=== PATIENT | male | born 1955 | race African-American/Black ===

== ENCOUNTER → 2018-03-29 | Outpatient (CLI) | payer MEDICARE, MEDICAID ==
[2017-04-11 14:57] VITALS: BP 149/76
[~2018-03-29] MED LIST: ALBU0.63 NEB; AMLO10TA6 PO; AZIT250T6 PO; CARV25TA PO; CARV25TA2 PO; CLON0.1T PO; DOXY100T PO; FLUT1DIS3 IH; FURO40TA4 PO; HYDR-2868 PO; HYDR-2869 PO; IPRA0.2S5 NEB; ISOS60TA2 PO; LISI-130 PO; METH4TAB2 PO; POTA10TA31 PO; SIMV20TA PO
--- NOTE | 2018-03-29 17:59 | CARD ---
MR#: [id number] Date of Study: 03/29/2018 Ordering Physician: CLAUDE LAUREANO, Referring Physician: CLAUDE LAUREANO, Tech: Rupali Garcia APPROVED REPORT EXAM: Two-dimensional and M-mode echocardiogram with Doppler and color Doppler. Other Information Quality : AverageHR: 38bpm INDICATION Cardiomyopathy RISK FACTORS Hypertension Hyperlipidemia Smoking 2D DIMENSIONS RVDd4.3 (2.9-3.5cm)Left Atrium(2D)4.3 (1.6-4.0cm) IVSd1.3 (0.7-1.1cm)Aortic Root(2D)4.0 (2.0-3.7cm) LVDd6.2 (3.9-5.9cm)LVOT Diameter2.3 (1.8-2.4cm) PWd1.2 (0.7-1.1cm)LVDs4.6 (2.5-4.0cm) FS (%) 24.8 %SV93.1 ml LVEF(%)48.3 (>50%) Aortic Valve AoV Peak Lorenzo.147.3cm/sAoV VTI30.3cm AO Peak GR.8.7mmHgLVOT Peak Lorenzo.73.3cm/s LVOT VTI 17.14cmAO Mean GR.5mmHg BILLY (VMAX)1.23cl8OLE (VTI)2.39cm2 AI P 1/2 Xqsj237nm Mitral Valve MV E Ssqjrigp07.7cm/sMV E Peak Gr.84mmHg MV DECEL [id number] A Unyipwgy76.6cm/s MV TKK81ojV/A Ratio1.4 MVA (PHT)3.16cm2 TDI E/Lateral E'8.1E/Medial E'7.1 Pulmonary Valve PV Peak Wgsgzfuf335.7cm/sPV Peak Grad.4mmHg Tricuspid Valve TR P. Ajklpbqd368gv/sRAP WPUABQEK7bqGo TR Peak Gr.58cyXyBSPM24hvDq LEFT VENTRICLE The Left Ventricle is mildly dilated. There is mild concentric left ventricular hypertrophy. The left ventricular systolic function is moderately impaired. The Ejection Fraction is 35%. There is global hypokinesis of the left ventricle. RIGHT VENTRICLE The right ventricle is mildly dilated. There is normal right ventricular wall thickness. The right ve ntricular systolic function is normal. ATRIA The left atrium size is normal. The right atrium is moderately dilated. The interatrial septum is int act with no evidence for an atrial septal defect or patent foramen ovale as noted on 2-D or Doppler i maging. AORTIC VALVE The aortic valve is normal in structure and function. Doppler and Color Flow revealed mild to moderat e aortic regurgitation. There is no significant aortic valvular stenosis. MITRAL VALVE The mitral valve is normal in structure and function. There is no mitral valve stenosis. Doppler and Color-flow revealed mild mitral regurgitation. TRICUSPID VALVE The tricuspid valve is normal in structure and function. Doppler and Color Flow revealed trace tricus pid regurgitation. There is no tricuspid valve stenosis. PULMONIC VALVE The pulmonic valve is not well visualized. Doppler and Color Flow revealed trace pulmonic valvular re gurgitation. GREAT VESSELS The aortic root is mildly enlarged. The IVC is normal in size and collapses >50% with inspiration. PERICARDIAL EFFUSION There is no evidence of significant pericardial effusion. Critical Notification Critical Value: No <Conclusion> The left ventricular systolic function is moderately impaired. The Ejection Fraction is 35%. Mild to moderate aortic regurgitation. Mild mitral regurgitation. Trace tricuspid regurgitation. There is no evidence of significant pericardial effusion. Signed by : Talat Schwartz, Electronically Approved : 03/29/2018 17:58:00
== END | disposition home or self-care (01) ==
LOC: ECHO 11:04
PROVIDERS: ATTEND Internal Medicine Cardiovascular Disease
DX: I08.0 Rheumatic disorders of both mitral and aortic valves (principal); I13.0 Hypertensive heart and chronic kidney disease with heart failure and stage 1 through stage 4 chronic kidney disease, or unspecified chronic kidney disease; I50.20 Unspecified systolic (congestive) heart failure; N18.3 Chronic kidney disease, stage 3 (moderate); E78.5 Hyperlipidemia, unspecified; F17.210 Nicotine dependence, cigarettes, uncomplicated
CPT/HCPCS: 93306

== ENCOUNTER 2019-01-12 03:50 | Inpatient (IN) | payer MEDICARE, MEDICAID ==
[~2019-01-12] VITALS: Ht 185.4 cm; Wt 81.9 kg
[2019-01-12] VITALS (17 sets, daily range): BP systolic 104–152; BP diastolic 64–91
[~2019-01-12 03:50] MED LIST changes: -AMLO10TA6 PO; +AMLO10TA8 PO
[2019-01-12 04:15] LABS: BASO # 0.1 x10^3/uL (0.0-0.2); BASO % 1 % (0-3); EOS # 0.2 x10^3/uL (0.0-0.7); EOS % 2 % (0-3); HEMATOCRIT 46.3 % (39.0-53.0); HEMOGLOBIN 15.9 g/dL (13.0-17.5); LYMPH # 1.4 x10^3/uL (1.0-4.8); LYMPH % 16 % (24-48); MEAN CORPUSCULAR HEMOGLOBIN 33 pg (25-35); MEAN CORPUSCULAR HGB CONC 34 g/dL (31-37); MEAN CORPUSCULAR VOLUME 97 fL (79-100); MONO # 1.2 x10^3/uL (0.0-1.1); MONO % 13 % (0-9); NEUT # 6.2 x10^3/uL (1.8-7.7); NEUT % 69 % (31-73); PLATELET COUNT 110 x10^3/uL (140-400); RED BLOOD COUNT 4.79 x10^6/uL (4.30-5.70); RED CELL DISTRIBUTION WIDTH 15.1 % (11.5-14.5)
[2019-01-12] MEDS ORDERED: methylPREDNISolone SOD SUCC PF 125 MG/2 ML VIAL. IV ONE (04:15)
[2019-01-12] MEDS ORDERED: IPRATRPIUM/ALBUTEROL 0.5/2.5MG 3 ML NEBU. NEB ONE (04:15)
[2019-01-12 04:32] LABS: ALBUMIN 3.6 g/dL (3.4-5.0); CALCIUM 9.7 mg/dL (8.5-10.1); CREATININE 1.4 mg/dL (0.7-1.3); GFR 62.1; POTASSIUM 3.8 mmol/L (3.5-5.1); TOTAL BILIRUBIN 0.7 mg/dL (0.2-1.0); TOTAL PROTEIN 7.1 g/dL (6.4-8.2)
--- NOTE | 2019-01-12 04:34 | PHYS DOC ---
Past Medical History Past Medical History: Asthma, CHF, COPD, Hypertension Past Surgical History: Other Additional Past Surgical Histo: HERNIA, L KNEE Alcohol Use: Occasionally Drug Use: Marijuana Adult General Chief Complaint Chief Complaint: SHORTNESS OF BREATH HPI HPI 63-year-old male presents to the emergency department with complaints of shortness of breath, cough nonproductive. Patient is well describes left flank and back pain no injury. History of COPD, tobacco abuse, alcohol use, THC, cocaine. Most recent cocaine use approximately 3 days ago. Patient states shortness of breath started today as used nebulizer treatments however no significant improvement. Patient called EMS given his continued shortness of breath low oxygen concern. Patient denies any chest pain, nausea, vomiting, abdominal pain, headache, visual changes. Exertion makes his shortness of breath worse. Review of Systems Review of Systems Constitutional: Denies fever or chills [] Eyes: Denies change in visual acuity, redness, or eye pain [] HENT: Denies nasal congestion Respiratory: Shortness of breath Cardiovascular: No additional information not addressed in HPI [] GI: Denies abdominal pain, nausea, vomiting, bloody stools or diarrhea [] : Denies dysuria or hematuria [] Musculoskeletal: left side low back pain Integument: Denies rash or skin lesions [] Neurologic: Denies headache, focal weakness or sensory changes [] All other systems were reviewed and found to be within normal limits, except as documented in this note. Current Medications Current Medications Current Medications Medications (Trade) Dose Ordered Sig/Dex Start Time Stop Time Status Last Admin Dose Admin Albuterol/ Ipratropium (Duoneb) 3 ml RTQID 01/12/19 08:00 01/13/19 07:59 Info (CONTRAST GIVEN -- Rx MONITORING) 1 each PRN DAILY PRN 01/12/19 05:15 01/14/19 05:14 Iohexol (Omnipaque 300 Mg/ml) 75 ml 1X ONCE 01/12/19 05:15 01/12/19 05:16 DC Methylprednisolone Sodium Succinate (SOLU-Medrol 125MG VIAL) 125 mg 1X ONCE 01/12/19 04:15 01/12/19 04:16 DC 01/12/19 04:51 125 MG Ondansetron HCl (Zofran) 4 mg PRN Q8HRS PRN 01/12/19 05:45 01/13/19 05:44 Piperacillin Sod/ Tazobactam Sod 4.5 gm/Sodium Chloride 100 ml @ 200 mls/hr 1X ONCE 01/12/19 06:00 01/12/19 06:29 01/12/19 06:04 200 MLS/HR Vancomycin HCl 1.75 gm/Sodium Chloride 500 ml @ 250 mls/hr 1X ONCE 01/12/19 06:00 01/12/19 07:59 Allergies Allergies Allergies Coded Allergies Type Severity Reaction Last Updated Verified No Known Drug Allergies 07/18/13 No Physical Exam Physical Exam Constitutional: Well developed, well nourished, no acute distress, non-toxic appearance. [] HENT: Normocephalic, atraumatic, bilateral external ears normal, oropharynx moist, no oral exudates, nose normal. [] Eyes: PERRLA, EOMI, conjunctiva normal, no discharge. [] Cardiovascular: Bradycardia Lungs & Thorax: Bilateral breath sounds clear to auscultation [] Abdomen: Bowel sounds normal, soft, no tenderness, no masses, no pulsatile masses. [] Skin: Warm, dry, no erythema, no rash. [] Back: TTP low back, no significant flank tenderness on exam Extremities: No tenderness, no cyanosis, no clubbing, ROM intact, no edema. [] Neurologic: Alert and oriented X 3, no focal deficits noted. [] Psychologic: Affect normal, judgement normal, mood normal. [] Current Patient Data Vital Signs Vital Signs Date Time Temp Pulse Resp B/P (MAP) Pulse Ox O2 Delivery O2 Flow Rate FiO2 01/12/19 04:53 39 173/80 (111) 92 Room Air 01/12/19 04:15 3.0 01/12/19 03:50 97.6 24 97.6 Lab Values Laboratory Tests Test 01/12/19 03:55 01/12/19 04:15 01/12/19 05:00 01/12/19 05:42 Sodium Level 143 mmol/L (136-145) Potassium Level 3.8 mmol/L (3.5-5.1) Chloride Level 107 mmol/L (98-107) Carbon Dioxide Level 26 mmol/L (21-32) Anion Gap 10 (6-14) Blood Urea Nitrogen 22 mg/dL (8-26) Creatinine 1.4 mg/dL (0.7-1.3) H Estimated GFR (Cockcroft-Gault) 62.1 BUN/Creatinine Ratio 16 (6-20) Glucose Level 86 mg/dL (70-99) Calcium Level 9.7 mg/dL (8.5-10.1) Total Bilirubin 0.7 mg/dL (0.2-1.0) Aspartate Amino Transferase (AST) 15 U/L (15-37) Alanine Aminotransferase (ALT) 15 U/L (16-63) L Alkaline Phosphatase 78 U/L (46-116) Troponin I Quantitative 0.051 ng/mL (0.000-0.055) UN-Pch-E-Type Natriuretic Peptide 1600 pg/mL (0-124) H Total Protein 7.1 g/dL (6.4-8.2) Albumin 3.6 g/dL (3.4-5.0) Albumin/Globulin Ratio 1.0 (1.0-1.7) White Blood Count 9.0 x10^3/uL (4.0-11.0) Red Blood Count 4.79 x10^6/uL (4.30-5.70) Hemoglobin 15.9 g/dL (13.0-17.5) Hematocrit 46.3 % (39.0-53.0) Mean Corpuscular Volume 97 fL (79-100) Mean Corpuscular Hemoglobin 33 pg (25-35) Mean Corpuscular Hemoglobin Concent 34 g/dL (31-37) Red Cell Distribution Width 15.1 % (11.5-14.5) H Platelet Count 110 x10^3/uL (140-400) L Neutrophils (%) (Auto) 69 % (31-73) Lymphocytes (%) (Auto) 16 % (24-48) L Monocytes (%) (Auto) 13 % (0-9) H Eosinophils (%) (Auto) 2 % (0-3) Basophils (%) (Auto) 1 % (0-3) Neutrophils # (Auto) 6.2 x10^3/uL (1.8-7.7) Lymphocytes # (Auto) 1.4 x10^3/uL (1.0-4.8) Monocytes # (Auto) 1.2 x10^3/uL (0.0-1.1) H Eosinophils # (Auto) 0.2 x10^3/uL (0.0-0.7) Basophils # (Auto) 0.1 x10^3/uL (0.0-0.2) Urine Opiates Screen Neg (NEG) Urine Methadone Screen Neg (NEG) Urine Barbiturates Neg (NEG) Urine Phencyclidine Screen Neg (NEG) Urine Amphetamine/Methamphetamine Neg (NEG) Urine Benzodiazepines Screen Neg (NEG) Urine Cocaine Screen Pos (NEG) Urine Cannabinoids Screen Neg (NEG) Urine Ethyl Alcohol Neg (NEG) O2 Saturation 91 % (92-99) L Arterial Blood pH 7.41 (7.35-7.45) Arterial Blood pCO2 at Patient Temp 37 mmHg (35-46) Arterial Blood pO2 at Patient Temp 58 mmHg (65-108) L Arterial Blood HCO3 23 mmol/L (21-28) Arterial Blood Base Excess -1 mmol/L (-3-3) FiO2 40 Laboratory Tests 01/12/19 04:15 Laboratory Tests 01/12/19 03:55 EKG EKG EKG reviewed, sinus bradycardia heart rate 48. Evidence of left bundle branch block however present on previous EKGs comparison in March 2017. Patient does have evidence of T-wave inversion V5 V6, this was present as well in 2017.[] Interpretation Time: Interpretation time 0 359 Radiology/Procedures Radiology/Procedures [facility] [address], [place] [id number] IMAGING REPORT Signed PATIENT: NEIL EWING ACCOUNT: [id number] : 1955 LOCATION: ER AGE: 63 SEX: M EXAM STATUS: REG ER ORD. PHYSICIAN: ALBARO SESAY MD REASON: abnormal chest xray, Dyspnea PROCEDURE: CT CHEST W/CONTRAST Examination: CT chest with IV contrast HISTORY: History of abnormal chest x-ray, dyspnea COMPARISON: 04/10/2017 TECHNIQUE: Axial CT images of chest were performed with IV contrast. Coronal and sagittal reformats are performed. Exposure: One or more of the following individualized dose reduction techniques were utilized for this examination: 1. Automated exposure control 2. Adjustment of the mA and/or kV according to patient size 3. Use of iterative reconstruction technique FINDINGS: 1.2 cm hypodensity identified in the left lobe of the thyroid gland.. Mild cardiomegaly. Coronary artery calcifications identified. There is occlusion of the right upper lobe bronchus with moderate size opacity in the right upper lobe with collapse of the right upper lobe likely postobstructive atelectasis possibly secondary to endobronchial pathology/mass. Mild patchy airspace opacities identified in the left lung base. Emphysematous bullae identified in the bilateral apical lungs. The liver, spleen, grossly appears unremarkable. Mild prominent appearing left adrenal gland. Moderate degenerative changes thoracic spine. IMPRESSION: 1. Collapse of the right upper lobe of the lung with occlusion of the right upper lobe bronchus suspicious for endobronchial mass or pathology. Recommend bronchoscopic evaluation. 2. Patchy airspace opacities identified in the left lung base likely atelectasis or infiltrates. 3. Mild prominent left adrenal gland partially visualized could be adrenal adenoma or metastasis or hyperplasia. 4. 1.2 cm hypodensity identified in the left lobe of the thyroid gland. Consider follow-up ultrasound thyroid for further evaluation. Electronically signed by: Mello Daniel MD (01/12/2019 5:29 AM) [facility] [place] DICTATED and SIGNED BY: MELLO DANIEL MD DATE: 01/12/19 0529 [] [facility] [address] [place] [address] IMAGING REPORT Signed PATIENT: NEIL EWING ACCOUNT: [id number] : 1955 LOCATION: ER AGE: 63 SEX: M EXAM STATUS: REG ER ORD. PHYSICIAN: ALBARO SESAY MD REASON: sob PROCEDURE: CHEST AP ONLY EXAM: CHEST 1 VIEW History: Shortness of breath COMPARISON: 04/09/2017 TECHNIQUE: Single portable radiograph of the chest Findings/ impression: Mild cardiomegaly. Moderate opacity identified in the right upper lobe of the lungs could be central obstructing mass or postobstructive atelectasis or pneumonia. Follow-up CT is recommended. Electronically signed by: Mello Daniel MD (01/12/2019 4:53 AM) [facility] DICTATED and SIGNED BY: MELLO DANIEL MD DATE: 01/12/19 0453 Course & Med Decision Making Course & Med Decision Making Pertinent Labs and Imaging studies reviewed. (See chart for details) []63-year-old male presents to the emergency department with complaints of shortness of breath, cough nonproductive. Patient is well describes left flank and back pain no injury. History of COPD, tobacco abuse, alcohol use, THC, cocaine. Most recent cocaine use approximately 3 days ago. Patient states shortness of breath started today as used nebulizer treatments however no significant improvement. Patient called EMS given his continued shortness of breath low oxygen concern. Patient denies any chest pain, nausea, vomiting, abdominal pain, headache, visual changes. Exertion makes his shortness of breath worse. Labs and imaging reviewed. BNP 1600, troponin 0.051, creatinine 1.4, pleasant, 110. Impression is pending. Chest x-ray reveals evidence of moderate opacity in right upper lobe with concern for obstructing mass or postobstructive ate lectasis or pneumonia. CT is pending. Patient received 125 Solu-Medrol, DuoNeb treatment upon arrival. Saturations have been 88-90% on 5 L. Patient is resting comfortably. ABG is pending - 7.41/37/58/[address] reveals evidence of complete collapse of right upper lobe likely secondary to endobronchial mass with evidence of postobstructive pneumonia. Antibiotics provided in the emergency department. We'll plan for admission and further evaluation with pulmonary consultation, plan for likely bronchoscopy. Discussed admit with Hospitalist. Arsenio Disclaimer Dragon Disclaimer This electronic medical record was generated, in whole or in part, using a voice recognition dictation system. Departure Departure Impression: Primary Impression: COPD exacerbation Additional Impressions: Lung mass Pneumonia Hypoxia Disposition: ADMITTED INPATIENT Admitting Physician: HIMZac Condition: STABLE Referrals: NO PCP (PCP) Problem Qualifiers Additional Impressions: Pneumonia Pneumonia type: due to unspecified organism Laterality: right Lung location: upper lobe of lung Qualified Codes: J18.1 - Lobar pneumonia, unspecified organism ALBARO SESAY MD Jan 12, 2019 04:34
--- NOTE | 2019-01-12 04:56 | RAD ---
EXAM: CHEST 1 VIEW History: Shortness of breath COMPARISON: 04/09/2017 TECHNIQUE: Single portable radiograph of the chest Findings/ impression: Mild cardiomegaly. Moderate opacity identified in the right upper lobe of the lungs could be central obstructing mass or postobstructive atelectasis or pneumonia. Follow-up CT is recommended. Electronically signed by: Mello Daniel MD (01/12/2019 4:53 AM) [facility]
[2019-01-12] MEDS ORDERED: IOHEXOL 300 MG/ML 100ML VIAL. IV ONE (05:15)
[2019-01-12] MEDS ORDERED: CONTRAST GIVEN. MC PRN (05:15)
--- NOTE | 2019-01-12 05:33 | RAD ---
Examination: CT chest with IV contrast HISTORY: History of abnormal chest x-ray, dyspnea COMPARISON: 04/10/2017 TECHNIQUE: Axial CT images of chest were performed with IV contrast. Coronal and sagittal reformats are performed. Exposure: One or more of the following individualized dose reduction techniques were utilized for this examination: 1. Automated exposure control 2. Adjustment of the mA and/or kV according to patient size 3. Use of iterative reconstruction technique FINDINGS: 1.2 cm hypodensity identified in the left lobe of the thyroid gland.. Mild cardiomegaly. Coronary artery calcifications identified. There is occlusion of the right upper lobe bronchus with moderate size opacity in the right upper lobe with collapse of the right upper lobe likely postobstructive atelectasis possibly secondary to endobronchial pathology/mass. Mild patchy airspace opacities identified in the left lung base. Emphysematous bullae identified in the bilateral apical lungs. The liver, spleen, grossly appears unremarkable. Mild prominent appearing left adrenal gland. Moderate degenerative changes thoracic spine. IMPRESSION: 1. Collapse of the right upper lobe of the lung with occlusion of the right upper lobe bronchus suspicious for endobronchial mass or pathology. Recommend bronchoscopic evaluation. 2. Patchy airspace opacities identified in the left lung base likely atelectasis or infiltrates. 3. Mild prominent left adrenal gland partially visualized could be adrenal adenoma or metastasis or hyperplasia. 4. 1.2 cm hypodensity identified in the left lobe of the thyroid gland. Consider follow-up ultrasound thyroid for further evaluation. Electronically signed by: Mello Daniel MD (01/12/2019 5:29 AM) [facility]
[2019-01-12 05:36] LABS: BARBITURATES NEG (NEG); BENZODIAZEPINES NEG (NEG); CANNABINOIDS NEG (NEG); COCAINE POS (NEG); METHADONE NEG (NEG); OPIATES NEG (NEG); PHENCYCLIDINE NEG (NEG)
[2019-01-12 05:37] LABS: AMPHETAMINE/METHAMPHETAMINE NEG (NEG)
[2019-01-12] MEDS ORDERED: ONDANSETRON PF 4 MG/2 ML VIAL. IV PRN (05:45)
[2019-01-12 05:58] LABS: BASE EXCESS ABG -1 mmol/L (-3-3); HCO3 ABG 23 mmol/L (21-28); PCO2 ABG 37 mmHg (35-46); PO2 ABG 58 mmHg (65-108); SAT O2 ABG 91 % (92-99)
[2019-01-12 05:59] LABS: FIO2 ABG 40
[2019-01-12] MEDS ORDERED: PIPERACILLIN/TAZOBACTAM 4.5 GM in IV NORMAL SALINE 100ML 100 ML IV ONE (06:00)
[2019-01-12] MEDS ORDERED: VANCOMYCIN 1.75 GM in IV NORMAL SALINE 500ML BAG 500 ML IV ONE (06:00)
--- NOTE | 2019-01-12 07:03 | EKG ---
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
[2019-01-12] MEDS ORDERED: FLU VAX QS 2019-20 (36MOS+)/PF 0.5 ML SYRINGE. VAX IM ONE (08:00)
[2019-01-12] MEDS: IPRATRPIUM/ALBUTEROL 0.5/2.5MG 3 ML NEBU. NEB SCH ×6 (08:34→20:08)
--- NOTE | 2019-01-12 09:13 | PDOC2 ---
LORRAINE VILLEGAS SEEING EYE DOG TRAINER 01/12/19 0913: CARDIAC CONSULT DATE OF CONSULT Date of Consult DATE: 01/12/19 TIME: 09:04 REASON FOR CONSULT Reason for Consult: Bradycardia REFERRING PHYSICIAN Referring Physician: Delfino SOURCE Source: Chart review, Patient HISTORY OF PRESENT ILLNESS HISTORY OF PRESENT ILLNESS This is a pleasant 63 yo male admitted for complains of shortness of breath. He has been SOA in the last few days but more pronounced yesterday. Sometimes he was wheezing and with cough but nonproductive. Denies any chest pain or palpitations. No frequent dizziness or passing out. Upon admission he was noted with right lung mass which is new for him. Currently he is compensated with Venti mask. He continues to smoke tobacco and use cocaine. No significant increase in leg swelling. PAST MEDICAL HISTORY Past Medical History Cardiovascular: CHF, HTN, NICM Pulmonary: Asthma, COPD GI: Hemorrhoids Heme/Onc: No pertinent hx Hepatobiliary: No pertinent hx Psych: No pertinent hx Rheumatologic: No pertinent hx Infectious disease: No pertinent hx ENT: No pertinent hx Renal/: Chronic renal insufficiency Endocrine: No pertinent hx Dermatology: No pertinent hx PAST SURGICAL HISTORY Past Surgical History hemorrhoidectomy and left inguinal hernia repair; Childhood torn ligament to left knee with repair FAMILY HISTORY Family History Mother at 72 with WA and DM Father at 80 with WA Brother 1 with brain tumor at 50 Brother 2 & 3 alive with CHF Sister alive with CHF as well SOCIAL HISTORY Social History Smoke: <1 pack per day ALCOHOL: occassional Drugs: Cocaine, Marijuana Lives: Alone CURRENT MEDICATIONS CURRENT MEDICATIONS Current Medications Medications (Trade) Dose Ordered Sig/Dex Route PRN Reason Start Time Stop Time Status Last Admin Dose Admin Albuterol/ Ipratropium (Duoneb) 3 ml 1X ONCE NEB 01/12/19 04:15 01/12/19 04:16 DC 01/12/19 04:17 Methylprednisolone Sodium Succinate (SOLU-Medrol 125MG VIAL) 125 mg 1X ONCE IV 01/12/19 04:15 01/12/19 04:16 DC 01/12/19 04:51 Piperacillin Sod/ Tazobactam Sod 4.5 gm/Sodium Chloride 100 ml @ 200 mls/hr 1X ONCE IV 01/12/19 06:00 01/12/19 06:29 DC 01/12/19 06:04 Vancomycin HCl 1.75 gm/Sodium Chloride 500 ml @ 250 mls/hr 1X ONCE IV 01/12/19 06:00 01/12/19 07:59 DC 01/12/19 08:04 Albuterol/ Ipratropium (Duoneb) 3 ml RTQID NEB 01/12/19 08:00 01/13/19 07:59 01/12/19 08:34 ALLERGIES ALLERGIES: Coded Allergies: No Known Drug Allergies (Unverified , 07/18/13) ROS Review of System 14 point ROS evaluated with pertinent positives noted per HPI PHYSICAL EXAM General: Alert, Oriented X3, Cooperative, mild distress HEENT: Atraumatic, Mucous membr. moist/pink Lungs: Other (diminished) Heart: Regular rate (SR/SB), Normal S1, Normal S2, Other (2/6 systolic murmur to LLS border) Abdomen: Soft, No tenderness Extremities: No cyanosis, Other (1+ bilateral LE pitting edema) Skin: No breakdown, No significant lesion Neuro: Normal speech, Sensation intact Psych/Mental Status: Mental status NL, Mood NL MUSCULOSKELETAL: Osteoarthritic changes both hands VITALS/I&O VITALS/I&O: Vital Signs Date Time Temp Pulse Resp B/P (MAP) Pulse Ox O2 Delivery O2 Flow Rate FiO2 01/12/19 08:34 92 Venturi Mask 15.0 01/12/19 05:57 64 155/83 (107) 01/12/19 03:50 97.6 24 97.6 LABS Lab: Laboratory Tests Test 01/12/19 03:55 01/12/19 04:15 01/12/19 05:00 01/12/19 05:42 Sodium Level 143 mmol/L (136-145) Potassium Level 3.8 mmol/L (3.5-5.1) Chloride Level 107 mmol/L (98-107) Carbon Dioxide Level 26 mmol/L (21-32) Anion Gap 10 (6-14) Blood Urea Nitrogen 22 mg/dL (8-26) Creatinine 1.4 mg/dL (0.7-1.3) H Estimated GFR (Cockcroft-Gault) 62.1 BUN/Creatinine Ratio 16 (6-20) Glucose Level 86 mg/dL (70-99) Calcium Level 9.7 mg/dL (8.5-10.1) Total Bilirubin 0.7 mg/dL (0.2-1.0) Aspartate Amino Transferase (AST) 15 U/L (15-37) Alanine Aminotransferase (ALT) 15 U/L (16-63) L Alkaline Phosphatase 78 U/L (46-116) Troponin I Quantitative 0.051 ng/mL (0.000-0.055) OY-Wew-C-Type Natriuretic Peptide 1600 pg/mL (0-124) H Total Protein 7.1 g/dL (6.4-8.2) Albumin 3.6 g/dL (3.4-5.0) Albumin/Globulin Ratio 1.0 (1.0-1.7) White Blood Count 9.0 x10^3/uL (4.0-11.0) Red Blood Count 4.79 x10^6/uL (4.30-5.70) Hemoglobin 15.9 g/dL (13.0-17.5) Hematocrit 46.3 % (39.0-53.0) Mean Corpuscular Volume 97 fL (79-100) Mean Corpuscular Hemoglobin 33 pg (25-35) Mean Corpuscular Hemoglobin Concent 34 g/dL (31-37) Red Cell Distribution Width 15.1 % (11.5-14.5) H Platelet Count 110 x10^3/uL (140-400) L Neutrophils (%) (Auto) 69 % (31-73) Lymphocytes (%) (Auto) 16 % (24-48) L Monocytes (%) (Auto) 13 % (0-9) H Eosinophils (%) (Auto) 2 % (0-3) Basophils (%) (Auto) 1 % (0-3) Neutrophils # (Auto) 6.2 x10^3/uL (1.8-7.7) Lymphocytes # (Auto) 1.4 x10^3/uL (1.0-4.8) Monocytes # (Auto) 1.2 x10^3/uL (0.0-1.1) H Eosinophils # (Auto) 0.2 x10^3/uL (0.0-0.7) Basophils # (Auto) 0.1 x10^3/uL (0.0-0.2) Urine Opiates Screen Neg (NEG) Urine Methadone Screen Neg (NEG) Urine Barbiturates Neg (NEG) Urine Phencyclidine Screen Neg (NEG) Urine Amphetamine/Methamphetamine Neg (NEG) Urine Benzodiazepines Screen Neg (NEG) Urine Cocaine Screen Pos (NEG) Urine Cannabinoids Screen Neg (NEG) Urine Ethyl Alcohol Neg (NEG) O2 Saturation 91 % (92-99) L Arterial Blood pH 7.41 (7.35-7.45) Arterial Blood pCO2 at Patient Temp 37 mmHg (35-46) Arterial Blood pO2 at Patient Temp 58 mmHg (65-108) L Arterial Blood HCO3 23 mmol/L (21-28) Arterial Blood Base Excess -1 mmol/L (-3-3) FiO2 40 Test 01/12/19 06:55 Troponin I Quantitative 0.049 ng/mL (0.000-0.055) Laboratory Tests 01/12/19 04:15 Laboratory Tests 01/12/19 03:55 ECHOCARDIOGRAM ECHOCARDIOGRAM <Conclusion> The left ventricular systolic function is moderately impaired. The Ejection Fraction is 35%. Mild to moderate aortic regurgitation. Mild mitral regurgitation. Trace tricuspid regurgitation. There is no evidence of significant pericardial effusion. DATE: 03/29/181757 ASSESSMENT/PLAN ASSESSMENT/PLAN 1. Bradycardia: Mainly SB with episodes of Wenkebach with underlying high dose coreg 2. Dyspnea: mainly due to RUL collapse with possible endobronchial mass 3. Substance abuse: UDS+cocaine 4. NICM: last EF 35% 5. Chronic systolic CHF: compensated 6. Chronic LBBB 7. HTN 8. CKD3 9. Hx of noncompliance 10. COPD with continued tobaccoism Recommendations 1. He has deferred AICD in the past. Will DC coreg at this time. Start on hydralazine and imdur 2. Await pulmonary input. 3. Will monitor BP and HR trend without coreg. TTE today and note EF, PAP and any potential tumor infiltration in the cardiac region 4. Smoking and cocaine cessation discussed. 5. Supportive care. KENIA SHEPHERD MD 01/12/192033: CARDIAC CONSULT ASSESSMENT/PLAN ASSESSMENT/PLAN Patient seen and examined. 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 Tele showed Mobitz type I second degree AVB/wenckebach Last echo showed EF 35%, clinically well compensated. Repeat echo to monitor LVF. He declined ICD in past as noted above Pulm following for RUL collapse Thank you for your consultation LORRAINE VILLEGAS APRN Jan 12, 2019 09:13 KENIA SHEPHERD MD Jan 12, 2019 20:34
--- NOTE | 2019-01-12 11:04 | CONS ---
DATE OF CONSULTATION: 01/12/2019 PULMONARY CONSULTATION ATTENDING PHYSICIAN: Dr. Hamilton. REASON FOR CONSULTATION: Abnormal CT chest and hypoxia. HISTORY OF PRESENT ILLNESS: The patient is a 63-year-old male who has 30 years of tobacco use, 1 pack per day and history of cocaine, alcohol and marijuana abuse. The patient presented to the hospital complaining of shortness of breath. He had some back pain. No anterior chest pain. He has a mild cough, no hemoptysis, no weight loss. No headaches, no nausea, vomiting or diarrhea. The patient had a chest x-ray, which showed opacification in the right upper lobe. As a result, CT chest was performed and it showed collapse of the right upper lobe with occlusion of the right upper lobe bronchus. Suspicion for endobronchial mass versus mucus plug. I have been asked to see him for further evaluation. There was also mildly prominent left adrenal gland. The patient is currently requiring oxygen via Ventimask at 15 liters. PAST MEDICAL HISTORY: Significant for history of tobaccoism, suspect underlying COPD. History of CHF, hypertension. His echocardiogram in 03/2018 had an EF of 35% and [id number] aortic regurgitation. PAST SURGICAL HISTORY: Hernia and knee surgery. SOCIAL HISTORY: Smoker for 30 years, 1 pack per day; history of marijuana use for 15 years; history of cocaine abuse for 7-8 years; and history of alcohol use. REVIEW OF SYSTEMS: 12-point system obtained. Pertinent positives discussed in my history of present illness, otherwise, noncontributory. All systems that were negative were reviewed as well. ALLERGIES: None. MEDICATIONS: Reviewed as listed in the MRAD. PHYSICAL EXAMINATION: VITAL SIGNS: Reviewed. Blood pressure on the high side; pulse ox 84% on room air, now 92% on 15 liters Venturi mask. HEENT: Sclerae nonicteric. NECK: Supple. LUNGS: Diminished breath sounds at the right upper chest. CARDIOVASCULAR: With a regular rate. ABDOMEN: Soft, nontender. EXTREMITIES: With no pitting edema. LABORATORY DATA: Reviewed. White cell count 9.0, hemoglobin 15.9 and platelets are 110. BUN 22 and a creatinine of 1.4. TSH 0.2. ABGs with a pH of 7.41, pCO2 of 37, and pO2 of 58 on 40% FiO2. IMPRESSION: 1. Acute hypoxic respiratory failure secondary to multifactorial etiologies including combination of underlying chronic obstructive pulmonary disease, right upper lobe collapse. Cannot exclude the possibility of thromboembolic disease. 2. Long history of tobacco use, suspect underlying chronic obstructive pulmonary disease. Along with cocaine, marijuana and alcohol abuse. 3. Abnormal CT chest with right upper lobe collapse. Likely postobstructive. Possibility of endobronchial lesion cannot be ruled out. Mucous plug would be another consideration. 4. Cardiomyopathy with an ejection fraction of 35% based on previous echocardiogram, repeat echocardiogram has been ordered. Likely related to cocaine abuse. RECOMMENDATIONS: 1. Continue with present current oxygen. 2. Would consider doing a CT angiogram to rule out the possibility of thromboembolic disease. will wait till am to avoid contrast twice a day. 3. Currently requiring high flow oxygen at 15 liters via Venturi mask. Will need to have improvement in oxygenation before bronchoscopy can be performed safely. Tentatively, we will schedule for tomorrow if oxygenation improves and PE ruled out. 4. Follow Cardiology recommendation. 5. Monitor blood pressure closely. 6. Add bronchodilators. 7. Smoking cessation counseling provided. 8. Discussed with RN. We will follow along with you. Critical care time 37 minutes. SHARON ROJAS MD DR: MAYCO/yumiko JOB#: [id number] / [id number] JIMBO
[2019-01-12] MEDS ORDERED: PIP/TAZO PER PHARMACY MC PRN (12:30)
[2019-01-12] MEDS ORDERED: hydrALAZINE 20 MG/ML VIAL. IVP PRN (12:45)
[2019-01-12] MEDS: VANCOMYCIN PER PHARMACY MC PRN ×3 (12:47→12:50)
[2019-01-12] MEDS ORDERED: NON FORMULARY ITEM (Albuterol Sulfate (Albuterol Sulfate Neb Soln) 0.63 MG) NEB PRN (13:45)
[2019-01-12] MEDS ORDERED: ALBUTEROL SULFATE 2.5 MG/3 ML NEBU. NEB PRN (13:45)
[2019-01-12] MEDS ORDERED: NON FORMULARY ITEM (Methylprednisolone (Medrol) 1 PKG) PO SCH (13:45)
--- NOTE | 2019-01-12 13:58 | HP ---
ADMIT DATE: 01/12/2019 CHIEF COMPLAINT: Shortness of breath. HISTORY OF PRESENT ILLNESS: The patient is a pleasant elderly male who used to smoke. He has COPD, presented with shortness of breath. He has a nonproductive cough. He has been weak. He has got flank pain. I discussed the case with ER physician. It appears that patient has COPD exacerbation, but was also found a possible lung mass. We are going to admit the patient and consult Pulmonary. As I understand, patient may be going for a bronchoscopy tomorrow. PAST MEDICAL HISTORY: COPD, tobacco abuse, CHF, asthma, hernia repair, left knee repair, marijuana use. ALLERGIES: None. FAMILY HISTORY: Coronary artery disease. SOCIAL HISTORY: He quit smoking, no drinking or drugs. MEDICATIONS: Reviewed, please refer to the MRAD. REVIEW OF SYSTEMS: GENERAL: No history of weight change, weakness or fevers. SKIN: No bruising, hair changes or rashes. EYES: No blurred, double or loss of vision. NOSE AND THROAT: No history of nosebleeds, hoarseness or sore throat. HEART: No history of palpitations, chest pain or shortness of breath on exertion. LUNGS: He complains of shortness of breath. GASTROINTESTINAL: Denies changes in appetite, nausea, vomiting, diarrhea or constipation. GENITOURINARY: No history of frequency, urgency, hesitancy or nocturia. NEUROLOGIC: Denies history of numbness, tingling, tremor or weakness. PSYCHIATRIC: No history of panic, anxiety or depression. ENDOCRINE: No history of heat or cold intolerance, polyuria or polydipsia. EXTREMITIES: Denies muscle weakness, joint pain, pain on walking or stiffness. PHYSICAL EXAMINATION: VITALS: Within normal limits and are stable. GENERAL: No apparent distress. Alert and oriented. HEENT: Head is normocephalic, atraumatic, pupils were equally round and reactive to light and accommodation. NECK: Supple, no JVD, no thyromegaly was noted. LUNGS: Clear to auscultation in all lung núñez without rhonchi or wheezing. HEART: RRR, S1, S2 present. Peripheral pulses intact, no obvious murmurs were noted. ABDOMEN: Soft, nontender. Positive bowel sounds no organomegaly, normal bowel sounds. EXTREMITIES: Without any cyanosis, clubbing, or edema. Pedal pulses intact, Homans sign is negative. NEUROLOGIC: Normal speech, normal tone. A & O x3, moves all extremities, no obvious focal deficits. PSYCHIATRIC: Normal affect, normal mood. Stable. SKIN: No ulcerations or rashes, good skin turgor, no jaundice. VASCULAR: Good capillary refill, neurovascular bundle appears to be intact.. LABORATORY DATA: White count is 9, hemoglobin 15.9, platelets 110. Electrolytes are normal. ASSESSMENT AND PLAN: Chronic obstructive pulmonary disease exacerbation with probable acute on chronic systolic and diastolic heart failure with an incidental finding of a lung mass. The patient has been admitted. We consulted Pulmonary. I understand he is going for a bronchoscopy probably tomorrow or the next day. Consult Cardiology, home meds, DVT prophylaxis, full code. PROGNOSIS: Guarded. KINA CONTRERAS DO DR: KALEB/yumiko JOB#: [id number] / [id number]
[2019-01-12] MEDS ORDERED: ISOSORBIDE MONONITRATE ER 30 MG TAB.ER.24H PO SCH (15:00)
[2019-01-12] MEDS: BUDESONIDE 0.5 MG/2 ML NEBU. NEB SCH ×2 (15:00→20:08)
--- NOTE | 2019-01-12 15:43 | NUR ---
SS following for discharge planning. SS reviewed pt chart. Pt is from home and is currently requiring oxygen. SS will continue to follow for discharge planning.
[2019-01-12] MEDS: PIPERACILLIN/TAZOBACTAM 3.375 GM in IV NORMAL SALINE 50ML 50 ML IV SCH ×3 (16:16→23:13)
[2019-01-12] MEDS: IV NORMAL SALINE 1000ML BAG 1,000 ML IV SCH (16:16)
[2019-01-12] MEDS: FUROSEMIDE 40 MG TABLET. PO SCH (16:17)
[2019-01-12] MEDS: methylPREDNISolone SOD SUCC PF 125 MG/2 ML VIAL. IV SCH ×3 (16:17→23:13)
[2019-01-12] MEDS: LISINOPRIL 20 MG TABLET PO SCH (16:20)
[2019-01-12] MEDS: amLODIPine BESYLATE 10 MG TABLET PO SCH (16:20)
[2019-01-12] MEDS: ISOSORBIDE MONONITRATE ER 30 MG TAB.ER.24H PO SCH (16:20)
[2019-01-12] MEDS: POTASSIUM CHLORIDE 10 MEQ TABLET.ER. PO SCH (16:21)
[2019-01-12] MEDS: cloNIDine HCL 0.1 MG TABLET PO SCH ×2 (16:21→21:09)
[2019-01-12] MEDS: hydrALAZINE 25 MG TABLET PO SCH ×2 (16:21→21:09)
[2019-01-12] MEDS ORDERED: CARVEDILOL 12.5 MG TABLET. PO SCH (17:00)
[2019-01-12] MEDS ORDERED: NON FORMULARY ITEM (Fluticasone/Salmeterol (Advair 250-50 Diskus) 1 PUFF) IH SCH (21:00)
[2019-01-12] MEDS ORDERED: DOXYCYCLINE HYCLATE 100 MG TABLET PO SCH (21:00)
[2019-01-12] MEDS: SIMVASTATIN 20 MG TABLET PO SCH (21:09)
[2019-01-12] MEDS: LACTOBACILLUS RHAMNOSUS GG 1 CAPSULE. PO SCH (21:09)
[2019-01-13] VITALS (22 sets, daily range): BP systolic 110–166; BP diastolic 59–95
[2019-01-13] MEDS: VANCOMYCIN 1 GM in IV NORMAL SALINE 250ML 250 ML IV SCH ×2 (01:33→21:23)
[2019-01-13] MEDS: IV NORMAL SALINE 1000ML BAG 1,000 ML IV SCH (01:33)
[2019-01-13 05:07] LABS: BASO % 0 % (0-3); EOS % 0 % (0-3); HEMATOCRIT 42.7 % (39.0-53.0); HEMOGLOBIN 14.5 g/dL (13.0-17.5); LYMPH # 0.4 x10^3/uL (1.0-4.8); LYMPH % 4 % (24-48); MEAN CORPUSCULAR HEMOGLOBIN 33 pg (25-35); MEAN CORPUSCULAR HGB CONC 34 g/dL (31-37); MEAN CORPUSCULAR VOLUME 98 fL (79-100); MONO # 0.3 x10^3/uL (0.0-1.1); MONO % 3 % (0-9); NEUT # 9.5 x10^3/uL (1.8-7.7); NEUT % 93 % (31-73); PLATELET COUNT 109 x10^3/uL (140-400); RED BLOOD COUNT 4.38 x10^6/uL (4.30-5.70); RED CELL DISTRIBUTION WIDTH 15.1 % (11.5-14.5); WHITE BLOOD COUNT 10.2 x10^3/uL (4.0-11.0)
[2019-01-13] MEDS: PIPERACILLIN/TAZOBACTAM 3.375 GM in IV NORMAL SALINE 50ML 50 ML IV SCH ×4 (05:09→23:49)
[2019-01-13] MEDS: methylPREDNISolone SOD SUCC PF 125 MG/2 ML VIAL. IV SCH ×4 (05:09→23:50)
[2019-01-13 05:16] LABS: ALBUMIN 2.8 g/dL (3.4-5.0); ALBUMIN/GLOBULIN RATIO 0.7 (1.0-1.7); CALCIUM 9.2 mg/dL (8.5-10.1); CREATININE 1.5 mg/dL (0.7-1.3); GFR 57.4; POTASSIUM 4.1 mmol/L (3.5-5.1); TOTAL BILIRUBIN 0.4 mg/dL (0.2-1.0); TOTAL PROTEIN 6.6 g/dL (6.4-8.2)
--- NOTE | 2019-01-13 07:29 | NUR ---
Phone call received from Dr. Flores-- order received to cancel Ch CTA, order received for VQ scan, CXR. Notified Dr. Flores of venti mask 50%. See VS.
[2019-01-13] MEDS: BUDESONIDE 0.5 MG/2 ML NEBU. NEB SCH ×2 (07:31→20:20)
[2019-01-13] MEDS: IPRATRPIUM/ALBUTEROL 0.5/2.5MG 3 ML NEBU. NEB SCH ×4 (07:31→20:20)
[2019-01-13 07:41] LABS: % LYMPHS 7 % (24-48); % MONOS 4 % (0-10); % SEGS 89 % (35-66)
[2019-01-13 07:42] LABS: PLT ESTIMATE DECREASED (ADEQUATE)
--- NOTE | 2019-01-13 07:51 | RAD ---
CHEST AP ONLY Clinical Indication: Right upper lobe mass or pneumonia Comparison: 04/07/2017 CT chest without contrast., 01/12/2019 Portable Chest X-ray Exam Findings: Portable upright frontal view of the chest was obtained. Cardiomegaly is present. Pulmonary vasculature is mildly congested. Right upper lobe atelectasis along the major minor fissure noted. No pleural effusion is appreciated. No acute bone abnormality. Left lateral pleural thickening or infiltrate is new in the interval Pulmonary hyperinflation noted. IMPRESSION: Decreasing right upper lobe atelectasis. New left lateral lower thoracic pleural thickening, atelectasis or infiltrate . Follow-up to resolution is recommended. Electronically signed by: Flex Donahue MD (01/13/2019 7:48 AM) [facility]
[2019-01-13] MEDS: POTASSIUM CHLORIDE 10 MEQ TABLET.ER. PO SCH (09:36)
[2019-01-13] MEDS: LACTOBACILLUS RHAMNOSUS GG 1 CAPSULE. PO SCH ×2 (09:37→21:23)
[2019-01-13] MEDS: LISINOPRIL 20 MG TABLET PO SCH (09:37)
[2019-01-13] MEDS: FUROSEMIDE 40 MG TABLET. PO SCH (09:37)
[2019-01-13] MEDS: ISOSORBIDE MONONITRATE ER 30 MG TAB.ER.24H PO SCH (09:38)
[2019-01-13] MEDS: hydrALAZINE 25 MG TABLET PO SCH ×3 (09:38→21:24)
--- NOTE | 2019-01-13 11:02 | PDOC ---
PULMONARY PROGRESS NOTES Subjective remains on 50%VM Vitals Vital Signs Date Time Temp Pulse Resp B/P (MAP) Pulse Ox O2 Delivery O2 Flow Rate FiO2 01/13/19 09:38 58 154/95 01/13/19 07:31 93 Venturi Mask 15.0 01/13/19 06:00 15 01/13/19 03:08 97.9 97.9 General: Alert, No acute distress Lungs: Crackles (bases) Cardiovascular: S1, S2 Abdomen: Soft, Non-tender Neuro Exam: Alert Extremities: No Edema Labs Laboratory Tests Test 01/12/19 03:55 01/12/19 04:15 01/12/19 05:00 01/12/19 05:42 Sodium Level 143 mmol/L (136-145) Potassium Level 3.8 mmol/L (3.5-5.1) Chloride Level 107 mmol/L (98-107) Carbon Dioxide Level 26 mmol/L (21-32) Anion Gap 10 (6-14) Blood Urea Nitrogen 22 mg/dL (8-26) Creatinine 1.4 mg/dL (0.7-1.3) Estimated GFR (Cockcroft-Gault) 62.1 BUN/Creatinine Ratio 16 (6-20) Glucose Level 86 mg/dL (70-99) Calcium Level 9.7 mg/dL (8.5-10.1) Total Bilirubin 0.7 mg/dL (0.2-1.0) Aspartate Amino Transf (AST/SGOT) 15 U/L (15-37) Alanine Aminotransferase (ALT/SGPT) 15 U/L (16-63) Alkaline Phosphatase 78 U/L (46-116) Troponin I Quantitative 0.051 ng/mL (0.000-0.055) TZ-Vlu-B-Type Natriuretic Peptide 1600 pg/mL (0-124) Total Protein 7.1 g/dL (6.4-8.2) Albumin 3.6 g/dL (3.4-5.0) Albumin/Globulin Ratio 1.0 (1.0-1.7) White Blood Count 9.0 x10^3/uL (4.0-11.0) Red Blood Count 4.79 x10^6/uL (4.30-5.70) Hemoglobin 15.9 g/dL (13.0-17.5) Hematocrit 46.3 % (39.0-53.0) Mean Corpuscular Volume 97 fL (79-100) Mean Corpuscular Hemoglobin 33 pg (25-35) Mean Corpuscular Hemoglobin Concent 34 g/dL (31-37) Red Cell Distribution Width 15.1 % (11.5-14.5) Platelet Count 110 x10^3/uL (140-400) Neutrophils (%) (Auto) 69 % (31-73) Lymphocytes (%) (Auto) 16 % (24-48) Monocytes (%) (Auto) 13 % (0-9) Eosinophils (%) (Auto) 2 % (0-3) Basophils (%) (Auto) 1 % (0-3) Neutrophils # (Auto) 6.2 x10^3/uL (1.8-7.7) Lymphocytes # (Auto) 1.4 x10^3/uL (1.0-4.8) Monocytes # (Auto) 1.2 x10^3/uL (0.0-1.1) Eosinophils # (Auto) 0.2 x10^3/uL (0.0-0.7) Basophils # (Auto) 0.1 x10^3/uL (0.0-0.2) Urine Opiates Screen Neg (NEG) Urine Methadone Screen Neg (NEG) Urine Barbiturates Neg (NEG) Urine Phencyclidine Screen Neg (NEG) Urine Amphetamine/Methamphetamine Neg (NEG) Urine Benzodiazepines Screen Neg (NEG) Urine Cocaine Screen Pos (NEG) Urine Cannabinoids Screen Neg (NEG) Urine Ethyl Alcohol Neg (NEG) O2 Saturation 91 % (92-99) Arterial Blood pH 7.41 (7.35-7.45) Arterial Blood pCO2 at Patient Temp 37 mmHg (35-46) Arterial Blood pO2 at Patient Temp 58 mmHg (65-108) Arterial Blood HCO3 23 mmol/L (21-28) Arterial Blood Base Excess -1 mmol/L (-3-3) FiO2 40 Test 01/12/19 06:55 01/13/19 04:40 Troponin I Quantitative 0.049 ng/mL (0.000-0.055) Thyroid Stimulating Hormone (TSH) 0.269 uIU/mL (0.358-3.74) White Blood Count 10.2 x10^3/uL (4.0-11.0) Red Blood Count 4.38 x10^6/uL (4.30-5.70) Hemoglobin 14.5 g/dL (13.0-17.5) Hematocrit 42.7 % (39.0-53.0) Mean Corpuscular Volume 98 fL (79-100) Mean Corpuscular Hemoglobin 33 pg (25-35) Mean Corpuscular Hemoglobin Concent 34 g/dL (31-37) Red Cell Distribution Width 15.1 % (11.5-14.5) Platelet Count 109 x10^3/uL (140-400) Neutrophils (%) (Auto) 93 % (31-73) Lymphocytes (%) (Auto) 4 % (24-48) Monocytes (%) (Auto) 3 % (0-9) Eosinophils (%) (Auto) 0 % (0-3) Basophils (%) (Auto) 0 % (0-3) Neutrophils # (Auto) 9.5 x10^3/uL (1.8-7.7) Lymphocytes # (Auto) 0.4 x10^3/uL (1.0-4.8) Monocytes # (Auto) 0.3 x10^3/uL (0.0-1.1) Eosinophils # (Auto) 0.0 x10^3/uL (0.0-0.7) Basophils # (Auto) 0.0 x10^3/uL (0.0-0.2) Segmented Neutrophils % 89 % (35-66) Lymphocytes % 7 % (24-48) Monocytes % 4 % (0-10) Platelet Estimate Decreased (ADEQUATE) Sodium Level 140 mmol/L (136-145) Potassium Level 4.1 mmol/L (3.5-5.1) Chloride Level 107 mmol/L (98-107) Carbon Dioxide Level 26 mmol/L (21-32) Anion Gap 7 (6-14) Blood Urea Nitrogen 32 mg/dL (8-26) Creatinine 1.5 mg/dL (0.7-1.3) Estimated GFR (Cockcroft-Gault) 57.4 BUN/Creatinine Ratio 21 (6-20) Glucose Level 157 mg/dL (70-99) Calcium Level 9.2 mg/dL (8.5-10.1) Total Bilirubin 0.4 mg/dL (0.2-1.0) Aspartate Amino Transf (AST/SGOT) 9 U/L (15-37) Alanine Aminotransferase (ALT/SGPT) 10 U/L (16-63) Alkaline Phosphatase 71 U/L (46-116) Total Protein 6.6 g/dL (6.4-8.2) Albumin 2.8 g/dL (3.4-5.0) Albumin/Globulin Ratio 0.7 (1.0-1.7) Laboratory Tests Test 01/13/19 04:40 White Blood Count 10.2 x10^3/uL (4.0-11.0) Red Blood Count 4.38 x10^6/uL (4.30-5.70) Hemoglobin 14.5 g/dL (13.0-17.5) Hematocrit 42.7 % (39.0-53.0) Mean Corpuscular Volume 98 fL (79-100) Mean Corpuscular Hemoglobin 33 pg (25-35) Mean Corpuscular Hemoglobin Concent 34 g/dL (31-37) Red Cell Distribution Width 15.1 % (11.5-14.5) Platelet Count 109 x10^3/uL (140-400) Neutrophils (%) (Auto) 93 % (31-73) Lymphocytes (%) (Auto) 4 % (24-48) Monocytes (%) (Auto) 3 % (0-9) Eosinophils (%) (Auto) 0 % (0-3) Basophils (%) (Auto) 0 % (0-3) Neutrophils # (Auto) 9.5 x10^3/uL (1.8-7.7) Lymphocytes # (Auto) 0.4 x10^3/uL (1.0-4.8) Monocytes # (Auto) 0.3 x10^3/uL (0.0-1.1) Eosinophils # (Auto) 0.0 x10^3/uL (0.0-0.7) Basophils # (Auto) 0.0 x10^3/uL (0.0-0.2) Segmented Neutrophils % 89 % (35-66) Lymphocytes % 7 % (24-48) Monocytes % 4 % (0-10) Platelet Estimate Decreased (ADEQUATE) Sodium Level 140 mmol/L (136-145) Potassium Level 4.1 mmol/L (3.5-5.1) Chloride Level 107 mmol/L (98-107) Carbon Dioxide Level 26 mmol/L (21-32) Anion Gap 7 (6-14) Blood Urea Nitrogen 32 mg/dL (8-26) Creatinine 1.5 mg/dL (0.7-1.3) Estimated GFR (Cockcroft-Gault) 57.4 BUN/Creatinine Ratio 21 (6-20) Glucose Level 157 mg/dL (70-99) Calcium Level 9.2 mg/dL (8.5-10.1) Total Bilirubin 0.4 mg/dL (0.2-1.0) Aspartate Amino Transf (AST/SGOT) 9 U/L (15-37) Alanine Aminotransferase (ALT/SGPT) 10 U/L (16-63) Alkaline Phosphatase 71 U/L (46-116) Total Protein 6.6 g/dL (6.4-8.2) Albumin 2.8 g/dL (3.4-5.0) Albumin/Globulin Ratio 0.7 (1.0-1.7) Medications Active Scripts Medications Dose Route/Sig Max Daily Dose Days Date Category Dose Instructions Azithromycin Tablet (Azithromycin) 250 Mg Tablet 1 Pkg PO UD 10/14/16 Rx Advair 250-50 Diskus (Fluticasone/Salmeterol) 1 Each Disk.w.dev 1 Puff IH BID 10/13/16 Rx Ipratropium [place] 0.2 Mg/1 Ml Solution 1 Vial NEB QID PRN 10/13/16 Rx Doxycycline Hyclate 100 Mg Tablet 1 Tab PO BID 10/13/16 Rx NEXT DOSE DUE AT BEDTIME TONIGHT Medrol (Methylprednisolone) 4 Mg Tab.ds.pk 1 Pkg PO UD 10/13/16 Rx Albuterol Sulfate Neb Soln (Albuterol Sulfate) 0.63 Mg/3 Ml Vial.neb 0.63 Mg NEB PRN Q4HRS PRN 30 10/13/16 Rx NEEDED Zocor (Simvastatin) 20 Mg Tablet 20 Mg PO HS 10/27/14 Reported NEXT DOSE DUE TONIGHT AT BEDTIME Isosorbide Mononitrate Er (Isosorbide Mononitrate) 60 Mg Tab.er.24h 60 Mg PO DAILY 10/27/14 Reported NEXT DOSE DUE IN AM Lisinopril 40 Mg Tablet 40 Mg PO DAILY 04/03/14 Reported NEXT DOSE DUE IN AM Carvedilol 25 Mg Tablet 25 Mg PO BIDWMEALS 04/03/14 Reported NEXT DOSE DUE AT DINNER THIS EVENING Clonidine Hcl 0.1 Mg Tablet 0.1 Mg PO BID 04/03/14 Reported NEXT DOSE DUE AT BEDTIME TONIGHT Hydralazine Hcl 50 Mg Tablet 50 Mg PO TID 02/25/14 Reported NEXT DOSE DUE AT BEDTIME TONIGHT Amlodipine Besylate 10 Mg Tablet 10 Mg PO DAILY 06/13/13 Reported NEXT DOSE DUE IN AM Furosemide 40 Mg Tablet 40 Mg PO DAILY 06/13/13 Reported NEXT DOSE DUE IN AM Potassium Chloride 10 Meq Tab.er.prt 20 Meq PO DAILY 06/13/13 Reported NEXT DOSE DUE IN AM Comments CXR 01/13 MILD CHF/ RUL ATELECTASIS Impression . 1. Acute hypoxic respiratory failure secondary to multifactorial etiologies including combination of underlying chronic obstructive pulmonary disease, right upper lobe collapse. Cannot exclude the possibility of thromboembolic disease. Possible CHF today 2. Long history of tobacco use, suspect underlying chronic obstructive pulmonary disease. Along with cocaine, marijuana and alcohol abuse. 3. Abnormal CT chest with right upper lobe collapse. Likely postobstructive. Possibility of endobronchial lesion cannot be ruled out. Mucous plug would be another consideration. 4. Cardiomyopathy with an ejection fraction of 35% based on previous echocardiogram, repeat echocardiogram has been ordered. Likely related to cocaine abuse. Plan . 1. Continue with present current oxygen. 2. VQ scan today 3. Currently requiring high flow oxygen at 15 liters via Venturi mask. Will need to have improvement in oxygenation before bronchoscopy can be performed safely. 4. Follow Cardiology recommendation reg low EF 5. Monitor blood pressure closely. 6. bronchodilators. 7. Smoking cessation counseling provided. 8. Discussed with RN. Diuresis today 9. Monitor renal function/ hold IVF SHARON ROJAS MD Jan 13, 2019 11:02
--- NOTE | 2019-01-13 11:10 | PDOC ---
[employer] PROGRESS NOTE Chief Complaint Chief Complaint COPD exacerbation Possible lung mass Hypoxia Substance abuse History of Present Illness History of Present Illness 01/13/19 Pt was seen and examined in the ICU Receiving O2 via Ventimask EF = 35% with cardiomegaly Continues to be hypoxia Crackles heard on lung exam Cr was 1.[address] with contrast could not be performed V/Q scan for possible PE Vitals/I&O Vitals/I&O: Vital Signs Date Time Temp Pulse Resp B/P (MAP) Pulse Ox O2 Delivery O2 Flow Rate FiO2 01/13/19 09:38 58 154/95 01/13/19 07:31 93 Venturi Mask 15.0 01/13/19 06:00 15 01/13/19 03:08 97.9 97.9 I & O 01/12/19 01/12/19 01/13/19 14:59 22:59 06:59 Intake Total 730 ml 1590 ml 240 ml Output Total 400 ml 1150 ml 1000 ml Balance 330 ml 440 ml -760 ml Physical Exam Physical Exam: General: Alert, No acute distress Lungs: Crackles (bases) Cardiovascular: S1, S2 Abdomen: Soft, Non-tender Neuro Exam: Alert Extremities: No Edema General: Alert, Oriented X3, Cooperative, mild distress Heart: Regular rate (SR/SB), Normal S1, Normal S2, Other (2/6 systolic murmur to LLS border) Lungs: Crackles (bases) Abdomen: Soft, No tenderness Extremities: No cyanosis, Other (1+ bilateral LE pitting edema) Skin: No breakdown, No significant lesion Labs Labs: Laboratory Tests Test 01/13/19 04:40 White Blood Count 10.2 x10^3/uL (4.0-11.0) Red Blood Count 4.38 x10^6/uL (4.30-5.70) Hemoglobin 14.5 g/dL (13.0-17.5) Hematocrit 42.7 % (39.0-53.0) Mean Corpuscular Volume 98 fL (79-100) Mean Corpuscular Hemoglobin 33 pg (25-35) Mean Corpuscular Hemoglobin Concent 34 g/dL (31-37) Red Cell Distribution Width 15.1 % (11.5-14.5) Platelet Count 109 x10^3/uL (140-400) Neutrophils (%) (Auto) 93 % (31-73) Lymphocytes (%) (Auto) 4 % (24-48) Monocytes (%) (Auto) 3 % (0-9) Eosinophils (%) (Auto) 0 % (0-3) Basophils (%) (Auto) 0 % (0-3) Neutrophils # (Auto) 9.5 x10^3/uL (1.8-7.7) Lymphocytes # (Auto) 0.4 x10^3/uL (1.0-4.8) Monocytes # (Auto) 0.3 x10^3/uL (0.0-1.1) Eosinophils # (Auto) 0.0 x10^3/uL (0.0-0.7) Basophils # (Auto) 0.0 x10^3/uL (0.0-0.2) Segmented Neutrophils % 89 % (35-66) Lymphocytes % 7 % (24-48) Monocytes % 4 % (0-10) Platelet Estimate Decreased (ADEQUATE) Sodium Level 140 mmol/L (136-145) Potassium Level 4.1 mmol/L (3.5-5.1) Chloride Level 107 mmol/L (98-107) Carbon Dioxide Level 26 mmol/L (21-32) Anion Gap 7 (6-14) Blood Urea Nitrogen 32 mg/dL (8-26) Creatinine 1.5 mg/dL (0.7-1.3) Estimated GFR (Cockcroft-Gault) 57.4 BUN/Creatinine Ratio 21 (6-20) Glucose Level 157 mg/dL (70-99) Calcium Level 9.2 mg/dL (8.5-10.1) Total Bilirubin 0.4 mg/dL (0.2-1.0) Aspartate Amino Transf (AST/SGOT) 9 U/L (15-37) Alanine Aminotransferase (ALT/SGPT) 10 U/L (16-63) Alkaline Phosphatase 71 U/L (46-116) Total Protein 6.6 g/dL (6.4-8.2) Albumin 2.8 g/dL (3.4-5.0) Albumin/Globulin Ratio 0.7 (1.0-1.7) Review of Systems Review of Systems: No nausea, no vomiting No chest pain, no shortness of breath Assessment and Plan Assessmemt and Plan Problems Medical Problems: (1) COPD exacerbation Status: Acute (2) Left flank pain Status: Acute (3) Lung mass Status: Acute (4) Pneumonia Status: Acute (5) Substance abuse Status: Acute Assessment COPD exacerbation Lung mass Hypoxia Substance abuse Plan ICU monitoring Bronchoscopy next week after oxygenation improves Continue to consult with pulmonology DVT prophylaxis Substance use cessation O2 via Ventimask Full code Total time 31 min Comment Review of Relevant I have reviewed the following items rishi (where applicable) has been applied. Medications: Current Medications Medications (Trade) Dose Ordered Sig/Dex Route PRN Reason Start Time Stop Time Status Last Admin Dose Admin Sodium Chloride 1,000 ml @ 60 mls/hr [id number] IV 01/12/19 11:15 01/13/19 01:33 Vancomycin HCl (Vanco Per Pharmacy) 1 each PRN DAILY PRN MC SEE COMMENTS 01/12/19 12:30 01/12/19 12:50 Methylprednisolone Sodium Succinate (SOLU-Medrol 125MG VIAL) 62.5 mg Q6HRS IV 01/12/19 13:00 01/13/19 05:09 Hydralazine HCl (Apresoline) 25 mg TID PO 01/12/19 14:00 01/13/19 09:38 Isosorbide Mononitrate (Imdur) 30 mg DAILY PO 01/12/19 14:00 01/13/19 09:38 Vancomycin HCl 1 gm/Sodium Chloride 250 ml @ 250 mls/hr Q18H IV 01/13/19 02:00 01/13/19 01:33 Piperacillin Sod/ Tazobactam Sod 3.375 gm/Sodium Chloride 50 ml @ 100 mls/hr Q6HRS IV 01/12/19 14:00 01/13/19 05:09 Amlodipine Besylate (Norvasc) 10 mg DAILY PO 01/12/19 15:00 01/12/19 16:20 Clonidine HCl (Catapres) 0.1 mg BID PO 01/12/19 15:00 01/12/19 21:09 Furosemide (Lasix) 40 mg DAILY PO 01/12/19 15:00 01/13/19 09:37 Lisinopril (Prinivil) 40 mg DAILY PO 01/12/19 15:00 01/13/19 09:37 Potassium Chloride (Klor-Con) 20 meq DAILY PO 01/12/19 15:00 01/13/19 09:36 Simvastatin (Zocor) 20 mg HS PO 01/12/19 21:00 01/12/19 21:09 Lactobacillus Rhamnosus (Culturelle) 1 cap BID PO 01/12/19 21:00 01/13/19 09:37 Budesonide (Pulmicort) 0.5 mg RTBID NEB 01/12/19 15:00 01/13/19 07:31 Albuterol/ Ipratropium (Duoneb) 3 ml RTQID NEB 01/12/19 16:00 01/13/19 07:31 KINA CONTRERAS III DO Jan 13, 2019 11:10
[2019-01-13] MEDS ORDERED: FUROSEMIDE 20 MG/2 ML VIAL. IVP ONE ×2 (11:15→17:30)
--- NOTE | 2019-01-13 11:31 | RAD ---
Examination: LUNG VENT/PERFUSION SCAN(VQ) History: Possible mass, increased oxygen glands Comparison/Correlation: 01/13/2019 AP view of the chest Findings: 17 mCi xenon-133 gas was administered. Ventilation imaging was performed in anterior and posterior projections. Delayed washout of radiotracer compatible COPD noted. Nonsegmental defect involving the right upper lung field corresponds with atelectasis on chest x-ray examination. 5.5 mCi technetium 99m MAA was intravenously for perfusion imaging. Imaging was performed in 8 projections. Perfusion is unremarkable. Impression: Low probability for pulmonary embolism. COPD. Electronically signed by: Flex Donahue MD (01/13/2019 11:28 AM) [facility]
[2019-01-13] MEDS: ENOXAPARIN 40 MG/0.4 ML SYRINGE. SQ SCH (11:42)
[2019-01-13] MEDS: cloNIDine HCL 0.1 MG TABLET PO SCH ×2 (11:43→21:24)
[2019-01-13] MEDS: VANCOMYCIN PER PHARMACY MC PRN (14:55)
[2019-01-13] MEDS: amLODIPine BESYLATE 10 MG TABLET PO SCH (15:20)
--- NOTE | 2019-01-13 20:19 | PDOC ---
PROGRESS NOTES Subjective Subjective Feeling better today Objective Objective Vital Signs Date Time Temp Pulse Resp B/P (MAP) Pulse Ox O2 Delivery O2 Flow Rate FiO2 01/13/19 18:00 82 22 134/81 (98) 93 Nasal Cannula 6.0 01/13/19 17:00 98.2 98.2 Intake and Output 01/13/19 07:00 Intake Total 2560 ml Output Total 2550 ml Balance 10 ml Intake Oral 1510 ml IV Total 1050 ml Output Urine Total 2550 ml # Voids 1 Physical Exam Abdomen: Soft, No tenderness Heart: Regular rate (SR/SB), Other (2/6 systolic murmur to LLS border) Extremities: Other (1+ bilateral LE pitting edema) General: Alert, No acute distress HEENT: Atraumatic, Mucous membr. moist/pink Lungs: Other (diminished) Neuro: Normal speech Psych/Mental Status: Mood NL Assessment Assessment 1. Bradycardia: Mainly SB with episodes of Wenkebach with underlying high dose coreg. No significant pauses on tele. 2. Dyspnea: mainly due to RUL collapse with possible endobronchial mass. Pulm following 3. Substance abuse: UDS+cocaine 4. NICM: last EF 35%. Declined ICD in past 5. Chronic systolic CHF: well compensated 6. Chronic LBBB 7. HTN: controlled 8. CKD3 9. Hx of noncompliance 10. COPD with continued tobaccoism Plan Plan of Care Problems Medical Problems: (1) COPD exacerbation Status: Acute (2) Left flank pain Status: Acute (3) Lung mass Status: Acute (4) Pneumonia Status: Acute (5) Substance abuse Status: Acute Comment Review of Relevant I have reviewed the following items rishi (where applicable) has been applied. Labs Laboratory Tests Test 01/13/19 04:40 White Blood Count 10.2 x10^3/uL (4.0-11.0) Red Blood Count 4.38 x10^6/uL (4.30-5.70) Hemoglobin 14.5 g/dL (13.0-17.5) Hematocrit 42.7 % (39.0-53.0) Mean Corpuscular Volume 98 fL (79-100) Mean Corpuscular Hemoglobin 33 pg (25-35) Mean Corpuscular Hemoglobin Concent 34 g/dL (31-37) Red Cell Distribution Width 15.1 % (11.5-14.5) Platelet Count 109 x10^3/uL (140-400) Neutrophils (%) (Auto) 93 % (31-73) Lymphocytes (%) (Auto) 4 % (24-48) Monocytes (%) (Auto) 3 % (0-9) Eosinophils (%) (Auto) 0 % (0-3) Basophils (%) (Auto) 0 % (0-3) Neutrophils # (Auto) 9.5 x10^3/uL (1.8-7.7) Lymphocytes # (Auto) 0.4 x10^3/uL (1.0-4.8) Monocytes # (Auto) 0.3 x10^3/uL (0.0-1.1) Eosinophils # (Auto) 0.0 x10^3/uL (0.0-0.7) Basophils # (Auto) 0.0 x10^3/uL (0.0-0.2) Segmented Neutrophils % 89 % (35-66) Lymphocytes % 7 % (24-48) Monocytes % 4 % (0-10) Platelet Estimate Decreased (ADEQUATE) Sodium Level 140 mmol/L (136-145) Potassium Level 4.1 mmol/L (3.5-5.1) Chloride Level 107 mmol/L (98-107) Carbon Dioxide Level 26 mmol/L (21-32) Anion Gap 7 (6-14) Blood Urea Nitrogen 32 mg/dL (8-26) Creatinine 1.5 mg/dL (0.7-1.3) Estimated GFR (Cockcroft-Gault) 57.4 BUN/Creatinine Ratio 21 (6-20) Glucose Level 157 mg/dL (70-99) Calcium Level 9.2 mg/dL (8.5-10.1) Total Bilirubin 0.4 mg/dL (0.2-1.0) Aspartate Amino Transf (AST/SGOT) 9 U/L (15-37) Alanine Aminotransferase (ALT/SGPT) 10 U/L (16-63) Alkaline Phosphatase 71 U/L (46-116) Total Protein 6.6 g/dL (6.4-8.2) Albumin 2.8 g/dL (3.4-5.0) Albumin/Globulin Ratio 0.7 (1.0-1.7) Medications Current Medications Doxycycline Hyclate (Vibra-Tab) 100 mg BID PO ; Start 01/12/19 at 21:00; Status UNV Enoxaparin Sodium (Lovenox 40mg Syringe) 40 mg Q24H SQ Last administered on 01/13/19at 11:42; Start 01/13/19 at 11:00 Furosemide (Lasix) 20 mg 1X ONCE IVP Last administered on 01/13/19at 11:42; Start 01/13/19 at 11:15; Stop 01/13/19 at 11:16; Status DC Furosemide (Lasix) 20 mg 1X ONCE IVP Last administered on 01/13/19at 17:44; Start 01/13/19 at 17:30; Stop 01/13/19 at 17:32; Status DC Lactobacillus Rhamnosus (Culturelle) 1 cap BID PO Last administered on 01/13/19at 09:37; Start 01/12/19 at 21:00 Non-Formulary Medication (Fluticasone/ Salmeterol (Advair 250-50 Diskus)) 1 puff BID IH ; Start 01/12/19 at 21:00; Status UNV Simvastatin (Zocor) 20 mg HS PO Last administered on 01/12/19at 21:09; Start 01/12/19 at 21:00 Vancomycin HCl (Vancomycin Trough Level) 1 each 1X ONCE MC ; Start 01/14/19 at 13:30; Stop 01/14/19 at 13:31 Vancomycin HCl 1 gm/Sodium Chloride 250 ml @ 250 mls/hr Q18H IV Last administered on 01/13/19at 01:33; Start 01/13/19 at 02:00 Vitals/I & O Vital Sign - Last 24 Hours 01/12/19 01/12/19 01/12/19 01/12/19 21:09 21:09 21:21 22:01 Pulse 63 63 66 60 Resp 30 15 B/P (MAP) 133/79 133/79 133/79 (97) 119/75 (90) Pulse Ox 90 92 O2 Delivery Nasal Cannula Nasal Cannula O2 Flow Rate 6.0 6.0 01/12/19 01/12/19 01/13/19 01/13/19 23:39 23:43 00:15 02:10 Temp 97.8 97.8 Pulse 70 55 Resp 24 14 B/P (MAP) 104/71 (82) 144/84 (104) Pulse Ox 89 92 92 O2 Delivery Nasal Cannula Nasal Cannula Venturi Mask Venturi Mask O2 Flow Rate 6.0 6.0 15.0 15.0 01/13/19 01/13/19 01/13/19 01/13/19 03:08 03:59 04:10 05:27 Temp 97.9 97.9 Pulse 58 56 63 Resp 15 15 21 B/P (MAP) 122/73 (89) 113/62 (79) 110/59 (76) Pulse Ox 93 93 95 O2 Delivery Venturi Mask Venturi Mask Venturi Mask Venturi Mask O2 Flow Rate 15.0 15.0 15.0 15.0 01/13/19 01/13/19 01/13/19 01/13/19 06:00 07:00 07:31 08:00 Pulse 62 56 Resp 15 16 B/P (MAP) 119/60 (79) 119/60 (79) Pulse Ox 94 94 93 O2 Delivery Venturi Mask Venturi Mask Venturi Mask Venturi Mask O2 Flow Rate 15.0 15.0 15.0 15.0 01/13/19 01/13/19 01/13/19 01/13/19 08:00 09:00 09:37 09:38 Temp 98.3 98.3 Pulse 59 63 61 58 Resp 15 20 B/P (MAP) 152/91 (111) 154/95 (114) 154/95 154/95 Pulse Ox 95 95 O2 Delivery Venturi Mask Venturi Mask O2 Flow Rate 15.0 15.0 01/13/19 01/13/19 01/13/19 01/13/19 09:38 10:00 11:00 11:42 Pulse 58 64 67 Resp 20 19 B/P (MAP) 154/95 166/95 (118) 139/89 (106) Pulse Ox 96 97 94 O2 Delivery Nasal Cannula Nasal Cannula Nasal Cannula O2 Flow Rate 6.0 6.0 6.0 01/13/19 01/13/19 01/13/19 01/13/19 11:43 11:57 12:00 13:00 Temp 97.9 97.9 Pulse 66 72 71 Resp 16 25 B/P (MAP) 139/89 135/89 (104) 121/75 (90) Pulse Ox 99 95 O2 Delivery Nasal Cannula Nasal Cannula Nasal Cannula O2 Flow Rate 6.0 6.0 6.0 9/26/19 9/26/19 9/26/19 9/26/19 14:00 15:00 15:20 15:21 Pulse 72 66 74 73 Resp 21 22 B/P (MAP) 127/77 (94) 131/71 (91) 131/71 131/71 Pulse Ox 98 95 O2 Delivery Nasal Cannula Nasal Cannula O2 Flow Rate 6.0 6.0 01/13/19 01/13/19 01/13/19 01/13/19 16:00 16:00 16:04 17:00 Temp 98.2 98.2 Pulse 72 69 Resp 17 19 B/P (MAP) 124/68 (86) 124/67 (86) Pulse Ox 94 94 95 O2 Delivery Nasal Cannula Nasal Cannula Nasal Cannula Nasal Cannula O2 Flow Rate 6.0 6.0 6.0 6.0 01/13/19 18:00 Pulse 82 Resp 22 B/P (MAP) 134/81 (98) Pulse Ox 93 O2 Delivery Nasal Cannula O2 Flow Rate 6.0 Intake and Output 01/12/19 01/12/19 01/13/19 15:00 23:00 07:00 Intake Total 730 ml 1590 ml 240 ml Output Total 400 ml 1150 ml 1000 ml Balance 330 ml 440 ml -760 ml KENIA SHEPHERD MD Jan 13, 2019 20:19
[2019-01-13] MEDS: SIMVASTATIN 20 MG TABLET PO SCH (21:23)
[2019-01-14] VITALS (13 sets, daily range): BP systolic 127–168; BP diastolic 72–101
[2019-01-14] MEDS: methylPREDNISolone SOD SUCC PF 125 MG/2 ML VIAL. IV SCH ×3 (06:30→18:18)
[2019-01-14] MEDS: PIPERACILLIN/TAZOBACTAM 3.375 GM in IV NORMAL SALINE 50ML 50 ML IV SCH ×3 (06:30→19:16)
--- NOTE | 2019-01-14 07:54 | RAD ---
CHEST AP ONLY Clinical Indication: Congestion Comparison: 01/13/2019 AP view of the chest. Findings: Portable upright frontal view of the chest was obtained. Heart size is enlarged. Right upper lobe atelectasis along the minor fissure is again identified with decreased right upper lobe volume. There is no pneumothorax. No pleural effusion is appreciated. No acute bone abnormality. IMPRESSION: Right upper lobe atelectasis again seen. Mild decrease in right upper lobe volume in the interval. Electronically signed by: Flex Donahue MD (01/14/2019 7:51 AM) [facility]
[2019-01-14] MEDS: LACTOBACILLUS RHAMNOSUS GG 1 CAPSULE. PO SCH ×2 (08:39→21:01)
[2019-01-14] MEDS: cloNIDine HCL 0.1 MG TABLET PO SCH ×2 (08:39→21:01)
[2019-01-14] MEDS: LISINOPRIL 20 MG TABLET PO SCH (08:39)
[2019-01-14] MEDS: FUROSEMIDE 40 MG TABLET. PO SCH (08:40)
[2019-01-14] MEDS: amLODIPine BESYLATE 10 MG TABLET PO SCH (08:40)
[2019-01-14] MEDS: POTASSIUM CHLORIDE 10 MEQ TABLET.ER. PO SCH (08:40)
[2019-01-14] MEDS: ISOSORBIDE MONONITRATE ER 30 MG TAB.ER.24H PO SCH (08:40)
[2019-01-14] MEDS: hydrALAZINE 25 MG TABLET PO SCH ×3 (08:40→21:00)
[2019-01-14] MEDS: BUDESONIDE 0.5 MG/2 ML NEBU. NEB SCH ×2 (09:00→19:35)
[2019-01-14] MEDS: IPRATRPIUM/ALBUTEROL 0.5/2.5MG 3 ML NEBU. NEB SCH ×4 (09:00→19:35)
[2019-01-14] MEDS: VANCOMYCIN PER PHARMACY MC PRN ×2 (10:59→14:12)
--- NOTE | 2019-01-14 11:40 | PDOC ---
CARDIO Progress Notes Date and Time Date of Service 01/14/2019 Time of Evaluation 1120 Subjective Subjective: No Chest Pain, No Palpitations, Other (SOA at times) Vitals Vitals Vital Signs Date Time Temp Pulse Resp B/P (MAP) Pulse Ox O2 Delivery O2 Flow Rate FiO2 01/14/19 11:19 98.7 72 16 149/89 (109) 93 Nasal Cannula 6.0 98.7 Weight Weight [ ] Input and Output Intake and Output Intake and Output 01/14/19 07:00 Intake Total 2642 ml Output Total 4375 ml Balance -1733 ml Intake Oral 1950 ml IV Total 692 ml Output Urine Total 4375 ml # Bowel Movements 2 Physical Exam HEENT: Neck Supple W Full Motion Chest: Symmetric LUNGS: Other (diminished ) Heart: RRR (SR with intermittent PVCs) Abdomen: Soft N/T Extremities: No Calf Tenderness Neurology: alert, oriented, follow commands Assessment Assessment 1. Bradycardia: Mainly Wenkebach with underlying high dose coreg. None further 2. Dyspnea: mainly due to RUL collapse with possible endobronchial mass. 3. Substance abuse: UDS+cocaine 4. NICM: last EF 35% and now better at 40-45% 5. Chronic systolic CHF: compensated 6. Chronic LBBB 7. HTN: better 8. CKD3 9. Hx of noncompliance 10. COPD with continued tobaccoism 11. Moderate AI Recommendations 1. He has deferred AICD in the past. Restart BB with lower dose this time with toprol, for better PVC control. Monitor rhythm for any significant bradycardia 2. Continue on hydralazine and imdur 3. Bronch pending for next week per pulmonary 3. Smoking and cocaine cessation reinforced 5. Supportive care. LORRAINE VILLEGAS PROJECT ARCHITECT Jan 14, 2019 11:40
[2019-01-14] MEDS: ENOXAPARIN 40 MG/0.4 ML SYRINGE. SQ SCH (11:42)
--- NOTE | 2019-01-14 12:07 | PDOC ---
[employer] PROGRESS NOTE Chief Complaint Chief Complaint COPD exacerbation Possible lung mass Hypoxia Substance abuse History of Present Illness History of Present Illness 01/14/19 Pt was seen and examined in the ICU Pt was on the commode Receiving O2 via Ventimask Charts and labs reviewed EF = 35% with cardiomegaly Continues to be hypoxia Crackles heard on lung exam ABG pH is 7.41 D/w RN 01/13/19 Pt was seen and examined in the ICU Receiving O2 via Ventimask EF = 35% with cardiomegaly Continues to be hypoxia Crackles heard on lung exam Cr was 1.[address] with contrast could not be performed V/Q scan for possible PE Vitals/I&O Vitals/I&O: Vital Signs Date Time Temp Pulse Resp B/P (MAP) Pulse Ox O2 Delivery O2 Flow Rate FiO2 01/14/19 11:54 Nasal Cannula 6.0 01/14/19 11:19 98.7 72 16 149/89 (109) 93 98.7 I & O 01/13/19 01/13/19 01/14/19 15:00 23:00 07:00 Intake Total 992 ml 950 ml 700 ml Output Total 2050 ml 1225 ml 1100 ml Balance -1058 ml -275 ml -400 ml Physical Exam Physical Exam: General: Alert, No acute distress Lungs: Crackles (bases) Cardiovascular: S1, S2 Abdomen: Soft, Non-tender Neuro Exam: Alert Extremities: No Edema General: Alert, No acute distress Heart: Regular rate (SR/SB), Other (2/6 systolic murmur to LLS border) Lungs: Crackles (bases) Abdomen: Soft, No tenderness Extremities: Other (1+ bilateral LE pitting edema) Review of Systems Review of Systems: Unable to obtain labs due to Pt being on commode Assessment and Plan Assessmemt and Plan Problems Medical Problems: (1) Acute on chronic combined systolic and diastolic heart failure Status: Acute (2) Acute respiratory failure with hypoxia Status: Acute (3) Bradycardia Status: Acute (4) CKD (chronic kidney disease), stage III Status: Chronic (5) COPD exacerbation Status: Acute (6) Dyspnea Status: Acute (7) HTN (hypertension) Status: Chronic (8) LBBB (left bundle branch block) Status: Chronic (9) Left flank pain Status: Acute (10) Lung mass Status: Acute (11) NICM (nonischemic cardiomyopathy) Status: Chronic (12) Pneumonia Status: Acute (13) Substance abuse Status: Acute Assessment COPD exacerbation Lung mass Hypoxia Substance abuse Plan ICU monitoring Continue to consult with pulmonology Meds per pulmonology Bronchoscopy scheduled for next week DVT prophylaxis Substance use cessation O2 via Ventimask Full code Home meds PT/OT Comment Review of Relevant I have reviewed the following items rishi (where applicable) has been applied. Medications: Current Medications Medications (Trade) Dose Ordered Sig/Dex Route PRN Reason Start Time Stop Time Status Last Admin Dose Admin Furosemide (Lasix) 20 mg 1X ONCE IVP 01/13/19 17:30 01/13/19 17:32 DC 01/13/19 17:44 KINA CONTRERAS III DO Jan 14, 2019 12:07
--- NOTE | 2019-01-14 13:07 | PDOC ---
PULMONARY PROGRESS NOTES Subjective less soa on canula now Vitals Vital Signs Date Time Temp Pulse Resp B/P (MAP) Pulse Ox O2 Delivery O2 Flow Rate FiO2 01/14/19 11:54 Nasal Cannula 6.0 01/14/19 11:19 98.7 72 16 149/89 (109) 93 98.7 General: Alert, No acute distress Lungs: Crackles (bases) Cardiovascular: S1, S2 Abdomen: Soft, Non-tender Neuro Exam: Alert Extremities: No Edema Labs Laboratory Tests Test 01/13/19 04:40 White Blood Count 10.2 x10^3/uL (4.0-11.0) Red Blood Count 4.38 x10^6/uL (4.30-5.70) Hemoglobin 14.5 g/dL (13.0-17.5) Hematocrit 42.7 % (39.0-53.0) Mean Corpuscular Volume 98 fL (79-100) Mean Corpuscular Hemoglobin 33 pg (25-35) Mean Corpuscular Hemoglobin Concent 34 g/dL (31-37) Red Cell Distribution Width 15.1 % (11.5-14.5) Platelet Count 109 x10^3/uL (140-400) Neutrophils (%) (Auto) 93 % (31-73) Lymphocytes (%) (Auto) 4 % (24-48) Monocytes (%) (Auto) 3 % (0-9) Eosinophils (%) (Auto) 0 % (0-3) Basophils (%) (Auto) 0 % (0-3) Neutrophils # (Auto) 9.5 x10^3/uL (1.8-7.7) Lymphocytes # (Auto) 0.4 x10^3/uL (1.0-4.8) Monocytes # (Auto) 0.3 x10^3/uL (0.0-1.1) Eosinophils # (Auto) 0.0 x10^3/uL (0.0-0.7) Basophils # (Auto) 0.0 x10^3/uL (0.0-0.2) Segmented Neutrophils % 89 % (35-66) Lymphocytes % 7 % (24-48) Monocytes % 4 % (0-10) Platelet Estimate Decreased (ADEQUATE) Sodium Level 140 mmol/L (136-145) Potassium Level 4.1 mmol/L (3.5-5.1) Chloride Level 107 mmol/L (98-107) Carbon Dioxide Level 26 mmol/L (21-32) Anion Gap 7 (6-14) Blood Urea Nitrogen 32 mg/dL (8-26) Creatinine 1.5 mg/dL (0.7-1.3) Estimated GFR (Cockcroft-Gault) 57.4 BUN/Creatinine Ratio 21 (6-20) Glucose Level 157 mg/dL (70-99) Calcium Level 9.2 mg/dL (8.5-10.1) Total Bilirubin 0.4 mg/dL (0.2-1.0) Aspartate Amino Transf (AST/SGOT) 9 U/L (15-37) Alanine Aminotransferase (ALT/SGPT) 10 U/L (16-63) Alkaline Phosphatase 71 U/L (46-116) Total Protein 6.6 g/dL (6.4-8.2) Albumin 2.8 g/dL (3.4-5.0) Albumin/Globulin Ratio 0.7 (1.0-1.7) Medications Active Scripts Medications Dose Route/Sig Max Daily Dose Days Date Category Dose Instructions Azithromycin Tablet (Azithromycin) 250 Mg Tablet 1 Pkg PO UD 10/14/16 Rx Advair 250-50 Diskus (Fluticasone/Salmeterol) 1 Each Disk.w.dev 1 Puff IH BID 10/13/16 Rx Ipratropium Honor 0.2 Mg/1 Ml Solution 1 Vial NEB QID PRN 10/13/16 Rx Doxycycline Hyclate 100 Mg Tablet 1 Tab PO BID 10/13/16 Rx NEXT DOSE DUE AT BEDTIME TONIGHT Medrol (Methylprednisolone) 4 Mg Tab.ds.pk 1 Pkg PO UD 10/13/16 Rx Albuterol Sulfate Neb Soln (Albuterol Sulfate) 0.63 Mg/3 Ml Vial.neb 0.63 Mg NEB PRN Q4HRS PRN 30 10/13/16 Rx NEEDED Zocor (Simvastatin) 20 Mg Tablet 20 Mg PO HS 10/27/14 Reported NEXT DOSE DUE TONIGHT AT BEDTIME Isosorbide Mononitrate Er (Isosorbide Mononitrate) 60 Mg Tab.er.24h 60 Mg PO DAILY 10/27/14 Reported NEXT DOSE DUE IN AM Lisinopril 40 Mg Tablet 40 Mg PO DAILY 04/03/14 Reported NEXT DOSE DUE IN AM Carvedilol 25 Mg Tablet 25 Mg PO BIDWMEALS 04/03/14 Reported NEXT DOSE DUE AT DINNER THIS EVENING Clonidine Hcl 0.1 Mg Tablet 0.1 Mg PO BID 04/03/14 Reported NEXT DOSE DUE AT BEDTIME TONIGHT Hydralazine Hcl 50 Mg Tablet 50 Mg PO TID 02/25/14 Reported NEXT DOSE DUE AT BEDTIME TONIGHT Amlodipine Besylate 10 Mg Tablet 10 Mg PO DAILY 06/13/13 Reported NEXT DOSE DUE IN AM Furosemide 40 Mg Tablet 40 Mg PO DAILY 06/13/13 Reported NEXT DOSE DUE IN AM Potassium Chloride 10 Meq Tab.er.prt 20 Meq PO DAILY 06/13/13 Reported NEXT DOSE DUE IN AM Comments CXR 01/14 MILD CHF improved. / RUL ATELECTASIS Impression . 1. Acute hypoxic respiratory failure secondary to multifactorial etiologies including combination of underlying chronic obstructive pulmonary disease, right upper lobe collapse. No evidence of thromboembolic disease. Possible CHF 01/13 2. Long history of tobacco use, suspect underlying chronic obstructive pulmonary disease. Along with cocaine, marijuana and alcohol abuse. 3. Abnormal CT chest with right upper lobe collapse. Likely postobstructive. Possibility of endobronchial lesion cannot be ruled out. Mucous plug would be another consideration. 4. Cardiomyopathy with an ejection fraction of 35% based on previous echocardiogram, repeat echocardiogram has been ordered. Likely related to cocaine abuse. Plan . 1. Continue with present current oxygen. 2. VQ scan neg for PE 3. Currently requiring oxygen 4. Follow Cardiology recommendation reg low EF 5. Monitor blood pressure closely. 6. bronchodilators. 7. Smoking cessation counseling provided. 8. Discussed with RN. 9. will need Bronch for persistent RUL atelectasis . Bronch eduardo not available till thursday. will schedule thursday SHARON ROJAS MD Jan 14, 2019 13:07
[2019-01-14 13:50] LABS: VANC TR 11.2 mcg/mL (10.0-20.0)
--- NOTE | 2019-01-14 13:53 | CARD ---
MR#: [id number] Date of Study: 01/12/2019 Ordering Physician: LORRAINE VILLEGAS, Referring Physician: LORRAINE VILLEGAS, Tech: APPROVED REPORT EXAM: Two-dimensional and M-mode echocardiogram with Doppler and color Doppler. Other Information Technically limited study due to body habitus. INDICATION COPD Dyspnea Cardiomyopathy Congestive Heart Failure RISK FACTORS Hypertension 2D DIMENSIONS RVDd4.5 (2.9-3.5cm)Left Atrium(2D)4.3 (1.6-4.0cm) IVSd1.4 (0.7-1.1cm)Aortic Root(2D)4.3 (2.0-3.7cm) LVDd5.3 (3.9-5.9cm)LVOT Diameter2.2 (1.8-2.4cm) PWd1.4 (0.7-1.1cm)LVDs4.0 (2.5-4.0cm) FS (%) 36.9 %SV89.5 ml LVEF(%)66.3 (>50%) Aortic Valve AoV Peak Lorenzo.207.7cm/sAoV VTI31.3cm AO Peak GR.17.3mmHgLVOT VTI 25.24cm AO Mean GR.5mmHgAI P 1/2 [id number] Mitral Valve MV E Ylrtbqph80.5cm/sMV DECEL [id number] MV A Obiqdyom80.2cm/sE/A Ratio0.9 TDI Lateral E' P. V5.92cm/sMedial E' P. V5.47cm/s E/Lateral E'8.7E/Medial E'9.4 Pulmonary Vein S1 Rresaflb06.6cm/sS2 Kxrhkckm09.71cm/s D2 Xcqxmgzm00.7cm/sPVa [id number] LEFT VENTRICLE The left ventricle is normal size. There is moderate concentric left ventricular hypertrophy. The sys tolic function is mildly impaired. EF 40-45% There is global hypokinesis of the left ventricle. The s eptal motion is suggestive of conduction defect. Transmitral Doppler flow pattern is Grade I-abnormal relaxation pattern. RIGHT VENTRICLE The right ventricle is normal size. There is normal right ventricular wall thickness. The right ventr icular systolic function is normal. ATRIA The left atrium is mildly dilated. The right atrium is moderately dilated. The interatrial septum is intact with no evidence for an atrial septal defect or patent foramen ovale as noted on 2-D or Dopple r imaging. AORTIC VALVE The aortic valve is normal in structure and function. Doppler and Color Flow revealed moderate aortic regurgitation. There is no significant aortic valvular stenosis. MITRAL VALVE The mitral valve is normal in structure and function. There is no evidence of mitral valve prolapse. There is no mitral valve stenosis. Doppler and Color-flow revealed trace mitral regurgitation. TRICUSPID VALVE The tricuspid valve is normal in structure and function. Doppler and Color Flow revealed no tricuspid valve regurgitation noted. There is no tricuspid valve prolapse or vegetation. There is no tricuspid valve stenosis. PULMONIC VALVE The pulmonic valve is not well visualized. Doppler and Color Flow revealed no pulmonic valvular regur gitation. There is no pulmonic valvular stenosis. GREAT VESSELS The aortic root is mildly enlarged. The IVC is dilated and collapses >50% with inspiration. PERICARDIAL EFFUSION There is no evidence of significant pericardial effusion. Critical Notification Critical Value: No <Conclusion> The systolic function is mildly impaired. EF 40-45% There is global hypokinesis of the left ventricle. The septal motion is suggestive of conduction defe ct. Doppler and Color Flow revealed moderate aortic regurgitation. Signed by : Jarrod Abarca, Electronically Approved : 01/12/2019 11:40:44
[2019-01-14] MEDS: METOPROLOL SUCC 24HR ER 50 MG TAB.ER.24H. PO SCH (13:57)
--- NOTE | 2019-01-14 14:19 | NUR ---
Pharmacy Vancomycin Dosing Note S: Consulted to monitor and dose vancomycin started 01/12/19. O: NEIL EWING is a 63 year old M with Pneumonia. Other Antibiotics: ZOSYN 3.375G IV Q6HRS (01/12 -) LABS: Last BUN: 32 Last Creatinine: 1.5 Creatinine Clearance: 52 mL/min Last WBC: 10.2 Last Procalcitonin: - Tmax (past 24 hours): 98.7 Microbiology: NO CX PENDING I/O: 2592/4375 Drug Levels: Last Trough level: 11.2 on 01/14/19 at 1325 Last dose given 01/13/19 at 2123 Vancomycin Dosing: Dosing Weight: Actual Target Trough: 15-20 A: Based on: trough P: 1. Increase Vancomycin to 1250 mg IV q18h 2. Follow up Trough level to be ordered as needed 3. Pharmacy will continue to monitor, follow and adjust therapy as needed. Brisa Luo RPH, 01/14/19 1338
--- NOTE | 2019-01-14 16:20 | NUR ---
Patient transferred from ICU to room 203 at 1620. Pt A&OX4. VSS. 5L O2 NC placed on pt. No complaints of pain. Will continue to monitor.
[2019-01-14] MEDS: VANCOMYCIN 1.25 GM in IV NORMAL SALINE 250ML 250 ML IV SCH (16:55)
[2019-01-14] MEDS ORDERED: guaiFENesin DM 200MG/20MG 10 ML SYRUP PO PRN (18:45)
[2019-01-14] MEDS ORDERED: ACETAMINOPHEN 500 MG TABLET PO PRN (18:45)
[2019-01-14] MEDS ORDERED: ONDANSETRON PF 4 MG/2 ML VIAL. IVP PRN (18:45)
[2019-01-14] MEDS ORDERED: TEMAZEPAM 7.5 MG CAPSULE PO PRN (18:45)
[2019-01-14] MEDS: SIMVASTATIN 20 MG TABLET PO SCH (21:01)
[2019-01-15 03:09] VITALS: BP 156/92
[2019-01-15 05:25] LABS: BASO % 0 % (0-3); EOS % 0 % (0-3); HEMATOCRIT 43.7 % (39.0-53.0); HEMOGLOBIN 14.8 g/dL (13.0-17.5); LYMPH # 0.3 x10^3/uL (1.0-4.8); LYMPH % 3 % (24-48); MEAN CORPUSCULAR HEMOGLOBIN 33 pg (25-35); MEAN CORPUSCULAR HGB CONC 34 g/dL (31-37); MEAN CORPUSCULAR VOLUME 97 fL (79-100); MONO # 0.4 x10^3/uL (0.0-1.1); MONO % 4 % (0-9); NEUT # 9.6 x10^3/uL (1.8-7.7); NEUT % 93 % (31-73); PLATELET COUNT 125 x10^3/uL (140-400); RED BLOOD COUNT 4.49 x10^6/uL (4.30-5.70); RED CELL DISTRIBUTION WIDTH 15.3 % (11.5-14.5); WHITE BLOOD COUNT 10.3 x10^3/uL (4.0-11.0)
[2019-01-15 06:06] LABS: ALBUMIN 2.9 g/dL (3.4-5.0); ALBUMIN/GLOBULIN RATIO 0.8 (1.0-1.7); CALCIUM 9.4 mg/dL (8.5-10.1); CREATININE 1.4 mg/dL (0.7-1.3); GFR 62.1; POTASSIUM 3.5 mmol/L (3.5-5.1); TOTAL BILIRUBIN 0.3 mg/dL (0.2-1.0); TOTAL PROTEIN 6.7 g/dL (6.4-8.2)
[2019-01-15] MEDS: PIPERACILLIN/TAZOBACTAM 3.375 GM in IV NORMAL SALINE 50ML 50 ML IV SCH ×6 (06:27→23:27)
[2019-01-15] MEDS: methylPREDNISolone SOD SUCC PF 125 MG/2 ML VIAL. IV SCH ×5 (06:27→23:27)
--- NOTE | 2019-01-15 06:54 | PDOC ---
PULMONARY PROGRESS NOTES Subjective sob better, has occ cough, no pain Vitals Vital Signs Date Time Temp Pulse Resp B/P (MAP) Pulse Ox O2 Delivery O2 Flow Rate FiO2 01/15/19 03:09 98.3 62 18 156/92 (113) 93 Nasal Cannula 5.0 98.3 General: Alert, No acute distress Lungs: Crackles (bases) Cardiovascular: S1, S2 Abdomen: Soft, Non-tender Neuro Exam: Alert Extremities: No Edema Labs Laboratory Tests Test 01/14/19 13:25 01/15/19 04:00 Vancomycin Level Trough 11.2 mcg/mL (10.0-20.0) Vancomycin Last Dose Date 01/13/19 Vancomycin Last Dose Time 1999 White Blood Count 10.3 x10^3/uL (4.0-11.0) Red Blood Count 4.49 x10^6/uL (4.30-5.70) Hemoglobin 14.8 g/dL (13.0-17.5) Hematocrit 43.7 % (39.0-53.0) Mean Corpuscular Volume 97 fL (79-100) Mean Corpuscular Hemoglobin 33 pg (25-35) Mean Corpuscular Hemoglobin Concent 34 g/dL (31-37) Red Cell Distribution Width 15.3 % (11.5-14.5) Platelet Count 125 x10^3/uL (140-400) Neutrophils (%) (Auto) 93 % (31-73) Lymphocytes (%) (Auto) 3 % (24-48) Monocytes (%) (Auto) 4 % (0-9) Eosinophils (%) (Auto) 0 % (0-3) Basophils (%) (Auto) 0 % (0-3) Neutrophils # (Auto) 9.6 x10^3/uL (1.8-7.7) Lymphocytes # (Auto) 0.3 x10^3/uL (1.0-4.8) Monocytes # (Auto) 0.4 x10^3/uL (0.0-1.1) Eosinophils # (Auto) 0.0 x10^3/uL (0.0-0.7) Basophils # (Auto) 0.0 x10^3/uL (0.0-0.2) Sodium Level 142 mmol/L (136-145) Potassium Level 3.5 mmol/L (3.5-5.1) Chloride Level 105 mmol/L (98-107) Carbon Dioxide Level 30 mmol/L (21-32) Anion Gap 7 (6-14) Blood Urea Nitrogen 28 mg/dL (8-26) Creatinine 1.4 mg/dL (0.7-1.3) Estimated GFR (Cockcroft-Gault) 62.1 BUN/Creatinine Ratio 20 (6-20) Glucose Level 130 mg/dL (70-99) Calcium Level 9.4 mg/dL (8.5-10.1) Total Bilirubin 0.3 mg/dL (0.2-1.0) Aspartate Amino Transf (AST/SGOT) 14 U/L (15-37) Alanine Aminotransferase (ALT/SGPT) 13 U/L (16-63) Alkaline Phosphatase 69 U/L (46-116) Total Protein 6.7 g/dL (6.4-8.2) Albumin 2.9 g/dL (3.4-5.0) Albumin/Globulin Ratio 0.8 (1.0-1.7) Laboratory Tests Test 01/14/19 13:25 01/15/19 04:00 Vancomycin Level Trough 11.2 mcg/mL (10.0-20.0) Vancomycin Last Dose Date 01/13/19 Vancomycin Last Dose Time 1999 White Blood Count 10.3 x10^3/uL (4.0-11.0) Red Blood Count 4.49 x10^6/uL (4.30-5.70) Hemoglobin 14.8 g/dL (13.0-17.5) Hematocrit 43.7 % (39.0-53.0) Mean Corpuscular Volume 97 fL (79-100) Mean Corpuscular Hemoglobin 33 pg (25-35) Mean Corpuscular Hemoglobin Concent 34 g/dL (31-37) Red Cell Distribution Width 15.3 % (11.5-14.5) Platelet Count 125 x10^3/uL (140-400) Neutrophils (%) (Auto) 93 % (31-73) Lymphocytes (%) (Auto) 3 % (24-48) Monocytes (%) (Auto) 4 % (0-9) Eosinophils (%) (Auto) 0 % (0-3) Basophils (%) (Auto) 0 % (0-3) Neutrophils # (Auto) 9.6 x10^3/uL (1.8-7.7) Lymphocytes # (Auto) 0.3 x10^3/uL (1.0-4.8) Monocytes # (Auto) 0.4 x10^3/uL (0.0-1.1) Eosinophils # (Auto) 0.0 x10^3/uL (0.0-0.7) Basophils # (Auto) 0.0 x10^3/uL (0.0-0.2) Sodium Level 142 mmol/L (136-145) Potassium Level 3.5 mmol/L (3.5-5.1) Chloride Level 105 mmol/L (98-107) Carbon Dioxide Level 30 mmol/L (21-32) Anion Gap 7 (6-14) Blood Urea Nitrogen 28 mg/dL (8-26) Creatinine 1.4 mg/dL (0.7-1.3) Estimated GFR (Cockcroft-Gault) 62.1 BUN/Creatinine Ratio 20 (6-20) Glucose Level 130 mg/dL (70-99) Calcium Level 9.4 mg/dL (8.5-10.1) Total Bilirubin 0.3 mg/dL (0.2-1.0) Aspartate Amino Transf (AST/SGOT) 14 U/L (15-37) Alanine Aminotransferase (ALT/SGPT) 13 U/L (16-63) Alkaline Phosphatase 69 U/L (46-116) Total Protein 6.7 g/dL (6.4-8.2) Albumin 2.9 g/dL (3.4-5.0) Albumin/Globulin Ratio 0.8 (1.0-1.7) Medications Active Scripts Medications Dose Route/Sig Max Daily Dose Days Date Category Dose Instructions Azithromycin Tablet (Azithromycin) 250 Mg Tablet 1 Pkg PO UD 10/14/16 Rx Advair 250-50 Diskus (Fluticasone/Salmeterol) 1 Each Disk.w.dev 1 Puff IH BID 10/13/16 Rx Ipratropium [place] 0.2 Mg/1 Ml Solution 1 Vial NEB QID PRN 10/13/16 Rx Doxycycline Hyclate 100 Mg Tablet 1 Tab PO BID 10/13/16 Rx NEXT DOSE DUE AT BEDTIME TONIGHT Medrol (Methylprednisolone) 4 Mg Tab.ds.pk 1 Pkg PO UD 10/13/16 Rx Albuterol Sulfate Neb Soln (Albuterol Sulfate) 0.63 Mg/3 Ml Vial.neb 0.63 Mg NEB PRN Q4HRS PRN 30 10/13/16 Rx NEEDED Zocor (Simvastatin) 20 Mg Tablet 20 Mg PO HS 10/27/14 Reported NEXT DOSE DUE TONIGHT AT BEDTIME Isosorbide Mononitrate Er (Isosorbide Mononitrate) 60 Mg Tab.er.24h 60 Mg PO DAILY 10/27/14 Reported NEXT DOSE DUE IN AM Lisinopril 40 Mg Tablet 40 Mg PO DAILY 04/03/14 Reported NEXT DOSE DUE IN AM Carvedilol 25 Mg Tablet 25 Mg PO BIDWMEALS 04/03/14 Reported NEXT DOSE DUE AT DINNER THIS EVENING Clonidine Hcl 0.1 Mg Tablet 0.1 Mg PO BID 04/03/14 Reported NEXT DOSE DUE AT BEDTIME TONIGHT Hydralazine Hcl 50 Mg Tablet 50 Mg PO TID 02/25/14 Reported NEXT DOSE DUE AT BEDTIME TONIGHT Amlodipine Besylate 10 Mg Tablet 10 Mg PO DAILY 06/13/13 Reported NEXT DOSE DUE IN AM Furosemide 40 Mg Tablet 40 Mg PO DAILY 06/13/13 Reported NEXT DOSE DUE IN AM Potassium Chloride 10 Meq Tab.er.prt 20 Meq PO DAILY 06/13/13 Reported NEXT DOSE DUE IN AM Comments CXR 01/14 MILD CHF improved. / RUL ATELECTASIS echo The systolic function is mildly impaired. EF 40-45% There is global hypokinesis of the left ventricle. The septal motion is suggestive of conduction defect. Doppler and Color Flow revealed moderate aortic regurgitation. Impression . 1. Acute hypoxic respiratory failure secondary to multifactorial etiologies including combination of underlying chronic obstructive pulmonary disease, right upper lobe atelectasis. No evidence of thromboembolic disease. Possible CHF 01/13 2. Long history of tobacco use, suspect underlying chronic obstructive pulmonary disease. Along with cocaine, marijuana and alcohol abuse. 3. Abnormal CT chest with right upper lobe collapse. Likely postobstructive. Possibility of endobronchial lesion cannot be ruled out. Mucous plug would be another consideration. 4. Cardiomyopathy, mod AI Plan . 1. 02 titration 2. VQ scan neg for PE 3. Currently requiring oxygen 4. Follow Cardiology recommendation reg low EF and mod AI 5. Monitor blood pressure closely. 6. bronchodilators. 7. Smoking cessation counseling provided. 8. Discussed with RN. 9. will need Bronch for persistent RUL atelectasis . Bronch eduardo not available till thursday. will schedule thursday TERRI HERBERT MD Jan 15, 2019 06:54
[2019-01-15 07:00] VITALS: BP 176/108
[2019-01-15] MEDS: BUDESONIDE 0.5 MG/2 ML NEBU. NEB SCH ×2 (08:00→20:07)
[2019-01-15] MEDS: IPRATRPIUM/ALBUTEROL 0.5/2.5MG 3 ML NEBU. NEB SCH ×4 (08:00→20:07)
[2019-01-15] MEDS: ENOXAPARIN 40 MG/0.4 ML SYRINGE. SQ SCH (08:32)
[2019-01-15] MEDS: POTASSIUM CHLORIDE 10 MEQ TABLET.ER. PO SCH (08:32)
[2019-01-15] MEDS: VANCOMYCIN 1.25 GM in IV NORMAL SALINE 250ML 250 ML IV SCH (08:32)
[2019-01-15] MEDS: METOPROLOL SUCC 24HR ER 50 MG TAB.ER.24H. PO SCH (08:33)
[2019-01-15] MEDS: ISOSORBIDE MONONITRATE ER 30 MG TAB.ER.24H PO SCH (08:33)
[2019-01-15] MEDS: FUROSEMIDE 40 MG TABLET. PO SCH (08:33)
[2019-01-15] MEDS: hydrALAZINE 25 MG TABLET PO SCH ×3 (08:33→20:51)
[2019-01-15] MEDS: LISINOPRIL 20 MG TABLET PO SCH (08:34)
[2019-01-15] MEDS: amLODIPine BESYLATE 10 MG TABLET PO SCH (08:34)
[2019-01-15] MEDS: LACTOBACILLUS RHAMNOSUS GG 1 CAPSULE. PO SCH ×2 (08:34→20:51)
[2019-01-15] MEDS: cloNIDine HCL 0.1 MG TABLET PO SCH ×2 (08:35→20:52)
[2019-01-15 10:49] VITALS: BP 133/74
--- NOTE | 2019-01-15 11:19 | PDOC ---
[facility] PROGRESS NOTE Chief Complaint Chief Complaint COPD exacerbation Possible lung mass Hypoxia Substance abuse History of Present Illness History of Present Illness 01/15/19 Pt seen and examined Pt has been feeling better and getting more sleep on the floor. He is glad to be out of the ICU and is breathing better. Pt recieving O2 via nasal cannula He still has some wheezing and a cough Ejection fraction 35% Appetite has improved Scheduled bronch for Thursday DW RN 01/14/19 Pt was seen and examined in the ICU Pt was on the commode Receiving O2 via Ventimask Charts and labs reviewed EF = 35% with cardiomegaly Continues to be hypoxia Crackles heard on lung exam ABG pH is 7.41 D/w RN 01/13/19 Pt was seen and examined in the ICU Receiving O2 via Ventimask EF = 35% with cardiomegaly Continues to be hypoxia Crackles heard on lung exam Cr was 1.[address] with contrast could not be performed V/Q scan for possible PE Vitals/I&O Vitals/I&O: Vital Signs Date Time Temp Pulse Resp B/P (MAP) Pulse Ox O2 Delivery O2 Flow Rate FiO2 01/15/19 10:49 98.2 64 18 133/74 (93) 94 Nasal Cannula 5.0 98.2 I & O 01/14/19 01/14/19 01/15/19 15:00 23:00 07:00 Intake Total 600 ml 50 ml Output Total 300 ml Balance 600 ml -250 ml Physical Exam Physical Exam: General: Alert, No acute distress Lungs: Crackles (bases) Cardiovascular: S1, S2 Abdomen: Soft, Non-tender Neuro Exam: Alert Extremities: No Edema General: Alert, No acute distress Heart: Regular rate (SR/SB), Other (2/6 systolic murmur to LLS border) Lungs: Crackles (bases) Abdomen: Soft, No tenderness Extremities: Other (1+ bilateral LE pitting edema) Labs Labs: Laboratory Tests Test 01/14/19 13:25 01/15/19 04:00 Vancomycin Level Trough 11.2 mcg/mL (10.0-20.0) Vancomycin Last Dose Date 01/13/19 Vancomycin Last Dose Time 1999 White Blood Count 10.3 x10^3/uL (4.0-11.0) Red Blood Count 4.49 x10^6/uL (4.30-5.70) Hemoglobin 14.8 g/dL (13.0-17.5) Hematocrit 43.7 % (39.0-53.0) Mean Corpuscular Volume 97 fL (79-100) Mean Corpuscular Hemoglobin 33 pg (25-35) Mean Corpuscular Hemoglobin Concent 34 g/dL (31-37) Red Cell Distribution Width 15.3 % (11.5-14.5) Platelet Count 125 x10^3/uL (140-400) Neutrophils (%) (Auto) 93 % (31-73) Lymphocytes (%) (Auto) 3 % (24-48) Monocytes (%) (Auto) 4 % (0-9) Eosinophils (%) (Auto) 0 % (0-3) Basophils (%) (Auto) 0 % (0-3) Neutrophils # (Auto) 9.6 x10^3/uL (1.8-7.7) Lymphocytes # (Auto) 0.3 x10^3/uL (1.0-4.8) Monocytes # (Auto) 0.4 x10^3/uL (0.0-1.1) Eosinophils # (Auto) 0.0 x10^3/uL (0.0-0.7) Basophils # (Auto) 0.0 x10^3/uL (0.0-0.2) Sodium Level 142 mmol/L (136-145) Potassium Level 3.5 mmol/L (3.5-5.1) Chloride Level 105 mmol/L (98-107) Carbon Dioxide Level 30 mmol/L (21-32) Anion Gap 7 (6-14) Blood Urea Nitrogen 28 mg/dL (8-26) Creatinine 1.4 mg/dL (0.7-1.3) Estimated GFR (Cockcroft-Gault) 62.1 BUN/Creatinine Ratio 20 (6-20) Glucose Level 130 mg/dL (70-99) Calcium Level 9.4 mg/dL (8.5-10.1) Total Bilirubin 0.3 mg/dL (0.2-1.0) Aspartate Amino Transf (AST/SGOT) 14 U/L (15-37) Alanine Aminotransferase (ALT/SGPT) 13 U/L (16-63) Alkaline Phosphatase 69 U/L (46-116) Total Protein 6.7 g/dL (6.4-8.2) Albumin 2.9 g/dL (3.4-5.0) Albumin/Globulin Ratio 0.8 (1.0-1.7) Review of Systems Review of Systems: Denies pain Denies n/v/d Assessment and Plan Assessmemt and Plan Problems Medical Problems: (1) Acute on chronic combined systolic and diastolic heart failure Status: Acute (2) Acute respiratory failure with hypoxia Status: Acute (3) Bradycardia Status: Acute (4) CKD (chronic kidney disease), stage III Status: Chronic (5) COPD exacerbation Status: Acute (6) Dyspnea Status: Acute (7) HTN (hypertension) Status: Chronic (8) LBBB (left bundle branch block) Status: Chronic (9) Left flank pain Status: Acute (10) Lung mass Status: Acute (11) NICM (nonischemic cardiomyopathy) Status: Chronic (12) Pneumonia Status: Acute (13) Substance abuse Status: Acute Assessment COPD exacerbation Lung mass Hypoxia Substance abuse Plan Home meds Continue breathing treatments Continue to consult with pulmonology Bronchoscopy scheduled for Thursday DVT prophylaxis Substance use cessation O2 via nasal cannula Full code PT/OT Comment Review of Relevant I have reviewed the following items rishi (where applicable) has been applied. Medications: Current Medications Medications (Trade) Dose Ordered Sig/Dex Route PRN Reason Start Time Stop Time Status Last Admin Dose Admin Vancomycin HCl (Vancomycin Trough Level) 1 each 1X ONCE MC 01/14/19 13:30 01/14/19 13:31 DC 01/14/19 13:30 Metoprolol Succinate (Toprol Xl) 50 mg DAILY PO 01/14/19 12:00 01/15/19 08:33 Vancomycin HCl 1.25 gm/Sodium Chloride 250 ml @ 167 mls/hr Q18H IV 01/14/19 15:00 01/15/19 08:32 KINA CONTRERAS K III DO Jan 15, 2019 11:19
--- NOTE | 2019-01-15 12:41 | PDOC ---
PROGRESS NOTES Subjective Subjective Patient seen and examined Objective Objective Vital Signs Date Time Temp Pulse Resp B/P (MAP) Pulse Ox O2 Delivery O2 Flow Rate FiO2 01/15/19 12:29 96 Nasal Cannula 5.0 01/15/19 12:26 61 136/80 01/15/19 10:49 98.2 18 98.2 Intake and Output 01/15/19 07:00 Intake Total 650 ml Output Total 300 ml Balance 350 ml Intake Oral 650 ml Output Urine Total 300 ml # Voids 6 # Bowel Movements 2 Physical Exam Abdomen: Normal bowel sounds Heart: Regular rate General: mild distress Lungs: Other (decreased breath sounds) Assessment Assessment Problems Medical Problems: (1) Acute on chronic combined systolic and diastolic heart failure Status: Acute (2) Acute respiratory failure with hypoxia Status: Acute (3) Bradycardia Status: Acute (4) CKD (chronic kidney disease), stage III Status: Chronic (5) COPD exacerbation Status: Acute (6) Dyspnea Status: Acute (7) HTN (hypertension) Status: Chronic (8) LBBB (left bundle branch block) Status: Chronic (9) Left flank pain Status: Acute (10) Lung mass Status: Acute (11) NICM (nonischemic cardiomyopathy) Status: Chronic (12) Pneumonia Status: Acute (13) Substance abuse Status: Acute Bradycardia. Coreg held. Rhythm improved. Dyspnea. Right upper lobe collapse with possible mass. As per the pulmonary service. Substance abuse. Possible cocaine on UDS. Nonischemic cardiomyopathy. Has improved from 35% to 40-45%. Continuing on medical treatment as above. Improved hypertension. Chronic kidney disease. Monitoring lab. History of noncompliance. Comment Review of Relevant I have reviewed the following items rishi (where applicable) has been applied. Labs Laboratory Tests Test 01/14/19 13:25 01/15/19 04:00 Vancomycin Level Trough 11.2 mcg/mL (10.0-20.0) Vancomycin Last Dose Date 01/13/19 Vancomycin Last Dose Time 1999 White Blood Count 10.3 x10^3/uL (4.0-11.0) Red Blood Count 4.49 x10^6/uL (4.30-5.70) Hemoglobin 14.8 g/dL (13.0-17.5) Hematocrit 43.7 % (39.0-53.0) Mean Corpuscular Volume 97 fL (79-100) Mean Corpuscular Hemoglobin 33 pg (25-35) Mean Corpuscular Hemoglobin Concent 34 g/dL (31-37) Red Cell Distribution Width 15.3 % (11.5-14.5) Platelet Count 125 x10^3/uL (140-400) Neutrophils (%) (Auto) 93 % (31-73) Lymphocytes (%) (Auto) 3 % (24-48) Monocytes (%) (Auto) 4 % (0-9) Eosinophils (%) (Auto) 0 % (0-3) Basophils (%) (Auto) 0 % (0-3) Neutrophils # (Auto) 9.6 x10^3/uL (1.8-7.7) Lymphocytes # (Auto) 0.3 x10^3/uL (1.0-4.8) Monocytes # (Auto) 0.4 x10^3/uL (0.0-1.1) Eosinophils # (Auto) 0.0 x10^3/uL (0.0-0.7) Basophils # (Auto) 0.0 x10^3/uL (0.0-0.2) Sodium Level 142 mmol/L (136-145) Potassium Level 3.5 mmol/L (3.5-5.1) Chloride Level 105 mmol/L (98-107) Carbon Dioxide Level 30 mmol/L (21-32) Anion Gap 7 (6-14) Blood Urea Nitrogen 28 mg/dL (8-26) Creatinine 1.4 mg/dL (0.7-1.3) Estimated GFR (Cockcroft-Gault) 62.1 BUN/Creatinine Ratio 20 (6-20) Glucose Level 130 mg/dL (70-99) Calcium Level 9.4 mg/dL (8.5-10.1) Total Bilirubin 0.3 mg/dL (0.2-1.0) Aspartate Amino Transf (AST/SGOT) 14 U/L (15-37) Alanine Aminotransferase (ALT/SGPT) 13 U/L (16-63) Alkaline Phosphatase 69 U/L (46-116) Total Protein 6.7 g/dL (6.4-8.2) Albumin 2.9 g/dL (3.4-5.0) Albumin/Globulin Ratio 0.8 (1.0-1.7) Laboratory Tests Test 01/14/19 13:25 01/15/19 04:00 Vancomycin Level Trough 11.2 mcg/mL (10.0-20.0) Vancomycin Last Dose Date 01/13/19 Vancomycin Last Dose Time 1999 White Blood Count 10.3 x10^3/uL (4.0-11.0) Red Blood Count 4.49 x10^6/uL (4.30-5.70) Hemoglobin 14.8 g/dL (13.0-17.5) Hematocrit 43.7 % (39.0-53.0) Mean Corpuscular Volume 97 fL (79-100) Mean Corpuscular Hemoglobin 33 pg (25-35) Mean Corpuscular Hemoglobin Concent 34 g/dL (31-37) Red Cell Distribution Width 15.3 % (11.5-14.5) Platelet Count 125 x10^3/uL (140-400) Neutrophils (%) (Auto) 93 % (31-73) Lymphocytes (%) (Auto) 3 % (24-48) Monocytes (%) (Auto) 4 % (0-9) Eosinophils (%) (Auto) 0 % (0-3) Basophils (%) (Auto) 0 % (0-3) Neutrophils # (Auto) 9.6 x10^3/uL (1.8-7.7) Lymphocytes # (Auto) 0.3 x10^3/uL (1.0-4.8) Monocytes # (Auto) 0.4 x10^3/uL (0.0-1.1) Eosinophils # (Auto) 0.0 x10^3/uL (0.0-0.7) Basophils # (Auto) 0.0 x10^3/uL (0.0-0.2) Sodium Level 142 mmol/L (136-145) Potassium Level 3.5 mmol/L (3.5-5.1) Chloride Level 105 mmol/L (98-107) Carbon Dioxide Level 30 mmol/L (21-32) Anion Gap 7 (6-14) Blood Urea Nitrogen 28 mg/dL (8-26) Creatinine 1.4 mg/dL (0.7-1.3) Estimated GFR (Cockcroft-Gault) 62.1 BUN/Creatinine Ratio 20 (6-20) Glucose Level 130 mg/dL (70-99) Calcium Level 9.4 mg/dL (8.5-10.1) Total Bilirubin 0.3 mg/dL (0.2-1.0) Aspartate Amino Transf (AST/SGOT) 14 U/L (15-37) Alanine Aminotransferase (ALT/SGPT) 13 U/L (16-63) Alkaline Phosphatase 69 U/L (46-116) Total Protein 6.7 g/dL (6.4-8.2) Albumin 2.9 g/dL (3.4-5.0) Albumin/Globulin Ratio 0.8 (1.0-1.7) Medications Current Medications Albuterol/ Ipratropium (Duoneb) 3 ml 1X ONCE NEB Last administered on 01/12/19at 04:17; Start 01/12/19 at 04:15; Stop 01/12/19 at 04:16; Status DC Methylprednisolone Sodium Succinate (SOLU-Medrol 125MG VIAL) 125 mg 1X ONCE IV Last administered on 01/12/19at 04:51; Start 01/12/19 at 04:15; Stop 01/12/19 at 04:16; Status DC Iohexol (Omnipaque 300 Mg/ml) 75 ml 1X ONCE IV ; Start 01/12/19 at 05:15; Stop 01/12/19 at 05:16; Status DC Info (CONTRAST GIVEN -- Rx MONITORING) 1 each PRN DAILY PRN MC SEE COMMENTS; Start 01/12/19 at 05:15; Stop 01/14/19 at 05:14; Status DC Piperacillin Sod/ Tazobactam Sod 4.5 gm/Sodium Chloride 100 ml @ 200 mls/hr 1X ONCE IV Last administered on 01/12/19at 06:04; Start 01/12/19 at 06:00; Stop 01/12/19 at 06:29; Status DC Vancomycin HCl 1.75 gm/Sodium Chloride 500 ml @ 250 mls/hr 1X ONCE IV Last administered on 01/12/19at 08:04; Start 01/12/19 at 06:00; Stop 01/12/19 at 07:59; Status DC Ondansetron HCl (Zofran) 4 mg PRN Q8HRS PRN IV NAUSEA/VOMITING; Start 01/12/19 at 05:45; Stop 01/13/19 at 05:44; Status DC Albuterol/ Ipratropium (Duoneb) 3 ml RTQID NEB Last administered on 01/12/19at 20:08; Start 01/12/19 at 08:00; Stop 01/13/19 at 07:59; Status DC Influenza Virus Vaccine Quadrival (Afluria Quad 2019-20 (3yr Up) Syringe) 0.5 ml ONCE ONCE VAX IM Last administered on 01/12/19at 16:26; Start 01/12/19 at 08:00; Stop 01/12/19 at 08:05; Status DC Sodium Chloride 1,000 ml @ 60 mls/hr [id number] IV Last administered on 01/13/19at 01:33; Start 01/12/19 at 11:15; Stop 01/13/19 at 17:31; Status DC Piperacillin Sod/ Tazobactam Sod (Zosyn Per Pharmacy) 1 each PRN DAILY PRN MC SEE COMMENTS; Start 01/12/19 at 12:30 Vancomycin HCl (Vanco Per Pharmacy) 1 each PRN DAILY PRN MC SEE COMMENTS Last administered on 01/14/19at 14:12; Start 01/12/19 at 12:30 Methylprednisolone Sodium Succinate (SOLU-Medrol 125MG VIAL) 62.5 mg Q6HRS IV Last administered on 01/15/19at 12:26; Start 01/12/19 at 13:00 Hydralazine HCl (Apresoline) 25 mg TID PO Last administered on 01/15/19at 12:26; Start 01/12/19 at 14:00 Isosorbide Mononitrate (Imdur) 30 mg DAILY PO Last administered on 01/15/19at 08:33; Start 01/12/19 at 14:00 Hydralazine HCl (Apresoline Inj) 10 mg PRN Q4HRS PRN IVP ELEVATED BP, SEE COMMENTS; Start 01/12/19 at 12:45 Vancomycin HCl 1 gm/Sodium Chloride 250 ml @ 250 mls/hr Q18H IV Last administered on 01/13/19at 21:23; Start 01/13/19 at 02:00; Stop 01/14/19 at 14:18; Status DC Vancomycin HCl (Vancomycin Trough Level) 1 each 1X ONCE MC Last administered on 01/14/19at 13:30; Start 01/14/19 at 13:30; Stop 01/14/19 at 13:31; Status DC Piperacillin Sod/ Tazobactam Sod 3.375 gm/Sodium Chloride 50 ml @ 100 mls/hr Q6HRS IV Last administered on 01/15/19at 12:25; Start 01/12/19 at 14:00 Amlodipine Besylate (Norvasc) 10 mg DAILY PO Last administered on 01/15/19at 08:34; Start 01/12/19 at 15:00 Clonidine HCl (Catapres) 0.1 mg BID PO Last administered on 01/15/19at 08:35; Start 01/12/19 at 15:00 Doxycycline Hyclate (Vibra-Tab) 100 mg BID PO ; Start 01/12/19 at 21:00; Status UNV Furosemide (Lasix) 40 mg DAILY PO Last administered on 01/15/19at 08:33; Start 01/12/19 at 15:00 Hydralazine HCl (Apresoline) 50 mg TID PO ; Start 01/12/19 at 15:00; Stop 01/12/19 at 15:31; Status DC Lisinopril (Prinivil) 40 mg DAILY PO Last administered on 01/15/19at 08:34; Start 01/12/19 at 15:00 Potassium Chloride (Klor-Con) 20 meq DAILY PO Last administered on 01/15/19at 08:32; Start 01/12/19 at 15:00 Simvastatin (Zocor) 20 mg HS PO Last administered on 01/14/19at 21:01; Start 01/12/19 at 21:00 Non-Formulary Medication (Albuterol Sulfate (Albuterol Sulfate Neb Soln)) 0.63 mg PRN Q4HRS PRN NEB SHORTNESS OF BREATH; Start 01/12/19 at 13:45; Status UNV Carvedilol (Coreg) 25 mg BIDWMEALS PO ; Start 01/12/19 at 17:00; Stop 01/12/19 at 15:19; Status DC Non-Formulary Medication (Fluticasone/ Salmeterol (Advair 250-50 Diskus)) 1 puff BID IH ; Start 01/12/19 at 21:00; Status UNV Isosorbide Mononitrate (Imdur) 60 mg DAILY PO ; Start 01/12/19 at 15:00; Stop 01/12/19 at 15:31; Status DC Non-Formulary Medication (Methylprednisolone (Medrol)) 1 pkg UD PO ; Start 01/12/19 at 13:45; Stop 01/12/19 at 13:41; Status DC Lactobacillus Rhamnosus (Culturelle) 1 cap BID PO Last administered on 01/15/19at 08:34; Start 01/12/19 at 21:00 Albuterol Sulfate (Ventolin Neb Soln) 2.5 mg PRN Q4HRS PRN NEB SHORTNESS OF BREATH; Start 01/12/19 at 13:45 Budesonide (Pulmicort) 0.5 mg RTBID NEB Last administered on 01/14/19at 19:35; Start 01/12/19 at 15:00 Albuterol/ Ipratropium (Duoneb) 3 ml RTQID NEB Last administered on 01/15/19at 12:28; Start 01/12/19 at 16:00 Enoxaparin Sodium (Lovenox 40mg Syringe) 40 mg Q24H SQ Last administered on 01/15/19at 08:32; Start 01/13/19 at 11:00 Furosemide (Lasix) 20 mg 1X ONCE IVP Last administered on 01/13/19at 11:42; Start 01/13/19 at 11:15; Stop 01/13/19 at 11:16; Status DC Furosemide (Lasix) 20 mg 1X ONCE IVP Last administered on 01/13/19at 17:44; Start 01/13/19 at 17:30; Stop 01/13/19 at 17:32; Status DC Metoprolol Succinate (Toprol Xl) 50 mg DAILY PO Last administered on 01/15/19at 08:33; Start 01/14/19 at 12:00 Vancomycin HCl 1.25 gm/Sodium Chloride 250 ml @ 167 mls/hr Q18H IV Last administered on 01/15/19at 08:32; Start 01/14/19 at 15:00 Temazepam (Restoril) 7.5 mg PRN QHS PRN PO INSOMNIA; Start 01/14/19 at 18:45 Guaifenesin (Robitussin Dm) 10 ml PRN Q6HRS PRN PO COUGH; Start 01/14/19 at 18:45 Acetaminophen (Tylenol) 500 mg PRN Q6HRS PRN PO MILD PAIN / TEMP; Start 01/14/19 at 18:45 Ondansetron HCl (Zofran) 4 mg PRN Q6HRS PRN IVP NAUSEA/VOMITING; Start 01/14/19 at 18:45 Active Scripts Active Azithromycin Tablet (Azithromycin) 250 Mg Tablet 1 Pkg PO UD Advair 250-50 Diskus (Fluticasone/Salmeterol) 1 Each Disk.w.dev 1 Puff IH BID Ipratropium [place] 0.2 Mg/1 Ml Solution 1 Vial NEB QID PRN Doxycycline Hyclate 100 Mg Tablet 1 Tab PO BID NEXT DOSE DUE AT BEDTIME TONIGHT Medrol (Methylprednisolone) 4 Mg Tab.ds.pk 1 Pkg PO UD Albuterol Sulfate Neb Soln (Albuterol Sulfate) 0.63 Mg/3 Ml Vial.neb 0.63 Mg NEB PRN Q4HRS PRN 30 Days NEEDED Reported Zocor (Simvastatin) 20 Mg Tablet 20 Mg PO HS NEXT DOSE DUE TONIGHT AT BEDTIME Isosorbide Mononitrate Er (Isosorbide Mononitrate) 60 Mg Tab.er.24h 60 Mg PO DAILY NEXT DOSE DUE IN AM Lisinopril 40 Mg Tablet 40 Mg PO DAILY NEXT DOSE DUE IN AM Carvedilol 25 Mg Tablet 25 Mg PO BIDWMEALS NEXT DOSE DUE AT DINNER THIS EVENING Clonidine Hcl 0.1 Mg Tablet 0.1 Mg PO BID NEXT DOSE DUE AT BEDTIME TONIGHT Hydralazine Hcl 50 Mg Tablet 50 Mg PO TID NEXT DOSE DUE AT BEDTIME TONIGHT Amlodipine Besylate 10 Mg Tablet 10 Mg PO DAILY NEXT DOSE DUE IN AM Furosemide 40 Mg Tablet 40 Mg PO DAILY NEXT DOSE DUE IN AM Potassium Chloride 10 Meq Tab.er.prt 20 Meq PO DAILY NEXT DOSE DUE IN AM Vitals/I & O Vital Sign - Last 24 Hours 01/14/19 01/14/19 01/14/19 01/14/19 13:00 13:57 16:25 16:30 Temp 98.7 98.0 98.7 98.0 Pulse 72 72 65 Resp 18 20 B/P (MAP) 136/75 (95) 136/75 155/85 (108) Pulse Ox 93 91 O2 Delivery Nasal Cannula Nasal Cannula Nasal Cannula O2 Flow Rate 6.0 5.0 5.0 01/14/19 01/14/19 01/14/19 01/14/19 16:54 16:56 19:00 19:42 Temp 98.2 98.2 Pulse 68 63 Resp 24 B/P (MAP) 155/89 127/72 (90) Pulse Ox 96 93 96 O2 Delivery Nasal Cannula Nasal Cannula Nasal Cannula O2 Flow Rate 5.0 6.0 5.0 01/14/19 01/14/19 01/14/19 01/14/19 20:13 21:00 21:01 23:00 Temp 98.2 98.2 Pulse 67 67 67 Resp 20 B/P (MAP) 127/72 127/72 156/85 (108) Pulse Ox 92 O2 Delivery Nasal Cannula Nasal Cannula O2 Flow Rate 5.0 6.0 01/15/19 01/15/19 01/15/19 01/15/19 03:09 07:00 07:52 08:33 Temp 98.3 98.3 98.3 98.3 Pulse 62 66 76 Resp 18 18 B/P (MAP) 156/92 (113) 176/108 (130) 176/108 Pulse Ox 93 93 O2 Delivery Nasal Cannula Nasal Cannula Nasal Cannula O2 Flow Rate 5.0 5.0 5.0 01/15/19 01/15/19 01/15/19 01/15/19 08:33 08:33 08:34 08:34 Pulse 76 78 76 76 B/P (MAP) 176/108 176/108 176/108 176/108 01/15/19 01/15/19 01/15/19 01/15/19 08:35 10:49 12:26 12:29 Temp 98.2 98.2 Pulse 76 64 61 Resp 18 B/P (MAP) 176/108 133/74 (93) 136/80 Pulse Ox 94 96 O2 Delivery Nasal Cannula Nasal Cannula O2 Flow Rate 5.0 5.0 Intake and Output 01/14/19 01/14/19 01/15/19 15:00 23:00 07:00 Intake Total 600 ml 50 ml Output Total 300 ml Balance 600 ml -250 ml CLAUDE LAUREANO MD Jan 15, 2019 12:41
[2019-01-15] MEDS: VANCOMYCIN PER PHARMACY MC PRN (13:09)
[2019-01-15 15:00] VITALS: BP 143/71
[2019-01-15 19:00] VITALS: BP 156/83
[2019-01-15] MEDS: SIMVASTATIN 20 MG TABLET PO SCH (20:51)
[2019-01-15 23:00] VITALS: BP 150/91
[2019-01-16 03:00] VITALS: BP 162/92
[2019-01-16] MEDS: VANCOMYCIN 1.25 GM in IV NORMAL SALINE 250ML 250 ML IV SCH ×2 (03:27→20:33)
[2019-01-16 04:59] LABS: BASO % 0 % (0-3); EOS % 0 % (0-3); HEMATOCRIT 44.1 % (39.0-53.0); HEMOGLOBIN 14.9 g/dL (13.0-17.5); LYMPH # 0.3 x10^3/uL (1.0-4.8); LYMPH % 3 % (24-48); MEAN CORPUSCULAR HEMOGLOBIN 33 pg (25-35); MEAN CORPUSCULAR HGB CONC 34 g/dL (31-37); MEAN CORPUSCULAR VOLUME 97 fL (79-100); MONO # 0.4 x10^3/uL (0.0-1.1); MONO % 5 % (0-9); NEUT # 7.9 x10^3/uL (1.8-7.7); NEUT % 92 % (31-73); PLATELET COUNT 131 x10^3/uL (140-400); RED BLOOD COUNT 4.54 x10^6/uL (4.30-5.70); RED CELL DISTRIBUTION WIDTH 14.7 % (11.5-14.5); WHITE BLOOD COUNT 8.6 x10^3/uL (4.0-11.0)
[2019-01-16 05:24] LABS: ALBUMIN 2.7 g/dL (3.4-5.0); ALBUMIN/GLOBULIN RATIO 0.7 (1.0-1.7); CREATININE 1.5 mg/dL (0.7-1.3); GFR 57.4; POTASSIUM 3.5 mmol/L (3.5-5.1); TOTAL BILIRUBIN 0.2 mg/dL (0.2-1.0); TOTAL PROTEIN 6.4 g/dL (6.4-8.2)
[2019-01-16] MEDS: methylPREDNISolone SOD SUCC PF 125 MG/2 ML VIAL. IV SCH ×3 (05:55→17:17)
[2019-01-16] MEDS: PIPERACILLIN/TAZOBACTAM 3.375 GM in IV NORMAL SALINE 50ML 50 ML IV SCH ×3 (05:55→17:18)
[2019-01-16 07:00] VITALS: BP 150/90
--- NOTE | 2019-01-16 07:07 | PDOC ---
PULMONARY PROGRESS NOTES Subjective sob better, has occ cough, no sputum, no pain Vitals Vital Signs Date Time Temp Pulse Resp B/P (MAP) Pulse Ox O2 Delivery O2 Flow Rate FiO2 01/16/19 03:00 98.1 75 20 162/92 (115) 90 Nasal Cannula 5.0 98.1 General: Alert, No acute distress Lungs: Crackles (bases) Cardiovascular: S1, S2 Abdomen: Soft, Non-tender Neuro Exam: Alert Extremities: No Edema Labs Laboratory Tests Test 01/14/19 13:25 01/15/19 04:00 01/16/19 04:00 Vancomycin Level Trough 11.2 mcg/mL (10.0-20.0) Vancomycin Last Dose Date 01/13/19 Vancomycin Last Dose Time 1999 White Blood Count 10.3 x10^3/uL (4.0-11.0) 8.6 x10^3/uL (4.0-11.0) Red Blood Count 4.49 x10^6/uL (4.30-5.70) 4.54 x10^6/uL (4.30-5.70) Hemoglobin 14.8 g/dL (13.0-17.5) 14.9 g/dL (13.0-17.5) Hematocrit 43.7 % (39.0-53.0) 44.1 % (39.0-53.0) Mean Corpuscular Volume 97 fL (79-100) 97 fL (79-100) Mean Corpuscular Hemoglobin 33 pg (25-35) 33 pg (25-35) Mean Corpuscular Hemoglobin Concent 34 g/dL (31-37) 34 g/dL (31-37) Red Cell Distribution Width 15.3 % (11.5-14.5) 14.7 % (11.5-14.5) Platelet Count 125 x10^3/uL (140-400) 131 x10^3/uL (140-400) Neutrophils (%) (Auto) 93 % (31-73) 92 % (31-73) Lymphocytes (%) (Auto) 3 % (24-48) 3 % (24-48) Monocytes (%) (Auto) 4 % (0-9) 5 % (0-9) Eosinophils (%) (Auto) 0 % (0-3) 0 % (0-3) Basophils (%) (Auto) 0 % (0-3) 0 % (0-3) Neutrophils # (Auto) 9.6 x10^3/uL (1.8-7.7) 7.9 x10^3/uL (1.8-7.7) Lymphocytes # (Auto) 0.3 x10^3/uL (1.0-4.8) 0.3 x10^3/uL (1.0-4.8) Monocytes # (Auto) 0.4 x10^3/uL (0.0-1.1) 0.4 x10^3/uL (0.0-1.1) Eosinophils # (Auto) 0.0 x10^3/uL (0.0-0.7) 0.0 x10^3/uL (0.0-0.7) Basophils # (Auto) 0.0 x10^3/uL (0.0-0.2) 0.0 x10^3/uL (0.0-0.2) Sodium Level 142 mmol/L (136-145) 143 mmol/L (136-145) Potassium Level 3.5 mmol/L (3.5-5.1) 3.5 mmol/L (3.5-5.1) Chloride Level 105 mmol/L (98-107) 105 mmol/L (98-107) Carbon Dioxide Level 30 mmol/L (21-32) 33 mmol/L (21-32) Anion Gap 7 (6-14) 5 (6-14) Blood Urea Nitrogen 28 mg/dL (8-26) 31 mg/dL (8-26) Creatinine 1.4 mg/dL (0.7-1.3) 1.5 mg/dL (0.7-1.3) Estimated GFR (Cockcroft-Gault) 62.1 57.4 BUN/Creatinine Ratio 20 (6-20) 21 (6-20) Glucose Level 130 mg/dL (70-99) 151 mg/dL (70-99) Calcium Level 9.4 mg/dL (8.5-10.1) 9.0 mg/dL (8.5-10.1) Total Bilirubin 0.3 mg/dL (0.2-1.0) 0.2 mg/dL (0.2-1.0) Aspartate Amino Transf (AST/SGOT) 14 U/L (15-37) 12 U/L (15-37) Alanine Aminotransferase (ALT/SGPT) 13 U/L (16-63) 13 U/L (16-63) Alkaline Phosphatase 69 U/L (46-116) 59 U/L (46-116) Total Protein 6.7 g/dL (6.4-8.2) 6.4 g/dL (6.4-8.2) Albumin 2.9 g/dL (3.4-5.0) 2.7 g/dL (3.4-5.0) Albumin/Globulin Ratio 0.8 (1.0-1.7) 0.7 (1.0-1.7) Laboratory Tests Test 01/16/19 04:00 White Blood Count 8.6 x10^3/uL (4.0-11.0) Red Blood Count 4.54 x10^6/uL (4.30-5.70) Hemoglobin 14.9 g/dL (13.0-17.5) Hematocrit 44.1 % (39.0-53.0) Mean Corpuscular Volume 97 fL (79-100) Mean Corpuscular Hemoglobin 33 pg (25-35) Mean Corpuscular Hemoglobin Concent 34 g/dL (31-37) Red Cell Distribution Width 14.7 % (11.5-14.5) Platelet Count 131 x10^3/uL (140-400) Neutrophils (%) (Auto) 92 % (31-73) Lymphocytes (%) (Auto) 3 % (24-48) Monocytes (%) (Auto) 5 % (0-9) Eosinophils (%) (Auto) 0 % (0-3) Basophils (%) (Auto) 0 % (0-3) Neutrophils # (Auto) 7.9 x10^3/uL (1.8-7.7) Lymphocytes # (Auto) 0.3 x10^3/uL (1.0-4.8) Monocytes # (Auto) 0.4 x10^3/uL (0.0-1.1) Eosinophils # (Auto) 0.0 x10^3/uL (0.0-0.7) Basophils # (Auto) 0.0 x10^3/uL (0.0-0.2) Sodium Level 143 mmol/L (136-145) Potassium Level 3.5 mmol/L (3.5-5.1) Chloride Level 105 mmol/L (98-107) Carbon Dioxide Level 33 mmol/L (21-32) Anion Gap 5 (6-14) Blood Urea Nitrogen 31 mg/dL (8-26) Creatinine 1.5 mg/dL (0.7-1.3) Estimated GFR (Cockcroft-Gault) 57.4 BUN/Creatinine Ratio 21 (6-20) Glucose Level 151 mg/dL (70-99) Calcium Level 9.0 mg/dL (8.5-10.1) Total Bilirubin 0.2 mg/dL (0.2-1.0) Aspartate Amino Transf (AST/SGOT) 12 U/L (15-37) Alanine Aminotransferase (ALT/SGPT) 13 U/L (16-63) Alkaline Phosphatase 59 U/L (46-116) Total Protein 6.4 g/dL (6.4-8.2) Albumin 2.7 g/dL (3.4-5.0) Albumin/Globulin Ratio 0.7 (1.0-1.7) Medications Active Scripts Medications Dose Route/Sig Max Daily Dose Days Date Category Dose Instructions Azithromycin Tablet (Azithromycin) 250 Mg Tablet 1 Pkg PO UD 10/14/16 Rx Advair 250-50 Diskus (Fluticasone/Salmeterol) 1 Each Disk.w.dev 1 Puff IH BID 10/13/16 Rx Ipratropium [place] 0.2 Mg/1 Ml Solution 1 Vial NEB QID PRN 10/13/16 Rx Doxycycline Hyclate 100 Mg Tablet 1 Tab PO BID 10/13/16 Rx NEXT DOSE DUE AT BEDTIME TONIGHT Medrol (Methylprednisolone) 4 Mg Tab.ds.pk 1 Pkg PO UD 10/13/16 Rx Albuterol Sulfate Neb Soln (Albuterol Sulfate) 0.63 Mg/3 Ml Vial.neb 0.63 Mg NEB PRN Q4HRS PRN 30 10/13/16 Rx NEEDED Zocor (Simvastatin) 20 Mg Tablet 20 Mg PO HS 10/27/14 Reported NEXT DOSE DUE TONIGHT AT BEDTIME Isosorbide Mononitrate Er (Isosorbide Mononitrate) 60 Mg Tab.er.24h 60 Mg PO DAILY 10/27/14 Reported NEXT DOSE DUE IN AM Lisinopril 40 Mg Tablet 40 Mg PO DAILY 04/03/14 Reported NEXT DOSE DUE IN AM Carvedilol 25 Mg Tablet 25 Mg PO BIDWMEALS 04/03/14 Reported NEXT DOSE DUE AT DINNER THIS EVENING Clonidine Hcl 0.1 Mg Tablet 0.1 Mg PO BID 04/03/14 Reported NEXT DOSE DUE AT BEDTIME TONIGHT Hydralazine Hcl 50 Mg Tablet 50 Mg PO TID 02/25/14 Reported NEXT DOSE DUE AT BEDTIME TONIGHT Amlodipine Besylate 10 Mg Tablet 10 Mg PO DAILY 06/13/13 Reported NEXT DOSE DUE IN AM Furosemide 40 Mg Tablet 40 Mg PO DAILY 06/13/13 Reported NEXT DOSE DUE IN AM Potassium Chloride 10 Meq Tab.er.prt 20 Meq PO DAILY 06/13/13 Reported NEXT DOSE DUE IN AM Comments CXR 01/14 MILD CHF improved. / RUL ATELECTASIS echo The systolic function is mildly impaired. EF 40-45% There is global hypokinesis of the left ventricle. The septal motion is suggestive of conduction defect. Doppler and Color Flow revealed moderate aortic regurgitation. Impression . 1. Acute hypoxic respiratory failure secondary to multifactorial etiologies including combination of underlying chronic obstructive pulmonary disease, right upper lobe atelectasis. No evidence of thromboembolic disease. Possible CHF 01/13 2. Long history of tobacco use, suspect underlying chronic obstructive pulmonary disease. Along with cocaine, marijuana and alcohol abuse. 3. Abnormal CT chest with right upper lobe collapse. Likely postobstructive. Possibility of endobronchial lesion cannot be ruled out. Mucous plug would be another consideration. 4. Cardiomyopathy, mod AI Plan . 1. 02 titration 2. VQ scan neg for PE 3. cxr in am 4. Follow Cardiology recommendation reg low EF and mod AI 5. Monitor blood pressure closely. 6. bronchodilators. 7. Smoking cessation counseling provided. 8. Discussed with RN and pt. 9. will need Bronch for persistent RUL atelectasis . Bronch tech not available till Thursday. will schedule Thursday TERRI HERBERT MD Jan 16, 2019 07:07
[2019-01-16] MEDS: ENOXAPARIN 40 MG/0.4 ML SYRINGE. SQ SCH (07:53)
[2019-01-16] MEDS: ISOSORBIDE MONONITRATE ER 30 MG TAB.ER.24H PO SCH (07:53)
[2019-01-16] MEDS: POTASSIUM CHLORIDE 10 MEQ TABLET.ER. PO SCH (07:53)
[2019-01-16] MEDS: cloNIDine HCL 0.1 MG TABLET PO SCH ×2 (07:54→20:32)
[2019-01-16] MEDS: hydrALAZINE 25 MG TABLET PO SCH ×3 (07:54→20:32)
[2019-01-16] MEDS: FUROSEMIDE 40 MG TABLET. PO SCH (07:55)
[2019-01-16] MEDS: LISINOPRIL 20 MG TABLET PO SCH (07:55)
[2019-01-16] MEDS: amLODIPine BESYLATE 10 MG TABLET PO SCH (07:55)
[2019-01-16] MEDS: LACTOBACILLUS RHAMNOSUS GG 1 CAPSULE. PO SCH ×2 (07:55→20:30)
[2019-01-16] MEDS: METOPROLOL SUCC 24HR ER 50 MG TAB.ER.24H. PO SCH (07:56)
[2019-01-16] MEDS: IPRATRPIUM/ALBUTEROL 0.5/2.5MG 3 ML NEBU. NEB SCH ×4 (08:24→19:27)
[2019-01-16] MEDS: BUDESONIDE 0.5 MG/2 ML NEBU. NEB SCH ×2 (08:24→19:27)
[2019-01-16] MEDS: VANCOMYCIN PER PHARMACY MC PRN (09:14)
[2019-01-16 11:31] VITALS: BP 133/76
--- NOTE | 2019-01-16 12:04 | PDOC ---
[facility] PROGRESS NOTE Chief Complaint Chief Complaint COPD exacerbation Possible lung mass Hypoxia Substance abuse History of Present Illness History of Present Illness 01/16/19 Pt seen and examined at bedside Out of ICU, in better condition EF = 40-45% Bronchoscopy scheduled for Thursday Right sided atelectasis based on pulmonary progress note Charts and labs reviewed 01/15/19 Pt seen and examined Pt has been feeling better and getting more sleep on the floor. He is glad to be out of the ICU and is breathing better. Pt recieving O2 via nasal cannula He still has some wheezing and a cough Ejection fraction 35% Appetite has improved Scheduled bronch for Thursday DW RN 01/14/19 Pt was seen and examined in the ICU Pt was on the commode Receiving O2 via Ventimask Charts and labs reviewed EF = 35% with cardiomegaly Continues to be hypoxia Crackles heard on lung exam ABG pH is 7.41 D/w RN 01/13/19 Pt was seen and examined in the ICU Receiving O2 via Ventimask EF = 35% with cardiomegaly Continues to be hypoxia Crackles heard on lung exam Cr was 1.[address] with contrast could not be performed V/Q scan for possible PE Vitals/I&O Vitals/I&O: Vital Signs Date Time Temp Pulse Resp B/P (MAP) Pulse Ox O2 Delivery O2 Flow Rate FiO2 01/16/19 11:31 98.2 74 20 133/76 (95) 92 Nasal Cannula 5.0 98.2 I & O 01/15/19 01/15/19 01/16/19 15:00 23:00 07:00 Intake Total 280 ml 280 ml 120 ml Output Total 425 ml 750 ml Balance -145 ml -470 ml 120 ml Physical Exam Physical Exam: General: Alert, No acute distress Lungs: Crackles (bases) Cardiovascular: S1, S2 Abdomen: Soft, Non-tender Neuro Exam: Alert Extremities: No Edema General: mild distress Heart: Regular rate Lungs: Crackles (bases) Abdomen: Normal bowel sounds Extremities: Other (1+ bilateral LE pitting edema) Labs Labs: Laboratory Tests Test 01/16/19 04:00 White Blood Count 8.6 x10^3/uL (4.0-11.0) Red Blood Count 4.54 x10^6/uL (4.30-5.70) Hemoglobin 14.9 g/dL (13.0-17.5) Hematocrit 44.1 % (39.0-53.0) Mean Corpuscular Volume 97 fL (79-100) Mean Corpuscular Hemoglobin 33 pg (25-35) Mean Corpuscular Hemoglobin Concent 34 g/dL (31-37) Red Cell Distribution Width 14.7 % (11.5-14.5) Platelet Count 131 x10^3/uL (140-400) Neutrophils (%) (Auto) 92 % (31-73) Lymphocytes (%) (Auto) 3 % (24-48) Monocytes (%) (Auto) 5 % (0-9) Eosinophils (%) (Auto) 0 % (0-3) Basophils (%) (Auto) 0 % (0-3) Neutrophils # (Auto) 7.9 x10^3/uL (1.8-7.7) Lymphocytes # (Auto) 0.3 x10^3/uL (1.0-4.8) Monocytes # (Auto) 0.4 x10^3/uL (0.0-1.1) Eosinophils # (Auto) 0.0 x10^3/uL (0.0-0.7) Basophils # (Auto) 0.0 x10^3/uL (0.0-0.2) Sodium Level 143 mmol/L (136-145) Potassium Level 3.5 mmol/L (3.5-5.1) Chloride Level 105 mmol/L (98-107) Carbon Dioxide Level 33 mmol/L (21-32) Anion Gap 5 (6-14) Blood Urea Nitrogen 31 mg/dL (8-26) Creatinine 1.5 mg/dL (0.7-1.3) Estimated GFR (Cockcroft-Gault) 57.4 BUN/Creatinine Ratio 21 (6-20) Glucose Level 151 mg/dL (70-99) Calcium Level 9.0 mg/dL (8.5-10.1) Total Bilirubin 0.2 mg/dL (0.2-1.0) Aspartate Amino Transf (AST/SGOT) 12 U/L (15-37) Alanine Aminotransferase (ALT/SGPT) 13 U/L (16-63) Alkaline Phosphatase 59 U/L (46-116) Total Protein 6.4 g/dL (6.4-8.2) Albumin 2.7 g/dL (3.4-5.0) Albumin/Globulin Ratio 0.7 (1.0-1.7) Review of Systems Review of Systems: No nausea, no vomiting No chest pain, no palpitations Assessment and Plan Assessmemt and Plan Problems Medical Problems: (1) Acute on chronic combined systolic and diastolic heart failure Status: Acute (2) Acute respiratory failure with hypoxia Status: Acute (3) Bradycardia Status: Acute (4) CKD (chronic kidney disease), stage III Status: Chronic (5) COPD exacerbation Status: Acute (6) Dyspnea Status: Acute (7) HTN (hypertension) Status: Chronic (8) LBBB (left bundle branch block) Status: Chronic (9) Left flank pain Status: Acute (10) Lung mass Status: Acute (11) NICM (nonischemic cardiomyopathy) Status: Chronic (12) Pneumonia Status: Acute (13) Substance abuse Status: Acute Assessement COPD Substance abuse Lung mass Right sided atelectasis Plan Bronchodilators Steroids Awaiting bronchoscopy results IV antibiotics Continue O2 by nasal cannula Full code Comment Review of Relevant I have reviewed the following items rishi (where applicable) has been applied. KINA CONTRERAS III DO Jan 16, 2019 12:04
--- NOTE | 2019-01-16 13:51 | PDOC ---
PROGRESS NOTES Subjective Subjective Patient seen and examined The patient looks and feels better today. Objective Objective Vital Signs Date Time Temp Pulse Resp B/P (MAP) Pulse Ox O2 Delivery O2 Flow Rate FiO2 01/16/19 12:41 95 Nasal Cannula 5.0 01/16/19 11:31 98.2 74 20 133/76 (95) 98.2 Intake and Output 01/16/19 07:00 Intake Total 680 ml Output Total 1175 ml Balance -495 ml Intake Oral 680 ml Output Urine Total 1175 ml # Voids 2 Physical Exam Abdomen: Normal bowel sounds Heart: Regular rate General: mild distress Lungs: Other (decreased breath sounds) Assessment Assessment Problems Medical Problems: (1) Acute on chronic combined systolic and diastolic heart failure Status: Acute (2) Acute respiratory failure with hypoxia Status: Acute (3) Bradycardia Status: Acute (4) CKD (chronic kidney disease), stage III Status: Chronic (5) COPD exacerbation Status: Acute (6) Dyspnea Status: Acute (7) HTN (hypertension) Status: Chronic (8) LBBB (left bundle branch block) Status: Chronic (9) Left flank pain Status: Acute (10) Lung mass Status: Acute (11) NICM (nonischemic cardiomyopathy) Status: Chronic (12) Pneumonia Status: Acute (13) Substance abuse Status: Acute Bradycardia. Coreg held. Rhythm improved. Dyspnea. Right upper lobe collapse with possible mass. Bronchoscope on Thursday. Substance abuse. Possible cocaine on UDS. Nonischemic cardiomyopathy. Has improved from 35% to 40-45%. Continuing on medical treatment as above. Improved hypertension. Chronic kidney disease. Monitoring lab. History of noncompliance. Comment Review of Relevant I have reviewed the following items rishi (where applicable) has been applied. Labs Laboratory Tests Test 01/15/19 04:00 01/16/19 04:00 White Blood Count 10.3 x10^3/uL (4.0-11.0) 8.6 x10^3/uL (4.0-11.0) Red Blood Count 4.49 x10^6/uL (4.30-5.70) 4.54 x10^6/uL (4.30-5.70) Hemoglobin 14.8 g/dL (13.0-17.5) 14.9 g/dL (13.0-17.5) Hematocrit 43.7 % (39.0-53.0) 44.1 % (39.0-53.0) Mean Corpuscular Volume 97 fL (79-100) 97 fL (79-100) Mean Corpuscular Hemoglobin 33 pg (25-35) 33 pg (25-35) Mean Corpuscular Hemoglobin Concent 34 g/dL (31-37) 34 g/dL (31-37) Red Cell Distribution Width 15.3 % (11.5-14.5) 14.7 % (11.5-14.5) Platelet Count 125 x10^3/uL (140-400) 131 x10^3/uL (140-400) Neutrophils (%) (Auto) 93 % (31-73) 92 % (31-73) Lymphocytes (%) (Auto) 3 % (24-48) 3 % (24-48) Monocytes (%) (Auto) 4 % (0-9) 5 % (0-9) Eosinophils (%) (Auto) 0 % (0-3) 0 % (0-3) Basophils (%) (Auto) 0 % (0-3) 0 % (0-3) Neutrophils # (Auto) 9.6 x10^3/uL (1.8-7.7) 7.9 x10^3/uL (1.8-7.7) Lymphocytes # (Auto) 0.3 x10^3/uL (1.0-4.8) 0.3 x10^3/uL (1.0-4.8) Monocytes # (Auto) 0.4 x10^3/uL (0.0-1.1) 0.4 x10^3/uL (0.0-1.1) Eosinophils # (Auto) 0.0 x10^3/uL (0.0-0.7) 0.0 x10^3/uL (0.0-0.7) Basophils # (Auto) 0.0 x10^3/uL (0.0-0.2) 0.0 x10^3/uL (0.0-0.2) Sodium Level 142 mmol/L (136-145) 143 mmol/L (136-145) Potassium Level 3.5 mmol/L (3.5-5.1) 3.5 mmol/L (3.5-5.1) Chloride Level 105 mmol/L (98-107) 105 mmol/L (98-107) Carbon Dioxide Level 30 mmol/L (21-32) 33 mmol/L (21-32) Anion Gap 7 (6-14) 5 (6-14) Blood Urea Nitrogen 28 mg/dL (8-26) 31 mg/dL (8-26) Creatinine 1.4 mg/dL (0.7-1.3) 1.5 mg/dL (0.7-1.3) Estimated GFR (Cockcroft-Gault) 62.1 57.4 BUN/Creatinine Ratio 20 (6-20) 21 (6-20) Glucose Level 130 mg/dL (70-99) 151 mg/dL (70-99) Calcium Level 9.4 mg/dL (8.5-10.1) 9.0 mg/dL (8.5-10.1) Total Bilirubin 0.3 mg/dL (0.2-1.0) 0.2 mg/dL (0.2-1.0) Aspartate Amino Transf (AST/SGOT) 14 U/L (15-37) 12 U/L (15-37) Alanine Aminotransferase (ALT/SGPT) 13 U/L (16-63) 13 U/L (16-63) Alkaline Phosphatase 69 U/L (46-116) 59 U/L (46-116) Total Protein 6.7 g/dL (6.4-8.2) 6.4 g/dL (6.4-8.2) Albumin 2.9 g/dL (3.4-5.0) 2.7 g/dL (3.4-5.0) Albumin/Globulin Ratio 0.8 (1.0-1.7) 0.7 (1.0-1.7) Laboratory Tests Test 01/16/19 04:00 White Blood Count 8.6 x10^3/uL (4.0-11.0) Red Blood Count 4.54 x10^6/uL (4.30-5.70) Hemoglobin 14.9 g/dL (13.0-17.5) Hematocrit 44.1 % (39.0-53.0) Mean Corpuscular Volume 97 fL (79-100) Mean Corpuscular Hemoglobin 33 pg (25-35) Mean Corpuscular Hemoglobin Concent 34 g/dL (31-37) Red Cell Distribution Width 14.7 % (11.5-14.5) Platelet Count 131 x10^3/uL (140-400) Neutrophils (%) (Auto) 92 % (31-73) Lymphocytes (%) (Auto) 3 % (24-48) Monocytes (%) (Auto) 5 % (0-9) Eosinophils (%) (Auto) 0 % (0-3) Basophils (%) (Auto) 0 % (0-3) Neutrophils # (Auto) 7.9 x10^3/uL (1.8-7.7) Lymphocytes # (Auto) 0.3 x10^3/uL (1.0-4.8) Monocytes # (Auto) 0.4 x10^3/uL (0.0-1.1) Eosinophils # (Auto) 0.0 x10^3/uL (0.0-0.7) Basophils # (Auto) 0.0 x10^3/uL (0.0-0.2) Sodium Level 143 mmol/L (136-145) Potassium Level 3.5 mmol/L (3.5-5.1) Chloride Level 105 mmol/L (98-107) Carbon Dioxide Level 33 mmol/L (21-32) Anion Gap 5 (6-14) Blood Urea Nitrogen 31 mg/dL (8-26) Creatinine 1.5 mg/dL (0.7-1.3) Estimated GFR (Cockcroft-Gault) 57.4 BUN/Creatinine Ratio 21 (6-20) Glucose Level 151 mg/dL (70-99) Calcium Level 9.0 mg/dL (8.5-10.1) Total Bilirubin 0.2 mg/dL (0.2-1.0) Aspartate Amino Transf (AST/SGOT) 12 U/L (15-37) Alanine Aminotransferase (ALT/SGPT) 13 U/L (16-63) Alkaline Phosphatase 59 U/L (46-116) Total Protein 6.4 g/dL (6.4-8.2) Albumin 2.7 g/dL (3.4-5.0) Albumin/Globulin Ratio 0.7 (1.0-1.7) Medications Current Medications Albuterol/ Ipratropium (Duoneb) 3 ml 1X ONCE NEB Last administered on 01/12/19at 04:17; Start 01/12/19 at 04:15; Stop 01/12/19 at 04:16; Status DC Methylprednisolone Sodium Succinate (SOLU-Medrol 125MG VIAL) 125 mg 1X ONCE IV Last administered on 01/12/19at 04:51; Start 01/12/19 at 04:15; Stop 01/12/19 at 04:16; Status DC Iohexol (Omnipaque 300 Mg/ml) 75 ml 1X ONCE IV ; Start 01/12/19 at 05:15; Stop 01/12/19 at 05:16; Status DC Info (CONTRAST GIVEN -- Rx MONITORING) 1 each PRN DAILY PRN MC SEE COMMENTS; Start 01/12/19 at 05:15; Stop 01/14/19 at 05:14; Status DC Piperacillin Sod/ Tazobactam Sod 4.5 gm/Sodium Chloride 100 ml @ 200 mls/hr 1X ONCE IV Last administered on 01/12/19at 06:04; Start 01/12/19 at 06:00; Stop 01/12/19 at 06:29; Status DC Vancomycin HCl 1.75 gm/Sodium Chloride 500 ml @ 250 mls/hr 1X ONCE IV Last administered on 01/12/19at 08:04; Start 01/12/19 at 06:00; Stop 01/12/19 at 07:59; Status DC Ondansetron HCl (Zofran) 4 mg PRN Q8HRS PRN IV NAUSEA/VOMITING; Start 01/12/19 at 05:45; Stop 01/13/19 at 05:44; Status DC Albuterol/ Ipratropium (Duoneb) 3 ml RTQID NEB Last administered on 01/12/19at 20:08; Start 01/12/19 at 08:00; Stop 01/13/19 at 07:59; Status DC Influenza Virus Vaccine Quadrival (Afluria Quad 2019-20 (3yr Up) Syringe) 0.5 ml ONCE ONCE VAX IM Last administered on 01/12/19at 16:26; Start 01/12/19 at 08:00; Stop 01/12/19 at 08:05; Status DC Sodium Chloride 1,000 ml @ 60 mls/hr [id number] IV Last administered on 01/13/19 01:33; Start 01/12/19 at 11:15; Stop 01/13/19 at 17:31; Status DC Piperacillin Sod/ Tazobactam Sod (Zosyn Per Pharmacy) 1 each PRN DAILY PRN MC SEE COMMENTS; Start 01/12/19 at 12:30 Vancomycin HCl (Vanco Per Pharmacy) 1 each PRN DAILY PRN MC SEE COMMENTS Last administered on 01/16/19 09:14; Start 01/12/19 at 12:30 Methylprednisolone Sodium Succinate (SOLU-Medrol 125MG VIAL) 62.5 mg Q6HRS IV Last administered on 01/16/19 12:32; Start 01/12/19 at 13:00 Hydralazine HCl (Apresoline) 25 mg TID PO Last administered on 01/16/19 07:54; Start 01/12/19 at 14:00 Isosorbide Mononitrate (Imdur) 30 mg DAILY PO Last administered on 01/16/19 07:53; Start 01/12/19 at 14:00 Hydralazine HCl (Apresoline Inj) 10 mg PRN Q4HRS PRN IVP ELEVATED BP, SEE COMMENTS; Start 01/12/19 at 12:45 Vancomycin HCl 1 gm/Sodium Chloride 250 ml @ 250 mls/hr Q18H IV Last administered on 01/13/19 21:23; Start 01/13/19 at 02:00; Stop 01/14/19 at 14:18; Status DC Vancomycin HCl (Vancomycin Trough Level) 1 each 1X ONCE MC Last administered on 01/14/19at 13:30; Start 01/14/19 at 13:30; Stop 01/14/19 at 13:31; Status DC Piperacillin Sod/ Tazobactam Sod 3.375 gm/Sodium Chloride 50 ml @ 100 mls/hr Q6HRS IV Last administered on 01/16/19 12:32; Start 01/12/19 at 14:00 Amlodipine Besylate (Norvasc) 10 mg DAILY PO Last administered on 01/16/19 07:55; Start 01/12/19 at 15:00 Clonidine HCl (Catapres) 0.1 mg BID PO Last administered on 01/16/19 07:54; Start 01/12/19 at 15:00 Doxycycline Hyclate (Vibra-Tab) 100 mg BID PO ; Start 01/12/19 at 21:00; Status UNV Furosemide (Lasix) 40 mg DAILY PO Last administered on 01/16/19at 07:55; Start 01/12/19 at 15:00 Hydralazine HCl (Apresoline) 50 mg TID PO ; Start 01/12/19 at 15:00; Stop 01/12/19 at 15:31; Status DC Lisinopril (Prinivil) 40 mg DAILY PO Last administered on 01/16/19at 07:55; Start 01/12/19 at 15:00 Potassium Chloride (Klor-Con) 20 meq DAILY PO Last administered on 01/16/19at 07:53; Start 01/12/19 at 15:00 Simvastatin (Zocor) 20 mg HS PO Last administered on 01/15/19at 20:51; Start 01/12/19 at 21:00 Non-Formulary Medication (Albuterol Sulfate (Albuterol Sulfate Neb Soln)) 0.63 mg PRN Q4HRS PRN NEB SHORTNESS OF BREATH; Start 01/12/19 at 13:45; Status UNV Carvedilol (Coreg) 25 mg BIDWMEALS PO ; Start 01/12/19 at 17:00; Stop 01/12/19 at 15:19; Status DC Non-Formulary Medication (Fluticasone/ Salmeterol (Advair 250-50 Diskus)) 1 puff BID IH ; Start 01/12/19 at 21:00; Status UNV Isosorbide Mononitrate (Imdur) 60 mg DAILY PO ; Start 01/12/19 at 15:00; Stop 01/12/19 at 15:31; Status DC Non-Formulary Medication (Methylprednisolone (Medrol)) 1 pkg UD PO ; Start 01/12/19 at 13:45; Stop 01/12/19 at 13:41; Status DC Lactobacillus Rhamnosus (Culturelle) 1 cap BID PO Last administered on 01/16/19at 07:55; Start 01/12/19 at 21:00 Albuterol Sulfate (Ventolin Neb Soln) 2.5 mg PRN Q4HRS PRN NEB SHORTNESS OF BREATH; Start 01/12/19 at 13:45 Budesonide (Pulmicort) 0.5 mg RTBID NEB Last administered on 01/16/19 08:24; Start 01/12/19 at 15:00 Albuterol/ Ipratropium (Duoneb) 3 ml RTQID NEB Last administered on 01/16/19at 12:40; Start 01/12/19 at 16:00 Enoxaparin Sodium (Lovenox 40mg Syringe) 40 mg Q24H SQ Last administered on 01/16/19 07:53; Start 01/13/19 at 11:00 Furosemide (Lasix) 20 mg 1X ONCE IVP Last administered on 01/13/19 11:42; Start 01/13/19 at 11:15; Stop 01/13/19 at 11:16; Status DC Furosemide (Lasix) 20 mg 1X ONCE IVP Last administered on 01/13/19at 17:44; Start 01/13/19 at 17:30; Stop 01/13/19 at 17:32; Status DC Metoprolol Succinate (Toprol Xl) 50 mg DAILY PO Last administered on 01/16/19at 07:56; Start 01/14/19 at 12:00 Vancomycin HCl 1.25 gm/Sodium Chloride 250 ml @ 167 mls/hr Q18H IV Last administered on 01/16/19 03:27; Start 01/14/19 at 15:00 Temazepam (Restoril) 7.5 mg PRN QHS PRN PO INSOMNIA; Start 01/14/19 at 18:45 Guaifenesin (Robitussin Dm) 10 ml PRN Q6HRS PRN PO COUGH; Start 01/14/19 at 18:45 Acetaminophen (Tylenol) 500 mg PRN Q6HRS PRN PO MILD PAIN / TEMP; Start 01/14/19 at 18:45 Ondansetron HCl (Zofran) 4 mg PRN Q6HRS PRN IVP NAUSEA/VOMITING; Start 01/14/19 at 18:45 Active Scripts Active Azithromycin Tablet (Azithromycin) 250 Mg Tablet 1 Pkg PO UD Advair 250-50 Diskus (Fluticasone/Salmeterol) 1 Each Disk.w.dev 1 Puff IH BID Ipratropium [place] 0.2 Mg/1 Ml Solution 1 Vial NEB QID PRN Doxycycline Hyclate 100 Mg Tablet 1 Tab PO BID NEXT DOSE DUE AT BEDTIME TONIGHT Medrol (Methylprednisolone) 4 Mg Tab.ds.pk 1 Pkg PO UD Albuterol Sulfate Neb Soln (Albuterol Sulfate) 0.63 Mg/3 Ml Vial.neb 0.63 Mg NEB PRN Q4HRS PRN 30 Days NEEDED Reported Zocor (Simvastatin) 20 Mg Tablet 20 Mg PO HS NEXT DOSE DUE TONIGHT AT BEDTIME Isosorbide Mononitrate Er (Isosorbide Mononitrate) 60 Mg Tab.er.24h 60 Mg PO DAILY NEXT DOSE DUE IN AM Lisinopril 40 Mg Tablet 40 Mg PO DAILY NEXT DOSE DUE IN AM Carvedilol 25 Mg Tablet 25 Mg PO BIDWMEALS NEXT DOSE DUE AT DINNER THIS EVENING Clonidine Hcl 0.1 Mg Tablet 0.1 Mg PO BID NEXT DOSE DUE AT BEDTIME TONIGHT Hydralazine Hcl 50 Mg Tablet 50 Mg PO TID NEXT DOSE DUE AT BEDTIME TONIGHT Amlodipine Besylate 10 Mg Tablet 10 Mg PO DAILY NEXT DOSE DUE IN AM Furosemide 40 Mg Tablet 40 Mg PO DAILY NEXT DOSE DUE IN AM Potassium Chloride 10 Meq Tab.er.prt 20 Meq PO DAILY NEXT DOSE DUE IN AM Vitals/I & O Vital Sign - Last 24 Hours 01/15/19 01/15/19 01/15/19 01/15/19 15:00 16:09 19:00 20:08 Temp 98.2 98.1 98.2 98.1 Pulse 64 70 Resp 18 20 B/P (MAP) 143/71 (95) 156/83 (107) Pulse Ox 91 91 94 O2 Delivery Nasal Cannula Nasal Cannula Nasal Cannula Nasal Cannula O2 Flow Rate 5.0 5.0 5.0 5.0 01/15/19 01/15/19 01/15/19 01/15/19 20:27 20:51 20:52 23:00 Temp 98.1 98.1 Pulse 70 70 66 Resp 20 B/P (MAP) 156/83 156/83 150/91 (110) Pulse Ox 91 O2 Delivery Nasal Cannula Nasal Cannula O2 Flow Rate 5.0 5.0 01/16/19 01/16/19 01/16/19 01/16/19 03:00 07:00 07:53 07:54 Temp 98.1 98.3 98.1 98.3 Pulse 75 75 72 72 Resp 20 20 B/P (MAP) 162/92 (115) 150/90 (110) 150/90 150/90 Pulse Ox 90 92 O2 Delivery Nasal Cannula Nasal Cannula O2 Flow Rate 5.0 5.0 01/16/19 01/16/19 01/16/19 01/16/19 07:54 07:55 07:55 07:56 Pulse 72 72 72 72 B/P (MAP) 150/90 150/90 150/90 150/90 01/16/19 01/16/19 01/16/19 01/16/19 08:02 08:45 11:31 12:41 Temp 98.2 98.2 Pulse 74 Resp 20 B/P (MAP) 133/76 (95) Pulse Ox 95 92 95 O2 Delivery Nasal Cannula Nasal Cannula Nasal Cannula Nasal Cannula O2 Flow Rate 5.0 5.0 5.0 5.0 Intake and Output 01/15/19 01/15/19 01/16/19 15:00 23:00 07:00 Intake Total 280 ml 280 ml 120 ml Output Total 425 ml 750 ml Balance -145 ml -470 ml 120 ml CLAUDE LAUREANO MD Jan 16, 2019 13:51
[2019-01-16 14:28] VITALS: BP 130/87
[2019-01-16 18:29] VITALS: BP 127/78
[2019-01-16] MEDS: SIMVASTATIN 20 MG TABLET PO SCH (20:32)
[2019-01-16 22:59] VITALS: BP 141/80
[2019-01-17] MEDS: methylPREDNISolone SOD SUCC PF 125 MG/2 ML VIAL. IV SCH ×5 (00:04→23:36)
[2019-01-17] MEDS: PIPERACILLIN/TAZOBACTAM 3.375 GM in IV NORMAL SALINE 50ML 50 ML IV SCH ×5 (00:06→23:37)
[2019-01-17 03:00] VITALS: BP 161/84
[2019-01-17 04:17] LABS: BASO % 0 % (0-3); EOS % 0 % (0-3); HEMATOCRIT 45.6 % (39.0-53.0); HEMOGLOBIN 15.2 g/dL (13.0-17.5); LYMPH # 0.3 x10^3/uL (1.0-4.8); LYMPH % 3 % (24-48); MEAN CORPUSCULAR HEMOGLOBIN 33 pg (25-35); MEAN CORPUSCULAR HGB CONC 33 g/dL (31-37); MEAN CORPUSCULAR VOLUME 98 fL (79-100); MONO # 0.5 x10^3/uL (0.0-1.1); MONO % 6 % (0-9); NEUT # 8.7 x10^3/uL (1.8-7.7); NEUT % 91 % (31-73); PLATELET COUNT 140 x10^3/uL (140-400); RED BLOOD COUNT 4.66 x10^6/uL (4.30-5.70); WHITE BLOOD COUNT 9.5 x10^3/uL (4.0-11.0)
[2019-01-17 04:42] LABS: ALBUMIN 2.6 g/dL (3.4-5.0); ALBUMIN/GLOBULIN RATIO 0.7 (1.0-1.7); CREATININE 1.5 mg/dL (0.7-1.3); GFR 57.4; POTASSIUM 3.7 mmol/L (3.5-5.1); TOTAL BILIRUBIN 0.3 mg/dL (0.2-1.0); TOTAL PROTEIN 6.3 g/dL (6.4-8.2)
[2019-01-17 07:08] VITALS: BP 177/90
[2019-01-17] MEDS: IPRATRPIUM/ALBUTEROL 0.5/2.5MG 3 ML NEBU. NEB SCH ×4 (07:32→20:12)
[2019-01-17] MEDS: BUDESONIDE 0.5 MG/2 ML NEBU. NEB SCH ×2 (07:32→20:12)
[2019-01-17] MEDS: LISINOPRIL 20 MG TABLET PO SCH (08:17)
[2019-01-17] MEDS: METOPROLOL SUCC 24HR ER 50 MG TAB.ER.24H. PO SCH (08:18)
[2019-01-17] MEDS: hydrALAZINE 25 MG TABLET PO SCH ×3 (08:18→21:03)
[2019-01-17] MEDS: LACTOBACILLUS RHAMNOSUS GG 1 CAPSULE. PO SCH ×2 (08:18→21:00)
[2019-01-17] MEDS: ISOSORBIDE MONONITRATE ER 30 MG TAB.ER.24H PO SCH (08:18)
[2019-01-17] MEDS: FUROSEMIDE 40 MG TABLET. PO SCH (08:19)
[2019-01-17] MEDS: amLODIPine BESYLATE 10 MG TABLET PO SCH (08:19)
[2019-01-17] MEDS: POTASSIUM CHLORIDE 10 MEQ TABLET.ER. PO SCH (08:19)
[2019-01-17] MEDS: cloNIDine HCL 0.1 MG TABLET PO SCH ×2 (08:19→21:04)
[2019-01-17] MEDS: ENOXAPARIN 40 MG/0.4 ML SYRINGE. SQ SCH (10:59)
[2019-01-17 11:09] VITALS: BP 143/89
--- NOTE | 2019-01-17 11:39 | PDOC ---
PULMONARY PROGRESS NOTES Subjective sob better, has occ cough, no sputum, no pain Vitals Vital Signs Date Time Temp Pulse Resp B/P (MAP) Pulse Ox O2 Delivery O2 Flow Rate FiO2 01/17/19 11:09 98.4 68 18 143/89 (107) 93 Nasal Cannula 4.0 98.4 General: Alert, No acute distress Lungs: Crackles (bases) Cardiovascular: S1, S2 Abdomen: Soft, Non-tender Neuro Exam: Alert Extremities: No Edema Labs Laboratory Tests Test 01/16/19 04:00 01/17/19 03:50 White Blood Count 8.6 x10^3/uL (4.0-11.0) 9.5 x10^3/uL (4.0-11.0) Red Blood Count 4.54 x10^6/uL (4.30-5.70) 4.66 x10^6/uL (4.30-5.70) Hemoglobin 14.9 g/dL (13.0-17.5) 15.2 g/dL (13.0-17.5) Hematocrit 44.1 % (39.0-53.0) 45.6 % (39.0-53.0) Mean Corpuscular Volume 97 fL (79-100) 98 fL (79-100) Mean Corpuscular Hemoglobin 33 pg (25-35) 33 pg (25-35) Mean Corpuscular Hemoglobin Concent 34 g/dL (31-37) 33 g/dL (31-37) Red Cell Distribution Width 14.7 % (11.5-14.5) 15.0 % (11.5-14.5) Platelet Count 131 x10^3/uL (140-400) 140 x10^3/uL (140-400) Neutrophils (%) (Auto) 92 % (31-73) 91 % (31-73) Lymphocytes (%) (Auto) 3 % (24-48) 3 % (24-48) Monocytes (%) (Auto) 5 % (0-9) 6 % (0-9) Eosinophils (%) (Auto) 0 % (0-3) 0 % (0-3) Basophils (%) (Auto) 0 % (0-3) 0 % (0-3) Neutrophils # (Auto) 7.9 x10^3/uL (1.8-7.7) 8.7 x10^3/uL (1.8-7.7) Lymphocytes # (Auto) 0.3 x10^3/uL (1.0-4.8) 0.3 x10^3/uL (1.0-4.8) Monocytes # (Auto) 0.4 x10^3/uL (0.0-1.1) 0.5 x10^3/uL (0.0-1.1) Eosinophils # (Auto) 0.0 x10^3/uL (0.0-0.7) 0.0 x10^3/uL (0.0-0.7) Basophils # (Auto) 0.0 x10^3/uL (0.0-0.2) 0.0 x10^3/uL (0.0-0.2) Sodium Level 143 mmol/L (136-145) 142 mmol/L (136-145) Potassium Level 3.5 mmol/L (3.5-5.1) 3.7 mmol/L (3.5-5.1) Chloride Level 105 mmol/L (98-107) 106 mmol/L (98-107) Carbon Dioxide Level 33 mmol/L (21-32) 30 mmol/L (21-32) Anion Gap 5 (6-14) 6 (6-14) Blood Urea Nitrogen 31 mg/dL (8-26) 30 mg/dL (8-26) Creatinine 1.5 mg/dL (0.7-1.3) 1.5 mg/dL (0.7-1.3) Estimated GFR (Cockcroft-Gault) 57.4 57.4 BUN/Creatinine Ratio 21 (6-20) 20 (6-20) Glucose Level 151 mg/dL (70-99) 146 mg/dL (70-99) Calcium Level 9.0 mg/dL (8.5-10.1) 9.0 mg/dL (8.5-10.1) Total Bilirubin 0.2 mg/dL (0.2-1.0) 0.3 mg/dL (0.2-1.0) Aspartate Amino Transf (AST/SGOT) 12 U/L (15-37) 12 U/L (15-37) Alanine Aminotransferase (ALT/SGPT) 13 U/L (16-63) 13 U/L (16-63) Alkaline Phosphatase 59 U/L (46-116) 84 U/L (46-116) Total Protein 6.4 g/dL (6.4-8.2) 6.3 g/dL (6.4-8.2) Albumin 2.7 g/dL (3.4-5.0) 2.6 g/dL (3.4-5.0) Albumin/Globulin Ratio 0.7 (1.0-1.7) 0.7 (1.0-1.7) Laboratory Tests Test 01/17/19 03:50 White Blood Count 9.5 x10^3/uL (4.0-11.0) Red Blood Count 4.66 x10^6/uL (4.30-5.70) Hemoglobin 15.2 g/dL (13.0-17.5) Hematocrit 45.6 % (39.0-53.0) Mean Corpuscular Volume 98 fL (79-100) Mean Corpuscular Hemoglobin 33 pg (25-35) Mean Corpuscular Hemoglobin Concent 33 g/dL (31-37) Red Cell Distribution Width 15.0 % (11.5-14.5) Platelet Count 140 x10^3/uL (140-400) Neutrophils (%) (Auto) 91 % (31-73) Lymphocytes (%) (Auto) 3 % (24-48) Monocytes (%) (Auto) 6 % (0-9) Eosinophils (%) (Auto) 0 % (0-3) Basophils (%) (Auto) 0 % (0-3) Neutrophils # (Auto) 8.7 x10^3/uL (1.8-7.7) Lymphocytes # (Auto) 0.3 x10^3/uL (1.0-4.8) Monocytes # (Auto) 0.5 x10^3/uL (0.0-1.1) Eosinophils # (Auto) 0.0 x10^3/uL (0.0-0.7) Basophils # (Auto) 0.0 x10^3/uL (0.0-0.2) Sodium Level 142 mmol/L (136-145) Potassium Level 3.7 mmol/L (3.5-5.1) Chloride Level 106 mmol/L (98-107) Carbon Dioxide Level 30 mmol/L (21-32) Anion Gap 6 (6-14) Blood Urea Nitrogen 30 mg/dL (8-26) Creatinine 1.5 mg/dL (0.7-1.3) Estimated GFR (Cockcroft-Gault) 57.4 BUN/Creatinine Ratio 20 (6-20) Glucose Level 146 mg/dL (70-99) Calcium Level 9.0 mg/dL (8.5-10.1) Total Bilirubin 0.3 mg/dL (0.2-1.0) Aspartate Amino Transf (AST/SGOT) 12 U/L (15-37) Alanine Aminotransferase (ALT/SGPT) 13 U/L (16-63) Alkaline Phosphatase 84 U/L (46-116) Total Protein 6.3 g/dL (6.4-8.2) Albumin 2.6 g/dL (3.4-5.0) Albumin/Globulin Ratio 0.7 (1.0-1.7) Medications Active Scripts Medications Dose Route/Sig Max Daily Dose Days Date Category Dose Instructions Azithromycin Tablet (Azithromycin) 250 Mg Tablet 1 Pkg PO UD 10/14/16 Rx Advair 250-50 Diskus (Fluticasone/Salmeterol) 1 Each Disk.w.dev 1 Puff IH BID 10/13/16 Rx Ipratropium [place] 0.2 Mg/1 Ml Solution 1 Vial NEB QID PRN 10/13/16 Rx Doxycycline Hyclate 100 Mg Tablet 1 Tab PO BID 10/13/16 Rx NEXT DOSE DUE AT BEDTIME TONIGHT Medrol (Methylprednisolone) 4 Mg Tab.ds.pk 1 Pkg PO UD 10/13/16 Rx Albuterol Sulfate Neb Soln (Albuterol Sulfate) 0.63 Mg/3 Ml Vial.neb 0.63 Mg NEB PRN Q4HRS PRN 30 10/13/16 Rx NEEDED Zocor (Simvastatin) 20 Mg Tablet 20 Mg PO HS 10/27/14 Reported NEXT DOSE DUE TONIGHT AT BEDTIME Isosorbide Mononitrate Er (Isosorbide Mononitrate) 60 Mg Tab.er.24h 60 Mg PO DAILY 10/27/14 Reported NEXT DOSE DUE IN AM Lisinopril 40 Mg Tablet 40 Mg PO DAILY 04/03/14 Reported NEXT DOSE DUE IN AM Carvedilol 25 Mg Tablet 25 Mg PO BIDWMEALS 04/03/14 Reported NEXT DOSE DUE AT DINNER THIS EVENING Clonidine Hcl 0.1 Mg Tablet 0.1 Mg PO BID 04/03/14 Reported NEXT DOSE DUE AT BEDTIME TONIGHT Hydralazine Hcl 50 Mg Tablet 50 Mg PO TID 02/25/14 Reported NEXT DOSE DUE AT BEDTIME TONIGHT Amlodipine Besylate 10 Mg Tablet 10 Mg PO DAILY 06/13/13 Reported NEXT DOSE DUE IN AM Furosemide 40 Mg Tablet 40 Mg PO DAILY 06/13/13 Reported NEXT DOSE DUE IN AM Potassium Chloride 10 Meq Tab.er.prt 20 Meq PO DAILY 06/13/13 Reported NEXT DOSE DUE IN AM Comments CXR 01/17 RUL ATELECTASIS ,worse echo The systolic function is mildly impaired. EF 40-45% There is global hypokinesis of the left ventricle. The septal motion is suggestive of conduction defect. Doppler and Color Flow revealed moderate aortic regurgitation. Impression . 1. Acute hypoxic respiratory failure secondary to multifactorial etiologies including combination of underlying chronic obstructive pulmonary disease, right upper lobe atelectasis. No evidence of thromboembolic disease. Possible CHF 01/13 2. Long history of tobacco use, suspect underlying chronic obstructive pulmonary disease. Along with cocaine, marijuana and alcohol abuse. 3. Abnormal CT chest with right upper lobe collapse. Likely postobstructive. Possibility of endobronchial lesion cannot be ruled out. Mucous plug would be another consideration. 4. Cardiomyopathy, mod AI Plan . 1. 02 titration 2. VQ scan neg for PE 3. cxr ,no change in RUL collapse 4. Follow Cardiology recommendation reg low EF and mod AI 5. Monitor blood pressure closely. 6. bronchodilators. 7. Smoking cessation counseling provided. 8. Discussed with RN and pt. 9. will need Bronch for persistent RUL atelectasis .schedule JannethSHARON Mccormick MD Jan 17, 2019 11:39
--- NOTE | 2019-01-17 11:57 | PDOC ---
[employer] PROGRESS NOTE Chief Complaint Chief Complaint COPD exacerbation Possible lung mass Hypoxia Substance abuse History of Present Illness History of Present Illness 01/17/19 Pt seen and examined at bedside Had CXR completed today Bronchoscopy scheduled for Thursday Charts and labs reviewed 01/16/19 Pt seen and examined at bedside Out of ICU, in better condition EF = 40-45% Bronchoscopy scheduled for Thursday Right sided atelectasis based on pulmonary progress note Charts and labs reviewed 01/15/19 Pt seen and examined Pt has been feeling better and getting more sleep on the floor. He is glad to be out of the ICU and is breathing better. Pt recieving O2 via nasal cannula He still has some wheezing and a cough Ejection fraction 35% Appetite has improved Scheduled bronch for Thursday DW RN 01/14/19 Pt was seen and examined in the ICU Pt was on the commode Receiving O2 via Ventimask Charts and labs reviewed EF = 35% with cardiomegaly Continues to be hypoxia Crackles heard on lung exam ABG pH is 7.41 D/w RN 01/13/19 Pt was seen and examined in the ICU Receiving O2 via Ventimask EF = 35% with cardiomegaly Continues to be hypoxia Crackles heard on lung exam Cr was 1.[address] with contrast could not be performed V/Q scan for possible PE Vitals/I&O Vitals/I&O: Vital Signs Date Time Temp Pulse Resp B/P (MAP) Pulse Ox O2 Delivery O2 Flow Rate FiO2 01/17/19 11:43 Nasal Cannula 4.0 01/17/19 11:09 98.4 68 18 143/89 (107) 93 98.4 I & O 01/16/19 01/16/19 01/17/19 15:00 23:00 07:00 Intake Total 1110 ml 1050 ml 1000 ml Balance 1110 ml 1050 ml 1000 ml Physical Exam Physical Exam: General: Alert, No acute distress Lungs: Crackles (bases) Cardiovascular: S1, S2 Abdomen: Soft, Non-tender Neuro Exam: Alert Extremities: No Edema General: mild distress Heart: Regular rate Lungs: Crackles (bases) Abdomen: Normal bowel sounds Extremities: Other (1+ bilateral LE pitting edema) Labs Labs: Laboratory Tests Test 01/17/19 03:50 White Blood Count 9.5 x10^3/uL (4.0-11.0) Red Blood Count 4.66 x10^6/uL (4.30-5.70) Hemoglobin 15.2 g/dL (13.0-17.5) Hematocrit 45.6 % (39.0-53.0) Mean Corpuscular Volume 98 fL (79-100) Mean Corpuscular Hemoglobin 33 pg (25-35) Mean Corpuscular Hemoglobin Concent 33 g/dL (31-37) Red Cell Distribution Width 15.0 % (11.5-14.5) Platelet Count 140 x10^3/uL (140-400) Neutrophils (%) (Auto) 91 % (31-73) Lymphocytes (%) (Auto) 3 % (24-48) Monocytes (%) (Auto) 6 % (0-9) Eosinophils (%) (Auto) 0 % (0-3) Basophils (%) (Auto) 0 % (0-3) Neutrophils # (Auto) 8.7 x10^3/uL (1.8-7.7) Lymphocytes # (Auto) 0.3 x10^3/uL (1.0-4.8) Monocytes # (Auto) 0.5 x10^3/uL (0.0-1.1) Eosinophils # (Auto) 0.0 x10^3/uL (0.0-0.7) Basophils # (Auto) 0.0 x10^3/uL (0.0-0.2) Sodium Level 142 mmol/L (136-145) Potassium Level 3.7 mmol/L (3.5-5.1) Chloride Level 106 mmol/L (98-107) Carbon Dioxide Level 30 mmol/L (21-32) Anion Gap 6 (6-14) Blood Urea Nitrogen 30 mg/dL (8-26) Creatinine 1.5 mg/dL (0.7-1.3) Estimated GFR (Cockcroft-Gault) 57.4 BUN/Creatinine Ratio 20 (6-20) Glucose Level 146 mg/dL (70-99) Calcium Level 9.0 mg/dL (8.5-10.1) Total Bilirubin 0.3 mg/dL (0.2-1.0) Aspartate Amino Transf (AST/SGOT) 12 U/L (15-37) Alanine Aminotransferase (ALT/SGPT) 13 U/L (16-63) Alkaline Phosphatase 84 U/L (46-116) Total Protein 6.3 g/dL (6.4-8.2) Albumin 2.6 g/dL (3.4-5.0) Albumin/Globulin Ratio 0.7 (1.0-1.7) Review of Systems Review of Systems: No nausea, no vomiting No chest pain, no palpitations Assessment and Plan Assessmemt and Plan Problems Medical Problems: (1) Acute on chronic combined systolic and diastolic heart failure Status: Acute (2) Acute respiratory failure with hypoxia Status: Acute (3) Bradycardia Status: Acute (4) CKD (chronic kidney disease), stage III Status: Chronic (5) COPD exacerbation Status: Acute (6) Dyspnea Status: Acute (7) HTN (hypertension) Status: Chronic (8) LBBB (left bundle branch block) Status: Chronic (9) Left flank pain Status: Acute (10) Lung mass Status: Acute (11) NICM (nonischemic cardiomyopathy) Status: Chronic (12) Pneumonia Status: Acute (13) Substance abuse Status: Acute Assessment COPD exacerbation CHF Pneumonia Substance abuse Plan Titrate down O2 DVT prophylaxis Steroids Abx O2 by nasal cannula Labs Await bronchoscopy results Pulmonary following Full code Comment Review of Relevant I have reviewed the following items rishi (where applicable) has been applied. KINA CONTRERAS III DO Jan 17, 2019 11:56
--- NOTE | 2019-01-17 12:06 | NUR ---
SS following up with discharge planning. Pt transferred to second floor from ICU. Pt is currently requiring oxygen. No PT/OT recommendations at this time. SS will continue to follow for discharge planning.
--- NOTE | 2019-01-17 12:12 | PDOC ---
CARDIO Progress Notes Date and Time Date of Service 01/17/19 Time of Evaluation 1210 Subjective Subjective: No Chest Pain, No Palpitations, Other (SOA better ) Vitals Vitals Vital Signs Date Time Temp Pulse Resp B/P (MAP) Pulse Ox O2 Delivery O2 Flow Rate FiO2 01/17/19 11:43 Nasal Cannula 4.0 01/17/19 11:09 98.4 68 18 143/89 (107) 93 98.4 Weight Weight [ ] Input and Output Intake and Output Intake and Output 01/17/19 07:00 Intake Total 3160 ml Balance 3160 ml Intake Oral 2810 ml IV Total 350 ml # Voids 4 Laboratory Labs Laboratory Tests Test 01/17/19 03:50 White Blood Count 9.5 x10^3/uL (4.0-11.0) Red Blood Count 4.66 x10^6/uL (4.30-5.70) Hemoglobin 15.2 g/dL (13.0-17.5) Hematocrit 45.6 % (39.0-53.0) Mean Corpuscular Volume 98 fL (79-100) Mean Corpuscular Hemoglobin 33 pg (25-35) Mean Corpuscular Hemoglobin Concent 33 g/dL (31-37) Red Cell Distribution Width 15.0 % (11.5-14.5) Platelet Count 140 x10^3/uL (140-400) Neutrophils (%) (Auto) 91 % (31-73) Lymphocytes (%) (Auto) 3 % (24-48) Monocytes (%) (Auto) 6 % (0-9) Eosinophils (%) (Auto) 0 % (0-3) Basophils (%) (Auto) 0 % (0-3) Neutrophils # (Auto) 8.7 x10^3/uL (1.8-7.7) Lymphocytes # (Auto) 0.3 x10^3/uL (1.0-4.8) Monocytes # (Auto) 0.5 x10^3/uL (0.0-1.1) Eosinophils # (Auto) 0.0 x10^3/uL (0.0-0.7) Basophils # (Auto) 0.0 x10^3/uL (0.0-0.2) Sodium Level 142 mmol/L (136-145) Potassium Level 3.7 mmol/L (3.5-5.1) Chloride Level 106 mmol/L (98-107) Carbon Dioxide Level 30 mmol/L (21-32) Anion Gap 6 (6-14) Blood Urea Nitrogen 30 mg/dL (8-26) Creatinine 1.5 mg/dL (0.7-1.3) Estimated GFR (Cockcroft-Gault) 57.4 BUN/Creatinine Ratio 20 (6-20) Glucose Level 146 mg/dL (70-99) Calcium Level 9.0 mg/dL (8.5-10.1) Total Bilirubin 0.3 mg/dL (0.2-1.0) Aspartate Amino Transf (AST/SGOT) 12 U/L (15-37) Alanine Aminotransferase (ALT/SGPT) 13 U/L (16-63) Alkaline Phosphatase 84 U/L (46-116) Total Protein 6.3 g/dL (6.4-8.2) Albumin 2.6 g/dL (3.4-5.0) Albumin/Globulin Ratio 0.7 (1.0-1.7) Physical Exam HEENT: Neck Supple W Full Motion Chest: Symmetric LUNGS: Other (friction rub ) Heart: RRR (SR with intermittent PVCs) Abdomen: Soft N/T Extremities: No Calf Tenderness Neurology: alert, oriented, follow commands Assessment Assessment 1. Bradycardia; improved. 2. Dyspnea: mainly due to RUL collapse with possible endobronchial mass. Bronch planned for tomorrow. 3. Substance abuse: UDS+cocaine 4. NICM: last EF 35% and now better at 40-45% 5. Chronic systolic CHF: clinically compensated 6. Chronic LBBB 7. HTN: labile 8. CKD: Cr stable 9. Hx of noncompliance 10. COPD with continued tobaccoism 11. Moderate AI Recommendations Continue Toprol given cardiomyopathy Afterload reduction; continue with hydralazine, Imdur, ACEi Smoking and cocaine cessation reinforced Supportive care. BRITTON MORAN APRN Jan 17, 2019 12:12
--- NOTE | 2019-01-17 14:13 | RAD ---
PA and lateral chest x-ray compared to similar examination dated 01/14/2019 for follow-up on atelectasis. FINDINGS: There is worsening atelectasis in the right upper lobe, with near complete collapse of the right upper lobe, resulting in tenting of the right hemidiaphragm. Left lung has developed patchy airspace disease in the left lung base which could reflect atelectasis or pneumonic infiltrate. Heart size is enlarged but stable. Hilar adenopathy is suggested, though this could be on the basis of prominent pulmonary vasculature is well. IMPRESSION: 1. Progression to near complete right upper lobe atelectasis. 2. Development of atelectasis or infiltrate in the left lung base. 3. Stable cardiomegaly without congestive heart failure. Electronically signed by: Jay Diaz MD (01/17/2019 2:11 PM) [id number]
[2019-01-17 14:24] VITALS: BP 135/80
[2019-01-17] MEDS: VANCOMYCIN 1.25 GM in IV NORMAL SALINE 250ML 250 ML IV SCH (14:27)
[2019-01-17 19:19] VITALS: BP 134/76
[2019-01-17] MEDS: SIMVASTATIN 20 MG TABLET PO SCH (21:00)
[2019-01-17 22:37] VITALS: BP 129/71
[2019-01-18 03:01] VITALS: BP 164/90
[2019-01-18 04:35] LABS: BASO % 0 % (0-3); EOS % 0 % (0-3); HEMATOCRIT 45.4 % (39.0-53.0); HEMOGLOBIN 15.3 g/dL (13.0-17.5); LYMPH # 0.2 x10^3/uL (1.0-4.8); LYMPH % 2 % (24-48); MEAN CORPUSCULAR HEMOGLOBIN 33 pg (25-35); MEAN CORPUSCULAR HGB CONC 34 g/dL (31-37); MEAN CORPUSCULAR VOLUME 97 fL (79-100); MONO # 0.6 x10^3/uL (0.0-1.1); MONO % 6 % (0-9); NEUT # 9.5 x10^3/uL (1.8-7.7); NEUT % 92 % (31-73); PLATELET COUNT 148 x10^3/uL (140-400); RED BLOOD COUNT 4.66 x10^6/uL (4.30-5.70); WHITE BLOOD COUNT 10.4 x10^3/uL (4.0-11.0)
[2019-01-18 05:18] LABS: ALBUMIN 2.6 g/dL (3.4-5.0); ALBUMIN/GLOBULIN RATIO 0.7 (1.0-1.7); CALCIUM 8.8 mg/dL (8.5-10.1); CREATININE 1.5 mg/dL (0.7-1.3); GFR 57.4; POTASSIUM 3.6 mmol/L (3.5-5.1); TOTAL BILIRUBIN 0.3 mg/dL (0.2-1.0); TOTAL PROTEIN 6.3 g/dL (6.4-8.2)
[2019-01-18] MEDS: methylPREDNISolone SOD SUCC PF 125 MG/2 ML VIAL. IV SCH ×4 (05:49→23:51)
[2019-01-18] MEDS: PIPERACILLIN/TAZOBACTAM 3.375 GM in IV NORMAL SALINE 50ML 50 ML IV SCH ×4 (05:49→23:52)
[2019-01-18 07:00] VITALS: BP 158/93
[2019-01-18] MEDS ORDERED: fentaNYL PF VIAL 100 MCG/2 ML VIAL IV PRN ×2 (07:00)
[2019-01-18] MEDS ORDERED: MORPHINE SULFATE 2 MG/ML VIAL. IV PRN (07:00)
[2019-01-18] MEDS ORDERED: HYDROmorphone 2 MG/ML VIAL IV PRN (07:00)
[2019-01-18] MEDS ORDERED: PROCHLORPERAZINE 10 MG/2 ML VIAL. IV PRN (07:00)
[2019-01-18] MEDS ORDERED: IV RINGERS,LACTATED 1000ML 1,000 ML IV SCH (07:00)
[2019-01-18] MEDS: hydrALAZINE 25 MG TABLET PO SCH ×3 (07:47→20:43)
[2019-01-18] MEDS: LACTOBACILLUS RHAMNOSUS GG 1 CAPSULE. PO SCH ×2 (07:47→20:42)
[2019-01-18] MEDS: cloNIDine HCL 0.1 MG TABLET PO SCH ×2 (07:47→20:42)
[2019-01-18] MEDS: POTASSIUM CHLORIDE 10 MEQ TABLET.ER. PO SCH (07:47)
[2019-01-18] MEDS: ISOSORBIDE MONONITRATE ER 30 MG TAB.ER.24H PO SCH (07:47)
[2019-01-18] MEDS: FUROSEMIDE 40 MG TABLET. PO SCH (07:48)
[2019-01-18] MEDS: LISINOPRIL 20 MG TABLET PO SCH (07:48)
[2019-01-18] MEDS: amLODIPine BESYLATE 10 MG TABLET PO SCH (07:48)
[2019-01-18] MEDS: METOPROLOL SUCC 24HR ER 50 MG TAB.ER.24H. PO SCH (07:48)
[2019-01-18] MEDS: IPRATRPIUM/ALBUTEROL 0.5/2.5MG 3 ML NEBU. NEB SCH ×4 (07:59→19:32)
[2019-01-18] MEDS: BUDESONIDE 0.5 MG/2 ML NEBU. NEB SCH ×2 (07:59→19:32)
[2019-01-18] MEDS: VANCOMYCIN 1.25 GM in IV NORMAL SALINE 250ML 250 ML IV SCH (08:35)
[2019-01-18] MEDS ORDERED: LIDOCAINE 1% Multi-Dose 20 ML VIAL. INJ PRN (09:00)
[2019-01-18] MEDS ORDERED: EPINEPHrine 1 MG/ML VIAL INJ PRN (09:00)
[2019-01-18] MEDS ORDERED: LIDOCAINE 4% TOPICAL 50 ML SOLUTION. MM PRN (09:00)
[2019-01-18] MEDS ORDERED: LIDOCAINE 2% VISCOUS 100 ML BOTTLE. MM PRN (09:00)
[2019-01-18] MEDS ORDERED: LIDOCAINE 2% VISCOUS 100 ML BOTTLE. ONE (09:04)
[2019-01-18] MEDS ORDERED: LIDOCAINE 4% TOPICAL 50 ML SOLUTION. ONE (09:04)
[2019-01-18] MEDS ORDERED: LIDOCAINE 1% Multi-Dose 20 ML VIAL. ONE (09:04)
[2019-01-18] MEDS ORDERED: EPINEPHrine 1 MG/ML VIAL ONE (09:04)
--- NOTE | 2019-01-18 09:46 | PDOC ---
PULMONARY PROGRESS NOTES Subjective sob better, has occ cough, no sputum, no pain Vitals Vital Signs Date Time Temp Pulse Resp B/P (MAP) Pulse Ox O2 Delivery O2 Flow Rate FiO2 01/18/19 07:56 93 Nasal Cannula 3.0 01/18/19 07:00 97.7 60 20 158/93 (114) 97.7 General: Alert, No acute distress Lungs: Crackles (bases) Cardiovascular: S1, S2 Abdomen: Soft, Non-tender Neuro Exam: Alert Extremities: No Edema Labs Laboratory Tests Test 01/17/19 03:50 01/18/19 03:55 White Blood Count 9.5 x10^3/uL (4.0-11.0) 10.4 x10^3/uL (4.0-11.0) Red Blood Count 4.66 x10^6/uL (4.30-5.70) 4.66 x10^6/uL (4.30-5.70) Hemoglobin 15.2 g/dL (13.0-17.5) 15.3 g/dL (13.0-17.5) Hematocrit 45.6 % (39.0-53.0) 45.4 % (39.0-53.0) Mean Corpuscular Volume 98 fL (79-100) 97 fL (79-100) Mean Corpuscular Hemoglobin 33 pg (25-35) 33 pg (25-35) Mean Corpuscular Hemoglobin Concent 33 g/dL (31-37) 34 g/dL (31-37) Red Cell Distribution Width 15.0 % (11.5-14.5) 15.0 % (11.5-14.5) Platelet Count 140 x10^3/uL (140-400) 148 x10^3/uL (140-400) Neutrophils (%) (Auto) 91 % (31-73) 92 % (31-73) Lymphocytes (%) (Auto) 3 % (24-48) 2 % (24-48) Monocytes (%) (Auto) 6 % (0-9) 6 % (0-9) Eosinophils (%) (Auto) 0 % (0-3) 0 % (0-3) Basophils (%) (Auto) 0 % (0-3) 0 % (0-3) Neutrophils # (Auto) 8.7 x10^3/uL (1.8-7.7) 9.5 x10^3/uL (1.8-7.7) Lymphocytes # (Auto) 0.3 x10^3/uL (1.0-4.8) 0.2 x10^3/uL (1.0-4.8) Monocytes # (Auto) 0.5 x10^3/uL (0.0-1.1) 0.6 x10^3/uL (0.0-1.1) Eosinophils # (Auto) 0.0 x10^3/uL (0.0-0.7) 0.0 x10^3/uL (0.0-0.7) Basophils # (Auto) 0.0 x10^3/uL (0.0-0.2) 0.0 x10^3/uL (0.0-0.2) Sodium Level 142 mmol/L (136-145) 142 mmol/L (136-145) Potassium Level 3.7 mmol/L (3.5-5.1) 3.6 mmol/L (3.5-5.1) Chloride Level 106 mmol/L (98-107) 105 mmol/L (98-107) Carbon Dioxide Level 30 mmol/L (21-32) 30 mmol/L (21-32) Anion Gap 6 (6-14) 7 (6-14) Blood Urea Nitrogen 30 mg/dL (8-26) 32 mg/dL (8-26) Creatinine 1.5 mg/dL (0.7-1.3) 1.5 mg/dL (0.7-1.3) Estimated GFR (Cockcroft-Gault) 57.4 57.4 BUN/Creatinine Ratio 20 (6-20) 21 (6-20) Glucose Level 146 mg/dL (70-99) 140 mg/dL (70-99) Calcium Level 9.0 mg/dL (8.5-10.1) 8.8 mg/dL (8.5-10.1) Total Bilirubin 0.3 mg/dL (0.2-1.0) 0.3 mg/dL (0.2-1.0) Aspartate Amino Transf (AST/SGOT) 12 U/L (15-37) 12 U/L (15-37) Alanine Aminotransferase (ALT/SGPT) 13 U/L (16-63) 12 U/L (16-63) Alkaline Phosphatase 84 U/L (46-116) 87 U/L (46-116) Total Protein 6.3 g/dL (6.4-8.2) 6.3 g/dL (6.4-8.2) Albumin 2.6 g/dL (3.4-5.0) 2.6 g/dL (3.4-5.0) Albumin/Globulin Ratio 0.7 (1.0-1.7) 0.7 (1.0-1.7) Laboratory Tests Test 01/18/19 03:55 White Blood Count 10.4 x10^3/uL (4.0-11.0) Red Blood Count 4.66 x10^6/uL (4.30-5.70) Hemoglobin 15.3 g/dL (13.0-17.5) Hematocrit 45.4 % (39.0-53.0) Mean Corpuscular Volume 97 fL (79-100) Mean Corpuscular Hemoglobin 33 pg (25-35) Mean Corpuscular Hemoglobin Concent 34 g/dL (31-37) Red Cell Distribution Width 15.0 % (11.5-14.5) Platelet Count 148 x10^3/uL (140-400) Neutrophils (%) (Auto) 92 % (31-73) Lymphocytes (%) (Auto) 2 % (24-48) Monocytes (%) (Auto) 6 % (0-9) Eosinophils (%) (Auto) 0 % (0-3) Basophils (%) (Auto) 0 % (0-3) Neutrophils # (Auto) 9.5 x10^3/uL (1.8-7.7) Lymphocytes # (Auto) 0.2 x10^3/uL (1.0-4.8) Monocytes # (Auto) 0.6 x10^3/uL (0.0-1.1) Eosinophils # (Auto) 0.0 x10^3/uL (0.0-0.7) Basophils # (Auto) 0.0 x10^3/uL (0.0-0.2) Sodium Level 142 mmol/L (136-145) Potassium Level 3.6 mmol/L (3.5-5.1) Chloride Level 105 mmol/L (98-107) Carbon Dioxide Level 30 mmol/L (21-32) Anion Gap 7 (6-14) Blood Urea Nitrogen 32 mg/dL (8-26) Creatinine 1.5 mg/dL (0.7-1.3) Estimated GFR (Cockcroft-Gault) 57.4 BUN/Creatinine Ratio 21 (6-20) Glucose Level 140 mg/dL (70-99) Calcium Level 8.8 mg/dL (8.5-10.1) Total Bilirubin 0.3 mg/dL (0.2-1.0) Aspartate Amino Transf (AST/SGOT) 12 U/L (15-37) Alanine Aminotransferase (ALT/SGPT) 12 U/L (16-63) Alkaline Phosphatase 87 U/L (46-116) Total Protein 6.3 g/dL (6.4-8.2) Albumin 2.6 g/dL (3.4-5.0) Albumin/Globulin Ratio 0.7 (1.0-1.7) Medications Active Scripts Medications Dose Route/Sig Max Daily Dose Days Date Category Dose Instructions Azithromycin Tablet (Azithromycin) 250 Mg Tablet 1 Pkg PO UD 10/14/16 Rx Advair 250-50 Diskus (Fluticasone/Salmeterol) 1 Each Disk.w.dev 1 Puff IH BID 10/13/16 Rx Ipratropium Sims 0.2 Mg/1 Ml Solution 1 Vial NEB QID PRN 10/13/16 Rx Doxycycline Hyclate 100 Mg Tablet 1 Tab PO BID 10/13/16 Rx NEXT DOSE DUE AT BEDTIME TONIGHT Medrol (Methylprednisolone) 4 Mg Tab.ds.pk 1 Pkg PO UD 10/13/16 Rx Albuterol Sulfate Neb Soln (Albuterol Sulfate) 0.63 Mg/3 Ml Vial.neb 0.63 Mg NEB PRN Q4HRS PRN 30 10/13/16 Rx NEEDED Zocor (Simvastatin) 20 Mg Tablet 20 Mg PO HS 10/27/14 Reported NEXT DOSE DUE TONIGHT AT BEDTIME Isosorbide Mononitrate Er (Isosorbide Mononitrate) 60 Mg Tab.er.24h 60 Mg PO DAILY 10/27/14 Reported NEXT DOSE DUE IN AM Lisinopril 40 Mg Tablet 40 Mg PO DAILY 04/03/14 Reported NEXT DOSE DUE IN AM Carvedilol 25 Mg Tablet 25 Mg PO BIDWMEALS 04/03/14 Reported NEXT DOSE DUE AT DINNER THIS EVENING Clonidine Hcl 0.1 Mg Tablet 0.1 Mg PO BID 04/03/14 Reported NEXT DOSE DUE AT BEDTIME TONIGHT Hydralazine Hcl 50 Mg Tablet 50 Mg PO TID 02/25/14 Reported NEXT DOSE DUE AT BEDTIME TONIGHT Amlodipine Besylate 10 Mg Tablet 10 Mg PO DAILY 06/13/13 Reported NEXT DOSE DUE IN AM Furosemide 40 Mg Tablet 40 Mg PO DAILY 06/13/13 Reported NEXT DOSE DUE IN AM Potassium Chloride 10 Meq Tab.er.prt 20 Meq PO DAILY 06/13/13 Reported NEXT DOSE DUE IN AM Comments CXR 01/17 RUL ATELECTASIS ,worse echo The systolic function is mildly impaired. EF 40-45% There is global hypokinesis of the left ventricle. The septal motion is suggestive of conduction defect. Doppler and Color Flow revealed moderate aortic regurgitation. Impression . 1. Acute hypoxic respiratory failure secondary to multifactorial etiologies including combination of underlying chronic obstructive pulmonary disease, right upper lobe atelectasis. No evidence of thromboembolic disease. Possible CHF 01/13 2. Long history of tobacco use, suspect underlying chronic obstructive pulmonary disease. Along with cocaine, marijuana and alcohol abuse. 3. Abnormal CT chest with right upper lobe collapse. Likely postobstructive. Possibility of endobronchial lesion cannot be ruled out. Mucous plug would be another consideration. 4. Cardiomyopathy, mod AI Plan . 1. 02 titration 2. VQ scan neg for PE 3. cxr ,Persistent RUL collapse 4. Follow Cardiology recommendation reg low EF and mod AI 5. Monitor blood pressure closely. 6. bronchodilators. 7. Smoking cessation counseling provided. 8. Discussed with RN and pt. 9. will need Bronch for persistent RUL atelectasis .scheduled today. All R/B explained. he agrees SHARON ROJAS MD Jan 18, 2019 09:46
--- NOTE | 2019-01-18 10:34 | PDOC ---
CARDIO Progress Notes Date and Time Date of Service 01/18/2019 Time of Evaluation 1020 Subjective Subjective: No Chest Pain, No Palpitations, Other (SOA better ) Vitals Vitals Vital Signs Date Time Temp Pulse Resp B/P (MAP) Pulse Ox O2 Delivery O2 Flow Rate FiO2 01/18/19 07:56 93 Nasal Cannula 3.0 01/18/19 07:00 97.7 60 20 158/93 (114) 97.7 Weight Weight [ ] Input and Output Intake and Output Intake and Output 01/18/19 07:00 Intake Total 1350 ml Balance 1350 ml Intake Oral 1250 ml IV Total 100 ml # Voids 8 # Bowel Movements 1 Laboratory Labs Laboratory Tests Test 01/18/19 03:55 White Blood Count 10.4 x10^3/uL (4.0-11.0) Red Blood Count 4.66 x10^6/uL (4.30-5.70) Hemoglobin 15.3 g/dL (13.0-17.5) Hematocrit 45.4 % (39.0-53.0) Mean Corpuscular Volume 97 fL (79-100) Mean Corpuscular Hemoglobin 33 pg (25-35) Mean Corpuscular Hemoglobin Concent 34 g/dL (31-37) Red Cell Distribution Width 15.0 % (11.5-14.5) Platelet Count 148 x10^3/uL (140-400) Neutrophils (%) (Auto) 92 % (31-73) Lymphocytes (%) (Auto) 2 % (24-48) Monocytes (%) (Auto) 6 % (0-9) Eosinophils (%) (Auto) 0 % (0-3) Basophils (%) (Auto) 0 % (0-3) Neutrophils # (Auto) 9.5 x10^3/uL (1.8-7.7) Lymphocytes # (Auto) 0.2 x10^3/uL (1.0-4.8) Monocytes # (Auto) 0.6 x10^3/uL (0.0-1.1) Eosinophils # (Auto) 0.0 x10^3/uL (0.0-0.7) Basophils # (Auto) 0.0 x10^3/uL (0.0-0.2) Sodium Level 142 mmol/L (136-145) Potassium Level 3.6 mmol/L (3.5-5.1) Chloride Level 105 mmol/L (98-107) Carbon Dioxide Level 30 mmol/L (21-32) Anion Gap 7 (6-14) Blood Urea Nitrogen 32 mg/dL (8-26) Creatinine 1.5 mg/dL (0.7-1.3) Estimated GFR (Cockcroft-Gault) 57.4 BUN/Creatinine Ratio 21 (6-20) Glucose Level 140 mg/dL (70-99) Calcium Level 8.8 mg/dL (8.5-10.1) Total Bilirubin 0.3 mg/dL (0.2-1.0) Aspartate Amino Transf (AST/SGOT) 12 U/L (15-37) Alanine Aminotransferase (ALT/SGPT) 12 U/L (16-63) Alkaline Phosphatase 87 U/L (46-116) Total Protein 6.3 g/dL (6.4-8.2) Albumin 2.6 g/dL (3.4-5.0) Albumin/Globulin Ratio 0.7 (1.0-1.7) Physical Exam HEENT: Neck Supple W Full Motion Chest: Symmetric LUNGS: Other (upper rhonchi) Heart: RRR (SR with intermittent PVCs) Abdomen: Soft N/T Extremities: No Calf Tenderness, Other (trace LE edema) Neurology: alert, oriented, follow commands Assessment Assessment 1. Asymptomatic SB: chronic LBBB with intermittent AIVR 2. Dyspnea: mainly due to RUL collapse with possible endobronchial mass. Bronch planned for today 3. Substance abuse: UDS+cocaine 4. NICM: last EF 35% and now better at 40-45% 5. Chronic systolic CHF: clinically compensated 6. HTN: labile being NPO for bronch 7. CKD: Cr stable 9. Hx of noncompliance 10. COPD with continued tobaccoism 11. Moderate AI Recommendations 1. Continue Toprol and secondary prevention measures. 2. Continue BP control with hydralazine, Imdur, ACEi 3. Smoking and cocaine cessation reinforced. He has refused AICD in the past. 4. Check Mg. Continue lasix therapy. LORRAINE VILLEGAS APRN Jan 18, 2019 10:34
[2019-01-18] MEDS: ENOXAPARIN 40 MG/0.4 ML SYRINGE. SQ SCH (11:00)
[2019-01-18] MEDS: VANCOMYCIN PER PHARMACY MC PRN ×2 (11:12→11:16)
--- NOTE | 2019-01-18 11:25 | PDOC ---
[employer] PROGRESS NOTE Chief Complaint Chief Complaint COPD exacerbation Possible lung mass Hypoxia Substance abuse History of Present Illness History of Present Illness 01/18/19 Pt seen and examined with nasal cannula 3.0 PT is scheduled for a bronchoscopy today Pt is feeling better and wants to be discharged as soon as possible. We explained to him that it will be up to Dr. Flores if he can go home today or tomorrow. EF = 40-45% LEFTY RN 01/17/19 Pt seen and examined at bedside Had CXR completed today Bronchoscopy scheduled for Thursday Charts and labs reviewed 01/16/19 Pt seen and examined at bedside Out of ICU, in better condition EF = 40-45% Bronchoscopy scheduled for Thursday Right sided atelectasis based on pulmonary progress note Charts and labs reviewed 01/15/19 Pt seen and examined Pt has been feeling better and getting more sleep on the floor. He is glad to be out of the ICU and is breathing better. Pt recieving O2 via nasal cannula He still has some wheezing and a cough Ejection fraction 35% Appetite has improved Scheduled bronch for Thursday LEFTY RN 01/14/19 Pt was seen and examined in the ICU Pt was on the commode Receiving O2 via Ventimask Charts and labs reviewed EF = 35% with cardiomegaly Continues to be hypoxia Crackles heard on lung exam ABG pH is 7.41 D/w RN 01/13/19 Pt was seen and examined in the ICU Receiving O2 via Ventimask EF = 35% with cardiomegaly Continues to be hypoxia Crackles heard on lung exam Cr was 1.[address] with contrast could not be performed V/Q scan for possible PE Vitals/I&O Vitals/I&O: Vital Signs Date Time Temp Pulse Resp B/P (MAP) Pulse Ox O2 Delivery O2 Flow Rate FiO2 01/18/19 07:56 93 Nasal Cannula 3.0 01/18/19 07:00 97.7 60 20 158/93 (114) 97.7 I & O 01/17/19 01/17/19 01/18/19 15:00 23:00 07:00 Intake Total 550 ml 800 ml 0 ml Balance 550 ml 800 ml 0 ml Physical Exam Physical Exam: General: Alert, No acute distress Lungs: Crackles (bases) Cardiovascular: S1, S2 Abdomen: Soft, Non-tender Neuro Exam: Alert Extremities: No Edema General: Alert, Oriented X3, Cooperative, mild distress Heart: Regular rate Lungs: Crackles (bases) Abdomen: Normal bowel sounds Extremities: No clubbing, No cyanosis, Other (1+ bilateral LE pitting edema) Skin: No rashes Labs Labs: Laboratory Tests Test 01/18/19 03:55 White Blood Count 10.4 x10^3/uL (4.0-11.0) Red Blood Count 4.66 x10^6/uL (4.30-5.70) Hemoglobin 15.3 g/dL (13.0-17.5) Hematocrit 45.4 % (39.0-53.0) Mean Corpuscular Volume 97 fL (79-100) Mean Corpuscular Hemoglobin 33 pg (25-35) Mean Corpuscular Hemoglobin Concent 34 g/dL (31-37) Red Cell Distribution Width 15.0 % (11.5-14.5) Platelet Count 148 x10^3/uL (140-400) Neutrophils (%) (Auto) 92 % (31-73) Lymphocytes (%) (Auto) 2 % (24-48) Monocytes (%) (Auto) 6 % (0-9) Eosinophils (%) (Auto) 0 % (0-3) Basophils (%) (Auto) 0 % (0-3) Neutrophils # (Auto) 9.5 x10^3/uL (1.8-7.7) Lymphocytes # (Auto) 0.2 x10^3/uL (1.0-4.8) Monocytes # (Auto) 0.6 x10^3/uL (0.0-1.1) Eosinophils # (Auto) 0.0 x10^3/uL (0.0-0.7) Basophils # (Auto) 0.0 x10^3/uL (0.0-0.2) Sodium Level 142 mmol/L (136-145) Potassium Level 3.6 mmol/L (3.5-5.1) Chloride Level 105 mmol/L (98-107) Carbon Dioxide Level 30 mmol/L (21-32) Anion Gap 7 (6-14) Blood Urea Nitrogen 32 mg/dL (8-26) Creatinine 1.5 mg/dL (0.7-1.3) Estimated GFR (Cockcroft-Gault) 57.4 BUN/Creatinine Ratio 21 (6-20) Glucose Level 140 mg/dL (70-99) Calcium Level 8.8 mg/dL (8.5-10.1) Magnesium Level 2.5 mg/dL (1.8-2.4) Total Bilirubin 0.3 mg/dL (0.2-1.0) Aspartate Amino Transf (AST/SGOT) 12 U/L (15-37) Alanine Aminotransferase (ALT/SGPT) 12 U/L (16-63) Alkaline Phosphatase 87 U/L (46-116) Total Protein 6.3 g/dL (6.4-8.2) Albumin 2.6 g/dL (3.4-5.0) Albumin/Globulin Ratio 0.7 (1.0-1.7) Review of Systems Review of Systems: Denies pain Denies n/v/d Assessment and Plan Assessmemt and Plan Problems Medical Problems: (1) Acute on chronic combined systolic and diastolic heart failure Status: Acute (2) Acute respiratory failure with hypoxia Status: Acute (3) Bradycardia Status: Acute (4) CKD (chronic kidney disease), stage III Status: Chronic (5) COPD exacerbation Status: Acute (6) Dyspnea Status: Acute (7) HTN (hypertension) Status: Chronic (8) LBBB (left bundle branch block) Status: Chronic (9) Left flank pain Status: Acute (10) Lung mass Status: Acute (11) NICM (nonischemic cardiomyopathy) Status: Chronic (12) Pneumonia Status: Acute (13) Substance abuse Status: Acute Assessment COPD exacerbation CHF Pneumonia Substance abuse Plan Await bronchoscopy report Discharge okay with pulmonology Titrate down O2 nasal canula Steroids DVT prophylaxis Labs Pulmonary following Full code Comment Review of Relevant I have reviewed the following items rishi (where applicable) has been applied. KINA CONTRERAS III DO Jan 18, 2019 11:25
[2019-01-18] MEDS ORDERED: IV RINGERS,LACTATED 1000ML 1,000 ML IV ONE (11:45)
[2019-01-18] MEDS ORDERED: PROPOFOL 20 ML IV ONE (11:55)
--- NOTE | 2019-01-18 12:26 | OP ---
DATE OF SURGERY: BRONCHOSCOPY NOTE INDICATIONS: Right upper lobe collapse, mucus plug versus endobronchial lesion. DESCRIPTION OF PROCEDURE: Informed consent was obtained from the patient. All risks and benefits were explained. He agreed to proceed with the procedure. Propofol was used for sedation by Anesthesia. Bronch was introduced through the right nostril. The upper airway was passed. Thick white secretions seen in the upper airway. Vocal cords move equally with respiration. Tiny polyps were seen at the vocal cords. Bronch was introduced through the vocal cords into the trachea. Minimal white secretions seen in the distal trachea. Valerie was sharp. The right lung was examined. There were thick slimy secretions causing near occlusion of all the subsegments of the right upper lobe bronchus. Saline irrigation done and multiple passes were made through the airway to remove a very thick slimy secretions. Once the secretions were removed, airway was examined, no endobronchial lesions seen. There was some bronchomalacia observed in the right upper lobe. Right middle lobe was patent, right lower lobe was patent. No significant secretions seen. Left lung was examined. All subsegments of left upper lobe, lingula and left lower lobe was patent as well. No significant secretions seen. IMPRESSION: 1. Thick slimy secretions seen in all the subsegment of the right upper lobe causing occlusion of all the subsegments. Therapeutic bronchoscope performed. All secretions were removed. Patency of the airway achieved. No endobronchial lesions seen. No specimens obtained. 2. Bronchomalacia involving the right upper lobe. 3. Minimal polyp seen at the vocal cord. 4. The patient tolerated the procedure well. The patient could be discharged home in the next 24 hours. SHARON ROJAS MD DR: MAYCO/yumiko JOB#: [id number] / [id number]
[2019-01-18 12:51] VITALS: BP 169/108
[2019-01-18 15:00] VITALS: BP 148/86
--- NOTE | 2019-01-18 15:26 | NUR ---
SS following up with discharge planning. PT recommended home independent. SS will continue to follow for discharge planning.
[2019-01-18 19:00] VITALS: BP 154/91
[2019-01-18] MEDS: SIMVASTATIN 20 MG TABLET PO SCH (20:42)
[2019-01-18 23:04] VITALS: BP 152/80
[2019-01-19] MEDS: VANCOMYCIN 1.25 GM in IV NORMAL SALINE 250ML 250 ML IV SCH (02:36)
[2019-01-19 03:00] VITALS: BP 151/93
[2019-01-19 04:17] LABS: BASO % 0 % (0-3); EOS % 0 % (0-3); HEMATOCRIT 46.3 % (39.0-53.0); HEMOGLOBIN 15.6 g/dL (13.0-17.5); LYMPH # 0.2 x10^3/uL (1.0-4.8); LYMPH % 2 % (24-48); MEAN CORPUSCULAR HEMOGLOBIN 33 pg (25-35); MEAN CORPUSCULAR HGB CONC 34 g/dL (31-37); MEAN CORPUSCULAR VOLUME 97 fL (79-100); MONO # 0.9 x10^3/uL (0.0-1.1); MONO % 8 % (0-9); NEUT # 9.8 x10^3/uL (1.8-7.7); NEUT % 90 % (31-73); PLATELET COUNT 150 x10^3/uL (140-400); RED BLOOD COUNT 4.76 x10^6/uL (4.30-5.70); RED CELL DISTRIBUTION WIDTH 15.2 % (11.5-14.5); WHITE BLOOD COUNT 10.9 x10^3/uL (4.0-11.0)
[2019-01-19 04:44] LABS: ALBUMIN 2.5 g/dL (3.4-5.0); ALBUMIN/GLOBULIN RATIO 0.7 (1.0-1.7); CALCIUM 8.8 mg/dL (8.5-10.1); CREATININE 1.6 mg/dL (0.7-1.3); GFR 53.3; POTASSIUM 3.9 mmol/L (3.5-5.1); TOTAL BILIRUBIN 0.3 mg/dL (0.2-1.0); TOTAL PROTEIN 5.9 g/dL (6.4-8.2)
[2019-01-19] MEDS: methylPREDNISolone SOD SUCC PF 125 MG/2 ML VIAL. IV SCH (05:48)
[2019-01-19] MEDS: PIPERACILLIN/TAZOBACTAM 3.375 GM in IV NORMAL SALINE 50ML 50 ML IV SCH (05:49)
[2019-01-19 07:07] VITALS: BP 164/98
[2019-01-19] MEDS: IPRATRPIUM/ALBUTEROL 0.5/2.5MG 3 ML NEBU. NEB SCH ×3 (07:36→15:22)
[2019-01-19] MEDS: BUDESONIDE 0.5 MG/2 ML NEBU. NEB SCH (07:36)
[2019-01-19] MEDS: LACTOBACILLUS RHAMNOSUS GG 1 CAPSULE. PO SCH (08:56)
[2019-01-19] MEDS: FUROSEMIDE 40 MG TABLET. PO SCH (08:57)
[2019-01-19] MEDS: POTASSIUM CHLORIDE 10 MEQ TABLET.ER. PO SCH (08:57)
[2019-01-19] MEDS: LISINOPRIL 20 MG TABLET PO SCH (08:57)
[2019-01-19] MEDS: hydrALAZINE 25 MG TABLET PO SCH (08:57)
[2019-01-19] MEDS: cloNIDine HCL 0.1 MG TABLET PO SCH (08:58)
[2019-01-19] MEDS: amLODIPine BESYLATE 10 MG TABLET PO SCH (08:58)
[2019-01-19] MEDS: METOPROLOL SUCC 24HR ER 50 MG TAB.ER.24H. PO SCH (08:58)
[2019-01-19] MEDS: ISOSORBIDE MONONITRATE ER 30 MG TAB.ER.24H PO SCH (08:59)
--- NOTE | 2019-01-19 09:29 | PDOC ---
PULMONARY PROGRESS NOTES Subjective sob better, has occ cough, no sputum, no pain Vitals Vital Signs Date Time Temp Pulse Resp B/P (MAP) Pulse Ox O2 Delivery O2 Flow Rate FiO2 01/19/19 08:59 87 164/98 01/19/19 08:13 Nasal Cannula 1.5 01/19/19 07:36 95 01/19/19 07:07 98.9 18 98.9 General: Alert, No acute distress Lungs: Crackles (bases) Cardiovascular: S1, S2 Abdomen: Soft, Non-tender Neuro Exam: Alert Extremities: No Edema Labs Laboratory Tests Test 01/18/19 03:55 01/19/19 03:45 White Blood Count 10.4 x10^3/uL (4.0-11.0) 10.9 x10^3/uL (4.0-11.0) Red Blood Count 4.66 x10^6/uL (4.30-5.70) 4.76 x10^6/uL (4.30-5.70) Hemoglobin 15.3 g/dL (13.0-17.5) 15.6 g/dL (13.0-17.5) Hematocrit 45.4 % (39.0-53.0) 46.3 % (39.0-53.0) Mean Corpuscular Volume 97 fL (79-100) 97 fL (79-100) Mean Corpuscular Hemoglobin 33 pg (25-35) 33 pg (25-35) Mean Corpuscular Hemoglobin Concent 34 g/dL (31-37) 34 g/dL (31-37) Red Cell Distribution Width 15.0 % (11.5-14.5) 15.2 % (11.5-14.5) Platelet Count 148 x10^3/uL (140-400) 150 x10^3/uL (140-400) Neutrophils (%) (Auto) 92 % (31-73) 90 % (31-73) Lymphocytes (%) (Auto) 2 % (24-48) 2 % (24-48) Monocytes (%) (Auto) 6 % (0-9) 8 % (0-9) Eosinophils (%) (Auto) 0 % (0-3) 0 % (0-3) Basophils (%) (Auto) 0 % (0-3) 0 % (0-3) Neutrophils # (Auto) 9.5 x10^3/uL (1.8-7.7) 9.8 x10^3/uL (1.8-7.7) Lymphocytes # (Auto) 0.2 x10^3/uL (1.0-4.8) 0.2 x10^3/uL (1.0-4.8) Monocytes # (Auto) 0.6 x10^3/uL (0.0-1.1) 0.9 x10^3/uL (0.0-1.1) Eosinophils # (Auto) 0.0 x10^3/uL (0.0-0.7) 0.0 x10^3/uL (0.0-0.7) Basophils # (Auto) 0.0 x10^3/uL (0.0-0.2) 0.0 x10^3/uL (0.0-0.2) Sodium Level 142 mmol/L (136-145) 143 mmol/L (136-145) Potassium Level 3.6 mmol/L (3.5-5.1) 3.9 mmol/L (3.5-5.1) Chloride Level 105 mmol/L (98-107) 105 mmol/L (98-107) Carbon Dioxide Level 30 mmol/L (21-32) 30 mmol/L (21-32) Anion Gap 7 (6-14) 8 (6-14) Blood Urea Nitrogen 32 mg/dL (8-26) 41 mg/dL (8-26) Creatinine 1.5 mg/dL (0.7-1.3) 1.6 mg/dL (0.7-1.3) Estimated GFR (Cockcroft-Gault) 57.4 53.3 BUN/Creatinine Ratio 21 (6-20) 26 (6-20) Glucose Level 140 mg/dL (70-99) 138 mg/dL (70-99) Calcium Level 8.8 mg/dL (8.5-10.1) 8.8 mg/dL (8.5-10.1) Magnesium Level 2.5 mg/dL (1.8-2.4) Total Bilirubin 0.3 mg/dL (0.2-1.0) 0.3 mg/dL (0.2-1.0) Aspartate Amino Transf (AST/SGOT) 12 U/L (15-37) 11 U/L (15-37) Alanine Aminotransferase (ALT/SGPT) 12 U/L (16-63) 12 U/L (16-63) Alkaline Phosphatase 87 U/L (46-116) 67 U/L (46-116) Total Protein 6.3 g/dL (6.4-8.2) 5.9 g/dL (6.4-8.2) Albumin 2.6 g/dL (3.4-5.0) 2.5 g/dL (3.4-5.0) Albumin/Globulin Ratio 0.7 (1.0-1.7) 0.7 (1.0-1.7) Laboratory Tests Test 01/19/19 03:45 White Blood Count 10.9 x10^3/uL (4.0-11.0) Red Blood Count 4.76 x10^6/uL (4.30-5.70) Hemoglobin 15.6 g/dL (13.0-17.5) Hematocrit 46.3 % (39.0-53.0) Mean Corpuscular Volume 97 fL (79-100) Mean Corpuscular Hemoglobin 33 pg (25-35) Mean Corpuscular Hemoglobin Concent 34 g/dL (31-37) Red Cell Distribution Width 15.2 % (11.5-14.5) Platelet Count 150 x10^3/uL (140-400) Neutrophils (%) (Auto) 90 % (31-73) Lymphocytes (%) (Auto) 2 % (24-48) Monocytes (%) (Auto) 8 % (0-9) Eosinophils (%) (Auto) 0 % (0-3) Basophils (%) (Auto) 0 % (0-3) Neutrophils # (Auto) 9.8 x10^3/uL (1.8-7.7) Lymphocytes # (Auto) 0.2 x10^3/uL (1.0-4.8) Monocytes # (Auto) 0.9 x10^3/uL (0.0-1.1) Eosinophils # (Auto) 0.0 x10^3/uL (0.0-0.7) Basophils # (Auto) 0.0 x10^3/uL (0.0-0.2) Sodium Level 143 mmol/L (136-145) Potassium Level 3.9 mmol/L (3.5-5.1) Chloride Level 105 mmol/L (98-107) Carbon Dioxide Level 30 mmol/L (21-32) Anion Gap 8 (6-14) Blood Urea Nitrogen 41 mg/dL (8-26) Creatinine 1.6 mg/dL (0.7-1.3) Estimated GFR (Cockcroft-Gault) 53.3 BUN/Creatinine Ratio 26 (6-20) Glucose Level 138 mg/dL (70-99) Calcium Level 8.8 mg/dL (8.5-10.1) Total Bilirubin 0.3 mg/dL (0.2-1.0) Aspartate Amino Transf (AST/SGOT) 11 U/L (15-37) Alanine Aminotransferase (ALT/SGPT) 12 U/L (16-63) Alkaline Phosphatase 67 U/L (46-116) Total Protein 5.9 g/dL (6.4-8.2) Albumin 2.5 g/dL (3.4-5.0) Albumin/Globulin Ratio 0.7 (1.0-1.7) Medications Active Scripts Medications Dose Route/Sig Max Daily Dose Days Date Category Dose Instructions Azithromycin Tablet (Azithromycin) 250 Mg Tablet 1 Pkg PO UD 10/14/16 Rx Advair 250-50 Diskus (Fluticasone/Salmeterol) 1 Each Disk.w.dev 1 Puff IH BID 10/13/16 Rx Ipratropium [place] 0.2 Mg/1 Ml Solution 1 Vial NEB QID PRN 10/13/16 Rx Doxycycline Hyclate 100 Mg Tablet 1 Tab PO BID 10/13/16 Rx NEXT DOSE DUE AT BEDTIME TONIGHT Medrol (Methylprednisolone) 4 Mg Tab.ds.pk 1 Pkg PO UD 10/13/16 Rx Albuterol Sulfate Neb Soln (Albuterol Sulfate) 0.63 Mg/3 Ml Vial.neb 0.63 Mg NEB PRN Q4HRS PRN 30 10/13/16 Rx NEEDED Zocor (Simvastatin) 20 Mg Tablet 20 Mg PO HS 10/27/14 Reported NEXT DOSE DUE TONIGHT AT BEDTIME Isosorbide Mononitrate Er (Isosorbide Mononitrate) 60 Mg Tab.er.24h 60 Mg PO DAILY 10/27/14 Reported NEXT DOSE DUE IN AM Lisinopril 40 Mg Tablet 40 Mg PO DAILY 04/03/14 Reported NEXT DOSE DUE IN AM Carvedilol 25 Mg Tablet 25 Mg PO BIDWMEALS 04/03/14 Reported NEXT DOSE DUE AT DINNER THIS EVENING Clonidine Hcl 0.1 Mg Tablet 0.1 Mg PO BID 04/03/14 Reported NEXT DOSE DUE AT BEDTIME TONIGHT Hydralazine Hcl 50 Mg Tablet 50 Mg PO TID 02/25/14 Reported NEXT DOSE DUE AT BEDTIME TONIGHT Amlodipine Besylate 10 Mg Tablet 10 Mg PO DAILY 06/13/13 Reported NEXT DOSE DUE IN AM Furosemide 40 Mg Tablet 40 Mg PO DAILY 06/13/13 Reported NEXT DOSE DUE IN AM Potassium Chloride 10 Meq Tab.er.prt 20 Meq PO DAILY 06/13/13 Reported NEXT DOSE DUE IN AM Comments CXR 01/19 RUL ATELECTASIS ,resolved echo The systolic function is mildly impaired. EF 40-45% There is global hypokinesis of the left ventricle. The septal motion is suggestive of conduction defect. Doppler and Color Flow revealed moderate aortic regurgitation. Impression . 1. Acute hypoxic respiratory failure secondary to multifactorial etiologies including combination of underlying chronic obstructive pulmonary disease, right upper lobe atelectasis. No evidence of thromboembolic disease. Possible CHF 01/13 2. Long history of tobacco use, suspect underlying chronic obstructive pulmonary disease. Along with cocaine, marijuana and alcohol abuse. 3. Abnormal CT chest with right upper lobe collapse. s/p Bronch/ Mucous plug removed. no endobronchial lesion 4. Cardiomyopathy, mod AI Plan . 1. 02 titration 2. VQ scan neg for PE 3. cxr ,01/19 RUL collapse resolved post bronch 4. Follow Cardiology recommendation reg low EF and mod AI 5. Monitor blood pressure closely. 6. bronchodilators. 7. Smoking cessation counseling provided. 8. Discussed with RN and pt. 9. ok with [facility] SHARON ROJAS MD Jan 19, 2019 09:29
[2019-01-19] MEDS: VANCOMYCIN PER PHARMACY MC PRN (09:53)
[2019-01-19 10:30] VITALS: BP 139/84
[2019-01-19] MEDS: ENOXAPARIN 40 MG/0.4 ML SYRINGE. SQ SCH (11:00)
--- NOTE | 2019-01-19 11:24 | PDOC ---
BRITTON MORAN ALTERATION INSPECTOR 01/19/19 1124: CARDIO Progress Notes Date and Time Date of Service 01/19/19 Time of Evaluation 1115 Subjective Subjective: No Chest Pain, No Palpitations, Other (SOA better) Vitals Vitals Vital Signs Date Time Temp Pulse Resp B/P (MAP) Pulse Ox O2 Delivery O2 Flow Rate FiO2 01/19/19 10:30 98.4 75 18 139/84 (102) 91 Nasal Cannula 3.0 98.4 Weight Weight [ ] Input and Output Intake and Output Intake and Output 01/19/19 06:59 Intake Total 2180 ml Balance 2180 ml Intake Oral 880 ml IV Total 1300 ml # Voids 6 # Bowel Movements 2 Laboratory Labs Laboratory Tests Test 01/19/19 03:45 White Blood Count 10.9 x10^3/uL (4.0-11.0) Red Blood Count 4.76 x10^6/uL (4.30-5.70) Hemoglobin 15.6 g/dL (13.0-17.5) Hematocrit 46.3 % (39.0-53.0) Mean Corpuscular Volume 97 fL (79-100) Mean Corpuscular Hemoglobin 33 pg (25-35) Mean Corpuscular Hemoglobin Concent 34 g/dL (31-37) Red Cell Distribution Width 15.2 % (11.5-14.5) Platelet Count 150 x10^3/uL (140-400) Neutrophils (%) (Auto) 90 % (31-73) Lymphocytes (%) (Auto) 2 % (24-48) Monocytes (%) (Auto) 8 % (0-9) Eosinophils (%) (Auto) 0 % (0-3) Basophils (%) (Auto) 0 % (0-3) Neutrophils # (Auto) 9.8 x10^3/uL (1.8-7.7) Lymphocytes # (Auto) 0.2 x10^3/uL (1.0-4.8) Monocytes # (Auto) 0.9 x10^3/uL (0.0-1.1) Eosinophils # (Auto) 0.0 x10^3/uL (0.0-0.7) Basophils # (Auto) 0.0 x10^3/uL (0.0-0.2) Sodium Level 143 mmol/L (136-145) Potassium Level 3.9 mmol/L (3.5-5.1) Chloride Level 105 mmol/L (98-107) Carbon Dioxide Level 30 mmol/L (21-32) Anion Gap 8 (6-14) Blood Urea Nitrogen 41 mg/dL (8-26) Creatinine 1.6 mg/dL (0.7-1.3) Estimated GFR (Cockcroft-Gault) 53.3 BUN/Creatinine Ratio 26 (6-20) Glucose Level 138 mg/dL (70-99) Calcium Level 8.8 mg/dL (8.5-10.1) Total Bilirubin 0.3 mg/dL (0.2-1.0) Aspartate Amino Transf (AST/SGOT) 11 U/L (15-37) Alanine Aminotransferase (ALT/SGPT) 12 U/L (16-63) Alkaline Phosphatase 67 U/L (46-116) Total Protein 5.9 g/dL (6.4-8.2) Albumin 2.5 g/dL (3.4-5.0) Albumin/Globulin Ratio 0.7 (1.0-1.7) Physical Exam HEENT: Neck Supple W Full Motion Chest: Symmetric LUNGS: Other (faint rhonchi) Heart: RRR (SR with intermittent PVCs) Abdomen: Soft N/T Extremities: No Edema, No Calf Tenderness Neurology: alert, oriented, follow commands Assessment Assessment 1. Asymptomatic SB: chronic LBBB 2. Dyspnea; bronch with thick secretions causing occlusion of all subsegments. No mass 3. Substance abuse: UDS+cocaine 4. NICM: last EF 35% and now better at 40-45% 5. Chronic systolic CHF: clinically compensated 6. HTN: better controlled 7. CKD: Cr stable 9. Hx of noncompliance 10. COPD with continued tobaccoism 11. Moderate AI Recommendations Secondary prevention measures. Optimization with ACEi, BB, Lasix therapy Smoking and cocaine cessation reinforced. Supportive care. May discharge from a CV standpoint Follow up with Dr. Laureano 03/03/19 at 1:30pm CLAUDE LAUREANO MD 01/19/19 1702: CARDIO Progress Notes Assessment Assessment The patient was seen and examined. 1. Asymptomatic SB: chronic LBBB. Stable. Continue present medications. 2. Dyspnea; bronch with thick secretions causing occlusion of all subsegments. No mass 3. Substance abuse: UDS+cocaine 4. NICM: last EF 35% and now better at 40-45% 5. Chronic systolic CHF: clinically compensated 6. HTN: better controlled 7. CKD: Cr stable 9. Hx of noncompliance 10. COPD with continued tobaccoism 11. Moderate AI Continue present cardiac treatments. We'll follow-up as an outpatient. BRITTON MORAN APRN Jan 19, 2019 11:24 CLAUDE LAUREANO MD Jan 19, 2019 17:02
--- NOTE | 2019-01-19 11:43 | PDOC ---
[facility] PROGRESS NOTE Chief Complaint Chief Complaint COPD exacerbation Possible lung mass Hypoxia Substance abuse History of Present Illness History of Present Illness 01/19/19 Pt seen and examined at bedside Nasal canula 1.5 Pt had bronchoscopy on 01/18 Bronch IMPRESSION: 1. Thick slimy secretions seen in all the subsegment of the right upper lobe causing occlusion of all the subsegments. Therapeutic bronchoscope performed. All secretions were removed. Patency of the airway achieved. No endobronchial lesions seen. No specimens obtained. 2. Bronchomalacia involving the right upper lobe. 3. Minimal polyp seen at the vocal cord. 4. The patient tolerated the procedure well. The patient could be discharged home in the next 24 hours. Charts and labs reviewed EF = 40-45% BUN is 41, up from 32 Cr is 1.6. up from 1.5 01/18/19 Pt seen and examined with nasal cannula 3.0 PT is scheduled for a bronchoscopy today Pt is feeling better and wants to be discharged as soon as possible. We explained to him that it will be up to Dr. Flores if he can go home today or tomorrow. EF = 40-45% LEFTY RN 01/17/19 Pt seen and examined at bedside Had CXR completed today Bronchoscopy scheduled for Thursday Charts and labs reviewed 01/16/19 Pt seen and examined at bedside Out of ICU, in better condition EF = 40-45% Bronchoscopy scheduled for Thursday Right sided atelectasis based on pulmonary progress note Charts and labs reviewed 01/15/19 Pt seen and examined Pt has been feeling better and getting more sleep on the floor. He is glad to be out of the ICU and is breathing better. Pt recieving O2 via nasal cannula He still has some wheezing and a cough Ejection fraction 35% Appetite has improved Scheduled bronch for Thursday LEFTY RN 01/14/19 Pt was seen and examined in the ICU Pt was on the commode Receiving O2 via Ventimask Charts and labs reviewed EF = 35% with cardiomegaly Continues to be hypoxia Crackles heard on lung exam ABG pH is 7.41 D/w RN 01/13/19 Pt was seen and examined in the ICU Receiving O2 via Ventimask EF = 35% with cardiomegaly Continues to be hypoxia Crackles heard on lung exam Cr was 1.[address] with contrast could not be performed V/Q scan for possible PE Vitals/I&O Vitals/I&O: Vital Signs Date Time Temp Pulse Resp B/P (MAP) Pulse Ox O2 Delivery O2 Flow Rate FiO2 01/19/19 10:30 98.4 75 18 139/84 (102) 91 Nasal Cannula 3.0 98.4 I & O 01/18/19 01/18/19 01/19/19 15:00 23:00 07:00 Intake Total 1140 ml 290 ml 750 ml Balance 1140 ml 290 ml 750 ml Physical Exam Physical Exam: General: Alert, No acute distress Lungs: Crackles (bases) Cardiovascular: S1, S2 Abdomen: Soft, Non-tender Neuro Exam: Alert Extremities: No Edema General: Alert, Oriented X3, Cooperative, mild distress Heart: Regular rate Lungs: Crackles (bases) Abdomen: Normal bowel sounds Extremities: No clubbing, No cyanosis, Other (1+ bilateral LE pitting edema) Skin: No rashes Labs Labs: Laboratory Tests Test 01/19/19 03:45 White Blood Count 10.9 x10^3/uL (4.0-11.0) Red Blood Count 4.76 x10^6/uL (4.30-5.70) Hemoglobin 15.6 g/dL (13.0-17.5) Hematocrit 46.3 % (39.0-53.0) Mean Corpuscular Volume 97 fL (79-100) Mean Corpuscular Hemoglobin 33 pg (25-35) Mean Corpuscular Hemoglobin Concent 34 g/dL (31-37) Red Cell Distribution Width 15.2 % (11.5-14.5) Platelet Count 150 x10^3/uL (140-400) Neutrophils (%) (Auto) 90 % (31-73) Lymphocytes (%) (Auto) 2 % (24-48) Monocytes (%) (Auto) 8 % (0-9) Eosinophils (%) (Auto) 0 % (0-3) Basophils (%) (Auto) 0 % (0-3) Neutrophils # (Auto) 9.8 x10^3/uL (1.8-7.7) Lymphocytes # (Auto) 0.2 x10^3/uL (1.0-4.8) Monocytes # (Auto) 0.9 x10^3/uL (0.0-1.1) Eosinophils # (Auto) 0.0 x10^3/uL (0.0-0.7) Basophils # (Auto) 0.0 x10^3/uL (0.0-0.2) Sodium Level 143 mmol/L (136-145) Potassium Level 3.9 mmol/L (3.5-5.1) Chloride Level 105 mmol/L (98-107) Carbon Dioxide Level 30 mmol/L (21-32) Anion Gap 8 (6-14) Blood Urea Nitrogen 41 mg/dL (8-26) Creatinine 1.6 mg/dL (0.7-1.3) Estimated GFR (Cockcroft-Gault) 53.3 BUN/Creatinine Ratio 26 (6-20) Glucose Level 138 mg/dL (70-99) Calcium Level 8.8 mg/dL (8.5-10.1) Total Bilirubin 0.3 mg/dL (0.2-1.0) Aspartate Amino Transf (AST/SGOT) 11 U/L (15-37) Alanine Aminotransferase (ALT/SGPT) 12 U/L (16-63) Alkaline Phosphatase 67 U/L (46-116) Total Protein 5.9 g/dL (6.4-8.2) Albumin 2.5 g/dL (3.4-5.0) Albumin/Globulin Ratio 0.7 (1.0-1.7) Review of Systems Review of Systems: Pt denies fever Pt denies n/v/d Assessment and Plan Assessmemt and Plan Problems Medical Problems: (1) Acute on chronic combined systolic and diastolic heart failure Status: Acute (2) Acute respiratory failure with hypoxia Status: Acute (3) Bradycardia Status: Acute (4) CKD (chronic kidney disease), stage III Status: Chronic (5) COPD exacerbation Status: Acute (6) Dyspnea Status: Acute (7) HTN (hypertension) Status: Chronic (8) LBBB (left bundle branch block) Status: Chronic (9) Left flank pain Status: Acute (10) Lung mass Status: Acute (11) NICM (nonischemic cardiomyopathy) Status: Chronic (12) Pneumonia Status: Acute (13) Substance abuse Status: Acute Assessment COPD exacerbation CHF Pneumonia Substance abuse Plan Discharge discharge if pt passes 6 min walk Titrate down O2 nasal canula Left prescriptions for O2, Medrol, and augmentin Meds per cardio DVT prophylaxis Appreciate subspecialist input Full code Comment Review of Relevant I have reviewed the following items rishi (where applicable) has been applied. Medications: Current Medications Medications (Trade) Dose Ordered Sig/Dex Route PRN Reason Start Time Stop Time Status Last Admin Dose Admin Ringer's Solution 1,000 ml @ 75 mls/hr 1X ONCE IV 01/18/19 11:45 01/19/19 01:04 DC 01/18/19 11:43 KINA CONTRERAS III DO Jan 19, 2019 11:43
--- NOTE | 2019-01-19 12:09 | DS ---
DATE OF DISCHARGE: 01/19/2019 ADMISSION DIAGNOSIS: Respiratory failure. DISCHARGE DIAGNOSES: Multifactorial respiratory failure including chronic obstructive pulmonary disease, atelectasis, probable mild congestive heart failure, tobacco abuse, mucus plugging. CONSULTS: Cardiology and Pulmonary. PROCEDURES: Bronchoscopy, which mainly showed mucus plugs with no endotracheal lesions. HOSPITAL COURSE: The patient is a pleasant middle-aged male who smokes too much. He also uses cocaine and marijuana. Basically, he presented with multifactorial respiratory failure. There was some concern he could have a mass in his lungs. We did consult Pulmonary. He did go for a bronchoscopy yesterday. Apparently that only showed mucus plugging. Today, I saw him and examined him, he is doing great. We planned to discharge with close outpatient followup. DISPOSITION: Home. ACTIVITY: As tolerated. DIET: Low sodium. MEDICATIONS: Please see the MRAD. TOTAL TIME: 32 minutes. ALMA ROSAL Jayne CONTRERAS DO DR: KALEB/yumiko JOB#: [id number] / [id number]
--- NOTE | 2019-01-19 12:48 | RAD ---
Examination: PORTABLE CHEST 1V History: Post bronchus, right upper lobe atelectasis Comparison/Correlation: 01/17/2019 to the chest x-ray exam Findings: Portable upright frontal view chest was obtained. Previously evident right atelectasis is noted in the diminished. Minimal residual atelectasis is suggested the medial right apical level. No pneumothorax. Heart size is enlarged but this may in part be technique related. Retrocardiac atelectasis is present. Mild pulmonary vascular congestion and interstitial thickening which may represent edema is again seen. Blunting of the left costophrenic angle noted. Impression: Notable decrease in atelectasis. Minimal residual atelectasis appears to be present. Small left pleural effusion. Pulmonary vasculature congestion. No significant change in retrocardiac left basilar aeration. Electronically signed by: Flex Donahue MD (01/19/2019 12:44 PM) [facility]
[2019-01-19 14:30] VITALS: BP 125/70
--- NOTE | 2019-01-19 14:31 | NUR ---
SS following up with discharge planning. Oxygen order received. SS phoned and faxed oxygen order and clinical to [facility], ; fax [phone]. SS provided pt's RN with oxygen tank for home. Discharge order on the chart.
--- NOTE | 2019-01-19 15:56 | NUR ---
Discharge Note: NEIL EWING [address] Discharge instructions and discharge home medications reviewed with Patient and a copy given. All questions have been answered and understanding verbalized. Patient refused home oxygen stating "I don't need this, I ain't leaving my house." The following instructions and handouts were given: CHF, COPD exac, sodium restriction Discontinued lines and drains: Peripheral IV intact. Patient discharged to Home or Self Care with Family Member via Wheelchair
== END 2019-01-19 15:50 | disposition home or self-care (01) | DRG 177 ==
LOC: ER 03:50 → 1 WEST ICU 05:11 → 2 NORTH 01-14 16:46
PROVIDERS: ADMIT Internal Medicine; ATTEND Internal Medicine
PROC: 0B948ZZ Drainage of Right Upper Lobe Bronchus, Via Natural or Artificial Opening Endoscopic (ICD-10-PCS; principal; 2019-01-18 11:30)
DX: J69.0 Pneumonitis due to inhalation of food and vomit (principal); J96.01 Acute respiratory failure with hypoxia; I50.43 Acute on chronic combined systolic (congestive) and diastolic (congestive) heart failure; I13.0 Hypertensive heart and chronic kidney disease with heart failure and stage 1 through stage 4 chronic kidney disease, or unspecified chronic kidney disease; I42.8 Other cardiomyopathies; J44.0 Chronic obstructive pulmonary disease with (acute) lower respiratory infection; J44.1 Chronic obstructive pulmonary disease with (acute) exacerbation; J98.11 Atelectasis; J98.19 Other pulmonary collapse; T17.590A Other foreign object in bronchus causing asphyxiation, initial encounter; N18.3 Chronic kidney disease, stage 3 (moderate); F10.10 Alcohol abuse, uncomplicated; F12.10 Cannabis abuse, uncomplicated; F14.10 Cocaine abuse, uncomplicated; F17.210 Nicotine dependence, cigarettes, uncomplicated; I44.1 Atrioventricular block, second degree; I44.7 Left bundle-branch block, unspecified; J98.09 Other diseases of bronchus, not elsewhere classified; Z82.49 Family history of ischemic heart disease and other diseases of the circulatory system; Z91.19 Patient's noncompliance with other medical treatment and regimen; Z83.3 Family history of diabetes mellitus; Z71.6 Tobacco abuse counseling; Z71.51 Drug abuse counseling and surveillance of drug abuser
CPT/HCPCS: 31622; 36415; 36600; 71045; 71046; 71260; 78582; 80053; 80202; 80307; 82805; 83735; 83880; 84443; 84484; 85007; 85025; 90471; 90686; 93005; 93306; 94618; 94640; 94760; 96365; 96374; 96375; 99406; A9540; A9558; J0360; J1650; J1940; J2543; J2704; J2930; J3370; J7030; J7040; J7050; J7120; J7613; J7620; J7626; 99285-25; G0378

== ENCOUNTER 2019-08-30 13:57 | Emergency (ER) | payer MEDICARE, MEDICAID ==
[~2019-08-30] VITALS: Ht 175.3 cm; Wt 85.0 kg
[~2019-08-30 13:57] MED LIST changes: +ALBU2.5V8 NEB; +AMOX1TAB11 PO; +APIX5TAB PO; +CARV12.511 PO; +FURO-69 PO; +IPRA3AMP29 NEB; +METO25TA2 PO; +PRED-220 PO; +PRED20TA PO
--- NOTE | 2019-08-30 14:21 | PHYS DOC ---
Past Medical History Past Medical History: Asthma, CHF, COPD, Hypertension, Other Additional Past Medical Histor: Drug abuse Past Surgical History: Pacemaker, Other Additional Past Surgical Histo: HERNIA, L KNEE Smoking Status: Current Every Day Smoker Alcohol Use: Heavy Drug Use: Cocaine, Marijuana General Adult EDM: Chief Complaint: SHORTNESS OF BREATH HPI: HPI: 64-year-old male past medical history of COPD asthma on 6 L nasal cannula presents for evaluation of low oxygen saturation. Patient states prior to arrival home nurse was evaluating patient and he had an oxygen saturation in the 80s. Patient has no complaints Patient tells me he his shortness of breath is not worse than normal. He denies any associated chest pain. Patient states he has had a cough with sputum production for the last several months. Patient denies any fevers chills or chest pain. During my exam patients oxygen saturation 95% on 6L NC. Review of Systems: Review of Systems: Constitutional: Denies fever or chills. [] Eyes: Denies change in visual acuity. [] HENT: Denies nasal congestion or sore throat. [] Respiratory: Denies cough or shortness of breath. [] Cardiovascular: Denies chest pain or edema. [] GI: Denies abdominal pain, nausea, vomiting, bloody stools or diarrhea. [] : Denies dysuria. [] Musculoskeletal: Denies back pain or joint pain. [] Integument: Denies rash. [] Neurologic: Denies headache, focal weakness or sensory changes. [] Endocrine: Denies polyuria or polydipsia. [] Lymphatic: Denies swollen glands. [] Psychiatric: Denies depression or anxiety. [] Heart Score: Risk Factors: Risk Factors: DM, Current or recent (<one month) smoker, HTN, HLP, family history of CAD, obesity. Risk Scores: Score 0 - 3: 2.5% MACE over next 6 weeks - Discharge Home Score 4 - 6: 20.3% MACE over next 6 weeks - Admit for Clinical Observation Score 7 - 10: 72.7% MACE over next 6 weeks - Early Invasive Strategies Allergies: Allergies: Allergies Coded Allergies Type Severity Reaction Last Updated Verified No Known Drug Allergies 01/18/19 No Physical Exam: PE: Constitutional: Well developed, well nourished, no acute distress, non-toxic appearance. [] HENT: Normocephalic, atraumatic, bilateral external ears normal, oropharynx moist, no oral exudates, nose normal. [] Eyes: PERRLA, EOMI, conjunctiva normal, no discharge. [] Neck: Normal range of motion, no tenderness, supple, no stridor. [] Cardiovascular:Heart rate regular rhythm, no murmur [] Lungs & Thorax: Bilateral breath sounds clear to auscultation [] Abdomen: Bowel sounds normal, soft, no tenderness, no masses, no pulsatile masses. [] Skin: Warm, dry, no erythema, no rash. [] Back: No tenderness, no CVA tenderness. [] Extremities: No tenderness, no cyanosis, no clubbing, ROM intact, no edema. [] Neurologic: Alert and oriented X 3, normal motor function, normal sensory function, no focal deficits noted. [] Psychologic: Affect normal, judgement normal, mood normal. [] Current Patient Data: Vital Signs: Vital Signs Date Time Temp Pulse Resp B/P (MAP) Pulse Ox O2 Delivery O2 Flow Rate FiO2 08/30/19 14:00 99.0 72 26 138/86 (103) 95 Nasal Cannula 6.0 99.0 EKG: EKG: [ekg time 1415 heart rate 77 sinus rhythm no stemi] Radiology/Procedures: Radiology/Procedures: [] Impression: Impression: 1. Complete right upper lobe atelectasis, may represent mucus plugging or obstructing mass. CT can further evaluate. 2. Cardiomegaly, unchanged. Course & Med Decision Making: Course & Med Decision Making Pertinent Labs and Imaging studies reviewed. (See chart for details) [] Patient was evaluated for chief complaint. Work-up consisted of EKG, laboratory analysis, and radiologic imaging. Results reviewed and discussed with patient. X-ray findings show a right upper lobe atelectasis. I discussed these findings with the radiologist who states the findings are not new. The initial radiologist impression states CT imaging of chest might be helpful to differentiate a mucous plug versus obstructing mass. Based upon initial radiologist's impression I had ordered a CT of patient's chest. But after discussion with the radiologist I elected to cancel CT of chest. Radiologist stated that he reviewed previous xrays and last CT and patient may benefit from a bronchoscopy vs another CT chest. I agree with this plan. I feel that patient is stable for discharge. I dicussed all lab and xray finds with patient. It is recommended that patient follow up with PCP and subsequently with pulmonology for further evaluation of atelectasis. Arsenio Disclaimer: Arsenio Disclaimer: This electronic medical record was generated, in whole or in part, using a voice recognition dictation system. Departure Departure Impression: Primary Impression: Hypoxia Additional Impression: Atelectasis of right lung Disposition: HOME, SELF-CARE Condition: STABLE Referrals: UNKNOWN PCP NAME (PCP) Patient Instructions: Atelectasis, Hypoxemia Scripts Doxycycline Monohydrate (DOXYCYCLINE MONOHYDRATE) 100 Mg Capsule 1 CAP PO BID, #14 CAP Prov: LESLY ASTUDILLO DO 08/30/19 LESLY ASTUDILLO DO August 30, 2019 14:21
[2019-08-30 14:33] LABS: BASO % 1 % (0-3); EOS # 0.1 x10^3/uL (0.0-0.7); EOS % 2 % (0-3); HEMATOCRIT 41.5 % (39.0-53.0); HEMOGLOBIN 13.8 g/dL (13.0-17.5); LYMPH # 0.5 x10^3/uL (1.0-4.8); LYMPH % 5 % (24-48); MEAN CORPUSCULAR HEMOGLOBIN 32 pg (25-35); MEAN CORPUSCULAR HGB CONC 33 g/dL (31-37); MEAN CORPUSCULAR VOLUME 95 fL (79-100); MONO # 0.9 x10^3/uL (0.0-1.1); MONO % 11 % (0-9); NEUT # 7.2 x10^3/uL (1.8-7.7); NEUT % 82 % (31-73); PLATELET COUNT 108 x10^3/uL (140-400); RED BLOOD COUNT 4.38 x10^6/uL (4.30-5.70); RED CELL DISTRIBUTION WIDTH 15.5 % (11.5-14.5); WHITE BLOOD COUNT 8.8 x10^3/uL (4.0-11.0)
[2019-08-30 14:53] LABS: CALCIUM 9.8 mg/dL (8.5-10.1); CREATININE 1.2 mg/dL (0.7-1.3); POTASSIUM 3.8 mmol/L (3.5-5.1)
[2019-08-30 14:59] LABS: ALBUMIN/GLOBULIN RATIO 0.8 (1.0-1.7); TOTAL BILIRUBIN 1.2 mg/dL (0.2-1.0); TOTAL PROTEIN 6.8 g/dL (6.4-8.2)
--- NOTE | 2019-08-30 15:04 | RAD ---
CHEST AP ONLY History: Shortness of breath Comparison: July 29, 2019 radiograph. July 30, 2019 CT. Findings: Right upper lobe complete atelectasis. Mild patchy mid and bibasilar opacities, decreased compared to prior. No pleural effusion. Cardiomegaly, unchanged. Stable left-sided pacemaker. No pneumothorax. Prominence of the right hilum, unchanged. Impression: 1. Complete right upper lobe atelectasis, may represent mucus plugging or obstructing mass. CT can further evaluate. 2. Cardiomegaly, unchanged. Electronically signed by: Wu Valles DO (08/30/2019 3:00 PM) [id number]
[2019-08-30 16:32] VITALS: BP 150/98
[2019-08-30] MEDS ORDERED: DOXY100C14 PO (16:35)
--- NOTE | 2019-08-31 06:38 | EKG ---
[facility] [address] [place] [address] Test Date: 2019-08-30 Test Time: 14:15:01 Pat Name: NEIL EWING Department: Room: Gender: M [employer]: : 1955 Requested By: LESLY ASTUDILLO Order Number: [id number] Reading MD: Talat Schwartz Measurements Intervals Orr Rate: 77 P: 90 WA: 114 QRS: -153 QRSD: 176 T: 46 QT: 434 QTc: 493 Interpretive Statements VENTRICULAR PACED RHYTHM Electronically Signed On 08-31-2019 8:24:19 CDT by Talat Schwartz
== END 2019-08-30 17:20 | disposition home or self-care (01) ==
LOC: ER 13:57
DX: J98.11 Atelectasis (principal); R09.02 Hypoxemia; J44.9 Chronic obstructive pulmonary disease, unspecified; I50.9 Heart failure, unspecified; I11.0 Hypertensive heart disease with heart failure; F17.200 Nicotine dependence, unspecified, uncomplicated; F12.90 Cannabis use, unspecified, uncomplicated; F14.90 Cocaine use, unspecified, uncomplicated; F10.10 Alcohol abuse, uncomplicated; Z95.0 Presence of cardiac pacemaker; Z98.890 Other specified postprocedural states
CPT/HCPCS: 36415; 71045; 80053; 83880; 84484; 85025; 93005; 99285

== ENCOUNTER 2019-11-23 16:13 | Inpatient (IN) | payer MEDICARE, MEDICAID ==
[2019-11-22 21:00] VITALS: BP 126/92
[~2019-11-23] VITALS: Ht 185.4 cm; Wt 77.8 kg
[~2019-11-23 16:13] MED LIST changes: +DOXY100C14 PO; +LACT1CAP19 PO; +LEVO750T31 PO
[2019-11-23] MEDS ORDERED: predniSONE 20 MG TABLET PO ONE (17:00)
[2019-11-23] MEDS ORDERED: IPRATRPIUM/ALBUTEROL 0.5/2.5MG 3 ML NEBU. NEB ONE (17:00)
[2019-11-23] MEDS ORDERED: IV NORMAL SALINE 1000ML BAG 1,000 ML IV ONE (17:00)
[2019-11-23 17:12] LABS: BASO % 1 % (0-3); EOS # 0.1 x10^3/uL (0.0-0.7); EOS % 2 % (0-3); HEMATOCRIT 37.4 % (39.0-53.0); HEMOGLOBIN 12.4 g/dL (13.0-17.5); LYMPH # 0.7 x10^3/uL (1.0-4.8); LYMPH % 10 % (24-48); MEAN CORPUSCULAR HEMOGLOBIN 31 pg (25-35); MEAN CORPUSCULAR HGB CONC 33 g/dL (31-37); MEAN CORPUSCULAR VOLUME 93 fL (79-100); MONO # 0.6 x10^3/uL (0.0-1.1); MONO % 9 % (0-9); NEUT # 5.2 x10^3/uL (1.8-7.7); NEUT % 78 % (31-73); PLATELET COUNT 121 x10^3/uL (140-400); RED BLOOD COUNT 4.03 x10^6/uL (4.30-5.70); RED CELL DISTRIBUTION WIDTH 16.3 % (11.5-14.5); WHITE BLOOD COUNT 6.6 x10^3/uL (4.0-11.0)
[2019-11-23 17:22] LABS: CALCIUM 9.6 mg/dL (8.5-10.1); CREATININE 1.3 mg/dL (0.7-1.3); GFR 67.5; POTASSIUM 3.9 mmol/L (3.5-5.1)
--- NOTE | 2019-11-23 17:26 | PHYS DOC ---
Past Medical History Past Medical History: Asthma, CHF, COPD, Hypertension, Other Additional Past Medical Histor: Drug abuse (ABHISHEK CABALLERO DO) Past Surgical History: Pacemaker, Other Additional Past Surgical Histo: HERNIA, L KNEE (ABHISHEK CABALLERO DO) Smoking Status: Current Every Day Smoker Alcohol Use: Heavy Drug Use: Cocaine, Marijuana (ABHISHEK CABALLERO DO) General Adult EDM: Chief Complaint: SHORTNESS OF BREATH HPI: HPI: The history was obtained from the patient. Patient is a 64-year-old male with PMH oxygen dependent COPD who presents with a chief complaint of progressive shortness of breath over the past several days. He does note a dry cough without increase sputum production. He denies any chest pain. He states that shortness of breath seems to be worse with exertion and slightly present at rest. He does use 6 L nasal cannula at baseline he states. He has been using his inhaler every 4-6 hours as prescribed without relief. He states that he does follow with a manager instrumentation but forgets this physician's name. He denies any recent antibiotics or steroids. Denies any recent hospitalizations. He denies any history of ventilator requirement. He denies any vomiting. He denies any known exposure to coronavirus. Denies any objective fevers. Denies syncope. No other complaints. (ABHISHEK CABALLERO DO) Review of Systems: Review of Systems: Constitutional: Denies fever or chills. [] Eyes: Denies change in visual acuity. [] HENT: Denies nasal congestion or sore throat. [] Respiratory: Positive for shortness of breath Cardiovascular: Denies chest pain or edema. [] GI: Denies abdominal pain, nausea, vomiting, bloody stools or diarrhea. [] : Denies dysuria. [] Musculoskeletal: Denies back pain or joint pain. [] Integument: Denies rash. [] Neurologic: Denies headache, focal weakness or sensory changes. [] Endocrine: Denies polyuria or polydipsia. [] Lymphatic: Denies swollen glands. [] Psychiatric: Denies depression or anxiety. [] (ABHISHEK CABALLERO DO) Heart Score: Risk Factors: Risk Factors: DM, Current or recent (<one month) smoker, HTN, HLP, family history of CAD, obesity. Risk Scores: Score 0 - 3: 2.5% MACE over next 6 weeks - Discharge Home Score 4 - 6: 20.3% MACE over next 6 weeks - Admit for Clinical Observation Score 7 - 10: 72.7% MACE over next 6 weeks - Early Invasive Strategies (ABHISHEK CABALLERO DO) Current Medications: Current Medications Medications (Trade) Dose Ordered Sig/Dex Start Time Stop Time Status Last Admin Dose Admin Albuterol/ Ipratropium (Duoneb) 9 ml 1X ONCE 11/23/19 17:00 11/23/19 17:01 DC Prednisone (Prednisone) 60 mg 1X ONCE 11/23/19 17:00 11/23/19 17:01 DC 11/23/19 17:09 60 MG Sodium Chloride 1,000 ml @ 1,000 mls/hr 1X ONCE 11/23/19 17:00 11/23/19 17:59 11/23/19 17:09 1,000 MLS/HR (ABHISHEK CABALLERO DO) Allergies: Allergies: Allergies Coded Allergies Type Severity Reaction Last Updated Verified No Known Drug Allergies 01/18/19 No (ABHISHEK CABALLERO DO) Physical Exam: PE: Constitutional: Well developed, well nourished, no acute distress, non-toxic appearance. [] HENT: Normocephalic, atraumatic, bilateral external ears normal, oropharynx mois t, no oral exudates, nose normal. [] Eyes: PERRLA, EOMI, conjunctiva normal, no discharge. [] Neck: Normal range of motion, no tenderness, supple, no stridor. [] Cardiovascular:Heart rate regular rhythm, no murmur [] Lungs & Thorax: Speaking in full sentences. 98% on 6 L nasal cannula. No accessory muscle usage or retractions noted. Good aeration. Slight end expiratory wheezes appreciated in the bases bilaterally. Abdomen: , soft, no tenderness, no masses, no pulsatile masses. [] Skin: Warm, dry, no erythema, no rash. [] Back: No tenderness, no CVA tenderness. [] Extremities: No tenderness, no cyanosis, no clubbing, ROM intact, no edema. [] Neurologic: Alert and oriented X 3, normal motor function, normal sensory function, no focal deficits noted. [] Psychologic: Affect normal, judgement normal, mood normal. [] (ABHISHEK CABALLERO DO) Current Patient Data: Labs: Laboratory Tests Test 11/23/19 16:58 White Blood Count 6.6 x10^3/uL (4.0-11.0) Red Blood Count 4.03 x10^6/uL (4.30-5.70) L Hemoglobin 12.4 g/dL (13.0-17.5) L Hematocrit 37.4 % (39.0-53.0) L Mean Corpuscular Volume 93 fL (79-100) Mean Corpuscular Hemoglobin 31 pg (25-35) Mean Corpuscular Hemoglobin Concent 33 g/dL (31-37) Red Cell Distribution Width 16.3 % (11.5-14.5) H Platelet Count 121 x10^3/uL (140-400) L Neutrophils (%) (Auto) 78 % (31-73) H Lymphocytes (%) (Auto) 10 % (24-48) L Monocytes (%) (Auto) 9 % (0-9) Eosinophils (%) (Auto) 2 % (0-3) Basophils (%) (Auto) 1 % (0-3) Neutrophils # (Auto) 5.2 x10^3/uL (1.8-7.7) Lymphocytes # (Auto) 0.7 x10^3/uL (1.0-4.8) L Monocytes # (Auto) 0.6 x10^3/uL (0.0-1.1) Eosinophils # (Auto) 0.1 x10^3/uL (0.0-0.7) Basophils # (Auto) 0.0 x10^3/uL (0.0-0.2) Sodium Level 141 mmol/L (136-145) Potassium Level 3.9 mmol/L (3.5-5.1) Chloride Level 105 mmol/L (98-107) Carbon Dioxide Level 35 mmol/L (21-32) H Anion Gap 1 (6-14) L Blood Urea Nitrogen 15 mg/dL (8-26) Creatinine 1.3 mg/dL (0.7-1.3) Estimated GFR (Cockcroft-Gault) 67.5 Glucose Level 104 mg/dL (70-99) H Calcium Level 9.6 mg/dL (8.5-10.1) Laboratory Tests 11/23/19 16:58 Laboratory Tests 11/23/19 16:58 Vital Signs: Vital Signs Date Time Temp Pulse Resp B/P (MAP) Pulse Ox O2 Delivery O2 Flow Rate FiO2 11/23/19 17:28 94 Nasal Cannula 6.0 11/23/19 17:21 98.0 64 24 133/85 (101) 6 Nasal Cannula 96.0 98.0 (ABHISHEK CABALLERO DO) EKG: EKG: EKG consistent with ventricular paced rhythm. Ventricular rate of 64 bpm. [place] abnormal secondary to ventricular pacing. Occasional PVC noted. No acute ST segment elevation appreciated. Overall similar to previous EKG from September 02, 2019 [] (ABHISHEK CABALLERO DO) Radiology/Procedures: Radiology/Procedures: [][facility] [address] [place] [address] IMAGING REPORT Signed PATIENT: NEIL EWING ACCOUNT: [id number] : 1955 LOCATION: ER AGE: 64 SEX: M EXAM STATUS: REG ER ORD. PHYSICIAN: ABHISHEK CABALLERO DO REASON: SOB PROCEDURE: CHEST AP ONLY EXAM: CHEST AP ONLY INDICATION: Reason: SOB / Spl. Instructions: / History: . TECHNIQUE: Single view COMPARISON: 09/10/2019 FINDINGS: Left chest multichamber pacemaker is redemonstrated. Heart is enlarged, slightly greater than before. The great vessels show aortic calcification and tortuosity, similar to prior. Fullness to the right greater than left bilateral ander is present and could reflect enlarged pulmonary arteries. Lungs show worsening aeration bilaterally with ill-defined opacity developing most conspicuously in the anterior right upper lobe No evidence of a pneumothorax but small bilateral pleural effusions are present, likely The right. There are no significant osseous abnormalities. IMPRESSION: Findings suggesting CHF exacerbation with developing airspace opacity in the lungs, likely alveolar edema. Superimposed pneumonia not excluded. Electronically signed by: Gia Choudhury MD (11/23/2019 5:35 PM) [id number] DICTATED and SIGNED BY: GIA CHOUDHURY MD DATE: 11/23/19 3894 (ABHISHEK CABALLERO DO) Course & Med Decision Making: Course & Med Decision Making Pertinent Labs and Imaging studies reviewed. (See chart for details) Patient is an oxygen dependent COPD patient who presents with chief complaint of shortness of breath and cough. Per chart review patient does have an extensive cardiac history as well including complete heart block with biventricular pacemaker placement as well as heart failure. Initial examination he does have some wheezing. He shows no signs of respiratory failure. Chest x-ray does show some increased consolidation versus pulmonary edema on the right middle lobe. Given the unclear nature of this chest x-ray finding IV Levaquin will be administered. He was given duo nebs and oral prednisone. At this time troponin and BNP results are pending. He remains on his home oxygen level. COVID swab was obtained and is pending. At this time signout has been given to Dr. Seth. We did discuss the current lab results, imaging results, medications given, and plan of care. Please see update note for further details and final disposition [] COVID-19 CRITERIA: The patient was evaluated during the global COVID-19 pandemic, and that diagnosis was suspected/considered upon their initial presentation. Their evaluation, treatment and testing was consistent with current guidelines for patients who present with complaints or symptoms that may be related to COVID-19. (ABHISHEK CABALLERO DO) Course & Med Decision Making 2001-the patient was seen and evaluated at shift change and multiple occasions throughout his hospitalization here in the emergency department. Patient is suffering from significant hypoxemia and what looks like early CO2 retention with a borderline respiratory acidosis. Patient has been started on BiPAP and seems to be stable enough for admission to the hospital. He does not appear to be need to be animated at this time. IV antibiotics have been started for his community-acquired pneumonia. Is noted that he had a reaction to Levaquin. I discussed the case with the hospitalist who agreed to admit the patient. (TIFFANY SETH MD) Dragon Disclaimer: Dragon Disclaimer: This electronic medical record was generated, in whole or in part, using a voice recognition dictation system. (ABHISHEK CABALLERO DO) Departure Departure Impression: Primary Impression: Acute respiratory failure with hypoxia Additional Impressions: COPD exacerbation Community acquired pneumonia Qualified Codes: J18.9 - Pneumonia, unspecified organism Disposition: ADMITTED INPATIENT Condition: CRITICAL Referrals: MARTINEZ DIAL APRN (PCP) Justicifation of Admission Dx: Justifications for Admission: Justification of Admission Dx: N/A (ABHISHEK CABALLERO DO) Critical Care Note Total Time (mins): 45 Comments Critical care time of 45 minutes was billed outside of any teaching or procedure time. Critical care time was billed secondary to impending collapse of the cardiovascular and respiratory system. Problems: (1) Community acquired pneumonia Qualifiers: Qualified Codes: J18.9 - Pneumonia, unspecified organism (2) Acute respiratory failure with hypoxia (TIFFANY SETH MD) Critical Care Time Critical care time was [] minutes exclusive of procedures. (TIFFANY SETH MD) ABHISHEK CABALLERO DO Nov 23, 2019 17:26 TIFFANY SETH MD Nov 23, 2019 20:05
--- NOTE | 2019-11-23 17:38 | RAD ---
EXAM: CHEST AP ONLY INDICATION: Reason: SOB / Spl. Instructions: / History: . TECHNIQUE: Single view COMPARISON: 09/10/2019 FINDINGS: Left chest multichamber pacemaker is redemonstrated. Heart is enlarged, slightly greater than before. The great vessels show aortic calcification and tortuosity, similar to prior. Fullness to the right greater than left bilateral ander is present and could reflect enlarged pulmonary arteries. Lungs show worsening aeration bilaterally with ill-defined opacity developing most conspicuously in the anterior right upper lobe No evidence of a pneumothorax but small bilateral pleural effusions are present, likely The right. There are no significant osseous abnormalities. IMPRESSION: Findings suggesting CHF exacerbation with developing airspace opacity in the lungs, likely alveolar edema. Superimposed pneumonia not excluded. Electronically signed by: Lisa Choudhury MD (11/23/2019 5:35 PM) [id number]
[2019-11-23 17:42] LABS: ISTAT BE VENOUS 5 mmol/L (0-3); ISTAT HCO3 VEN 32 mmol/L (24-28); ISTAT PCO2 VEN 64 mmHg (41-51); ISTAT PO2 VEN 76 mmHg (20-40); ISTAT SAT O2 VEN 93 %; ISTAT TCO2 VEN 33 mmol/L (21-32)
[2019-11-23] MEDS ORDERED: AZITHRMYCN 500MG IVPB FOR OMNI 250 ML IV ONE (19:15)
[2019-11-23] MEDS ORDERED: cefTRIAXone IV Push 1 GM VIAL. IVP ONE (19:15)
--- NOTE | 2019-11-23 19:16 | PDOC1 ---
History and Physical Date of Service: DOS: DATE: 11/23/19 TIME: 19:12 Chief Complaint: Problems: (1) CHF (congestive heart failure) (2) CHF (congestive heart failure) (3) CHF exacerbation (4) NSTEMI (non-ST elevated myocardial infarction) (5) Acute exacerbation of CHF (congestive heart failure) (6) Asthma (7) Hypoxia (8) Substance abuse (9) Left flank pain (10) COPD exacerbation (11) Bradycardia (12) Dyspnea (13) CKD (chronic kidney disease), stage III (14) LBBB (left bundle branch block) (15) NICM (nonischemic cardiomyopathy) (16) HTN (hypertension) (17) Acute on chronic combined systolic and diastolic heart failure Chief Complain: Shortness of breath and cough History of Present Illness: HPI: This is a 58-year-old -[place] male who appears younger than his stated age I admitted him about once a month He continues to do cocaine and smoke and has known COPD Once again he presents with shortness of breath and cough and weakness Chest x-ray showing CHF and possible pneumonia Discussed the case with the ER physician Recurrent admit the patient him IV antibiotics We will be consulting cardiology and pulmonary as well Past Medical/Surgical History: PMH/PSH: Past Medical History: Asthma, CHF, COPD, Hypertension, Other Additional Past Medical Histor: Drug abuse Past Surgical History: Pacemaker, Other Additional Past Surgical Histo: HERNIA, L KNEE Smoking Status: Current Every Day Smoker Alcohol Use: Heavy Drug Use: Cocaine, Marijuana Allergies: Allergies: Coded Allergies: No Known Drug Allergies (Unverified , 01/18/19) Family History: Family History: Hypertension Social History: Social History: He does cocaine He smokes I believe he lives alone Current Medications: Current Medications Current Medications Prednisone (Prednisone) 60 mg 1X ONCE PO Last administered on 11/23/19at 17:09; Start 11/23/19 at 17:00; Stop 11/23/19 at 17:01; Status DC Albuterol/ Ipratropium (Duoneb) 9 ml 1X ONCE NEB Last administered on 11/23/19at 17:28; Start 11/23/19 at 17:00; Stop 11/23/19 at 17:01; Status DC Sodium Chloride 1,000 ml @ 1,000 mls/hr 1X ONCE IV Last administered on 11/22at 17:09; Start 11/23/19 at 17:00; Stop 11/23/19 at 17:59; Status DC Levofloxacin/ Dextrose 150 ml @ 100 mls/hr 1X ONCE IV Last administered on 11/23/19at 18:49; Start 11/23/19 at 18:00; Stop 11/23/19 at 19:07; Status DC Ceftriaxone Sodium (Rocephin) 2 gm 1X ONCE IVP ; Start 11/23/19 at 19:15; Stop 11/23/19 at 19:16 Azithromycin 250 ml @ 250 mls/hr 1X ONCE IV ; Start 11/23/19 at 19:15; Stop 11/23/19 at 20:14 Active Scripts Active Levaquin (Levofloxacin) 750 Mg Tablet 1 Tab PO DAILY 10 Days Culturelle (Lactobacillus Rhamnosus Gg) 1 Each Cap.sprink 1 Cap PO BID 10 Days Lasix (Furosemide) 20 Mg Tablet 1 Tab PO DAILY 30 Days Lisinopril 40 Mg Tablet 20 Mg PO DAILY 30 Days Proair Hfa (Albuterol Sulfate) 8.5 Gm Hfa.aer.ad 2.5 Mg NEB PRN Q2HR PRN 30 Days Duoneb 0.5-3(2.5) Mg/3 Ml (Albuterol/Ipratropium) 3 Ml Ampul.neb 3 Ml NEB Q4HRS 30 Days Albuterol Sulfate Neb Soln (Albuterol Sulfate) 0.63 Mg/3 Ml Vial.neb 0.63 Mg NEB PRN Q4HRS PRN 30 Days NEEDED Reported Eliquis (Apixaban) 5 Mg Tablet 5 Mg PO BID Toprol Xl (Metoprolol Succinate) 25 Mg Tab.er.24h 1 Tab PO DAILY 30 Days Zocor (Simvastatin) 20 Mg Tablet 20 Mg PO HS NEXT DOSE DUE TONIGHT AT BEDTIME Amlodipine Besylate 10 Mg Tablet 10 Mg PO DAILY NEXT DOSE DUE IN AM Potassium Chloride 10 Meq Tab.er.prt 20 Meq PO DAILY NEXT DOSE DUE IN AM ROS: Review of Systems Review of System REVIEW OF SYSTEMS: GENERAL: Denies weakness SKIN: No bruising, hair changes or rashes. EYES: No blurred, double or loss of vision. NOSE AND THROAT: No history of nosebleeds, hoarseness or sore throat. HEART: No history of palpitations, chest pain or shortness of breath on exertion. LUNGS: Complains of cough and shortness of breath GASTROINTESTINAL: Denies changes in appetite, nausea, vomiting, diarrhea or constipation. GENITOURINARY: No history of frequency, urgency, hesitancy or nocturia. NEUROLOGIC: Denies history of numbness, tingling, or tremor. PSYCHIATRIC: No history of panic, anxiety or depression. ENDOCRINE: No history of heat or cold intolerance, polyuria or polydipsia. EXTREMITIES: Denies joint pain, pain on walking or stiffness. Physical Exam: Vital Signs: Vital Signs Date Time Temp Pulse Resp B/P (MAP) Pulse Ox O2 Delivery O2 Flow Rate FiO2 11/23/19 18:58 66 26 141/89 (106) 77 Venturi Mask 12.0 11/23/19 17:21 98.0 98.0 Physcial Exam: GEN: No apparent distress. Alert and oriented HEENT: Normal cephalic, atraumatic, external auditory canals are patent EYES: Extraocular muscles are intact, pupil are equally round and reactive to light and accommodation MUSCULOSKELETAL: Well developed , well nourished, good range of motion ENDOCRINE: No thyromegaly was palpated LYMPHATICS: No cervical chain or axillary nodes were noted HEMATOPOIETIC: No bruising NECK: Supple, no JVD, no thyromegaly was noted LUNGS: Slight bibasilar crackles HEART: RRR, S!, S2 present. Peripheral pulses intact, no obvious murmurs noted ABDOMEN: Soft, nontender. Positive bowel sounds, no organomegaly, normal bowel sounds EXTREMITIES: Without clubbing, cyanosis, or edema. Pedal pulses intact. Negative Homans sign NEUROLOGIC: Normal speech and tone. A&O x 3, moves all extremities, no obvious focal deficits PSYCHIATRIC: Normal affect, normal mood. Stable SKIN: No ulcerations or rashes, good skin turgor, no jaundice VASCULAR: Good capillary refill, neurovascular bundle appears to be intact Labs: Labs: Laboratory Tests Test 11/23/19 16:58 11/23/19 17:39 White Blood Count 6.6 x10^3/uL (4.0-11.0) Red Blood Count 4.03 x10^6/uL (4.30-5.70) Hemoglobin 12.4 g/dL (13.0-17.5) Hematocrit 37.4 % (39.0-53.0) Mean Corpuscular Volume 93 fL (79-100) Mean Corpuscular Hemoglobin 31 pg (25-35) Mean Corpuscular Hemoglobin Concent 33 g/dL (31-37) Red Cell Distribution Width 16.3 % (11.5-14.5) Platelet Count 121 x10^3/uL (140-400) Neutrophils (%) (Auto) 78 % (31-73) Lymphocytes (%) (Auto) 10 % (24-48) Monocytes (%) (Auto) 9 % (0-9) Eosinophils (%) (Auto) 2 % (0-3) Basophils (%) (Auto) 1 % (0-3) Neutrophils # (Auto) 5.2 x10^3/uL (1.8-7.7) Lymphocytes # (Auto) 0.7 x10^3/uL (1.0-4.8) Monocytes # (Auto) 0.6 x10^3/uL (0.0-1.1) Eosinophils # (Auto) 0.1 x10^3/uL (0.0-0.7) Basophils # (Auto) 0.0 x10^3/uL (0.0-0.2) Sodium Level 141 mmol/L (136-145) Potassium Level 3.9 mmol/L (3.5-5.1) Chloride Level 105 mmol/L (98-107) Carbon Dioxide Level 35 mmol/L (21-32) Anion Gap 1 (6-14) Blood Urea Nitrogen 15 mg/dL (8-26) Creatinine 1.3 mg/dL (0.7-1.3) Estimated GFR (Cockcroft-Gault) 67.5 Glucose Level 104 mg/dL (70-99) Calcium Level 9.6 mg/dL (8.5-10.1) Troponin I Quantitative 0.040 ng/mL (0.000-0.055) PO-Yfi-E-Type Natriuretic Peptide 4839 pg/mL (0-124) Bedside Venous pH 7.30 (7.32-7.42) Bedside Venous pCO2 64 mmHg (41-51) Bedside Venous pO2 76 mmHg (20-40) Venous Blood HCO3 32 mmol/L (24-28) POC Venous O2 Saturation (Burke) 93 % Bedside FiO2 21.0 Laboratory Tests Test 8/5/20 16:58 11/23/19 17:39 White Blood Count 6.6 x10^3/uL (4.0-11.0) Red Blood Count 4.03 x10^6/uL (4.30-5.70) Hemoglobin 12.4 g/dL (13.0-17.5) Hematocrit 37.4 % (39.0-53.0) Mean Corpuscular Volume 93 fL (79-100) Mean Corpuscular Hemoglobin 31 pg (25-35) Mean Corpuscular Hemoglobin Concent 33 g/dL (31-37) Red Cell Distribution Width 16.3 % (11.5-14.5) Platelet Count 121 x10^3/uL (140-400) Neutrophils (%) (Auto) 78 % (31-73) Lymphocytes (%) (Auto) 10 % (24-48) Monocytes (%) (Auto) 9 % (0-9) Eosinophils (%) (Auto) 2 % (0-3) Basophils (%) (Auto) 1 % (0-3) Neutrophils # (Auto) 5.2 x10^3/uL (1.8-7.7) Lymphocytes # (Auto) 0.7 x10^3/uL (1.0-4.8) Monocytes # (Auto) 0.6 x10^3/uL (0.0-1.1) Eosinophils # (Auto) 0.1 x10^3/uL (0.0-0.7) Basophils # (Auto) 0.0 x10^3/uL (0.0-0.2) Sodium Level 141 mmol/L (136-145) Potassium Level 3.9 mmol/L (3.5-5.1) Chloride Level 105 mmol/L (98-107) Carbon Dioxide Level 35 mmol/L (21-32) Anion Gap 1 (6-14) Blood Urea Nitrogen 15 mg/dL (8-26) Creatinine 1.3 mg/dL (0.7-1.3) Estimated GFR (Cockcroft-Gault) 67.5 Glucose Level 104 mg/dL (70-99) Calcium Level 9.6 mg/dL (8.5-10.1) Troponin I Quantitative 0.040 ng/mL (0.000-0.055) JO-Zul-F-Type Natriuretic Peptide 4839 pg/mL (0-124) Bedside Venous pH 7.30 (7.32-7.42) Bedside Venous pCO2 64 mmHg (41-51) Bedside Venous pO2 76 mmHg (20-40) Venous Blood HCO3 32 mmol/L (24-28) POC Venous O2 Saturation (Burke) 93 % Bedside FiO2 21.0 Images: Images Chest x-ray shows heart failure and/or pneumonia Assessment/Plan Assessment/Plan Respiratory failure COPD Drug abuse CHF (acute on chronic systolic and diastolic) Probable pneumonia Plan IV antibiotics IV Lasix Home meds Metered-dose inhalers O2 to titrate to keep his sat greater than 92 Consult pulmonary consult cardiology Trend labs Cardiac monitoring Long-term prognosis guarded if he does not quit doing the drugs Justicifation of Admission Dx: Justifications for Admission: Justification of Admission Dx: N/A Respiratory Failure: Severe Resp Distress KINA CONTRERAS III DO Nov 23, 2019 19:15
[2019-11-23 19:22] LABS: BASE EXCESS COOX 3 mmol/L (-3-3); HCO3 COOX 30 mmol/L (21-28); METHEMOGLOBIN 0.4 % (0.0-1.9); OXYHEMOGLOBIN 64.1 %; PCO2 COOX 57 mmHg (35-46)
[2019-11-23 21:15] VITALS: BP 131/91
[2019-11-23 21:30] VITALS: BP 122/84
[2019-11-23 21:30] LABS: PO2 COOX < 42 mmHg (65-108); SAT O2 COOX 65 % (92-99)
--- NOTE | 2019-11-23 21:30 | NUR ---
Patient admitted to room 111, patient on non-rebreather for transport. RT brought bipap to bedside. Able to orient to room and call light. Patient comfortable and has no complaints at this time. Able to answer admission questions, says there is no change to history/home meds since last admit in August. Received admit orders from Dr. Aden.
[2019-11-23 21:45] VITALS: BP 118/80
[2019-11-23 22:00] VITALS: BP 125/83
[2019-11-23 23:00] VITALS: BP 126/81
[2019-11-24] VITALS (17 sets, daily range): BP systolic 107–143; BP diastolic 68–94
[2019-11-24 07:39] LABS: BASE EXCESS COOX 0 mmol/L (-3-3); HCO3 COOX 29 mmol/L (21-28); METHEMOGLOBIN 0.4 % (0.0-1.9); OXYHEMOGLOBIN 92.8 %; PO2 COOX 78 mmHg (65-108); SAT O2 COOX 94 % (92-99)
[2019-11-24 07:42] LABS: PCO2 COOX 67 mmHg (35-46)
--- NOTE | 2019-11-24 07:54 | PDOC ---
[facility] PROGRESS NOTE Date of Service DOS: DATE: 11/24/19 TIME: 07:53 Chief Complaint Chief Complaint A/P: Acute on chronic respiratory failure, multifactorial secondary to PNA, AECOPD, mild acute on chronic systolic CHF Gram-negative possibly gram-positive pneumonia Possible aspiration pneumonia Mild Acute on Chronic systolic/diastolic CHF Chronic mild troponin elevation: within his range, no acute changes per EKG. demand mediated with continued use of cocaine SSS CHF - 40% ejection H/o A. fib HTN CKD3 Chronic Substance abuse; cocaine and marijuana use. Last use 3 days ago Tobaccoism PUI -SARS-COVID negative. 09/10 and again today negative CC time 38 minutes History of Present Illness History of Present Illness Mr James is a 63 yo M w/ PMHx CHB s/p BiV pacemaker, HTN, CKD2, tobacco abuse, COPD on 4-5L home O2, CHF EF 40-45, active cocaine user, ETOH, and marijuana abuse who p/w shortness of breath that was fairly sudden onset 11/23/2019. after smoking multiple substances. He had some back pain. No anterior chest pain. He was trying to use his home nebulizer, states it wasn't helping. He does not know if he has had weight gain, does not have a scale at home. Has LE edema that is much worse as well as orthopnea and PND, not sleeping well. He has a mild cough, no hemoptysis, no weight loss. No headaches, no nausea, vomiting or diarrhea. He was afebrile, has had no recent travel or sick contacts. Seen with severe dyspnea and ABG 7.25/67/78. BNP 4839, Trop 0.04, WBC 6.6, Hb 12.9, Platelets 129, Cr 1.3, K 3.9 He continues to do cocaine and smoke and has known COPD Chest x-ray showing CHF and possible pneumonia, admitted to ICU on BIPAP for respiratory failure. Seen on BIPAP in ICU, appears comfortable on it. Afebrile. Still hypoxic. COVID 19 negative Vitals/I&O Vitals/I&O: Vital Signs Date Time Temp Pulse Resp B/P (MAP) Pulse Ox O2 Delivery O2 Flow Rate FiO2 11/24/19 07:21 97 BiPAP/CPAP 11/24/19 06:00 63 14 127/78 (94) 11/24/19 04:00 97.5 97.5 11/23/19 21:30 15.0 I & O 11/23/19 11/23/19 11/24/19 15:00 23:00 07:00 Intake Total 1250 ml 50 ml Output Total 300 ml Balance 1250 ml -250 ml Physical Exam General: Alert, Oriented X3, Cooperative, moderate distress Heart: Regular rate, Normal S1, Normal S2 Lungs: Wheezing Abdomen: Normal bowel sounds, Soft Labs Labs: Laboratory Tests Test 11/23/19 16:58 11/23/19 17:39 11/23/19 18:59 11/24/19 07:35 White Blood Count 6.6 x10^3/uL (4.0-11.0) Red Blood Count 4.03 x10^6/uL (4.30-5.70) Hemoglobin 12.4 g/dL (13.0-17.5) Hematocrit 37.4 % (39.0-53.0) Mean Corpuscular Volume 93 fL (79-100) Mean Corpuscular Hemoglobin 31 pg (25-35) Mean Corpuscular Hemoglobin Concent 33 g/dL (31-37) Red Cell Distribution Width 16.3 % (11.5-14.5) Platelet Count 121 x10^3/uL (140-400) Neutrophils (%) (Auto) 78 % (31-73) Lymphocytes (%) (Auto) 10 % (24-48) Monocytes (%) (Auto) 9 % (0-9) Eosinophils (%) (Auto) 2 % (0-3) Basophils (%) (Auto) 1 % (0-3) Neutrophils # (Auto) 5.2 x10^3/uL (1.8-7.7) Lymphocytes # (Auto) 0.7 x10^3/uL (1.0-4.8) Monocytes # (Auto) 0.6 x10^3/uL (0.0-1.1) Eosinophils # (Auto) 0.1 x10^3/uL (0.0-0.7) Basophils # (Auto) 0.0 x10^3/uL (0.0-0.2) Sodium Level 141 mmol/L (136-145) Potassium Level 3.9 mmol/L (3.5-5.1) Chloride Level 105 mmol/L (98-107) Carbon Dioxide Level 35 mmol/L (21-32) Anion Gap 1 (6-14) Blood Urea Nitrogen 15 mg/dL (8-26) Creatinine 1.3 mg/dL (0.7-1.3) Estimated GFR (Cockcroft-Gault) 67.5 Glucose Level 104 mg/dL (70-99) Calcium Level 9.6 mg/dL (8.5-10.1) Troponin I Quantitative 0.040 ng/mL (0.000-0.055) NG-Baw-Z-Type Natriuretic Peptide 4839 pg/mL (0-124) Bedside Venous pH 7.30 (7.32-7.42) Bedside Venous pCO2 64 mmHg (41-51) Bedside Venous pO2 76 mmHg (20-40) Venous Blood HCO3 32 mmol/L (24-28) POC Venous O2 Saturation (Burke) 93 % Bedside FiO2 21.0 O2 Saturation 65 % (92-99) 94 % (92-99) Arterial Blood pH 7.34 (7.35-7.45) 7.25 (7.35-7.45) Arterial Blood pCO2 at Patient Temp 57 mmHg (35-46) 67 mmHg (35-46) Arterial Blood pO2 at Patient Temp < 42 mmHg (65-108) 78 mmHg (65-108) Arterial Blood HCO3 30 mmol/L (21-28) 29 mmol/L (21-28) Arterial Blood Base Excess 3 mmol/L (-3-3) 0 mmol/L (-3-3) Oxyhemoglobin 64.1 % 92.8 % Methemoglobin 0.4 % (0.0-1.9) 0.4 % (0.0-1.9) Carbon Monoxide, Quantitative 1.5 % (0.0-1.9) 0.6 % (0.0-1.9) FiO2 40 50% Assessment and Plan Assessmemt and Plan Problems Medical Problems: (1) Acute respiratory failure with hypoxia Status: Acute (2) Community acquired pneumonia Status: Acute (3) COPD exacerbation Status: Acute Comment Review of Relevant I have reviewed the following items rishi (where applicable) has been applied. Medications: Current Medications Medications (Trade) Dose Ordered Sig/Dex Route PRN Reason Start Time Stop Time Status Last Admin Dose Admin Prednisone (Prednisone) 60 mg 1X ONCE PO 11/23/19 17:00 11/23/19 17:01 DC 11/23/19 17:09 Albuterol/ Ipratropium (Duoneb) 9 ml 1X ONCE NEB 11/23/19 17:00 11/23/19 17:01 DC 11/23/19 17:28 Sodium Chloride 1,000 ml @ 1,000 mls/hr 1X ONCE IV 11/23/19 17:00 11/23/19 17:59 DC 11/23/19 17:09 Levofloxacin/ Dextrose 150 ml @ 100 mls/hr 1X ONCE IV 11/23/19 18:00 11/23/19 19:07 DC 11/23/19 18:49 Ceftriaxone Sodium (Rocephin) 2 gm 1X ONCE IVP 11/23/19 19:15 11/23/19 19:16 DC 11/23/19 19:24 Azithromycin 250 ml @ 250 mls/hr 1X ONCE IV 11/23/19 19:15 11/23/19 20:14 DC 11/23/19 19:24 Justicifation of Admission Dx: Justifications for Admission: Justification of Admission Dx: N/A Respiratory Failure: Severe Resp Distress CARMEN OROZCO MD Nov 24, 2019 07:54
--- NOTE | 2019-11-24 08:01 | PDOC2 ---
CARDIAC CONSULT DATE OF CONSULT Date of Consult DATE: 11/24/19 TIME: 07:48 REASON FOR CONSULT Reason for Consult: CHF REFERRING PHYSICIAN Referring Physician: Markie SOURCE Source: Chart review HISTORY OF PRESENT ILLNESS HISTORY OF PRESENT ILLNESS This is a pleasant 64 yo male admitted for complains of shortness of breath. Reports that his SOA starting to progress again in the last 3 days. Has some coughing but nonproductive. Currently he is a PUI. He lives alone and has not complain of significant peripheral edema and no chest pain or palpitations. He does use O2 at home and despite that he was still SOA. He continues to use cocaine marijuana with last use about 3-4 days ago and also still smokes tobacco otherwise he complies with his medications. He is very known to me and difficult to optimize due to continued substance abuse. Denies any fever or chills. PAST MEDICAL HISTORY Past Medical History Cardiovascular: CHF, HTN, NICM, AI, Chronic LBBB, SSS, mild chronic troponin elevation Pulmonary: Asthma, COPD, Pneumonia GI: Hemorrhoids Heme/Onc: No pertinent hx Hepatobiliary: No pertinent hx Psych: No pertinent hx Rheumatologic: No pertinent hx Infectious disease: No pertinent hx ENT: No pertinent hx Renal/: Chronic renal insufficiency Endocrine: No pertinent hx Dermatology: No pertinent hx PAST SURGICAL HISTORY Past Surgical History hemorrhoidectomy and left inguinal hernia repair; Childhood torn ligament to left knee with repair, Pacemaker/AICD (Biotronik ASSISTANT ANALYST-P) FAMILY HISTORY Family History Mother at 72 with WI and DM Father at 80 with WI Brother 1 with brain tumor at 50 Brother 2 & 3 alive with CHF Sister alive with CHF as well SOCIAL HISTORY Social History Smoke: <1 pack per day ALCOHOL: occassional Drugs: Cocaine, Marijuana Lives: Alone CURRENT MEDICATIONS CURRENT MEDICATIONS Current Medications Medications (Trade) Dose Ordered Sig/Dex Route PRN Reason Start Time Stop Time Status Last Admin Dose Admin Prednisone (Prednisone) 60 mg 1X ONCE PO 11/23/19 17:00 11/23/19 17:01 DC 11/23/19 17:09 Albuterol/ Ipratropium (Duoneb) 9 ml 1X ONCE NEB 11/23/19 17:00 11/23/19 17:01 DC 11/23/19 17:28 Sodium Chloride 1,000 ml @ 1,000 mls/hr 1X ONCE IV 11/23/19 17:00 11/23/19 17:59 DC 11/23/19 17:09 Levofloxacin/ Dextrose 150 ml @ 100 mls/hr 1X ONCE IV 11/23/19 18:00 11/23/19 19:07 DC 11/23/19 18:49 Ceftriaxone Sodium (Rocephin) 2 gm 1X ONCE IVP 11/23/19 19:15 11/23/19 19:16 DC 11/23/19 19:24 Azithromycin 250 ml @ 250 mls/hr 1X ONCE IV 11/23/19 19:15 11/23/19 20:14 DC 11/23/19 19:24 ALLERGIES ALLERGIES: Coded Allergies: levofloxacin (Verified Allergy, Unknown, Itching, 11/24/19) ROS Review of System 14 point ROS evaluated with pertinent positives noted per HPI PHYSICAL EXAM General: Alert, Oriented X3, Cooperative, moderate distress HEENT: Atraumatic Lungs: Other (Bipap) Heart: Regular rate (AV paced) Abdomen: No tenderness Extremities: No edema Skin: No breakdown Neuro: Normal speech, Sensation intact Psych/Mental Status: Mental status NL, Mood NL MUSCULOSKELETAL: Osteoarthritic changes both hands VITALS/I&O VITALS/I&O: Vital Signs Date Time Temp Pulse Resp B/P (MAP) Pulse Ox O2 Delivery O2 Flow Rate FiO2 11/24/19 07:21 97 BiPAP/CPAP 11/24/19 06:00 63 14 127/78 (94) 11/24/19 04:00 97.5 97.5 11/23/19 21:30 15.0 I & O 11/23/19 11/23/19 11/24/19 15:00 23:00 07:00 Intake Total 1250 ml 50 ml Output Total 300 ml Balance 1250 ml -250 ml LABS Lab: Laboratory Tests Test 11/23/19 16:58 11/23/19 17:39 11/23/19 18:59 11/24/19 07:35 White Blood Count 6.6 x10^3/uL (4.0-11.0) Red Blood Count 4.03 x10^6/uL (4.30-5.70) L Hemoglobin 12.4 g/dL (13.0-17.5) L Hematocrit 37.4 % (39.0-53.0) L Mean Corpuscular Volume 93 fL (79-100) Mean Corpuscular Hemoglobin 31 pg (25-35) Mean Corpuscular Hemoglobin Concent 33 g/dL (31-37) Red Cell Distribution Width 16.3 % (11.5-14.5) H Platelet Count 121 x10^3/uL (140-400) L Neutrophils (%) (Auto) 78 % (31-73) H Lymphocytes (%) (Auto) 10 % (24-48) L Monocytes (%) (Auto) 9 % (0-9) Eosinophils (%) (Auto) 2 % (0-3) Basophils (%) (Auto) 1 % (0-3) Neutrophils # (Auto) 5.2 x10^3/uL (1.8-7.7) Lymphocytes # (Auto) 0.7 x10^3/uL (1.0-4.8) L Monocytes # (Auto) 0.6 x10^3/uL (0.0-1.1) Eosinophils # (Auto) 0.1 x10^3/uL (0.0-0.7) Basophils # (Auto) 0.0 x10^3/uL (0.0-0.2) Sodium Level 141 mmol/L (136-145) Potassium Level 3.9 mmol/L (3.5-5.1) Chloride Level 105 mmol/L (98-107) Carbon Dioxide Level 35 mmol/L (21-32) H Anion Gap 1 (6-14) L Blood Urea Nitrogen 15 mg/dL (8-26) Creatinine 1.3 mg/dL (0.7-1.3) Estimated GFR (Cockcroft-Gault) 67.5 Glucose Level 104 mg/dL (70-99) H Calcium Level 9.6 mg/dL (8.5-10.1) Troponin I Quantitative 0.040 ng/mL (0.000-0.055) PX-Ect-J-Type Natriuretic Peptide 4839 pg/mL (0-124) H POC Venous pH 7.30 (7.32-7.42) L POC Venous pCO2 64 mmHg (41-51) H POC Venous pO2 76 mmHg (20-40) H Venous Blood HCO3 32 mmol/L (24-28) H POC Venous O2 Saturation (Burke) 93 % POC FiO2 21.0 O2 Saturation 65 % (92-99) *L 94 % (92-99) Arterial Blood pH 7.34 (7.35-7.45) L 7.25 (7.35-7.45) L Arterial Blood pCO2 at Patient Temp 57 mmHg (35-46) H 67 mmHg (35-46) *H Arterial Blood pO2 at Patient Temp < 42 mmHg (65-108) *L 78 mmHg (65-108) Arterial Blood HCO3 30 mmol/L (21-28) H 29 mmol/L (21-28) H Arterial Blood Base Excess 3 mmol/L (-3-3) 0 mmol/L (-3-3) Oxyhemoglobin 64.1 % 92.8 % Methemoglobin 0.4 % (0.0-1.9) 0.4 % (0.0-1.9) Carbon Monoxide, Quantitative 1.5 % (0.0-1.9) 0.6 % (0.0-1.9) FiO2 40 50% Laboratory Tests 11/23/19 16:58 Laboratory Tests 11/23/19 16:58 IMAGES IMAGES IMPRESSION: CTA 1. Right upper lobe pneumonia. Follow-up to resolution is recommended to exclude an underlying lesion. 2. Soft tissue density in the right major fissure is decreased in size since the prior study, and likely represents complicated loculated fissural fluid. There is a trace free right pleural effusion. 3. Moderate centrilobular emphysema. Moderate to severe cardiomegaly. Changes of pulmonary arterial hypertension. DATE: 09/02/19 0926 ECHOCARDIOGRAM ECHOCARDIOGRAM <Conclusion> Limited echo to evaluate LV function. Left ventricle systolic function is mild to moderately impaired. The Ejection Fraction is 40%. Septal motion consistent with conduction abnormality. There is no evidence of significant pericardial effusion. DATE: 05/03/19 1523 ASSESSMENT/PLAN ASSESSMENT/PLAN 1. Acute on chronic respiratory failure, multifactorial secondary to AECOPD, CHF 2. Acute on chronic systolic/diastolic CHF 3. SSS/ NICM s/p BiV PPM/ASSISTANT ANALYST-P (Biotronik); prior LVEF 40% Device check revealed 25% AFIB burden, normal function, BiV pacing 100%. Starting to have fluid overload per thoracic impedance. 5. PAFIB; presently AV pacing 6. HTN: controlled 7. CKD3 8. Chronic Substance abuse; cocaine and marijuana use. 9. Tobaccoism 10. PUI Recommendations 1. Restart GDMT Continue toprol, norvasc, lisinopril. Eliquis for stroke prophylaxis. 2. Lasix therapy 3. Poor prognosis with high readmission rate due to severe noncompliance especially in regards to continued substance abuse. Discussed again cessation 5. O2 to titrate, Bipap. Pulmonary consult LORRAINE VILLEGAS APRN Nov 24, 2019 08:01
--- NOTE | 2019-11-24 08:12 | PDOC ---
Infectious Disease Note Vital Sign Vital Signs Vital Signs Date Time Temp Pulse Resp B/P (MAP) Pulse Ox O2 Delivery O2 Flow Rate FiO2 11/24/19 07:21 97 BiPAP/CPAP 11/24/19 06:00 63 14 127/78 (94) 11/24/19 04:00 97.5 97.5 11/23/19 21:30 15.0 Labs Lab Laboratory Tests Test 11/23/19 16:58 11/23/19 17:39 11/23/19 18:59 11/24/19 07:35 White Blood Count 6.6 x10^3/uL (4.0-11.0) Red Blood Count 4.03 x10^6/uL (4.30-5.70) Hemoglobin 12.4 g/dL (13.0-17.5) Hematocrit 37.4 % (39.0-53.0) Mean Corpuscular Volume 93 fL (79-100) Mean Corpuscular Hemoglobin 31 pg (25-35) Mean Corpuscular Hemoglobin Concent 33 g/dL (31-37) Red Cell Distribution Width 16.3 % (11.5-14.5) Platelet Count 121 x10^3/uL (140-400) Neutrophils (%) (Auto) 78 % (31-73) Lymphocytes (%) (Auto) 10 % (24-48) Monocytes (%) (Auto) 9 % (0-9) Eosinophils (%) (Auto) 2 % (0-3) Basophils (%) (Auto) 1 % (0-3) Neutrophils # (Auto) 5.2 x10^3/uL (1.8-7.7) Lymphocytes # (Auto) 0.7 x10^3/uL (1.0-4.8) Monocytes # (Auto) 0.6 x10^3/uL (0.0-1.1) Eosinophils # (Auto) 0.1 x10^3/uL (0.0-0.7) Basophils # (Auto) 0.0 x10^3/uL (0.0-0.2) Sodium Level 141 mmol/L (136-145) Potassium Level 3.9 mmol/L (3.5-5.1) Chloride Level 105 mmol/L (98-107) Carbon Dioxide Level 35 mmol/L (21-32) Anion Gap 1 (6-14) Blood Urea Nitrogen 15 mg/dL (8-26) Creatinine 1.3 mg/dL (0.7-1.3) Estimated GFR (Cockcroft-Gault) 67.5 Glucose Level 104 mg/dL (70-99) Calcium Level 9.6 mg/dL (8.5-10.1) Troponin I Quantitative 0.040 ng/mL (0.000-0.055) CU-Ium-H-Type Natriuretic Peptide 4839 pg/mL (0-124) Bedside Venous pH 7.30 (7.32-7.42) Bedside Venous pCO2 64 mmHg (41-51) Bedside Venous pO2 76 mmHg (20-40) Venous Blood HCO3 32 mmol/L (24-28) POC Venous O2 Saturation (Burke) 93 % Bedside FiO2 21.0 O2 Saturation 65 % (92-99) 94 % (92-99) Arterial Blood pH 7.34 (7.35-7.45) 7.25 (7.35-7.45) Arterial Blood pCO2 at Patient Temp 57 mmHg (35-46) 67 mmHg (35-46) Arterial Blood pO2 at Patient Temp < 42 mmHg (65-108) 78 mmHg (65-108) Arterial Blood HCO3 30 mmol/L (21-28) 29 mmol/L (21-28) Arterial Blood Base Excess 3 mmol/L (-3-3) 0 mmol/L (-3-3) Oxyhemoglobin 64.1 % 92.8 % Methemoglobin 0.4 % (0.0-1.9) 0.4 % (0.0-1.9) Carbon Monoxide, Quantitative 1.5 % (0.0-1.9) 0.6 % (0.0-1.9) FiO2 40 50% Objective Assessment pt seen, consult dictated Plan Plan of Care / GUICHO RAMOS MD Nov 24, 2019 08:12
[2019-11-24] MEDS: APIXABAN 5 MG TABLET. PO SCH ×2 (08:52→21:20)
[2019-11-24] MEDS: POTASSIUM CHLORIDE 10 MEQ TABLET.ER. PO SCH (08:52)
[2019-11-24] MEDS: FUROSEMIDE 20 MG TABLET PO SCH ×2 (08:53→09:43)
[2019-11-24] MEDS: LISINOPRIL 20 MG TABLET PO SCH (08:53)
[2019-11-24] MEDS: METOPROLOL SUCC 24HR ER 25 MG TAB.ER.24H. PO SCH (08:54)
[2019-11-24] MEDS: DOXYCYCLINE HYCLATE 100 MG in IV DEXTROSE 5% 100ML 100 ML IV SCH ×2 (08:55→21:21)
[2019-11-24] MEDS: amLODIPine BESYLATE 10 MG TABLET PO SCH (08:57)
[2019-11-24] MEDS ORDERED: FUROSEMIDE 40 MG/4 ML VIAL. IVP ONE ×2 (09:00→10:30)
--- NOTE | 2019-11-24 09:24 | EKG ---
[facility] [address] [place] [address] Test Date: 2019-11-23 Test Time: 17:05:39 Pat Name: NEIL EWING Department: Room: Gender: M Patient Registration Supervisor: : [id number] Requested By: ABHISHEK CABALLERO Order Number: [id number] Reading MD: Measurements Intervals [place] Rate: 64 P: 90 [place]: 136 QRS: -152 QRSD: 182 T: 33 QT: 470 QTc: 490 Interpretive Statements SINUS RHYTHM VENTRICULAR PREMATURE COMPLEX(ES) WPW PATTERN, TYPE A ABNORMAL RIGHT SUPERIOR AXIS DEVIATION ABNORMAL ECG RI6.01 No previous ECG available for comparison
--- NOTE | 2019-11-24 09:27 | CONS ---
DATE OF CONSULTATION: 11/24/2019 REQUESTING PHYSICIAN: Desi Aden DO REASON FOR CONSULTATION: Pulmonary infection, COPD exacerbation and antibiotic management. HISTORY OF PRESENT ILLNESS: This is a 64-year-old -[place] gentleman with history of multiple medical problems and multiple admissions, who came in with shortness of breath. The patient is noted to have pulmonary infiltrate. The patient apparently had been short of breath for several days. Denies any fever, denies any nausea, vomiting, or diarrhea, though has been doing drugs including cocaine. The patient is requiring BiPAP support right now. PAST MEDICAL HISTORY: Positive for COPD, CHF, hypertension, pacemaker in place, cardiomyopathy, hyperlipidemia, hypertension, has had ventral hernia surgery, appendicectomy, AICD in place, and knee surgery. SOCIAL HISTORY: Positive for smoking, positive for alcohol use as well as positive for drug use. ALLERGIES: No known drug allergies. CURRENT MEDICATIONS: Reviewed. REVIEW OF SYSTEMS: As per HPI, all other systems reviewed and are negative. PHYSICAL EXAMINATION: GENERAL: Alert gentleman who is in mild respiratory distress, on a BiPAP. VITAL SIGNS: Stable, afebrile. HEENT: NAD. NECK: Supple, no JVP, no lymphadenopathy. LUNGS: Clear. HEART: S1, S2 regular. ABDOMEN: Soft, nontender, no organomegaly. EXTREMITIES: No edema, cyanosis. SKIN: Unremarkable. NEUROLOGIC: The patient is alert, awake and appropriate. No focal neurologic deficit. LABORATORY DATA: White count is 6.6, hemoglobin 12.4, and platelets are 121,000. BUN and creatinine is 15 and 1.3. BNP is 4839. Urinalysis unremarkable. COVID-19 is pending. Chest x-ray showed pulmonary infiltrate. CHF versus infection cannot be ruled out. IMPRESSION: 1. Respiratory failure. 2. Pulmonary infiltrate/pneumonia. 3. Congestive heart failure. 4. COVID-19 pending. 5. Drug use. RECOMMENDATIONS: We would use Rocephin and doxycycline. Supportive care. Wait for the COVID-19, diuresis and we will continue to follow. Thank you very much, Dr. Aden, for giving me the opportunity to participate in this patient's care. GUICHO RAMOS MD DR: LEO/yumiko JOB#: [id number] / [id number]
--- NOTE | 2019-11-24 09:51 | CONS ---
DATE OF CONSULTATION: PULMONARY CONSULTATION ATTENDING PHYSICIAN: Dr. Aden. REASON FOR CONSULTATION: Respiratory failure. HISTORY OF PRESENT ILLNESS: The patient is very well known to us. He is a 64-year-old male who has a past medical history of hypertension, CKD, long history of tobacco use and also ongoing marijuana and cocaine use and along with cardiomyopathy with an EF of 40-45%. He was brought into the hospital with complaint of shortness of breath. He has some lower extremity edema. He said he has not quit cigarettes and also has not quit cocaine. He was noted to be in worsening congestive heart failure compared to previous chest x-ray. His ABG showed a pH of 7.34, pCO2 of 57 and a pO2 of less than 42. He was placed on BiPAP. This morning, ABG showed a pH of 7.25, pCO2 of 67, a pO2 of 78. He does not appear to be in any obvious respiratory distress. Denies any headaches. No nausea, vomiting. No diarrhea. No chest pain. PAST MEDICAL HISTORY: Extensive includin. History of COPD, likely severe with ongoing tobaccoism. 2. History of cardiomyopathy, EF of 40-45%. 3. History of congestive heart failure. 4. History of ongoing marijuana and cocaine abuse. 5. History of complete heart block, status post BIV pacemaker. PAST SURGICAL HISTORY: Status post pacemaker, appendectomy, and hernia repair. FAMILY HISTORY: Coronary artery disease, diabetes, and hypertension. SOCIAL HISTORY: Ongoing tobaccoism, alcohol, marijuana and cocaine use. ALLERGIES: LEVAQUIN. REVIEW OF SYSTEMS: A 12-point system obtained. Pertinent positives discussed in my history of present illness, otherwise noncontributory. All systems that were negative were reviewed as well. PHYSICAL EXAMINATION: VITAL SIGNS: Reviewed. Blood pressure stable, pulse ox 97% on BiPAP. HEENT: Sclerae nonicteric. NECK: Supple. LUNGS: With diminished breath sounds. CARDIOVASCULAR: With a regular rate. ABDOMEN: Soft. EXTREMITIES: With pitting edema. LABORATORY DATA: Labs were reviewed. ABG discussed in my history of present illness. BUN 15, creatinine 1.3. ProBNP 4839. White cell count 6.6, hemoglobin 12.4, and platelets are 121. IMPRESSION: 1. Acute on chronic hypoxic and hypercapnic respiratory failure secondary to acute on chronic systolic and diastolic heart failure in addition acute exacerbation of chronic obstructive pulmonary disease. 2. The patient with nonischemic cardiomyopathy. 3. The patient with ongoing tobacco use and likely severe chronic obstructive pulmonary disease. 4. Prior history of pneumonias. 5. History of marijuana and cocaine abuse. Continues to do cocaine. 6. Prior history of Enterobacter bacteremia. RECOMMENDATIONS: 1. I have discussed with the patient regarding smoking cessation as well as cocaine cessation. He does not appear to be motivated to do that. 2. I have made adjustments on the BiPAP. Avoid hyperoxia. I have increased IPAP and follow ABGs in few hours. 3. Diuresis. 4. BiPAP p.r.n. during the day and bedtime. 5. Follow cardiology recommendations. 6. Monitor chest x-ray. 7. DVT prophylaxis, the patient is currently on Eliquis. 8. Empiric antibiotic were initiated. Clinically, less likely pneumonia. We will deescalate soon. 9. Discussed with RN and RT. Critical care time 37 minutes. SHARON ROJAS MD DR: MAYCO/yumiko JOB#: [id number] / [id number]
[2019-11-24] MEDS: ANTI-COAG MONITOR BY PHARMACY. MC PRN (10:11)
--- NOTE | 2019-11-24 10:31 | NUR ---
SS following for discharge planning. SS reviewed pt chart and discussed with pt RN. Pt is from home and is currently on the BIPAP. Pt has home oxygen at home. Pt on IV Rocephin and IV Doxycycline. COVID19 pending. SS will continue to follow for discharge planning.
[2019-11-24 10:58] LABS: HEMATOCRIT 38.8 % (39.0-53.0); HEMOGLOBIN 12.6 g/dL (13.0-17.5); RED BLOOD COUNT 4.17 x10^6/uL (4.30-5.70); RED CELL DISTRIBUTION WIDTH 15.8 % (11.5-14.5); WHITE BLOOD COUNT 5.9 x10^3/uL (4.0-11.0)
[2019-11-24 11:05] LABS: CALCIUM 9.6 mg/dL (8.5-10.1); CREATININE 1.4 mg/dL (0.7-1.3); GFR 61.9; MAGNESIUM 2.1 mg/dL (1.8-2.4); POTASSIUM 4.1 mmol/L (3.5-5.1)
[2019-11-24 12:38] LABS: BASE EXCESS ABG 5 mmol/L (-3-3); HCO3 ABG 34 mmol/L (21-28); PO2 ABG 83 mmHg (65-108); SAT O2 ABG 96 % (92-99)
[2019-11-24 12:43] LABS: FIO2 ABG 45; PCO2 ABG 70 mmHg (35-46)
[2019-11-24] MEDS ORDERED: POTASSIUM CHLORIDE 20 MEQ TABLET.ER. PO ONE (13:00)
[2019-11-24] MEDS ORDERED: ALBUTEROL SULFATE 2.5 MG/3 ML NEBU. NEB PRN (13:45)
[2019-11-24] MEDS ORDERED: DEXTROSE 50% 25 GM / 50ML DISP.SYRIN. IV PRN (13:45)
[2019-11-24] MEDS: IPRATRPIUM/ALBUTEROL 0.5/2.5MG 3 ML NEBU. NEB SCH ×3 (15:43→23:30)
[2019-11-24] MEDS: INSULIN LISPRO 300 UNITS/3 ML VIAL. SQ SCH ×2 (17:00→21:00)
[2019-11-24] MEDS: cefTRIAXone IV Push 2 GM VIAL. IVP SCH (17:13)
--- NOTE | 2019-11-24 17:25 | NUR ---
pt transferred from ICU to room 512. Received report from MAURISIO Chiang. Pt transported via wheelchair and all belongings left with patient at the time of transfer. Black phone power plant mechanic plugged into wall, cell phone handed to patient and bag of clothing in green belonging bag placed at the bedside.
[2019-11-24] MEDS: LACTOBACILLUS RHAMNOSUS GG 1 CAPSULE. PO SCH (21:20)
[2019-11-24] MEDS: SIMVASTATIN 20 MG TABLET PO SCH (21:23)
[2019-11-25 03:05] VITALS: BP 123/72
[2019-11-25] MEDS: IPRATRPIUM/ALBUTEROL 0.5/2.5MG 3 ML NEBU. NEB SCH ×6 (04:00→23:41)
[2019-11-25 07:00] VITALS: BP 133/89
[2019-11-25] MEDS: INSULIN LISPRO 300 UNITS/3 ML VIAL. SQ SCH ×4 (08:00→21:00)
--- NOTE | 2019-11-25 08:26 | RAD ---
PORTABLE CHEST 1V History: CHF Comparison: November 23, 2019 Findings: Single view of the chest is submitted. There is again scattered airspace opacity of the right hemithorax other than some sparing near the apex, increased at the right lung base in the interval. There is a very small right pleural effusion as seen previously. There is improved aeration of the left lung base, some hazy airspace and interstitial opacity of the left similar. Pericardial cardiac silhouette is again enlarged. There is again left electronic cardiac device. There is atherosclerotic calcification near aortic arch. There is no pneumothorax. There is again fullness of the right hilum. Impression: 1. There is persistent airspace opacity bilaterally greater on the right, somewhat increased at the right lung base. Findings could be due to edema and/or infiltrate. There is again very small right pleural effusion. There is somewhat improved aeration of the left lung base. 2. There is again enlargement of the pericardial cardiac silhouette. Electronically signed by: Abdullahi Acevedo MD (11/25/2019 8:23 AM) [id number]
[2019-11-25] MEDS: LISINOPRIL 20 MG TABLET PO SCH (09:24)
[2019-11-25] MEDS: amLODIPine BESYLATE 10 MG TABLET PO SCH (09:24)
[2019-11-25] MEDS: LACTOBACILLUS RHAMNOSUS GG 1 CAPSULE. PO SCH ×2 (09:24→20:58)
[2019-11-25] MEDS: POTASSIUM CHLORIDE 10 MEQ TABLET.ER. PO SCH (09:24)
[2019-11-25] MEDS: FUROSEMIDE 20 MG TABLET PO SCH (09:24)
[2019-11-25] MEDS: APIXABAN 5 MG TABLET. PO SCH ×2 (09:26→20:58)
[2019-11-25] MEDS: METOPROLOL SUCC 24HR ER 25 MG TAB.ER.24H. PO SCH (09:26)
[2019-11-25] MEDS: DOXYCYCLINE HYCLATE 100 MG in IV DEXTROSE 5% 100ML 100 ML IV SCH ×2 (09:27→20:58)
--- NOTE | 2019-11-25 10:16 | NUR ---
SS following up with discharge planning. SS reviewed pt chart and discussed with pt RN. Pt is currently requiring oxygen at 6 Liters NC. Pt on IV Rocephin and IV Doxycycline. Pt has home oxygen at home at 6 Liters NC. COVID19 negative. Discharge plan is to home when ready. SS will continue to follow for discharge planning.
--- NOTE | 2019-11-25 10:40 | PDOC ---
CARDIO Progress Notes Date and Time Date of Service 11/25/2019 Time of Evaluation 0930 Subjective Subjective: No Chest Pain, No shortness of breath, No Palpitations Vitals Vitals Vital Signs Date Time Temp Pulse Resp B/P (MAP) Pulse Ox O2 Delivery O2 Flow Rate FiO2 11/25/19 09:26 71 133/89 11/25/19 08:30 Nasal Cannula 6.0 11/25/19 07:24 95 11/25/19 07:00 98.3 18 98.3 Weight Weight [ ] Input and Output Intake and Output Intake and Output 11/25/19 06:59 Intake Total 1180 ml Output Total 1100 ml Balance 80 ml Intake Oral 1080 ml IV Total 100 ml Output Urine Total 1100 ml Laboratory Labs Laboratory Tests Test 11/24/19 12:30 11/24/19 17:16 11/24/19 20:55 11/25/19 08:49 O2 Saturation 96 % (92-99) Arterial Blood pH 7.31 (7.35-7.45) Arterial Blood pCO2 at Patient Temp 70 mmHg (35-46) Arterial Blood pO2 at Patient Temp 83 mmHg (65-108) Arterial Blood HCO3 34 mmol/L (21-28) Arterial Blood Base Excess 5 mmol/L (-3-3) FiO2 45 Glucose (Fingerstick) 117 mg/dL (70-99) 125 mg/dL (70-99) 148 mg/dL (70-99) Physical Exam HEENT: Neck Supple W Full Motion Chest: Symmetric LUNGS: Other (diminished) Heart: RRR (V paced with underlying AFIB) Abdomen: Soft N/T Extremities: Other (2+ pedal edema) Neurology: alert, oriented, follow commands Assessment Assessment 1. Acute on chronic respiratory failure, multifactorial secondary to AECOPD, CHF, negative for covid 2. Acute on chronic systolic/diastolic CHF 3. SSS/ NICM s/p BiV PPM/OPTIMIZATION SPECIALIST-P (Biotronik); prior LVEF 40% Device check revealed 25% AFIB burden, normal function, BiV pacing 100%. Starting to have fluid overload per thoracic impedance. 5. PAFIB; presently V pacing 6. HTN: controlled 7. CKD3 8. Chronic Substance abuse; cocaine and marijuana use. 9. Tobaccoism Recommendations 1. Restart GDMT Continue toprol, norvasc, lisinopril. Eliquis for stroke prophylaxis. 2. Lasix therapy 3. Poor halfway prognosis with high readmission rate due to severe noncompliance especially in regards to continued substance abuse. Discussed again cessation 5. O2 to titrate, Bipap PRN Justicifation of Admission Dx: Justifications for Admission: Justification of Admission Dx: N/A Respiratory Failure: Severe Resp Distress LORRAINE VILLEGAS SEASONAL CLERK Nov 25, 2019 10:39
--- NOTE | 2019-11-25 10:54 | PDOC ---
Infectious Disease Note Subjective Subjective Patient is feeling better ROS ROS No nausea vomiting diarrhea chest pain shortness of breath Vital Sign Vital Signs Vital Signs Date Time Temp Pulse Resp B/P (MAP) Pulse Ox O2 Delivery O2 Flow Rate FiO2 11/25/19 09:26 71 133/89 11/25/19 08:30 Nasal Cannula 6.0 11/25/19 07:24 95 11/25/19 07:00 98.3 18 98.3 Physical Exam PHYSICAL EXAM GENERAL: Alert gentleman not in any distress VITAL SIGNS: Stable, afebrile. HEENT: NAD. NECK: Supple, no JVP, no lymphadenopathy. LUNGS: Clear. HEART: S1, S2 regular. ABDOMEN: Soft, nontender, no organomegaly. EXTREMITIES: No edema, cyanosis. SKIN: Unremarkable. NEUROLOGIC: The patient is alert, awake and appropriate. No focal neurologic deficit. . Labs Lab Laboratory Tests Test 11/24/19 12:30 11/24/19 17:16 11/24/19 20:55 11/25/19 08:49 O2 Saturation 96 % (92-99) Arterial Blood pH 7.31 (7.35-7.45) Arterial Blood pCO2 at Patient Temp 70 mmHg (35-46) Arterial Blood pO2 at Patient Temp 83 mmHg (65-108) Arterial Blood HCO3 34 mmol/L (21-28) Arterial Blood Base Excess 5 mmol/L (-3-3) FiO2 45 Glucose (Fingerstick) 117 mg/dL (70-99) 125 mg/dL (70-99) 148 mg/dL (70-99) Objective Assessment IMPRESSION: 1. Respiratory failure. 2. Pulmonary infiltrate/pneumonia. 3. Congestive heart failure. 4. COVID-19 pending. 5. Drug use. Plan Plan of Care Advised against drug use Patient can be discharged on p.o. antibiotics, Augmentin GUICHO RAMOS MD Nov 25, 2019 10:54
--- NOTE | 2019-11-25 10:57 | PDOC ---
PULMONARY PROGRESS NOTES DATE: 11/25/19 TIME: 10:54 Subjective fully awake, no ranjeet used BIPAP qhs Vitals Vital Signs Date Time Temp Pulse Resp B/P (MAP) Pulse Ox O2 Delivery O2 Flow Rate FiO2 11/25/19 09:26 71 133/89 11/25/19 08:30 Nasal Cannula 6.0 11/25/19 07:24 95 11/25/19 07:00 98.3 18 98.3 General: Alert, Oriented X4, No acute distress Lungs: Clear Cardiovascular: S1, S2 Abdomen: Soft, Non-tender, Other Extremities: Other (trace edema) Labs Laboratory Tests Test 11/23/19 16:58 11/23/19 17:05 11/23/19 17:39 11/23/19 18:59 White Blood Count 6.6 x10^3/uL (4.0-11.0) Red Blood Count 4.03 x10^6/uL (4.30-5.70) Hemoglobin 12.4 g/dL (13.0-17.5) Hematocrit 37.4 % (39.0-53.0) Mean Corpuscular Volume 93 fL (79-100) Mean Corpuscular Hemoglobin 31 pg (25-35) Mean Corpuscular Hemoglobin Concent 33 g/dL (31-37) Red Cell Distribution Width 16.3 % (11.5-14.5) Platelet Count 121 x10^3/uL (140-400) Neutrophils (%) (Auto) 78 % (31-73) Lymphocytes (%) (Auto) 10 % (24-48) Monocytes (%) (Auto) 9 % (0-9) Eosinophils (%) (Auto) 2 % (0-3) Basophils (%) (Auto) 1 % (0-3) Neutrophils # (Auto) 5.2 x10^3/uL (1.8-7.7) Lymphocytes # (Auto) 0.7 x10^3/uL (1.0-4.8) Monocytes # (Auto) 0.6 x10^3/uL (0.0-1.1) Eosinophils # (Auto) 0.1 x10^3/uL (0.0-0.7) Basophils # (Auto) 0.0 x10^3/uL (0.0-0.2) Sodium Level 141 mmol/L (136-145) Potassium Level 3.9 mmol/L (3.5-5.1) Chloride Level 105 mmol/L (98-107) Carbon Dioxide Level 35 mmol/L (21-32) Anion Gap 1 (6-14) Blood Urea Nitrogen 15 mg/dL (8-26) Creatinine 1.3 mg/dL (0.7-1.3) Estimated GFR (Cockcroft-Gault) 67.5 Glucose Level 104 mg/dL (70-99) Calcium Level 9.6 mg/dL (8.5-10.1) Troponin I Quantitative 0.040 ng/mL (0.000-0.055) ER-Geg-U-Type Natriuretic Peptide 4839 pg/mL (0-124) Coronavirus (PCR) Not detected (Not Detected) Bedside Venous pH 7.30 (7.32-7.42) Bedside Venous pCO2 64 mmHg (41-51) Bedside Venous pO2 76 mmHg (20-40) Venous Blood HCO3 32 mmol/L (24-28) POC Venous O2 Saturation (Burke) 93 % Bedside FiO2 21.0 O2 Saturation 65 % (92-99) Arterial Blood pH 7.34 (7.35-7.45) Arterial Blood pCO2 at Patient Temp 57 mmHg (35-46) Arterial Blood pO2 at Patient Temp < 42 mmHg (65-108) Arterial Blood HCO3 30 mmol/L (21-28) Arterial Blood Base Excess 3 mmol/L (-3-3) Oxyhemoglobin 64.1 % Methemoglobin 0.4 % (0.0-1.9) Carbon Monoxide, Quantitative 1.5 % (0.0-1.9) FiO2 40 Test 11/24/19 07:35 11/24/19 10:30 11/24/19 12:30 11/24/19 17:16 O2 Saturation 94 % (92-99) 96 % (92-99) Arterial Blood pH 7.25 (7.35-7.45) 7.31 (7.35-7.45) Arterial Blood pCO2 at Patient Temp 67 mmHg (35-46) 70 mmHg (35-46) Arterial Blood pO2 at Patient Temp 78 mmHg (65-108) 83 mmHg (65-108) Arterial Blood HCO3 29 mmol/L (21-28) 34 mmol/L (21-28) Arterial Blood Base Excess 0 mmol/L (-3-3) 5 mmol/L (-3-3) Oxyhemoglobin 92.8 % Methemoglobin 0.4 % (0.0-1.9) Carbon Monoxide, Quantitative 0.6 % (0.0-1.9) FiO2 50% 45 White Blood Count 5.9 x10^3/uL (4.0-11.0) Red Blood Count 4.17 x10^6/uL (4.30-5.70) Hemoglobin 12.6 g/dL (13.0-17.5) Hematocrit 38.8 % (39.0-53.0) Mean Corpuscular Volume 93 fL (79-100) Mean Corpuscular Hemoglobin 30 pg (25-35) Mean Corpuscular Hemoglobin Concent 32 g/dL (31-37) Red Cell Distribution Width 15.8 % (11.5-14.5) Platelet Count 125 x10^3/uL (140-400) Sodium Level 140 mmol/L (136-145) Potassium Level 4.1 mmol/L (3.5-5.1) Chloride Level 103 mmol/L (98-107) Carbon Dioxide Level 34 mmol/L (21-32) Anion Gap 3 (6-14) Blood Urea Nitrogen 15 mg/dL (8-26) Creatinine 1.4 mg/dL (0.7-1.3) Estimated GFR (Cockcroft-Gault) 61.9 Glucose Level 214 mg/dL (70-99) Calcium Level 9.6 mg/dL (8.5-10.1) Magnesium Level 2.1 mg/dL (1.8-2.4) Procalcitonin < 0.10 ng/mL (0.00-0.10) Glucose (Fingerstick) 117 mg/dL (70-99) Test 11/24/19 20:55 11/25/19 08:49 Glucose (Fingerstick) 125 mg/dL (70-99) 148 mg/dL (70-99) Laboratory Tests Test 11/24/19 12:30 11/24/19 17:16 11/24/19 20:55 11/25/19 08:49 O2 Saturation 96 % (92-99) Arterial Blood pH 7.31 (7.35-7.45) Arterial Blood pCO2 at Patient Temp 70 mmHg (35-46) Arterial Blood pO2 at Patient Temp 83 mmHg (65-108) Arterial Blood HCO3 34 mmol/L (21-28) Arterial Blood Base Excess 5 mmol/L (-3-3) FiO2 45 Glucose (Fingerstick) 117 mg/dL (70-99) 125 mg/dL (70-99) 148 mg/dL (70-99) Medications Active Scripts Medications Dose Route/Sig Max Daily Dose Days Date Category Dose Instructions Levaquin (Levofloxacin) 750 Mg Tablet 1 Tab PO DAILY 10 09/15/19 Rx Culturelle (Lactobacillus Rhamnosus Gg) 1 Each Cap.sprink 1 Cap PO BID 10 09/15/19 Rx Eliquis (Apixaban) 5 Mg Tablet 5 Mg PO BID 08/02/19 Reported Toprol Xl (Metoprolol Succinate) 25 Mg Tab.er.24h 1 Tab PO DAILY 30 08/02/19 Reported Lasix (Furosemide) 20 Mg Tablet 1 Tab PO DAILY 30 05/10/19 Rx Lisinopril 40 Mg Tablet 20 Mg PO DAILY 30 05/10/19 Rx Proair Hfa (Albuterol Sulfate) 8.5 Gm Hfa.aer.ad 2.5 Mg NEB PRN Q2HR PRN 30 05/10/19 Rx Duoneb 0.5-3(2.5) Mg/3 Ml (Albuterol/Ipratropium) 3 Ml Ampul.neb 3 Ml NEB Q4HRS 30 05/09/19 Rx Albuterol Sulfate Neb Soln (Albuterol Sulfate) 0.63 Mg/3 Ml Vial.neb 0.63 Mg NEB PRN Q4HRS PRN 30 10/13/16 Rx NEEDED Zocor (Simvastatin) 20 Mg Tablet 20 Mg PO HS 10/27/14 Reported NEXT DOSE DUE TONIGHT AT BEDTIME Amlodipine Besylate 10 Mg Tablet 10 Mg PO DAILY 06/13/13 Reported NEXT DOSE DUE IN AM Potassium Chloride 10 Meq Tab.er.prt 20 Meq PO DAILY 06/13/13 Reported NEXT DOSE DUE IN AM Impression . 1. Acute on chronic hypoxic and hypercapnic respiratory failure secondary to acute on chronic systolic and diastolic heart failure in addition acute exacerbation of chronic obstructive pulmonary disease. 2. The patient with nonischemic cardiomyopathy. 3. The patient with ongoing tobacco use and likely severe chronic obstructive pulmonary disease. 4. Prior history of pneumonias. 5. History of marijuana and cocaine abuse. Continues to do cocaine. 6. Prior history of Enterobacter bacteremia. Plan . 1. I have discussed with the patient regarding smoking cessation as well as cocaine cessation. He does not appear to be motivated to do that. 2. QHS BiPAP. Avoid hyperoxia. 3. Diuresis per cardiology 4. BiPAP p.r.n. during the day 5. Follow cardiology recommendations. 6. chest x-ray 11/24 mild improvement left base/ CHF 7. DVT prophylaxis, the patient is currently on Eliquis. 8. Empiric antibiotic were initiated. Clinically, less likely pneumonia. We will deescalate soon. 9. Discussed with SHARON WILSON MD Nov 25, 2019 10:57
[2019-11-25 11:00] VITALS: BP 141/90
[2019-11-25] MEDS ORDERED: FUROSEMIDE 40 MG/4 ML VIAL. IVP ONE (11:00)
--- NOTE | 2019-11-25 11:13 | PDOC ---
[facility] [facility] PROGRESS NOTE Date of Service DOS: DATE: 11/25/19 TIME: 11:05 Chief Complaint Chief Complaint Acute on chronic respiratory failure, multifactorial secondary to PNA, AECOPD, mild acute on chronic systolic CHF Gram-negative possibly gram-positive pneumonia Possible aspiration pneumonia Mild Acute on Chronic systolic/diastolic CHF Chronic mild troponin elevation: within his range, no acute changes per EKG. demand mediated with continued use of cocaine SSS CHF - 40% ejection H/o A. fib HTN CKD3 Chronic Substance abuse; cocaine and marijuana use. Last use 3 days ago Tobaccoism PUI -SARS-COVID negative. 09/10 and again today negative History of Present Illness History of Present Illness 11/25/2019 Patient seen and examined Patient is resting comfortably in NAD Discussed with RN Charts reviewed Mr James is a 63 yo M w/ PMHx CHB s/p BiV pacemaker, HTN, CKD2, tobacco abuse, COPD on 4-5L home O2, CHF EF 40-45, active cocaine user, ETOH, and marijuana abuse who p/w shortness of breath that was fairly sudden onset 11/23/2019. after smoking multiple substances. He had some back pain. No anterior chest pain. He was trying to use his home nebulizer, states it wasn't helping. He does not know if he has had weight gain, does not have a scale at home. Has LE edema that is much worse as well as orthopnea and PND, not sleeping well. He has a mild cough, no hemoptysis, no weight loss. No headaches, no nausea, vomiting or diarrhea. He was afebrile, has had no recent travel or sick contacts. Seen with severe dyspnea and ABG 7.25/67/78. BNP 4839, Trop 0.04, WBC 6.6, Hb 12.9, Platelets 129, Cr 1.3, K 3.9 He continues to do cocaine and smoke and has known COPD Chest x-ray showing CHF and possible pneumonia, admitted to ICU on BIPAP for respiratory failure. Seen on BIPAP in ICU, appears comfortable on it. Afebrile. Still hypoxic. COVID 19 negative Vitals/I&O Vitals/I&O: Vital Signs Date Time Temp Pulse Resp B/P (MAP) Pulse Ox O2 Delivery O2 Flow Rate FiO2 11/25/19 09:26 71 133/89 8/7/20 08:30 Nasal Cannula 6.0 11/25/19 07:24 95 11/25/19 07:00 98.3 18 98.3 I & O 11/24/19 11/24/19 11/25/19 15:00 23:00 07:00 Intake Total 700 ml 240 ml 240 ml Output Total 500 ml 200 ml 400 ml Balance 200 ml 40 ml -160 ml Physical Exam Physical Exam: GENERAL: Alert gentleman not in any distress VITAL SIGNS: Stable, afebrile. HEENT: NAD. NECK: Supple, no JVP, no lymphadenopathy. LUNGS: Clear. HEART: S1, S2 regular. ABDOMEN: Soft, nontender, no organomegaly. EXTREMITIES: No edema, cyanosis. SKIN: Unremarkable. NEUROLOGIC: The patient is alert, awake and appropriate. No focal neurologic deficit. . General: Alert, Oriented X3, Cooperative, No acute distress Heart: Regular rate, Normal S1, Normal S2 Lungs: Clear Abdomen: Normal bowel sounds, Soft Extremities: No edema Skin: No breakdown Labs Labs: Laboratory Tests Test 11/24/19 12:30 11/24/19 17:16 11/24/19 20:55 11/25/19 08:49 O2 Saturation 96 % (92-99) Arterial Blood pH 7.31 (7.35-7.45) Arterial Blood pCO2 at Patient Temp 70 mmHg (35-46) Arterial Blood pO2 at Patient Temp 83 mmHg (65-108) Arterial Blood HCO3 34 mmol/L (21-28) Arterial Blood Base Excess 5 mmol/L (-3-3) FiO2 45 Glucose (Fingerstick) 117 mg/dL (70-99) 125 mg/dL (70-99) 148 mg/dL (70-99) Review of Systems Review of Systems: All systems are otherwise negative Assessment and Plan Assessmemt and Plan Problems Medical Problems: (1) Acute respiratory failure with hypoxia Status: Acute (2) Community acquired pneumonia Status: Acute (3) COPD exacerbation Status: Acute Assessment Acute on chronic respiratory failure, multifactorial secondary to PNA, AECOPD, mild acute on chronic systolic CHF Gram-negative possibly gram-positive pneumonia Possible aspiration pneumonia Mild Acute on Chronic systolic/diastolic CHF Chronic mild troponin elevation: within his range, no acute changes per EKG. demand mediated with continued use of cocaine SSS CHF - 40% ejection H/o A. fib HTN CKD3 Chronic Substance abuse; cocaine and marijuana use. Last use 3 days ago Tobaccoism PUI -SARS-COVID negative. 09/10 and again today negative Plan Continue oxygen supplementation IV antibiotics Breathing treatments DVT prophylaxis Home Meds Continued discussion on drug use cessation - counseling provided Appreciate subspecialists input Comment Review of Relevant I have reviewed the following items rishi (where applicable) has been applied. Medications: Current Medications Medications (Trade) Dose Ordered Sig/Dex Route PRN Reason Start Time Stop Time Status Last Admin Dose Admin Simvastatin (Zocor) 20 mg HS PO 11/24/19 21:00 11/24/19 21:23 Ceftriaxone Sodium (Rocephin) 2 gm Q24H IVP 11/24/19 17:00 11/24/19 17:13 Lactobacillus Rhamnosus (Culturelle) 1 cap BID PO 11/24/19 21:00 11/25/19 09:24 Potassium Chloride (Klor-Con) 40 meq 1X ONCE PO 11/24/19 13:00 11/24/19 13:01 DC 11/24/19 13:30 Albuterol/ Ipratropium (Duoneb) 3 ml Q4HRS NEB 11/24/19 16:00 11/25/19 07:24 Justicifation of Admission Dx: Justifications for Admission: Justification of Admission Dx: N/A Respiratory Failure: Severe Resp Distress KINA CONTRERAS III DO Nov 25, 2019 11:13
[2019-11-25 11:26] LABS: CALCIUM 9.6 mg/dL (8.5-10.1); CREATININE 1.6 mg/dL (0.7-1.3); GFR 53.1; MAGNESIUM 2.2 mg/dL (1.8-2.4); POTASSIUM 4.2 mmol/L (3.5-5.1)
[2019-11-25 15:00] VITALS: BP 143/91
[2019-11-25] MEDS: cefTRIAXone IV Push 2 GM VIAL. IVP SCH (18:11)
[2019-11-25 19:00] VITALS: BP 120/78
[2019-11-25] MEDS: SIMVASTATIN 20 MG TABLET PO SCH (20:58)
[2019-11-25 23:00] VITALS: BP 133/89
[2019-11-26] MEDS: IPRATRPIUM/ALBUTEROL 0.5/2.5MG 3 ML NEBU. NEB SCH ×5 (02:39→21:02)
[2019-11-26 03:00] VITALS: BP 120/88
[2019-11-26 07:00] VITALS: BP 140/88
[2019-11-26] MEDS: INSULIN LISPRO 300 UNITS/3 ML VIAL. SQ SCH ×4 (08:00→21:00)
--- NOTE | 2019-11-26 08:03 | PDOC ---
PULMONARY PROGRESS NOTES DATE: 11/26/19 TIME: 08:02 Subjective used bipap last night, sob better, has occ cough, is on home 02 6 lpm Vitals Vital Signs Date Time Temp Pulse Resp B/P (MAP) Pulse Ox O2 Delivery O2 Flow Rate FiO2 11/26/19 07:37 94 Nasal Cannula 5.0 11/26/19 03:00 98.0 68 20 120/88 (99) 98.0 ROS: No Nausea, No Chest Pain General: Alert, Oriented X4, No acute distress HEENT: Other (nc at [facility] [place] ) Lungs: Other (deminished bs) Cardiovascular: S1, S2 Abdomen: Soft, Non-tender, Other Neuro Exam: Alert Extremities: Other (trace edema) Skin: Warm Labs Laboratory Tests Test 11/24/19 10:30 11/24/19 12:30 11/24/19 17:16 11/24/19 20:55 White Blood Count 5.9 x10^3/uL (4.0-11.0) Red Blood Count 4.17 x10^6/uL (4.30-5.70) Hemoglobin 12.6 g/dL (13.0-17.5) Hematocrit 38.8 % (39.0-53.0) Mean Corpuscular Volume 93 fL (79-100) Mean Corpuscular Hemoglobin 30 pg (25-35) Mean Corpuscular Hemoglobin Concent 32 g/dL (31-37) Red Cell Distribution Width 15.8 % (11.5-14.5) Platelet Count 125 x10^3/uL (140-400) Sodium Level 140 mmol/L (136-145) Potassium Level 4.1 mmol/L (3.5-5.1) Chloride Level 103 mmol/L (98-107) Carbon Dioxide Level 34 mmol/L (21-32) Anion Gap 3 (6-14) Blood Urea Nitrogen 15 mg/dL (8-26) Creatinine 1.4 mg/dL (0.7-1.3) Estimated GFR (Cockcroft-Gault) 61.9 Glucose Level 214 mg/dL (70-99) Calcium Level 9.6 mg/dL (8.5-10.1) Magnesium Level 2.1 mg/dL (1.8-2.4) Procalcitonin < 0.10 ng/mL (0.00-0.10) O2 Saturation 96 % (92-99) Arterial Blood pH 7.31 (7.35-7.45) Arterial Blood pCO2 at Patient Temp 70 mmHg (35-46) Arterial Blood pO2 at Patient Temp 83 mmHg (65-108) Arterial Blood HCO3 34 mmol/L (21-28) Arterial Blood Base Excess 5 mmol/L (-3-3) FiO2 45 Glucose (Fingerstick) 117 mg/dL (70-99) 125 mg/dL (70-99) Test 11/25/19 08:49 11/25/19 10:55 11/25/19 11:56 11/25/19 16:58 Glucose (Fingerstick) 148 mg/dL (70-99) 119 mg/dL (70-99) 136 mg/dL (70-99) Sodium Level 142 mmol/L (136-145) Potassium Level 4.2 mmol/L (3.5-5.1) Chloride Level 105 mmol/L (98-107) Carbon Dioxide Level 36 mmol/L (21-32) Anion Gap 1 (6-14) Blood Urea Nitrogen 19 mg/dL (8-26) Creatinine 1.6 mg/dL (0.7-1.3) Estimated GFR (Cockcroft-Gault) 53.1 Glucose Level 99 mg/dL (70-99) Calcium Level 9.6 mg/dL (8.5-10.1) Magnesium Level 2.2 mg/dL (1.8-2.4) Test 11/25/19 20:47 11/26/19 07:49 Glucose (Fingerstick) 102 mg/dL (70-99) 133 mg/dL (70-99) Laboratory Tests Test 11/25/19 08:49 11/25/19 10:55 11/25/19 11:56 11/25/19 16:58 Glucose (Fingerstick) 148 mg/dL (70-99) 119 mg/dL (70-99) 136 mg/dL (70-99) Sodium Level 142 mmol/L (136-145) Potassium Level 4.2 mmol/L (3.5-5.1) Chloride Level 105 mmol/L (98-107) Carbon Dioxide Level 36 mmol/L (21-32) Anion Gap 1 (6-14) Blood Urea Nitrogen 19 mg/dL (8-26) Creatinine 1.6 mg/dL (0.7-1.3) Estimated GFR (Cockcroft-Gault) 53.1 Glucose Level 99 mg/dL (70-99) Calcium Level 9.6 mg/dL (8.5-10.1) Magnesium Level 2.2 mg/dL (1.8-2.4) Test 11/25/19 20:47 11/26/19 07:49 Glucose (Fingerstick) 102 mg/dL (70-99) 133 mg/dL (70-99) Medications Active Scripts Medications Dose Route/Sig Max Daily Dose Days Date Category Dose Instructions Levaquin (Levofloxacin) 750 Mg Tablet 1 Tab PO DAILY 10 09/15/19 Rx Culturelle (Lactobacillus Rhamnosus Gg) 1 Each Cap.sprink 1 Cap PO BID 10 09/15/19 Rx Eliquis (Apixaban) 5 Mg Tablet 5 Mg PO BID 08/02/19 Reported Toprol Xl (Metoprolol Succinate) 25 Mg Tab.er.24h 1 Tab PO DAILY 30 08/02/19 Reported Lasix (Furosemide) 20 Mg Tablet 1 Tab PO DAILY 30 05/10/19 Rx Lisinopril 40 Mg Tablet 20 Mg PO DAILY 30 05/10/19 Rx Proair Hfa (Albuterol Sulfate) 8.5 Gm Hfa.aer.ad 2.5 Mg NEB PRN Q2HR PRN 30 05/10/19 Rx Duoneb 0.5-3(2.5) Mg/3 Ml (Albuterol/Ipratropium) 3 Ml Ampul.neb 3 Ml NEB Q4HRS 30 05/09/19 Rx Albuterol Sulfate Neb Soln (Albuterol Sulfate) 0.63 Mg/3 Ml Vial.neb 0.63 Mg NEB PRN Q4HRS PRN 30 10/13/16 Rx NEEDED Zocor (Simvastatin) 20 Mg Tablet 20 Mg PO HS 10/27/14 Reported NEXT DOSE DUE TONIGHT AT BEDTIME Amlodipine Besylate 10 Mg Tablet 10 Mg PO DAILY 06/13/13 Reported NEXT DOSE DUE IN AM Potassium Chloride 10 Meq Tab.er.prt 20 Meq PO DAILY 06/13/13 Reported NEXT DOSE DUE IN AM Impression . 1. Acute on chronic hypoxic and hypercapnic respiratory failure secondary to acute on chronic systolic and diastolic heart failure in addition acute exacerbation of chronic obstructive pulmonary disease. 2. The patient with nonischemic cardiomyopathy. 3. The patient with ongoing tobacco use and likely severe chronic obstructive pulmonary disease. 4. Prior history of pneumonias. 5. History of marijuana and cocaine abuse. Continues to do cocaine. 6. Prior history of Enterobacter bacteremia. Plan . 1. I have discussed with the patient regarding smoking cessation as well as cocaine cessation. He does not appear to be motivated to do that. 2. QHS BiPAP. Avoid hyperoxia. 3. Diuresis per cardiology 4. BiPAP p.r.n. during the day 5. Follow cardiology recommendations. 6. chest x-ray 11/24 mild improvement left base/ CHF 7. DVT prophylaxis, the patient is currently on Eliquis. 8. Empiric antibiotic were initiated. per id 9. Discussed with pt, rt TERRI HERBERT MD Nov 26, 2019 08:03
[2019-11-26] MEDS: FUROSEMIDE 20 MG TABLET PO SCH (09:03)
[2019-11-26] MEDS: amLODIPine BESYLATE 10 MG TABLET PO SCH (09:03)
[2019-11-26] MEDS: LISINOPRIL 20 MG TABLET PO SCH (09:03)
[2019-11-26] MEDS: LACTOBACILLUS RHAMNOSUS GG 1 CAPSULE. PO SCH ×2 (09:03→21:08)
[2019-11-26] MEDS: METOPROLOL SUCC 24HR ER 25 MG TAB.ER.24H. PO SCH (09:04)
[2019-11-26] MEDS: POTASSIUM CHLORIDE 10 MEQ TABLET.ER. PO SCH (09:04)
[2019-11-26] MEDS: APIXABAN 5 MG TABLET. PO SCH ×2 (09:04→21:08)
[2019-11-26] MEDS: DOXYCYCLINE HYCLATE 100 MG in IV DEXTROSE 5% 100ML 100 ML IV SCH ×2 (09:07→21:08)
--- NOTE | 2019-11-26 10:07 | PDOC ---
PROGRESS NOTES Date of Service: DATE: 11/26/19 TIME: 10:05 Subjective Subjective Dyspnea improved Objective Objective Vital Signs Date Time Temp Pulse Resp B/P (MAP) Pulse Ox O2 Delivery O2 Flow Rate FiO2 11/26/19 09:04 69 140/88 11/26/19 07:37 94 Nasal Cannula 5.0 11/26/19 07:00 98.2 18 98.2 Intake and Output 11/26/19 07:00 Intake Total 1770 ml Output Total 2975 ml Balance -1205 ml Intake Oral 1770 ml Output Urine Total 2975 ml # Voids 1 Physical Exam Abdomen: Normal bowel sounds, Soft Heart: Regular rate, Normal S1, Normal S2 Extremities: No edema General: Alert, Oriented X3, Cooperative, No acute distress HEENT: Atraumatic Lungs: Other (Bilateral expiratory rhonchi) Neuro: Normal speech, Sensation intact Psych/Mental Status: Mental status NL, Mood NL Skin: No breakdown Assessment Assessment 1. Acute on chronic respiratory failure, multifactorial secondary to AECOPD, CHF, negative for covid. Improved since admission. Pulmonary team following. 2. Acute on chronic systolic/diastolic CHF, better compensated with diuresis. Continue current medical regimen. 3. SSS/ NICM s/p BiV PPM/SOCIAL ECONOMIST-P (Biotronik); prior LVEF 40% recent device check revealed 25% AFIB burden, normal function, BiV pacing 100%. 5. PAFIB; presently V pacing. Continue Eliquis for stroke prophylaxis. 6. HTN: controlled 7. CKD3 8. Chronic Substance abuse; cocaine and marijuana use. 9. Tobaccoism Plan Plan of Care Problems Medical Problems: (1) Acute respiratory failure with hypoxia Status: Acute (2) Community acquired pneumonia Status: Acute (3) COPD exacerbation Status: Acute Comment Review of Relevant I have reviewed the following items rishi (where applicable) has been applied. Labs Laboratory Tests Test 11/25/19 10:55 11/25/19 11:56 11/25/19 16:58 11/25/19 20:47 Sodium Level 142 mmol/L (136-145) Potassium Level 4.2 mmol/L (3.5-5.1) Chloride Level 105 mmol/L (98-107) Carbon Dioxide Level 36 mmol/L (21-32) Anion Gap 1 (6-14) Blood Urea Nitrogen 19 mg/dL (8-26) Creatinine 1.6 mg/dL (0.7-1.3) Estimated GFR (Cockcroft-Gault) 53.1 Glucose Level 99 mg/dL (70-99) Calcium Level 9.6 mg/dL (8.5-10.1) Magnesium Level 2.2 mg/dL (1.8-2.4) Glucose (Fingerstick) 119 mg/dL (70-99) 136 mg/dL (70-99) 102 mg/dL (70-99) Test 11/26/19 07:49 Glucose (Fingerstick) 133 mg/dL (70-99) Medications Current Medications Furosemide (Lasix) 40 mg 1X ONCE IVP Last administered on 11/25/19at 11:20; Start 11/25/19 at 11:00; Stop 11/25/19 at 11:01; Status DC Vitals/I & O Vital Sign - Last 24 Hours 11/25/19 11/25/19 11/25/19 11/25/19 11:00 11:32 15:00 15:35 Temp 98.1 98.0 98.1 98.0 Pulse 64 74 Resp 18 18 B/P (MAP) 141/90 (107) 143/91 (108) Pulse Ox 93 93 92 92 O2 Delivery Nasal Cannula Nasal Cannula Nasal Cannula Nasal Cannula O2 Flow Rate 6.0 6.0 6.0 6.0 11/25/19 11/25/19 11/25/19 11/25/19 19:00 19:52 20:00 20:00 Temp 98.2 98.2 Pulse 73 Resp 20 B/P (MAP) 120/78 (92) Pulse Ox 91 94 O2 Delivery Nasal Cannula Nasal Cannula Nasal Cannula O2 Flow Rate 5.0 6.0 6.0 6.0 11/25/19 11/25/19 11/26/19 11/26/19 23:00 23:42 02:39 03:00 Temp 98.7 98.0 98.7 98.0 Pulse 73 68 Resp 20 20 B/P (MAP) 133/89 (104) 120/88 (99) Pulse Ox 92 94 99 O2 Delivery Nasal Cannula Nasal Cannula BiPAP/CPAP Nasal Cannula O2 Flow Rate 5.0 6.0 5.0 11/26/19 11/26/19 11/26/19 11/26/19 07:00 07:37 09:03 09:03 Temp 98.2 98.2 Pulse 69 69 69 Resp 18 B/P (MAP) 140/88 (105) 140/88 140/88 Pulse Ox 94 94 O2 Delivery Nasal Cannula Nasal Cannula O2 Flow Rate 5.0 5.0 11/26/19 09:04 Pulse 69 B/P (MAP) 140/88 Intake and Output 11/25/19 11/25/19 11/26/19 15:00 23:00 07:00 Intake Total 350 ml 1000 ml 420 ml Output Total 1000 ml 800 ml 1175 ml Balance -650 ml 200 ml -755 ml KENIA SHEPHERD MD Nov 26, 2019 10:07
[2019-11-26 10:56] VITALS: BP 141/84
--- NOTE | 2019-11-26 11:49 | PDOC ---
PROGRESS NOTES Date of Service: DATE: 11/26/19 TIME: 11:48 Chief Complaint Chief Complaint impression Acute on chronic respiratory failure, multifactorial secondary to PNA, AECOPD, mild acute on chronic systolic CHF Gram-negative possibly gram-positive pneumonia Possible aspiration pneumonia Mild Acute on Chronic systolic/diastolic CHF Chronic mild troponin elevation: within his range, no acute changes per EKG. demand mediated with continued use of cocaine SSS/ NICM s/p BiV PPM/WELT STITCHER-P (Biotronik); prior LVEF 40% recent device check revealed 25% AFIB burden, normal function, BiV pacing 100%. PAFIB; presently V pacing. Continue Eliquis for stroke prophylaxis. SSS CHF - 40% ejection H/o A. fib HTN CKD3 Chronic Substance abuse; cocaine and marijuana use. Last use 3 days ago Tobaccoism PUI -SARS-COVID negative. 09/10 and again 11/24 negative pulmonary arterial hypertension 38 min pt exam, chart review, > 50% of time spent with exam, chart review, pt care coordination History of Present Illness History of Present Illness 11/25/2019 Patient seen and examined Patient is resting comfortably in NAD Discussed with RN Charts reviewed Mr James is a 63 yo M w/ PMHx CHB s/p BiV pacemaker, HTN, CKD2, tobacco abuse, COPD on 4-5L home O2, CHF EF 40-45, active cocaine user, ETOH, and marijuana abuse who p/w shortness of breath that was fairly sudden onset 11/23/2019. after smoking multiple substances. He had some back pain. No anterior chest pain. He was trying to use his home nebulizer, states it wasn't helping. He does not know if he has had weight gain, does not have a scale at home. Has LE edema that is much worse as well as orthopnea and PND, not sleeping well. He has a mild cough, no hemoptysis, no weight loss. No headaches, no nausea, vomiting or diarrhea. He was afebrile, has had no recent travel or sick contacts. Seen with severe dyspnea and ABG 7.25/67/78. BNP 4839, Trop 0.04, WBC 6.6, Hb 12.9, Platelets 129, Cr 1.3, K 3.9 He continues to do cocaine and smoke and has known COPD Chest x-ray showing CHF and possible pneumonia, admitted to ICU on BIPAP for respiratory failure. Seen on BIPAP in ICU, appears comfortable on it. Afebrile. Still hypoxic. COVID 19 negative Vitals Vitals Vital Signs Date Time Temp Pulse Resp B/P (MAP) Pulse Ox O2 Delivery O2 Flow Rate FiO2 11/26/19 11:39 95 Nasal Cannula 5.0 11/26/19 10:56 98.0 73 18 141/84 (103) 98.0 Physical Exam Physical Exam GENERAL: Alert gentleman not in any distress VITAL SIGNS: Stable, afebrile. HEENT: NAD. NECK: Supple, no JVP, no lymphadenopathy. LUNGS: Clear. HEART: S1, S2 regular. ABDOMEN: Soft, nontender, no organomegaly. EXTREMITIES: No edema, cyanosis. SKIN: Unremarkable. NEUROLOGIC: The patient is alert, awake and appropriate. No focal neurologic deficit. . General: Alert, Oriented X3, Cooperative, No acute distress Heart: Regular rate, Normal S1, Normal S2 Lungs: Other (deminished bs) Abdomen: Normal bowel sounds, Soft Extremities: No edema Skin: No breakdown Labs LABS PATIENT: NEIL JAMES ACCOUNT: [id number] : 1955 LOCATION: [address] [place] [address] AGE: 64 SEX: M EXAM STATUS: ADM IN ORD. PHYSICIAN: LUZ MARIA GARZON MD REASON: cough soa PROCEDURE: CT ANGIOGRAPHY CHEST EXAM: CT ANGIOGRAPHY OF THE CHEST WITH AND WITHOUT CONTRAST. HISTORY: Shortness of breath, cough. TECHNIQUE: Computed tomographic angiography of the chest was performed before and after the intravenous administration of iodinated contrast. 3-D maximum intensity projections were also performed. One or more of the following individualized dose reduction techniques were utilized for this examination: 1. Automated exposure control. 2. Adjustment of the mA and/or kV according to patient size. 3. Use of iterative reconstruction technique. COMPARISON: 07/30/2019. FINDINGS: Images of the upper abdomen reveal no acute abnormality. Bone windows reveal no suspicious lesions. No pulmonary emboli are identified. The main pulmonary artery is enlarged at 4.7 cm. There is no aortic dissection or aneurysm. There are no pathologically enlarged mediastinal or axillary lymph nodes. There is a trace right pleural effusion. There is no pericardial effusion. The heart is moderately to severely enlarged. A left-sided pacemaker has its leads in the right atrium, right ventricle and a left cardiac vein. Consolidation in the right upper lobe is consistent with pneumonia. No central obstructing lesion is identified. Previously noted groundglass infiltrates in the right lower lobe have resolved. An oval soft tissue density in the right major fissure is decreased in size measuring 4.3 x 2.3 cm as compared with 5.4 cm previously. This may be complicated loculated fissural fluid. There is moderate centrilobular and paraseptal emphysema with apical predominance. There is mild atelectasis in the bases. IMPRESSION: 1. Right upper lobe pneumonia. Follow-up to resolution is recommended to exclude an underlying lesion. 2. Soft tissue density in the right major fissure is decreased in size since the prior study, and likely represents complicated loculated fissural fluid. There is a trace free right pleural effusion. 3. Moderate centrilobular emphysema. Moderate to severe cardiomegaly. Changes of pulmonary arterial hypertension. Electronically signed by: Sheryl An MD (09/02/2019 9:26 AM) [id number] EXAM: LIMITED Two-dimensional echocardiogram with Doppler and color Doppler. Other Information Quality : Good Rhythm : CHB INDICATION Cardiomyopathy LV Function:Systolic 2D DIMENSIONS RVDd 3.8 (2.9-3.5cm) Left Atrium(2D) 4.4 (1.6-4.0cm) IVSd 1.4 (0.7-1.1cm) Aortic Root(2D) 3.3 (2.0-3.7cm) LVDd 6.3 (3.9-5.9cm) LVOT Diameter 2.4 (1.8-2.4cm) PWd 1.4 (0.7-1.1cm) LVDs 4.7 (2.5-4.0cm) FS (%) 17.0 % SV 102.7 ml LVEF(%) 35.0 (>50%) Tricuspid Valve TR P. Velocity 244cm/s RAP ESTIMATE 3mmHg TR Peak Gr. 24mmHg RVSP 27mmHg LEFT VENTRICLE The Left Ventricle is mildly dilated. There is mild concentric left ventricular hypertrophy. Left ventricle systolic function is mild to moderately impaired. The Ejection Fraction is 40%. Septal motion consistent with conduction abnormality. TRICUSPID VALVE The tricuspid valve is normal in structure and function. Doppler and Color Flow revealed physiological tricuspid regurgitation. The PA pressure was estimated at 27 mmHg. There is no tricuspid valve stenosis. GREAT VESSELS na PERICARDIAL EFFUSION There is no evidence of significant pericardial effusion. Critical Notification Critical Value: No <Conclusion> Limited echo to evaluate LV function. Left ventricle systolic function is mild to moderately impaired. The Ejection Fraction is 40%. Septal motion consistent with conduction abnormality. There is no evidence of significant pericardial effusion. Signed by : Kenia Shepherd, Electronically Approved : 05/03/2019 16:49:38 DICTATED and SIGNED BY: KENIA SHEPHERD MD DATE: 05/03/19 1523 Laboratory Tests Test 11/25/19 11:56 11/25/19 16:58 11/25/19 20:47 11/26/19 07:49 Glucose (Fingerstick) 119 mg/dL (70-99) 136 mg/dL (70-99) 102 mg/dL (70-99) 133 mg/dL (70-99) Test 11/26/19 11:23 Glucose (Fingerstick) 110 mg/dL (70-99) Assessment and Plan Assessmemt and Plan Problems Medical Problems: (1) Acute respiratory failure with hypoxia Status: Acute (2) Community acquired pneumonia Status: Acute (3) COPD exacerbation Status: Acute Comment Review of Relevant I have reviewed the following items rishi (where applicable) has been applied. Labs Laboratory Tests Test 11/24/19 12:30 11/24/19 17:16 11/24/19 20:55 11/25/19 08:49 O2 Saturation 96 % (92-99) Arterial Blood pH 7.31 (7.35-7.45) Arterial Blood pCO2 at Patient Temp 70 mmHg (35-46) Arterial Blood pO2 at Patient Temp 83 mmHg (65-108) Arterial Blood HCO3 34 mmol/L (21-28) Arterial Blood Base Excess 5 mmol/L (-3-3) FiO2 45 Glucose (Fingerstick) 117 mg/dL (70-99) 125 mg/dL (70-99) 148 mg/dL (70-99) Test 11/25/19 10:55 11/25/19 11:56 11/25/19 16:58 11/25/19 20:47 Sodium Level 142 mmol/L (136-145) Potassium Level 4.2 mmol/L (3.5-5.1) Chloride Level 105 mmol/L (98-107) Carbon Dioxide Level 36 mmol/L (21-32) Anion Gap 1 (6-14) Blood Urea Nitrogen 19 mg/dL (8-26) Creatinine 1.6 mg/dL (0.7-1.3) Estimated GFR (Cockcroft-Gault) 53.1 Glucose Level 99 mg/dL (70-99) Calcium Level 9.6 mg/dL (8.5-10.1) Magnesium Level 2.2 mg/dL (1.8-2.4) Glucose (Fingerstick) 119 mg/dL (70-99) 136 mg/dL (70-99) 102 mg/dL (70-99) Test 11/26/19 07:49 11/26/19 11:23 Glucose (Fingerstick) 133 mg/dL (70-99) 110 mg/dL (70-99) Laboratory Tests Test 11/25/19 11:56 11/25/19 16:58 11/25/19 20:47 11/26/19 07:49 Glucose (Fingerstick) 119 mg/dL (70-99) 136 mg/dL (70-99) 102 mg/dL (70-99) 133 mg/dL (70-99) Test 11/26/19 11:23 Glucose (Fingerstick) 110 mg/dL (70-99) Medications Current Medications Prednisone (Prednisone) 60 mg 1X ONCE PO Last administered on 11/23/19at 17:09; Start 11/23/19 at 17:00; Stop 11/23/19 at 17:01; Status DC Albuterol/ Ipratropium (Duoneb) 9 ml 1X ONCE NEB Last administered on 11/23/19at 17:28; Start 11/23/19 at 17:00; Stop 11/23/19 at 17:01; Status DC Sodium Chloride 1,000 ml @ 1,000 mls/hr 1X ONCE IV Last administered on 11/23/19at 17:09; Start 11/23/19 at 17:00; Stop 11/23/19 at 17:59; Status DC Levofloxacin/ Dextrose 150 ml @ 100 mls/hr 1X ONCE IV Last administered on 11/23/19at 18:49; Start 11/23/19 at 18:00; Stop 11/23/19 at 19:07; Status DC Ceftriaxone Sodium (Rocephin) 2 gm 1X ONCE IVP Last administered on 11/23/19 19:24; Start 11/23/19 at 19:15; Stop 11/23/19 at 19:16; Status DC Azithromycin 250 ml @ 250 mls/hr 1X ONCE IV Last administered on 11/23/19 19:24; Start 11/23/19 at 19:15; Stop 11/23/19 at 20:14; Status DC Amlodipine Besylate (Norvasc) 10 mg DAILY PO Last administered on 11/26/19 09:03; Start 11/24/19 at 09:00 Apixaban (Eliquis) 5 mg BID PO Last administered on 11/26/19 09:04; Start 11/24/19 at 09:00 Furosemide (Lasix) 20 mg DAILY PO Last administered on 11/26/19 09:03; Start 11/24/19 at 09:00 Lisinopril (Prinivil) 20 mg DAILY PO Last administered on 11/26/19 09:03; Start 11/24/19 at 09:00 Metoprolol Succinate (Toprol Xl) 25 mg DAILY PO Last administered on 11/26/19 09:04; Start 11/24/19 at 09:00 Potassium Chloride (Klor-Con) 20 meq [id number] PO Last administered on 11/26/19 09:04; Start 11/24/19 at 08:00 Simvastatin (Zocor) 20 mg HS PO Last administered on 11/25/19at 20:58; Start 11/24/19 at 21:00 Furosemide (Lasix) 40 mg 1X ONCE IVP Last administered on 11/24/19 08:54; Start 11/24/19 at 09:00; Stop 11/24/19 at 09:01; Status DC Ceftriaxone Sodium (Rocephin) 2 gm Q24H IVP Last administered on 11/25/19at 18:11; Start 11/24/19 at 17:00 Doxycycline Hyclate 100 mg/ Dextrose 100 ml @ 50 mls/hr Q12HR IV Last administered on 11/26/19 09:07; Start 11/24/19 at 09:00 Furosemide (Lasix) 40 mg 1X ONCE IVP Last administered on 11/24/19at 13:30; Start 11/24/19 at 10:30; Stop 11/24/19 at 10:31; Status DC Info (Anti-Coagulation Monitoring By Pharmacy) 1 each PRN DAILY PRN MC SEE COMMENTS Last administered on 11/24/19at 10:11; Start 11/24/19 at 10:00 Lactobacillus Rhamnosus (Culturelle) 1 cap BID PO Last administered on 11/26/19at 09:03; Start 11/24/19 at 21:00 Potassium Chloride (Klor-Con) 40 meq 1X ONCE PO Last administered on 11/24/19at 13:30; Start 11/24/19 at 13:00; Stop 11/24/19 at 13:01; Status DC Insulin Human Lispro (HumaLOG) 0-9 UNITS TIDWMEALHC SQ ; Start 11/24/19 at 17:00 Dextrose (Dextrose 50%-Water Syringe) 12.5 gm PRN Q15MIN PRN IV SEE COMMENTS; Start 11/24/19 at 13:45 Albuterol Sulfate (Ventolin Neb Soln) 2.5 mg PRN Q2HR PRN NEB SHORTNESS OF BREATH; Start 11/24/19 at 13:45 Albuterol/ Ipratropium (Duoneb) 3 ml Q4HRS NEB Last administered on 11/26/19at 11:37; Start 11/24/19 at 16:00 Furosemide (Lasix) 40 mg 1X ONCE IVP Last administered on 11/25/19at 11:20; Start 11/25/19 at 11:00; Stop 11/25/19 at 11:01; Status DC Active Scripts Active Levaquin (Levofloxacin) 750 Mg Tablet 1 Tab PO DAILY 10 Days Culturelle (Lactobacillus Rhamnosus Gg) 1 Each Cap.sprink 1 Cap PO BID 10 Days Lasix (Furosemide) 20 Mg Tablet 1 Tab PO DAILY 30 Days Lisinopril 40 Mg Tablet 20 Mg PO DAILY 30 Days Proair Hfa (Albuterol Sulfate) 8.5 Gm Hfa.aer.ad 2.5 Mg NEB PRN Q2HR PRN 30 Days Duoneb 0.5-3(2.5) Mg/3 Ml (Albuterol/Ipratropium) 3 Ml Ampul.neb 3 Ml NEB Q4HRS 30 Days Albuterol Sulfate Neb Soln (Albuterol Sulfate) 0.63 Mg/3 Ml Vial.neb 0.63 Mg NEB PRN Q4HRS PRN 30 Days NEEDED Reported Eliquis (Apixaban) 5 Mg Tablet 5 Mg PO BID Toprol Xl (Metoprolol Succinate) 25 Mg Tab.er.24h 1 Tab PO DAILY 30 Days Zocor (Simvastatin) 20 Mg Tablet 20 Mg PO HS NEXT DOSE DUE TONIGHT AT BEDTIME Amlodipine Besylate 10 Mg Tablet 10 Mg PO DAILY NEXT DOSE DUE IN AM Potassium Chloride 10 Meq Tab.er.prt 20 Meq PO DAILY NEXT DOSE DUE IN AM Vitals/I & O Vital Sign - Last 24 Hours 11/25/19 11/25/19 11/25/19 11/25/19 15:00 15:35 19:00 19:52 Temp 98.0 98.2 98.0 98.2 Pulse 74 73 Resp 18 20 B/P (MAP) 143/91 (108) 120/78 (92) Pulse Ox 92 92 91 94 O2 Delivery Nasal Cannula Nasal Cannula Nasal Cannula Nasal Cannula O2 Flow Rate 6.0 6.0 5.0 6.0 11/25/19 11/25/19 11/25/19 11/25/19 20:00 20:00 23:00 23:42 Temp 98.7 98.7 Pulse 73 Resp 20 B/P (MAP) 133/89 (104) Pulse Ox 92 94 O2 Delivery Nasal Cannula Nasal Cannula Nasal Cannula O2 Flow Rate 6.0 6.0 5.0 6.0 11/26/19 11/26/19 11/26/19 11/26/19 02:39 03:00 07:00 07:37 Temp 98.0 98.2 98.0 98.2 Pulse 68 69 Resp 20 18 B/P (MAP) 120/88 (99) 140/88 (105) Pulse Ox 99 94 94 O2 Delivery BiPAP/CPAP Nasal Cannula Nasal Cannula Nasal Cannula O2 Flow Rate 5.0 5.0 5.0 11/26/19 11/26/19 11/26/19 11/26/19 08:20 08:20 09:03 09:03 Pulse 69 69 B/P (MAP) 140/88 140/88 O2 Delivery Nasal Cannula O2 Flow Rate 5.0 5.0 11/26/19 11/26/19 11/26/19 09:04 10:56 11:39 Temp 98.0 98.0 Pulse 69 73 Resp 18 B/P (MAP) 140/88 141/84 (103) Pulse Ox 91 95 O2 Delivery Nasal Cannula Nasal Cannula O2 Flow Rate 5.0 5.0 Intake and Output 11/25/19 11/25/19 11/26/19 15:00 23:00 07:00 Intake Total 350 ml 1000 ml 420 ml Output Total 1000 ml 800 ml 1175 ml Balance -650 ml 200 ml -755 ml Justicifation of Admission Dx: Justifications for Admission: Justification of Admission Dx: N/A Respiratory Failure: Severe Resp Distress RANJITH RICHARDSON MD Nov 26, 2019 11:49
[2019-11-26 15:00] VITALS: BP 135/84
[2019-11-26] MEDS: cefTRIAXone IV Push 2 GM VIAL. IVP SCH (16:29)
[2019-11-26 19:00] VITALS: BP 125/86
[2019-11-26] MEDS: SIMVASTATIN 20 MG TABLET PO SCH (21:08)
[2019-11-26 23:00] VITALS: BP 143/97
[2019-11-27] MEDS: IPRATRPIUM/ALBUTEROL 0.5/2.5MG 3 ML NEBU. NEB SCH ×6 (00:25→20:04)
[2019-11-27 03:00] VITALS: BP 136/97
[2019-11-27 07:00] VITALS: BP 134/94
[2019-11-27] MEDS: INSULIN LISPRO 300 UNITS/3 ML VIAL. SQ SCH ×4 (07:45→21:00)
[2019-11-27] MEDS: DOXYCYCLINE HYCLATE 100 MG in IV DEXTROSE 5% 100ML 100 ML IV SCH (08:19)
[2019-11-27] MEDS: APIXABAN 5 MG TABLET. PO SCH ×2 (08:19→21:20)
[2019-11-27] MEDS: POTASSIUM CHLORIDE 10 MEQ TABLET.ER. PO SCH (08:19)
[2019-11-27] MEDS: LACTOBACILLUS RHAMNOSUS GG 1 CAPSULE. PO SCH ×2 (08:20→21:20)
[2019-11-27] MEDS: LISINOPRIL 20 MG TABLET PO SCH (08:20)
[2019-11-27] MEDS: METOPROLOL SUCC 24HR ER 25 MG TAB.ER.24H. PO SCH (08:20)
[2019-11-27] MEDS: amLODIPine BESYLATE 10 MG TABLET PO SCH (08:20)
[2019-11-27] MEDS: FUROSEMIDE 20 MG TABLET PO SCH (08:20)
--- NOTE | 2019-11-27 08:39 | PDOC ---
PULMONARY PROGRESS NOTES DATE: 11/27/19 TIME: 08:38 Subjective used bipap last night, feeling better, sob better, has occ cough, no sputum, is on home 02 6 lpm Vitals Vital Signs Date Time Temp Pulse Resp B/P (MAP) Pulse Ox O2 Delivery O2 Flow Rate FiO2 11/27/19 08:20 69 136/97 11/27/19 07:21 97 Nasal Cannula 5.0 11/27/19 03:00 97.8 18 97.8 ROS: No Nausea, No Chest Pain General: Alert, Oriented X4, No acute distress HEENT: Other (nc at [facility] ) Lungs: Other (deminished bs) Cardiovascular: S1, S2 Abdomen: Soft, Non-tender, Other Neuro Exam: Alert Extremities: Other (trace edema) Skin: Warm Labs Laboratory Tests Test 11/25/19 08:49 11/25/19 10:55 11/25/19 11:56 11/25/19 16:58 Glucose (Fingerstick) 148 mg/dL (70-99) 119 mg/dL (70-99) 136 mg/dL (70-99) Sodium Level 142 mmol/L (136-145) Potassium Level 4.2 mmol/L (3.5-5.1) Chloride Level 105 mmol/L (98-107) Carbon Dioxide Level 36 mmol/L (21-32) Anion Gap 1 (6-14) Blood Urea Nitrogen 19 mg/dL (8-26) Creatinine 1.6 mg/dL (0.7-1.3) Estimated GFR (Cockcroft-Gault) 53.1 Glucose Level 99 mg/dL (70-99) Calcium Level 9.6 mg/dL (8.5-10.1) Magnesium Level 2.2 mg/dL (1.8-2.4) Test 11/25/19 20:47 11/26/19 07:49 11/26/19 11:23 11/26/19 16:37 Glucose (Fingerstick) 102 mg/dL (70-99) 133 mg/dL (70-99) 110 mg/dL (70-99) 101 mg/dL (70-99) Test 11/26/19 20:50 11/27/19 07:41 Glucose (Fingerstick) 104 mg/dL (70-99) 97 mg/dL (70-99) Laboratory Tests Test 11/26/19 11:23 11/26/19 16:37 11/26/19 20:50 11/27/19 07:41 Glucose (Fingerstick) 110 mg/dL (70-99) 101 mg/dL (70-99) 104 mg/dL (70-99) 97 mg/dL (70-99) Medications Active Scripts Medications Dose Route/Sig Max Daily Dose Days Date Category Dose Instructions Levaquin (Levofloxacin) 750 Mg Tablet 1 Tab PO DAILY 10 09/15/19 Rx Culturelle (Lactobacillus Rhamnosus Gg) 1 Each Cap.sprink 1 Cap PO BID 10 09/15/19 Rx Eliquis (Apixaban) 5 Mg Tablet 5 Mg PO BID 08/02/19 Reported Toprol Xl (Metoprolol Succinate) 25 Mg Tab.er.24h 1 Tab PO DAILY 30 08/02/19 Reported Lasix (Furosemide) 20 Mg Tablet 1 Tab PO DAILY 30 05/10/19 Rx Lisinopril 40 Mg Tablet 20 Mg PO DAILY 30 05/10/19 Rx Proair Hfa (Albuterol Sulfate) 8.5 Gm Hfa.aer.ad 2.5 Mg NEB PRN Q2HR PRN 30 05/10/19 Rx Duoneb 0.5-3(2.5) Mg/3 Ml (Albuterol/Ipratropium) 3 Ml Ampul.neb 3 Ml NEB Q4HRS 30 05/09/19 Rx Albuterol Sulfate Neb Soln (Albuterol Sulfate) 0.63 Mg/3 Ml Vial.neb 0.63 Mg NEB PRN Q4HRS PRN 30 10/13/16 Rx NEEDED Zocor (Simvastatin) 20 Mg Tablet 20 Mg PO HS 10/27/14 Reported NEXT DOSE DUE TONIGHT AT BEDTIME Amlodipine Besylate 10 Mg Tablet 10 Mg PO DAILY 06/13/13 Reported NEXT DOSE DUE IN AM Potassium Chloride 10 Meq Tab.er.prt 20 Meq PO DAILY 06/13/13 Reported NEXT DOSE DUE IN AM Impression . 1. Acute on chronic hypoxic and hypercapnic respiratory failure secondary to acute on chronic systolic and diastolic heart failure in addition acute exacerbation of chronic obstructive pulmonary disease. 2. The patient with nonischemic cardiomyopathy. 3. The patient with ongoing tobacco use and likely severe chronic obstructive pulmonary disease. 4. Prior history of pneumonias. 5. History of marijuana and cocaine abuse. Continues to do cocaine. 6. Prior history of Enterobacter bacteremia. Plan . 1. I have discussed with the patient regarding smoking cessation as well as cocaine cessation. 2. QHS BiPAP. Avoid hyperoxia. 3. Diuresis per cardiology 4. BiPAP p.r.n. during the day 5. Follow cardiology recommendations. 6. chest x-ray 11/24 mild improvement left base/ CHF 7. DVT prophylaxis, the patient is currently on Eliquis. 8. Empiric antibiotic were initiated. per id 9. Discussed with pt, rt TERRI HERBERT MD Nov 27, 2019 08:39
--- NOTE | 2019-11-27 10:55 | PDOC ---
PROGRESS NOTES Date of Service: DATE: 11/27/19 TIME: 10:55 Chief Complaint Chief Complaint impression Acute on chronic respiratory failure, multifactorial secondary to PNA, AECOPD, mild acute on chronic systolic CHF Gram-negative possibly gram-positive pneumonia Possible aspiration pneumonia Mild Acute on Chronic systolic/diastolic CHF Chronic mild troponin elevation: within his range, no acute changes per EKG. demand mediated with continued use of cocaine SSS/ NICM s/p BiV PPM/MANAGEMENT INTERN-P (Biotronik); prior LVEF 40% recent device check revealed 25% AFIB burden, normal function, BiV pacing 100%. PAFIB; presently V pacing. Continue Eliquis for stroke prophylaxis. SSS CHF - 40% ejection H/o A. fib HTN CKD3 Chronic Substance abuse; cocaine and marijuana use. Last use 3 days ago Tobaccoism PUI -SARS-COVID negative. 09/10 and again 11/24 negative pulmonary arterial hypertension cont iv rocephin, po doxy cxr in am 11/27 39 min pt exam, chart review, > 50% of time spent with exam, chart review, pt care coordination History of Present Illness History of Present Illness 11/25/2019 Patient seen and examined Patient is resting comfortably in NAD Discussed with RN Charts reviewed Mr James is a 63 yo M w/ PMHx CHB s/p BiV pacemaker, HTN, CKD2, tobacco abuse, COPD on 4-5L home O2, CHF EF 40-45, active cocaine user, ETOH, and marijuana abuse who p/w shortness of breath that was fairly sudden onset 11/23/2019. after smoking multiple substances. He had some back pain. No anterior chest pain. He was trying to use his home nebulizer, states it wasn't helping. He does not know if he has had weight gain, does not have a scale at home. Has LE edema that is much worse as well as orthopnea and PND, not sleeping well. He has a mild cough, no hemoptysis, no weight loss. No headaches, no nausea, vomiting or diarrhea. He was afebrile, has had no recent travel or sick contacts. Seen with severe dyspnea and ABG 7.25/67/78. BNP 4839, Trop 0.04, WBC 6.6, Hb 12.9, Platelets 129, Cr 1.3, K 3.9 He continues to do cocaine and smoke and has known COPD Chest x-ray showing CHF and possible pneumonia, admitted to ICU on BIPAP for respiratory failure. Seen on BIPAP in ICU, appears comfortable on it. Afebrile. Still hypoxic. COVID 19 negative Vitals Vitals Vital Signs Date Time Temp Pulse Resp B/P (MAP) Pulse Ox O2 Delivery O2 Flow Rate FiO2 11/27/19 08:20 69 136/97 11/27/19 08:10 5.0 11/27/19 08:10 Nasal Cannula 11/27/19 07:21 97 11/27/19 07:00 98.1 18 98.1 Physical Exam Physical Exam GENERAL: Alert gentleman not in any distress VITAL SIGNS: Stable, afebrile. HEENT: NAD. NECK: Supple, no JVP, no lymphadenopathy. LUNGS: Clear. HEART: S1, S2 regular. ABDOMEN: Soft, nontender, no organomegaly. EXTREMITIES: No edema, cyanosis. SKIN: Unremarkable. NEUROLOGIC: The patient is alert, awake and appropriate. No focal neurologic deficit. . General: Alert, Oriented X3, Cooperative, No acute distress Heart: Regular rate, Normal S1, Normal S2 Lungs: Other (deminished bs) Abdomen: Normal bowel sounds, Soft Extremities: No edema Skin: No breakdown Labs LABS Exam: CT of chest without contrast INDICATION: Hemoptysis, pneumonia TECHNIQUE: Sequential axial images through the chest obtained without IV contrast. Sagittal and coronal reformatted images were reconstructed from the axial data and reviewed. Comparisons: Chest x-ray same day FINDINGS: Visualized portions of the thyroid are unremarkable. No enlarged mediastinal lymph nodes are identified. Heart size is enlarged. Pacer with leads terminating the right atrium, ventricle and coronary sinus. Thoracic aorta has a normal course and caliber. Pulmonary artery is not enlarged. Airways are patent. Ground glass opacity noted throughout the left lower lobe. There is a small amount of fluid within the right major fissure as well as a small right pleural effusion. Linear bandlike opacity noted at the left lung base. No suspicious lung nodules are identified. Visualized upper abdomen is unremarkable. No suspicious osseous lesions or acute fractures. IMPRESSION: 1. Groundglass opacity throughout the right lower lobe favored represent infectious or inflammatory causes. 2. Trace right-sided pleural effusion with a small amount of fluid in the right major fissure. Exposure: One or more of the following in the visualized dose reduction techniques were utilized for this examination: 1. Automated exposure control 2. Adjustment of the MA and/or KV according to patient size 3. Use of iterative of reconstructive technique Electronically signed by: Leroy Irving MD (07/30/2019 4:25 PM) [id number] PORTABLE CHEST 1V History: CHF Comparison: November 23, 2019 Findings: Single view of the chest is submitted. There is again scattered airspace opacity of the right hemithorax other than some sparing near the apex, increased at the right lung base in the interval. There is a very small right pleural effusion as seen previously. There is improved aeration of the left lung base, some hazy airspace and interstitial opacity of the left similar. Pericardial cardiac silhouette is again enlarged. There is again left electronic cardiac device. There is atherosclerotic calcification near aortic arch. There is no pneumothorax. There is again fullness of the right hilum. Impression: 1. There is persistent airspace opacity bilaterally greater on the right, somewhat increased at the right lung base. Findings could be due to edema and/or infiltrate. There is again very small right pleural effusion. There is somewhat improved aeration of the left lung base. 2. There is again enlargement of the pericardial cardiac silhouette. Electronically signed by: Millicent Way MD (11/25/2019 8:23 AM) [id number] DICTATED and SIGNED BY: MILLICENT WAY MD DATE: 11/25/19822 Laboratory Tests Test 11/26/19 11:23 11/26/19 16:37 11/26/19 20:50 11/27/19 07:41 Glucose (Fingerstick) 110 mg/dL (70-99) 101 mg/dL (70-99) 104 mg/dL (70-99) 97 mg/dL (70-99) Assessment and Plan Assessmemt and Plan Problems Medical Problems: (1) Acute respiratory failure with hypoxia Status: Acute (2) Community acquired pneumonia Status: Acute (3) COPD exacerbation Status: Acute Comment Review of Relevant I have reviewed the following items rishi (where applicable) has been applied. Labs Laboratory Tests Test 11/25/19 11:56 11/25/19 16:58 11/25/19 20:47 11/26/19 07:49 Glucose (Fingerstick) 119 mg/dL (70-99) 136 mg/dL (70-99) 102 mg/dL (70-99) 133 mg/dL (70-99) Test 11/26/19 11:23 11/26/19 16:37 11/26/19 20:50 11/27/19 07:41 Glucose (Fingerstick) 110 mg/dL (70-99) 101 mg/dL (70-99) 104 mg/dL (70-99) 97 mg/dL (70-99) Laboratory Tests Test 11/26/19 11:23 11/26/19 16:37 11/26/19 20:50 11/27/19 07:41 Glucose (Fingerstick) 110 mg/dL (70-99) 101 mg/dL (70-99) 104 mg/dL (70-99) 97 mg/dL (70-99) Medications Current Medications Prednisone (Prednisone) 60 mg 1X ONCE PO Last administered on 11/23/19at 17:09; Start 11/23/19 at 17:00; Stop 11/23/19 at 17:01; Status DC Albuterol/ Ipratropium (Duoneb) 9 ml 1X ONCE NEB Last administered on 11/23/19at 17:28; Start 11/23/19 at 17:00; Stop 11/23/19 at 17:01; Status DC Sodium Chloride 1,000 ml @ 1,000 mls/hr 1X ONCE IV Last administered on 11/23/19at 17:09; Start 11/23/19 at 17:00; Stop 11/23/19 at 17:59; Status DC Levofloxacin/ Dextrose 150 ml @ 100 mls/hr 1X ONCE IV Last administered on 11/23/19at 18:49; Start 11/23/19 at 18:00; Stop 11/23/19 at 19:07; Status DC Ceftriaxone Sodium (Rocephin) 2 gm 1X ONCE IVP Last administered on 11/23/19at 19:24; Start 11/23/19 at 19:15; Stop 11/23/19 at 19:16; Status DC Azithromycin 250 ml @ 250 mls/hr 1X ONCE IV Last administered on 11/23/19at 19:24; Start 11/23/19 at 19:15; Stop 11/23/19 at 20:14; Status DC Amlodipine Besylate (Norvasc) 10 mg DAILY PO Last administered on 11/27/19 08:20; Start 11/24/19 at 09:00 Apixaban (Eliquis) 5 mg BID PO Last administered on 11/27/19 08:19; Start 11/24/19 at 09:00 Furosemide (Lasix) 20 mg DAILY PO Last administered on 11/27/19 08:20; Start 11/24/19 at 09:00 Lisinopril (Prinivil) 20 mg DAILY PO Last administered on 11/27/19 08:20; Start 11/24/19 at 09:00 Metoprolol Succinate (Toprol Xl) 25 mg DAILY PO Last administered on 11/27/19 08:20; Start 11/24/19 at 09:00 Potassium Chloride (Klor-Con) 20 meq DAILYWBKFT PO Last administered on 11/27/19 08:19; Start 11/24/19 at 08:00 Simvastatin (Zocor) 20 mg HS PO Last administered on 11/26/19 21:08; Start 11/24/19 at 21:00 Furosemide (Lasix) 40 mg 1X ONCE IVP Last administered on 11/24/19 08:54; Start 11/24/19 at 09:00; Stop 11/24/19 at 09:01; Status DC Ceftriaxone Sodium (Rocephin) 2 gm Q24H IVP Last administered on 11/26/19 16:29; Start 11/24/19 at 17:00 Doxycycline Hyclate 100 mg/ Dextrose 100 ml @ 50 mls/hr Q12HR IV Last administered on 11/27/19 08:19; Start 11/24/19 at 09:00 Furosemide (Lasix) 40 mg 1X ONCE IVP Last administered on 11/24/19 13:30; Start 11/24/19 at 10:30; Stop 11/24/19 at 10:31; Status DC Info (Anti-Coagulation Monitoring By Pharmacy) 1 each PRN DAILY PRN MC SEE COMMENTS Last administered on 11/24/19at 10:11; Start 11/24/19 at 10:00 Lactobacillus Rhamnosus (Culturelle) 1 cap BID PO Last administered on 11/27/19 08:20; Start 11/24/19 at 21:00 Potassium Chloride (Klor-Con) 40 meq 1X ONCE PO Last administered on 11/24/19at 13:30; Start 11/24/19 at 13:00; Stop 11/24/19 at 13:01; Status DC Insulin Human Lispro (HumaLOG) 0-9 UNITS TIDWMEALHC SQ ; Start 11/24/19 at 17:00 Dextrose (Dextrose 50%-Water Syringe) 12.5 gm PRN Q15MIN PRN IV SEE COMMENTS; Start 11/24/19 at 13:45 Albuterol Sulfate (Ventolin Neb Soln) 2.5 mg PRN Q2HR PRN NEB SHORTNESS OF BREATH; Start 11/24/19 at 13:45 Albuterol/ Ipratropium (Duoneb) 3 ml Q4HRS NEB Last administered on 11/27/19at 07:18; Start 11/24/19 at 16:00 Furosemide (Lasix) 40 mg 1X ONCE IVP Last administered on 11/25/19at 11:20; Start 11/25/19 at 11:00; Stop 11/25/19 at 11:01; Status DC Active Scripts Active Levaquin (Levofloxacin) 750 Mg Tablet 1 Tab PO DAILY 10 Days Culturelle (Lactobacillus Rhamnosus Gg) 1 Each Cap.sprink 1 Cap PO BID 10 Days Lasix (Furosemide) 20 Mg Tablet 1 Tab PO DAILY 30 Days Lisinopril 40 Mg Tablet 20 Mg PO DAILY 30 Days Proair Hfa (Albuterol Sulfate) 8.5 Gm Hfa.aer.ad 2.5 Mg NEB PRN Q2HR PRN 30 Days Duoneb 0.5-3(2.5) Mg/3 Ml (Albuterol/Ipratropium) 3 Ml Ampul.neb 3 Ml NEB Q4HRS 30 Days Albuterol Sulfate Neb Soln (Albuterol Sulfate) 0.63 Mg/3 Ml Vial.neb 0.63 Mg NEB PRN Q4HRS PRN 30 Days NEEDED Reported Eliquis (Apixaban) 5 Mg Tablet 5 Mg PO BID Toprol Xl (Metoprolol Succinate) 25 Mg Tab.er.24h 1 Tab PO DAILY 30 Days Zocor (Simvastatin) 20 Mg Tablet 20 Mg PO HS NEXT DOSE DUE TONIGHT AT BEDTIME Amlodipine Besylate 10 Mg Tablet 10 Mg PO DAILY NEXT DOSE DUE IN AM Potassium Chloride 10 Meq Tab.er.prt 20 Meq PO DAILY NEXT DOSE DUE IN AM Vitals/I & O Vital Sign - Last 24 Hours 11/26/19 11/26/19 11/26/19 11/26/19 10:56 11:39 15:00 16:02 Temp 98.0 98.2 98.0 98.2 Pulse 73 70 Resp 18 18 B/P (MAP) 141/84 (103) 135/84 (101) Pulse Ox 91 95 92 O2 Delivery Nasal Cannula Nasal Cannula Nasal Cannula Nasal Cannula O2 Flow Rate 5.0 5.0 5.0 5.0 11/26/19 11/26/19 11/26/19 11/26/19 19:00 20:00 20:00 21:02 Temp 98.4 98.4 Pulse 72 Resp 18 B/P (MAP) 125/86 (99) Pulse Ox 92 96 O2 Delivery Nasal Cannula Nasal Cannula O2 Flow Rate 5.0 6.0 6.0 11/26/19 11/27/19 11/27/19 11/27/19 23:00 00:26 00:33 01:55 Temp 98.2 98.2 Pulse 73 Resp 18 B/P (MAP) 143/97 (112) Pulse Ox 92 97 O2 Delivery Nasal Cannula BiPAP/CPAP BiPAP/CPAP O2 Flow Rate 6.0 11/27/19 11/27/19 11/27/19 11/27/19 03:00 04:10 07:00 07:21 Temp 97.8 98.1 97.8 98.1 Pulse 69 73 Resp 18 18 B/P (MAP) 136/97 (110) 134/94 (107) Pulse Ox 94 94 97 O2 Delivery BiPAP/CPAP Nasal Cannula O2 Flow Rate 5.0 11/27/19 11/27/19 11/27/19 11/27/19 08:10 08:10 08:20 08:20 Pulse 69 69 B/P (MAP) 136/97 136/97 O2 Delivery Nasal Cannula O2 Flow Rate 5.0 5.0 11/27/19 08:20 Pulse 69 B/P (MAP) 136/97 Intake and Output 11/26/19 11/26/19 11/27/19 15:00 23:00 07:00 Intake Total 240 ml 480 ml Output Total 1000 ml 700 ml 850 ml Balance -760 ml -220 ml -850 ml Justicifation of Admission Dx: Justifications for Admission: Justification of Admission Dx: N/A Respiratory Failure: Severe Resp Distress RANJITH RICHARDSON MD Nov 27, 2019 10:55
[2019-11-27 11:00] VITALS: BP 146/98
--- NOTE | 2019-11-27 11:31 | PDOC ---
Infectious Disease Note Subjective Subjective Comfortable, denies pain Denies increase SOA/F/C/S on 6L O2 Walking some Eating 100% meals ROS ROS as mentioned above Vital Sign Vital Signs Vital Signs Date Time Temp Pulse Resp B/P (MAP) Pulse Ox O2 Delivery O2 Flow Rate FiO2 11/27/19 11:00 98.3 78 18 146/98 (114) 93 98.3 11/27/19 08:10 5.0 11/27/19 08:10 Nasal Cannula Physical Exam PHYSICAL EXAM GENERAL: Propped up in bed, alert, relaxed HEENT: Oral cavity clear NECK: Supple, no JVP, no lymphadenopathy. LUNGS: Mild congestion on the right, nonlabored HEART: S1, S2 regular. ABDOMEN: Soft, nontender EXTREMITIES: No edema, cyanosis. SKIN: No rash NEUROLOGIC: Alert, awake and appropriate. No focal neurologic deficit. . Labs Lab Laboratory Tests Test 11/26/19 11:23 11/26/19 16:37 11/26/19 20:50 11/27/19 07:41 Glucose (Fingerstick) 110 mg/dL (70-99) 101 mg/dL (70-99) 104 mg/dL (70-99) 97 mg/dL (70-99) Objective Assessment Respiratory failure. Pulmonary infiltrate/pneumonia. Congestive heart failure. COVID-19 negative Drug use. ASHLEY Plan Plan of Care Change doxycycline to po Rocephin for now Advised against drug use Repeat labs in am Supportive care Attending Co-Sign The patient was seen and interviewed as well as examined at the bedside. The chart was reviewed. The case was discussed. Agree with the plan of care. MATHEW MAN APRN Nov 27, 2019 11:31 GUICHO RAMOS MD Nov 27, 2019 12:42
--- NOTE | 2019-11-27 13:39 | PDOC ---
PROGRESS NOTES Date of Service: DATE: 11/27/19 TIME: 13:39 Subjective Subjective Dyspnea improved Objective Objective Vital Signs Date Time Temp Pulse Resp B/P (MAP) Pulse Ox O2 Delivery O2 Flow Rate FiO2 11/27/19 11:26 99 Nasal Cannula 5.0 11/27/19 11:00 98.3 78 18 146/98 (114) 98.3 Intake and Output 11/27/19 06:59 Intake Total 720 ml Output Total 2550 ml Balance -1830 ml Intake Oral 720 ml Output Urine Total 2550 ml Physical Exam Abdomen: Normal bowel sounds, Soft Heart: Regular rate, Normal S1, Normal S2 Extremities: No edema General: Alert, Oriented X3, Cooperative, No acute distress HEENT: Atraumatic Lungs: Other (Bilateral expiratory rhonchi) Neuro: Normal speech, Sensation intact Psych/Mental Status: Mental status NL, Mood NL Skin: No breakdown Assessment Assessment 1. Acute on chronic respiratory failure, multifactorial secondary to AECOPD, pneumonia CHF, negative for covid. Improved since admission. Pulmonary team following. Continue antibiotics per ID team. 2. Acute on chronic systolic/diastolic CHF, better compensated with diuresis. Continue current medical regimen. 3. 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 5. PAFIB; presently V pacing. Continue Eliquis for stroke prophylaxis. 6. HTN: controlled 7. CKD3 8. Chronic Substance abuse; cocaine and marijuana use. 9. Tobaccoism Plan Plan of Care Problems Medical Problems: (1) Acute respiratory failure with hypoxia Status: Acute (2) Community acquired pneumonia Status: Acute (3) COPD exacerbation Status: Acute Comment Review of Relevant I have reviewed the following items rishi (where applicable) has been applied. Labs Laboratory Tests Test 11/26/19 16:37 11/26/19 20:50 11/27/19 07:41 11/27/19 11:32 Glucose (Fingerstick) 101 mg/dL (70-99) 104 mg/dL (70-99) 97 mg/dL (70-99) 105 mg/dL (70-99) Medications Current Medications Doxycycline Hyclate (Vibra-Tab) 100 mg BID PO ; Start 11/27/19 at 21:00 Vitals/I & O Vital Sign - Last 24 Hours 11/26/19 11/26/19 11/26/19 11/26/19 15:00 16:02 19:00 20:00 Temp 98.2 98.4 98.2 98.4 Pulse 70 72 Resp 18 18 B/P (MAP) 135/84 (101) 125/86 (99) Pulse Ox 92 92 O2 Delivery Nasal Cannula Nasal Cannula O2 Flow Rate 5.0 5.0 5.0 11/26/19 11/26/19 11/26/19 11/27/19 20:00 21:02 23:00 00:26 Temp 98.2 98.2 Pulse 73 Resp 18 B/P (MAP) 143/97 (112) Pulse Ox 96 92 97 O2 Delivery Nasal Cannula Nasal Cannula Nasal Cannula O2 Flow Rate 6.0 6.0 6.0 11/27/19 11/27/19 11/27/19 11/27/19 00:33 01:55 03:00 04:10 Temp 97.8 97.8 Pulse 69 Resp 18 B/P (MAP) 136/97 (110) Pulse Ox 94 O2 Delivery BiPAP/CPAP BiPAP/CPAP BiPAP/CPAP 11/27/19 11/27/19 11/27/19 11/27/19 07:00 07:21 08:10 08:10 Temp 98.1 98.1 Pulse 73 Resp 18 B/P (MAP) 134/94 (107) Pulse Ox 94 97 O2 Delivery Nasal Cannula Nasal Cannula O2 Flow Rate 5.0 5.0 5.0 11/27/19 11/27/19 11/27/19 11/27/19 08:20 08:20 08:20 11:00 Temp 98.3 98.3 Pulse 69 69 69 78 Resp 18 B/P (MAP) 136/97 136/97 136/97 146/98 (114) Pulse Ox 93 11/27/19 11:26 Pulse Ox 99 O2 Delivery Nasal Cannula O2 Flow Rate 5.0 Intake and Output 11/26/19 11/26/19 11/27/19 14:59 22:59 06:59 Intake Total 240 ml 480 ml Output Total 1000 ml 700 ml 850 ml Balance -760 ml -220 ml -850 ml KENIA SHEPHERD MD Nov 27, 2019 13:39
[2019-11-27 15:00] VITALS: BP 119/80
[2019-11-27] MEDS: cefTRIAXone IV Push 2 GM VIAL. IVP SCH (16:59)
[2019-11-27 19:00] VITALS: BP 130/77
[2019-11-27] MEDS: DOXYCYCLINE HYCLATE 100 MG TABLET PO SCH (21:20)
[2019-11-27] MEDS: SIMVASTATIN 20 MG TABLET PO SCH (21:20)
[2019-11-27 23:00] VITALS: BP 124/80
[2019-11-28] MEDS: IPRATRPIUM/ALBUTEROL 0.5/2.5MG 3 ML NEBU. NEB SCH ×6 (01:10→20:22)
[2019-11-28 03:00] VITALS: BP 124/80
[2019-11-28 05:29] LABS: BASO # 0.1 x10^3/uL (0.0-0.2); BASO % 1 % (0-3); EOS # 0.2 x10^3/uL (0.0-0.7); EOS % 3 % (0-3); HEMATOCRIT 38.2 % (39.0-53.0); HEMOGLOBIN 12.7 g/dL (13.0-17.5); LYMPH # 0.8 x10^3/uL (1.0-4.8); LYMPH % 15 % (24-48); MEAN CORPUSCULAR HEMOGLOBIN 30 pg (25-35); MEAN CORPUSCULAR HGB CONC 33 g/dL (31-37); MEAN CORPUSCULAR VOLUME 91 fL (79-100); MONO # 0.7 x10^3/uL (0.0-1.1); MONO % 12 % (0-9); NEUT # 3.8 x10^3/uL (1.8-7.7); NEUT % 69 % (31-73); PLATELET COUNT 132 x10^3/uL (140-400); RED BLOOD COUNT 4.19 x10^6/uL (4.30-5.70); RED CELL DISTRIBUTION WIDTH 16.1 % (11.5-14.5); WHITE BLOOD COUNT 5.6 x10^3/uL (4.0-11.0)
[2019-11-28 05:42] LABS: CALCIUM 9.5 mg/dL (8.5-10.1); CREATININE 1.1 mg/dL (0.7-1.3); GFR 81.8; POTASSIUM 3.9 mmol/L (3.5-5.1)
[2019-11-28 07:00] VITALS: BP 145/95
[2019-11-28] MEDS: INSULIN LISPRO 300 UNITS/3 ML VIAL. SQ SCH ×4 (08:00→21:00)
[2019-11-28] MEDS: FUROSEMIDE 20 MG TABLET PO SCH (08:32)
[2019-11-28] MEDS: APIXABAN 5 MG TABLET. PO SCH ×2 (08:32→21:20)
[2019-11-28] MEDS: DOXYCYCLINE HYCLATE 100 MG TABLET PO SCH ×2 (08:32→21:20)
[2019-11-28] MEDS: LACTOBACILLUS RHAMNOSUS GG 1 CAPSULE. PO SCH ×2 (08:32→21:19)
[2019-11-28] MEDS: METOPROLOL SUCC 24HR ER 25 MG TAB.ER.24H. PO SCH (08:33)
[2019-11-28] MEDS: amLODIPine BESYLATE 10 MG TABLET PO SCH (08:33)
[2019-11-28] MEDS: LISINOPRIL 20 MG TABLET PO SCH (08:33)
[2019-11-28] MEDS: POTASSIUM CHLORIDE 10 MEQ TABLET.ER. PO SCH (08:34)
--- NOTE | 2019-11-28 10:05 | PDOC ---
PROGRESS NOTES Date of Service: DATE: 11/28/19 TIME: 10:04 Chief Complaint Chief Complaint impression Acute on chronic respiratory failure, multifactorial secondary to PNA, AECOPD, mild acute on chronic systolic CHF Gram-negative possibly gram-positive pneumonia Possible aspiration pneumonia Mild Acute on Chronic systolic/diastolic CHF Chronic mild troponin elevation: within his range, no acute changes per EKG. demand mediated with continued use of cocaine SSS/ NICM s/p BiV PPM/SALT MANAGER-P (Biotronik); prior LVEF 40% recent device check revealed 25% AFIB burden, normal function, BiV pacing 100%. PAFIB; presently V pacing. Continue Eliquis for stroke prophylaxis. SSS CHF - 40% ejection H/o A. fib HTN CKD3 Chronic Substance abuse; cocaine and marijuana use. Last use 3 days ago Tobaccoism PUI -SARS-COVID negative. 09/10 and again 11/24 negative pulmonary arterial hypertension cont iv rocephin, po doxy ct chest 11/27 39 min pt exam, chart review, > 50% of time spent with exam, chart review, pt care coordination History of Present Illness History of Present Illness 11/27 Patient seen and examined Patient is resting comfortably in NAD Discussed with RN Charts reviewed ct chest today Mr James is a 63 yo M w/ PMHx CHB s/p BiV pacemaker, HTN, CKD2, tobacco abuse, COPD on 4-5L home O2, CHF EF 40-45, active cocaine user, ETOH, and marijuana abuse who p/w shortness of breath that was fairly sudden onset 11/23/2019. after smoking multiple substances. He had some back pain. No anterior chest pain. He was trying to use his home nebulizer, states it wasn't helping. He does not know if he has had weight gain, does not have a scale at home. Has LE edema that is much worse as well as orthopnea and PND, not sleeping well. He has a mild cough, no hemoptysis, no weight loss. No headaches, no nausea, vomiting or diarrhea. He was afebrile, has had no recent travel or sick contacts. Seen with severe dyspnea and ABG 7.25/67/78. BNP 4839, Trop 0.04, WBC 6.6, Hb 12.9, Platelets 129, Cr 1.3, K 3.9 He continues to do cocaine and smoke and has known COPD Chest x-ray showing CHF and possible pneumonia, admitted to ICU on BIPAP for respiratory failure. Seen on BIPAP in ICU, appears comfortable on it. Afebrile. Still hypoxic. COVID 19 negative Vitals Vitals Vital Signs Date Time Temp Pulse Resp B/P (MAP) Pulse Ox O2 Delivery O2 Flow Rate FiO2 11/28/19 08:33 70 145/95 11/28/19 07:48 96 Nasal Cannula 6.0 11/28/19 07:00 98.1 18 98.1 Physical Exam Physical Exam GENERAL: Propped up in bed, alert, relaxed HEENT: Oral cavity clear NECK: Supple, no JVP, no lymphadenopathy. LUNGS: Mild congestion on the right, nonlabored HEART: S1, S2 regular. ABDOMEN: Soft, nontender EXTREMITIES: No edema, cyanosis. SKIN: No rash NEUROLOGIC: Alert, awake and appropriate. No focal neurologic deficit. . General: Alert, Oriented X3, Cooperative, No acute distress Heart: Regular rate, Normal S1, Normal S2 Lungs: Other (deminished bs) Abdomen: Normal bowel sounds, Soft Extremities: No edema Skin: No breakdown Labs LABS Exam: CT of chest without contrast INDICATION: Hemoptysis, pneumonia TECHNIQUE: Sequential axial images through the chest obtained without IV contrast. Sagittal and coronal reformatted images were reconstructed from the axial data and reviewed. Comparisons: Chest x-ray same day FINDINGS: Visualized portions of the thyroid are unremarkable. No enlarged mediastinal lymph nodes are identified. Heart size is enlarged. Pacer with leads terminating the right atrium, ventricle and coronary sinus. Thoracic aorta has a normal course and caliber. Pulmonary artery is not enlarged. Airways are patent. Ground glass opacity noted throughout the left lower lobe. There is a small amount of fluid within the right major fissure as well as a small right pleural effusion. Linear bandlike opacity noted at the left lung base. No suspicious lung nodules are identified. Visualized upper abdomen is unremarkable. No suspicious osseous lesions or acute fractures. IMPRESSION: 1. Groundglass opacity throughout the right lower lobe favored represent infectious or inflammatory causes. 2. Trace right-sided pleural effusion with a small amount of fluid in the right major fissure. Exposure: One or more of the following in the visualized dose reduction techniques were utilized for this examination: 1. Automated exposure control 2. Adjustment of the MA and/or KV according to patient size 3. Use of iterative of reconstructive technique Electronically signed by: Leroy Irving MD (07/30/2019 4:25 PM) [id number] PORTABLE CHEST 1V History: CHF Comparison: November 23, 2019 Findings: Single view of the chest is submitted. There is again scattered airspace opacity of the right hemithorax other than some sparing near the apex, increased at the right lung base in the interval. There is a very small right pleural effusion as seen previously. There is improved aeration of the left lung base, some hazy airspace and interstitial opacity of the left similar. Pericardial cardiac silhouette is again enlarged. There is again left electronic cardiac device. There is atherosclerotic calcification near aortic arch. There is no pneumothorax. There is again fullness of the right hilum. Impression: 1. There is persistent airspace opacity bilaterally greater on the right, somewhat increased at the right lung base. Findings could be due to edema and/or infiltrate. There is again very small right pleural effusion. There is somewhat improved aeration of the left lung base. 2. There is again enlargement of the pericardial cardiac silhouette. Electronically signed by: Millicent Way MD (11/25/2019 8:23 AM) [id number] DICTATED and SIGNED BY: MILLICENT WAY MD DATE: 11/25/19822 Laboratory Tests Test 11/27/19 11:32 11/27/19 16:40 11/27/19 21:48 11/28/19 05:15 Glucose (Fingerstick) 105 mg/dL (70-99) 109 mg/dL (70-99) 96 mg/dL (70-99) White Blood Count 5.6 x10^3/uL (4.0-11.0) Red Blood Count 4.19 x10^6/uL (4.30-5.70) Hemoglobin 12.7 g/dL (13.0-17.5) Hematocrit 38.2 % (39.0-53.0) Mean Corpuscular Volume 91 fL (79-100) Mean Corpuscular Hemoglobin 30 pg (25-35) Mean Corpuscular Hemoglobin Concent 33 g/dL (31-37) Red Cell Distribution Width 16.1 % (11.5-14.5) Platelet Count 132 x10^3/uL (140-400) Neutrophils (%) (Auto) 69 % (31-73) Lymphocytes (%) (Auto) 15 % (24-48) Monocytes (%) (Auto) 12 % (0-9) Eosinophils (%) (Auto) 3 % (0-3) Basophils (%) (Auto) 1 % (0-3) Neutrophils # (Auto) 3.8 x10^3/uL (1.8-7.7) Lymphocytes # (Auto) 0.8 x10^3/uL (1.0-4.8) Monocytes # (Auto) 0.7 x10^3/uL (0.0-1.1) Eosinophils # (Auto) 0.2 x10^3/uL (0.0-0.7) Basophils # (Auto) 0.1 x10^3/uL (0.0-0.2) Sodium Level 143 mmol/L (136-145) Potassium Level 3.9 mmol/L (3.5-5.1) Chloride Level 105 mmol/L (98-107) Carbon Dioxide Level 37 mmol/L (21-32) Anion Gap 1 (6-14) Blood Urea Nitrogen 15 mg/dL (8-26) Creatinine 1.1 mg/dL (0.7-1.3) Estimated GFR (Cockcroft-Gault) 81.8 Glucose Level 93 mg/dL (70-99) Calcium Level 9.5 mg/dL (8.5-10.1) Test 11/28/19 07:54 Glucose (Fingerstick) 120 mg/dL (70-99) Assessment and Plan Assessmemt and Plan Problems Medical Problems: (1) Acute respiratory failure with hypoxia Status: Acute (2) Community acquired pneumonia Status: Acute (3) COPD exacerbation Status: Acute Comment Review of Relevant I have reviewed the following items rishi (where applicable) has been applied. Labs Laboratory Tests Test 11/26/19 11:23 11/26/19 16:37 11/26/19 20:50 11/27/19 07:41 Glucose (Fingerstick) 110 mg/dL (70-99) 101 mg/dL (70-99) 104 mg/dL (70-99) 97 mg/dL (70-99) Test 11/27/19 11:32 11/27/19 16:40 11/27/19 21:48 11/28/19 05:15 Glucose (Fingerstick) 105 mg/dL (70-99) 109 mg/dL (70-99) 96 mg/dL (70-99) White Blood Count 5.6 x10^3/uL (4.0-11.0) Red Blood Count 4.19 x10^6/uL (4.30-5.70) Hemoglobin 12.7 g/dL (13.0-17.5) Hematocrit 38.2 % (39.0-53.0) Mean Corpuscular Volume 91 fL (79-100) Mean Corpuscular Hemoglobin 30 pg (25-35) Mean Corpuscular Hemoglobin Concent 33 g/dL (31-37) Red Cell Distribution Width 16.1 % (11.5-14.5) Platelet Count 132 x10^3/uL (140-400) Neutrophils (%) (Auto) 69 % (31-73) Lymphocytes (%) (Auto) 15 % (24-48) Monocytes (%) (Auto) 12 % (0-9) Eosinophils (%) (Auto) 3 % (0-3) Basophils (%) (Auto) 1 % (0-3) Neutrophils # (Auto) 3.8 x10^3/uL (1.8-7.7) Lymphocytes # (Auto) 0.8 x10^3/uL (1.0-4.8) Monocytes # (Auto) 0.7 x10^3/uL (0.0-1.1) Eosinophils # (Auto) 0.2 x10^3/uL (0.0-0.7) Basophils # (Auto) 0.1 x10^3/uL (0.0-0.2) Sodium Level 143 mmol/L (136-145) Potassium Level 3.9 mmol/L (3.5-5.1) Chloride Level 105 mmol/L (98-107) Carbon Dioxide Level 37 mmol/L (21-32) Anion Gap 1 (6-14) Blood Urea Nitrogen 15 mg/dL (8-26) Creatinine 1.1 mg/dL (0.7-1.3) Estimated GFR (Cockcroft-Gault) 81.8 Glucose Level 93 mg/dL (70-99) Calcium Level 9.5 mg/dL (8.5-10.1) Test 11/28/19 07:54 Glucose (Fingerstick) 120 mg/dL (70-99) Laboratory Tests Test 11/27/19 11:32 11/27/19 16:40 11/27/19 21:48 11/28/19 05:15 Glucose (Fingerstick) 105 mg/dL (70-99) 109 mg/dL (70-99) 96 mg/dL (70-99) White Blood Count 5.6 x10^3/uL (4.0-11.0) Red Blood Count 4.19 x10^6/uL (4.30-5.70) Hemoglobin 12.7 g/dL (13.0-17.5) Hematocrit 38.2 % (39.0-53.0) Mean Corpuscular Volume 91 fL (79-100) Mean Corpuscular Hemoglobin 30 pg (25-35) Mean Corpuscular Hemoglobin Concent 33 g/dL (31-37) Red Cell Distribution Width 16.1 % (11.5-14.5) Platelet Count 132 x10^3/uL (140-400) Neutrophils (%) (Auto) 69 % (31-73) Lymphocytes (%) (Auto) 15 % (24-48) Monocytes (%) (Auto) 12 % (0-9) Eosinophils (%) (Auto) 3 % (0-3) Basophils (%) (Auto) 1 % (0-3) Neutrophils # (Auto) 3.8 x10^3/uL (1.8-7.7) Lymphocytes # (Auto) 0.8 x10^3/uL (1.0-4.8) Monocytes # (Auto) 0.7 x10^3/uL (0.0-1.1) Eosinophils # (Auto) 0.2 x10^3/uL (0.0-0.7) Basophils # (Auto) 0.1 x10^3/uL (0.0-0.2) Sodium Level 143 mmol/L (136-145) Potassium Level 3.9 mmol/L (3.5-5.1) Chloride Level 105 mmol/L (98-107) Carbon Dioxide Level 37 mmol/L (21-32) Anion Gap 1 (6-14) Blood Urea Nitrogen 15 mg/dL (8-26) Creatinine 1.1 mg/dL (0.7-1.3) Estimated GFR (Cockcroft-Gault) 81.8 Glucose Level 93 mg/dL (70-99) Calcium Level 9.5 mg/dL (8.5-10.1) Test 11/28/19 07:54 Glucose (Fingerstick) 120 mg/dL (70-99) Medications Current Medications Prednisone (Prednisone) 60 mg 1X ONCE PO Last administered on 11/23/19 17:09; Start 11/23/19 at 17:00; Stop 11/23/19 at 17:01; Status DC Albuterol/ Ipratropium (Duoneb) 9 ml 1X ONCE NEB Last administered on 11/23/19 17:28; Start 11/23/19 at 17:00; Stop 11/23/19 at 17:01; Status DC Sodium Chloride 1,000 ml @ 1,000 mls/hr 1X ONCE IV Last administered on 11/23/19 17:09; Start 11/23/19 at 17:00; Stop 11/23/19 at 17:59; Status DC Levofloxacin/ Dextrose 150 ml @ 100 mls/hr 1X ONCE IV Last administered on 11/23/19 18:49; Start 11/23/19 at 18:00; Stop 11/23/19 at 19:07; Status DC Ceftriaxone Sodium (Rocephin) 2 gm 1X ONCE IVP Last administered on 11/23/19 19:24; Start 11/23/19 at 19:15; Stop 11/23/19 at 19:16; Status DC Azithromycin 250 ml @ 250 mls/hr 1X ONCE IV Last administered on 11/23/19 19:24; Start 11/23/19 at 19:15; Stop 11/23/19 at 20:14; Status DC Amlodipine Besylate (Norvasc) 10 mg DAILY PO Last administered on 11/28/19 08:33; Start 11/24/19 at 09:00 Apixaban (Eliquis) 5 mg BID PO Last administered on 11/28/19 08:32; Start 11/24/19 at 09:00 Furosemide (Lasix) 20 mg DAILY PO Last administered on 11/28/19 08:32; Start 11/24/19 at 09:00 Lisinopril (Prinivil) 20 mg DAILY PO Last administered on 11/28/19 08:33; Start 11/24/19 at 09:00 Metoprolol Succinate (Toprol Xl) 25 mg DAILY PO Last administered on 11/28/19 08:33; Start 11/24/19 at 09:00 Potassium Chloride (Klor-Con) 20 meq [id number] PO Last administered on 11/28/19 08:34; Start 11/24/19 at 08:00 Simvastatin (Zocor) 20 mg HS PO Last administered on 11/27/19 21:20; Start 11/24/19 at 21:00 Furosemide (Lasix) 40 mg 1X ONCE IVP Last administered on 11/24/19 08:54; Start 11/24/19 at 09:00; Stop 11/24/19 at 09:01; Status DC Ceftriaxone Sodium (Rocephin) 2 gm Q24H IVP Last administered on 11/27/19 16:59; Start 11/24/19 at 17:00 Doxycycline Hyclate 100 mg/ Dextrose 100 ml @ 50 mls/hr Q12HR IV Last administered on 11/27/19 08:19; Start 11/24/19 at 09:00; Stop 11/27/19 at 11:28; Status DC Furosemide (Lasix) 40 mg 1X ONCE IVP Last administered on 11/24/19 13:30; Start 11/24/19 at 10:30; Stop 11/24/19 at 10:31; Status DC Info (Anti-Coagulation Monitoring By Pharmacy) 1 each PRN DAILY PRN MC SEE COMMENTS Last administered on 11/24/19at 10:11; Start 11/24/19 at 10:00 Lactobacillus Rhamnosus (Culturelle) 1 cap BID PO Last administered on 11/28/19 08:32; Start 11/24/19 at 21:00 Potassium Chloride (Klor-Con) 40 meq 1X ONCE PO Last administered on 11/24/19 13:30; Start 11/24/19 at 13:00; Stop 11/24/19 at 13:01; Status DC Insulin Human Lispro (HumaLOG) 0-9 UNITS TIDWMEALHC SQ ; Start 11/24/19 at 17:00 Dextrose (Dextrose 50%-Water Syringe) 12.5 gm PRN Q15MIN PRN IV SEE COMMENTS; Start 11/24/19 at 13:45 Albuterol Sulfate (Ventolin Neb Soln) 2.5 mg PRN Q2HR PRN NEB SHORTNESS OF BREATH; Start 11/24/19 at 13:45 Albuterol/ Ipratropium (Duoneb) 3 ml Q4HRS NEB Last administered on 11/28/19at 07:48; Start 11/24/19 at 16:00 Furosemide (Lasix) 40 mg 1X ONCE IVP Last administered on 11/25/19at 11:20; Start 11/25/19 at 11:00; Stop 11/25/19 at 11:01; Status DC Doxycycline Hyclate (Vibra-Tab) 100 mg BID PO Last administered on 11/28/19at 08:32; Start 11/27/19 at 21:00 Active Scripts Active Levaquin (Levofloxacin) 750 Mg Tablet 1 Tab PO DAILY 10 Days Culturelle (Lactobacillus Rhamnosus Gg) 1 Each Cap.sprink 1 Cap PO BID 10 Days Lasix (Furosemide) 20 Mg Tablet 1 Tab PO DAILY 30 Days Lisinopril 40 Mg Tablet 20 Mg PO DAILY 30 Days Proair Hfa (Albuterol Sulfate) 8.5 Gm Hfa.aer.ad 2.5 Mg NEB PRN Q2HR PRN 30 Days Duoneb 0.5-3(2.5) Mg/3 Ml (Albuterol/Ipratropium) 3 Ml Ampul.neb 3 Ml NEB Q4HRS 30 Days Albuterol Sulfate Neb Soln (Albuterol Sulfate) 0.63 Mg/3 Ml Vial.neb 0.63 Mg NEB PRN Q4HRS PRN 30 Days NEEDED Reported Eliquis (Apixaban) 5 Mg Tablet 5 Mg PO BID Toprol Xl (Metoprolol Succinate) 25 Mg Tab.er.24h 1 Tab PO DAILY 30 Days Zocor (Simvastatin) 20 Mg Tablet 20 Mg PO HS NEXT DOSE DUE TONIGHT AT BEDTIME Amlodipine Besylate 10 Mg Tablet 10 Mg PO DAILY NEXT DOSE DUE IN AM Potassium Chloride 10 Meq Tab.er.prt 20 Meq PO DAILY NEXT DOSE DUE IN AM Vitals/I & O Vital Sign - Last 24 Hours 8/9/11/27/19 11/27/19 11/27/19 11:00 11:26 15:00 15:26 Temp 98.3 97.9 98.3 97.9 Pulse 78 70 Resp 18 18 B/P (MAP) 146/98 (114) 119/80 (93) Pulse Ox 93 99 93 94 O2 Delivery Nasal Cannula Nasal Cannula O2 Flow Rate 5.0 5.0 11/27/19 11/27/19 11/27/19 11/27/19 19:00 19:20 19:20 20:06 Temp 98.5 98.5 Pulse 76 Resp 18 B/P (MAP) 130/77 (94) Pulse Ox 90 97 O2 Delivery Nasal Cannula Nasal Cannula O2 Flow Rate 5.0 5.0 5.0 11/27/19 11/28/19 11/28/19 11/28/19 23:00 01:14 01:15 03:00 Temp 98.0 98.0 98.0 98.0 Pulse 71 71 Resp 18 18 B/P (MAP) 124/80 (95) 124/80 (95) Pulse Ox 92 92 O2 Delivery Nasal Cannula BiPAP/CPAP O2 Flow Rate 5.0 11/28/19 11/28/19 11/28/19 11/28/19 07:00 07:48 08:33 08:33 Temp 98.1 98.1 Pulse 70 70 70 Resp 18 B/P (MAP) 145/95 (112) 145/95 145/95 Pulse Ox 100 96 O2 Delivery Nasal Cannula O2 Flow Rate 6.0 11/28/19 08:33 Pulse 70 B/P (MAP) 145/95 Intake and Output 11/27/19 11/27/19 11/28/19 15:00 23:00 07:00 Intake Total 50 ml 240 ml 1090 ml Output Total 900 ml 600 ml 500 ml Balance -850 ml -360 ml 590 ml Justicifation of Admission Dx: Justifications for Admission: Justification of Admission Dx: N/A Respiratory Failure: Severe Resp Distress RANJITH RICHARDSON MD Nov 28, 2019 10:05
--- NOTE | 2019-11-28 10:46 | PDOC ---
Infectious Disease Note Subjective: Subjective Comfortable, denies pain Denies increase SOA/F/C/S /N/V/D on 6L O2 Vital Signs: Vital Signs Vital Signs Date Time Temp Pulse Resp B/P (MAP) Pulse Ox O2 Delivery O2 Flow Rate FiO2 11/28/19 08:33 70 145/95 11/28/19 08:00 Nasal Cannula 6.0 11/28/19 07:48 96 11/28/19 07:00 98.1 18 98.1 Physical Exam: PHYSICAL EXAM GENERAL: Propped up in bed, alert, relaxed HEENT: Oral cavity clear NECK: Supple, no JVP, no lymphadenopathy. LUNGS: Mild congestion on the right, nonlabored HEART: S1, S2 regular. ABDOMEN: Soft, nontender EXTREMITIES: No edema, cyanosis. SKIN: No rash NEUROLOGIC: Alert, awake and appropriate. No focal neurologic deficit. . Medications: Inpatient Meds: Current Medications Medications (Trade) Dose Ordered Sig/Dex Start Time Stop Time Status Last Admin Dose Admin Albuterol Sulfate (Ventolin Neb Soln) 2.5 mg PRN Q2HR PRN 11/24/19 13:45 Albuterol/ Ipratropium (Duoneb) 3 ml Q4HRS 11/24/19 16:00 11/28/19 07:48 Amlodipine Besylate (Norvasc) 10 mg DAILY 11/24/19 09:00 11/28/19 08:33 Apixaban (Eliquis) 5 mg BID 11/24/19 09:00 11/28/19 08:32 Azithromycin 250 ml @ 250 mls/hr 1X ONCE 11/23/19 19:15 11/23/19 20:14 DC 11/23/19 19:24 Ceftriaxone Sodium (Rocephin) 2 gm Q24H 11/24/19 17:00 11/27/19 16:59 Dextrose (Dextrose 50%-Water Syringe) 12.5 gm PRN Q15MIN PRN 11/24/19 13:45 Doxycycline Hyclate (Vibra-Tab) 100 mg BID 11/27/19 21:00 11/28/19 08:32 Doxycycline Hyclate 100 mg/ Dextrose 100 ml @ 50 mls/hr Q12HR 11/24/19 09:00 11/27/19 11:28 DC 11/27/19 08:19 Furosemide (Lasix) 40 mg 1X ONCE 11/25/19 11:00 11/25/19 11:01 DC 11/25/19 11:20 Info (Anti-Coagulation Monitoring By Pharmacy) 1 each PRN DAILY PRN 11/24/19 10:00 11/24/19 10:11 Insulin Human Lispro (HumaLOG) 0-9 UNITS TIDWMEALHC 11/24/19 17:00 Lactobacillus Rhamnosus (Culturelle) 1 cap BID 11/24/19 21:00 11/28/19 08:32 Levofloxacin/ Dextrose 150 ml @ 100 mls/hr 1X ONCE 11/23/19 18:00 11/23/19 19:07 DC 11/23/19 18:49 Lisinopril (Prinivil) 20 mg DAILY 11/24/19 09:00 11/28/19 08:33 Metoprolol Succinate (Toprol Xl) 25 mg DAILY 11/24/19 09:00 11/28/19 08:33 Potassium Chloride (Klor-Con) 40 meq 1X ONCE 11/24/19 13:00 11/24/19 13:01 DC 11/24/19 13:30 Prednisone (Prednisone) 60 mg 1X ONCE 11/23/19 17:00 11/23/19 17:01 DC 11/23/19 17:09 Simvastatin (Zocor) 20 mg HS 11/24/19 21:00 11/27/19 21:20 Sodium Chloride 1,000 ml @ 1,000 mls/hr 1X ONCE 11/23/19 17:00 11/23/19 17:59 DC 11/23/19 17:09 Labs: Lab Laboratory Tests Test 11/27/19 11:32 11/27/19 16:40 11/27/19 21:48 11/28/19 05:15 Glucose (Fingerstick) 105 mg/dL (70-99) 109 mg/dL (70-99) 96 mg/dL (70-99) White Blood Count 5.6 x10^3/uL (4.0-11.0) Red Blood Count 4.19 x10^6/uL (4.30-5.70) Hemoglobin 12.7 g/dL (13.0-17.5) Hematocrit 38.2 % (39.0-53.0) Mean Corpuscular Volume 91 fL (79-100) Mean Corpuscular Hemoglobin 30 pg (25-35) Mean Corpuscular Hemoglobin Concent 33 g/dL (31-37) Red Cell Distribution Width 16.1 % (11.5-14.5) Platelet Count 132 x10^3/uL (140-400) Neutrophils (%) (Auto) 69 % (31-73) Lymphocytes (%) (Auto) 15 % (24-48) Monocytes (%) (Auto) 12 % (0-9) Eosinophils (%) (Auto) 3 % (0-3) Basophils (%) (Auto) 1 % (0-3) Neutrophils # (Auto) 3.8 x10^3/uL (1.8-7.7) Lymphocytes # (Auto) 0.8 x10^3/uL (1.0-4.8) Monocytes # (Auto) 0.7 x10^3/uL (0.0-1.1) Eosinophils # (Auto) 0.2 x10^3/uL (0.0-0.7) Basophils # (Auto) 0.1 x10^3/uL (0.0-0.2) Sodium Level 143 mmol/L (136-145) Potassium Level 3.9 mmol/L (3.5-5.1) Chloride Level 105 mmol/L (98-107) Carbon Dioxide Level 37 mmol/L (21-32) Anion Gap 1 (6-14) Blood Urea Nitrogen 15 mg/dL (8-26) Creatinine 1.1 mg/dL (0.7-1.3) Estimated GFR (Cockcroft-Gault) 81.8 Glucose Level 93 mg/dL (70-99) Calcium Level 9.5 mg/dL (8.5-10.1) Test 11/28/19 07:54 Glucose (Fingerstick) 120 mg/dL (70-99) Objective: Assessment: Respiratory failure. Pulmonary infiltrate/pneumonia. Congestive heart failure. COVID-19 negative Drug use. ASHLEY improved Plan: Plan of Care Change doxycycline to po Bishnu for now Advised against drug use Supportive care FRED RAMOS MD Nov 28, 2019 10:46
[2019-11-28] MEDS: ANTI-COAG MONITOR BY PHARMACY. MC PRN (10:47)
[2019-11-28 11:00] VITALS: BP 131/85
--- NOTE | 2019-11-28 11:10 | NUR ---
SW following. Discussed with RN, pt from home, cardiac diet, 6L o2 - has oxygen and bipap at home. ID note stating change IV abx to oral, Rocephin for now. RN advised no SW needs, anticipate discharge in the next day or two.
--- NOTE | 2019-11-28 12:15 | PDOC ---
PULMONARY PROGRESS NOTES DATE: 11/28/19 TIME: 12:14 Subjective feeling better, sob better, has occ cough, no sputum, is on home 02 6 lpm Vitals Vital Signs Date Time Temp Pulse Resp B/P (MAP) Pulse Ox O2 Delivery O2 Flow Rate FiO2 11/28/19 11:16 Nasal Cannula 6.0 11/28/19 11:00 98.1 70 18 131/85 (100) 97 98.1 ROS: No Nausea, No Chest Pain General: Alert, Oriented X4, No acute distress HEENT: Other ([facility] at [facility] ) Lungs: Other (deminished bs) Cardiovascular: S1, S2 Abdomen: Soft, Non-tender, Other Neuro Exam: Alert Extremities: Other (trace edema) Skin: Warm Labs Laboratory Tests Test 11/26/19 16:37 11/26/19 20:50 11/27/19 07:41 11/27/19 11:32 Glucose (Fingerstick) 101 mg/dL (70-99) 104 mg/dL (70-99) 97 mg/dL (70-99) 105 mg/dL (70-99) Test 11/27/19 16:40 11/27/19 21:48 11/28/19 05:15 11/28/19 07:54 Glucose (Fingerstick) 109 mg/dL (70-99) 96 mg/dL (70-99) 120 mg/dL (70-99) White Blood Count 5.6 x10^3/uL (4.0-11.0) Red Blood Count 4.19 x10^6/uL (4.30-5.70) Hemoglobin 12.7 g/dL (13.0-17.5) Hematocrit 38.2 % (39.0-53.0) Mean Corpuscular Volume 91 fL (79-100) Mean Corpuscular Hemoglobin 30 pg (25-35) Mean Corpuscular Hemoglobin Concent 33 g/dL (31-37) Red Cell Distribution Width 16.1 % (11.5-14.5) Platelet Count 132 x10^3/uL (140-400) Neutrophils (%) (Auto) 69 % (31-73) Lymphocytes (%) (Auto) 15 % (24-48) Monocytes (%) (Auto) 12 % (0-9) Eosinophils (%) (Auto) 3 % (0-3) Basophils (%) (Auto) 1 % (0-3) Neutrophils # (Auto) 3.8 x10^3/uL (1.8-7.7) Lymphocytes # (Auto) 0.8 x10^3/uL (1.0-4.8) Monocytes # (Auto) 0.7 x10^3/uL (0.0-1.1) Eosinophils # (Auto) 0.2 x10^3/uL (0.0-0.7) Basophils # (Auto) 0.1 x10^3/uL (0.0-0.2) Sodium Level 143 mmol/L (136-145) Potassium Level 3.9 mmol/L (3.5-5.1) Chloride Level 105 mmol/L (98-107) Carbon Dioxide Level 37 mmol/L (21-32) Anion Gap 1 (6-14) Blood Urea Nitrogen 15 mg/dL (8-26) Creatinine 1.1 mg/dL (0.7-1.3) Estimated GFR (Cockcroft-Gault) 81.8 Glucose Level 93 mg/dL (70-99) Calcium Level 9.5 mg/dL (8.5-10.1) Test 11/28/19 11:20 Glucose (Fingerstick) 111 mg/dL (70-99) Laboratory Tests Test 11/27/19 16:40 11/27/19 21:48 11/28/19 05:15 11/28/19 07:54 Glucose (Fingerstick) 109 mg/dL (70-99) 96 mg/dL (70-99) 120 mg/dL (70-99) White Blood Count 5.6 x10^3/uL (4.0-11.0) Red Blood Count 4.19 x10^6/uL (4.30-5.70) Hemoglobin 12.7 g/dL (13.0-17.5) Hematocrit 38.2 % (39.0-53.0) Mean Corpuscular Volume 91 fL (79-100) Mean Corpuscular Hemoglobin 30 pg (25-35) Mean Corpuscular Hemoglobin Concent 33 g/dL (31-37) Red Cell Distribution Width 16.1 % (11.5-14.5) Platelet Count 132 x10^3/uL (140-400) Neutrophils (%) (Auto) 69 % (31-73) Lymphocytes (%) (Auto) 15 % (24-48) Monocytes (%) (Auto) 12 % (0-9) Eosinophils (%) (Auto) 3 % (0-3) Basophils (%) (Auto) 1 % (0-3) Neutrophils # (Auto) 3.8 x10^3/uL (1.8-7.7) Lymphocytes # (Auto) 0.8 x10^3/uL (1.0-4.8) Monocytes # (Auto) 0.7 x10^3/uL (0.0-1.1) Eosinophils # (Auto) 0.2 x10^3/uL (0.0-0.7) Basophils # (Auto) 0.1 x10^3/uL (0.0-0.2) Sodium Level 143 mmol/L (136-145) Potassium Level 3.9 mmol/L (3.5-5.1) Chloride Level 105 mmol/L (98-107) Carbon Dioxide Level 37 mmol/L (21-32) Anion Gap 1 (6-14) Blood Urea Nitrogen 15 mg/dL (8-26) Creatinine 1.1 mg/dL (0.7-1.3) Estimated GFR (Cockcroft-Gault) 81.8 Glucose Level 93 mg/dL (70-99) Calcium Level 9.5 mg/dL (8.5-10.1) Test 11/28/19 11:20 Glucose (Fingerstick) 111 mg/dL (70-99) Medications Active Scripts Medications Dose Route/Sig Max Daily Dose Days Date Category Dose Instructions Levaquin (Levofloxacin) 750 Mg Tablet 1 Tab PO DAILY 10 09/15/19 Rx Culturelle (Lactobacillus Rhamnosus Gg) 1 Each Cap.sprink 1 Cap PO BID 10 09/15/19 Rx Eliquis (Apixaban) 5 Mg Tablet 5 Mg PO BID 08/02/19 Reported Toprol Xl (Metoprolol Succinate) 25 Mg Tab.er.24h 1 Tab PO DAILY 30 08/02/19 Reported Lasix (Furosemide) 20 Mg Tablet 1 Tab PO DAILY 30 05/10/19 Rx Lisinopril 40 Mg Tablet 20 Mg PO DAILY 30 05/10/19 Rx Proair Hfa (Albuterol Sulfate) 8.5 Gm Hfa.aer.ad 2.5 Mg NEB PRN Q2HR PRN 30 05/10/19 Rx Duoneb 0.5-3(2.5) Mg/3 Ml (Albuterol/Ipratropium) 3 Ml Ampul.neb 3 Ml NEB Q4HRS 30 05/09/19 Rx Albuterol Sulfate Neb Soln (Albuterol Sulfate) 0.63 Mg/3 Ml Vial.neb 0.63 Mg NEB PRN Q4HRS PRN 30 10/13/16 Rx NEEDED Zocor (Simvastatin) 20 Mg Tablet 20 Mg PO HS 10/27/14 Reported NEXT DOSE DUE TONIGHT AT BEDTIME Amlodipine Besylate 10 Mg Tablet 10 Mg PO DAILY 06/13/13 Reported NEXT DOSE DUE IN AM Potassium Chloride 10 Meq Tab.er.prt 20 Meq PO DAILY 06/13/13 Reported NEXT DOSE DUE IN AM Impression . 1. Acute on chronic hypoxic and hypercapnic respiratory failure secondary to acute on chronic systolic and diastolic heart failure in addition acute exacerbation of chronic obstructive pulmonary disease. 2. The patient with nonischemic cardiomyopathy. 3. The patient with ongoing tobacco use and likely severe chronic obstructive pulmonary disease. 4. Prior history of pneumonias. 5. History of marijuana and cocaine abuse. Continues to do cocaine. 6. Prior history of Enterobacter bacteremia. Plan . 1. I have discussed with the patient regarding smoking cessation as well as cocaine cessation. 2. prn BiPAP. Avoid hyperoxia. 3. Diuresis per cardiology 4. BiPAP p.r.n. during the day 5. Follow cardiology recommendations. 6. chest x-ray 11/24 mild improvement left base/ CHF 7. DVT prophylaxis, the patient is currently on Eliquis. 8. Empiric antibiotic were initiated. per id 9. Discussed with pt, ok with SHARON Perdomo MD Nov 28, 2019 12:15
--- NOTE | 2019-11-28 14:30 | RAD ---
CT CHEST WO CONTRAST INDICATION: pneumonia COMPARISON STUDY: Radiograph 11/25/2019. CT 09/02/2019. TECHNIQUE: Unenhanced axial images were obtained through the lungs and upper abdomen. Coronal and sagittal multiplanar reconstructions were also obtained. PQRS compliance statement: One or more of the following individualized dose reduction techniques were utilized for this examination: 1. Automated exposure control 2. Adjustment of the mA and/or kV according to patient size 3. Use of iterative reconstruction technique FINDINGS: Lungs and Airways: Bibasilar dependent opacities. Previously described right upper lobe consolidation has resolved. Paraseptal and centrilobular emphysema. Bronchial wall thickening. Pleura: Trace bilateral pleural effusions. Small amount of loculated fluid in the major fissure measuring 2 cm previously measured 4.6 cm. Heart and Mediastinum: The visualized thyroid gland is normal in size and attenuation. No axillary or supraclavicular lymphadenopathy. Few conspicuous mediastinal lymph nodes are unchanged. Cardiomegaly. Coronary artery atherosclerotic disease. Dilated pulmonary trunk measures 44 mm, which can be seen with pulmonary hypertension. Atherosclerosis of the thoracic aorta. Abdomen: The visualized abdominal organs demonstrate no abnormality. Bones and Soft Tissues: Degenerative changes of the spine. IMPRESSION: 1. Bibasilar dependent opacities likely represent subsegmental atelectasis, although superimposed infection would be difficult to exclude. These appear improved from recent radiograph of 11/25/2019, allowing for differences in modality. The right upper lobe consolidation seen on exam of 09/02/2019 has resolved. 2. Trace bilateral pleural effusions. Electronically signed by: Abdullahi Coppola MD (11/28/2019 2:27 PM) [id number]
[2019-11-28 15:00] VITALS: BP 132/79
--- NOTE | 2019-11-28 15:02 | RAD ---
Two-view chest HISTORY: Pneumonia Comparison November 22 FINDINGS: Biventricular pacemaker device appears radiologically unchanged. Heart is mildly enlarged. Pulmonary vasculature appear stable. No new infiltrate. Previously noted infiltrates appear mildly improved with increased aeration. No significant effusion or pneumothorax. IMPRESSION: Improving aeration the lungs with decreased infiltrates. No new infiltrates are present. Electronically signed by: Misael Eric MD (11/28/2019 2:58 PM) [id number]
--- NOTE | 2019-11-28 16:38 | PDOC ---
PROGRESS NOTES Date of Service DATE: 11/28/19 TIME: 16:36 Subjective Subjective Patient seen and examined Objective Objective Vital Signs Date Time Temp Pulse Resp B/P (MAP) Pulse Ox O2 Delivery O2 Flow Rate FiO2 11/28/19 15:48 Nasal Cannula 6.0 11/28/19 15:00 97.9 66 18 132/79 (96) 94 97.9 Intake and Output 11/28/19 07:00 Intake Total 1380 ml Output Total 2000 ml Balance -620 ml Intake Oral 1380 ml Output Urine Total 2000 ml Physical Exam Abdomen: Normal bowel sounds Heart: Regular rate General: No acute distress Lungs: Other (Mildly decreased breath sounds) Assessment Assessment Problems Medical Problems: (1) Acute respiratory failure with hypoxia Status: Acute (2) Community acquired pneumonia Status: Acute (3) COPD exacerbation Status: Acute 1. Acute on chronic respiratory failure, multifactorial secondary to AECOPD, pneumonia CHF, negative for covid. Patient continues to improve. Followed by pulmonary and ID. 2. Acute on chronic systolic/diastolic CHF, better compensated with diuresis. Continue current medical regimen. 3. SSS/ NICM s/p BiV PPM/MUD MIXER OPERATOR-P (Biotronik); prior LVEF 40% recent device check revealed 25% AFIB burden, normal function, BiV pacing 100%. 5. PAFIB; presently V pacing. Continue Eliquis for stroke prophylaxis. 6. HTN: controlled 7. CKD3 8. Chronic Substance abuse; cocaine and marijuana use. Comment Review of Relevant I have reviewed the following items rishi (where applicable) has been applied. Labs Laboratory Tests Test 11/26/19 16:37 11/26/19 20:50 11/27/19 07:41 11/27/19 11:32 Glucose (Fingerstick) 101 mg/dL (70-99) 104 mg/dL (70-99) 97 mg/dL (70-99) 105 mg/dL (70-99) Test 11/27/19 16:40 11/27/19 21:48 11/28/19 05:15 11/28/19 07:54 Glucose (Fingerstick) 109 mg/dL (70-99) 96 mg/dL (70-99) 120 mg/dL (70-99) White Blood Count 5.6 x10^3/uL (4.0-11.0) Red Blood Count 4.19 x10^6/uL (4.30-5.70) Hemoglobin 12.7 g/dL (13.0-17.5) Hematocrit 38.2 % (39.0-53.0) Mean Corpuscular Volume 91 fL (79-100) Mean Corpuscular Hemoglobin 30 pg (25-35) Mean Corpuscular Hemoglobin Concent 33 g/dL (31-37) Red Cell Distribution Width 16.1 % (11.5-14.5) Platelet Count 132 x10^3/uL (140-400) Neutrophils (%) (Auto) 69 % (31-73) Lymphocytes (%) (Auto) 15 % (24-48) Monocytes (%) (Auto) 12 % (0-9) Eosinophils (%) (Auto) 3 % (0-3) Basophils (%) (Auto) 1 % (0-3) Neutrophils # (Auto) 3.8 x10^3/uL (1.8-7.7) Lymphocytes # (Auto) 0.8 x10^3/uL (1.0-4.8) Monocytes # (Auto) 0.7 x10^3/uL (0.0-1.1) Eosinophils # (Auto) 0.2 x10^3/uL (0.0-0.7) Basophils # (Auto) 0.1 x10^3/uL (0.0-0.2) Sodium Level 143 mmol/L (136-145) Potassium Level 3.9 mmol/L (3.5-5.1) Chloride Level 105 mmol/L (98-107) Carbon Dioxide Level 37 mmol/L (21-32) Anion Gap 1 (6-14) Blood Urea Nitrogen 15 mg/dL (8-26) Creatinine 1.1 mg/dL (0.7-1.3) Estimated GFR (Cockcroft-Gault) 81.8 Glucose Level 93 mg/dL (70-99) Calcium Level 9.5 mg/dL (8.5-10.1) Test 11/28/19 11:20 11/28/19 16:34 Glucose (Fingerstick) 111 mg/dL (70-99) 106 mg/dL (70-99) Laboratory Tests Test 11/27/19 16:40 11/27/19 21:48 11/28/19 05:15 11/28/19 07:54 Glucose (Fingerstick) 109 mg/dL (70-99) 96 mg/dL (70-99) 120 mg/dL (70-99) White Blood Count 5.6 x10^3/uL (4.0-11.0) Red Blood Count 4.19 x10^6/uL (4.30-5.70) Hemoglobin 12.7 g/dL (13.0-17.5) Hematocrit 38.2 % (39.0-53.0) Mean Corpuscular Volume 91 fL (79-100) Mean Corpuscular Hemoglobin 30 pg (25-35) Mean Corpuscular Hemoglobin Concent 33 g/dL (31-37) Red Cell Distribution Width 16.1 % (11.5-14.5) Platelet Count 132 x10^3/uL (140-400) Neutrophils (%) (Auto) 69 % (31-73) Lymphocytes (%) (Auto) 15 % (24-48) Monocytes (%) (Auto) 12 % (0-9) Eosinophils (%) (Auto) 3 % (0-3) Basophils (%) (Auto) 1 % (0-3) Neutrophils # (Auto) 3.8 x10^3/uL (1.8-7.7) Lymphocytes # (Auto) 0.8 x10^3/uL (1.0-4.8) Monocytes # (Auto) 0.7 x10^3/uL (0.0-1.1) Eosinophils # (Auto) 0.2 x10^3/uL (0.0-0.7) Basophils # (Auto) 0.1 x10^3/uL (0.0-0.2) Sodium Level 143 mmol/L (136-145) Potassium Level 3.9 mmol/L (3.5-5.1) Chloride Level 105 mmol/L (98-107) Carbon Dioxide Level 37 mmol/L (21-32) Anion Gap 1 (6-14) Blood Urea Nitrogen 15 mg/dL (8-26) Creatinine 1.1 mg/dL (0.7-1.3) Estimated GFR (Cockcroft-Gault) 81.8 Glucose Level 93 mg/dL (70-99) Calcium Level 9.5 mg/dL (8.5-10.1) Test 11/28/19 11:20 11/28/19 16:34 Glucose (Fingerstick) 111 mg/dL (70-99) 106 mg/dL (70-99) Medications Current Medications Prednisone (Prednisone) 60 mg 1X ONCE PO Last administered on 11/23/19 17:09; Start 11/23/19 at 17:00; Stop 11/23/19 at 17:01; Status DC Albuterol/ Ipratropium (Duoneb) 9 ml 1X ONCE NEB Last administered on 11/23/19at 17:28; Start 11/23/19 at 17:00; Stop 11/23/19 at 17:01; Status DC Sodium Chloride 1,000 ml @ 1,000 mls/hr 1X ONCE IV Last administered on 11/23/19at 17:09; Start 11/23/19 at 17:00; Stop 11/23/19 at 17:59; Status DC Levofloxacin/ Dextrose 150 ml @ 100 mls/hr 1X ONCE IV Last administered on 11/23/19at 18:49; Start 11/23/19 at 18:00; Stop 11/23/19 at 19:07; Status DC Ceftriaxone Sodium (Rocephin) 2 gm 1X ONCE IVP Last administered on 11/23/19 19:24; Start 11/23/19 at 19:15; Stop 11/23/19 at 19:16; Status DC Azithromycin 250 ml @ 250 mls/hr 1X ONCE IV Last administered on 11/23/19at 19:24; Start 11/23/19 at 19:15; Stop 11/23/19 at 20:14; Status DC Amlodipine Besylate (Norvasc) 10 mg DAILY PO Last administered on 11/28/19at 08:33; Start 11/24/19 at 09:00 Apixaban (Eliquis) 5 mg BID PO Last administered on 11/28/19 08:32; Start 11/24/19 at 09:00 Furosemide (Lasix) 20 mg DAILY PO Last administered on 11/28/19at 08:32; Start 11/24/19 at 09:00 Lisinopril (Prinivil) 20 mg DAILY PO Last administered on 11/28/19 08:33; Start 11/24/19 at 09:00 Metoprolol Succinate (Toprol Xl) 25 mg DAILY PO Last administered on 11/28/19 08:33; Start 11/24/19 at 09:00 Potassium Chloride (Klor-Con) 20 meq [id number] PO Last administered on 11/28/19at 08:34; Start 11/24/19 at 08:00 Simvastatin (Zocor) 20 mg HS PO Last administered on 11/27/19at 21:20; Start 11/24/19 at 21:00 Furosemide (Lasix) 40 mg 1X ONCE IVP Last administered on 11/24/19at 08:54; Start 11/24/19 at 09:00; Stop 11/24/19 at 09:01; Status DC Ceftriaxone Sodium (Rocephin) 2 gm Q24H IVP Last administered on 11/27/19at 16:59; Start 11/24/19 at 17:00 Doxycycline Hyclate 100 mg/ Dextrose 100 ml @ 50 mls/hr Q12HR IV Last ad ministered on 11/27/19at 08:19; Start 11/24/19 at 09:00; Stop 11/27/19 at 11:28; Status DC Furosemide (Lasix) 40 mg 1X ONCE IVP Last administered on 11/24/19at 13:30; Start 11/24/19 at 10:30; Stop 11/24/19 at 10:31; Status DC Info (Anti-Coagulation Monitoring By Pharmacy) 1 each PRN DAILY PRN MC SEE COMMENTS Last administered on 11/28/19at 10:47; Start 11/24/19 at 10:00 Lactobacillus Rhamnosus (Culturelle) 1 cap BID PO Last administered on 11/28/19at 08:32; Start 11/24/19 at 21:00 Potassium Chloride (Klor-Con) 40 meq 1X ONCE PO Last administered on 11/24/19at 13:30; Start 11/24/19 at 13:00; Stop 11/24/19 at 13:01; Status DC Insulin Human Lispro (HumaLOG) 0-9 UNITS TIDWMEALHC SQ ; Start 11/24/19 at 17:00 Dextrose (Dextrose 50%-Water Syringe) 12.5 gm PRN Q15MIN PRN IV SEE COMMENTS; Start 11/24/19 at 13:45 Albuterol Sulfate (Ventolin Neb Soln) 2.5 mg PRN Q2HR PRN NEB SHORTNESS OF BREATH; Start 11/24/19 at 13:45 Albuterol/ Ipratropium (Duoneb) 3 ml Q4HRS NEB Last administered on 11/28/19at 15:48; Start 11/24/19 at 16:00 Furosemide (Lasix) 40 mg 1X ONCE IVP Last administered on 11/25/19at 11:20; Start 11/25/19 at 11:00; Stop 11/25/19 at 11:01; Status DC Doxycycline Hyclate (Vibra-Tab) 100 mg BID PO Last administered on 11/28/19at 08:32; Start 11/27/19 at 21:00 Active Scripts Active Levaquin (Levofloxacin) 750 Mg Tablet 1 Tab PO DAILY 10 Days Culturelle (Lactobacillus Rhamnosus Gg) 1 Each Cap.sprink 1 Cap PO BID 10 Days Lasix (Furosemide) 20 Mg Tablet 1 Tab PO DAILY 30 Days Lisinopril 40 Mg Tablet 20 Mg PO DAILY 30 Days Proair Hfa (Albuterol Sulfate) 8.5 Gm Hfa.aer.ad 2.5 Mg NEB PRN Q2HR PRN 30 Days Duoneb 0.5-3(2.5) Mg/3 Ml (Albuterol/Ipratropium) 3 Ml Ampul.neb 3 Ml NEB Q4HRS 30 Days Albuterol Sulfate Neb Soln (Albuterol Sulfate) 0.63 Mg/3 Ml Vial.neb 0.63 Mg NEB PRN Q4HRS PRN 30 Days NEEDED Reported Eliquis (Apixaban) 5 Mg Tablet 5 Mg PO BID Toprol Xl (Metoprolol Succinate) 25 Mg Tab.er.24h 1 Tab PO DAILY 30 Days Zocor (Simvastatin) 20 Mg Tablet 20 Mg PO HS NEXT DOSE DUE TONIGHT AT BEDTIME Amlodipine Besylate 10 Mg Tablet 10 Mg PO DAILY NEXT DOSE DUE IN AM Potassium Chloride 10 Meq Tab.er.prt 20 Meq PO DAILY NEXT DOSE DUE IN AM Vitals/I & O Vital Sign - Last 24 Hours 11/27/19 11/27/19 11/27/19 11/27/19 19:00 19:20 19:20 20:06 Temp 98.5 98.5 Pulse 76 Resp 18 B/P (MAP) 130/77 (94) Pulse Ox 90 97 O2 Delivery Nasal Cannula Nasal Cannula O2 Flow Rate 5.0 5.0 5.0 11/27/19 11/28/19 11/28/19 11/28/19 23:00 01:14 01:15 03:00 Temp 98.0 98.0 98.0 98.0 Pulse 71 71 Resp 18 18 B/P (MAP) 124/80 (95) 124/80 (95) Pulse Ox 92 92 O2 Delivery Nasal Cannula BiPAP/CPAP O2 Flow Rate 5.0 11/28/19 11/28/19 11/28/19 11/28/19 07:00 07:48 08:00 08:33 Temp 98.1 98.1 Pulse 70 70 Resp 18 B/P (MAP) 145/95 (112) 145/95 Pulse Ox 100 96 O2 Delivery Nasal Cannula Nasal Cannula O2 Flow Rate 6.0 6.0 11/28/19 11/28/19 11/28/19 11/28/19 08:33 08:33 11:00 11:16 Temp 98.1 98.1 Pulse 70 70 70 Resp 18 B/P (MAP) 145/95 145/95 131/85 (100) Pulse Ox 97 O2 Delivery Nasal Cannula Nasal Cannula O2 Flow Rate 6.0 11/28/19 11/28/19 15:00 15:48 Temp 97.9 97.9 Pulse 66 Resp 18 B/P (MAP) 132/79 (96) Pulse Ox 94 O2 Delivery Nasal Cannula Nasal Cannula O2 Flow Rate 6.0 Intake and Output 11/27/19 11/27/19 11/28/19 15:00 23:00 07:00 Intake Total 50 ml 240 ml 1090 ml Output Total 900 ml 600 ml 500 ml Balance -850 ml -360 ml 590 ml Justicifation of Admission Dx: Justifications for Admission: Justification of Admission Dx: N/A Respiratory Failure: Severe Resp Distress CLAUDE LAUREANO MD Nov 28, 2019 16:38
[2019-11-28] MEDS: cefTRIAXone IV Push 2 GM VIAL. IVP SCH (18:07)
[2019-11-28 19:00] VITALS: BP 113/89
[2019-11-28] MEDS: SIMVASTATIN 20 MG TABLET PO SCH (21:19)
[2019-11-28 23:00] VITALS: BP 132/94
[2019-11-29] MEDS: IPRATRPIUM/ALBUTEROL 0.5/2.5MG 3 ML NEBU. NEB SCH ×5 (00:51→16:16)
[2019-11-29 03:00] VITALS: BP 138/90
[2019-11-29 07:00] VITALS: BP 132/94
[2019-11-29] MEDS: INSULIN LISPRO 300 UNITS/3 ML VIAL. SQ SCH ×3 (08:00→17:00)
--- NOTE | 2019-11-29 08:06 | PDOC ---
Infectious Disease Note Subjective: Subjective Comfortable, denies any complaints Denies worsening SOA/F/C/S /N/V/D on 6L O2 Vital Signs: Vital Signs Vital Signs Date Time Temp Pulse Resp B/P (MAP) Pulse Ox O2 Delivery O2 Flow Rate FiO2 11/29/19 07:33 94 Nasal Cannula 6.0 11/29/19 03:00 98.4 71 20 138/90 (106) 98.4 Physical Exam: PHYSICAL EXAM GENERAL: Propped up in bed, alert, relaxed HEENT: Oral cavity clear NECK: Supple, no JVP, no lymphadenopathy. LUNGS: Mild congestion on the right, nonlabored HEART: S1, S2 regular. ABDOMEN: Soft, nontender EXTREMITIES: No edema, cyanosis. SKIN: No rash NEUROLOGIC: Alert, awake and appropriate. No focal neurologic deficit. . Medications: Inpatient Meds: Current Medications Medications (Trade) Dose Ordered Sig/Dex Start Time Stop Time Status Last Admin Dose Admin Albuterol Sulfate (Ventolin Neb Soln) 2.5 mg PRN Q2HR PRN 11/24/19 13:45 Albuterol/ Ipratropium (Duoneb) 3 ml Q4HRS 11/24/19 16:00 11/29/19 07:31 3 ML Amlodipine Besylate (Norvasc) 10 mg DAILY 11/24/19 09:00 11/28/19 08:33 10 MG Apixaban (Eliquis) 5 mg BID 11/24/19 09:00 11/28/19 21:20 5 MG Azithromycin 250 ml @ 250 mls/hr 1X ONCE 11/23/19 19:15 11/23/19 20:14 DC 11/23/19 19:24 250 MLS/HR Ceftriaxone Sodium (Rocephin) 2 gm Q24H 11/24/19 17:00 11/28/19 18:07 2 GM Dextrose (Dextrose 50%-Water Syringe) 12.5 gm PRN Q15MIN PRN 11/24/19 13:45 Doxycycline Hyclate (Vibra-Tab) 100 mg BID 11/27/19 21:00 11/28/19 21:20 100 MG Doxycycline Hyclate 100 mg/ Dextrose 100 ml @ 50 mls/hr Q12HR 11/24/19 09:00 11/27/19 11:28 DC 11/27/19 08:19 50 MLS/HR Furosemide (Lasix) 40 mg 1X ONCE 11/25/19 11:00 11/25/19 11:01 DC 11/25/19 11:20 40 MG Info (Anti-Coagulation Monitoring By Pharmacy) 1 each PRN DAILY PRN 11/24/19 10:00 11/28/19 10:47 1 EACH Insulin Human Lispro (HumaLOG) 0-9 UNITS TIDWMEALHC 11/24/19 17:00 Lactobacillus Rhamnosus (Culturelle) 1 cap BID 11/24/19 21:00 11/28/19 21:19 1 CAP Levofloxacin/ Dextrose 150 ml @ 100 mls/hr 1X ONCE 11/23/19 18:00 11/23/19 19:07 DC 11/23/19 18:49 100 MLS/HR Lisinopril (Prinivil) 20 mg DAILY 11/24/19 09:00 11/28/19 08:33 20 MG Metoprolol Succinate (Toprol Xl) 25 mg DAILY 11/24/19 09:00 11/28/19 08:33 25 MG Potassium Chloride (Klor-Con) 40 meq 1X ONCE 11/24/19 13:00 11/24/19 13:01 DC 11/24/19 13:30 40 MEQ Prednisone (Prednisone) 60 mg 1X ONCE 11/23/19 17:00 11/23/19 17:01 DC 11/23/19 17:09 60 MG Simvastatin (Zocor) 20 mg HS 11/24/19 21:00 11/28/19 21:19 20 MG Sodium Chloride 1,000 ml @ 1,000 mls/hr 1X ONCE 11/23/19 17:00 11/23/19 17:59 DC 11/23/19 17:09 1,000 MLS/HR Labs: Lab Laboratory Tests Test 11/28/19 11:20 11/28/19 16:34 11/28/19 21:12 11/29/19 07:44 Glucose (Fingerstick) 111 mg/dL (70-99) 106 mg/dL (70-99) 109 mg/dL (70-99) 88 mg/dL (70-99) Objective: Assessment: Respiratory failure. Pulmonary infiltrate/pneumonia. Congestive heart failure. COVID-19 negative Drug use. ASHLEY improved Plan: Plan of Care DC Ceftriaxone cont doxycycline Supportive care FRED RAMOS MD Nov 29, 2019 08:06
[2019-11-29] MEDS: LISINOPRIL 20 MG TABLET PO SCH (09:03)
[2019-11-29] MEDS: METOPROLOL SUCC 24HR ER 25 MG TAB.ER.24H. PO SCH (09:03)
[2019-11-29] MEDS: APIXABAN 5 MG TABLET. PO SCH (09:04)
[2019-11-29] MEDS: FUROSEMIDE 20 MG TABLET PO SCH (09:04)
[2019-11-29] MEDS: DOXYCYCLINE HYCLATE 100 MG TABLET PO SCH (09:04)
[2019-11-29] MEDS: LACTOBACILLUS RHAMNOSUS GG 1 CAPSULE. PO SCH (09:04)
[2019-11-29] MEDS: POTASSIUM CHLORIDE 10 MEQ TABLET.ER. PO SCH (09:05)
[2019-11-29] MEDS: amLODIPine BESYLATE 10 MG TABLET PO SCH (09:05)
--- NOTE | 2019-11-29 10:04 | NUR ---
ROLANDO following. Discussed with RN, pt to continue doxycycline, has oxygen at home. Anticipate possible discharge home today. ROLANDO will continue to follow. Addendum: 11/29/19 at 1651 by DELL MARSHALL RN called to say that pt is on 6l 02 and that his tank from home is empty. Pt uses [employer]. Spoke with Patria at [facility] who confirmed pt does have home 02 concentrator and Patria stated it is okay to discharge pt with one of their 02 tanks for transport. Pt provided with tank.
--- NOTE | 2019-11-29 10:36 | PDOC ---
PROGRESS NOTES Date of Service: DATE: 11/29/19 TIME: 10:33 Chief Complaint Chief Complaint discharge dx Acute on chronic respiratory failure, multifactorial secondary to PNA, AECOPD, mild acute on chronic systolic CHF Gram-negative possibly gram-positive pneumonia Possible aspiration pneumonia Mild Acute on Chronic systolic/diastolic CHF Chronic mild troponin elevation: within his range, no acute changes per EKG. 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 PAFIB; presently V pacing. Continue Eliquis for stroke prophylaxis. SSS CHF - 40% ejection H/o A. fib HTN CKD3 Chronic Substance abuse; cocaine and marijuana use. Last use 3 days ago Tobaccoism PUI -SARS-COVID negative. 09/10 and again 11/24 negative pulmonary arterial hypertension po doxy ct chest 11/27 11/28 d/w dr tsang in [place], ok to d/c, poor prognosis due to cocaine dependency, noncompliance 39 min pt exam, chart review d/c planning , > 50% of time spent with exam, chart review, pt care coordination History of Present Illness History of Present Illness 11/28 Patient seen and examined Patient is resting comfortably in NAD Discussed with RN Charts reviewed ct chest The right upper lobe consolidation seen on exam of 09/02/2019 has resolved. Mr James is a 63 yo M w/ PMHx CHB s/p BiV pacemaker, HTN, CKD2, tobacco abuse, COPD on 4-5L home O2, CHF EF 40-45, active cocaine user, ETOH, and marijuana abuse who p/w shortness of breath that was fairly sudden onset 11/23/2019. after smoking multiple substances. He had some back pain. No anterior chest pain. He was trying to use his home nebulizer, states it wasn't helping. He does not know if he has had weight gain, does not have a scale at home. Has LE edema that is much worse as well as orthopnea and PND, not sleeping well. He has a mild cough, no hemoptysis, no weight loss. No headaches, no nausea, vomiting or diarrhea. He was afebrile, has had no recent travel or sick contacts. Seen with severe dyspnea and ABG 7.25/67/78. BNP 4839, Trop 0.04, WBC 6.6, Hb 12.9, Platelets 129, Cr 1.3, K 3.9 He continues to do cocaine and smoke and has known COPD Chest x-ray showing CHF and possible pneumonia, admitted to ICU on BIPAP for respiratory failure. Seen on BIPAP in ICU, appears comfortable on it. Afebrile. Still hypoxic. COVID 19 negative Vitals Vitals Vital Signs Date Time Temp Pulse Resp B/P (MAP) Pulse Ox O2 Delivery O2 Flow Rate FiO2 11/29/19 09:05 66 132/94 11/29/19 07:33 94 Nasal Cannula 6.0 11/29/19 07:00 98.1 18 98.1 Physical Exam Physical Exam GENERAL: Propped up in bed, alert, relaxed HEENT: Oral cavity clear NECK: Supple, no JVP, no lymphadenopathy. LUNGS: Mild congestion on the right, nonlabored HEART: S1, S2 regular. ABDOMEN: Soft, nontender EXTREMITIES: No edema, cyanosis. SKIN: No rash NEUROLOGIC: Alert, awake and appropriate. No focal neurologic deficit. . General: Alert, Oriented X3, Cooperative, No acute distress Heart: Regular rate Lungs: Clear, Other (deminished bs) Abdomen: Normal bowel sounds Extremities: No edema Skin: No breakdown Labs LABS CT CHEST WO CONTRAST INDICATION: pneumonia COMPARISON STUDY: Radiograph 11/25/2019. CT 09/02/2019. TECHNIQUE: Unenhanced axial images were obtained through the lungs and upper abdomen. Coronal and sagittal multiplanar reconstructions were also obtained. PQRS compliance statement: One or more of the following individualized dose reduction techniques were utilized for this examination: 1. Automated exposure control 2. Adjustment of the mA and/or kV according to patient size 3. Use of iterative reconstruction technique FINDINGS: Lungs and Airways: Bibasilar dependent opacities. Previously described right upper lobe consolidation has resolved. Paraseptal and centrilobular emphysema. Bronchial wall thickening. Pleura: Trace bilateral pleural effusions. Small amount of loculated fluid in the major fissure measuring 2 cm previously measured 4.6 cm. Heart and Mediastinum: The visualized thyroid gland is normal in size and attenuation. No axillary or supraclavicular lymphadenopathy. Few conspicuous mediastinal lymph nodes are unchanged. Cardiomegaly. Coronary artery atherosclerotic disease. Dilated pulmonary trunk measures 44 mm, which can be seen with pulmonary hypertension. Atherosclerosis of the thoracic aorta. Abdomen: The visualized abdominal organs demonstrate no abnormality. Bones and Soft Tissues: Degenerative changes of the spine. IMPRESSION: 1. Bibasilar dependent opacities likely represent subsegmental atelectasis, although superimposed infection would be difficult to exclude. These appear improved from recent radiograph of 11/25/2019, allowing for differences in modality. The right upper lobe consolidation seen on exam of 09/02/2019 has resolved. 2. Trace bilateral pleural effusions. Electronically signed by: Millicent Awad MD (11/28/2019 2:27 PM) [id number] DICTATED and SIGNED BY: MILLICENT AWAD MD DATE: 11/28/191426 Laboratory Tests Test 11/28/19 11:20 11/28/19 16:34 11/28/19 21:12 11/29/19 07:44 Glucose (Fingerstick) 111 mg/dL (70-99) 106 mg/dL (70-99) 109 mg/dL (70-99) 88 mg/dL (70-99) Assessment and Plan Assessmemt and Plan Problems Medical Problems: (1) Acute respiratory failure with hypoxia Status: Acute (2) Community acquired pneumonia Status: Acute (3) COPD exacerbation Status: Acute Comment Review of Relevant I have reviewed the following items rishi (where applicable) has been applied. Labs Laboratory Tests Test 11/27/19 11:32 11/27/19 16:40 11/27/19 21:48 11/28/19 05:15 Glucose (Fingerstick) 105 mg/dL (70-99) 109 mg/dL (70-99) 96 mg/dL (70-99) White Blood Count 5.6 x10^3/uL (4.0-11.0) Red Blood Count 4.19 x10^6/uL (4.30-5.70) Hemoglobin 12.7 g/dL (13.0-17.5) Hematocrit 38.2 % (39.0-53.0) Mean Corpuscular Volume 91 fL (79-100) Mean Corpuscular Hemoglobin 30 pg (25-35) Mean Corpuscular Hemoglobin Concent 33 g/dL (31-37) Red Cell Distribution Width 16.1 % (11.5-14.5) Platelet Count 132 x10^3/uL (140-400) Neutrophils (%) (Auto) 69 % (31-73) Lymphocytes (%) (Auto) 15 % (24-48) Monocytes (%) (Auto) 12 % (0-9) Eosinophils (%) (Auto) 3 % (0-3) Basophils (%) (Auto) 1 % (0-3) Neutrophils # (Auto) 3.8 x10^3/uL (1.8-7.7) Lymphocytes # (Auto) 0.8 x10^3/uL (1.0-4.8) Monocytes # (Auto) 0.7 x10^3/uL (0.0-1.1) Eosinophils # (Auto) 0.2 x10^3/uL (0.0-0.7) Basophils # (Auto) 0.1 x10^3/uL (0.0-0.2) Sodium Level 143 mmol/L (136-145) Potassium Level 3.9 mmol/L (3.5-5.1) Chloride Level 105 mmol/L (98-107) Carbon Dioxide Level 37 mmol/L (21-32) Anion Gap 1 (6-14) Blood Urea Nitrogen 15 mg/dL (8-26) Creatinine 1.1 mg/dL (0.7-1.3) Estimated GFR (Cockcroft-Gault) 81.8 Glucose Level 93 mg/dL (70-99) Calcium Level 9.5 mg/dL (8.5-10.1) Test 11/28/19 07:54 11/28/19 11:20 11/28/19 16:34 11/28/19 21:12 Glucose (Fingerstick) 120 mg/dL (70-99) 111 mg/dL (70-99) 106 mg/dL (70-99) 109 mg/dL (70-99) Test 11/29/19 07:44 Glucose (Fingerstick) 88 mg/dL (70-99) Laboratory Tests Test 11/28/19 11:20 11/28/19 16:34 11/28/19 21:12 11/29/19 07:44 Glucose (Fingerstick) 111 mg/dL (70-99) 106 mg/dL (70-99) 109 mg/dL (70-99) 88 mg/dL (70-99) Medications Current Medications Prednisone (Prednisone) 60 mg 1X ONCE PO Last administered on 11/23/19 17:09; Start 11/23/19 at 17:00; Stop 11/23/19 at 17:01; Status DC Albuterol/ Ipratropium (Duoneb) 9 ml 1X ONCE NEB Last administered on 11/23/19 17:28; Start 11/23/19 at 17:00; Stop 11/23/19 at 17:01; Status DC Sodium Chloride 1,000 ml @ 1,000 mls/hr 1X ONCE IV Last administered on 11/23/19at 17:09; Start 11/23/19 at 17:00; Stop 11/23/19 at 17:59; Status DC Levofloxacin/ Dextrose 150 ml @ 100 mls/hr 1X ONCE IV Last administered on 11/23/19at 18:49; Start 11/23/19 at 18:00; Stop 11/23/19 at 19:07; Status DC Ceftriaxone Sodium (Rocephin) 2 gm 1X ONCE IVP Last administered on 11/23/19at 19:24; Start 11/23/19 at 19:15; Stop 11/23/19 at 19:16; Status DC Azithromycin 250 ml @ 250 mls/hr 1X ONCE IV Last administered on 11/23/19at 19:24; Start 11/23/19 at 19:15; Stop 11/23/19 at 20:14; Status DC Amlodipine Besylate (Norvasc) 10 mg DAILY PO Last administered on 11/29/19 09 :05; Start 11/24/19 at 09:00 Apixaban (Eliquis) 5 mg BID PO Last administered on 11/29/19 09:04; Start 11/24/19 at 09:00 Furosemide (Lasix) 20 mg DAILY PO Last administered on 11/29/19 09:04; Start 11/24/19 at 09:00 Lisinopril (Prinivil) 20 mg DAILY PO Last administered on 11/29/19 09:03; Start 11/24/19 at 09:00 Metoprolol Succinate (Toprol Xl) 25 mg DAILY PO Last administered on 11/29/19at 09:03; Start 11/24/19 at 09:00 Potassium Chloride (Klor-Con) 20 meq DAILYWBKFT PO Last administered on 11/29/19at 09:05; Start 11/24/19 at 08:00 Simvastatin (Zocor) 20 mg HS PO Last administered on 11/28/19at 21:19; Start 11/24/19 at 21:00 Furosemide (Lasix) 40 mg 1X ONCE IVP Last administered on 11/24/19at 08:54; Start 11/24/19 at 09:00; Stop 11/24/19 at 09:01; Status DC Ceftriaxone Sodium (Rocephin) 2 gm Q24H IVP Last administered on 11/28/19at 18:07; Start 11/24/19 at 17:00; Stop 11/29/19 at 09:11; Status DC Doxycycline Hyclate 100 mg/ Dextrose 100 ml @ 50 mls/hr Q12HR IV Last administered on 11/27/19at 08:19; Start 11/24/19 at 09:00; Stop 11/27/19 at 11:28; Status DC Furosemide (Lasix) 40 mg 1X ONCE IVP Last administered on 11/24/19at 13:30; Start 11/24/19 at 10:30; Stop 11/24/19 at 10:31; Status DC Info (Anti-Coagulation Monitoring By Pharmacy) 1 each PRN DAILY PRN MC SEE COMMENTS Last administered on 11/28/19at 10:47; Start 11/24/19 at 10:00 Lactobacillus Rhamnosus (Culturelle) 1 cap BID PO Last administered on 11/29/19at 09:04; Start 11/24/19 at 21:00 Potassium Chloride (Klor-Con) 40 meq 1X ONCE PO Last administered on 11/24/19at 13:30; Start 11/24/19 at 13:00; Stop 11/24/19 at 13:01; Status DC Insulin Human Lispro (HumaLOG) 0-9 UNITS TIDWMEALHC SQ ; Start 11/24/19 at 17:00 Dextrose (Dextrose 50%-Water Syringe) 12.5 gm PRN Q15MIN PRN IV SEE COMMENTS; Start 11/24/19 at 13:45 Albuterol Sulfate (Ventolin Neb Soln) 2.5 mg PRN Q2HR PRN NEB SHORTNESS OF BREATH; Start 11/24/19 at 13:45 Albuterol/ Ipratropium (Duoneb) 3 ml Q4HRS NEB Last administered on 11/29/19at 07:31; Start 11/24/19 at 16:00 Furosemide (Lasix) 40 mg 1X ONCE IVP Last administered on 11/25/19at 11:20; Start 11/25/19 at 11:00; Stop 11/25/19 at 11:01; Status DC Doxycycline Hyclate (Vibra-Tab) 100 mg BID PO Last administered on 11/29/19at 09:04; Start 11/27/19 at 21:00 Active Scripts Active Levaquin (Levofloxacin) 750 Mg Tablet 1 Tab PO DAILY 10 Days Culturelle (Lactobacillus Rhamnosus Gg) 1 Each Cap.sprink 1 Cap PO BID 10 Days Lasix (Furosemide) 20 Mg Tablet 1 Tab PO DAILY 30 Days Lisinopril 40 Mg Tablet 20 Mg PO DAILY 30 Days Proair Hfa (Albuterol Sulfate) 8.5 Gm Hfa.aer.ad 2.5 Mg NEB PRN Q2HR PRN 30 Days Duoneb 0.5-3(2.5) Mg/3 Ml (Albuterol/Ipratropium) 3 Ml Ampul.neb 3 Ml NEB Q4HRS 30 Days Albuterol Sulfate Neb Soln (Albuterol Sulfate) 0.63 Mg/3 Ml Vial.neb 0.63 Mg NEB PRN Q4HRS PRN 30 Days NEEDED Reported Eliquis (Apixaban) 5 Mg Tablet 5 Mg PO BID Toprol Xl (Metoprolol Succinate) 25 Mg Tab.er.24h 1 Tab PO DAILY 30 Days Zocor (Simvastatin) 20 Mg Tablet 20 Mg PO HS NEXT DOSE DUE TONIGHT AT BEDTIME Amlodipine Besylate 10 Mg Tablet 10 Mg PO DAILY NEXT DOSE DUE IN AM Potassium Chloride 10 Meq Tab.er.prt 20 Meq PO DAILY NEXT DOSE DUE IN AM Vitals/I & O Vital Sign - Last 24 Hours 11/28/19 11/28/19 11/28/19 11/28/19 11:00 11:16 15:00 15:48 Temp 98.1 97.9 98.1 97.9 Pulse 70 66 Resp 18 18 B/P (MAP) 131/85 (100) 132/79 (96) Pulse Ox 97 94 O2 Delivery Nasal Cannula Nasal Cannula Nasal Cannula Nasal Cannula O2 Flow Rate 6.0 6.0 11/28/19 11/28/19 11/28/19 11/28/19 19:00 20:00 20:22 21:00 Temp 97.5 97.5 Pulse 70 Resp 20 B/P (MAP) 113/89 (97) Pulse Ox 92 97 O2 Delivery Room Air Nasal Cannula Nasal Cannula O2 Flow Rate 6.0 6.0 5.0 11/28/19 11/29/19 11/29/19 11/29/19 23:00 00:51 03:00 03:54 Temp 98.5 98.4 98.5 98.4 Pulse 59 71 Resp 20 20 B/P (MAP) 132/94 (107) 138/90 (106) Pulse Ox 92 97 91 O2 Delivery Room Air Nasal Cannula Room Air Nasal Cannula O2 Flow Rate 6.0 6.0 11/29/19 11/29/19 11/29/19 11/29/19 07:00 07:33 09:03 09:03 Temp 98.1 98.1 Pulse 66 66 66 Resp 18 B/P (MAP) 132/94 (107) 132/94 132/94 Pulse Ox 100 94 O2 Delivery Nasal Cannula Nasal Cannula O2 Flow Rate 6.0 6.0 11/29/19 09:05 Pulse 66 B/P (MAP) 132/94 Intake and Output 11/28/19 11/28/19 11/29/19 15:00 23:00 07:00 Intake Total 580 ml 540 ml 540 ml Output Total 400 ml 1000 ml 700 ml Balance 180 ml -460 ml -160 ml Justicifation of Admission Dx: Justifications for Admission: Justification of Admission Dx: N/A Respiratory Failure: Severe Resp Distress RANJITH RICHARDSON MD Nov 29, 2019 10:36
[2019-11-29 10:56] VITALS: BP 131/78
--- NOTE | 2019-11-29 11:11 | PDOC ---
PULMONARY PROGRESS NOTES DATE: 11/29/19 TIME: 11:11 Subjective feeling better, sob better, has occ cough, no sputum, is on home 02 6 lpm Vitals Vital Signs Date Time Temp Pulse Resp B/P (MAP) Pulse Ox O2 Delivery O2 Flow Rate FiO2 11/29/19 10:56 98.7 71 16 131/78 (95) 96 Nasal Cannula 6.0 98.7 ROS: No Nausea, No Chest Pain General: Alert, Oriented X4, No acute distress HEENT: Other (nc at perrl ) Lungs: Other (deminished bs) Cardiovascular: S1, S2 Abdomen: Soft, Non-tender, Other Neuro Exam: Alert Extremities: Other (trace edema) Skin: Warm Labs Laboratory Tests Test 11/27/19 11:32 11/27/19 16:40 11/27/19 21:48 11/28/19 05:15 Glucose (Fingerstick) 105 mg/dL (70-99) 109 mg/dL (70-99) 96 mg/dL (70-99) White Blood Count 5.6 x10^3/uL (4.0-11.0) Red Blood Count 4.19 x10^6/uL (4.30-5.70) Hemoglobin 12.7 g/dL (13.0-17.5) Hematocrit 38.2 % (39.0-53.0) Mean Corpuscular Volume 91 fL (79-100) Mean Corpuscular Hemoglobin 30 pg (25-35) Mean Corpuscular Hemoglobin Concent 33 g/dL (31-37) Red Cell Distribution Width 16.1 % (11.5-14.5) Platelet Count 132 x10^3/uL (140-400) Neutrophils (%) (Auto) 69 % (31-73) Lymphocytes (%) (Auto) 15 % (24-48) Monocytes (%) (Auto) 12 % (0-9) Eosinophils (%) (Auto) 3 % (0-3) Basophils (%) (Auto) 1 % (0-3) Neutrophils # (Auto) 3.8 x10^3/uL (1.8-7.7) Lymphocytes # (Auto) 0.8 x10^3/uL (1.0-4.8) Monocytes # (Auto) 0.7 x10^3/uL (0.0-1.1) Eosinophils # (Auto) 0.2 x10^3/uL (0.0-0.7) Basophils # (Auto) 0.1 x10^3/uL (0.0-0.2) Sodium Level 143 mmol/L (136-145) Potassium Level 3.9 mmol/L (3.5-5.1) Chloride Level 105 mmol/L (98-107) Carbon Dioxide Level 37 mmol/L (21-32) Anion Gap 1 (6-14) Blood Urea Nitrogen 15 mg/dL (8-26) Creatinine 1.1 mg/dL (0.7-1.3) Estimated GFR (Cockcroft-Gault) 81.8 Glucose Level 93 mg/dL (70-99) Calcium Level 9.5 mg/dL (8.5-10.1) Test 11/28/19 07:54 11/28/19 11:20 11/28/19 16:34 11/28/19 21:12 Glucose (Fingerstick) 120 mg/dL (70-99) 111 mg/dL (70-99) 106 mg/dL (70-99) 109 mg/dL (70-99) Test 11/29/19 07:44 Glucose (Fingerstick) 88 mg/dL (70-99) Laboratory Tests Test 11/28/19 11:20 11/28/19 16:34 11/28/19 21:12 11/29/19 07:44 Glucose (Fingerstick) 111 mg/dL (70-99) 106 mg/dL (70-99) 109 mg/dL (70-99) 88 mg/dL (70-99) Medications Active Scripts Medications Dose Route/Sig Max Daily Dose Days Date Category Dose Instructions Levaquin (Levofloxacin) 750 Mg Tablet 1 Tab PO DAILY 09/15/19 Rx Culturelle (Lactobacillus Rhamnosus Gg) 1 Each Cap.sprink 1 Cap PO BID 09/15/19 Rx Eliquis (Apixaban) 5 Mg Tablet 5 Mg PO BID 08/02/19 Reported Toprol Xl (Metoprolol Succinate) 25 Mg Tab.er.24h 1 Tab PO DAILY 30 08/02/19 Reported Lasix (Furosemide) 20 Mg Tablet 1 Tab PO DAILY 30 05/10/19 Rx Lisinopril 40 Mg Tablet 20 Mg PO DAILY 30 05/10/19 Rx Proair Hfa (Albuterol Sulfate) 8.5 Gm Hfa.aer.ad 2.5 Mg NEB PRN Q2HR PRN 30 05/10/19 Rx Duoneb 0.5-3(2.5) Mg/3 Ml (Albuterol/Ipratropium) 3 Ml Ampul.neb 3 Ml NEB Q4HRS 30 05/09/19 Rx Albuterol Sulfate Neb Soln (Albuterol Sulfate) 0.63 Mg/3 Ml Vial.neb 0.63 Mg NEB PRN Q4HRS PRN 30 10/13/16 Rx NEEDED Zocor (Simvastatin) 20 Mg Tablet 20 Mg PO HS 10/27/14 Reported NEXT DOSE DUE TONIGHT AT BEDTIME Amlodipine Besylate 10 Mg Tablet 10 Mg PO DAILY 06/13/13 Reported NEXT DOSE DUE IN AM Potassium Chloride 10 Meq Tab.er.prt 20 Meq PO DAILY 06/13/13 Reported NEXT DOSE DUE IN AM Impression . 1. Acute on chronic hypoxic and hypercapnic respiratory failure secondary to acute on chronic systolic and diastolic heart failure in addition acute exacerbation of chronic obstructive pulmonary disease. 2. The patient with nonischemic cardiomyopathy. 3. The patient with ongoing tobacco use and likely severe chronic obstructive pulmonary disease. 4. Prior history of pneumonias. 5. History of marijuana and cocaine abuse. Continues to do cocaine. 6. Prior history of Enterobacter bacteremia. Plan . 1. I have discussed with the patient regarding smoking cessation as well as cocaine cessation. 2. prn BiPAP. Avoid hyperoxia. 3. Diuresis per cardiology 4. BiPAP p.r.n. during the day 5. Follow cardiology recommendations. 6. chest x-ray 11/24 mild improvement left base/ CHF 7. DVT prophylaxis, the patient is currently on Eliquis. 8. Empiric antibiotic were initiated. per id 9. Discussed with pt, ok with SHARON Perdomo MD Nov 29, 2019 11:11
[2019-11-29] MEDS: ANTI-COAG MONITOR BY PHARMACY. MC PRN (12:59)
--- NOTE | 2019-11-29 13:59 | PDOC ---
CARDIO Progress Notes Date and Time Date of Service 11/29/19 Time of Evaluation 1340 Subjective Subjective: No Chest Pain, No shortness of breath, No Palpitations Vitals Vitals Vital Signs Date Time Temp Pulse Resp B/P (MAP) Pulse Ox O2 Delivery O2 Flow Rate FiO2 11/29/19 12:29 Nasal Cannula 6.0 11/29/19 10:56 98.7 71 16 131/78 (95) 96 98.7 Weight Weight [ ] Input and Output Intake and Output Intake and Output 11/29/19 07:00 Intake Total 1660 ml Output Total 3100 ml Balance -1440 ml Intake Oral 1660 ml Output Urine Total 3100 ml Laboratory Labs Laboratory Tests Test 11/28/19 16:34 11/28/19 21:12 11/29/19 07:44 11/29/19 11:29 Glucose (Fingerstick) 106 mg/dL (70-99) 109 mg/dL (70-99) 88 mg/dL (70-99) 80 mg/dL (70-99) Physical Exam HEENT: Neck Supple W Full Motion Chest: Symmetric LUNGS: Other (diminished bases) Heart: RRR Abdomen: Soft N/T Extremities: No Calf Tenderness Neurology: alert, oriented, follow commands Assessment Assessment 1. Acute on chronic respiratory failure, multifactorial secondary to AECOPD, pneumonia CHF, negative for covid. Improved since admission. Pulmonary team following. Continue antibiotics per ID team. 2. Acute on chronic systolic/diastolic CHF, better compensated with diuresis. Continue current medical regimen. Follow up with Dr. Barakat as scheduled. 3. 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 5. PAFIB; presently V pacing. Continue Eliquis for stroke prophylaxis. 6. HTN: controlled 7. CKD3 8. Chronic Substance abuse; cocaine and marijuana use. 9. Tobaccoism Justicifation of Admission Dx: Justifications for Admission: Justification of Admission Dx: N/A Respiratory Failure: Severe Resp Distress BRITTON MORAN APRN Nov 29, 2019 13:59
--- NOTE | 2019-11-29 14:05 | PDOC3 ---
Discharge Summary Date of Admission: Nov 23, 2019 Date of Discharge: Nov 29, 2019 Follow-Up: 3-5 days Admitting Diagnosis comment: discharge dx Acute on chronic respiratory failure, multifactorial secondary to PNA, AECOPD, mild acute on chronic systolic CHF Gram-negative possibly gram-positive pneumonia Possible aspiration pneumonia Mild Acute on Chronic systolic/diastolic CHF Chronic mild troponin elevation: within his range, no acute changes per EKG. demand mediated with continued use of cocaine SSS/ NICM s/p BiV PPM/E [employer]-P ([employer]); prior LVEF 40% recent device check revealed 25% AFIB burden, normal function, BiV pacing 100%. PAFIB; presently V pacing. Continue Eliquis for stroke prophylaxis. SSS CHF - 40% ejection H/o A. fib HTN CKD3 Chronic Substance abuse; cocaine and marijuana use. Last use 3 days ago Tobaccoism PUI -SARS-COVID negative. 09/10 and again 11/24 negative pulmonary arterial hypertension po doxy ct chest 11/27 11/28 d/w dr tsang in [place], ok to d/c, poor prognosis due to cocaine dependency, noncompliance 39 min pt exam, chart review d/c planning , > 50% of time spent with exam, chart review, pt care coordination History of Present Illness History of Present Illness 11/28 Patient seen and examined Patient is resting comfortably in NAD Discussed with RN Charts reviewed ct chest The right upper lobe consolidation seen on exam of 09/02/2019 has resolved. Mr James is a 63 yo M w/ PMHx CHB s/p BiV pacemaker, HTN, CKD2, tobacco abuse, COPD on 4-5L home O2, CHF EF 40-45, active cocaine user, ETOH, and marijuana abuse who p/w shortness of breath that was fairly sudden onset 11/23/2019. after smoking multiple substances. He had some back pain. No anterior chest pain. He was trying to use his home nebulizer, states it wasn't helping. He does not know if he has had weight gain, does not have a scale at home. Has LE edema that is much worse as well as orthopnea and PND, not sleeping well. He has a mild cough, no hemoptysis, no weight loss. No headaches, no nausea, vomiting or diarrhea. He was afebrile, has had no recent travel or sick contacts. Seen with severe dyspnea and ABG 7.25/67/78. BNP 4839, Trop 0.04, WBC 6.6, Hb 12.9, Platelets 129, Cr 1.3, K 3.9 He continues to do cocaine and smoke and has known COPD Chest x-ray showing CHF and possible pneumonia, admitted to ICU on BIPAP for respiratory failure. Seen on BIPAP in ICU, appears comfortable on it. Afebrile. Still hypoxic. COVID 19 negative Vitals Vitals Vital Signs Date Time Temp Pulse Resp B/P (MAP) Pulse Ox O2 Delivery O2 Flow Rate FiO2 11/29/19 09:05 66 132/94 11/29/19 07:33 94 Nasal Cannula 6.0 11/29/19 07:00 98.1 18 98.1 Physical Exam Physical Exam GENERAL: Propped up in bed, alert, relaxed HEENT: Oral cavity clear NECK: Supple, no JVP, no lymphadenopathy. LUNGS: Mild congestion on the right, nonlabored HEART: S1, S2 regular. ABDOMEN: Soft, nontender EXTREMITIES: No edema, cyanosis. SKIN: No rash NEUROLOGIC: Alert, awake and appropriate. No focal neurologic deficit. . General: Alert, Oriented X3, Cooperative, No acute distress Heart: Regular rate Lungs: Clear, Other (deminished bs) Abdomen: Normal bowel sounds Extremities: No edema Skin: No breakdown FINAL DIAGNOSIS Problems Medical Problems: (1) Acute respiratory failure with hypoxia Status: Acute (2) Community acquired pneumonia Status: Acute (3) COPD exacerbation Status: Acute Brief Hospital Course Mr. James is a 64 old [sex] who presented with [ acute hypoxic, hypercapnic resp failure] CONDITION AT DISCHARGE: Improved Discharge Medications Current Medications Prednisone (Prednisone) 60 mg 1X ONCE PO Last administered on 11/23/19at 17:09; Start 11/23/19 at 17:00; Stop 11/23/19 at 17:01; Status DC Albuterol/ Ipratropium (Duoneb) 9 ml 1X ONCE NEB Last administered on 11/23/19at 17:28; Start 11/23/19 at 17:00; Stop 11/23/19 at 17:01; Status DC Sodium Chloride 1,000 ml @ 1,000 mls/hr 1X ONCE IV Last administered on 11/23/19at 17:09; Start 11/23/19 at 17:00; Stop 11/23/19 at 17:59; Status DC Levofloxacin/ Dextrose 150 ml @ 100 mls/hr 1X ONCE IV Last administered on 11/23/19 18:49; Start 11/23/19 at 18:00; Stop 11/23/19 at 19:07; Status DC Ceftriaxone Sodium (Rocephin) 2 gm 1X ONCE IVP Last administered on 11/23/19 19:24; Start 11/23/19 at 19:15; Stop 11/23/19 at 19:16; Status DC Azithromycin 250 ml @ 250 mls/hr 1X ONCE IV Last administered on 11/23/19 19:24; Start 11/23/19 at 19:15; Stop 11/23/19 at 20:14; Status DC Amlodipine Besylate (Norvasc) 10 mg DAILY PO Last administered on 11/29/19 09:05; Start 11/24/19 at 09:00 Apixaban (Eliquis) 5 mg BID PO Last administered on 11/29/19 09:04; Start 11/24/19 at 09:00 Furosemide (Lasix) 20 mg DAILY PO Last administered on 11/29/19 09:04; Start 11/24/19 at 09:00 Lisinopril (Prinivil) 20 mg DAILY PO Last administered on 11/29/19 09:03; Start 11/24/19 at 09:00 Metoprolol Succinate (Toprol Xl) 25 mg DAILY PO Last administered on 11/29/19 09:03; Start 11/24/19 at 09:00 Potassium Chloride (Klor-Con) 20 meq DAILYWBKFT PO Last administered on 11/29/19 09:05; Start 11/24/19 at 08:00 Simvastatin (Zocor) 20 mg HS PO Last administered on 11/28/19 21:19; Start 11/24/19 at 21:00 Furosemide (Lasix) 40 mg 1X ONCE IVP Last administered on 11/24/19 08:54; Start 11/24/19 at 09:00; Stop 11/24/19 at 09:01; Status DC Ceftriaxone Sodium (Rocephin) 2 gm Q24H IVP Last administered on 8/10/20at 18:07; Start 11/24/19 at 17:00; Stop 11/29/19 at 09:11; Status DC Doxycycline Hyclate 100 mg/ Dextrose 100 ml @ 50 mls/hr Q12HR IV Last administered on 11/27/19at 08:19; Start 11/24/19 at 09:00; Stop 11/27/19 at 11:28; Status DC Furosemide (Lasix) 40 mg 1X ONCE IVP Last administered on 11/24/19at 13:30; Start 11/24/19 at 10:30; Stop 11/24/19 at 10:31; Status DC Info (Anti-Coagulation Monitoring By Pharmacy) 1 each PRN DAILY PRN MC SEE COMMENTS Last administered on 11/29/19at 12:59; Start 11/24/19 at 10:00 Lactobacillus Rhamnosus (Culturelle) 1 cap BID PO Last administered on 11/29/19 09:04; Start 11/24/19 at 21:00 Potassium Chloride (Klor-Con) 40 meq 1X ONCE PO Last administered on 11/24/19at 13:30; Start 11/24/19 at 13:00; Stop 11/24/19 at 13:01; Status DC Insulin Human Lispro (HumaLOG) 0-9 UNITS TIDWMEALHC SQ ; Start 11/24/19 at 17:00 Dextrose (Dextrose 50%-Water Syringe) 12.5 gm PRN Q15MIN PRN IV SEE COMMENTS; Start 11/24/19 at 13:45 Albuterol Sulfate (Ventolin Neb Soln) 2.5 mg PRN Q2HR PRN NEB SHORTNESS OF BREATH; Start 11/24/19 at 13:45 Albuterol/ Ipratropium (Duoneb) 3 ml Q4HRS NEB Last administered on 11/29/19at 12:28; Start 11/24/19 at 16:00 Furosemide (Lasix) 40 mg 1X ONCE IVP Last administered on 11/25/19at 11:20; Start 11/25/19 at 11:00; Stop 11/25/19 at 11:01; Status DC Doxycycline Hyclate (Vibra-Tab) 100 mg BID PO Last administered on 11/29/19at 09:04; Start 11/27/19 at 21:00 Active Scripts Active Levaquin (Levofloxacin) 750 Mg Tablet 1 Tab PO DAILY 10 Days Culturelle (Lactobacillus Rhamnosus Gg) 1 Each Cap.sprink 1 Cap PO BID 10 Days Lasix (Furosemide) 20 Mg Tablet 1 Tab PO DAILY 30 Days Lisinopril 40 Mg Tablet 20 Mg PO DAILY 30 Days Proair Hfa (Albuterol Sulfate) 8.5 Gm Hfa.aer.ad 2.5 Mg NEB PRN Q2HR PRN 30 Days Duoneb 0.5-3(2.5) Mg/3 Ml (Albuterol/Ipratropium) 3 Ml Ampul.neb 3 Ml NEB Q4HRS 30 Days Albuterol Sulfate Neb Soln (Albuterol Sulfate) 0.63 Mg/3 Ml Vial.neb 0.63 Mg NEB PRN Q4HRS PRN 30 Days NEEDED Reported Eliquis (Apixaban) 5 Mg Tablet 5 Mg PO BID Toprol Xl (Metoprolol Succinate) 25 Mg Tab.er.24h 1 Tab PO DAILY 30 Days Zocor (Simvastatin) 20 Mg Tablet 20 Mg PO HS NEXT DOSE DUE TONIGHT AT BEDTIME Amlodipine Besylate 10 Mg Tablet 10 Mg PO DAILY NEXT DOSE DUE IN AM Potassium Chloride 10 Meq Tab.er.prt 20 Meq PO DAILY NEXT DOSE DUE IN AM Vital Signs Vital Signs Date Time Temp Pulse Resp B/P (MAP) Pulse Ox O2 Delivery O2 Flow Rate FiO2 11/29/19 12:29 Nasal Cannula 6.0 11/29/19 10:56 98.7 71 16 131/78 (95) 96 98.7 Labs Laboratory Tests Test 11/27/19 16:40 11/27/19 21:48 11/28/19 05:15 11/28/19 07:54 Glucose (Fingerstick) 109 mg/dL (70-99) 96 mg/dL (70-99) 120 mg/dL (70-99) White Blood Count 5.6 x10^3/uL (4.0-11.0) Red Blood Count 4.19 x10^6/uL (4.30-5.70) Hemoglobin 12.7 g/dL (13.0-17.5) Hematocrit 38.2 % (39.0-53.0) Mean Corpuscular Volume 91 fL (79-100) Mean Corpuscular Hemoglobin 30 pg (25-35) Mean Corpuscular Hemoglobin Concent 33 g/dL (31-37) Red Cell Distribution Width 16.1 % (11.5-14.5) Platelet Count 132 x10^3/uL (140-400) Neutrophils (%) (Auto) 69 % (31-73) Lymphocytes (%) (Auto) 15 % (24-48) Monocytes (%) (Auto) 12 % (0-9) Eosinophils (%) (Auto) 3 % (0-3) Basophils (%) (Auto) 1 % (0-3) Neutrophils # (Auto) 3.8 x10^3/uL (1.8-7.7) Lymphocytes # (Auto) 0.8 x10^3/uL (1.0-4.8) Monocytes # (Auto) 0.7 x10^3/uL (0.0-1.1) Eosinophils # (Auto) 0.2 x10^3/uL (0.0-0.7) Basophils # (Auto) 0.1 x10^3/uL (0.0-0.2) Sodium Level 143 mmol/L (136-145) Potassium Level 3.9 mmol/L (3.5-5.1) Chloride Level 105 mmol/L (98-107) Carbon Dioxide Level 37 mmol/L (21-32) Anion Gap 1 (6-14) Blood Urea Nitrogen 15 mg/dL (8-26) Creatinine 1.1 mg/dL (0.7-1.3) Estimated GFR (Cockcroft-Gault) 81.8 Glucose Level 93 mg/dL (70-99) Calcium Level 9.5 mg/dL (8.5-10.1) Test 11/28/19 11:20 11/28/19 16:34 11/28/19 21:12 11/29/19 07:44 Glucose (Fingerstick) 111 mg/dL (70-99) 106 mg/dL (70-99) 109 mg/dL (70-99) 88 mg/dL (70-99) Test 11/29/19 11:29 Glucose (Fingerstick) 80 mg/dL (70-99) Laboratory Tests Test 11/28/19 16:34 11/28/19 21:12 11/29/19 07:44 11/29/19 11:29 Glucose (Fingerstick) 106 mg/dL (70-99) 109 mg/dL (70-99) 88 mg/dL (70-99) 80 mg/dL (70-99) Allergies Allergies Coded Allergies Type Severity Reaction Last Updated Verified levofloxacin Allergy Unknown Itching 11/24/19 Yes Disposition/Orders: D/C to Home Justicifation of Admission Dx: Justifications for Admission: Justification of Admission Dx: N/A Respiratory Failure: Severe Resp Distress RANJITH RICHARDSON MD Nov 29, 2019 14:05
[2019-11-29] MEDS ORDERED: LACT1CAP19 PO (14:08)
[2019-11-29] MEDS ORDERED: INSU100V35 SQ (14:08)
[2019-11-29] MEDS ORDERED: DOXY100T PO (14:08)
--- NOTE | 2019-11-29 14:09 | DISCH ---
DISCHARGE INSTRUCTIONS Condition on Discharge Condition on Discharge: Guarded Activity After Discharge Activity Instructions for Disc: Activity as tolerated Lifting Instructions after Dis: No pulling or pushing Exercise Instruction after Dis: Progress as tolerated Driving Instructions after Dis: Do not drive, Do not drive today Weight Bearing Status after Di: As tolerated Diet after Discharge Diet after Discharge: Cardiac Wound Incision Care Wound/Incision Care: No wound care needed Checks after Discharge Checks after discharge: Check blood press - daily, Weigh Yourself Daily Contacting the DR. after DC Call your doctor for: Concerns you may have Follow-Up Follow up with: PCP IN 3-8 DAYS Treatment/Equipment after DC Adaptive Equipment Issued: None Discharge Respiratory Equipmen: Oxygen, Nebulizer, RANJITH EDWARDS MD Nov 29, 2019 14:09
[2019-11-29 14:44] LABS: BASE EXCESS COOX 6 mmol/L (-3-3); HCO3 COOX 33 mmol/L (21-28); METHEMOGLOBIN 0.5 % (0.0-1.9); OXYHEMOGLOBIN 89.6 %; PCO2 COOX 56 mmHg (35-46); PO2 COOX 60 mmHg (65-108); SAT O2 COOX 90 % (92-99)
[2019-11-29 15:00] VITALS: BP 117/89
[2020-01-10] MEDS ORDERED: PRED50TA PO (14:42)
== END 2019-11-29 18:55 | disposition home or self-care (01) | DRG 177 ==
LOC: ER 16:13 → 1 WEST ICU 20:01 → 5 NORTH 11-24 17:42
PROVIDERS: ADMIT Internal Medicine; ATTEND Internal Medicine
PROC: 5A09357 Assistance with Respiratory Ventilation, Less than 24 Consecutive Hours, Continuous Positive Airway Pressure (ICD-10-PCS; principal; 2019-11-23)
PROC: 5A09357 Assistance with Respiratory Ventilation, Less than 24 Consecutive Hours, Continuous Positive Airway Pressure (ICD-10-PCS; 2019-11-24)
PROC: 5A09357 Assistance with Respiratory Ventilation, Less than 24 Consecutive Hours, Continuous Positive Airway Pressure (ICD-10-PCS; 2019-11-25)
PROC: 5A09357 Assistance with Respiratory Ventilation, Less than 24 Consecutive Hours, Continuous Positive Airway Pressure (ICD-10-PCS; 2019-11-26)
PROC: 5A09357 Assistance with Respiratory Ventilation, Less than 24 Consecutive Hours, Continuous Positive Airway Pressure (ICD-10-PCS; 2019-11-27)
PROC: 5A09357 Assistance with Respiratory Ventilation, Less than 24 Consecutive Hours, Continuous Positive Airway Pressure (ICD-10-PCS; 2019-11-28)
DX: J15.6 Pneumonia due to other Gram-negative bacteria (principal); I50.43 Acute on chronic combined systolic (congestive) and diastolic (congestive) heart failure; J96.22 Acute and chronic respiratory failure with hypercapnia; J96.21 Acute and chronic respiratory failure with hypoxia; F14.20 Cocaine dependence, uncomplicated; I13.0 Hypertensive heart and chronic kidney disease with heart failure and stage 1 through stage 4 chronic kidney disease, or unspecified chronic kidney disease; I42.8 Other cardiomyopathies; J98.11 Atelectasis; N17.9 Acute kidney failure, unspecified; J69.0 Pneumonitis due to inhalation of food and vomit; E78.5 Hyperlipidemia, unspecified; F17.210 Nicotine dependence, cigarettes, uncomplicated; I27.21 Secondary pulmonary arterial hypertension; I44.7 Left bundle-branch block, unspecified; I48.0 Paroxysmal atrial fibrillation; I49.5 Sick sinus syndrome; J43.2 Centrilobular emphysema; N18.3 Chronic kidney disease, stage 3 (moderate); Z20.828 Contact with and (suspected) exposure to other viral communicable diseases; Z82.49 Family history of ischemic heart disease and other diseases of the circulatory system; Z83.3 Family history of diabetes mellitus; Z91.19 Patient's noncompliance with other medical treatment and regimen; Z95.0 Presence of cardiac pacemaker; F12.10 Cannabis abuse, uncomplicated; Z79.899 Other long term (current) drug therapy
CPT/HCPCS: 36415; 36600; 71045; 71046; 71250; 80048; 82803; 82805; 82962; 83735; 83880; 84145; 84484; 85025; 85027; 93005; 94640; 94660; 94760; 96361; 96365; 96366; 96368; 96375; 99291; J0456; J0696; J1815; J1940; J1956; J3490; J7030; J7060; J7512; G0378; U0003-CS

== ENCOUNTER → 2019-12-01 | Outpatient (CLI) | payer MEDICARE, MEDICAID ==
[2019-11-29 15:00] VITALS: BP 117/89
[~2019-12-01] MED LIST changes: +INSU100V35 SQ
--- NOTE | 2019-12-01 17:40 | RAD ---
INDICATION: Reason: NEOPLASM OF UNCERTAIN BEHAVIOR OF UNSPECIFIED KIDNEY. / Spl. Instructions: / History: COMPARISON: October 2014 TECHNIQUE: Grayscale and color ultrasound images obtained of the bilateral kidneys and bladder. FINDINGS: Right Kidney: 108 mm. No hydronephrosis. Left Kidney: 96 mm. No hydronephrosis. Bladder: 111 cc prevoid Prostate measures approximately 38 x 42 x 43 mm. There is a couple right renal cysts measuring up to 33 and 23 mm. IMPRESSION: * There is a couple of right renal cysts identified. Electronically signed by: Brooks Pike MD (12/01/2019 5:37 PM) [id number]
== END | disposition home or self-care (01) ==
LOC: US 14:48
PROVIDERS: ATTEND Nurse Practitioner Adult Health
DX: D41.00 Neoplasm of uncertain behavior of unspecified kidney (principal); N28.1 Cyst of kidney, acquired
CPT/HCPCS: 76770

== ENCOUNTER 2019-12-25 10:52 | Inpatient (IN) | payer MEDICARE, MEDICAID ==
[~2019-12-25] VITALS: Ht 185.4 cm; Wt 83.2 kg
[2019-12-25] VITALS (10 sets, daily range): BP systolic 100–153; BP diastolic 58–95
[2019-12-25] MEDS ORDERED: DEXAMETHASONE SOD PHOS 4 MG/ML VIAL IVP ONE (11:00)
[2019-12-25] MEDS ORDERED: IPRATRPIUM/ALBUTEROL 0.5/2.5MG 3 ML NEBU. NEB ONE (11:00)
[2019-12-25 11:10] LABS: BASO # 0.1 x10^3/uL (0.0-0.2); BASO % 1 % (0-3); EOS # 0.1 x10^3/uL (0.0-0.7); EOS % 2 % (0-3); HEMATOCRIT 38.4 % (39.0-53.0); HEMOGLOBIN 12.4 g/dL (13.0-17.5); LYMPH # 0.7 x10^3/uL (1.0-4.8); LYMPH % 11 % (24-48); MEAN CORPUSCULAR HEMOGLOBIN 30 pg (25-35); MEAN CORPUSCULAR HGB CONC 32 g/dL (31-37); MEAN CORPUSCULAR VOLUME 93 fL (79-100); MONO # 0.8 x10^3/uL (0.0-1.1); MONO % 11 % (0-9); NEUT % 75 % (31-73); PLATELET COUNT 124 x10^3/uL (140-400); RED BLOOD COUNT 4.12 x10^6/uL (4.30-5.70); RED CELL DISTRIBUTION WIDTH 16.3 % (11.5-14.5); WHITE BLOOD COUNT 6.7 x10^3/uL (4.0-11.0)
--- NOTE | 2019-12-25 11:12 | EKG ---
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
[2019-12-25 11:17] LABS: PROTHROMBIN TIME PATIENT 14.2 SEC (11.7-14.0)
[2019-12-25 11:22] LABS: CALCIUM 9.7 mg/dL (8.5-10.1); CREATININE 1.5 mg/dL (0.7-1.3); GFR 57.2
--- NOTE | 2019-12-25 11:25 | RAD ---
AP chest x-ray HISTORY: Shortness of breath and cough. COMPARISON: Chest x-ray November 28, 2019 and priors. FINDINGS: 3-lead cardiac pacemaker. Cardiomegaly stable. Apical emphysema. Prominence of the pulmonary vasculature particularly at the right lower hilum although this is similar to prior CT imaging. The right upper lobe fissural nodular density on the prior CT study is difficult to visualize on this x-ray. There are increased perihilar lower lobe interstitial and alveolar opacities since the prior exam. Limited visualization of the right diaphragm a small right pleural effusion is not excluded. IMPRESSION: Right hilar and lower lobe interstitial and alveolar infiltrates have increased since prior x-rays from November 2019 may represent pulmonary edema or multilobar pneumonia. There may be a small right pleural effusion. See above. Electronically signed by: Jose Alfredo Donnelly MD (12/25/2019 11:22 AM) [id number]
[2019-12-25 11:28] LABS: ALBUMIN 3.3 g/dL (3.4-5.0); ALBUMIN/GLOBULIN RATIO 0.8 (1.0-1.7); TOTAL BILIRUBIN 1.3 mg/dL (0.2-1.0); TOTAL PROTEIN 7.4 g/dL (6.4-8.2)
--- NOTE | 2019-12-25 11:31 | PHYS DOC ---
Past Medical History Past Medical History: Alcoholism, CHF, COPD, Hypertension Additional Past Medical Histor: CRACK, COCAINE, MARIJUANA LAST USE ABOUT 3 DAYS AGO Past Surgical History: Other Additional Past Surgical Histo: HERNIA SURGERY REPAIR. Smoking Status: Current Every Day Smoker Alcohol Use: Heavy Additional Information: PER PATIENT DRINKS A SIX PACK OF BEER EVERY OTHER DAY. Drug Use: Cocaine, Marijuana General Adult EDM: Chief Complaint: SHORTNESS OF BREATH HPI: HPI: Patient is a 64 year old [f__sex] who presents with [] Review of Systems: Review of Systems: Constitutional: Denies fever or chills. [] Eyes: Denies change in visual acuity. [] HENT: Denies nasal congestion or sore throat. [] Respiratory: Denies cough or shortness of breath. [] Cardiovascular: Denies chest pain or edema. [] GI: Denies abdominal pain, nausea, vomiting, bloody stools or diarrhea. [] : Denies dysuria. [] Musculoskeletal: Denies back pain or joint pain. [] Integument: Denies rash. [] Neurologic: Denies headache, focal weakness or sensory changes. [] Endocrine: Denies polyuria or polydipsia. [] Lymphatic: Denies swollen glands. [] Psychiatric: Denies depression or anxiety. [] Heart Score: Risk Factors: Risk Factors: DM, Current or recent (<one month) smoker, HTN, HLP, family history of CAD, obesity. Risk Scores: Score 0 - 3: 2.5% MACE over next 6 weeks - Discharge Home Score 4 - 6: 20.3% MACE over next 6 weeks - Admit for Clinical Observation Score 7 - 10: 72.7% MACE over next 6 weeks - Early Invasive Strategies Current Medications: Current Medications Medications (Trade) Dose Ordered Sig/Dex Start Time Stop Time Status Last Admin Dose Admin Albuterol/ Ipratropium (Duoneb) 3 ml 1X ONCE 12/25/19 11:00 12/25/19 11:03 DC Dexamethasone Sodium Phosphate (Decadron) 10 mg 1X ONCE 12/25/19 11:00 12/25/19 11:03 DC Allergies: Allergies: Allergies Coded Allergies Type Severity Reaction Last Updated Verified levofloxacin Allergy Unknown Itching 11/24/19 Yes Physical Exam: PE: Constitutional: Well developed, well nourished, no acute distress, non-toxic appearance. [] HENT: Normocephalic, atraumatic, bilateral external ears normal, oropharynx moist, no oral exudates, nose normal. [] Eyes: PERRLA, EOMI, conjunctiva normal, no discharge. [] Neck: Normal range of motion, no tenderness, supple, no stridor. [] Cardiovascular:Heart rate regular rhythm, no murmur [] Lungs & Thorax: Bilateral breath sounds clear to auscultation [] Abdomen: Bowel sounds normal, soft, no tenderness, no masses, no pulsatile mas ses. [] Skin: Warm, dry, no erythema, no rash. [] Back: No tenderness, no CVA tenderness. [] Extremities: No tenderness, no cyanosis, no clubbing, ROM intact, no edema. [] Neurologic: Alert and oriented X 3, normal motor function, normal sensory function, no focal deficits noted. [] Psychologic: Affect normal, judgement normal, mood normal. [] Current Patient Data: Labs: Laboratory Tests Test 12/25/19 10:55 White Blood Count 6.7 x10^3/uL (4.0-11.0) Red Blood Count 4.12 x10^6/uL (4.30-5.70) L Hemoglobin 12.4 g/dL (13.0-17.5) L Hematocrit 38.4 % (39.0-53.0) L Mean Corpuscular Volume 93 fL (79-100) Mean Corpuscular Hemoglobin 30 pg (25-35) Mean Corpuscular Hemoglobin Concent 32 g/dL (31-37) Red Cell Distribution Width 16.3 % (11.5-14.5) H Platelet Count 124 x10^3/uL (140-400) L Neutrophils (%) (Auto) 75 % (31-73) H Lymphocytes (%) (Auto) 11 % (24-48) L Monocytes (%) (Auto) 11 % (0-9) H Eosinophils (%) (Auto) 2 % (0-3) Basophils (%) (Auto) 1 % (0-3) Neutrophils # (Auto) 5.0 x10^3/uL (1.8-7.7) Lymphocytes # (Auto) 0.7 x10^3/uL (1.0-4.8) L Monocytes # (Auto) 0.8 x10^3/uL (0.0-1.1) Eosinophils # (Auto) 0.1 x10^3/uL (0.0-0.7) Basophils # (Auto) 0.1 x10^3/uL (0.0-0.2) Prothrombin Time 14.2 SEC (11.7-14.0) H Prothrombin Time INR 1.1 (0.8-1.1) Activated Partial Thromboplast Time 30 SEC (24-38) Sodium Level 140 mmol/L (136-145) Potassium Level 4.0 mmol/L (3.5-5.1) Chloride Level 101 mmol/L (98-107) Carbon Dioxide Level 33 mmol/L (21-32) H Anion Gap 6 (6-14) Blood Urea Nitrogen 17 mg/dL (8-26) Creatinine 1.5 mg/dL (0.7-1.3) H Estimated GFR (Cockcroft-Gault) 57.2 BUN/Creatinine Ratio 11 (6-20) Glucose Level 91 mg/dL (70-99) Calcium Level 9.7 mg/dL (8.5-10.1) Total Bilirubin 1.3 mg/dL (0.2-1.0) H Aspartate Amino Transferase (AST) 14 U/L (15-37) L Alanine Aminotransferase (ALT) 15 U/L (16-63) L Alkaline Phosphatase 70 U/L (46-116) Total Protein 7.4 g/dL (6.4-8.2) Albumin 3.3 g/dL (3.4-5.0) L Albumin/Globulin Ratio 0.8 (1.0-1.7) L Ethyl Alcohol Level < 10 mg/dL (0-10) Laboratory Tests 12/25/19 10:55 Laboratory Tests 12/25/19 10:55 Vital Signs: Vital Signs Date Time Temp Pulse Resp B/P (MAP) Pulse Ox O2 Delivery O2 Flow Rate FiO2 12/25/19 11:13 93 BiPAP/CPAP 12/25/19 11:07 99.0 67 26 163/106 (125) 99.0 EKG: EKG: @1057 Paced at 77bpm, Radiology/Procedures: Radiology/Procedures: PROCEDURE: PORTABLE CHEST 1V AP chest x-ray HISTORY: Shortness of breath and cough. COMPARISON: Chest x-ray November 28, 2019 and priors. FINDINGS: 3-lead cardiac pacemaker. Cardiomegaly stable. Apical emphysema. Prominence of the pulmonary vasculature particularly at the right lower hilum although this is similar to prior CT imaging. The right upper lobe fissural nodular density on the prior CT study is difficult to visualize on this x-ray. There are increased perihilar lower lobe interstitial and alveolar opacities since the prior exam. Limited visualization of the right diaphragm a small right pleural effusion is not excluded. IMPRESSION: Right hilar and lower lobe interstitial and alveolar infiltrates have increased since prior x-rays from November 2019 may represent pulmonary edema or multilobar pneumonia. There may be a small right pleural effusion. See above. Electronically signed by: Jose Alfredo Donnelly MD (12/25/2019 11:22 AM) [id number] Course & Med Decision Making: Course & Med Decision Making Pertinent Labs and Imaging studies reviewed. (See chart for details) [] Dragon Disclaimer: Dragon Disclaimer: This electronic medical record was generated, in whole or in part, using a voice recognition dictation system. Departure Departure Impression: Primary Impression: Acute respiratory failure with hypoxia Additional Impressions: Cocaine abuse CHF exacerbation Qualified Codes: I50.9 - Heart failure, unspecified Suspected 2019 novel coronavirus infection Disposition: ADMITTED INPATIENT Admitting Physician: NOE Tyler) Condition: GUARDED Referrals: MARTINEZ DIAL APRN (PCP) Justicifation of Admission Dx: Justifications for Admission: Justification of Admission Dx: Yes Respiratory Failure: Severe Resp Distress Comments: Respiratory Failure, CHF, Hypoxia, COVID PUI, Cocaine abuse COVID-19 Assessment: COVID-19 Patient Risks: Age 65 or older: No Sign of co-morbidity: Yes Exp to person + for COVID: No Exp to PUI: No Travel from affected area: No Lower respiratory symptoms: Yes Fever: No PPE Use: Full PPE with N95 mask or PAPR: Yes Critical Care Time Critical care time was 30 minutes which includes time at bedside, spent in discussion of patient's care with specialists and/or family members, with interpretation of laboratory and/or radiological studies and is exclusive of procedures. PABLO SILVER DO Dec 25, 2019 11:31
[2019-12-25] MEDS ORDERED: BUMETANIDE 1 MG/4 ML VIAL. IV ONE ×2 (12:45→20:00)
[2019-12-25 13:13] LABS: BASE EXCESS COOX 2 mmol/L (-3-3); HCO3 COOX 29 mmol/L (21-28); METHEMOGLOBIN 0.3 % (0.0-1.9); OXYHEMOGLOBIN 88.9 %; PCO2 COOX 56 mmHg (35-46); PO2 COOX 66 mmHg (65-108); SAT O2 COOX 92 % (92-99)
[2019-12-25] MEDS ORDERED: ONDANSETRON PF 4 MG/2 ML VIAL. IV PRN (13:15)
[2019-12-25] MEDS ORDERED: IPRATRPIUM/ALBUTEROL 0.5/2.5MG 3 ML NEBU. NEB SCH (16:00)
--- NOTE | 2019-12-25 16:56 | NUR ---
Pt admitted to room 112 from the ED via stretcher @ 1605. Pt ambulated from the stretcher to the bed without difficulties, gait steady. Attached to monitoring equipment, AV paced with PVC's on monitor. O2 sat 83-84% on NC at 6 Liters. Pt placed on Bipap and O2 sats increased to 97%. Saline lock to left wrist flushed and has good blood return. Pt is A/Ox4, no c/o pain. See assessment for further details.
--- NOTE | 2019-12-25 16:59 | NUR ---
Dr. Desai notified of consult at [id number]. Dr. Abarca paged at [phone], awaiting return call .
--- NOTE | 2019-12-25 17:15 | NUR ---
Dr. Abarca returned call and new orders received.
[2019-12-25] MEDS: methylPREDNISolone SOD SUCC PF 40 MG/ML VIAL. IV SCH ×2 (17:20→21:29)
--- NOTE | 2019-12-25 17:20 | PDOC1 ---
History and Physical Date of Admission Date of Admission DATE: 12/25/19 TIME: 17:19 Identification/Chief Complaint Chief Complaint SOB Source Source: Patient History of Present Illness History of Present Illness Patient is a 64 yo male who presents with complaint of worsening shortness of breath for the past 2 days. He states his symptoms started 3 days ago after s moking crack cocaine. He has had associated cough productive of yellow sputum. His symptoms are aggravated by exertion and alleviated by sitting up. He denies any fever. Cr 1.5, Blood Glucose 208, BNP 6,323 Past Medical History Cardiovascular: CHF, HTN, Hyperlipidemia Pulmonary: Asthma, COPD GI: Other Heme/Onc: No pertinent hx Hepatobiliary: No pertinent hx Psych: No pertinent hx Rheumatologic: No pertinent hx Infectious disease: No pertinent hx Renal/: Chronic renal insuff Endocrine: No pertinent hx Past Surgical History Past Surgical History: Appendectomy, Hernia Repair, Other Family History Family History: Coronary Artery Disease, Diabetes, Hypertension Social History Smoke: 1 pack per day ALCOHOL: heavy Drugs: Cocaine, Marijuana Current Problem List Problem List Problems Medical Problems: (1) Acute respiratory failure with hypoxia Status: Acute (2) CHF exacerbation Status: Acute (3) Suspected 2019 novel coronavirus infection Status: Acute Current Medications Current Medications Current Medications Albuterol/ Ipratropium (Duoneb) 3 ml 1X ONCE NEB Last administered on 12/25/19at 11:32; Start 12/25/19 at 11:00; Stop 12/25/19 at 11:03; Status DC Dexamethasone Sodium Phosphate (Decadron) 10 mg 1X ONCE IVP Last administered on 12/25/19at 13:33; Start 12/25/19 at 11:00; Stop 12/25/19 at 11:03; Status DC Bumetanide (Bumex) 1 mg 1X ONCE IV Last administered on 12/25/19at 13:33; Start 12/25/19 at 12:45; Stop 12/25/19 at 12:46; Status DC Ondansetron HCl (Zofran) 4 mg PRN Q8HRS PRN IV NAUSEA/VOMITING Last administered on 12/25/19at 13:32; Start 12/25/19 at 13:15; Stop 12/26/19 at 13:14 Albuterol/ Ipratropium (Duoneb) 3 ml RTQID NEB ; Start 12/25/19 at 16:00; Stop 12/25/19 at 14:14; Status DC Albuterol/ Ipratropium (Duoneb) 3 ml RTQID NEB ; Start 12/26/19 at 16:00; Stop 12/27/19 at 15:59 Methylprednisolone Sodium Succinate (SOLU-Medrol 40MG VIAL) 40 mg Q8HRS IV ; Start 12/25/19 at 17:00 Bumetanide (Bumex) 1 mg 1X ONCE IV ; Start 12/25/19 at 20:00; Stop 12/25/19 at 20:01; Status UNV Active Scripts Active Culturelle (Lactobacillus Rhamnosus Gg) 1 Each Cap.sprink 1 Cap PO BID 30 Days Doxycycline Hyclate 100 Mg Tablet 100 Mg PO BID 10 Days Culturelle (Lactobacillus Rhamnosus Gg) 1 Each Cap.sprink 1 Cap PO BID 10 Days Lasix (Furosemide) 20 Mg Tablet 1 Tab PO DAILY 30 Days Lisinopril 40 Mg Tablet 20 Mg PO DAILY 30 Days Proair Hfa (Albuterol Sulfate) 8.5 Gm Hfa.aer.ad 2.5 Mg NEB PRN Q2HR PRN 30 Days Duoneb 0.5-3(2.5) Mg/3 Ml (Albuterol/Ipratropium) 3 Ml Ampul.neb 3 Ml NEB Q4HRS 30 Days Albuterol Sulfate Neb Soln (Albuterol Sulfate) 0.63 Mg/3 Ml Vial.neb 0.63 Mg NEB PRN Q4HRS PRN 30 Days NEEDED Reported Eliquis (Apixaban) 5 Mg Tablet 5 Mg PO BID Toprol Xl (Metoprolol Succinate) 25 Mg Tab.er.24h 1 Tab PO DAILY 30 Days Zocor (Simvastatin) 20 Mg Tablet 20 Mg PO HS NEXT DOSE DUE TONIGHT AT BEDTIME Amlodipine Besylate 10 Mg Tablet 10 Mg PO DAILY NEXT DOSE DUE IN AM Potassium Chloride 10 Meq Tab.er.prt 20 Meq PO DAILY NEXT DOSE DUE IN AM Allergies Allergies: Coded Allergies: levofloxacin (Verified Allergy, Unknown, Itching, 11/24/19) ROS General: No: Chills, Night Sweats PSYCHOLOGICAL ROS: No: Hallucinations, Suicidal ideation Eyes: No Blurry vision, No Loss of vision HEENT: No: Nasal discharge, Sore Throat ALLERGY AND IMMUNOLOGY: No: Hives, Nasal Congestion Hematological and Lymphatic: No: Bleeding Problems, Brusing Respiratory: YES: Cough, Shortness of breath Cardiovascular: yes Orthopnea; No Chest Pain Gastrointestinal: No Nausea, No Vomiting, No Abdominal Pain Genitourinary: No Dysuria, No Frequency Musculoskeletal: No Joint Stiffness, No Joint Swelling Neurological: No Headaches, No Numbness/Tingling Skin: No Dry Skin, No Rash Physical Exam General: Alert, Oriented X3, Cooperative, mild distress HEENT: Atraumatic, EOMI Lungs: Other (bilateral wheezing, bibasilar rales) Heart: RRR, no rubs Cardiovascular: S1, S2 Abdomen: Normal bowel sounds, Soft, No tenderness Extremities: Other (2+ bilateral leg edema) Skin: No breakdown, No significant lesion Neuro: Normal speech, Sensation intact Psych/Mental Status: Mental status NL, Mood NL Vitals Vitals Vital Signs Date Time Temp Pulse Resp B/P (MAP) Pulse Ox O2 Delivery O2 Flow Rate FiO2 12/25/19 16:45 72 22 138/92 (107) 98 BiPAP/CPAP 12/25/19 16:30 98.3 98.3 Labs Labs Laboratory Tests Test 12/25/19 10:55 12/25/19 13:08 12/25/19 16:30 White Blood Count 6.7 x10^3/uL (4.0-11.0) Red Blood Count 4.12 x10^6/uL (4.30-5.70) Hemoglobin 12.4 g/dL (13.0-17.5) Hematocrit 38.4 % (39.0-53.0) Mean Corpuscular Volume 93 fL (79-100) Mean Corpuscular Hemoglobin 30 pg (25-35) Mean Corpuscular Hemoglobin Concent 32 g/dL (31-37) Red Cell Distribution Width 16.3 % (11.5-14.5) Platelet Count 124 x10^3/uL (140-400) Neutrophils (%) (Auto) 75 % (31-73) Lymphocytes (%) (Auto) 11 % (24-48) Monocytes (%) (Auto) 11 % (0-9) Eosinophils (%) (Auto) 2 % (0-3) Basophils (%) (Auto) 1 % (0-3) Neutrophils # (Auto) 5.0 x10^3/uL (1.8-7.7) Lymphocytes # (Auto) 0.7 x10^3/uL (1.0-4.8) Monocytes # (Auto) 0.8 x10^3/uL (0.0-1.1) Eosinophils # (Auto) 0.1 x10^3/uL (0.0-0.7) Basophils # (Auto) 0.1 x10^3/uL (0.0-0.2) Prothrombin Time 14.2 SEC (11.7-14.0) Prothromb Time International Ratio 1.1 (0.8-1.1) Activated Partial Thromboplast Time 30 SEC (24-38) Sodium Level 140 mmol/L (136-145) Potassium Level 4.0 mmol/L (3.5-5.1) Chloride Level 101 mmol/L (98-107) Carbon Dioxide Level 33 mmol/L (21-32) Anion Gap 6 (6-14) Blood Urea Nitrogen 17 mg/dL (8-26) Creatinine 1.5 mg/dL (0.7-1.3) Estimated GFR (Cockcroft-Gault) 57.2 BUN/Creatinine Ratio 11 (6-20) Glucose Level 91 mg/dL (70-99) Lactic Acid Level 0.8 mmol/L (0.4-2.0) Calcium Level 9.7 mg/dL (8.5-10.1) Total Bilirubin 1.3 mg/dL (0.2-1.0) Aspartate Amino Transf (AST/SGOT) 14 U/L (15-37) Alanine Aminotransferase (ALT/SGPT) 15 U/L (16-63) Alkaline Phosphatase 70 U/L (46-116) Creatine Kinase 99 U/L (39-308) Creatine Kinase MB (Mass) 2.0 ng/mL (0.0-3.6) Creatine Kinase MB Relative Index 2.0 % (0-4) Troponin I Quantitative 0.070 ng/mL (0.000-0.055) 0.057 ng/mL (0.000-0.055) RS-Dgl-V-Type Natriuretic Peptide 6323 pg/mL (0-124) Total Protein 7.4 g/dL (6.4-8.2) Albumin 3.3 g/dL (3.4-5.0) Albumin/Globulin Ratio 0.8 (1.0-1.7) Ethyl Alcohol Level < 10 mg/dL (0-10) O2 Saturation 92 % (92-99) Arterial Blood pH 7.33 (7.35-7.45) Arterial Blood pCO2 at Patient Temp 56 mmHg (35-46) Arterial Blood pO2 at Patient Temp 66 mmHg (65-108) Arterial Blood HCO3 29 mmol/L (21-28) Arterial Blood Base Excess 2 mmol/L (-3-3) Oxyhemoglobin 88.9 % Methemoglobin 0.3 % (0.0-1.9) Carbon Monoxide, Quantitative 2.7 % (0.0-1.9) FiO2 40 Laboratory Tests Test 12/25/19 10:55 12/25/19 13:08 12/25/19 16:30 White Blood Count 6.7 x10^3/uL (4.0-11.0) Red Blood Count 4.12 x10^6/uL (4.30-5.70) Hemoglobin 12.4 g/dL (13.0-17.5) Hematocrit 38.4 % (39.0-53.0) Mean Corpuscular Volume 93 fL (79-100) Mean Corpuscular Hemoglobin 30 pg (25-35) Mean Corpuscular Hemoglobin Concent 32 g/dL (31-37) Red Cell Distribution Width 16.3 % (11.5-14.5) Platelet Count 124 x10^3/uL (140-400) Neutrophils (%) (Auto) 75 % (31-73) Lymphocytes (%) (Auto) 11 % (24-48) Monocytes (%) (Auto) 11 % (0-9) Eosinophils (%) (Auto) 2 % (0-3) Basophils (%) (Auto) 1 % (0-3) Neutrophils # (Auto) 5.0 x10^3/uL (1.8-7.7) Lymphocytes # (Auto) 0.7 x10^3/uL (1.0-4.8) Monocytes # (Auto) 0.8 x10^3/uL (0.0-1.1) Eosinophils # (Auto) 0.1 x10^3/uL (0.0-0.7) Basophils # (Auto) 0.1 x10^3/uL (0.0-0.2) Prothrombin Time 14.2 SEC (11.7-14.0) Prothromb Time International Ratio 1.1 (0.8-1.1) Activated Partial Thromboplast Time 30 SEC (24-38) Sodium Level 140 mmol/L (136-145) Potassium Level 4.0 mmol/L (3.5-5.1) Chloride Level 101 mmol/L (98-107) Carbon Dioxide Level 33 mmol/L (21-32) Anion Gap 6 (6-14) Blood Urea Nitrogen 17 mg/dL (8-26) Creatinine 1.5 mg/dL (0.7-1.3) Estimated GFR (Cockcroft-Gault) 57.2 BUN/Creatinine Ratio 11 (6-20) Glucose Level 91 mg/dL (70-99) Lactic Acid Level 0.8 mmol/L (0.4-2.0) Calcium Level 9.7 mg/dL (8.5-10.1) Total Bilirubin 1.3 mg/dL (0.2-1.0) Aspartate Amino Transf (AST/SGOT) 14 U/L (15-37) Alanine Aminotransferase (ALT/SGPT) 15 U/L (16-63) Alkaline Phosphatase 70 U/L (46-116) Creatine Kinase 99 U/L (39-308) Creatine Kinase MB (Mass) 2.0 ng/mL (0.0-3.6) Creatine Kinase MB Relative Index 2.0 % (0-4) Troponin I Quantitative 0.070 ng/mL (0.000-0.055) 0.057 ng/mL (0.000-0.055) WG-Lwi-N-Type Natriuretic Peptide 6323 pg/mL (0-124) Total Protein 7.4 g/dL (6.4-8.2) Albumin 3.3 g/dL (3.4-5.0) Albumin/Globulin Ratio 0.8 (1.0-1.7) Ethyl Alcohol Level < 10 mg/dL (0-10) O2 Saturation 92 % (92-99) Arterial Blood pH 7.33 (7.35-7.45) Arterial Blood pCO2 at Patient Temp 56 mmHg (35-46) Arterial Blood pO2 at Patient Temp 66 mmHg (65-108) Arterial Blood HCO3 29 mmol/L (21-28) Arterial Blood Base Excess 2 mmol/L (-3-3) Oxyhemoglobin 88.9 % Methemoglobin 0.3 % (0.0-1.9) Carbon Monoxide, Quantitative 2.7 % (0.0-1.9) FiO2 40 Images Images AP chest x-ray HISTORY: Shortness of breath and cough. COMPARISON: Chest x-ray November 28, 2019 and priors. FINDINGS: 3-lead cardiac pacemaker. Cardiomegaly stable. Apical emphysema. Prominence of the pulmonary vasculature particularly at the right lower hilum although this is similar to prior CT imaging. The right upper lobe fissural nodular density on the prior CT study is difficult to visualize on this x-ray. There are increased perihilar lower lobe interstitial and alveolar opacities since the prior exam. Limited visualization of the right diaphragm a small right pleural effusion is not excluded. IMPRESSION: Right hilar and lower lobe interstitial and alveolar infiltrates have increased since prior x-rays from November 2019 may represent pulmonary edema or multilobar pneumonia. There may be a small right pleural effusion. See above. VTE Prophylaxis Ordered VTE Prophylaxis Devices: No VTE Pharmacological Prophylaxi: Yes Assessment/Plan Assessment/Plan Severe CHF Exacerbation Severe COPD Exacerbation Respiratory Failure with hypoxia and hypercapnia Drug Abuse A/P: BiPAP prn, Doxycycline 100 mg, SoluMedrol 40 mg q8hr, Albuterol HFA q2hr prn, DuoNeb q4 hr prn, LAsix 20 mg PO qd, surveillance system monitor, I&O's. Echo pending. Resume home heart failure medication once stable. Consult to Cardiology and Pulmonology. Continue home Eliquis 5 mg bid. Counseled on tobacco and drug cessation. Full Code. Justifications for Admission Other Justification PENNIE GONZALEZ MD Dec 25, 2019 17:20
[2019-12-25] MEDS ORDERED: NON FORMULARY ITEM (Albuterol Sulfate (Albuterol Sulfate Neb Soln) 0.63 MG) NEB PRN (23:30)
[2019-12-25] MEDS ORDERED: IPRATRPIUM/ALBUTEROL 0.5/2.5MG 3 ML NEBU. NEB PRN (23:30)
[2019-12-25] MEDS ORDERED: ALBUTEROL SULFATE 2.5 MG/3 ML NEBU. NEB PRN ×2 (23:30→23:45)
[2019-12-25] MEDS ORDERED: 0.9 % SODIUM CHLORIDE 10 ML DISP.SYRIN. IV PRN (23:45)
[2019-12-26] VITALS (21 sets, daily range): BP systolic 97–169; BP diastolic 47–100
[2019-12-26 05:21] LABS: CHOLESTEROL/HDL RATIO 2.3
[2019-12-26] MEDS: methylPREDNISolone SOD SUCC PF 40 MG/ML VIAL. IV SCH ×3 (06:18→21:53)
[2019-12-26 07:37] LABS: BASE EXCESS ABG 2 mmol/L (-3-3); HCO3 ABG 29 mmol/L (21-28); PCO2 ABG 59 mmHg (35-46); PO2 ABG 69 mmHg (65-108); SAT O2 ABG 93 % (92-99)
[2019-12-26 07:39] LABS: FIO2 ABG 40
[2019-12-26] MEDS: APIXABAN 5 MG TABLET. PO SCH ×2 (08:41→21:52)
[2019-12-26] MEDS: DOXYCYCLINE HYCLATE 100 MG TABLET PO SCH ×2 (08:41→17:52)
[2019-12-26] MEDS: FUROSEMIDE 20 MG TABLET PO SCH (08:43)
[2019-12-26] MEDS: amLODIPine BESYLATE 10 MG TABLET PO SCH (08:43)
[2019-12-26] MEDS: NICOTINE 21MG PATCH. TD SCH (08:43)
[2019-12-26] MEDS ORDERED: ANTI-COAG MONITOR BY PHARMACY. MC PRN (08:45)
[2019-12-26] MEDS: METOPROLOL SUCC 24HR ER 25 MG TAB.ER.24H. PO SCH (08:47)
[2019-12-26] MEDS: LACTOBACILLUS RHAMNOSUS GG 1 CAPSULE. PO SCH ×2 (08:54→21:52)
[2019-12-26] MEDS ORDERED: predniSONE 20 MG TABLET PO SCH (09:00)
--- NOTE | 2019-12-26 09:25 | PDOC2 ---
CARDIOLOGY CONSULT NOTE DATE OF SERVICE: DATE: 12/26/19 TIME: 09:20 CHIEF COMPLAINT: Shortness of breath HPI: Patient is a 64-year-old male who comes into the hospital in the setting of worsening respiratory failure. He unfortunately has history of polysubstance abuse. In the setting after smoking crack cocaine he began to develop respiratory distress. He has been admitted and has been initiated on BiPAP therapy. He has a longstanding history of nonischemic cardiomyopathy status post biventricular pacemaker for a left bundle branch block. He also has underlying history of atrial fibrillation. PMHX: 1. Nonischemic cardiomyopathy, status post by V ICD 2. Hypertension 3. Atrial fibrillation, paroxysmal on anticoagulation 4. Polysubstance abuse SOCHX: As noted above FAMHX: Noncontributory CURRENT MEDS: Current Medications Medications (Trade) Dose Ordered Sig/Dex Route PRN Reason Start Time Stop Time Status Last Admin Dose Admin Albuterol/ Ipratropium (Duoneb) 3 ml 1X ONCE NEB 12/25/19 11:00 12/25/19 11:03 DC 12/25/19 11:32 Dexamethasone Sodium Phosphate (Decadron) 10 mg 1X ONCE IVP 12/25/19 11:00 12/25/19 11:03 DC 12/25/19 13:33 Bumetanide (Bumex) 1 mg 1X ONCE IV 12/25/19 12:45 12/25/19 12:46 DC 12/25/19 13:33 Ondansetron HCl (Zofran) 4 mg PRN Q8HRS PRN IV NAUSEA/VOMITING 12/25/19 13:15 12/26/19 13:14 12/25/19 13:32 Methylprednisolone Sodium Succinate (SOLU-Medrol 40MG VIAL) 40 mg Q8HRS IV 12/25/19 17:00 12/26/19 06:18 Bumetanide (Bumex) 1 mg 1X ONCE IV 12/25/19 20:00 12/25/19 20:01 DC 12/25/19 19:46 Amlodipine Besylate (Norvasc) 10 mg DAILY PO 12/26/19 09:00 12/26/19 08:43 Apixaban (Eliquis) 5 mg BID PO 12/26/19 09:00 12/26/19 08:41 Furosemide (Lasix) 20 mg DAILY PO 12/26/19 09:00 12/26/19 08:43 Metoprolol Succinate (Toprol Xl) 25 mg DAILY PO 12/26/19 09:00 12/26/19 08:47 Nicotine (Nicoderm Cq 21mg) 1 patch DAILY TD 12/26/19 09:00 12/26/19 08:43 Doxycycline Hyclate (Vibra-Tab) 100 mg BIDBFRMEAL PO 12/26/19 07:30 12/31/19 07:29 12/26/19 08:41 Lactobacillus Rhamnosus (Culturelle) 1 cap BID PO 12/26/19 09:00 12/26/19 08:54 Info (Anti-Coagulation Monitoring By Pharmacy) 1 each PRN DAILY PRN MC SEE COMMENTS 12/26/19 08:45 12/26/19 08:45 ALLERGIES: Allergies Coded Allergies Type Severity Reaction Last Updated Verified levofloxacin Allergy Unknown Itching 11/24/19 Yes ROS: Negative unless otherwise mentioned above in HPI PHYSICAL EXAM: Vital Signs/I&O: Vital Signs Date Time Temp Pulse Resp B/P (MAP) Pulse Ox O2 Delivery O2 Flow Rate FiO2 12/26/19 08:47 86 139/84 12/26/19 07:25 100 BiPAP/CPAP 12/26/19 06:00 24 12/26/19 04:00 6.0 12/26/19 04:00 98.1 98.1 I & O 12/25/19 12/25/19 12/26/19 15:00 23:00 07:00 Intake Total 480 ml 400 ml Output Total 1200 ml 400 ml Balance -720 ml 0 ml Physical Exam: GEN.: Moderate distress due to dyspnea HEENT: Head is normocephalic, atraumatic NECK: Supple. LUNGS: Bilateral rhonchi HEART: RRR, S1, S2 present. Peripheral pulses intact ABDOMEN: Soft, nontender. Positive bowel sounds. EXTREMITIES: 2+ edema SKIN: No ulcerations DIAGNOSTIC TESTING: Labs reviewed notable for creatinine of 1.5 EKG reviewed and presents with sinus rhythm and PVCs and biventricular pacing ASSESSMENT: 1. Acute on chronic respiratory failure, multifactorial secondary to AECOPD, pneumonia, CHF, negative for covid. 2. Acute on chronic systolic/diastolic CHF, 3. 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 5. PAFIB; presently V pacing. 6. HTN: controlled 7. CKD3 8. Chronic Substance abuse; cocaine and marijuana use. 9. Tobaccoism 10. NSTEMI - Type 2. PLAN: 1. Continue home asa, eliquis, statin therapy 2. Continue b-marcial. 3. Hold lisinopril given acute renal injury, continue amlodipine 4. IV diuresis for decompensation. 5. Supportive care for type 2 NSTEMI. 6. Consider outpt echocardiogram Supportive care. Thanks BRANNON TRIPP MD Dec 26, 2019 09:25
--- NOTE | 2019-12-26 09:35 | PDOC ---
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 Plan: Continue to provide supportive measures May continue aspirin Eliquis and statin therapy Continue beta-marcial Continue amlodipine but hold lisinopril Supportive care for demand ischemia secondary to cocaine abuse History of Present Illness History of Present Illness 12/26/2019 Patient laying in bed in no acute distress. Patient denies any chest pain or shortness of breath has been reported We will follow recommendations for close welted No longer requiring BiPAP at the present time Hopefully move to a regular floor today Vitals Vitals Vital Signs Date Time Temp Pulse Resp B/P (MAP) Pulse Ox O2 Delivery O2 Flow Rate FiO2 12/26/19 08:47 86 139/84 12/26/19 07:25 100 BiPAP/CPAP 12/26/19 06:00 24 12/26/19 04:00 6.0 12/26/19 04:00 98.1 98.1 Physical Exam General: Alert, Oriented X3, Cooperative, mild distress Lungs: Clear, Other Abdomen: Normal bowel sounds, Soft, No tenderness Extremities: Other (2+ bilateral leg edema) Skin: No breakdown, No significant lesion Labs LABS Laboratory Tests Test 12/25/19 10:55 12/25/19 13:08 12/25/19 16:30 12/25/19 19:45 White Blood Count 6.7 x10^3/uL (4.0-11.0) Red Blood Count 4.12 x10^6/uL (4.30-5.70) Hemoglobin 12.4 g/dL (13.0-17.5) Hematocrit 38.4 % (39.0-53.0) Mean Corpuscular Volume 93 fL (79-100) Mean Corpuscular Hemoglobin 30 pg (25-35) Mean Corpuscular Hemoglobin Concent 32 g/dL (31-37) Red Cell Distribution Width 16.3 % (11.5-14.5) Platelet Count 124 x10^3/uL (140-400) Neutrophils (%) (Auto) 75 % (31-73) Lymphocytes (%) (Auto) 11 % (24-48) Monocytes (%) (Auto) 11 % (0-9) Eosinophils (%) (Auto) 2 % (0-3) Basophils (%) (Auto) 1 % (0-3) Neutrophils # (Auto) 5.0 x10^3/uL (1.8-7.7) Lymphocytes # (Auto) 0.7 x10^3/uL (1.0-4.8) Monocytes # (Auto) 0.8 x10^3/uL (0.0-1.1) Eosinophils # (Auto) 0.1 x10^3/uL (0.0-0.7) Basophils # (Auto) 0.1 x10^3/uL (0.0-0.2) Prothrombin Time 14.2 SEC (11.7-14.0) Prothromb Time International Ratio 1.1 (0.8-1.1) Activated Partial Thromboplast Time 30 SEC (24-38) Sodium Level 140 mmol/L (136-145) Potassium Level 4.0 mmol/L (3.5-5.1) Chloride Level 101 mmol/L (98-107) Carbon Dioxide Level 33 mmol/L (21-32) Anion Gap 6 (6-14) Blood Urea Nitrogen 17 mg/dL (8-26) Creatinine 1.5 mg/dL (0.7-1.3) Estimated GFR (Cockcroft-Gault) 57.2 BUN/Creatinine Ratio 11 (6-20) Glucose Level 91 mg/dL (70-99) Lactic Acid Level 0.8 mmol/L (0.4-2.0) Calcium Level 9.7 mg/dL (8.5-10.1) Total Bilirubin 1.3 mg/dL (0.2-1.0) Aspartate Amino Transf (AST/SGOT) 14 U/L (15-37) Alanine Aminotransferase (ALT/SGPT) 15 U/L (16-63) Alkaline Phosphatase 70 U/L (46-116) Creatine Kinase 99 U/L (39-308) Creatine Kinase MB (Mass) 2.0 ng/mL (0.0-3.6) Creatine Kinase MB Relative Index 2.0 % (0-4) Troponin I Quantitative 0.070 ng/mL (0.000-0.055) 0.057 ng/mL (0.000-0.055) 0.056 ng/mL (0.000-0.055) AW-Iws-Y-Type Natriuretic Peptide 6323 pg/mL (0-124) Total Protein 7.4 g/dL (6.4-8.2) Albumin 3.3 g/dL (3.4-5.0) Albumin/Globulin Ratio 0.8 (1.0-1.7) Ethyl Alcohol Level < 10 mg/dL (0-10) O2 Saturation 92 % (92-99) Arterial Blood pH 7.33 (7.35-7.45) Arterial Blood pCO2 at Patient Temp 56 mmHg (35-46) Arterial Blood pO2 at Patient Temp 66 mmHg (65-108) Arterial Blood HCO3 29 mmol/L (21-28) Arterial Blood Base Excess 2 mmol/L (-3-3) Oxyhemoglobin 88.9 % Methemoglobin 0.3 % (0.0-1.9) Carbon Monoxide, Quantitative 2.7 % (0.0-1.9) FiO2 40 Test 12/25/19 21:33 12/26/19 04:30 12/26/19 07:25 Glucose (Fingerstick) 208 mg/dL (70-99) Triglycerides Level 34 mg/dL (0-150) Cholesterol Level 156 mg/dL (0-200) LDL Cholesterol, Calculated 82 mg/dL (0-100) VLDL Cholesterol, Calculated 7 mg/dL (0-40) Non-HDL Cholesterol Calculated 89 mg/dL (0-129) HDL Cholesterol 67 mg/dL (40-60) Cholesterol/HDL Ratio 2.3 O2 Saturation 93 % (92-99) Arterial Blood pH 7.31 (7.35-7.45) Arterial Blood pCO2 at Patient Temp 59 mmHg (35-46) Arterial Blood pO2 at Patient Temp 69 mmHg (65-108) Arterial Blood HCO3 29 mmol/L (21-28) Arterial Blood Base Excess 2 mmol/L (-3-3) FiO2 40 Assessment and Plan Assessmemt and Plan Problems Medical Problems: (1) Acute on chronic combined systolic and diastolic heart failure Status: Acute (2) Acute respiratory failure with hypoxia Status: Acute (3) CHF exacerbation Status: Acute (4) Suspected 2019 novel coronavirus infection Status: Acute Comment Review of Relevant I have reviewed the following items rishi (where applicable) has been applied. Labs Laboratory Tests Test 12/25/19 10:55 12/25/19 13:08 12/25/19 16:30 12/25/19 19:45 White Blood Count 6.7 x10^3/uL (4.0-11.0) Red Blood Count 4.12 x10^6/uL (4.30-5.70) Hemoglobin 12.4 g/dL (13.0-17.5) Hematocrit 38.4 % (39.0-53.0) Mean Corpuscular Volume 93 fL (79-100) Mean Corpuscular Hemoglobin 30 pg (25-35) Mean Corpuscular Hemoglobin Concent 32 g/dL (31-37) Red Cell Distribution Width 16.3 % (11.5-14.5) Platelet Count 124 x10^3/uL (140-400) Neutrophils (%) (Auto) 75 % (31-73) Lymphocytes (%) (Auto) 11 % (24-48) Monocytes (%) (Auto) 11 % (0-9) Eosinophils (%) (Auto) 2 % (0-3) Basophils (%) (Auto) 1 % (0-3) Neutrophils # (Auto) 5.0 x10^3/uL (1.8-7.7) Lymphocytes # (Auto) 0.7 x10^3/uL (1.0-4.8) Monocytes # (Auto) 0.8 x10^3/uL (0.0-1.1) Eosinophils # (Auto) 0.1 x10^3/uL (0.0-0.7) Basophils # (Auto) 0.1 x10^3/uL (0.0-0.2) Prothrombin Time 14.2 SEC (11.7-14.0) Prothromb Time International Ratio 1.1 (0.8-1.1) Activated Partial Thromboplast Time 30 SEC (24-38) Sodium Level 140 mmol/L (136-145) Potassium Level 4.0 mmol/L (3.5-5.1) Chloride Level 101 mmol/L (98-107) Carbon Dioxide Level 33 mmol/L (21-32) Anion Gap 6 (6-14) Blood Urea Nitrogen 17 mg/dL (8-26) Creatinine 1.5 mg/dL (0.7-1.3) Estimated GFR (Cockcroft-Gault) 57.2 BUN/Creatinine Ratio 11 (6-20) Glucose Level 91 mg/dL (70-99) Lactic Acid Level 0.8 mmol/L (0.4-2.0) Calcium Level 9.7 mg/dL (8.5-10.1) Total Bilirubin 1.3 mg/dL (0.2-1.0) Aspartate Amino Transf (AST/SGOT) 14 U/L (15-37) Alanine Aminotransferase (ALT/SGPT) 15 U/L (16-63) Alkaline Phosphatase 70 U/L (46-116) Creatine Kinase 99 U/L (39-308) Creatine Kinase MB (Mass) 2.0 ng/mL (0.0-3.6) Creatine Kinase MB Relative Index 2.0 % (0-4) Troponin I Quantitative 0.070 ng/mL (0.000-0.055) 0.057 ng/mL (0.000-0.055) 0.056 ng/mL (0.000-0.055) AQ-Vzh-M-Type Natriuretic Peptide 6323 pg/mL (0-124) Total Protein 7.4 g/dL (6.4-8.2) Albumin 3.3 g/dL (3.4-5.0) Albumin/Globulin Ratio 0.8 (1.0-1.7) Ethyl Alcohol Level < 10 mg/dL (0-10) O2 Saturation 92 % (92-99) Arterial Blood pH 7.33 (7.35-7.45) Arterial Blood pCO2 at Patient Temp 56 mmHg (35-46) Arterial Blood pO2 at Patient Temp 66 mmHg (65-108) Arterial Blood HCO3 29 mmol/L (21-28) Arterial Blood Base Excess 2 mmol/L (-3-3) Oxyhemoglobin 88.9 % Methemoglobin 0.3 % (0.0-1.9) Carbon Monoxide, Quantitative 2.7 % (0.0-1.9) FiO2 40 Test 12/25/19 21:33 12/26/19 04:30 12/26/19 07:25 Glucose (Fingerstick) 208 mg/dL (70-99) Triglycerides Level 34 mg/dL (0-150) Cholesterol Level 156 mg/dL (0-200) LDL Cholesterol, Calculated 82 mg/dL (0-100) VLDL Cholesterol, Calculated 7 mg/dL (0-40) Non-HDL Cholesterol Calculated 89 mg/dL (0-129) HDL Cholesterol 67 mg/dL (40-60) Cholesterol/HDL Ratio 2.3 O2 Saturation 93 % (92-99) Arterial Blood pH 7.31 (7.35-7.45) Arterial Blood pCO2 at Patient Temp 59 mmHg (35-46) Arterial Blood pO2 at Patient Temp 69 mmHg (65-108) Arterial Blood HCO3 29 mmol/L (21-28) Arterial Blood Base Excess 2 mmol/L (-3-3) FiO2 40 Laboratory Tests Test 12/25/19 10:55 12/25/19 13:08 12/25/19 16:30 12/25/19 19:45 White Blood Count 6.7 x10^3/uL (4.0-11.0) Red Blood Count 4.12 x10^6/uL (4.30-5.70) Hemoglobin 12.4 g/dL (13.0-17.5) Hematocrit 38.4 % (39.0-53.0) Mean Corpuscular Volume 93 fL (79-100) Mean Corpuscular Hemoglobin 30 pg (25-35) Mean Corpuscular Hemoglobin Concent 32 g/dL (31-37) Red Cell Distribution Width 16.3 % (11.5-14.5) Platelet Count 124 x10^3/uL (140-400) Neutrophils (%) (Auto) 75 % (31-73) Lymphocytes (%) (Auto) 11 % (24-48) Monocytes (%) (Auto) 11 % (0-9) Eosinophils (%) (Auto) 2 % (0-3) Basophils (%) (Auto) 1 % (0-3) Neutrophils # (Auto) 5.0 x10^3/uL (1.8-7.7) Lymphocytes # (Auto) 0.7 x10^3/uL (1.0-4.8) Monocytes # (Auto) 0.8 x10^3/uL (0.0-1.1) Eosinophils # (Auto) 0.1 x10^3/uL (0.0-0.7) Basophils # (Auto) 0.1 x10^3/uL (0.0-0.2) Prothrombin Time 14.2 SEC (11.7-14.0) Prothromb Time International Ratio 1.1 (0.8-1.1) Activated Partial Thromboplast Time 30 SEC (24-38) Sodium Level 140 mmol/L (136-145) Potassium Level 4.0 mmol/L (3.5-5.1) Chloride Level 101 mmol/L (98-107) Carbon Dioxide Level 33 mmol/L (21-32) Anion Gap 6 (6-14) Blood Urea Nitrogen 17 mg/dL (8-26) Creatinine 1.5 mg/dL (0.7-1.3) Estimated GFR (Cockcroft-Gault) 57.2 BUN/Creatinine Ratio 11 (6-20) Glucose Level 91 mg/dL (70-99) Lactic Acid Level 0.8 mmol/L (0.4-2.0) Calcium Level 9.7 mg/dL (8.5-10.1) Total Bilirubin 1.3 mg/dL (0.2-1.0) Aspartate Amino Transf (AST/SGOT) 14 U/L (15-37) Alanine Aminotransferase (ALT/SGPT) 15 U/L (16-63) Alkaline Phosphatase 70 U/L (46-116) Creatine Kinase 99 U/L (39-308) Creatine Kinase MB (Mass) 2.0 ng/mL (0.0-3.6) Creatine Kinase MB Relative Index 2.0 % (0-4) Troponin I Quantitative 0.070 ng/mL (0.000-0.055) 0.057 ng/mL (0.000-0.055) 0.056 ng/mL (0.000-0.055) KF-Hpt-H-Type Natriuretic Peptide 6323 pg/mL (0-124) Total Protein 7.4 g/dL (6.4-8.2) Albumin 3.3 g/dL (3.4-5.0) Albumin/Globulin Ratio 0.8 (1.0-1.7) Ethyl Alcohol Level < 10 mg/dL (0-10) O2 Saturation 92 % (92-99) Arterial Blood pH 7.33 (7.35-7.45) Arterial Blood pCO2 at Patient Temp 56 mmHg (35-46) Arterial Blood pO2 at Patient Temp 66 mmHg (65-108) Arterial Blood HCO3 29 mmol/L (21-28) Arterial Blood Base Excess 2 mmol/L (-3-3) Oxyhemoglobin 88.9 % Methemoglobin 0.3 % (0.0-1.9) Carbon Monoxide, Quantitative 2.7 % (0.0-1.9) FiO2 40 Test 12/25/19 21:33 12/26/19 04:30 12/26/19 07:25 Glucose (Fingerstick) 208 mg/dL (70-99) Triglycerides Level 34 mg/dL (0-150) Cholesterol Level 156 mg/dL (0-200) LDL Cholesterol, Calculated 82 mg/dL (0-100) VLDL Cholesterol, Calculated 7 mg/dL (0-40) Non-HDL Cholesterol Calculated 89 mg/dL (0-129) HDL Cholesterol 67 mg/dL (40-60) Cholesterol/HDL Ratio 2.3 O2 Saturation 93 % (92-99) Arterial Blood pH 7.31 (7.35-7.45) Arterial Blood pCO2 at Patient Temp 59 mmHg (35-46) Arterial Blood pO2 at Patient Temp 69 mmHg (65-108) Arterial Blood HCO3 29 mmol/L (21-28) Arterial Blood Base Excess 2 mmol/L (-3-3) FiO2 40 Medications Current Medications Albuterol/ Ipratropium (Duoneb) 3 ml 1X ONCE NEB Last administered on 12/25/19at 11:32; Start 12/25/19 at 11:00; Stop 12/25/19 at 11:03; Status DC Dexamethasone Sodium Phosphate (Decadron) 10 mg 1X ONCE IVP Last administered on 12/25/19at 13:33; Start 12/25/19 at 11:00; Stop 12/25/19 at 11:03; Status DC Bumetanide (Bumex) 1 mg 1X ONCE IV Last administered on 12/25/19at 13:33; Start 12/25/19 at 12:45; Stop 12/25/19 at 12:46; Status DC Ondansetron HCl (Zofran) 4 mg PRN Q8HRS PRN IV NAUSEA/VOMITING Last administered on 12/25/19at 13:32; Start 12/25/19 at 13:15; Stop 12/26/19 at 13:14 Albuterol/ Ipratropium (Duoneb) 3 ml RTQID NEB ; Start 12/25/19 at 16:00; Stop 12/25/19 at 14:14; Status DC Albuterol/ Ipratropium (Duoneb) 3 ml RTQID NEB ; Start 12/26/19 at 16:00; Stop 12/27/19 at 15:59 Methylprednisolone Sodium Succinate (SOLU-Medrol 40MG VIAL) 40 mg Q8HRS IV Last administered on 12/26/19at 06:18; Start 12/25/19 at 17:00 Bumetanide (Bumex) 1 mg 1X ONCE IV Last administered on 12/25/19at 19:46; Start 12/25/19 at 20:00; Stop 12/25/19 at 20:01; Status DC Albuterol Sulfate (Ventolin Neb Soln) 2.5 mg PRN Q2HR PRN NEB SHORTNESS OF BREATH; Start 12/25/19 at 23:30; Stop 12/26/19 at 00:40; Status DC Amlodipine Besylate (Norvasc) 10 mg DAILY PO Last administered on 12/26/19at 08:43; Start 12/26/19 at 09:00 Apixaban (Eliquis) 5 mg BID PO Last administered on 12/26/19at 08:41; Start 12/26/19 at 09:00 Furosemide (Lasix) 20 mg DAILY PO Last administered on 12/26/19at 08:43; Start 12/26/19 at 09:00 Lisinopril (Prinivil) 20 mg DAILY PO ; Start 12/26/19 at 09:00 Metoprolol Succinate (Toprol Xl) 25 mg DAILY PO Last administered on 12/26/19at 08:47; Start 12/26/19 at 09:00 Simvastatin (Zocor) 20 mg HS PO ; Start 12/26/19 at 21:00 Non-Formulary Medication (Albuterol Sulfate (Albuterol Sulfate Neb Soln)) 0.63 mg PRN Q4HRS PRN NEB SHORTNESS OF BREATH; Start 12/25/19 at 23:30; Status UNV Albuterol Sulfate (Ventolin Neb Soln) 2.5 mg PRN Q4HRS PRN NEB SHORTNESS OF BREATH; Start 12/25/19 at 23:45 Albuterol/ Ipratropium (Duoneb) 3 ml Q4HRS W/A PRN NEB WHEEZING; Start 12/25/19 at 23:30; Status UNV Nicotine (Nicoderm Cq 21mg) 1 patch DAILY TD Last administered on 12/26/19at 08:43; Start 12/26/19 at 09:00 Doxycycline Hyclate (Vibra-Tab) 100 mg BIDBFRMEAL PO Last administered on 12/26/19at 08:41; Start 12/26/19 at 07:30; Stop 12/31/19 at 07:29 Prednisone (Prednisone) 40 mg DAILY PO ; Start 12/26/19 at 09:00; Stop 12/26/19 at 00:07; Status DC Sodium Chloride (Normal Saline Flush) 3 ml QSHIFT PRN IV AFTER MEDS AND BLOOD DRAWS; Start 12/25/19 at 23:45 Lactobacillus Rhamnosus (Culturelle) 1 cap BID PO Last administered on 12/26/19at 08:54; Start 12/26/19 at 09:00 Info (Anti-Coagulation Monitoring By Pharmacy) 1 each PRN DAILY PRN MC SEE COMMENTS Last administered on 12/26/19at 08:45; Start 12/26/19 at 08:45 Active Scripts Active Culturelle (Lactobacillus Rhamnosus Gg) 1 Each Cap.sprink 1 Cap PO BID 30 Days Doxycycline Hyclate 100 Mg Tablet 100 Mg PO BID 10 Days Culturelle (Lactobacillus Rhamnosus Gg) 1 Each Cap.sprink 1 Cap PO BID 10 Days Lasix (Furosemide) 20 Mg Tablet 1 Tab PO DAILY 30 Days Lisinopril 40 Mg Tablet 20 Mg PO DAILY 30 Days Proair Hfa (Albuterol Sulfate) 8.5 Gm Hfa.aer.ad 2.5 Mg NEB PRN Q2HR PRN 30 Days Duoneb 0.5-3(2.5) Mg/3 Ml (Albuterol/Ipratropium) 3 Ml Ampul.neb 3 Ml NEB Q4HRS 30 Days Albuterol Sulfate Neb Soln (Albuterol Sulfate) 0.63 Mg/3 Ml Vial.neb 0.63 Mg NEB PRN Q4HRS PRN 30 Days NEEDED Reported Eliquis (Apixaban) 5 Mg Tablet 5 Mg PO BID Toprol Xl (Metoprolol Succinate) 25 Mg Tab.er.24h 1 Tab PO DAILY 30 Days Zocor (Simvastatin) 20 Mg Tablet 20 Mg PO HS NEXT DOSE DUE TONIGHT AT BEDTIME Amlodipine Besylate 10 Mg Tablet 10 Mg PO DAILY NEXT DOSE DUE IN AM Potassium Chloride 10 Meq Tab.er.prt 20 Meq PO DAILY NEXT DOSE DUE IN AM Vitals/I & O Vital Sign - Last 24 Hours 12/25/19 12/25/19 12/25/19 12/25/19 11:00 11:07 11:13 11:30 Temp 99.0 99.0 Pulse 76 67 64 Resp 18 26 B/P (MAP) 173/106 (128) 163/106 (125) 128/80 (96) Pulse Ox 91 93 O2 Delivery Room Air BiPAP/CPAP BiPAP/CPAP Room Air 12/25/19 12/25/19 12/25/19 12/25/19 11:34 12:00 12:30 13:00 Pulse 68 70 64 B/P (MAP) 143/78 (99) 130/73 (92) 132/77 (95) Pulse Ox 96 O2 Delivery BiPAP/CPAP Room Air Room Air Room Air 12/25/19 12/25/19 12/25/19 12/25/19 13:04 13:30 16:00 16:15 Pulse 62 76 Resp 17 B/P (MAP) 138/83 (101) 149/95 (113) Pulse Ox 96 98 O2 Delivery BiPAP/CPAP Room Air Bi-pap BiPAP/CPAP 12/25/19 12/25/19 12/25/19 12/25/19 16:20 16:30 16:45 17:00 Temp 98.3 98.3 Pulse 74 72 70 Resp 28 22 22 B/P (MAP) 145/87 (106) 138/92 (107) 153/93 (113) Pulse Ox 98 97 98 97 O2 Delivery BiPAP/CPAP BiPAP/CPAP BiPAP/CPAP BiPAP/CPAP 12/25/19 12/25/19 12/25/19 12/25/19 18:00 19:00 20:00 20:00 Temp 97.7 97.7 Pulse 83 72 68 Resp 25 26 20 B/P (MAP) 135/85 (102) 100/58 (72) 122/77 (92) Pulse Ox 96 95 91 O2 Delivery Nasal Cannula Nasal Cannula BiPAP/CPAP O2 Flow Rate 6.0 6.0 6.0 12/25/19 12/25/19 12/25/19 12/25/19 20:00 20:24 21:00 22:00 Pulse 66 63 Resp 20 20 B/P (MAP) 121/75 (90) 105/66 (79) Pulse Ox 94 97 96 O2 Delivery Bi-pap BiPAP/CPAP BiPAP/CPAP BiPAP/CPAP 12/25/19 12/26/19 12/26/19 12/26/19 23:00 00:00 00:00 00:00 Temp 97.4 97.4 Pulse 70 66 Resp 20 22 B/P (MAP) 132/82 (99) 129/82 (98) Pulse Ox 96 100 O2 Delivery BiPAP/CPAP Bi-pap BiPAP/CPAP O2 Flow Rate 6.0 12/26/19 12/26/19 12/26/19 12/26/19 00:15 01:00 02:00 03:00 Pulse 74 67 68 Resp 18 20 22 B/P (MAP) 113/72 (86) 143/85 (104) 119/71 (87) Pulse Ox 91 91 98 97 O2 Delivery BiPAP/CPAP BiPAP/CPAP BiPAP/CPAP BiPAP/CPAP 12/26/19 12/26/19 12/26/19 12/26/19 04:00 04:00 04:00 04:40 Temp 98.1 98.1 Pulse 73 Resp 22 B/P (MAP) 142/91 (108) Pulse Ox 97 98 O2 Delivery Bi-pap BiPAP/CPAP BiPAP/CPAP O2 Flow Rate 6.0 12/26/19 12/26/19 12/26/19 12/26/19 05:00 06:00 07:25 08:43 Pulse 64 62 88 Resp 20 24 B/P (MAP) 126/74 (91) 114/72 (86) 139/97 Pulse Ox 93 97 100 O2 Delivery BiPAP/CPAP BiPAP/CPAP BiPAP/CPAP 12/26/19 08:47 Pulse 86 B/P (MAP) 139/84 Intake and Output 12/25/19 12/25/19 12/26/19 15:00 23:00 07:00 Intake Total 480 ml 400 ml Output Total 1200 ml 400 ml Balance -720 ml 0 ml Justicifation of Admission Dx: Justifications for Admission: Justification of Admission Dx: Yes Respiratory Failure: Severe Resp Distress HIREN ZHOU MD Dec 26, 2019 09:35
[2019-12-26] MEDS ORDERED: FUROSEMIDE 40 MG/4 ML VIAL. IVP ONE (10:00)
--- NOTE | 2019-12-26 10:22 | CONS ---
DATE OF CONSULTATION: PULMONARY CONSULTATION ATTENDING PHYSICIAN: Dr. Javon Rahman. REASON FOR CONSULTATION: Respiratory failure. HISTORY OF PRESENT ILLNESS: The patient is very well known to us. He is a 64-year-old male who has history of chronic hypoxic respiratory failure, on home oxygen at 6 liters. He has a history of COPD, history of cardiomyopathy with an EF of 40% and recurrent admissions for congestive heart failure. He is noncompliant. He continues to smoke cigarettes and continues to do crack cocaine. He was brought into the hospital with complaint of shortness of breath. He had a mild cough. No fever, no chills, no chest pains. No increased lower extremity edema. Chest x-ray was reviewed and it showed more increase in interstitial markings consistent with CHF. There is a small right pleural effusion. The patient's arterial blood gases were abnormal on admission. The pH of 7.33, pCO2 of 56 and a pO2 of 66 on 40% FiO2. The pH of 7.31, pCO2 of 59 and pO2 of 69 on 40% FiO2 this morning. He is awake, following commands. I have been asked to see him for further evaluation. PAST MEDICAL HISTORY: History of congestive heart failure, history of cardiomyopathy with an EF of 40%, history of COPD, history of ongoing tobaccoism and cocaine use, hyperlipidemia and chronic renal insufficiency. PAST SURGICAL HISTORY: Appendectomy and hernia repair. FAMILY HISTORY: Coronary artery disease. SOCIAL HISTORY: Smoker 1 pack per day for 30+ years. Continues to do alcohol, marijuana and cocaine. REVIEW OF SYSTEMS: Ten-point system obtained. Pertinent positives discussed in my history of present illness, otherwise noncontributory. All systems that were negative were reviewed as well. ALLERGIES: LEVAQUIN. MEDICATIONS: Reviewed as listed in the MRAD including furosemide and IV Solu-Medrol and doxycycline. PHYSICAL EXAMINATION: On examination, which was done visually due to COVID suspicion. He is in no obvious respiratory distress. He is currently on nasal cannula. Saturations are in the mid 90s. He is afebrile. Pulse ox 97%. He is in no obvious respiratory distress. No paradoxical breathing. Visual exam done. No rash or edema. LABORATORY DATA: Reviewed. ABGs as discussed in my history of present illness. His BUN is 17, creatinine 1.5. ProBNP 6323. Troponin is 0.07. Albumin is 3.3. Urine drug screen negative for alcohol. Other drugs were not checked. White cell count 6.7. IMPRESSION: 1. Acute on chronic hypoxic and hypercapnic respiratory failure secondary to acute on chronic systolic heart failure in addition to acute exacerbation of chronic obstructive pulmonary disease. 2. The patient with ongoing tobaccoism and cocaine use. The congestive heart failure may have been triggered by cocaine as well. 3. Underlying chronic obstructive pulmonary disease, on home oxygen at 6 liters on a 24-hour basis. 4. Cardiomyopathy with an ejection fraction of 40%. 5. Chronic mild chronic kidney disease. 6. Mildly increased troponin level consistent with congestive heart failure. RECOMMENDATIONS: 1. Continue present nasal cannula with baseline at 6 liters and BiPAP at bedtime. 2. Aggressive diuresis. 3. IV Solu-Medrol. 4. Eliquis per PCP. 5. Empiric antibiotics. 6. Nebulizers. 7. Rule out COVID. 8. He was again counseled regarding cocaine cessation and tobacco cessation, but he is noncompliant. 9. We will follow along with you. Discussed with RN and RT. Labs are reviewed. Imaging studies reviewed. Critical care time 36 minutes. SHARON ROJAS MD DR: MAYCO/yumiko JOB#: [id number] / [id number]
[2019-12-26] MEDS: LISINOPRIL 20 MG TABLET PO SCH (13:56)
[2019-12-26] MEDS: IPRATRPIUM/ALBUTEROL 0.5/2.5MG 3 ML NEBU. NEB SCH ×2 (16:00→20:00)
--- NOTE | 2019-12-26 16:43 | NUR ---
Covid pending. SOA improved ,medrol helpful. NC placed after ABGs resulted. Lung núñez clear anterior and diminished bases bilaterally. Intermittent productive cough.
[2019-12-26] MEDS ORDERED: SIMVASTATIN 20 MG TABLET PO SCH (21:00)
[2019-12-27] VITALS (15 sets, daily range): BP systolic 114–157; BP diastolic 68–104
[2019-12-27] MEDS: methylPREDNISolone SOD SUCC PF 40 MG/ML VIAL. IV SCH ×2 (07:01→14:00)
[2019-12-27] MEDS: NICOTINE 21MG PATCH. TD SCH (08:08)
[2019-12-27] MEDS: amLODIPine BESYLATE 10 MG TABLET PO SCH (08:08)
[2019-12-27] MEDS: METOPROLOL SUCC 24HR ER 25 MG TAB.ER.24H. PO SCH (08:08)
[2019-12-27] MEDS: LISINOPRIL 20 MG TABLET PO SCH (08:08)
[2019-12-27] MEDS: DOXYCYCLINE HYCLATE 100 MG TABLET PO SCH (08:08)
[2019-12-27] MEDS: LACTOBACILLUS RHAMNOSUS GG 1 CAPSULE. PO SCH (08:08)
[2019-12-27] MEDS: APIXABAN 5 MG TABLET. PO SCH (08:09)
[2019-12-27] MEDS: FUROSEMIDE 20 MG TABLET PO SCH (08:09)
[2019-12-27] MEDS: IPRATRPIUM/ALBUTEROL 0.5/2.5MG 3 ML NEBU. NEB SCH ×2 (08:19→12:54)
--- NOTE | 2019-12-27 08:46 | PDOC ---
PULMONARY PROGRESS NOTES DATE: 12/27/19 TIME: 08:46 Subjective Patient feels better no increasing shortness of air Vitals Vital Signs Date Time Temp Pulse Resp B/P (MAP) Pulse Ox O2 Delivery O2 Flow Rate FiO2 12/27/19 08:21 95 Nasal Cannula 3.0 12/27/19 08:08 77 140/97 12/27/19 08:00 16 12/27/19 07:00 98.8 98.8 ROS: No Nausea, No Chest Pain, No Abdominal Pain, No Increase Cough General: Alert, Oriented X4, No acute distress HEENT: Other Lungs: Clear Cardiovascular: S1, S2 Abdomen: Soft, Non-tender, Other Extremities: Other Labs Laboratory Tests Test 12/25/19 10:55 12/25/19 11:15 12/25/19 13:08 12/25/19 16:30 White Blood Count 6.7 x10^3/uL (4.0-11.0) Red Blood Count 4.12 x10^6/uL (4.30-5.70) Hemoglobin 12.4 g/dL (13.0-17.5) Hematocrit 38.4 % (39.0-53.0) Mean Corpuscular Volume 93 fL (79-100) Mean Corpuscular Hemoglobin 30 pg (25-35) Mean Corpuscular Hemoglobin Concent 32 g/dL (31-37) Red Cell Distribution Width 16.3 % (11.5-14.5) Platelet Count 124 x10^3/uL (140-400) Neutrophils (%) (Auto) 75 % (31-73) Lymphocytes (%) (Auto) 11 % (24-48) Monocytes (%) (Auto) 11 % (0-9) Eosinophils (%) (Auto) 2 % (0-3) Basophils (%) (Auto) 1 % (0-3) Neutrophils # (Auto) 5.0 x10^3/uL (1.8-7.7) Lymphocytes # (Auto) 0.7 x10^3/uL (1.0-4.8) Monocytes # (Auto) 0.8 x10^3/uL (0.0-1.1) Eosinophils # (Auto) 0.1 x10^3/uL (0.0-0.7) Basophils # (Auto) 0.1 x10^3/uL (0.0-0.2) Prothrombin Time 14.2 SEC (11.7-14.0) Prothromb Time International Ratio 1.1 (0.8-1.1) Activated Partial Thromboplast Time 30 SEC (24-38) Sodium Level 140 mmol/L (136-145) Potassium Level 4.0 mmol/L (3.5-5.1) Chloride Level 101 mmol/L (98-107) Carbon Dioxide Level 33 mmol/L (21-32) Anion Gap 6 (6-14) Blood Urea Nitrogen 17 mg/dL (8-26) Creatinine 1.5 mg/dL (0.7-1.3) Estimated GFR (Cockcroft-Gault) 57.2 BUN/Creatinine Ratio 11 (6-20) Glucose Level 91 mg/dL (70-99) Lactic Acid Level 0.8 mmol/L (0.4-2.0) Calcium Level 9.7 mg/dL (8.5-10.1) Total Bilirubin 1.3 mg/dL (0.2-1.0) Aspartate Amino Transf (AST/SGOT) 14 U/L (15-37) Alanine Aminotransferase (ALT/SGPT) 15 U/L (16-63) Alkaline Phosphatase 70 U/L (46-116) Creatine Kinase 99 U/L (39-308) Creatine Kinase MB (Mass) 2.0 ng/mL (0.0-3.6) Creatine Kinase MB Relative Index 2.0 % (0-4) Troponin I Quantitative 0.070 ng/mL (0.000-0.055) 0.057 ng/mL (0.000-0.055) SK-Xid-I-Type Natriuretic Peptide 6323 pg/mL (0-124) Total Protein 7.4 g/dL (6.4-8.2) Albumin 3.3 g/dL (3.4-5.0) Albumin/Globulin Ratio 0.8 (1.0-1.7) Ethyl Alcohol Level < 10 mg/dL (0-10) Coronavirus (PCR) Not detected (Not Detected) O2 Saturation 92 % (92-99) Arterial Blood pH 7.33 (7.35-7.45) Arterial Blood pCO2 at Patient Temp 56 mmHg (35-46) Arterial Blood pO2 at Patient Temp 66 mmHg (65-108) Arterial Blood HCO3 29 mmol/L (21-28) Arterial Blood Base Excess 2 mmol/L (-3-3) Oxyhemoglobin 88.9 % Methemoglobin 0.3 % (0.0-1.9) Carbon Monoxide, Quantitative 2.7 % (0.0-1.9) FiO2 40 Test 12/25/19 19:45 12/25/19 21:33 12/26/19 04:30 12/26/19 07:25 Troponin I Quantitative 0.056 ng/mL (0.000-0.055) Glucose (Fingerstick) 208 mg/dL (70-99) Triglycerides Level 34 mg/dL (0-150) Cholesterol Level 156 mg/dL (0-200) LDL Cholesterol, Calculated 82 mg/dL (0-100) VLDL Cholesterol, Calculated 7 mg/dL (0-40) Non-HDL Cholesterol Calculated 89 mg/dL (0-129) HDL Cholesterol 67 mg/dL (40-60) Cholesterol/HDL Ratio 2.3 O2 Saturation 93 % (92-99) Arterial Blood pH 7.31 (7.35-7.45) Arterial Blood pCO2 at Patient Temp 59 mmHg (35-46) Arterial Blood pO2 at Patient Temp 69 mmHg (65-108) Arterial Blood HCO3 29 mmol/L (21-28) Arterial Blood Base Excess 2 mmol/L (-3-3) FiO2 40 Medications Active Scripts Medications Dose Route/Sig Max Daily Dose Days Date Category Dose Instructions Culturelle (Lactobacillus Rhamnosus Gg) 1 Each Cap.sprink 1 Cap PO BID 30 11/29/19 Rx Doxycycline Hyclate 100 Mg Tablet 100 Mg PO BID 10 11/29/19 Rx Culturelle (Lactobacillus Rhamnosus Gg) 1 Each Cap.sprink 1 Cap PO BID 10 09/15/19 Rx Eliquis (Apixaban) 5 Mg Tablet 5 Mg PO BID 08/02/19 Reported Toprol Xl (Metoprolol Succinate) 25 Mg Tab.er.24h 1 Tab PO DAILY 30 08/02/19 Reported Lasix (Furosemide) 20 Mg Tablet 1 Tab PO DAILY 30 05/10/19 Rx Lisinopril 40 Mg Tablet 20 Mg PO DAILY 30 05/10/19 Rx Proair Hfa (Albuterol Sulfate) 8.5 Gm Hfa.aer.ad 2.5 Mg NEB PRN Q2HR PRN 30 1/21/20 Rx Duoneb 0.5-3(2.5) Mg/3 Ml (Albuterol/Ipratropium) 3 Ml Ampul.neb 3 Ml NEB Q4HRS 30 05/09/19 Rx Albuterol Sulfate Neb Soln (Albuterol Sulfate) 0.63 Mg/3 Ml Vial.neb 0.63 Mg NEB PRN Q4HRS PRN 30 10/13/16 Rx NEEDED Zocor (Simvastatin) 20 Mg Tablet 20 Mg PO HS 10/27/14 Reported NEXT DOSE DUE TONIGHT AT BEDTIME Amlodipine Besylate 10 Mg Tablet 10 Mg PO DAILY 06/13/13 Reported NEXT DOSE DUE IN AM Potassium Chloride 10 Meq Tab.er.prt 20 Meq PO DAILY 06/13/13 Reported NEXT DOSE DUE IN AM Impression . IMPRESSION: 1. Acute on chronic hypoxic and hypercapnic respiratory failure secondary to acute on chronic systolic heart failure in addition to acute exacerbation of chronic obstructive pulmonary disease. 2. The patient with ongoing tobaccoism and cocaine use. The congestive heart failure may have been triggered by cocaine as well. 3. Underlying chronic obstructive pulmonary disease, on home oxygen at 6 liters on a 24-hour basis. 4. Cardiomyopathy with an ejection fraction of 40%. 5. Chronic mild chronic kidney disease. 6. Mildly increased troponin level consistent with congestive heart failure. Plan . Patient doing better, currently back on baseline O2 Okay to discharge today Taper prednisone Patient instructed on the importance of discontinuing all substance abuse RACHAEL GR MD Dec 27, 2019 08:46
[2019-12-27] MEDS ORDERED: PRED50TA PO (08:53)
--- NOTE | 2019-12-27 08:55 | SNU/HH DC ---
DISCHARGE WITH HOME HEALTH DISCHARGE INFORMATION: Discharge Date: Dec 27, 2019 Final Diagnosis: Problems Medical Problems: (1) Acute on chronic combined systolic and diastolic heart failure Status: Acute (2) Acute respiratory failure with hypoxia most likely exacerbated by illegal drug abuse Status: Acute (3) CHF exacerbation Status: Acute (4) ruled out 2018 novel coronavirus infection Status: Acute Condition on Discharge: Stable CODE STATUS: Code Status: Full HOME HEALTH: Face to Face: I certify this patient is under my care and that I, or a nurse practitioner or physician's assistant program manager working with me, had a face to face encounter that meets the physician face to face encounter requirements with this patient on []. Medical Complications: CHF RN For Eval/Treatment: Yes Home Health Aide For: Self-care Pt Meets Homebound Status: Limited distance walking POST DISCHARGE ORDERS: Activity Instructions for Disc: Activity as tolerated Weight Bearing Status after Di: As tolerated DIET AFTER DISCHARGE: Cardiac Wound/Incision Care: No wound care needed CHECKS AFTER DISCHARGE: Checks after discharge: Check blood press - daily, Weigh Yourself Daily TREATMENT/EQUIPMENT ORDERS: Adaptive Equipment Issued: None Discharge Respiratory Equipmen: Oxygen CERTIFICATION STATEMENT: Certification Statement: Certification Statement: Based on the above finding, I certify that this patient is confined to the home and needs intermittent correction care, physical therapy and/or speech therapy, or continues to need occupational therapy.~ This patient is under my care, and I have initiated the establishment of the plan of care.~ This patient will be followed by myself or a community physician who will periodically review the plan of care. Home Meds Active Scripts Prednisone (PREDNISONE) 50 Mg Tablet, 1 TAB PO DAILY for COPD, #5 TAB Prov:HIREN ZHOU MD 12/27/19 Lactobacillus Rhamnosus Gg (CULTURELLE) 1 Each Cap.sprink, 1 CAP PO BID for supplement for 30 Days, #60 CAP Prov:RANJITH RICHARDSON MD 11/29/19 Doxycycline Hyclate (DOXYCYCLINE HYCLATE) 100 Mg Tablet, 100 MG PO BID for pneumonia for 10 Days, #20 TAB Prov:RANJITH RICHARDSON MD 11/29/19 Lactobacillus Rhamnosus Gg (CULTURELLE) 1 Each Cap.sprink, 1 CAP PO BID for Diarrhea for 10 Days, #20 CAP Prov:GAILFECARMEN Betancourt MD 09/15/19 Furosemide (LASIX) 20 Mg Tablet, 1 TAB PO DAILY for increase of weight/ dyspnea for 30 Days, #30 TAB 0 Refills Prov:HIREN ZHOU MD 05/10/19 Lisinopril (LISINOPRIL) 40 Mg Tablet, 20 MG PO DAILY for HTN for 30 Days, #15 TAB Prov:HIREN ZHOU MD 05/10/19 Albuterol Sulfate (Proair Hfa) 8.5 Gm Hfa.aer.ad, 2.5 MG NEB PRN Q2HR PRN for SHORTNESS OF BREATH for 30 Days, #1 INHALER Prov:HIREN ZHOU MD 05/10/19 Ipratropium/Albuterol Sulfate (DUONEB 0.5-3(2.5) MG/3 ML) 3 Ml Ampul.neb, 3 ML NEB Q4HRS for COPD for 30 Days, #180 EACH Prov:HIREN ZHOU MD 05/09/19 Albuterol Sulfate (ALBUTEROL SULFATE NEB SOLN) 0.63 Mg/3 Ml Vial.neb, 0.63 MG NEB PRN Q4HRS PRN for SHORTNESS OF BREATH for 30 Days, #100 EACH 2 Refills NEEDED Prov:LOU HERNANDEZ MD 10/13/16 Reported Medications Apixaban (ELIQUIS) 5 Mg Tablet, 5 MG PO BID for blood thinner, TAB 08/02/19 Metoprolol Succinate (TOPROL XL) 25 Mg Tab.er.24h, 1 TAB PO DAILY for blood pressure for 30 Days, #30 TAB 0 Refills 08/02/19 Simvastatin (ZOCOR) 20 Mg Tablet, 20 MG PO HS for FOR CHOLESTEROL, #30 TAB 0 Refills NEXT DOSE DUE TONIGHT AT BEDTIME 10/27/14 Amlodipine Besylate (AMLODIPINE BESYLATE) 10 Mg Tablet, 10 MG PO DAILY NEXT DOSE DUE IN AM 06/13/13 Potassium Chloride (POTASSIUM CHLORIDE) 10 Meq Tab.er.prt, 20 MEQ PO DAILY NEXT DOSE DUE IN AM 06/13/13 HIREN ZHOU MD Dec 27, 2019 08:55
--- NOTE | 2019-12-27 09:00 | PDOC3 ---
Discharge Summary Visit Information Date of Admission: Dec 25, 2019 Date of Discharge: Dec 27, 2019 Admitting Diagnosis Comment: Severe CHF Exacerbation Severe COPD Exacerbation Respiratory Failure with hypoxia and hypercapnia Drug Abuse Final Diagnosis Problems Medical Problems: (1) Acute on chronic combined systolic and diastolic heart failure Status: Acute (2) Acute respiratory failure with hypoxia Status: Acute (3) CHF exacerbation secondary to crack cocaine abuse, counseling done. Status: Acute (4) ruled out 2018 novel coronavirus infection Status: Acute Brief Hospital Course Allergies Allergies Coded Allergies Type Severity Reaction Last Updated Verified levofloxacin Allergy Unknown Itching 11/24/19 Yes Vital Signs Vital Signs Date Time Temp Pulse Resp B/P (MAP) Pulse Ox O2 Delivery O2 Flow Rate FiO2 12/27/19 08:21 95 Nasal Cannula 3.0 12/27/19 08:08 77 140/97 12/27/19 08:00 16 12/27/19 07:00 98.8 98.8 Lab Results Laboratory Tests Test 12/25/19 10:55 12/25/19 11:15 12/25/19 13:08 12/25/19 16:30 White Blood Count 6.7 x10^3/uL (4.0-11.0) Red Blood Count 4.12 x10^6/uL (4.30-5.70) Hemoglobin 12.4 g/dL (13.0-17.5) Hematocrit 38.4 % (39.0-53.0) Mean Corpuscular Volume 93 fL (79-100) Mean Corpuscular Hemoglobin 30 pg (25-35) Mean Corpuscular Hemoglobin Concent 32 g/dL (31-37) Red Cell Distribution Width 16.3 % (11.5-14.5) Platelet Count 124 x10^3/uL (140-400) Neutrophils (%) (Auto) 75 % (31-73) Lymphocytes (%) (Auto) 11 % (24-48) Monocytes (%) (Auto) 11 % (0-9) Eosinophils (%) (Auto) 2 % (0-3) Basophils (%) (Auto) 1 % (0-3) Neutrophils # (Auto) 5.0 x10^3/uL (1.8-7.7) Lymphocytes # (Auto) 0.7 x10^3/uL (1.0-4.8) Monocytes # (Auto) 0.8 x10^3/uL (0.0-1.1) Eosinophils # (Auto) 0.1 x10^3/uL (0.0-0.7) Basophils # (Auto) 0.1 x10^3/uL (0.0-0.2) Prothrombin Time 14.2 SEC (11.7-14.0) Prothromb Time International Ratio 1.1 (0.8-1.1) Activated Partial Thromboplast Time 30 SEC (24-38) Sodium Level 140 mmol/L (136-145) Potassium Level 4.0 mmol/L (3.5-5.1) Chloride Level 101 mmol/L (98-107) Carbon Dioxide Level 33 mmol/L (21-32) Anion Gap 6 (6-14) Blood Urea Nitrogen 17 mg/dL (8-26) Creatinine 1.5 mg/dL (0.7-1.3) Estimated GFR (Cockcroft-Gault) 57.2 BUN/Creatinine Ratio 11 (6-20) Glucose Level 91 mg/dL (70-99) Lactic Acid Level 0.8 mmol/L (0.4-2.0) Calcium Level 9.7 mg/dL (8.5-10.1) Total Bilirubin 1.3 mg/dL (0.2-1.0) Aspartate Amino Transf (AST/SGOT) 14 U/L (15-37) Alanine Aminotransferase (ALT/SGPT) 15 U/L (16-63) Alkaline Phosphatase 70 U/L (46-116) Creatine Kinase 99 U/L (39-308) Creatine Kinase MB (Mass) 2.0 ng/mL (0.0-3.6) Creatine Kinase MB Relative Index 2.0 % (0-4) Troponin I Quantitative 0.070 ng/mL (0.000-0.055) 0.057 ng/mL (0.000-0.055) RL-Qfn-N-Type Natriuretic Peptide 6323 pg/mL (0-124) Total Protein 7.4 g/dL (6.4-8.2) Albumin 3.3 g/dL (3.4-5.0) Albumin/Globulin Ratio 0.8 (1.0-1.7) Ethyl Alcohol Level < 10 mg/dL (0-10) Coronavirus (PCR) Not detected (Not Detected) O2 Saturation 92 % (92-99) Arterial Blood pH 7.33 (7.35-7.45) Arterial Blood pCO2 at Patient Temp 56 mmHg (35-46) Arterial Blood pO2 at Patient Temp 66 mmHg (65-108) Arterial Blood HCO3 29 mmol/L (21-28) Arterial Blood Base Excess 2 mmol/L (-3-3) Oxyhemoglobin 88.9 % Methemoglobin 0.3 % (0.0-1.9) Carbon Monoxide, Quantitative 2.7 % (0.0-1.9) FiO2 40 Test 12/25/19 19:45 12/25/19 21:33 12/26/19 04:30 12/26/19 07:25 Troponin I Quantitative 0.056 ng/mL (0.000-0.055) Glucose (Fingerstick) 208 mg/dL (70-99) Triglycerides Level 34 mg/dL (0-150) Cholesterol Level 156 mg/dL (0-200) LDL Cholesterol, Calculated 82 mg/dL (0-100) VLDL Cholesterol, Calculated 7 mg/dL (0-40) Non-HDL Cholesterol Calculated 89 mg/dL (0-129) HDL Cholesterol 67 mg/dL (40-60) Cholesterol/HDL Ratio 2.3 O2 Saturation 93 % (92-99) Arterial Blood pH 7.31 (7.35-7.45) Arterial Blood pCO2 at Patient Temp 59 mmHg (35-46) Arterial Blood pO2 at Patient Temp 69 mmHg (65-108) Arterial Blood HCO3 29 mmol/L (21-28) Arterial Blood Base Excess 2 mmol/L (-3-3) FiO2 40 Brief Hospital Course Patient is a 64-year-old male who comes into the hospital in the setting of worsening respiratory failure. He unfortunately has history of polysubstance abuse. In the setting after smoking crack cocaine he began to develop respiratory distress. He has been admitted and has been initiated on BiPAP therapy. He has a longstanding history of nonischemic cardiomyopathy status post biventricular pacemaker for a left bundle branch block. He also has underlying history of atrial fibrillation. Patient admitted to the intensive care unit initially since he required BiPAP support for his acute respiratory failure. Patient was seen in consultation by pulmonology as well who recommended Empiric antibiotics nebulizers and diuresis. Patient was transitioned to a nasal cannula and his COVID-19 testing was also negative fo rtunately. Patient will be discharged with home health noted to try to prevent readmissions as he is a high risk for readmission given his lifestyle. Counseling regarding drug abuse took place again, he acknowledged understanding of all the instructions and he voiced understanding and will try to do better Greater than 35 minutes were spent in the discharge process with the patient in counseling coordination of care and arrangements for a safe discharge, case management help in the discharge process was greatly appreciate Physical exam: Lungs with good inspiratory effort and clear to auscultation Cardiovascular exam S1-S2 regular rhythm no murmurs gallops or rubs Neurological exam alert awake oriented in person time place and situation cranial nerves II to XII intact no motor or sensory deficits appreciated Assessment Assessment IMAGING REPORT Signed PATIENT: NEIL EWING ACCOUNT: [id number] : 1955 LOCATION: ER AGE: 64 SEX: M EXAM STATUS: PRE ER ORD. PHYSICIAN: PABLO SILVER DO REASON: SOA, cough PROCEDURE: PORTABLE CHEST 1V AP chest x-ray HISTORY: Shortness of breath and cough. COMPARISON: Chest x-ray November 28, 2019 and priors. FINDINGS: 3-lead cardiac pacemaker. Cardiomegaly stable. Apical emphysema. Prominence of the pulmonary vasculature particularly at the right lower hilum although this is similar to prior CT imaging. The right upper lobe fissural nodular density on the prior CT study is difficult to visualize on this x-ray. There are increased perihilar lower lobe interstitial and alveolar opacities since the prior exam. Limited visualization of the right diaphragm a small right pleural effusion is not excluded. IMPRESSION: Right hilar and lower lobe interstitial and alveolar infiltrates have increased since prior x-rays from November 2019 may represent pulmonary edema or multilobar pneumonia. There may be a small right pleural effusion. See above. Electronically signed by: Jose Alfredo Donnelly MD (12/25/2019 11:22 AM) [id number] Discharge Information Condition at Discharge: Improved Follow Up: Weeks Disposition/Orders: D/C to Home w/ HH Scheduled Amlodipine Besylate (Amlodipine Besylate) 10 Mg Tablet, 10 MG PO DAILY, (Reported) NEXT DOSE DUE IN AM Entered as Reported by: ERICK NICOLE on 06/13/13 1232 Last Action: Continued on 12/25/192321 by PENNIE GONZALEZ MD Apixaban (Eliquis) 5 Mg Tablet, 5 MG PO BID for blood thinner, (Reported) Entered as Reported by: SULAIMAN MARTIN on 08/02/19 1459 Last Action: Continued on 12/25/192321 by PENNIE GONZALEZ MD Doxycycline Hyclate (Doxycycline Hyclate) 100 Mg Tablet, 100 MG PO BID for pneumonia for 10 Days, #20 Prescribed by: RANJITH RICHARDSON MD on 11/29/19 1408 Last Action: HELD on 12/25/192321 by PENNIE GONZALEZ MD Furosemide (Lasix) 20 Mg Tablet, 1 TAB PO DAILY for increase of weight/ dyspnea for 30 Days, #30 Ref 0 Prescribed by: HIREN ZHOU MD on 05/10/19 1511 Last Action: Continued on 12/25/192321 by PENNIE GONZALEZ MD Ipratropium/Albuterol Sulfate (Duoneb 0.5-3(2.5) Mg/3 Ml) 3 Ml Ampul.neb, 3 ML NEB Q4HRS for COPD for 30 Days, #180 Prescribed by: HIREN ZHOU MD on 05/09/19 1420 Last Action: HELD on 12/25/192321 by PENNIE GONZALEZ MD Lactobacillus Rhamnosus Gg (Culturelle) 1 Each Cap.sprink, 1 CAP PO BID for Diarrhea for 10 Days, #20 Prescribed by: CARMEN OROZCO MD on 09/15/19 1527 Last Action: HELD on 12/25/192321 by PENNIE GONZALEZ MD Lactobacillus Rhamnosus Gg (Culturelle) 1 Each Cap.sprink, 1 CAP PO BID for supplement for 30 Days, #60 Prescribed by: RANJITH RICHARDSON MD on 11/29/19 1408 Last Action: HELD on 12/25/192321 by PENNIE GONZALEZ MD Lisinopril (Lisinopril) 40 Mg Tablet, 20 MG PO DAILY for HTN for 30 Days, #15 Prescribed by: HIREN ZHOU MD on 05/10/19 1155 Last Action: Continued on 12/25/192321 by PENNIE GONZALEZ MD Metoprolol Succinate (Toprol Xl) 25 Mg Tab.er.24h, 1 TAB PO DAILY for blood pressure for 30 Days, #30 Ref 0 (Reported) Entered as Reported by: SULAIMAN MARTIN on 08/02/19 1458 Last Action: Continued on 12/25/192321 by PENNIE GONZALEZ MD Potassium Chloride (Potassium Chloride) 10 Meq Tab.er.prt, 20 MEQ PO DAILY, (Reported) NEXT DOSE DUE IN AM Entered as Reported by: ERICK NICOLE on 06/13/13 1232 Last Action: HELD on 12/25/192321 by PENNIE GONZALEZ MD Prednisone (Prednisone) 50 Mg Tablet, 1 TAB PO DAILY for COPD, #5 Prescribed by: HIREN ZHOU MD on 12/27/19 0853 Simvastatin (Zocor) 20 Mg Tablet, 20 MG PO HS for FOR CHOLESTEROL, #30 Ref 0 (Reported) NEXT DOSE DUE TONIGHT AT BEDTIME Entered as Reported by: Eliceo Herring on 10/27/14 1329 Last Action: Continued on 12/25/192321 by PENNIE GONZALEZ MD Scheduled PRN Albuterol Sulfate (Albuterol Sulfate Neb Soln) 0.63 Mg/3 Ml Vial.neb, 0.63 MG NEB PRN Q4HRS PRN for SHORTNESS OF BREATH for 30 Days, #100 Ref 2 NEEDED Prescribed by: LOU HERNANDEZ on 10/13/16 0932 Last Action: Converted on 12/25/192321 by PENNIE GONZALEZ MD Albuterol Sulfate (Proair Hfa) 8.5 Gm Hfa.aer.ad, 2.5 MG NEB PRN Q2HR PRN for SHORTNESS OF BREATH for 30 Days, #1 Prescribed by: HIREN ZHOU MD on 05/10/19 1155 Last Action: Continued on 12/25/192321 by PENNIE GONZALEZ MD Justicifation of Admission Dx: Justifications for Admission: Justification of Admission Dx: Yes Respiratory Failure: Severe Resp Distress HIREN ZHOU MD Dec 27, 2019 09:00
--- NOTE | 2019-12-27 11:12 | CARD ---
MR#: [id number] Date of Study: 12/27/2019 Ordering Physician: PENNIE GONZALEZ, Referring Physician: PENNIE GONZALEZ, Tech: Danuta Cabrera RDCS APPROVED REPORT EXAM: Two-dimensional and M-mode echocardiogram with Doppler and color Doppler. Other Information Quality : Good INDICATION Congestive Heart Failure Non STEMI Bi-V ICD, History NICM 2D DIMENSIONS RVDd3.6 (2.9-3.5cm)Left Atrium(2D)5.2 (1.6-4.0cm) IVSd1.5 (0.7-1.1cm)Aortic Root(2D)4.8 (2.0-3.7cm) LVDd6.8 (3.9-5.9cm)LVOT Diameter2.3 (1.8-2.4cm) PWd1.5 (0.7-1.1cm)LVDs6.0 (2.5-4.0cm) FS (%) 10.5 %SV52.4 ml LVEF(%)22.3 (>50%) Aortic Valve AoV Peak Lorenzo.159.6cm/sAoV VTI26.4cm AO Peak GR.10.2mmHgLVOT VTI 22.32cm AO Mean GR.6mmHgAVA (VTI)3.60cm2 AI P 1/2 Syve380zg Mitral Valve MV E Xybwnkwd200.4cm/sMV DECEL APMN408iw MV A Udjkbemy61.1cm/sE/A Ratio2.1 TDI Lateral E' P. V3.35cm/sMedial E' P. V3.15cm/s E/Lateral E'33.3E/Medial E'35.4 Tricuspid Valve TR P. Pudmehjh949wf/sRAP [id number] TR Peak Gr.[id number] LEFT VENTRICLE The Left Ventricle is moderately dilated. There is mild concentric left ventricular hypertrophy. Left ventricle systolic function is severely impaired. The Ejection Fraction is 20-25%. There is global h ypokinesis of the left ventricle. Apical motion consistent with pacemaker activation. Tissue Doppler imaging reveals severe left ventricular diastolic dysfunction. No left ventricle thrombus noted on is study. RIGHT VENTRICLE The right ventricle is mildly dilated. The right ventricular systolic function is normal. There is a pacemaker lead in the right ventricle. ATRIA The left atrium is moderately dilated. The right atrium is moderately dilated. A pacemaker is seen in the right atrium consistent with history. The interatrial septum is intact with no evidence for an a trial septal defect or patent foramen ovale as noted on 2-D or Doppler imaging. AORTIC VALVE The aortic valve is calcified but opens well. Doppler and Color Flow revealed mild aortic regurgitati on. There is no significant aortic valvular stenosis. MITRAL VALVE The mitral valve is thickened but opens well. There is no evidence of mitral valve prolapse. There is no mitral valve stenosis. Doppler and Color-flow revealed mild mitral regurgitation. TRICUSPID VALVE The tricuspid valve is normal in structure and function. Doppler and Color Flow revealed trace tricus pid regurgitation. There is moderate pulmonary hypertension. The PA pressure was estimated at 51 mmHg . There is no tricuspid valve stenosis. PULMONIC VALVE The pulmonary valve is normal in structure and function. Doppler and Color Flow revealed mild pulmoni c valvular regurgitation. There is no pulmonic valvular stenosis. GREAT VESSELS The aortic root is normal in size. The IVC is dilated and collapses >50% with inspiration. PERICARDIAL EFFUSION There is no evidence of significant pericardial effusion. Critical Notification Critical Value: No <Conclusion> Left ventricle systolic function is severely impaired. The Ejection Fraction is 20-25%. There is global hypokinesis of the left ventricle. Apical motion consistent with pacemaker activation . There is a pacemaker lead in the right ventricle. Doppler and Color Flow revealed mild aortic regurgitation. Doppler and Color Flow revealed trace tricuspid regurgitation. There is moderate pulmonary hypertensi on. The PA pressure was estimated at 51 mmHg. Signed by : Jarrod Abarca, Electronically Approved : 12/27/2019 11:12:20
--- NOTE | 2019-12-27 13:22 | NUR ---
SS following for discharge planning. SS reviewed pt chart and discussed with pt RN. Pt is from home and is currently requiring oxygen. Pt has home oxygen. COVID19 negative. Discharge orders received for home with home healthcare. SS phoned and faxed discharge orders and referral to [facility], ; fax [phone]. Pt's RN notified.
[2020-01-10] MEDS ORDERED: PRED50TA PO (14:42)
== END 2019-12-27 15:00 | disposition home health service (06) | DRG 189 ==
LOC: ER 10:52 → 1 WEST ICU 13:10
PROVIDERS: ADMIT Family Medicine; ATTEND Family Medicine
PROC: 5A09357 Assistance with Respiratory Ventilation, Less than 24 Consecutive Hours, Continuous Positive Airway Pressure (ICD-10-PCS; principal; 2019-12-25)
PROC: 5A09357 Assistance with Respiratory Ventilation, Less than 24 Consecutive Hours, Continuous Positive Airway Pressure (ICD-10-PCS; 2019-12-26)
PROC: 5A09357 Assistance with Respiratory Ventilation, Less than 24 Consecutive Hours, Continuous Positive Airway Pressure (ICD-10-PCS; 2019-12-27)
DX: J96.21 Acute and chronic respiratory failure with hypoxia (principal); I21.A1 Myocardial infarction type 2; I50.43 Acute on chronic combined systolic (congestive) and diastolic (congestive) heart failure; J18.9 Pneumonia, unspecified organism; I13.0 Hypertensive heart and chronic kidney disease with heart failure and stage 1 through stage 4 chronic kidney disease, or unspecified chronic kidney disease; I42.8 Other cardiomyopathies; J96.22 Acute and chronic respiratory failure with hypercapnia; E78.5 Hyperlipidemia, unspecified; F12.90 Cannabis use, unspecified, uncomplicated; F14.10 Cocaine abuse, uncomplicated; F17.210 Nicotine dependence, cigarettes, uncomplicated; I48.0 Paroxysmal atrial fibrillation; J43.9 Emphysema, unspecified; N18.3 Chronic kidney disease, stage 3 (moderate); Z20.828 Contact with and (suspected) exposure to other viral communicable diseases; Z79.01 Long term (current) use of anticoagulants; Z82.49 Family history of ischemic heart disease and other diseases of the circulatory system; Z83.3 Family history of diabetes mellitus; Z91.19 Patient's noncompliance with other medical treatment and regimen; Z99.81 Dependence on supplemental oxygen; Z71.51 Drug abuse counseling and surveillance of drug abuser; Z88.8 Allergy status to other drugs, medicaments and biological substances; Z71.6 Tobacco abuse counseling
CPT/HCPCS: 36415; 36600; 71045; 80053; 80061; 82553; 82805; 82962; 83605; 83880; 84484; 85025; 85610; 85730; 87040; 93005; 93306; 94640; 94660; 94760; 96374; 96375; 99291; G0480; J1100; J1940; J2405; J2920; J3490; G0378; U0003-CS

== ENCOUNTER 2020-03-06 11:36 | Inpatient (IN) | payer MEDICARE, MEDICAID ==
[~2020-03-06] VITALS: Ht 185.4 cm; Wt 91.5 kg
[~2020-03-06 11:36] MED LIST changes: +AMIO200T6 PO; +AMLO-187 PO; -AMLO10TA8 PO; +AMOX1TAB61 PO; +BUME1TAB3 PO; +NICO1PAT21 TP; +POTA20TA4 PO; +PRED50TA PO
--- NOTE | 2020-03-06 12:02 | ED.ADGEN ---
Past Medical History Past Medical History: Asthma, CHF, COPD, High Cholesterol, Hypertension Additional Past Medical Histor: CRACK, COCAINE Past Surgical History: Other Additional Past Surgical Histo: PACEMAKER Smoking Status: Former Smoker Alcohol Use: Occasionally Drug Use: Cocaine, Marijuana General Adult EDM: Chief Complaint: SHORTNESS OF BREATH HPI: HPI: Patient is a 64 year old AA male who presents to the emergency room via EMS with complaints of increased shortness of breath, and an increased cough with pink sputum since yesterday. Patient denies any known Covid-19 exposure. Patient reports that he was admitted a few weeks ago for a COPD exacerbation and he was discharged home on February 26. He denies any chest pain, palpitations, nausea, vomiting, diarrhea, abdominal pain, sore throat, or headache. Patient reports that his breathing has become more labored. He denies any increased swelling in his lower extremities. Patient states he has not missed any of his prescribed medications. He denies any fever. The patient currently denies any pain. Review of Systems: Review of Systems: Constitutional: Denies fever or chills. [] HENT: Denies nasal congestion or sore throat. [] Respiratory: See HPI Cardiovascular: Denies chest pain; reports chronic swelling in bilateral lower extremities denies any increase GI: Denies abdominal pain, nausea, vomiting, or diarrhea. [] Musculoskeletal: Denies back pain or joint pain. [] Integument: Denies rash. [] Neurologic: Denies headache, focal weakness or sensory changes. [] Lymphatic: Denies swollen glands. [] Psychiatric: Denies depression or anxiety. [] Current Medications: Current Medications Medications (Trade) Dose Ordered Sig/Dex Start Time Stop Time Status Last Admin Dose Admin Bumetanide (Bumex) 1 mg 1X ONCE 03/06/20 13:15 03/06/20 13:16 DC 03/06/20 13:15 1 MG Allergies: Allergies: Allergies Coded Allergies Type Severity Reaction Last Updated Verified levofloxacin Allergy Intermediate Itching 01/28/20 Yes Physical Exam: PE: Constitutional: Well developed, well nourished, mild distress, ill appearance. [] HENT: Normocephalic, atraumatic, bilateral external ears normal, nose normal. [] Eyes: PERRLA, EOMI, conjunctiva normal, no discharge. [] Neck: Normal range of motion, no stridor. [] Cardiovascular:Heart rate regular rhythm Lungs & Thorax: Respirations even and unlabored, abdominal retractions present, increased respiratory rate, mild distress Abdomen: soft, no tenderness Skin: Warm, dry, no erythema, no rash. [] Extremities: No cyanosis, no clubbing, ROM intact, 2+ edema BLE Neurologic: Alert and oriented X 3, normal motor function, normal sensory function, no focal deficits noted. [] Psychologic: Affect normal, judgement normal, mood normal. [] Current Patient Data: Labs: Laboratory Tests Test 03/06/20 12:03 03/06/20 12:25 03/06/20 13:05 O2 Saturation 97 % (92-99) Arterial Blood pH 7.48 (7.35-7.45) H Arterial Blood pCO2 at Patient Temp 35 mmHg (35-46) Arterial Blood pO2 at Patient Temp 93 mmHg (65-108) Arterial Blood HCO3 25 mmol/L (21-28) Arterial Blood Base Excess 2 mmol/L (-3-3) Oxyhemoglobin 96.1 % Methemoglobin 0.4 % (0.0-1.9) Carbon Monoxide, Quantitative 0.7 % (0.0-1.9) FiO2 40/5lnc White Blood Count 7.8 x10^3/uL (4.0-11.0) Red Blood Count 4.00 x10^6/uL (4.30-5.70) L Hemoglobin 11.4 g/dL (13.0-17.5) L Hematocrit 34.9 % (39.0-53.0) L Mean Corpuscular Volume 87 fL (79-100) Mean Corpuscular Hemoglobin 29 pg (25-35) Mean Corpuscular Hemoglobin Concent 33 g/dL (31-37) Red Cell Distribution Width 16.8 % (11.5-14.5) H Platelet Count 117 x10^3/uL (140-400) L Neutrophils (%) (Auto) 86 % (31-73) H Lymphocytes (%) (Auto) 6 % (24-48) L Monocytes (%) (Auto) 7 % (0-9) Eosinophils (%) (Auto) 1 % (0-3) Basophils (%) (Auto) 1 % (0-3) Neutrophils # (Auto) 6.7 x10^3/uL (1.8-7.7) Lymphocytes # (Auto) 0.5 x10^3/uL (1.0-4.8) L Monocytes # (Auto) 0.5 x10^3/uL (0.0-1.1) Eosinophils # (Auto) 0.0 x10^3/uL (0.0-0.7) Basophils # (Auto) 0.1 x10^3/uL (0.0-0.2) Segmented Neutrophils % 79 % (35-66) H Band Neutrophils % 8 % (0-9) Lymphocytes % 10 % (24-48) L Atypical Lymphocytes % (Manual) 1 % (0-0) H Monocytes % 2 % (0-10) Platelet Estimate Decreased (ADEQUATE) Anisocytosis Slight Ovalocytes Mod Sodium Level 140 mmol/L (136-145) Potassium Level 3.3 mmol/L (3.5-5.1) L Chloride Level 104 mmol/L (98-107) Carbon Dioxide Level 31 mmol/L (21-32) Anion Gap 5 (6-14) L Blood Urea Nitrogen 25 mg/dL (8-26) Creatinine 1.4 mg/dL (0.7-1.3) H Estimated GFR (Cockcroft-Gault) 61.9 BUN/Creatinine Ratio 18 (6-20) Glucose Level 103 mg/dL (70-99) H Calcium Level 9.7 mg/dL (8.5-10.1) Magnesium Level 2.2 mg/dL (1.8-2.4) Total Bilirubin 1.3 mg/dL (0.2-1.0) H Aspartate Amino Transferase (AST) 21 U/L (15-37) Alanine Aminotransferase (ALT) 19 U/L (16-63) Alkaline Phosphatase 47 U/L (46-116) Creatine Kinase 166 U/L (39-308) Creatine Kinase MB (Mass) 3.2 ng/mL (0.0-3.6) Creatine Kinase MB Relative Index 1.9 % (0-4) Troponin I Quantitative 0.201 ng/mL (0.000-0.055) BE-Jfr-H-Type Natriuretic Peptide 87029 pg/mL (0-124) H Total Protein 7.1 g/dL (6.4-8.2) Albumin 3.5 g/dL (3.4-5.0) Albumin/Globulin Ratio 1.0 (1.0-1.7) Lipase 37 U/L (73-393) L Influenza Type A Antigen Negative (NEGATIVE) Influenza Type B Antigen Negative (NEGATIVE) SARS-CoV-2 Antigen (Rapid) Negative (NEGATIVE) Laboratory Tests 03/06/20 12:25 Laboratory Tests 03/06/20 12:25 Vital Signs: Vital Signs Date Time Temp Pulse Resp B/P (MAP) Pulse Ox O2 Delivery O2 Flow Rate FiO2 03/06/20 13:11 Nasal Cannula 8.0 03/06/20 11:56 99.9 137/90 (106) 99.9 03/06/20 11:36 69 EKG: EK- [paced rhythm, rate 69, no STEMI, read by Dr. Silver.] Heart Score: HEART Score for Chest Pain: HEART Score for Chest Pain Response (Comments) Value History Slighlty/Non-Suspicious 0 ECG Nonspecific Repolarizatio 1 Age >45 - < 65 1 Risk Factors >3 Risk Factors or Hx CAD 2 Troponin >3 x Normal Limit 2 Total 6 Risk Factors: Risk Factors: DM, Current or recent (<one month) smoker, HTN, HLP, family history of CAD, obesity. Risk Scores: Score 0 - 3: 2.5% MACE over next 6 weeks - Discharge Home Score 4 - 6: 20.3% MACE over next 6 weeks - Admit for Clinical Observation Score 7 - 10: 72.7% MACE over next 6 weeks - Early Invasive Strategies Radiology/Procedures: Radiology/Procedures: PROCEDURE: CHEST AP ONLY Single AP view of the chest. Comparison: 02/27/2020. Indication: Vomiting and diarrhea Findings: 3-lead left subclavian pacemaker is reidentified and is stable. The heart is enlarged but stable. There is no pneumothorax or effusion. Persistent patchy airspace disease and trace effusions. Impression: 1. Findings again suggest volume overload with cardiomegaly. Trace effusions are reidentified. [] Course & Med Decision Making: Course & Med Decision Making Pertinent Labs and Imaging studies reviewed. (See chart for details) 64-year-old male presented to the emergency room with shortness of breath and increased cough since yesterday. CBC reveals no acute changes; CMP reveals potassium of 3.3, creatinine 1.4, glucose 100 320 bili 1.3; patient's troponin is 0.201 this is somewhat increased from his last troponin during his last visit. His BNP is 17,645. Influenza and COVID-19 test are pending. Patient was given 1 mg of Bumex IV and 325 mg of aspirin while in the emergency department. His oxygen saturation continued to be in the low 90s after increasing his oxygen to 8 L by nasal cannula by RT. Patient was placed on BiPAP in the ER. [id number] with Dr. Paulino who is the admitting physician, and care was as sumed following discussion of patient. Will admit patient [facility] for PUI, CHF exacerbation, dyspnea, elevated troponin. I advised Dr. Paulino that the patient been given 1 mg of Bumex in the ER for elevated BNP and dyspnea. Patient's vital signs stable. Patient remains afebrile, appears nontoxic, mild respiratory distress noted. Patient will be admitted to the [facility] floor. Patient's case and plan of care also discussed with Dr. Silver [] Dragon Disclaimer: Arsenio Disclaimer: This electronic medical record was generated, in whole or in part, using a voice recognition dictation system. Departure Departure Impression: Primary Impression: Person under investigation for COVID-19 Additional Impressions: CHF exacerbation Dyspnea Elevated troponin Disposition: ADMITTED INPT THIS HOSP Admitting Physician: NOE (Lora) Condition: STABLE Referrals: MARTINEZ DIAL APRN (PCP) Attending Signature Attending Signature I have reviewed the PA/BUSINESS PERFORMANCE SPECIALIST's note and plan of care. I was available for consultation as needed during the patient's visit in the emergency department. I agree with the clinical impression, plan, and disposition. Problem Qualifiers Additional Impressions: CHF exacerbation Heart failure type: unspecified Qualified Codes: I50.9 - Heart failure, unspecified Dyspnea Dyspnea type: shortness of breath Qualified Codes: R06.02 - Shortness of breath KURT OBRIEN APRN Mar 06, 2020 12:02 PABLO SILVER DO Mar 06, 2020 20:14
[2020-03-06 12:43] LABS: BASE EXCESS COOX 2 mmol/L (-3-3); HCO3 COOX 25 mmol/L (21-28); METHEMOGLOBIN 0.4 % (0.0-1.9); OXYHEMOGLOBIN 96.1 %; PCO2 COOX 35 mmHg (35-46); PO2 COOX 93 mmHg (65-108); SAT O2 COOX 97 % (92-99)
[2020-03-06 12:43] LABS: BASO # 0.1 x10^3/uL (0.0-0.2); BASO % 1 % (0-3); EOS % 1 % (0-3); HEMATOCRIT 34.9 % (39.0-53.0); HEMOGLOBIN 11.4 g/dL (13.0-17.5); LYMPH # 0.5 x10^3/uL (1.0-4.8); LYMPH % 6 % (24-48); MEAN CORPUSCULAR HEMOGLOBIN 29 pg (25-35); MEAN CORPUSCULAR HGB CONC 33 g/dL (31-37); MEAN CORPUSCULAR VOLUME 87 fL (79-100); MONO # 0.5 x10^3/uL (0.0-1.1); MONO % 7 % (0-9); NEUT # 6.7 x10^3/uL (1.8-7.7); NEUT % 86 % (31-73); PLATELET COUNT 117 x10^3/uL (140-400); RED CELL DISTRIBUTION WIDTH 16.8 % (11.5-14.5); WHITE BLOOD COUNT 7.8 x10^3/uL (4.0-11.0)
--- NOTE | 2020-03-06 12:44 | RAD ---
Single AP view of the chest. Comparison: 02/27/2020. Indication: Vomiting and diarrhea Findings: 3-lead left subclavian pacemaker is reidentified and is stable. The heart is enlarged but stable. There is no pneumothorax or effusion. Persistent patchy airspace disease and trace effusions. Impression: 1. Findings again suggest volume overload with cardiomegaly. Trace effusions are reidentified. Electronically signed by: Bryson Marshall MD (03/06/2020 12:41 PM) [id number]
[2020-03-06 12:51] LABS: CALCIUM 9.7 mg/dL (8.5-10.1); CREATININE 1.4 mg/dL (0.7-1.3); GFR 61.9; POTASSIUM 3.3 mmol/L (3.5-5.1)
[2020-03-06 12:57] LABS: ALBUMIN 3.5 g/dL (3.4-5.0); MAGNESIUM 2.2 mg/dL (1.8-2.4); TOTAL BILIRUBIN 1.3 mg/dL (0.2-1.0); TOTAL PROTEIN 7.1 g/dL (6.4-8.2)
[2020-03-06] MEDS ORDERED: BUMETANIDE 1 MG/4 ML VIAL. IV ONE (13:15)
[2020-03-06] MEDS ORDERED: ASPIRIN 325 MG TABLET PO ONE (13:30)
--- NOTE | 2020-03-06 13:31 | PDOC1 ---
History and Physical Date of Admission Date of Admission DATE: 03/06/20 TIME: 13:30 Identification/Chief Complaint Chief Complaint SEEN IN ER WITH WORSENING SOA, 34 year old AA male who presents to the emergency room via EMS with complaints of increased shortness of breath, and an increased cough with pink sputum since yesterday. Patient denies any known Covid-19 exposure. Patient reports that he was admitted a few weeks ago for a COPD exacerbation and he was discharged home on February 26. He denies any chest pain, palpitations, nausea, vomiting, diarrhea, abdominal pain, sore throat, or headache. reports that his breathing has become more labored. TROPONIN I MILDLY ELEVATED. Past Medical History Cardiovascular: CHF, HTN, Hyperlipidemia Pulmonary: Asthma, COPD GI: Other Heme/Onc: No pertinent hx Hepatobiliary: No pertinent hx Psych: No pertinent hx Rheumatologic: No pertinent hx Infectious disease: No pertinent hx Renal/: Chronic renal insuff Endocrine: No pertinent hx Past Surgical History Past Surgical History: Appendectomy, Hernia Repair, Other Family History Family History: Coronary Artery Disease, Diabetes, Hypertension Social History Smoke: <1 pack per day ALCOHOL: heavy Drugs: Cocaine, Marijuana Current Medications Current Medications Current Medications Bumetanide (Bumex) 1 mg 1X ONCE IV ; Start 03/06/20 at 13:15; Stop 03/06/20 at 13:16; Status DC Aspirin (Catarina Aspirin) 325 mg 1X ONCE PO ; Start 03/06/20 at 13:30; Stop 03/06/20 at 13:31 Active Scripts Active Bumetanide 1 Mg Tablet 1 Mg PO BID Amiodarone Hcl 200 Mg Tablet 200 Mg PO DAILY Potassium Chloride (Potassium Chloride) 20 Meq Tablet.er 20 Meq PO DAILY 30 Days Lisinopril 40 Mg Tablet 20 Mg PO DAILY 30 Days Proair Hfa (Albuterol Sulfate) 8.5 Gm Hfa.aer.ad 2.5 Mg NEB PRN Q2HR PRN 30 Days Duoneb 0.5-3(2.5) Mg/3 Ml (Albuterol/Ipratropium) 3 Ml Ampul.neb 3 Ml NEB Q4HRS 30 Days Albuterol Sulfate Neb Soln (Albuterol Sulfate) 0.63 Mg/3 Ml Vial.neb 0.63 Mg NEB PRN Q4HRS PRN 30 Days NEEDED Reported NICODERM CQ 21mg (Nicotine) 1 Each Patch.td24 1 Patch TP DAILY Eliquis (Apixaban) 5 Mg Tablet 5 Mg PO BID Toprol Xl (Metoprolol Succinate) 25 Mg Tab.er.24h 1 Tab PO DAILY 30 Days Zocor (Simvastatin) 20 Mg Tablet 20 Mg PO HS NEXT DOSE DUE TONIGHT AT BEDTIME Allergies Allergies: Coded Allergies: levofloxacin (Verified Allergy, Intermediate, Itching, 01/28/20) ROS Review of System Review of Systems: Review of Systems: Constitutional: Denies fever or chills. [] HENT: Denies nasal congestion or sore throat. [] Respiratory: See HPI Cardiovascular: Denies chest pain; reports chronic swelling in bilateral lower extremities denies any increase GI: Denies abdominal pain, nausea, vomiting, or diarrhea. [] Musculoskeletal: Denies back pain or joint pain. [] Integument: Denies rash. [] Neurologic: Denies headache, focal weakness or sensory changes. [] Lymphatic: Denies swollen glands. [] Psychiatric: Denies depression or anxiety. [] 14 pt ros otherwise neg Physical Exam Physical Exam Constitutional: Well developed, well nourished, mild distress, ill appearance. [] HENT: Normocephalic, atraumatic, bilateral external ears normal, nose normal. [] Eyes: PERRLA, EOMI, conjunctiva normal, no discharge. [] Neck: Normal range of motion, no stridor. [] Cardiovascular:Heart rate regular rhythm Lungs & Thorax: Respirations even and unlabored, abdominal retractions present, increased respiratory rate, mild distress Abdomen: soft, no tenderness Skin: Warm, dry, no erythema, no rash. [] Extremities: No cyanosis, no clubbing, ROM intact, 2+ edema BLE Neurologic: Alert and oriented X 3, normal motor function, normal sensory function, no focal deficits noted. [] Psychologic: Affect normal, judgement normal, mood normal. [] General: mild distress HEENT: Mucous membr. moist/pink Abdomen: Soft Rectal Exam: not examined Extremities: No cyanosis Neuro: Normal speech, Normal tone, Cranial nerves 3-12 NL Vitals Vitals Vital Signs Date Time Temp Pulse Resp B/P (MAP) Pulse Ox O2 Delivery O2 Flow Rate FiO2 03/06/20 13:11 Nasal Cannula 8.0 03/06/20 11:56 99.9 137/90 (106) 99.9 Labs Labs Laboratory Tests Test 03/06/20 12:03 03/06/20 12:25 O2 Saturation 97 % (92-99) Arterial Blood pH 7.48 (7.35-7.45) Arterial Blood pCO2 at Patient Temp 35 mmHg (35-46) Arterial Blood pO2 at Patient Temp 93 mmHg (65-108) Arterial Blood HCO3 25 mmol/L (21-28) Arterial Blood Base Excess 2 mmol/L (-3-3) Oxyhemoglobin 96.1 % Methemoglobin 0.4 % (0.0-1.9) Carbon Monoxide, Quantitative 0.7 % (0.0-1.9) FiO2 40/5lnc White Blood Count 7.8 x10^3/uL (4.0-11.0) Red Blood Count 4.00 x10^6/uL (4.30-5.70) Hemoglobin 11.4 g/dL (13.0-17.5) Hematocrit 34.9 % (39.0-53.0) Mean Corpuscular Volume 87 fL (79-100) Mean Corpuscular Hemoglobin 29 pg (25-35) Mean Corpuscular Hemoglobin Concent 33 g/dL (31-37) Red Cell Distribution Width 16.8 % (11.5-14.5) Platelet Count 117 x10^3/uL (140-400) Neutrophils (%) (Auto) 86 % (31-73) Lymphocytes (%) (Auto) 6 % (24-48) Monocytes (%) (Auto) 7 % (0-9) Eosinophils (%) (Auto) 1 % (0-3) Basophils (%) (Auto) 1 % (0-3) Neutrophils # (Auto) 6.7 x10^3/uL (1.8-7.7) Lymphocytes # (Auto) 0.5 x10^3/uL (1.0-4.8) Monocytes # (Auto) 0.5 x10^3/uL (0.0-1.1) Eosinophils # (Auto) 0.0 x10^3/uL (0.0-0.7) Basophils # (Auto) 0.1 x10^3/uL (0.0-0.2) Sodium Level 140 mmol/L (136-145) Potassium Level 3.3 mmol/L (3.5-5.1) Chloride Level 104 mmol/L (98-107) Carbon Dioxide Level 31 mmol/L (21-32) Anion Gap 5 (6-14) Blood Urea Nitrogen 25 mg/dL (8-26) Creatinine 1.4 mg/dL (0.7-1.3) Estimated GFR (Cockcroft-Gault) 61.9 BUN/Creatinine Ratio 18 (6-20) Glucose Level 103 mg/dL (70-99) Calcium Level 9.7 mg/dL (8.5-10.1) Magnesium Level 2.2 mg/dL (1.8-2.4) Total Bilirubin 1.3 mg/dL (0.2-1.0) Aspartate Amino Transf (AST/SGOT) 21 U/L (15-37) Alanine Aminotransferase (ALT/SGPT) 19 U/L (16-63) Alkaline Phosphatase 47 U/L (46-116) Creatine Kinase 166 U/L (39-308) Creatine Kinase MB (Mass) 3.2 ng/mL (0.0-3.6) Creatine Kinase MB Relative Index 1.9 % (0-4) Troponin I Quantitative 0.201 ng/mL (0.000-0.055) AC-Yxy-K-Type Natriuretic Peptide 50210 pg/mL (0-124) Total Protein 7.1 g/dL (6.4-8.2) Albumin 3.5 g/dL (3.4-5.0) Albumin/Globulin Ratio 1.0 (1.0-1.7) Lipase 37 U/L (73-393) Laboratory Tests Test 03/06/20 12:03 03/06/20 12:25 O2 Saturation 97 % (92-99) Arterial Blood pH 7.48 (7.35-7.45) Arterial Blood pCO2 at Patient Temp 35 mmHg (35-46) Arterial Blood pO2 at Patient Temp 93 mmHg (65-108) Arterial Blood HCO3 25 mmol/L (21-28) Arterial Blood Base Excess 2 mmol/L (-3-3) Oxyhemoglobin 96.1 % Methemoglobin 0.4 % (0.0-1.9) Carbon Monoxide, Quantitative 0.7 % (0.0-1.9) FiO2 40/5lnc White Blood Count 7.8 x10^3/uL (4.0-11.0) Red Blood Count 4.00 x10^6/uL (4.30-5.70) Hemoglobin 11.4 g/dL (13.0-17.5) Hematocrit 34.9 % (39.0-53.0) Mean Corpuscular Volume 87 fL (79-100) Mean Corpuscular Hemoglobin 29 pg (25-35) Mean Corpuscular Hemoglobin Concent 33 g/dL (31-37) Red Cell Distribution Width 16.8 % (11.5-14.5) Platelet Count 117 x10^3/uL (140-400) Neutrophils (%) (Auto) 86 % (31-73) Lymphocytes (%) (Auto) 6 % (24-48) Monocytes (%) (Auto) 7 % (0-9) Eosinophils (%) (Auto) 1 % (0-3) Basophils (%) (Auto) 1 % (0-3) Neutrophils # (Auto) 6.7 x10^3/uL (1.8-7.7) Lymphocytes # (Auto) 0.5 x10^3/uL (1.0-4.8) Monocytes # (Auto) 0.5 x10^3/uL (0.0-1.1) Eosinophils # (Auto) 0.0 x10^3/uL (0.0-0.7) Basophils # (Auto) 0.1 x10^3/uL (0.0-0.2) Sodium Level 140 mmol/L (136-145) Potassium Level 3.3 mmol/L (3.5-5.1) Chloride Level 104 mmol/L (98-107) Carbon Dioxide Level 31 mmol/L (21-32) Anion Gap 5 (6-14) Blood Urea Nitrogen 25 mg/dL (8-26) Creatinine 1.4 mg/dL (0.7-1.3) Estimated GFR (Cockcroft-Gault) 61.9 BUN/Creatinine Ratio 18 (6-20) Glucose Level 103 mg/dL (70-99) Calcium Level 9.7 mg/dL (8.5-10.1) Magnesium Level 2.2 mg/dL (1.8-2.4) Total Bilirubin 1.3 mg/dL (0.2-1.0) Aspartate Amino Transf (AST/SGOT) 21 U/L (15-37) Alanine Aminotransferase (ALT/SGPT) 19 U/L (16-63) Alkaline Phosphatase 47 U/L (46-116) Creatine Kinase 166 U/L (39-308) Creatine Kinase MB (Mass) 3.2 ng/mL (0.0-3.6) Creatine Kinase MB Relative Index 1.9 % (0-4) Troponin I Quantitative 0.201 ng/mL (0.000-0.055) OV-Dwt-E-Type Natriuretic Peptide 05281 pg/mL (0-124) Total Protein 7.1 g/dL (6.4-8.2) Albumin 3.5 g/dL (3.4-5.0) Albumin/Globulin Ratio 1.0 (1.0-1.7) Lipase 37 U/L (73-393) Images Images INDICATION Cardiomyopathy LV Function:Systolic 2D DIMENSIONS RVDd 3.8 (2.9-3.5cm) Left Atrium(2D) 4.4 (1.6-4.0cm) IVSd 1.4 (0.7-1.1cm) Aortic Root(2D) 3.3 (2.0-3.7cm) LVDd 6.3 (3.9-5.9cm) LVOT Diameter 2.4 (1.8-2.4cm) PWd 1.4 (0.7-1.1cm) LVDs 4.7 (2.5-4.0cm) FS (%) 17.0 % SV 102.7 ml LVEF(%) 35.0 (>50%) Tricuspid Valve TR P. Velocity 244cm/s RAP ESTIMATE 3mmHg TR Peak Gr. 24mmHg RVSP 27mmHg LEFT VENTRICLE The Left Ventricle is mildly dilated. There is mild concentric left ventricular hypertrophy. Left ventricle systolic function is mild to moderately impaired. The Ejection Fraction is 40%. Septal motion consistent with conduction abnormality. TRICUSPID VALVE The tricuspid valve is normal in structure and function. Doppler and Color Flow revealed physiological tricuspid regurgitation. The PA pressure was estimated at 27 mmHg. There is no tricuspid valve stenosis. GREAT VESSELS na PERICARDIAL EFFUSION There is no evidence of significant pericardial effusion. Critical Notification Critical Value: No <Conclusion> Limited echo to evaluate LV function. Left ventricle systolic function is mild to moderately impaired. The Ejection Fraction is 40%. Septal motion consistent with conduction abnormality. There is no evidence of significant pericardial effusion. Signed by : Kenia Shepherd, Electronically Approved : 05/03/2019 16:49:38 DICTATED and SIGNED BY: KENIA SHEPHERD MD DATE: 05/03/19 1523 Single AP view of the chest. Comparison: 02/27/2020. Indication: Vomiting and diarrhea Findings: 3-lead left subclavian pacemaker is reidentified and is stable. The heart is enlarged but stable. There is no pneumothorax or effusion. Persistent patchy airspace disease and trace effusions. Impression: 1. Findings again suggest volume overload with cardiomegaly. Trace effusions are reidentified. Electronically signed by: Bryson Marshall MD (03/06/2020 12:41 PM) [id number] DICTATED and SIGNED BY: BRYSON MARSHALL MD DATE: 03/06/20 1241 Images Images DPOA REVIEW 19 MIN to patient portal What Is a Power of Multimedia Journalist? A power of civil rights attorney (POA) is a legal document giving one person (the agent or [id number]) the power to act for another person (the principal). The agent can have broad legal authority or limited authority to make legal decisions about the principal's property, finances or medical care. The power of civil rights attorney is frequently used in the event of a principal's illness or disability, or when the principal can't be present to sign necessary legal documents for financial transactions. A power of civil rights attorney can end for a number of reasons, such as when the principal dies, the principal revokes it, a court invalidates it, the principal divorces their spouse, who happens to be the agent, or the agent can no longer carry out the outlined responsibilities. Conventional POAs lapse when the creator becomes incapacitated, but a durable POA remains in force to enable the agent to manage the creators affairs, and a springing POA comes into effect only if and when the creator of the POA becomes incapacitated. A medical or healthcare POA enables an agent to make medical decisions on behalf of an incapacitated person. Marx Takeaways A power of civil rights attorney (POA) is a legal document giving one person, the agent or [id number]-zoaw the power to act for another person, the principal. The agent can have broad legal authority or limited authority to make decisions about the principal's property, finances or medical care. The power of civil rights attorney is often used when a principal becomes ill or disabled, or when they can't be present to sign necessary legal documents for financial transactions. Understanding Power of Multimedia Journalist A power of civil rights attorney should be considered when planning for long-term care. There are different types of POAs that fall under either a general power of civil rights attorney or limited power of civil rights attorney. A general power of civil rights attorney acts on behalf of the principal in any and all matters, as allowed by the state. The agent under a general POA agreement may be authorized to take care of issues such as handling bank accounts, signing checks, selling property and assets like stocks, f A limited power of civil rights attorney gives the agent the power to act on behalf of the principal in specific matters or events. For example, the limited POA may explicitly state that the agent is only allowed to manage the principal's shelter accounts. A limited POA may also be limited to a specific period of time (e.g., if the principal will be out of the country for, say, two years). Most [place] of civil rights attorney documents allow an agent to represent the principal in all property and financial matters as long as the principals mental state of mind is good. If a situation occurs where the principal becomes incapable of making decisions for him or herself, the POA agreement would automatically end. However, someone who wants the POA to remain in effect after the persons health deteriorates would need to sign a durable power of civil rights attorney (DPOA). What is an advance directive? An advance directive is a legal document that says how you want to be cared for if you are unable to make decisions. You can include what medical treatments you would want and who you would trust to make decisions for you. An advance directive can also include other legal documents. A living will is a list of treatment preferences. It can be used to indicate whether you would want cardiopulmonary resuscitation (CPR), tube feedings, a breathing machine, or certain medicines, like antibiotics. The durable power of civil rights attorney for health care document identifies the person you would want to make medical decisions for you. This person is also called a proxy. Your proxy should be familiar with your values and wishes. How do I get started? You can get advance directive documents for your state from your doctor's office or from http://www.caringinfo.org. Review the forms, and ask your doctor if you have any questions. Pick a person to be your proxy, and talk it over with that person. VTE Prophylaxis Ordered VTE Prophylaxis Devices: Yes VTE Pharmacological Prophylaxi: Yes Assessment/Plan Assessment/Plan IMPRESSION Acute exac of CHF Findings cxr, suggest volume overload with cardiomegaly. Trace pleural effusions acute hypoxic respiratory failure Left ventricle systolic function is moderately impaired. recent echo Ejection Fraction is 20 %. Chronic respiratory failure, multifactorial secondary to chronic obstructive pulmonary disease and chronic heart failure. Acute on chronic systolic heart failure. Acute on chronic cor pulmonale. Chronic obstructive pulmonary disease, tobacco dependence, in remission. hx polysubstance use. including cocaine PLAN ADMIT cvc bed TELE Cardiology consult o2 support iv diuresis pulm consult iv diuresis duonebs qid dvt prophylaxis 75 min pt exam, chart review, > 50% of time spent with exam, chart review, pt care coordination Justifications for Admission Other Justification CHF vs COPD exacerbation hypoxic resp fail RANJITH RICHARDSON MD Mar 06, 2020 13:31
[2020-03-06 13:43] LABS: INFLUENZA A PATIENT NEGATIVE (NEGATIVE); INFLUENZA B PATIENT NEGATIVE (NEGATIVE)
[2020-03-06 13:50] LABS: % ATYL 1 % (0-0); % BANDS 8 % (0-9); % LYMPHS 10 % (24-48); % MONOS 2 % (0-10); % SEGS 79 % (35-66)
[2020-03-06 13:51] LABS: ANISOCYTOSIS SLIGHT; PLT ESTIMATE DECREASED (ADEQUATE)
[2020-03-06 13:52] LABS: OVALOCYTES MOD
[2020-03-06 17:11] LABS: BILIRUBIN,URINE NEGATIVE (NEG); CLARITY,URINE CLEAR; COLOR,URINE YELLOW; NITRITE,URINE NEGATIVE (NEG); PROTEIN,URINE 30 mg/dL (NEG-TRACE); UROBILINOGEN,URINE 0.2 mg/dL (0.2 mg/dL)
[2020-03-06 17:19] LABS: BACTERIA,URINE 0 /HPF (0-FEW); WBC,URINE 0 /HPF (0-4)
[2020-03-06 17:35] VITALS: BP 138/99
[2020-03-06] MEDS ORDERED: ANTI-COAG MONITOR BY PHARMACY. MC PRN (18:45)
[2020-03-06] MEDS ORDERED: NON FORMULARY ITEM (Albuterol Sulfate (Albuterol Sulfate Neb Soln) 0.63 MG) NEB PRN (19:15)
[2020-03-06] MEDS ORDERED: ONDANSETRON PF 4 MG/2 ML VIAL. IV PRN (19:30)
[2020-03-06] MEDS ORDERED: DOCUSATE SODIUM 100 MG CAPSULE. PO PRN (19:30)
[2020-03-06] MEDS ORDERED: ENOXAPARIN 40 MG/0.4 ML SYRINGE. SQ SCH (19:30)
[2020-03-06] MEDS ORDERED: ACETAMINOPHEN 325 MG TABLET. PO PRN (19:30)
[2020-03-06] MEDS ORDERED: 0.9 % SODIUM CHLORIDE 10 ML DISP.SYRIN. IV PRN (19:30)
[2020-03-06] MEDS ORDERED: SODIUM PHOSPHATES 19/7GM 133 ML ENEMA. PR PRN (19:30)
[2020-03-06] MEDS ORDERED: guaiFENesin ORAL 200 MG/10 ML LIQUID. PO PRN (19:30)
[2020-03-06] MEDS ORDERED: ALBUTEROL SULFATE 2.5 MG/3 ML NEBU. NEB PRN (19:30)
[2020-03-06 19:40] VITALS: BP 140/88
[2020-03-06] MEDS: IPRATRPIUM/ALBUTEROL 0.5/2.5MG 3 ML NEBU. NEB SCH (20:00)
[2020-03-06] MEDS: SIMVASTATIN 20 MG TABLET PO SCH (21:30)
[2020-03-06] MEDS: APIXABAN 5 MG TABLET. PO SCH (21:30)
[2020-03-06] MEDS: BUMETANIDE 1 MG TABLET. PO SCH (21:31)
[2020-03-06 23:02] VITALS: BP 130/92
[2020-03-07] VITALS (8 sets, daily range): BP systolic 127–158; BP diastolic 79–99
[2020-03-07] MEDS: IPRATRPIUM/ALBUTEROL 0.5/2.5MG 3 ML NEBU. NEB SCH ×6 (00:59→21:10)
[2020-03-07 08:19] LABS: BARBITURATES NEG (NEG); BENZODIAZEPINES NEG (NEG); CANNABINOIDS NEG (NEG); COCAINE NEG (NEG); METHADONE NEG (NEG); OPIATES NEG (NEG); PHENCYCLIDINE NEG (NEG)
[2020-03-07 08:22] LABS: AMPHETAMINE/METHAMPHETAMINE NEG (NEG)
[2020-03-07] MEDS: AMIODARONE HCL 200 MG TABLET. PO SCH (08:51)
[2020-03-07] MEDS: APIXABAN 5 MG TABLET. PO SCH ×2 (08:51→21:03)
[2020-03-07] MEDS: POTASSIUM CHLORIDE 20 MEQ TABLET.ER. PO SCH (08:51)
[2020-03-07] MEDS: BUMETANIDE 1 MG TABLET. PO SCH ×2 (08:51→21:03)
[2020-03-07] MEDS: NICOTINE 21MG PATCH. TD SCH (08:51)
[2020-03-07] MEDS: METOPROLOL SUCC 24HR ER 25 MG TAB.ER.24H. PO SCH (08:51)
[2020-03-07] MEDS: LISINOPRIL 20 MG TABLET PO SCH (08:52)
--- NOTE | 2020-03-07 09:00 | PDOC ---
[facility] PROGRESS NOTE Date of Service DOS: DATE: 03/07/20 TIME: 08:58 Chief Complaint Chief Complaint Acute on chronic systolic and diastolic heart failure Prior history of cocaine abuse Noncompliance Hypokalemia Anemia HTN Hyperlipidemia Asthma COPD History of Present Illness History of Present Illness 03/07/2020 Patient seen and examined Discussed with RN Chart reviewed Vitals/I&O Vitals/I&O: Vital Signs Date Time Temp Pulse Resp B/P (MAP) Pulse Ox O2 Delivery O2 Flow Rate FiO2 03/07/20 08:52 68 144/93 03/07/20 07:27 97.9 18 95 Nasal Cannula 8.0 97.9 I & O 0 03/06/20 03/06/20 03/07/20 15:00 23:00 07:00 Output Total 750 ml 300 ml Balance -750 ml -300 ml Physical Exam General: Alert, mild distress Heart: Regular rate, Other (S1-S2 soft S3) Lungs: Wheezing, Crackles, Other (On BiPAP) Abdomen: Soft Extremities: No cyanosis Skin: No rashes Labs Labs: Laboratory Tests Test 03/06/20 12:03 03/06/20 12:25 03/06/20 13:05 03/06/20 13:18 O2 Saturation 97 % (92-99) Arterial Blood pH 7.48 (7.35-7.45) Arterial Blood pCO2 at Patient Temp 35 mmHg (35-46) Arterial Blood pO2 at Patient Temp 93 mmHg (65-108) Arterial Blood HCO3 25 mmol/L (21-28) Arterial Blood Base Excess 2 mmol/L (-3-3) Oxyhemoglobin 96.1 % Methemoglobin 0.4 % (0.0-1.9) Carbon Monoxide, Quantitative 0.7 % (0.0-1.9) FiO2 40/5lnc White Blood Count 7.8 x10^3/uL (4.0-11.0) Red Blood Count 4.00 x10^6/uL (4.30-5.70) Hemoglobin 11.4 g/dL (13.0-17.5) Hematocrit 34.9 % (39.0-53.0) Mean Corpuscular Volume 87 fL (79-100) Mean Corpuscular Hemoglobin 29 pg (25-35) Mean Corpuscular Hemoglobin Concent 33 g/dL (31-37) Red Cell Distribution Width 16.8 % (11.5-14.5) Platelet Count 117 x10^3/uL (140-400) Neutrophils (%) (Auto) 86 % (31-73) Lymphocytes (%) (Auto) 6 % (24-48) Monocytes (%) (Auto) 7 % (0-9) Eosinophils (%) (Auto) 1 % (0-3) Basophils (%) (Auto) 1 % (0-3) Neutrophils # (Auto) 6.7 x10^3/uL (1.8-7.7) Lymphocytes # (Auto) 0.5 x10^3/uL (1.0-4.8) Monocytes # (Auto) 0.5 x10^3/uL (0.0-1.1) Eosinophils # (Auto) 0.0 x10^3/uL (0.0-0.7) Basophils # (Auto) 0.1 x10^3/uL (0.0-0.2) Segmented Neutrophils % 79 % (35-66) Band Neutrophils % 8 % (0-9) Lymphocytes % 10 % (24-48) Atypical Lymphocytes % (Manual) 1 % (0-0) Monocytes % 2 % (0-10) Platelet Estimate Decreased (ADEQUATE) Anisocytosis Slight Ovalocytes Mod Sodium Level 140 mmol/L (136-145) Potassium Level 3.3 mmol/L (3.5-5.1) Chloride Level 104 mmol/L (98-107) Carbon Dioxide Level 31 mmol/L (21-32) Anion Gap 5 (6-14) Blood Urea Nitrogen 25 mg/dL (8-26) Creatinine 1.4 mg/dL (0.7-1.3) Estimated GFR (Cockcroft-Gault) 61.9 BUN/Creatinine Ratio 18 (6-20) Glucose Level 103 mg/dL (70-99) Calcium Level 9.7 mg/dL (8.5-10.1) Magnesium Level 2.2 mg/dL (1.8-2.4) Total Bilirubin 1.3 mg/dL (0.2-1.0) Aspartate Amino Transf (AST/SGOT) 21 U/L (15-37) Alanine Aminotransferase (ALT/SGPT) 19 U/L (16-63) Alkaline Phosphatase 47 U/L (46-116) Creatine Kinase 166 U/L (39-308) Creatine Kinase MB (Mass) 3.2 ng/mL (0.0-3.6) Creatine Kinase MB Relative Index 1.9 % (0-4) Troponin I Quantitative 0.201 ng/mL (0.000-0.055) LU-Aiw-I-Type Natriuretic Peptide 79204 pg/mL (0-124) Total Protein 7.1 g/dL (6.4-8.2) Albumin 3.5 g/dL (3.4-5.0) Albumin/Globulin Ratio 1.0 (1.0-1.7) Lipase 37 U/L (73-393) Influenza Type A Antigen Negative (NEGATIVE) Influenza Type B Antigen Negative (NEGATIVE) SARS-CoV-2 Antigen (Rapid) Negative (NEGATIVE) Coronavirus (COVID-19)(PCR) Negative (NEGATIVE) Test 03/06/20 16:40 03/06/20 19:09 03/07/20 00:39 Urine Collection Type Unknown Urine Color Yellow Urine Clarity Clear Urine pH 7.0 (<5.0-8.0) Urine Specific [place] 1.010 (1.000-1.030) Urine Protein 30 mg/dL (NEG-TRACE) Urine Glucose (UA) Negative mg/dL (NEG) Urine Ketones (Stick) Negative mg/dL (NEG) Urine Blood Negative (NEG) Urine Nitrite Negative (NEG) Urine Bilirubin Negative (NEG) Urine Urobilinogen Dipstick 0.2 mg/dL (0.2 mg/dL) Urine Leukocyte Esterase Negative (NEG) Urine RBC 3-5 /HPF (0-2) Urine WBC 0 /HPF (0-4) Urine Squamous Epithelial Cells Few /LPF Urine Bacteria 0 /HPF (0-FEW) Urine Opiates Screen Neg (NEG) Urine Methadone Screen Neg (NEG) Urine Barbiturates Neg (NEG) Urine Phencyclidine Screen Neg (NEG) Urine Amphetamine/Methamphetamine Neg (NEG) Urine Benzodiazepines Screen Neg (NEG) Urine Cocaine Screen Neg (NEG) Urine Cannabinoids Screen Neg (NEG) Urine Ethyl Alcohol Neg (NEG) Troponin I Quantitative 0.240 ng/mL (0.000-0.055) 0.205 ng/mL (0.000-0.055) Review of Systems Review of Systems: Complains of shortness of breath complains of weakness Assessment and Plan Assessmemt and Plan Problems Medical Problems: (1) CHF exacerbation Status: Acute (2) Dyspnea Status: Acute (3) Elevated troponin Status: Acute Acute on chronic systolic and diastolic heart failure Prior history of cocaine abuse Noncompliance Hypokalemia Anemia HTN Hyperlipidemia Asthma COPD Plan Cardiac monitoring Serial enzymes Serial EKGs Consult cardiology IV Lasix Home meds DVT prophylaxis Full code Trend labs Long-term prognosis guarded Comment Review of Relevant I have reviewed the following items rishi (where applicable) has been applied. Medications: Current Medications Medications (Trade) Dose Ordered Sig/Dex Route PRN Reason Start Time Stop Time Status Last Admin Dose Admin Bumetanide (Bumex) 1 mg 1X ONCE IV 03/06/20 13:15 03/06/20 13:16 DC 03/06/20 13:15 Aspirin (Catarina Aspirin) 325 mg 1X ONCE PO 03/06/20 13:30 03/06/20 13:38 DC 03/06/20 13:30 Apixaban (Eliquis) 5 mg BID PO 03/06/20 21:00 03/07/20 08:51 Amiodarone HCl (Cordarone) 200 mg DAILY PO 03/07/20 09:00 03/07/20 08:51 Bumetanide (Bumex) 1 mg BID PO 03/06/20 21:00 03/07/20 08:51 Albuterol/ Ipratropium (Duoneb) 3 ml Q4HRS NEB 03/06/20 20:00 03/07/20 07:25 Lisinopril (Prinivil) 20 mg DAILY PO 03/07/20 09:00 03/07/20 08:52 Metoprolol Succinate (Toprol Xl) 25 mg DAILY PO 03/07/20 09:00 03/07/20 08:51 Nicotine (Nicoderm Cq 21mg) 1 patch DAILY TD 03/07/20 09:00 03/07/20 08:51 Potassium Chloride (Klor-Con) 20 meq DAILY PO 03/07/20 09:00 03/07/20 08:51 Simvastatin (Zocor) 20 mg HS PO 03/06/20 21:00 03/06/20 21:30 Enoxaparin Sodium (Lovenox 40mg Syringe) 40 mg Q24H SQ 03/06/20 19:30 03/07/20 08:18 DC 03/06/20 21:32 Justifications for Admission Other Justification CHF vs COPD exacerbation hypoxic resp fail KINA CONTRERAS III DO Mar 07, 2020 09:00
[2020-03-07 09:11] LABS: BASO % 1 % (0-3); EOS # 0.1 x10^3/uL (0.0-0.7); EOS % 2 % (0-3); HEMATOCRIT 34.7 % (39.0-53.0); HEMOGLOBIN 11.1 g/dL (13.0-17.5); LYMPH # 0.7 x10^3/uL (1.0-4.8); LYMPH % 10 % (24-48); MEAN CORPUSCULAR HEMOGLOBIN 28 pg (25-35); MEAN CORPUSCULAR HGB CONC 32 g/dL (31-37); MEAN CORPUSCULAR VOLUME 88 fL (79-100); MONO # 0.5 x10^3/uL (0.0-1.1); MONO % 8 % (0-9); NEUT # 5.3 x10^3/uL (1.8-7.7); NEUT % 79 % (31-73); PLATELET COUNT 125 x10^3/uL (140-400); RED BLOOD COUNT 3.94 x10^6/uL (4.30-5.70); RED CELL DISTRIBUTION WIDTH 16.7 % (11.5-14.5); WHITE BLOOD COUNT 6.7 x10^3/uL (4.0-11.0)
[2020-03-07 09:17] LABS: ALBUMIN 3.2 g/dL (3.4-5.0); ALBUMIN/GLOBULIN RATIO 1.1 (1.0-1.7); CALCIUM 9.8 mg/dL (8.5-10.1); CREATININE 1.7 mg/dL (0.7-1.3); GFR 49.5; POTASSIUM 3.7 mmol/L (3.5-5.1); TOTAL BILIRUBIN 1.2 mg/dL (0.2-1.0); TOTAL PROTEIN 6.2 g/dL (6.4-8.2)
[2020-03-07] MEDS ORDERED: BUMETANIDE 1 MG/4 ML VIAL. IV ONE (10:45)
[2020-03-07] MEDS: MILRINONE 20MG/100ML PREMIX 100 ML IV PRN ×2 (11:25→23:52)
--- NOTE | 2020-03-07 12:37 | PDOC ---
LORRAINE VILLEGAS [employer]S SALES COUNTERPERSON 03/07/20 1236: CARDIO Progress Notes Date and Time Date of Service 03/07/2020 Time of Evaluation 1140 Subjective Subjective: No Chest Pain, No Palpitations, Other ( Still SOA) Vitals Vitals Vital Signs Date Time Temp Pulse Resp B/P (MAP) Pulse Ox O2 Delivery O2 Flow Rate FiO2 03/07/20 11:28 98 Nasal Cannula 8.0 03/07/20 08:52 68 144/93 03/07/20 07:27 97.9 18 97.9 Weight Weight [ ] Input and Output Intake and Output Intake and Output 03/07/20 07:00 Output Total 1050 ml Balance -1050 ml Output Urine Total 1050 ml Laboratory Labs Laboratory Tests Test 03/06/20 12:25 03/06/20 13:05 03/06/20 13:18 03/06/20 16:40 White Blood Count 7.8 x10^3/uL (4.0-11.0) Red Blood Count 4.00 x10^6/uL (4.30-5.70) Hemoglobin 11.4 g/dL (13.0-17.5) Hematocrit 34.9 % (39.0-53.0) Mean Corpuscular Volume 87 fL (79-100) Mean Corpuscular Hemoglobin 29 pg (25-35) Mean Corpuscular Hemoglobin Concent 33 g/dL (31-37) Red Cell Distribution Width 16.8 % (11.5-14.5) Platelet Count 117 x10^3/uL (140-400) Neutrophils (%) (Auto) 86 % (31-73) Lymphocytes (%) (Auto) 6 % (24-48) Monocytes (%) (Auto) 7 % (0-9) Eosinophils (%) (Auto) 1 % (0-3) Basophils (%) (Auto) 1 % (0-3) Neutrophils # (Auto) 6.7 x10^3/uL (1.8-7.7) Lymphocytes # (Auto) 0.5 x10^3/uL (1.0-4.8) Monocytes # (Auto) 0.5 x10^3/uL (0.0-1.1) Eosinophils # (Auto) 0.0 x10^3/uL (0.0-0.7) Basophils # (Auto) 0.1 x10^3/uL (0.0-0.2) Segmented Neutrophils % 79 % (35-66) Band Neutrophils % 8 % (0-9) Lymphocytes % 10 % (24-48) Atypical Lymphocytes % (Manual) 1 % (0-0) Monocytes % 2 % (0-10) Platelet Estimate Decreased (ADEQUATE) Anisocytosis Slight Ovalocytes Mod Sodium Level 140 mmol/L (136-145) Potassium Level 3.3 mmol/L (3.5-5.1) Chloride Level 104 mmol/L (98-107) Carbon Dioxide Level 31 mmol/L (21-32) Anion Gap 5 (6-14) Blood Urea Nitrogen 25 mg/dL (8-26) Creatinine 1.4 mg/dL (0.7-1.3) Estimated GFR (Cockcroft-Gault) 61.9 BUN/Creatinine Ratio 18 (6-20) Glucose Level 103 mg/dL (70-99) Calcium Level 9.7 mg/dL (8.5-10.1) Magnesium Level 2.2 mg/dL (1.8-2.4) Total Bilirubin 1.3 mg/dL (0.2-1.0) Aspartate Amino Transf (AST/SGOT) 21 U/L (15-37) Alanine Aminotransferase (ALT/SGPT) 19 U/L (16-63) Alkaline Phosphatase 47 U/L (46-116) Creatine Kinase 166 U/L (39-308) Creatine Kinase MB (Mass) 3.2 ng/mL (0.0-3.6) Creatine Kinase MB Relative Index 1.9 % (0-4) Troponin I Quantitative 0.201 ng/mL (0.000-0.055) ID-Mkl-V-Type Natriuretic Peptide 33790 pg/mL (0-124) Total Protein 7.1 g/dL (6.4-8.2) Albumin 3.5 g/dL (3.4-5.0) Albumin/Globulin Ratio 1.0 (1.0-1.7) Lipase 37 U/L (73-393) Influenza Type A Antigen Negative (NEGATIVE) Influenza Type B Antigen Negative (NEGATIVE) SARS-CoV-2 Antigen (Rapid) Negative (NEGATIVE) Coronavirus (COVID-19)(PCR) Negative (NEGATIVE) Urine Collection Type Unknown Urine Color Yellow Urine Clarity Clear Urine pH 7.0 (<5.0-8.0) Urine Specific [place] 1.010 (1.000-1.030) Urine Protein 30 mg/dL (NEG-TRACE) Urine Glucose (UA) Negative mg/dL (NEG) Urine Ketones (Stick) Negative mg/dL (NEG) Urine Blood Negative (NEG) Urine Nitrite Negative (NEG) Urine Bilirubin Negative (NEG) Urine Urobilinogen Dipstick 0.2 mg/dL (0.2 mg/dL) Urine Leukocyte Esterase Negative (NEG) Urine RBC 3-5 /HPF (0-2) Urine WBC 0 /HPF (0-4) Urine Squamous Epithelial Cells Few /LPF Urine Bacteria 0 /HPF (0-FEW) Urine Opiates Screen Neg (NEG) Urine Methadone Screen Neg (NEG) Urine Barbiturates Neg (NEG) Urine Phencyclidine Screen Neg (NEG) Urine Amphetamine/Methamphetamine Neg (NEG) Urine Benzodiazepines Screen Neg (NEG) Urine Cocaine Screen Neg (NEG) Urine Cannabinoids Screen Neg (NEG) Urine Ethyl Alcohol Neg (NEG) Test 03/06/20 19:09 03/07/20 00:39 03/07/20 08:15 Troponin I Quantitative 0.240 ng/mL (0.000-0.055) 0.205 ng/mL (0.000-0.055) 0.195 ng/mL (0.000-0.055) White Blood Count 6.7 x10^3/uL (4.0-11.0) Red Blood Count 3.94 x10^6/uL (4.30-5.70) Hemoglobin 11.1 g/dL (13.0-17.5) Hematocrit 34.7 % (39.0-53.0) Mean Corpuscular Volume 88 fL (79-100) Mean Corpuscular Hemoglobin 28 pg (25-35) Mean Corpuscular Hemoglobin Concent 32 g/dL (31-37) Red Cell Distribution Width 16.7 % (11.5-14.5) Platelet Count 125 x10^3/uL (140-400) Neutrophils (%) (Auto) 79 % (31-73) Lymphocytes (%) (Auto) 10 % (24-48) Monocytes (%) (Auto) 8 % (0-9) Eosinophils (%) (Auto) 2 % (0-3) Basophils (%) (Auto) 1 % (0-3) Neutrophils # (Auto) 5.3 x10^3/uL (1.8-7.7) Lymphocytes # (Auto) 0.7 x10^3/uL (1.0-4.8) Monocytes # (Auto) 0.5 x10^3/uL (0.0-1.1) Eosinophils # (Auto) 0.1 x10^3/uL (0.0-0.7) Basophils # (Auto) 0.0 x10^3/uL (0.0-0.2) Sodium Level 144 mmol/L (136-145) Potassium Level 3.7 mmol/L (3.5-5.1) Chloride Level 106 mmol/L (98-107) Carbon Dioxide Level 34 mmol/L (21-32) Anion Gap 4 (6-14) Blood Urea Nitrogen 24 mg/dL (8-26) Creatinine 1.7 mg/dL (0.7-1.3) Estimated GFR (Cockcroft-Gault) 49.5 BUN/Creatinine Ratio 14 (6-20) Glucose Level 83 mg/dL (70-99) Calcium Level 9.8 mg/dL (8.5-10.1) Total Bilirubin 1.2 mg/dL (0.2-1.0) Aspartate Amino Transf (AST/SGOT) 20 U/L (15-37) Alanine Aminotransferase (ALT/SGPT) 21 U/L (16-63) Alkaline Phosphatase 49 U/L (46-116) Total Protein 6.2 g/dL (6.4-8.2) Albumin 3.2 g/dL (3.4-5.0) Albumin/Globulin Ratio 1.1 (1.0-1.7) Physical Exam HEENT: Neck Supple W Full Motion Chest: Symmetric LUNGS: Other (diffuse crackles) Heart: RRR (Vpaced) Abdomen: Soft N/T Extremities: Other (3+pitting edema) Neurology: alert, oriented, follow commands Assessment Assessment HPI: This is a 64 yo male admitted for complains of SOA. Reports that the day after his discharge he started becoming progressively SOA. Increasing leg edema, wheezing with nonproductive cough. Reports that he did missed one day of bumex due to failure to fill his meds but has been compliant otherwise. Denies any chest pain. No palpitations. No falls or passing out. He has been successful in abstaining from tobacco and cocaine. Presently he is still SOA. 1. Acute on chronic respiratory failure COPD and CHF 2. Acute on chronic systolic/diastolic CHF: interrogation revealed still fluid overloaded 3. SSS/ NICM s/p BiV PPM/HOME CARE ADMINISTRATOR-P (Biotronik); LVEF 20-25%. Recent device check revealed 31% AFIB burden with no significant RVR episodes since amiodarone. normal function, BiV pacing 100% 4. Chronic mild troponin elevation; peak 0.153 with h/o chronic troponin elevation. Type II. demand ischemia. CP free. 5. PAFIB; V paced with underlying AFIB 6. HTN: controlled 7. ASHLEY on CKD3 8. Tobaccoism, chronic substance abuse; cocaine and marijuana use. Has been cocaine and tobacco free since last admission 9. COPD 10. NSVT Recommendations 1. Amiodarone for rhythm maintenance. Eliquis for stroke prevention. Possibly hold. No recent workup, given his refractory HF episodes, will consider for inpt ischemic w/u. will discuss with [facility] money manager 2. Goal wt is 85 KG. Start on milrinone and diurese with lasix 3. Secondary prevention measures. 4. 2Gm Na diet, 2000cc FR. Standing wt 5. Will need referral to HF clinic Justicifation of Admission Dx: Justifications for Admission: Justification of Admission Dx: Yes Respiratory Failure: Severe Resp Distress CLAUDE LAUREANO MD 03/07/20 1608: CARDIO Progress Notes Assessment Assessment Patient seen and examined I agree with our nurse practitioners assessment and plan as above. Acute on chronic respiratory failure COPD and CHF. The patient is feeling better this morning. Recurrent episodes of heart failure. Will treat with milrinone and diuretics with close monitoring of lab. Acute on chronic systolic/diastolic CHF: Diuresis as above. Evaluation in heart failure clinic. SSS/ NICM s/p BiV PPM/HOME CARE ADMINISTRATOR-P (Biotronik); LVEF 20-25%. Recent device check revealed 31% AFIB burden with no significant RVR episodes since amiodarone. normal function, BiV pacing 100% Chronic mild troponin elevation; peak 0.153 with h/o chronic troponin elevation. Type II. demand ischemia. CP free. PAFIB; V paced with underlying AFIB HTN: controlled ASHLEY on CKD3 Tobaccoism, chronic substance abuse; cocaine and marijuana use. Has been cocaine and tobacco free since last admission COPD. Continue baseline medications. Followed by pulmonary. NSVT. Rhythm stable. Continue to monitor. LORRAINE VILLEGAS APRN Mar 07, 2020 12:36 CLAUDE LAUREANO MD Mar 07, 2020 16:08
--- NOTE | 2020-03-07 13:29 | NUR ---
SS following for discharge planning. SS reviewed pt chart and discussed with pt RN. Pt is from home and is currently requiring oxygen at eight liters. COVID19 negative. Pt has home oxygen and Trilogy machine through [employer]. Pt was on services with [facility]. PT recommended detention unit. SS met with pt to discuss discharge planning and detention unit. Pt agreeable to detention unit and reported no preference of company. [facility] unable to accommodate more than five liters of oxygen. SS phoned and faxed referral to [facility], ; fax [phone]. SS will await acceptance decision and insurance determination and will proceed accordingly with discharge planning.
--- NOTE | 2020-03-07 13:46 | PDOC ---
PULMONARY PROGRESS NOTES DATE: 03/07/20 TIME: 13:45 Vitals Vital Signs Date Time Temp Pulse Resp B/P (MAP) Pulse Ox O2 Delivery O2 Flow Rate FiO2 03/07/20 11:28 98 Nasal Cannula 8.0 03/07/20 11:00 98.3 69 20 134/86 (102) 98.3 General: Alert, Oriented X4, No acute distress HEENT: Other Lungs: Wheezing, Crackles, Other (On BiPAP) Cardiovascular: S1, S2 Abdomen: Soft, Non-tender, Other Extremities: Other Labs Laboratory Tests Test 03/06/20 12:03 03/06/20 12:25 03/06/20 13:05 03/06/20 13:18 O2 Saturation 97 % (92-99) Arterial Blood pH 7.48 (7.35-7.45) Arterial Blood pCO2 at Patient Temp 35 mmHg (35-46) Arterial Blood pO2 at Patient Temp 93 mmHg (65-108) Arterial Blood HCO3 25 mmol/L (21-28) Arterial Blood Base Excess 2 mmol/L (-3-3) Oxyhemoglobin 96.1 % Methemoglobin 0.4 % (0.0-1.9) Carbon Monoxide, Quantitative 0.7 % (0.0-1.9) FiO2 40/5lnc White Blood Count 7.8 x10^3/uL (4.0-11.0) Red Blood Count 4.00 x10^6/uL (4.30-5.70) Hemoglobin 11.4 g/dL (13.0-17.5) Hematocrit 34.9 % (39.0-53.0) Mean Corpuscular Volume 87 fL (79-100) Mean Corpuscular Hemoglobin 29 pg (25-35) Mean Corpuscular Hemoglobin Concent 33 g/dL (31-37) Red Cell Distribution Width 16.8 % (11.5-14.5) Platelet Count 117 x10^3/uL (140-400) Neutrophils (%) (Auto) 86 % (31-73) Lymphocytes (%) (Auto) 6 % (24-48) Monocytes (%) (Auto) 7 % (0-9) Eosinophils (%) (Auto) 1 % (0-3) Basophils (%) (Auto) 1 % (0-3) Neutrophils # (Auto) 6.7 x10^3/uL (1.8-7.7) Lymphocytes # (Auto) 0.5 x10^3/uL (1.0-4.8) Monocytes # (Auto) 0.5 x10^3/uL (0.0-1.1) Eosinophils # (Auto) 0.0 x10^3/uL (0.0-0.7) Basophils # (Auto) 0.1 x10^3/uL (0.0-0.2) Segmented Neutrophils % 79 % (35-66) Band Neutrophils % 8 % (0-9) Lymphocytes % 10 % (24-48) Atypical Lymphocytes % (Manual) 1 % (0-0) Monocytes % 2 % (0-10) Platelet Estimate Decreased (ADEQUATE) Anisocytosis Slight Ovalocytes Mod Sodium Level 140 mmol/L (136-145) Potassium Level 3.3 mmol/L (3.5-5.1) Chloride Level 104 mmol/L (98-107) Carbon Dioxide Level 31 mmol/L (21-32) Anion Gap 5 (6-14) Blood Urea Nitrogen 25 mg/dL (8-26) Creatinine 1.4 mg/dL (0.7-1.3) Estimated GFR (Cockcroft-Gault) 61.9 BUN/Creatinine Ratio 18 (6-20) Glucose Level 103 mg/dL (70-99) Calcium Level 9.7 mg/dL (8.5-10.1) Magnesium Level 2.2 mg/dL (1.8-2.4) Total Bilirubin 1.3 mg/dL (0.2-1.0) Aspartate Amino Transf (AST/SGOT) 21 U/L (15-37) Alanine Aminotransferase (ALT/SGPT) 19 U/L (16-63) Alkaline Phosphatase 47 U/L (46-116) Creatine Kinase 166 U/L (39-308) Creatine Kinase MB (Mass) 3.2 ng/mL (0.0-3.6) Creatine Kinase MB Relative Index 1.9 % (0-4) Troponin I Quantitative 0.201 ng/mL (0.000-0.055) UI-Mex-B-Type Natriuretic Peptide 76907 pg/mL (0-124) Total Protein 7.1 g/dL (6.4-8.2) Albumin 3.5 g/dL (3.4-5.0) Albumin/Globulin Ratio 1.0 (1.0-1.7) Lipase 37 U/L (73-393) Influenza Type A Antigen Negative (NEGATIVE) Influenza Type B Antigen Negative (NEGATIVE) SARS-CoV-2 Antigen (Rapid) Negative (NEGATIVE) Coronavirus (COVID-19)(PCR) Negative (NEGATIVE) Test 03/06/20 16:40 03/06/20 19:09 03/07/20 00:39 03/07/20 08:15 Urine Collection Type Unknown Urine Color Yellow Urine Clarity Clear Urine pH 7.0 (<5.0-8.0) Urine Specific [place] 1.010 (1.000-1.030) Urine Protein 30 mg/dL (NEG-TRACE) Urine Glucose (UA) Negative mg/dL (NEG) Urine Ketones (Stick) Negative mg/dL (NEG) Urine Blood Negative (NEG) Urine Nitrite Negative (NEG) Urine Bilirubin Negative (NEG) Urine Urobilinogen Dipstick 0.2 mg/dL (0.2 mg/dL) Urine Leukocyte Esterase Negative (NEG) Urine RBC 3-5 /HPF (0-2) Urine WBC 0 /HPF (0-4) Urine Squamous Epithelial Cells Few /LPF Urine Bacteria 0 /HPF (0-FEW) Urine Opiates Screen Neg (NEG) Urine Methadone Screen Neg (NEG) Urine Barbiturates Neg (NEG) Urine Phencyclidine Screen Neg (NEG) Urine Amphetamine/Methamphetamine Neg (NEG) Urine Benzodiazepines Screen Neg (NEG) Urine Cocaine Screen Neg (NEG) Urine Cannabinoids Screen Neg (NEG) Urine Ethyl Alcohol Neg (NEG) Troponin I Quantitative 0.240 ng/mL (0.000-0.055) 0.205 ng/mL (0.000-0.055) 0.195 ng/mL (0.000-0.055) White Blood Count 6.7 x10^3/uL (4.0-11.0) Red Blood Count 3.94 x10^6/uL (4.30-5.70) Hemoglobin 11.1 g/dL (13.0-17.5) Hematocrit 34.7 % (39.0-53.0) Mean Corpuscular Volume 88 fL (79-100) Mean Corpuscular Hemoglobin 28 pg (25-35) Mean Corpuscular Hemoglobin Concent 32 g/dL (31-37) Red Cell Distribution Width 16.7 % (11.5-14.5) Platelet Count 125 x10^3/uL (140-400) Neutrophils (%) (Auto) 79 % (31-73) Lymphocytes (%) (Auto) 10 % (24-48) Monocytes (%) (Auto) 8 % (0-9) Eosinophils (%) (Auto) 2 % (0-3) Basophils (%) (Auto) 1 % (0-3) Neutrophils # (Auto) 5.3 x10^3/uL (1.8-7.7) Lymphocytes # (Auto) 0.7 x10^3/uL (1.0-4.8) Monocytes # (Auto) 0.5 x10^3/uL (0.0-1.1) Eosinophils # (Auto) 0.1 x10^3/uL (0.0-0.7) Basophils # (Auto) 0.0 x10^3/uL (0.0-0.2) Sodium Level 144 mmol/L (136-145) Potassium Level 3.7 mmol/L (3.5-5.1) Chloride Level 106 mmol/L (98-107) Carbon Dioxide Level 34 mmol/L (21-32) Anion Gap 4 (6-14) Blood Urea Nitrogen 24 mg/dL (8-26) Creatinine 1.7 mg/dL (0.7-1.3) Estimated GFR (Cockcroft-Gault) 49.5 BUN/Creatinine Ratio 14 (6-20) Glucose Level 83 mg/dL (70-99) Calcium Level 9.8 mg/dL (8.5-10.1) Total Bilirubin 1.2 mg/dL (0.2-1.0) Aspartate Amino Transf (AST/SGOT) 20 U/L (15-37) Alanine Aminotransferase (ALT/SGPT) 21 U/L (16-63) Alkaline Phosphatase 49 U/L (46-116) Total Protein 6.2 g/dL (6.4-8.2) Albumin 3.2 g/dL (3.4-5.0) Albumin/Globulin Ratio 1.1 (1.0-1.7) Laboratory Tests Test 03/06/20 16:40 03/06/20 19:09 03/07/20 00:39 03/07/20 08:15 Urine Collection Type Unknown Urine Color Yellow Urine Clarity Clear Urine pH 7.0 (<5.0-8.0) Urine Specific [place] 1.010 (1.000-1.030) Urine Protein 30 mg/dL (NEG-TRACE) Urine Glucose (UA) Negative mg/dL (NEG) Urine Ketones (Stick) Negative mg/dL (NEG) Urine Blood Negative (NEG) Urine Nitrite Negative (NEG) Urine Bilirubin Negative (NEG) Urine Urobilinogen Dipstick 0.2 mg/dL (0.2 mg/dL) Urine Leukocyte Esterase Negative (NEG) Urine RBC 3-5 /HPF (0-2) Urine WBC 0 /HPF (0-4) Urine Squamous Epithelial Cells Few /LPF Urine Bacteria 0 /HPF (0-FEW) Urine Opiates Screen Neg (NEG) Urine Methadone Screen Neg (NEG) Urine Barbiturates Neg (NEG) Urine Phencyclidine Screen Neg (NEG) Urine Amphetamine/Methamphetamine Neg (NEG) Urine Benzodiazepines Screen Neg (NEG) Urine Cocaine Screen Neg (NEG) Urine Cannabinoids Screen Neg (NEG) Urine Ethyl Alcohol Neg (NEG) Troponin I Quantitative 0.240 ng/mL (0.000-0.055) 0.205 ng/mL (0.000-0.055) 0.195 ng/mL (0.000-0.055) White Blood Count 6.7 x10^3/uL (4.0-11.0) Red Blood Count 3.94 x10^6/uL (4.30-5.70) Hemoglobin 11.1 g/dL (13.0-17.5) Hematocrit 34.7 % (39.0-53.0) Mean Corpuscular Volume 88 fL (79-100) Mean Corpuscular Hemoglobin 28 pg (25-35) Mean Corpuscular Hemoglobin Concent 32 g/dL (31-37) Red Cell Distribution Width 16.7 % (11.5-14.5) Platelet Count 125 x10^3/uL (140-400) Neutrophils (%) (Auto) 79 % (31-73) Lymphocytes (%) (Auto) 10 % (24-48) Monocytes (%) (Auto) 8 % (0-9) Eosinophils (%) (Auto) 2 % (0-3) Basophils (%) (Auto) 1 % (0-3) Neutrophils # (Auto) 5.3 x10^3/uL (1.8-7.7) Lymphocytes # (Auto) 0.7 x10^3/uL (1.0-4.8) Monocytes # (Auto) 0.5 x10^3/uL (0.0-1.1) Eosinophils # (Auto) 0.1 x10^3/uL (0.0-0.7) Basophils # (Auto) 0.0 x10^3/uL (0.0-0.2) Sodium Level 144 mmol/L (136-145) Potassium Level 3.7 mmol/L (3.5-5.1) Chloride Level 106 mmol/L (98-107) Carbon Dioxide Level 34 mmol/L (21-32) Anion Gap 4 (6-14) Blood Urea Nitrogen 24 mg/dL (8-26) Creatinine 1.7 mg/dL (0.7-1.3) Estimated GFR (Cockcroft-Gault) 49.5 BUN/Creatinine Ratio 14 (6-20) Glucose Level 83 mg/dL (70-99) Calcium Level 9.8 mg/dL (8.5-10.1) Total Bilirubin 1.2 mg/dL (0.2-1.0) Aspartate Amino Transf (AST/SGOT) 20 U/L (15-37) Alanine Aminotransferase (ALT/SGPT) 21 U/L (16-63) Alkaline Phosphatase 49 U/L (46-116) Total Protein 6.2 g/dL (6.4-8.2) Albumin 3.2 g/dL (3.4-5.0) Albumin/Globulin Ratio 1.1 (1.0-1.7) Medications Active Scripts Medications Dose Route/Sig Max Daily Dose Days Date Category Dose Instructions Bumetanide 1 Mg Tablet 1 Mg PO BID 03/04/20 Rx Amiodarone Hcl 200 Mg Tablet 200 Mg PO DAILY 03/04/20 Rx Potassium Chloride (Potassium Chloride) 20 Meq Tablet.er 20 Meq PO DAILY 30 02/02/20 Rx NICODERM CQ 21mg (Nicotine) 1 Each Patch.td24 1 Patch TP DAILY 01/28/20 Reported Eliquis (Apixaban) 5 Mg Tablet 5 Mg PO BID 08/02/19 Reported Toprol Xl (Metoprolol Succinate) 25 Mg Tab.er.24h 1 Tab PO DAILY 30 08/02/19 Reported Lisinopril 40 Mg Tablet 20 Mg PO DAILY 30 05/10/19 Rx Duoneb 0.5-3(2.5) Mg/3 Ml (Albuterol/Ipratropium) 3 Ml Ampul.neb 3 Ml NEB Q4HRS 30 05/09/19 Rx Albuterol Sulfate Neb Soln (Albuterol Sulfate) 0.63 Mg/3 Ml Vial.neb 0.63 Mg NEB PRN Q4HRS PRN 30 10/13/16 Rx NEEDED Zocor (Simvastatin) 20 Mg Tablet 20 Mg PO HS 10/27/14 Reported NEXT DOSE DUE TONIGHT AT BEDTIME Impression . Full note dictated Acute on chronic hypoxemic respiratory failure acute on chronic CHF acute exacerbation of COPD Discussed with social contact worker, he needs long-term care placement RACHAEL GR MD Mar 07, 2020 13:46
--- NOTE | 2020-03-07 18:04 | CONS ---
DATE OF CONSULTATION: 03/07/2020 ATTENDING PHYSICIAN: Dani Paulino MD CONSULTING PHYSICIAN: Rachael Gr MD REASON FOR CONSULTATION: The patient is seen in pulmonary consultation at the request of Dr. Paulino for acute on chronic respiratory failure. HISTORY OF PRESENT ILLNESS: The patient is well known to me. He has underlying cardiomyopathy, severe chronic obstructive pulmonary disease. He is on home Trilogy, presented with increasing shortness of breath. He states that at home, he was unable to tolerate activities of daily living. He does live by himself. He has had multiple recurrent admissions. He has had previous history of polysubstance use. He is tested negative twice now. In the past, we done our best with case management as social work nurse trying to come up with a plan to avoid readmissions. The patient has refused to go to a long-term care facility. He lives at home by himself. I think he is at the point where he needs some assistance. I reviewed his x-ray. There is no significant change on x-ray. He denies fever or chills. No COVID-19 exposures. He did have serology for SARS-CoV-2 on 03/06/2020, which was negative, both the rapid and the PCR. PAST MEDICAL HISTORY: Chronic respiratory failure, chronic obstructive pulmonary disease, chronic heart failure, hypertension, tobacco dependent, and polysubstance use. He is tested negative twice now, over the last 2 admissions. PAST SURGICAL HISTORY: Status post appendectomy and hernia repair. ALLERGIES: LEVAQUIN. MEDICATIONS: List was reviewed. REVIEW OF SYSTEMS: As indicated above, otherwise, a 10-point system was reviewed and negative. FAMILY HISTORY: Coronary artery disease, diabetes, hypertension. PHYSICAL EXAMINATION: VITAL SIGNS: The patient at rest did not appear to be in any significant respiratory distress. He is currently requiring anywhere between 5-8 liters of oxygen. HEENT: Eyes: The sclerae were nonicteric. NECK: Jugular venous distention was not elevated. No lymphadenopathy. CHEST: Full expansion. LUNGS: Poor flow with some slight crackles in the bases. CARDIOVASCULAR: Regular rate and rhythm with S1, S2, no S3. ABDOMEN: Soft, nontender. EXTREMITIES: No clubbing, cyanosis or edema. NEUROLOGICAL: The patient was awake, alert, following commands. A detailed neuro exam was not performed. LABORATORY DATA: Reviewed. White count was normal. Serology for COVID-19 was negative. Electrolytes were noted. Troponin was elevated. IMPRESSION: 1. Acute on chronic respiratory failure, multifactorial. 2. Acute on chronic systolic and diastolic heart failure. 3. Sick sinus syndrome, status post biventricular pacemaker. 4. Nonischemic cardiomyopathy. 5. Chronic troponin elevation. 6. Paroxysmal atrial fibrillation. 7. Hypertension. 8. Severe chronic obstructive pulmonary disease. 9. Tobacco dependence, in remission. 10. Non-ST segment elevation myocardial infarction. PLAN: As indicated above, I had a lengthy discussion with the patient. I think he simply needs long-term care in a [facility]. He lives at home by himself. I think that some of his dyspnea is related to anxiety. He definitely has underlying pathology. We will continue to aggressively manage him diurese per Cardiology. Continue Trilogy at home. I do appreciate the privilege in sharing in this patient's care. RACHAEL GR MD DR: HELEN/yumiko JOB#: [id number] / [id number]
[2020-03-07] MEDS: SIMVASTATIN 20 MG TABLET PO SCH (21:03)
[2020-03-08] VITALS (10 sets, daily range): BP systolic 118–154; BP diastolic 77–95
[2020-03-08] MEDS: IPRATRPIUM/ALBUTEROL 0.5/2.5MG 3 ML NEBU. NEB SCH ×6 (00:11→19:43)
[2020-03-08 07:58] LABS: CALCIUM 9.3 mg/dL (8.5-10.1); CREATININE 1.6 mg/dL (0.7-1.3); GFR 53.1; MAGNESIUM 2.2 mg/dL (1.8-2.4); POTASSIUM 3.3 mmol/L (3.5-5.1)
[2020-03-08] MEDS ORDERED: POTASSIUM CHLORIDE 20 MEQ TABLET.ER. PO ONE (08:15)
[2020-03-08] MEDS: APIXABAN 5 MG TABLET. PO SCH (08:54)
[2020-03-08] MEDS: NICOTINE 21MG PATCH. TD SCH (08:54)
[2020-03-08] MEDS: AMIODARONE HCL 200 MG TABLET. PO SCH (08:55)
[2020-03-08] MEDS: METOPROLOL SUCC 24HR ER 25 MG TAB.ER.24H. PO SCH (08:55)
--- NOTE | 2020-03-08 08:55 | PDOC ---
PULMONARY PROGRESS NOTES DATE: 03/08/20 TIME: 08:55 Subjective Patient is resting comfortably on 8 L nasal cannula reports some shortness of breath with exertion denies chest pain or cough Afebrile overnight No other concerns from nursing at this time Vitals Vital Signs Date Time Temp Pulse Resp B/P (MAP) Pulse Ox O2 Delivery O2 Flow Rate FiO2 03/08/20 07:30 98 BiPAP/CPAP 03/08/20 07:00 98.0 70 20 145/86 (105) 8.0 98.0 ROS: No Nausea, No Chest Pain, No Abdominal Pain, No Increase Cough General: Alert, Oriented X4, No acute distress HEENT: Other Lungs: Wheezing, Crackles, Other (On BiPAP) Cardiovascular: S1, S2 Abdomen: Soft, Non-tender, Other Extremities: Other (BLE +2) Labs Laboratory Tests Test 03/06/20 12:03 03/06/20 12:25 03/06/20 13:05 03/06/20 13:18 O2 Saturation 97 % (92-99) Arterial Blood pH 7.48 (7.35-7.45) Arterial Blood pCO2 at Patient Temp 35 mmHg (35-46) Arterial Blood pO2 at Patient Temp 93 mmHg (65-108) Arterial Blood HCO3 25 mmol/L (21-28) Arterial Blood Base Excess 2 mmol/L (-3-3) Oxyhemoglobin 96.1 % Methemoglobin 0.4 % (0.0-1.9) Carbon Monoxide, Quantitative 0.7 % (0.0-1.9) FiO2 40/5lnc White Blood Count 7.8 x10^3/uL (4.0-11.0) Red Blood Count 4.00 x10^6/uL (4.30-5.70) Hemoglobin 11.4 g/dL (13.0-17.5) Hematocrit 34.9 % (39.0-53.0) Mean Corpuscular Volume 87 fL (79-100) Mean Corpuscular Hemoglobin 29 pg (25-35) Mean Corpuscular Hemoglobin Concent 33 g/dL (31-37) Red Cell Distribution Width 16.8 % (11.5-14.5) Platelet Count 117 x10^3/uL (140-400) Neutrophils (%) (Auto) 86 % (31-73) Lymphocytes (%) (Auto) 6 % (24-48) Monocytes (%) (Auto) 7 % (0-9) Eosinophils (%) (Auto) 1 % (0-3) Basophils (%) (Auto) 1 % (0-3) Neutrophils # (Auto) 6.7 x10^3/uL (1.8-7.7) Lymphocytes # (Auto) 0.5 x10^3/uL (1.0-4.8) Monocytes # (Auto) 0.5 x10^3/uL (0.0-1.1) Eosinophils # (Auto) 0.0 x10^3/uL (0.0-0.7) Basophils # (Auto) 0.1 x10^3/uL (0.0-0.2) Segmented Neutrophils % 79 % (35-66) Band Neutrophils % 8 % (0-9) Lymphocytes % 10 % (24-48) Atypical Lymphocytes % (Manual) 1 % (0-0) Monocytes % 2 % (0-10) Platelet Estimate Decreased (ADEQUATE) Anisocytosis Slight Ovalocytes Mod Sodium Level 140 mmol/L (136-145) Potassium Level 3.3 mmol/L (3.5-5.1) Chloride Level 104 mmol/L (98-107) Carbon Dioxide Level 31 mmol/L (21-32) Anion Gap 5 (6-14) Blood Urea Nitrogen 25 mg/dL (8-26) Creatinine 1.4 mg/dL (0.7-1.3) Estimated GFR (Cockcroft-Gault) 61.9 BUN/Creatinine Ratio 18 (6-20) Glucose Level 103 mg/dL (70-99) Calcium Level 9.7 mg/dL (8.5-10.1) Magnesium Level 2.2 mg/dL (1.8-2.4) Total Bilirubin 1.3 mg/dL (0.2-1.0) Aspartate Amino Transf (AST/SGOT) 21 U/L (15-37) Alanine Aminotransferase (ALT/SGPT) 19 U/L (16-63) Alkaline Phosphatase 47 U/L (46-116) Creatine Kinase 166 U/L (39-308) Creatine Kinase MB (Mass) 3.2 ng/mL (0.0-3.6) Creatine Kinase MB Relative Index 1.9 % (0-4) Troponin I Quantitative 0.201 ng/mL (0.000-0.055) [id number]-Type Natriuretic Peptide 48968 pg/mL (0-124) Total Protein 7.1 g/dL (6.4-8.2) Albumin 3.5 g/dL (3.4-5.0) Albumin/Globulin Ratio 1.0 (1.0-1.7) Lipase 37 U/L (73-393) Influenza Type A Antigen Negative (NEGATIVE) Influenza Type B Antigen Negative (NEGATIVE) SARS-CoV-2 Antigen (Rapid) Negative (NEGATIVE) Coronavirus (COVID-19)(PCR) Negative (NEGATIVE) Test 03/06/20 16:40 03/06/20 19:09 03/07/20 00:39 03/07/20 08:15 Urine Collection Type Unknown Urine Color Yellow Urine Clarity Clear Urine pH 7.0 (<5.0-8.0) Urine Specific [place] 1.010 (1.000-1.030) Urine Protein 30 mg/dL (NEG-TRACE) Urine Glucose (UA) Negative mg/dL (NEG) Urine Ketones (Stick) Negative mg/dL (NEG) Urine Blood Negative (NEG) Urine Nitrite Negative (NEG) Urine Bilirubin Negative (NEG) Urine Urobilinogen Dipstick 0.2 mg/dL (0.2 mg/dL) Urine Leukocyte Esterase Negative (NEG) Urine RBC 3-5 /HPF (0-2) Urine WBC 0 /HPF (0-4) Urine Squamous Epithelial Cells Few /LPF Urine Bacteria 0 /HPF (0-FEW) Urine Opiates Screen Neg (NEG) Urine Methadone Screen Neg (NEG) Urine Barbiturates Neg (NEG) Urine Phencyclidine Screen Neg (NEG) Urine Amphetamine/Methamphetamine Neg (NEG) Urine Benzodiazepines Screen Neg (NEG) Urine Cocaine Screen Neg (NEG) Urine Cannabinoids Screen Neg (NEG) Urine Ethyl Alcohol Neg (NEG) Troponin I Quantitative 0.240 ng/mL (0.000-0.055) 0.205 ng/mL (0.000-0.055) 0.195 ng/mL (0.000-0.055) White Blood Count 6.7 x10^3/uL (4.0-11.0) Red Blood Count 3.94 x10^6/uL (4.30-5.70) Hemoglobin 11.1 g/dL (13.0-17.5) Hematocrit 34.7 % (39.0-53.0) Mean Corpuscular Volume 88 fL (79-100) Mean Corpuscular Hemoglobin 28 pg (25-35) Mean Corpuscular Hemoglobin Concent 32 g/dL (31-37) Red Cell Distribution Width 16.7 % (11.5-14.5) Platelet Count 125 x10^3/uL (140-400) Neutrophils (%) (Auto) 79 % (31-73) Lymphocytes (%) (Auto) 10 % (24-48) Monocytes (%) (Auto) 8 % (0-9) Eosinophils (%) (Auto) 2 % (0-3) Basophils (%) (Auto) 1 % (0-3) Neutrophils # (Auto) 5.3 x10^3/uL (1.8-7.7) Lymphocytes # (Auto) 0.7 x10^3/uL (1.0-4.8) Monocytes # (Auto) 0.5 x10^3/uL (0.0-1.1) Eosinophils # (Auto) 0.1 x10^3/uL (0.0-0.7) Basophils # (Auto) 0.0 x10^3/uL (0.0-0.2) Sodium Level 144 mmol/L (136-145) Potassium Level 3.7 mmol/L (3.5-5.1) Chloride Level 106 mmol/L (98-107) Carbon Dioxide Level 34 mmol/L (21-32) Anion Gap 4 (6-14) Blood Urea Nitrogen 24 mg/dL (8-26) Creatinine 1.7 mg/dL (0.7-1.3) Estimated GFR (Cockcroft-Gault) 49.5 BUN/Creatinine Ratio 14 (6-20) Glucose Level 83 mg/dL (70-99) Calcium Level 9.8 mg/dL (8.5-10.1) Total Bilirubin 1.2 mg/dL (0.2-1.0) Aspartate Amino Transf (AST/SGOT) 20 U/L (15-37) Alanine Aminotransferase (ALT/SGPT) 21 U/L (16-63) Alkaline Phosphatase 49 U/L (46-116) Total Protein 6.2 g/dL (6.4-8.2) Albumin 3.2 g/dL (3.4-5.0) Albumin/Globulin Ratio 1.1 (1.0-1.7) Test 03/08/20 06:20 Sodium Level 143 mmol/L (136-145) Potassium Level 3.3 mmol/L (3.5-5.1) Chloride Level 106 mmol/L (98-107) Carbon Dioxide Level 35 mmol/L (21-32) Anion Gap 2 (6-14) Blood Urea Nitrogen 24 mg/dL (8-26) Creatinine 1.6 mg/dL (0.7-1.3) Estimated GFR (Cockcroft-Gault) 53.1 Glucose Level 87 mg/dL (70-99) Calcium Level 9.3 mg/dL (8.5-10.1) Magnesium Level 2.2 mg/dL (1.8-2.4) Laboratory Tests Test 03/08/20 06:20 Sodium Level 143 mmol/L (136-145) Potassium Level 3.3 mmol/L (3.5-5.1) Chloride Level 106 mmol/L (98-107) Carbon Dioxide Level 35 mmol/L (21-32) Anion Gap 2 (6-14) Blood Urea Nitrogen 24 mg/dL (8-26) Creatinine 1.6 mg/dL (0.7-1.3) Estimated GFR (Cockcroft-Gault) 53.1 Glucose Level 87 mg/dL (70-99) Calcium Level 9.3 mg/dL (8.5-10.1) Magnesium Level 2.2 mg/dL (1.8-2.4) Medications Active Scripts Medications Dose Route/Sig Max Daily Dose Days Date Category Dose Instructions Bumetanide 1 Mg Tablet 1 Mg PO BID 03/04/20 Rx Amiodarone Hcl 200 Mg Tablet 200 Mg PO DAILY 03/04/20 Rx Potassium Chloride (Potassium Chloride) 20 Meq Tablet.er 20 Meq PO DAILY 30 02/02/20 Rx NICODERM CQ 21mg (Nicotine) 1 Each Patch.td24 1 Patch TP DAILY 01/28/20 Reported Eliquis (Apixaban) 5 Mg Tablet 5 Mg PO BID 08/02/19 Reported Toprol Xl (Metoprolol Succinate) 25 Mg Tab.er.24h 1 Tab PO DAILY 30 08/02/19 Reported Lisinopril 40 Mg Tablet 20 Mg PO DAILY 30 05/10/19 Rx Duoneb 0.5-3(2.5) Mg/3 Ml (Albuterol/Ipratropium) 3 Ml Ampul.neb 3 Ml NEB Q4HRS 30 05/09/19 Rx Albuterol Sulfate Neb Soln (Albuterol Sulfate) 0.63 Mg/3 Ml Vial.neb 0.63 Mg NEB PRN Q4HRS PRN 30 10/13/16 Rx NEEDED Zocor (Simvastatin) 20 Mg Tablet 20 Mg PO HS 10/27/14 Reported NEXT DOSE DUE TONIGHT AT BEDTIME Comments CXR Impression: 1. Findings again suggest volume overload with cardiomegaly. Trace effusions are reidentified. Impression . IMPRESSION: 1. Acute on chronic respiratory failure, multifactorial. 2. Acute on chronic systolic and diastolic heart failure. 3. Sick sinus syndrome, status post biventricular pacemaker. 4. Nonischemic cardiomyopathy. 5. Chronic troponin elevation. 6. Paroxysmal atrial fibrillation. 7. Hypertension. 8. Severe chronic obstructive pulmonary disease. 9. Tobacco dependence, in remission. 10. Non-ST segment elevation myocardial infarction. Plan . PLAN: Continue supplemental oxygen, currently on 8 L nasal cannula, baseline 7 L nasal cannula Follow cardiology recommendations, diuresis per cardiology, currently on milrinone drip Hypertension Per PCP and cardiology-- LVEF 20-25%. Monitor renal function during diuresis, slightly improved today Social work for DC planning, continue trilogy at home, patient may benefit from long-term nursing Physical therapy/Occupational Therapy DVT/GI prophylaxis: Eliquis and Protonix Discussed with RN PT. is FULL CODE RACHAEL GR MD Mar 08, 2020 08:55
[2020-03-08] MEDS: LISINOPRIL 20 MG TABLET PO SCH (08:56)
[2020-03-08] MEDS ORDERED: BUMETANIDE 1 MG/4 ML VIAL. IV SCH (09:00)
[2020-03-08] MEDS: POTASSIUM CHLORIDE 20 MEQ TABLET.ER. PO SCH ×3 (09:12→17:15)
[2020-03-08] MEDS ORDERED: ALBUMIN HUMAN 25% 100 ML IV ONE (11:00)
--- NOTE | 2020-03-08 11:04 | PDOC ---
CARDIO Progress Notes Date and Time Date of Service 03/08/2020 Time of Evaluation 0940 Subjective Subjective: No Chest Pain, No Palpitations, Other ( Still SOA) Vitals Vitals Vital Signs Date Time Temp Pulse Resp B/P (MAP) Pulse Ox O2 Delivery O2 Flow Rate FiO2 03/08/20 08:56 70 145/86 03/08/20 07:30 98 BiPAP/CPAP 03/08/20 07:00 98.0 20 8.0 98.0 Weight Weight [ ] Input and Output Intake and Output Intake and Output 03/08/20 07:00 Intake Total 1320 ml Output Total 1350 ml Balance -30 ml Intake Oral 1320 ml Output Urine Total 1350 ml Laboratory Labs Laboratory Tests Test 03/08/20 06:20 Sodium Level 143 mmol/L (136-145) Potassium Level 3.3 mmol/L (3.5-5.1) Chloride Level 106 mmol/L (98-107) Carbon Dioxide Level 35 mmol/L (21-32) Anion Gap 2 (6-14) Blood Urea Nitrogen 24 mg/dL (8-26) Creatinine 1.6 mg/dL (0.7-1.3) Estimated GFR (Cockcroft-Gault) 53.1 Glucose Level 87 mg/dL (70-99) Calcium Level 9.3 mg/dL (8.5-10.1) Magnesium Level 2.2 mg/dL (1.8-2.4) Physical Exam HEENT: Neck Supple W Full Motion Chest: Symmetric LUNGS: Other (diffuse crackles) Heart: RRR (Vpaced with first degree AV block) Abdomen: Soft N/T Extremities: Other (3-4+pitting edema) Neurology: alert, oriented, follow commands Assessment Assessment 1. Acute on chronic respiratory failure COPD and CHF 2. Acute on chronic systolic/diastolic CHF:still fluid overloaded 3. 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 Recent device check revealed 31% AFIB burden with no significant RVR episodes since amiodarone. normal function, BiV pacing 100% 4. Chronic mild troponin elevation; peak 0.153 with h/o chronic troponin elevation. Type II. demand ischemia. CP free. 5. PAFIB; V paced 6. HTN: controlled 7. ASHLEY on CKD3 8. Hx of tobaccoism, cocaine and marijuana use. Has been sober 9. COPD 10. NSVT Recommendations 1. Amiodarone for rhythm maintenance. Eliquis for stroke prevention. Will hold for possible ischemic workup tomorrow. 2. Goal wt is 85 KG. Continue Milrinone and start lasix drip. Albumin x1. Replace K 3. Secondary prevention measures. 4. 2Gm Na diet, 1500cc FR. Standing wt 5. Will need referral to HF clinic Justicifation of Admission Dx: Justifications for Admission: Justification of Admission Dx: Yes Respiratory Failure: Severe Resp Distress LORRAINE VILLEGAS TRANSFORMER [employer] SUPERVISOR Mar 08, 2020 11:04
--- NOTE | 2020-03-08 11:21 | PDOC ---
[facility] PROGRESS NOTE Date of Service DOS: DATE: 03/08/20 TIME: : Chief Complaint Chief Complaint Acute on chronic systolic and diastolic heart failure Prior history of cocaine abuse Noncompliance Hypokalemia Anemia HTN Hyperlipidemia Asthma COPD History of Present Illness History of Present Illness 03/07/2020 Patient seen and examined Discussed with RN Chart reviewed 03/08/20 Pt seen and examined in room. LEFTY RN regarding fluid restriction and low sodium diet. Chart reviewed. Pt claims breathign is improving and denies any chest pain. Vitals/I&O Vitals/I&O: Vital Signs Date Time Temp Pulse Resp B/P (MAP) Pulse Ox O2 Delivery O2 Flow Rate FiO2 03/08/20 08:56 70 145/86 03/08/20 07:30 98 BiPAP/CPAP 03/08/20 07:00 98.0 20 8.0 98.0 I & O 03/07/20 03/07/20 03/08/20 15:00 23:00 07:00 Intake Total 320 ml 1000 ml Output Total 500 ml 550 ml 300 ml Balance -500 ml -230 ml 700 ml Physical Exam General: Alert, mild distress Heart: Regular rate, Other (S1-S2 soft S3) Lungs: Wheezing, Crackles, Other (On BiPAP) Abdomen: Soft Extremities: No cyanosis Skin: No rashes Labs Labs: Laboratory Tests Test 03/08/20 06:20 Sodium Level 143 mmol/L (136-145) Potassium Level 3.3 mmol/L (3.5-5.1) Chloride Level 106 mmol/L (98-107) Carbon Dioxide Level 35 mmol/L (21-32) Anion Gap 2 (6-14) Blood Urea Nitrogen 24 mg/dL (8-26) Creatinine 1.6 mg/dL (0.7-1.3) Estimated GFR (Cockcroft-Gault) 53.1 Glucose Level 87 mg/dL (70-99) Calcium Level 9.3 mg/dL (8.5-10.1) Magnesium Level 2.2 mg/dL (1.8-2.4) Review of Systems Review of Systems: General: No fever, chills, nausea CV: No Chest Pain GI: No Abdominal Pain, vomiting, diarrhea Pulm: No Increase Cough, Pt complains of SOB- but feels is improving Assessment and Plan Assessmemt and Plan Assessment: 1. Acute on chronic systolic and diastolic heart failure 2. Acute on Chronic Respiratory Failure 3. Hypokalemia 4. AFIB with Ventricular Pacing 5. Anemia 6. HTN 7. Hyperlipidemia 8. Asthma 9. COPD 10. ASHLEY on CKD3 11. Noncompliance 12. Hx of polysubstance abuse 13. Hx of tobaccoism Plan: 1. Continue Amiodarone for rhythm maintenance AFIB. 2. Continue Eliquis for stroke prevention- AFIB. 3. Continue Milrinone 4. Continue Lasix drip. 5. Albumin given 6. PO Potassium replacement 7. DVT ppx 8. Continue Low Na diet 9. 1.5 L fluid restriction 10. Will need referral to HF clinic for outpt follow up. 11. Discharge disposition pending. 12. Trend labs 12. Cardiology and Pulm consulted and following. We appreciate their input. Comment Review of Relevant I have reviewed the following items rishi (where applicable) has been applied. Medications: Current Medications Medications (Trade) Dose Ordered Sig/Dex Route PRN Reason Start Time Stop Time Status Last Admin Dose Admin Bumetanide (Bumex) 1 mg [id number] IV 03/08/20 09:00 03/08/20 10:58 DC 03/08/20 08:54 Potassium Chloride (Klor-Con) 40 meq 1X ONCE PO 03/08/20 08:15 03/08/20 08:16 DC 03/08/20 09:12 Justifications for Admission Other Justification CHF vs COPD exacerbation hypoxic resp fail KINA CONTRERAS III DO Mar 08, 2020 11:21
--- NOTE | 2020-03-08 12:04 | NUR ---
SS following up with discharge planning. SS reviewed pt chart and discussed with pt RN. Pt is currently requiring oxygen and has home oxygen. PT/OT recommended [facility] unit. Pt accepted at [facility], ; fax [phone], pending insurance authorization. COVID19 negative. SS will continue to follow for discharge planning.
[2020-03-08] MEDS: PANTOPRAZOLE 40 MG TABLET.DR. PO SCH (12:32)
[2020-03-08] MEDS: FUROSEMIDE INJ 100 MG in IV NORMAL SALINE 100ML 100 ML IV PRN (14:24)
[2020-03-08] MEDS: MILRINONE 20MG/100ML PREMIX 100 ML IV PRN (16:45)
[2020-03-08] MEDS: SIMVASTATIN 20 MG TABLET PO SCH (21:40)
[2020-03-09] VITALS (20 sets, daily range): BP systolic 119–153; BP diastolic 69–102
[2020-03-09] MEDS: IPRATRPIUM/ALBUTEROL 0.5/2.5MG 3 ML NEBU. NEB SCH ×6 (00:20→20:13)
[2020-03-09] MEDS: MILRINONE 20MG/100ML PREMIX 100 ML IV PRN ×2 (04:41→20:05)
[2020-03-09 05:51] LABS: CALCIUM 9.5 mg/dL (8.5-10.1); CREATININE 1.7 mg/dL (0.7-1.3); GFR 49.5; MAGNESIUM 2.3 mg/dL (1.8-2.4); POTASSIUM 3.8 mmol/L (3.5-5.1)
[2020-03-09] MEDS: FUROSEMIDE INJ 100 MG in IV NORMAL SALINE 100ML 100 ML IV PRN (06:37)
[2020-03-09] MEDS: POTASSIUM CHLORIDE 20 MEQ TABLET.ER. PO SCH ×3 (08:25→17:18)
[2020-03-09] MEDS: PANTOPRAZOLE 40 MG TABLET.DR. PO SCH (08:25)
[2020-03-09] MEDS: METOPROLOL SUCC 24HR ER 25 MG TAB.ER.24H. PO SCH (08:25)
[2020-03-09] MEDS: AMIODARONE HCL 200 MG TABLET. PO SCH (08:26)
[2020-03-09] MEDS: LISINOPRIL 20 MG TABLET PO SCH (08:26)
--- NOTE | 2020-03-09 08:29 | PDOC ---
PULMONARY PROGRESS NOTES DATE: 03/09/20 TIME: 08:29 Subjective Patient is resting comfortably on 7 L nasal cannula Reports improvement in his breathing, reports he wore BiPAP overnight last night Denies any increased shortness of breath or cough Now on Lasix drip and milrinone drip Afebrile overnight No other concerns from nursing at this time Vitals Vital Signs Date Time Temp Pulse Resp B/P (MAP) Pulse Ox O2 Delivery O2 Flow Rate FiO2 03/09/20 07:49 94 Nasal Cannula 8.0 03/09/20 07:00 70 150/90 (110) 03/09/20 06:35 12 03/09/20 02:51 98.2 98.2 ROS: No Nausea, No Chest Pain, No Abdominal Pain, No Increase Cough General: Alert, Oriented X4, No acute distress HEENT: Other Lungs: Crackles Cardiovascular: S1, S2 Abdomen: Soft, Non-tender, Other Extremities: Other (BLE +2) Labs Laboratory Tests Test 03/08/20 06:20 03/09/20 05:00 Sodium Level 143 mmol/L (136-145) 144 mmol/L (136-145) Potassium Level 3.3 mmol/L (3.5-5.1) 3.8 mmol/L (3.5-5.1) Chloride Level 106 mmol/L (98-107) 105 mmol/L (98-107) Carbon Dioxide Level 35 mmol/L (21-32) 34 mmol/L (21-32) Anion Gap 2 (6-14) 5 (6-14) Blood Urea Nitrogen 24 mg/dL (8-26) 22 mg/dL (8-26) Creatinine 1.6 mg/dL (0.7-1.3) 1.7 mg/dL (0.7-1.3) Estimated GFR (Cockcroft-Gault) 53.1 49.5 Glucose Level 87 mg/dL (70-99) 83 mg/dL (70-99) Calcium Level 9.3 mg/dL (8.5-10.1) 9.5 mg/dL (8.5-10.1) Magnesium Level 2.2 mg/dL (1.8-2.4) 2.3 mg/dL (1.8-2.4) Laboratory Tests Test 03/09/20 05:00 Sodium Level 144 mmol/L (136-145) Potassium Level 3.8 mmol/L (3.5-5.1) Chloride Level 105 mmol/L (98-107) Carbon Dioxide Level 34 mmol/L (21-32) Anion Gap 5 (6-14) Blood Urea Nitrogen 22 mg/dL (8-26) Creatinine 1.7 mg/dL (0.7-1.3) Estimated GFR (Cockcroft-Gault) 49.5 Glucose Level 83 mg/dL (70-99) Calcium Level 9.5 mg/dL (8.5-10.1) Magnesium Level 2.3 mg/dL (1.8-2.4) Medications Active Scripts Medications Dose Route/Sig Max Daily Dose Days Date Category Dose Instructions Bumetanide 1 Mg Tablet 1 Mg PO BID 03/04/20 Rx Amiodarone Hcl 200 Mg Tablet 200 Mg PO DAILY 03/04/20 Rx Potassium Chloride (Potassium Chloride) 20 Meq Tablet.er 20 Meq PO DAILY 30 02/02/20 Rx NICODERM CQ 21mg (Nicotine) 1 Each Patch.td24 1 Patch TP DAILY 01/28/20 Reported Eliquis (Apixaban) 5 Mg Tablet 5 Mg PO BID 08/02/19 Reported Toprol Xl (Metoprolol Succinate) 25 Mg Tab.er.24h 1 Tab PO DAILY 30 08/02/19 Reported Lisinopril 40 Mg Tablet 20 Mg PO DAILY 30 05/10/19 Rx Duoneb 0.5-3(2.5) Mg/3 Ml (Albuterol/Ipratropium) 3 Ml Ampul.neb 3 Ml NEB Q4HRS 30 05/09/19 Rx Albuterol Sulfate Neb Soln (Albuterol Sulfate) 0.63 Mg/3 Ml Vial.neb 0.63 Mg NEB PRN Q4HRS PRN 30 10/13/16 Rx NEEDED Zocor (Simvastatin) 20 Mg Tablet 20 Mg PO HS 10/27/14 Reported NEXT DOSE DUE TONIGHT AT BEDTIME Comments CXR Impression: 1. Findings again suggest volume overload with cardiomegaly. Trace effusions are reidentified. Impression . IMPRESSION: 1. Acute on chronic respiratory failure, multifactorial. 2. Acute on chronic systolic and diastolic heart failure. 3. Sick sinus syndrome, status post biventricular pacemaker. 4. Nonischemic cardiomyopathy. 5. Chronic troponin elevation. 6. Paroxysmal atrial fibrillation. 7. Hypertension. 8. Severe chronic obstructive pulmonary disease. 9. Tobacco dependence, in remission. 10. Non-ST segment elevation myocardial infarction. Plan . PLAN: Continue supplemental oxygen, currently on 7 L nasal cannula Continue BiPAP/trilogy at night Follow chest x-ray as needed Bronchodilators as needed Follow cardiology recommendations, diuresis per cardiology, currently on milrinone drip and Lasix drip Hypertension Per PCP and cardiology-- LVEF 20-25%. Monitor renal function -- stable Social work for DC planning, plan to discharge to rehab when medically stable Physical therapy/Occupational Therapy DVT/GI prophylaxis: Eliquis and Protonix Discussed with RN PT. is FULL CODE RACHAEL GR MD Mar 09, 2020 08:29
[2020-03-09] MEDS: NICOTINE 21MG PATCH. TD SCH (08:30)
--- NOTE | 2020-03-09 12:41 | PDOC ---
LORRAINE VILLEGAS TEST ENGINEER 03/09/20 1241: CARDIO Progress Notes Date and Time Date of Service 03/09/2020 Time of Evaluation 1000 Subjective Subjective: No Chest Pain, No Palpitations, Other ( Still SOA) Vitals Vitals Vital Signs Date Time Temp Pulse Resp B/P (MAP) Pulse Ox O2 Delivery O2 Flow Rate FiO2 03/09/20 10:48 98.1 71 24 131/81 (98) 100 Nasal Cannula 8.0 98.1 Weight Weight [ ] Input and Output Intake and Output Intake and Output 03/09/20 07:00 Intake Total 1420 ml Output Total 3375 ml Balance -1955 ml Intake Oral 1420 ml Output Urine Total 3375 ml Laboratory Labs Laboratory Tests Test 03/09/20 05:00 Sodium Level 144 mmol/L (136-145) Potassium Level 3.8 mmol/L (3.5-5.1) Chloride Level 105 mmol/L (98-107) Carbon Dioxide Level 34 mmol/L (21-32) Anion Gap 5 (6-14) Blood Urea Nitrogen 22 mg/dL (8-26) Creatinine 1.7 mg/dL (0.7-1.3) Estimated GFR (Cockcroft-Gault) 49.5 Glucose Level 83 mg/dL (70-99) Calcium Level 9.5 mg/dL (8.5-10.1) Magnesium Level 2.3 mg/dL (1.8-2.4) Physical Exam HEENT: Neck Supple W Full Motion Chest: Symmetric LUNGS: Other (diffuse crackles) Heart: RRR (Vpaced with first degree AV block) Abdomen: Soft N/T Extremities: Other (3-4+pitting edema) Neurology: alert, oriented, follow commands Assessment Assessment 1. Acute on chronic respiratory failure COPD and CHF 2. Acute on chronic systolic/diastolic CHF:still fluid overloaded 3. SSS/ NICM s/p BiV PPM/PET AMBASSADOR-P (Biotronik); LVEF 20-25%. Recent device check revealed 31% AFIB burden with no significant RVR episodes since amiodarone. normal function, BiV pacing 100% 4. Chronic mild troponin elevation; peak 0.153 with h/o chronic troponin elevation. Type II. demand ischemia. CP free. 5. PAFIB; V paced 6. HTN: controlled 7. ASHLEY on CKD3 8. Hx of tobaccoism, cocaine and marijuana use. Has been sober 9. COPD 10. NSVT Recommendations 1. Amiodarone for rhythm maintenance. Eliquis for stroke prevention. 2. Optimize over the weekend and will consider for ischemic w/u next week. Good UOP with lasix drip so far. Continue Milrinone. 3. Secondary prevention measures. 4. 2Gm Na diet, 1500cc FR. Standing wt 5. Will need referral to HF clinic Justicifation of Admission Dx: Justifications for Admission: Justification of Admission Dx: Yes Respiratory Failure: Severe Resp Distress CLAUDE LAUREANO MD 03/09/20 1633: CARDIO Progress Notes Assessment Assessment Patient seen and examined I agree with our nurse practitioners assessment and plan. Acute on chronic respiratory failure COPD and CHF. Clinically improved. Acute on chronic systolic/diastolic CHF:still fluid overloaded SSS/ NICM s/p BiV PPM/PET AMBASSADOR-P (Biotronik); LVEF 20-25%. Recent device check revealed 31% AFIB burden with no significant RVR episodes since amiodarone. normal function, BiV pacing 100% Chronic mild troponin elevation; peak 0.153 with h/o chronic troponin elevation. Type II. demand ischemia. CP free. PAFIB; V paced HTN: controlled ASHLEY on CKD3 Hx of tobaccoism, cocaine and marijuana use. Has been sober NSVT LORRAINE VILLEGAS APRN Mar 09, 2020 12:41 CLAUDE LAUREANO MD Mar 09, 2020 16:33
--- NOTE | 2020-03-09 13:13 | NUR ---
SS following up with discharge planning. SS reviewed pt chart and discussed with pt RN. Pt is currently requiring oxygen. Pt has home oxygen and trilogy. COVID19 negative. Pt accepted at [facility], ; fax [phone]. Insurance authorization received. Franny from [facility] contacted SS and reported bed not available until 03/11/2020. Transportation scheduled by [facility] for 03/11/2020 at 1100. Pt's RN notified that discharge instructions need to be faxed to facility prior to discharge. SS will continue to follow for discharge planning.
[2020-03-09] MEDS: APIXABAN 5 MG TABLET. PO SCH ×2 (13:20→20:08)
[2020-03-09] MEDS: SIMVASTATIN 20 MG TABLET PO SCH (20:08)
--- NOTE | 2020-03-09 21:42 | PDOC ---
[facility] PROGRESS NOTE Date of Service DOS: DATE: 03/09/20 TIME: 21:40 Chief Complaint Chief Complaint Acute on chronic systolic and diastolic heart failure Prior history of cocaine abuse Noncompliance Hypokalemia Anemia HTN Hyperlipidemia Asthma COPD History of Present Illness History of Present Illness 03/08/20 No acute events overnight. Currently on milirnone and lasix gtt. Goal weight of 85 kg. 03/07/2020 Patient seen and examined Discussed with RN Chart reviewed 03/08/20 Pt seen and examined in room. LEFTY RN regarding fluid restriction and low sodium diet. Chart reviewed. Pt claims breathign is improving and denies any chest pain. Vitals/I&O Vitals/I&O: Vital Signs Date Time Temp Pulse Resp B/P (MAP) Pulse Ox O2 Delivery O2 Flow Rate FiO2 03/09/20 20:19 100 Nasal Cannula 8.0 03/09/20 19:44 98.2 71 24 128/75 (92) 98.2 I & O 03/08/20 03/08/20 03/09/20 15:00 23:00 07:00 Intake Total 1060 ml 360 ml 0 ml Output Total 700 ml 1475 ml 1200 ml Balance 360 ml -1115 ml -1200 ml Physical Exam General: Alert, mild distress Heart: Regular rate, Other (S1-S2 soft S3) Lungs: Crackles Abdomen: Soft Extremities: No cyanosis Skin: No rashes Labs Labs: Laboratory Tests Test 03/09/20 05:00 Sodium Level 144 mmol/L (136-145) Potassium Level 3.8 mmol/L (3.5-5.1) Chloride Level 105 mmol/L (98-107) Carbon Dioxide Level 34 mmol/L (21-32) Anion Gap 5 (6-14) Blood Urea Nitrogen 22 mg/dL (8-26) Creatinine 1.7 mg/dL (0.7-1.3) Estimated GFR (Cockcroft-Gault) 49.5 Glucose Level 83 mg/dL (70-99) Calcium Level 9.5 mg/dL (8.5-10.1) Magnesium Level 2.3 mg/dL (1.8-2.4) Assessment and Plan Assessmemt and Plan Problems Medical Problems: (1) CHF exacerbation Status: Acute (2) Dyspnea Status: Acute (3) Elevated troponin Status: Acute Comment Review of Relevant I have reviewed the following items rishi (where applicable) has been applied. Medications: Current Medications Medications (Trade) Dose Ordered Sig/Dex Route PRN Reason Start Time Stop Time Status Last Admin Dose Admin Apixaban (Eliquis) 5 mg BID PO 03/09/20 12:45 03/09/20 20:08 Justifications for Admission Other Justification CHF vs COPD exacerbation hypoxic resp fail ANT ALVAREZ MD Mar 09, 2020 21:42
[2020-03-10 02:29] VITALS: BP 137/85
[2020-03-10] MEDS: FUROSEMIDE INJ 100 MG in IV NORMAL SALINE 100ML 100 ML IV PRN (03:06)
[2020-03-10] MEDS: IPRATRPIUM/ALBUTEROL 0.5/2.5MG 3 ML NEBU. NEB SCH ×6 (04:10→20:28)
--- NOTE | 2020-03-10 06:55 | PDOC ---
PULMONARY PROGRESS NOTES DATE: 03/10/20 TIME: 06:53 Subjective on bipap 40% fio2 7-8 L nasal cannula during day sob better has occ cough on Lasix drip and milrinone drip Afebrile overnight Vitals Vital Signs Date Time Temp Pulse Resp B/P (MAP) Pulse Ox O2 Delivery O2 Flow Rate FiO2 03/10/20 04:15 97 BiPAP/CPAP 03/10/20 02:29 98.1 71 12 137/85 (102) 98.1 03/09/20 22:44 8.0 ROS: No Nausea, No Chest Pain, No Abdominal Pain, No Increase Cough General: Alert, Oriented X4, No acute distress HEENT: Other (nc at ) Lungs: Crackles Cardiovascular: S1, S2 Abdomen: Soft, Non-tender, Other Extremities: Other (BLE +2) Skin: Warm Labs Laboratory Tests Test 03/09/20 05:00 Sodium Level 144 mmol/L (136-145) Potassium Level 3.8 mmol/L (3.5-5.1) Chloride Level 105 mmol/L (98-107) Carbon Dioxide Level 34 mmol/L (21-32) Anion Gap 5 (6-14) Blood Urea Nitrogen 22 mg/dL (8-26) Creatinine 1.7 mg/dL (0.7-1.3) Estimated GFR (Cockcroft-Gault) 49.5 Glucose Level 83 mg/dL (70-99) Calcium Level 9.5 mg/dL (8.5-10.1) Magnesium Level 2.3 mg/dL (1.8-2.4) Medications Active Scripts Medications Dose Route/Sig Max Daily Dose Days Date Category Dose Instructions Bumetanide 1 Mg Tablet 1 Mg PO BID 03/04/20 Rx Amiodarone Hcl 200 Mg Tablet 200 Mg PO DAILY 03/04/20 Rx Potassium Chloride (Potassium Chloride) 20 Meq Tablet.er 20 Meq PO DAILY 30 02/02/20 Rx NICODERM CQ 21mg (Nicotine) 1 Each Patch.td24 1 Patch TP DAILY 01/28/20 Reported Eliquis (Apixaban) 5 Mg Tablet 5 Mg PO BID 08/02/19 Reported Toprol Xl (Metoprolol Succinate) 25 Mg Tab.er.24h 1 Tab PO DAILY 30 08/02/19 Reported Lisinopril 40 Mg Tablet 20 Mg PO DAILY 30 05/10/19 Rx Duoneb 0.5-3(2.5) Mg/3 Ml (Albuterol/Ipratropium) 3 Ml Ampul.neb 3 Ml NEB Q4HRS 30 05/09/19 Rx Albuterol Sulfate Neb Soln (Albuterol Sulfate) 0.63 Mg/3 Ml Vial.neb 0.63 Mg NEB PRN Q4HRS PRN 30 10/13/16 Rx NEEDED Zocor (Simvastatin) 20 Mg Tablet 20 Mg PO HS 10/27/14 Reported NEXT DOSE DUE TONIGHT AT BEDTIME Comments CXR Impression: 1. Findings again suggest volume overload with cardiomegaly. Trace effusions are reidentified. Impression . IMPRESSION: 1. Acute on chronic respiratory failure, multifactorial. 2. Acute on chronic systolic and diastolic heart failure. 3. Sick sinus syndrome, status post biventricular pacemaker. 4. Nonischemic cardiomyopathy. 5. Chronic troponin elevation. 6. Paroxysmal atrial fibrillation. 7. Hypertension. 8. Severe chronic obstructive pulmonary disease. 9. Tobacco dependence, in remission. 10. Non-ST segment elevation myocardial infarction. Plan . PLAN: Continue supplemental oxygen, titrate fio2 to keep sat 90% Continue BiPAP/trilogy at night Follow chest x-ray as needed Bronchodilators as needed Follow cardiology recommendations, diuresis per cardiology, currently on milrinone drip and Lasix drip Hypertension Per PCP and cardiology-- LVEF 20-25%. Monitor renal function -- stable Social work for DC planning, plan to discharge to rehab when medically stable Physical therapy/Occupational Therapy DVT/GI prophylaxis: Eliquis and Protonix Discussed with RN PT. is FULL CODE TERRI HERBERT MD Mar 10, 2020 06:55
[2020-03-10 07:00] VITALS: BP 150/88
[2020-03-10] MEDS: AMIODARONE HCL 200 MG TABLET. PO SCH (08:18)
[2020-03-10] MEDS: LISINOPRIL 20 MG TABLET PO SCH (08:19)
[2020-03-10] MEDS: POTASSIUM CHLORIDE 20 MEQ TABLET.ER. PO SCH ×2 (08:19→17:05)
[2020-03-10] MEDS: PANTOPRAZOLE 40 MG TABLET.DR. PO SCH (08:19)
[2020-03-10] MEDS: APIXABAN 5 MG TABLET. PO SCH ×2 (08:19→21:28)
[2020-03-10] MEDS: NICOTINE 21MG PATCH. TD SCH (08:19)
[2020-03-10] MEDS: METOPROLOL SUCC 24HR ER 25 MG TAB.ER.24H. PO SCH (08:20)
[2020-03-10] MEDS ORDERED: APIXABAN 5 MG TABLET. PO SCH (09:00)
[2020-03-10] MEDS: MILRINONE 20MG/100ML PREMIX 100 ML IV PRN (10:12)
[2020-03-10 11:00] VITALS: BP 147/86
--- NOTE | 2020-03-10 12:55 | PDOC ---
[facility] PROGRESS NOTE Date of Service DOS: DATE: 03/10/20 TIME: 12:55 Chief Complaint Chief Complaint Acute on chronic systolic and diastolic heart failure Prior history of cocaine abuse Noncompliance Hypokalemia Anemia HTN Hyperlipidemia Asthma COPD History of Present Illness History of Present Illness 03/06/20 HPI: "SEEN IN ER WITH WORSENING SOA, 34 year old AA male who presents to the emergency room via EMS with complaints of increased shortness of breath, and an increased cough with pink sputum since yesterday. Patient denies any known Covid-19 exposure. Patient reports that he was admitted a few weeks ago for a COPD exacerbation and he was discharged home on February 26. He denies any chest pain, palpitations, nausea, vomiting, diarrhea, abdominal pain, sore throat, or headache. reports that his breathing has become more labored. TROPONIN I MILDLY ELEVATED." 03/07/2020 Patient seen and examined Discussed with RN Chart reviewed 03/08/20 Pt seen and examined in room. LEFTY RN regarding fluid restriction and low sodium diet. Chart reviewed. Pt claims breathing is improving and denies any chest pain. 03/08/20 No acute events overnight. Currently on milirnone and lasix gtt. Goal weight of 85 kg. 03/10/20 Pt seen and examined in room. Pt currently on nasal canula with lasix and milrinone drip. Pt claims his breathing has improved since yesterday and denies any chest pain. Pt claims he is adhering to the diet and fluid restrictions. LEFTY nurse. LEFTY cardiology. Vitals/I&O Vitals/I&O: Vital Signs Date Time Temp Pulse Resp B/P (MAP) Pulse Ox O2 Delivery O2 Flow Rate FiO2 03/10/20 12:32 92 Nasal Cannula 6.0 03/10/20 11:00 98.4 69 12 147/86 (106) 98.4 I & O 03/09/20 03/09/20 03/10/20 15:00 23:00 07:00 Intake Total 1060 ml 120 ml 0 ml Output Total 1250 ml 825 ml 425 ml Balance -190 ml -705 ml -425 ml Physical Exam General: Alert, mild distress Heart: Regular rate, Other (S1-S2 soft S3) Lungs: Crackles Abdomen: Soft Extremities: No cyanosis Skin: No rashes Review of Systems Review of Systems: General: No fever, chills, nausea CV: No Chest Pain GI: No Abdominal Pain, vomiting, diarrhea Pulm: No Increase Cough, Pt complains of SOB- but feels is improving Assessment and Plan Assessmemt and Plan Assessment: 1. Acute on chronic systolic and diastolic heart failure 2. Acute on Chronic Respiratory Failure 3. Hypokalemia 4. AFIB with Ventricular Pacing 5. Anemia 6. HTN 7. Hyperlipidemia 8. Asthma 9. COPD 10. ASHLEY on CKD3 11. Noncompliance 12. Hx of polysubstance abuse 13. Hx of tobaccoism Plan: 1. Continue Amiodarone for rhythm maintenance AFIB. 2. Continue Eliquis for stroke prevention- AFIB. 3. Continue Milrinone 4. Continue Lasix drip. 5. Albumin given 6. PO Potassium replacement 7. DVT ppx 8. Continue Low Na diet 9. 1.5 L fluid restriction 10. Will need referral to HF clinic for outpt follow up. 11. Social work for DC planning, plan to discharge to rehab when medically stable 12. Trend labs 13. Cardiology and Pulm consulted and following. We appreciate their input. 14. Monitor renal function - stable 15. Physical therapy/Occupational Therapy 16. Continue BiPAP/trilogy at night Comment Review of Relevant I have reviewed the following items rishi (where applicable) has been applied. Justifications for Admission Other Justification CHF vs COPD exacerbation hypoxic resp fail KINA CONTRERAS III DO Mar 10, 2020 12:55
--- NOTE | 2020-03-10 13:47 | PDOC ---
PROGRESS NOTES Date of Service: DATE: 03/10/20 TIME: 13:44 Subjective Subjective Dyspnea improving slowly Objective Objective Vital Signs Date Time Temp Pulse Resp B/P (MAP) Pulse Ox O2 Delivery O2 Flow Rate FiO2 03/10/20 12:32 92 Nasal Cannula 6.0 03/10/20 11:00 98.4 69 12 147/86 (106) 98.4 Intake and Output 03/10/20 07:00 Intake Total 1180 ml Output Total 2500 ml Balance -1320 ml Intake Oral 1180 ml Output Urine Total 2500 ml # Bowel Movements 3 Physical Exam Abdomen: Soft Heart: Regular rate, Other (S1-S2 soft S3) Extremities: No cyanosis, Other (1-2+ pitting edema) General: Alert, mild distress HEENT: Atraumatic, Mucous membr. moist/pink Lungs: Other (Bilateral basal crepitations) Neck: Supple Neuro: Normal speech, Normal tone Skin: No rashes Assessment Assessment 1. Acute on chronic respiratory failure, multifactorial. Pulmonary team following. 2. Acute on chronic combined systolic/diastolic CHF: Improving slowly. Continue milrinone and Lasix drips. 3. SSS/ NICM s/p BiV PPM/[employer]ODUCTION [employer]PER[employer]OR-P (Biotronik); LVEF 20-25%. Recent device check revealed 31% AFIB burden with no significant RVR episodes since amiodarone. normal function, BiV pacing 100% 4. Chronic mild troponin elevation; peak 0.153 with h/o chronic troponin elevation. Type II. demand ischemia. CP free. Consider ischemic evaluation once better compensated. 5. PAFIB; V paced. Continue amiodarone for rhythm maintenance and Eliquis for stroke prophylaxis. 6. HTN: controlled 7. ASHLEY on CKD3 8. Hx of tobaccoism, cocaine and marijuana use. Has been sober 9. COPD 10. NSVT: No further episodes noted on telemetry. Plan Plan of Care Problems Medical Problems: (1) CHF exacerbation Status: Acute (2) Dyspnea Status: Acute (3) Elevated troponin Status: Acute Comment Review of Relevant I have reviewed the following items rishi (where applicable) has been applied. Medications Current Medications Apixaban (Eliquis) 5 mg BID PO ; Start 03/10/20 at 09:00; Stop 03/09/20 at 12:40; Status DC Vitals/I & O Vital Sign - Last 24 Hours 03/09/20 03/09/20 03/09/20 03/09/20 14:00 14:43 15:00 16:00 Temp 98.2 98.2 Pulse 68 69 68 68 Resp 24 B/P (MAP) 143/94 (110) 131/84 (100) 144/90 (108) 151/102 (118) Pulse Ox 97 O2 Delivery Nasal Cannula O2 Flow Rate 8.0 03/09/20 03/09/20 03/09/20 03/09/20 16:04 17:00 19:44 20:00 Temp 98.2 98.2 Pulse 71 Resp 24 B/P (MAP) 128/81 (97) 128/75 (92) Pulse Ox 94 97 O2 Delivery Nasal Cannula Nasal Cannula Nasal Cannula O2 Flow Rate 8.0 8.0 8.0 03/09/20 03/09/20 03/10/20 03/10/20 20:19 22:44 00:50 02:29 Temp 98.2 98.1 98.2 98.1 Pulse 71 71 Resp 24 12 B/P (MAP) 151/94 (113) 137/85 (102) Pulse Ox 100 91 95 100 O2 Delivery Nasal Cannula Nasal Cannula BiPAP/CPAP BiPAP/CPAP O2 Flow Rate 8.0 8.0 03/10/20 03/10/20 03/10/20 03/10/20 04:15 07:00 08:00 08:18 Temp 98.8 98.8 Pulse 69 69 Resp 12 B/P (MAP) 150/88 (108) 150/88 Pulse Ox 97 94 O2 Delivery BiPAP/CPAP BiPAP/CPAP Nasal Cannula O2 Flow Rate 7.0 03/10/20 03/10/20 03/10/20 03/10/20 08:19 08:20 08:35 08:38 Pulse 69 69 B/P (MAP) 150/88 150/88 Pulse Ox 100 98 O2 Delivery Nasal Cannula O2 Flow Rate 8.0 7.0 03/10/20 03/10/20 11:00 12:32 Temp 98.4 98.4 Pulse 69 Resp 12 B/P (MAP) 147/86 (106) Pulse Ox 95 92 O2 Delivery BiPAP/CPAP Nasal Cannula O2 Flow Rate 6.0 Intake and Output 03/09/20 03/09/20 03/10/20 15:00 23:00 07:00 Intake Total 1060 ml 120 ml 0 ml Output Total 1250 ml 825 ml 425 ml Balance -190 ml -705 ml -425 ml KENIA SHEPHERD MD Mar 10, 2020 13:47
[2020-03-10 15:00] VITALS: BP 138/83
[2020-03-10 19:25] VITALS: BP 144/89
[2020-03-10] MEDS: SIMVASTATIN 20 MG TABLET PO SCH (21:28)
[2020-03-10 22:45] VITALS: BP 141/86
[2020-03-11] MEDS: IPRATRPIUM/ALBUTEROL 0.5/2.5MG 3 ML NEBU. NEB SCH ×5 (00:53→19:57)
[2020-03-11] MEDS: FUROSEMIDE INJ 100 MG in IV NORMAL SALINE 100ML 100 ML IV PRN ×2 (01:28→22:01)
[2020-03-11] MEDS: MILRINONE 20MG/100ML PREMIX 100 ML IV PRN ×2 (01:28→16:45)
[2020-03-11 03:50] VITALS: BP 137/79
[2020-03-11 04:57] LABS: BASO # 0.1 x10^3/uL (0.0-0.2); BASO % 1 % (0-3); EOS # 0.2 x10^3/uL (0.0-0.7); EOS % 3 % (0-3); HEMATOCRIT 32.5 % (39.0-53.0); HEMOGLOBIN 10.5 g/dL (13.0-17.5); LYMPH # 0.6 x10^3/uL (1.0-4.8); LYMPH % 13 % (24-48); MEAN CORPUSCULAR HEMOGLOBIN 28 pg (25-35); MEAN CORPUSCULAR HGB CONC 32 g/dL (31-37); MEAN CORPUSCULAR VOLUME 87 fL (79-100); MONO # 0.6 x10^3/uL (0.0-1.1); MONO % 12 % (0-9); NEUT # 3.5 x10^3/uL (1.8-7.7); NEUT % 70 % (31-73); PLATELET COUNT 131 x10^3/uL (140-400); RED BLOOD COUNT 3.73 x10^6/uL (4.30-5.70); RED CELL DISTRIBUTION WIDTH 16.5 % (11.5-14.5)
[2020-03-11 05:33] LABS: ALBUMIN 2.9 g/dL (3.4-5.0); ALBUMIN/GLOBULIN RATIO 0.9 (1.0-1.7); CALCIUM 9.6 mg/dL (8.5-10.1); CREATININE 1.6 mg/dL (0.7-1.3); GFR 53.1; POTASSIUM 3.6 mmol/L (3.5-5.1); TOTAL BILIRUBIN 0.5 mg/dL (0.2-1.0); TOTAL PROTEIN 6.2 g/dL (6.4-8.2)
--- NOTE | 2020-03-11 06:47 | PDOC ---
PULMONARY PROGRESS NOTES DATE: 03/11/20 TIME: 06:47 Subjective on bipap 40% fio2 8 L nasal cannula during day sob better has occ cough on Lasix drip and milrinone drip Afebrile overnight Vitals Vital Signs Date Time Temp Pulse Resp B/P (MAP) Pulse Ox O2 Delivery O2 Flow Rate FiO2 03/11/20 03:50 97.7 67 22 137/79 (98) 97 BiPAP/CPAP 97.7 03/10/20 22:45 8.0 ROS: No Nausea, No Chest Pain, No Abdominal Pain, No Increase Cough General: Alert, Oriented X4, No acute distress HEENT: Other (nc at ) Lungs: Crackles Cardiovascular: S1, S2 Abdomen: Soft, Non-tender, Other Extremities: Other (BLE +2) Skin: Warm Labs Laboratory Tests Test 03/11/20 04:30 White Blood Count 5.0 x10^3/uL (4.0-11.0) Red Blood Count 3.73 x10^6/uL (4.30-5.70) Hemoglobin 10.5 g/dL (13.0-17.5) Hematocrit 32.5 % (39.0-53.0) Mean Corpuscular Volume 87 fL (79-100) Mean Corpuscular Hemoglobin 28 pg (25-35) Mean Corpuscular Hemoglobin Concent 32 g/dL (31-37) Red Cell Distribution Width 16.5 % (11.5-14.5) Platelet Count 131 x10^3/uL (140-400) Neutrophils (%) (Auto) 70 % (31-73) Lymphocytes (%) (Auto) 13 % (24-48) Monocytes (%) (Auto) 12 % (0-9) Eosinophils (%) (Auto) 3 % (0-3) Basophils (%) (Auto) 1 % (0-3) Neutrophils # (Auto) 3.5 x10^3/uL (1.8-7.7) Lymphocytes # (Auto) 0.6 x10^3/uL (1.0-4.8) Monocytes # (Auto) 0.6 x10^3/uL (0.0-1.1) Eosinophils # (Auto) 0.2 x10^3/uL (0.0-0.7) Basophils # (Auto) 0.1 x10^3/uL (0.0-0.2) Sodium Level 143 mmol/L (136-145) Potassium Level 3.6 mmol/L (3.5-5.1) Chloride Level 106 mmol/L (98-107) Carbon Dioxide Level 37 mmol/L (21-32) Anion Gap 0 (6-14) Blood Urea Nitrogen 24 mg/dL (8-26) Creatinine 1.6 mg/dL (0.7-1.3) Estimated GFR (Cockcroft-Gault) 53.1 BUN/Creatinine Ratio 15 (6-20) Glucose Level 86 mg/dL (70-99) Calcium Level 9.6 mg/dL (8.5-10.1) Total Bilirubin 0.5 mg/dL (0.2-1.0) Aspartate Amino Transf (AST/SGOT) 14 U/L (15-37) Alanine Aminotransferase (ALT/SGPT) 16 U/L (16-63) Alkaline Phosphatase 55 U/L (46-116) Total Protein 6.2 g/dL (6.4-8.2) Albumin 2.9 g/dL (3.4-5.0) Albumin/Globulin Ratio 0.9 (1.0-1.7) Laboratory Tests Test 03/11/20 04:30 White Blood Count 5.0 x10^3/uL (4.0-11.0) Red Blood Count 3.73 x10^6/uL (4.30-5.70) Hemoglobin 10.5 g/dL (13.0-17.5) Hematocrit 32.5 % (39.0-53.0) Mean Corpuscular Volume 87 fL (79-100) Mean Corpuscular Hemoglobin 28 pg (25-35) Mean Corpuscular Hemoglobin Concent 32 g/dL (31-37) Red Cell Distribution Width 16.5 % (11.5-14.5) Platelet Count 131 x10^3/uL (140-400) Neutrophils (%) (Auto) 70 % (31-73) Lymphocytes (%) (Auto) 13 % (24-48) Monocytes (%) (Auto) 12 % (0-9) Eosinophils (%) (Auto) 3 % (0-3) Basophils (%) (Auto) 1 % (0-3) Neutrophils # (Auto) 3.5 x10^3/uL (1.8-7.7) Lymphocytes # (Auto) 0.6 x10^3/uL (1.0-4.8) Monocytes # (Auto) 0.6 x10^3/uL (0.0-1.1) Eosinophils # (Auto) 0.2 x10^3/uL (0.0-0.7) Basophils # (Auto) 0.1 x10^3/uL (0.0-0.2) Sodium Level 143 mmol/L (136-145) Potassium Level 3.6 mmol/L (3.5-5.1) Chloride Level 106 mmol/L (98-107) Carbon Dioxide Level 37 mmol/L (21-32) Anion Gap 0 (6-14) Blood Urea Nitrogen 24 mg/dL (8-26) Creatinine 1.6 mg/dL (0.7-1.3) Estimated GFR (Cockcroft-Gault) 53.1 BUN/Creatinine Ratio 15 (6-20) Glucose Level 86 mg/dL (70-99) Calcium Level 9.6 mg/dL (8.5-10.1) Total Bilirubin 0.5 mg/dL (0.2-1.0) Aspartate Amino Transf (AST/SGOT) 14 U/L (15-37) Alanine Aminotransferase (ALT/SGPT) 16 U/L (16-63) Alkaline Phosphatase 55 U/L (46-116) Total Protein 6.2 g/dL (6.4-8.2) Albumin 2.9 g/dL (3.4-5.0) Albumin/Globulin Ratio 0.9 (1.0-1.7) Medications Active Scripts Medications Dose Route/Sig Max Daily Dose Days Date Category Dose Instructions Bumetanide 1 Mg Tablet 1 Mg PO BID 03/04/20 Rx Amiodarone Hcl 200 Mg Tablet 200 Mg PO DAILY 03/04/20 Rx Potassium Chloride (Potassium Chloride) 20 Meq Tablet.er 20 Meq PO DAILY 30 02/02/20 Rx NICODERM CQ 21mg (Nicotine) 1 Each Patch.td24 1 Patch TP DAILY 01/28/20 Reported Eliquis (Apixaban) 5 Mg Tablet 5 Mg PO BID 08/02/19 Reported Toprol Xl (Metoprolol Succinate) 25 Mg Tab.er.24h 1 Tab PO DAILY 30 08/02/19 Reported Lisinopril 40 Mg Tablet 20 Mg PO DAILY 30 05/10/19 Rx Duoneb 0.5-3(2.5) Mg/3 Ml (Albuterol/Ipratropium) 3 Ml Ampul.neb 3 Ml NEB Q4HRS 30 05/09/19 Rx Albuterol Sulfate Neb Soln (Albuterol Sulfate) 0.63 Mg/3 Ml Vial.neb 0.63 Mg NEB PRN Q4HRS PRN 30 10/13/16 Rx NEEDED Zocor (Simvastatin) 20 Mg Tablet 20 Mg PO HS 10/27/14 Reported NEXT DOSE DUE TONIGHT AT BEDTIME Comments CXR Impression: 1. Findings again suggest volume overload with cardiomegaly. Trace effusions are reidentified. Impression . IMPRESSION: 1. Acute on chronic respiratory failure, multifactorial. 2. Acute on chronic systolic and diastolic heart failure. 3. Sick sinus syndrome, status post biventricular pacemaker. 4. Nonischemic cardiomyopathy. 5. Chronic troponin elevation. 6. Paroxysmal atrial fibrillation. 7. Hypertension. 8. Severe chronic obstructive pulmonary disease. 9. Tobacco dependence, in remission. 10. Non-ST segment elevation myocardial infarction. Plan . PLAN: Continue supplemental oxygen, titrate fio2 to keep sat 90% Continue BiPAP/trilogy at night Follow chest x-ray as needed Bronchodilators as needed Follow cardiology recommendations, diuresis per cardiology, currently on milrinone drip and Lasix drip Hypertension Per PCP and cardiology-- LVEF 20-25%. Monitor renal function -- stable Social work for DC planning, plan to discharge to rehab when medically stable Physical therapy/Occupational Therapy DVT/GI prophylaxis: Eliquis and Protonix Discussed with RN PT. is FULL CODE TERRI HERBERT MD Mar 11, 2020 06:47
[2020-03-11 07:00] VITALS: BP 144/86
[2020-03-11] MEDS: NICOTINE 21MG PATCH. TD SCH (08:49)
[2020-03-11] MEDS: APIXABAN 5 MG TABLET. PO SCH ×2 (08:50→22:00)
[2020-03-11] MEDS: AMIODARONE HCL 200 MG TABLET. PO SCH (08:50)
[2020-03-11] MEDS: LISINOPRIL 20 MG TABLET PO SCH (08:50)
[2020-03-11] MEDS: POTASSIUM CHLORIDE 20 MEQ TABLET.ER. PO SCH ×2 (08:50→17:13)
[2020-03-11] MEDS: PANTOPRAZOLE 40 MG TABLET.DR. PO SCH (08:50)
[2020-03-11] MEDS: METOPROLOL SUCC 24HR ER 25 MG TAB.ER.24H. PO SCH (08:51)
--- NOTE | 2020-03-11 09:56 | NUR ---
Patient was to discharge to [facility] this shift. Per MD Efren patient not ready to discharge at this time. Patient is not at goal weight for discharge. Patient is on a 1.5L fluid restriction. Patient is non complaint with fluid restriction. Patient has been educated on the importance of following the fluid restriction. MD Jasmeet notified also of the non complaince of his fluid restriction.
--- NOTE | 2020-03-11 10:56 | PDOC ---
PROGRESS NOTES Date of Service: DATE: 03/11/20 TIME: 10:54 Subjective Subjective Dyspnea improved. Edema improving slowly. Denied any chest pain. Objective Objective Vital Signs Date Time Temp Pulse Resp B/P (MAP) Pulse Ox O2 Delivery O2 Flow Rate FiO2 03/11/20 08:51 69 144/86 03/11/20 07:56 96 Nasal Cannula 6.0 03/11/20 07:00 99.0 18 99.0 Intake and Output 03/11/20 07:00 Intake Total 1400 ml Output Total 2075 ml Balance -675 ml Intake Oral 1400 ml Output Urine Total 2075 ml # Bowel Movements 1 Physical Exam Abdomen: Soft Heart: Regular rate, Other (S1-S2 soft S3) Extremities: No cyanosis, Other (1-2+ pitting edema) General: Alert, mild distress HEENT: Atraumatic, Mucous membr. moist/pink Lungs: Other (Bilateral basal crepitations) Neck: Supple Neuro: Normal speech, Normal tone Skin: No rashes Assessment Assessment 1. Acute on chronic respiratory failure, multifactorial. Pulmonary team following. 2. Acute on chronic combined systolic/diastolic CHF: Improving slowly. Patient apparently drinking a lot of water despite placing fluid restriction, per nursing personnel. Importance of compliance reemphasized. Continue milrinone and Lasix drips. 3. SSS/ NICM s/p BiV PPM/SIDE LASTER STAPLE-P (Biotronik); LVEF 20-25%. Recent device check revealed 31% AFIB burden with no significant RVR episodes since amiodarone. normal function, BiV pacing 100% 4. Chronic mild troponin elevation; peak 0.153 with h/o chronic troponin elevation. Type II. demand ischemia. CP free. Consider ischemic evaluation once better compensated. 5. PAFIB; V paced. Continue amiodarone for rhythm maintenance and Eliquis for stroke prophylaxis. 6. HTN: controlled 7. ASHLEY on CKD3 8. Hx of tobaccoism, cocaine and marijuana use. Has been sober 9. COPD 10. NSVT: No further episodes noted on telemetry. Plan Plan of Care Problems Medical Problems: (1) CHF exacerbation Status: Acute (2) Dyspnea Status: Acute (3) Elevated troponin Status: Acute Comment Review of Relevant I have reviewed the following items rishi (where applicable) has been applied. Labs Laboratory Tests Test 03/11/20 04:30 White Blood Count 5.0 x10^3/uL (4.0-11.0) Red Blood Count 3.73 x10^6/uL (4.30-5.70) Hemoglobin 10.5 g/dL (13.0-17.5) Hematocrit 32.5 % (39.0-53.0) Mean Corpuscular Volume 87 fL (79-100) Mean Corpuscular Hemoglobin 28 pg (25-35) Mean Corpuscular Hemoglobin Concent 32 g/dL (31-37) Red Cell Distribution Width 16.5 % (11.5-14.5) Platelet Count 131 x10^3/uL (140-400) Neutrophils (%) (Auto) 70 % (31-73) Lymphocytes (%) (Auto) 13 % (24-48) Monocytes (%) (Auto) 12 % (0-9) Eosinophils (%) (Auto) 3 % (0-3) Basophils (%) (Auto) 1 % (0-3) Neutrophils # (Auto) 3.5 x10^3/uL (1.8-7.7) Lymphocytes # (Auto) 0.6 x10^3/uL (1.0-4.8) Monocytes # (Auto) 0.6 x10^3/uL (0.0-1.1) Eosinophils # (Auto) 0.2 x10^3/uL (0.0-0.7) Basophils # (Auto) 0.1 x10^3/uL (0.0-0.2) Sodium Level 143 mmol/L (136-145) Potassium Level 3.6 mmol/L (3.5-5.1) Chloride Level 106 mmol/L (98-107) Carbon Dioxide Level 37 mmol/L (21-32) Anion Gap 0 (6-14) Blood Urea Nitrogen 24 mg/dL (8-26) Creatinine 1.6 mg/dL (0.7-1.3) Estimated GFR (Cockcroft-Gault) 53.1 BUN/Creatinine Ratio 15 (6-20) Glucose Level 86 mg/dL (70-99) Calcium Level 9.6 mg/dL (8.5-10.1) Total Bilirubin 0.5 mg/dL (0.2-1.0) Aspartate Amino Transf (AST/SGOT) 14 U/L (15-37) Alanine Aminotransferase (ALT/SGPT) 16 U/L (16-63) Alkaline Phosphatase 55 U/L (46-116) Total Protein 6.2 g/dL (6.4-8.2) Albumin 2.9 g/dL (3.4-5.0) Albumin/Globulin Ratio 0.9 (1.0-1.7) Medications Current Medications Albuterol/ Ipratropium (Duoneb) 3 ml Q4HRS W/A NEB Last administered on 03/11/20at 07:55; Start 03/11/20 at 06:00 Vitals/I & O Vital Sign - Last 24 Hours 03/10/20 03/10/20 03/10/20 03/10/20 11:00 12:32 15:00 16:26 Temp 98.4 98.6 98.4 98.6 Pulse 69 69 Resp 12 12 B/P (MAP) 147/86 (106) 138/83 (101) Pulse Ox 95 92 96 96 O2 Delivery BiPAP/CPAP Nasal Cannula BiPAP/CPAP Nasal Cannula O2 Flow Rate 6.0 6.0 03/10/20 03/10/20 03/10/20 03/10/20 19:25 20:00 20:31 22:45 Temp 99.0 98.6 99.0 98.6 Pulse 72 69 Resp 22 20 B/P (MAP) 144/89 (107) 141/86 (104) Pulse Ox 93 97 97 O2 Delivery Nasal Cannula Nasal Cannula Nasal Cannula Nasal Cannula O2 Flow Rate 8.0 8.0 6.0 8.0 03/11/20 03/11/20 03/11/20 03/11/20 00:53 03:50 04:00 07:00 Temp 97.7 99.0 97.7 99.0 Pulse 67 69 Resp 22 18 B/P (MAP) 137/79 (98) 144/86 (105) Pulse Ox 97 97 97 94 O2 Delivery BiPAP/CPAP BiPAP/CPAP BiPAP/CPAP Nasal Cannula O2 Flow Rate 8.0 03/11/20 03/11/20 03/11/20 03/11/20 07:56 08:50 08:50 08:51 Pulse 69 69 69 B/P (MAP) 144/86 144/86 144/86 Pulse Ox 96 O2 Delivery Nasal Cannula O2 Flow Rate 6.0 Intake and Output 03/10/20 03/10/20 03/11/20 15:00 23:00 07:00 Intake Total 800 ml 600 ml 0 ml Output Total 300 ml 1075 ml 700 ml Balance 500 ml -475 ml -700 ml KENIA SHEPHERD MD Mar 11, 2020 10:56
[2020-03-11 11:00] VITALS: BP 148/92
--- NOTE | 2020-03-11 11:22 | PDOC ---
[employer] PROGRESS NOTE Date of Service DOS: DATE: 03/11/20 TIME: 11: Chief Complaint Chief Complaint Acute on chronic systolic and diastolic heart failure Prior history of cocaine abuse Noncompliance Hypokalemia Anemia HTN Hyperlipidemia Asthma COPD History of Present Illness History of Present Illness 03/06/20 HPI: "SEEN IN ER WITH WORSENING SOA, 34 year old AA male who presents to the emergency room via EMS with complaints of increased shortness of breath, and an increased cough with pink sputum since yesterday. Patient denies any known Covid-19 exposure. Patient reports that he was admitted a few weeks ago for a COPD exacerbation and he was discharged home on February 26. He denies any chest pain, palpitations, nausea, vomiting, diarrhea, abdominal pain, sore throat, or headache. reports that his breathing has become more labored. TROPONIN I MILDLY ELEVATED." 03/07/2020 Patient seen and examined Discussed with RN Chart reviewed 03/08/20 Pt seen and examined in room. LEFTY RN regarding fluid restriction and low sodium diet. Chart reviewed. Pt claims breathing is improving and denies any chest pain. 03/08/20 No acute events overnight. Currently on milirnone and lasix gtt. Goal weight of 85 kg. 03/10/20 Pt seen and examined in room. Pt currently on nasal canula with lasix and milrinone drip. Pt claims his breathing has improved since yesterday and denies any chest pain. Pt claims he is adhering to the diet and fluid restrictions. LEFTY nurse. LEFTY cardiology. 03/11/2020 Patient seen and examined in bedside. Patient currently saturating 96% on 8 L nasal cannula. -675 cc fluid balance in the past 24 hours. No complaints voiced at this time. Tolerating breakfast. Patient's chart, labs, images were reviewed and discussed with RN Vitals/I&O Vitals/I&O: Vital Signs Date Time Temp Pulse Resp B/P (MAP) Pulse Ox O2 Delivery O2 Flow Rate FiO2 03/11/20 08:51 69 144/86 03/11/20 08:00 Nasal Cannula 8.0 03/11/20 07:56 96 03/11/20 07:00 99.0 18 99.0 I & O 03/10/20 03/10/20 03/11/20 15:00 23:00 07:00 Intake Total 800 ml 600 ml 0 ml Output Total 300 ml 1075 ml 700 ml Balance 500 ml -475 ml -700 ml Physical Exam General: Alert, mild distress Heart: Regular rate, Other (S1-S2 soft S3) Lungs: Crackles Abdomen: Soft Extremities: No cyanosis, Other (1-2+ pitting edema) Skin: No rashes Labs Labs: Laboratory Tests Test 03/11/20 04:30 White Blood Count 5.0 x10^3/uL (4.0-11.0) Red Blood Count 3.73 x10^6/uL (4.30-5.70) Hemoglobin 10.5 g/dL (13.0-17.5) Hematocrit 32.5 % (39.0-53.0) Mean Corpuscular Volume 87 fL (79-100) Mean Corpuscular Hemoglobin 28 pg (25-35) Mean Corpuscular Hemoglobin Concent 32 g/dL (31-37) Red Cell Distribution Width 16.5 % (11.5-14.5) Platelet Count 131 x10^3/uL (140-400) Neutrophils (%) (Auto) 70 % (31-73) Lymphocytes (%) (Auto) 13 % (24-48) Monocytes (%) (Auto) 12 % (0-9) Eosinophils (%) (Auto) 3 % (0-3) Basophils (%) (Auto) 1 % (0-3) Neutrophils # (Auto) 3.5 x10^3/uL (1.8-7.7) Lymphocytes # (Auto) 0.6 x10^3/uL (1.0-4.8) Monocytes # (Auto) 0.6 x10^3/uL (0.0-1.1) Eosinophils # (Auto) 0.2 x10^3/uL (0.0-0.7) Basophils # (Auto) 0.1 x10^3/uL (0.0-0.2) Sodium Level 143 mmol/L (136-145) Potassium Level 3.6 mmol/L (3.5-5.1) Chloride Level 106 mmol/L (98-107) Carbon Dioxide Level 37 mmol/L (21-32) Anion Gap 0 (6-14) Blood Urea Nitrogen 24 mg/dL (8-26) Creatinine 1.6 mg/dL (0.7-1.3) Estimated GFR (Cockcroft-Gault) 53.1 BUN/Creatinine Ratio 15 (6-20) Glucose Level 86 mg/dL (70-99) Calcium Level 9.6 mg/dL (8.5-10.1) Total Bilirubin 0.5 mg/dL (0.2-1.0) Aspartate Amino Transf (AST/SGOT) 14 U/L (15-37) Alanine Aminotransferase (ALT/SGPT) 16 U/L (16-63) Alkaline Phosphatase 55 U/L (46-116) Total Protein 6.2 g/dL (6.4-8.2) Albumin 2.9 g/dL (3.4-5.0) Albumin/Globulin Ratio 0.9 (1.0-1.7) Assessment and Plan Assessmemt and Plan Problems Medical Problems: (1) CHF exacerbation Status: Acute (2) Dyspnea Status: Acute (3) Elevated troponin Status: Acute Comment Review of Relevant I have reviewed the following items rishi (where applicable) has been applied. Medications: Current Medications Medications (Trade) Dose Ordered Sig/Dex Route PRN Reason Start Time Stop Time Status Last Admin Dose Admin Albuterol/ Ipratropium (Duoneb) 3 ml Q4HRS W/A NEB 03/11/20 06:00 03/11/20 07:55 Justifications for Admission Other Justification CHF vs COPD exacerbation hypoxic resp fail ANT ALVAREZ MD Mar 11, 2020 11:22
[2020-03-11 15:00] VITALS: BP 131/81
[2020-03-11 19:10] VITALS: BP 139/87
[2020-03-11] MEDS: SIMVASTATIN 20 MG TABLET PO SCH (22:00)
[2020-03-11 22:55] VITALS: BP 151/94
[2020-03-12] MEDS: IPRATRPIUM/ALBUTEROL 0.5/2.5MG 3 ML NEBU. NEB SCH ×4 (00:05→16:04)
[2020-03-12 03:00] VITALS: BP 148/88
[2020-03-12 07:00] VITALS: BP 151/102
[2020-03-12] MEDS: MILRINONE 20MG/100ML PREMIX 100 ML IV PRN (07:58)
[2020-03-12 08:04] LABS: BASO % 1 % (0-3); EOS # 0.2 x10^3/uL (0.0-0.7); EOS % 4 % (0-3); HEMATOCRIT 32.8 % (39.0-53.0); HEMOGLOBIN 10.6 g/dL (13.0-17.5); LYMPH # 0.6 x10^3/uL (1.0-4.8); LYMPH % 13 % (24-48); MEAN CORPUSCULAR HEMOGLOBIN 28 pg (25-35); MEAN CORPUSCULAR HGB CONC 32 g/dL (31-37); MEAN CORPUSCULAR VOLUME 88 fL (79-100); MONO # 0.5 x10^3/uL (0.0-1.1); MONO % 11 % (0-9); NEUT # 3.4 x10^3/uL (1.8-7.7); NEUT % 72 % (31-73); PLATELET COUNT 130 x10^3/uL (140-400); RED BLOOD COUNT 3.73 x10^6/uL (4.30-5.70); RED CELL DISTRIBUTION WIDTH 16.6 % (11.5-14.5); WHITE BLOOD COUNT 4.8 x10^3/uL (4.0-11.0)
[2020-03-12 08:21] LABS: ALBUMIN 2.9 g/dL (3.4-5.0); ALBUMIN/GLOBULIN RATIO 0.9 (1.0-1.7); CALCIUM 9.2 mg/dL (8.5-10.1); CREATININE 1.5 mg/dL (0.7-1.3); GFR 57.2; POTASSIUM 3.3 mmol/L (3.5-5.1); TOTAL BILIRUBIN 0.6 mg/dL (0.2-1.0); TOTAL PROTEIN 6.3 g/dL (6.4-8.2)
[2020-03-12] MEDS: POTASSIUM CHLORIDE 20 MEQ TABLET.ER. PO SCH (10:36)
[2020-03-12] MEDS: APIXABAN 5 MG TABLET. PO SCH (10:36)
[2020-03-12] MEDS: PANTOPRAZOLE 40 MG TABLET.DR. PO SCH (10:37)
[2020-03-12] MEDS: LISINOPRIL 20 MG TABLET PO SCH (10:37)
[2020-03-12] MEDS: METOPROLOL SUCC 24HR ER 25 MG TAB.ER.24H. PO SCH (10:37)
[2020-03-12] MEDS: AMIODARONE HCL 200 MG TABLET. PO SCH (10:38)
[2020-03-12] MEDS: NICOTINE 21MG PATCH. TD SCH (10:38)
[2020-03-12 11:00] VITALS: BP 132/85
--- NOTE | 2020-03-12 11:50 | SNU/HH DC ---
DISCHARGE ORDERS DISCHARGE INFORMATION: DISCHARGE DATE: Mar 12, 2020 FINAL DIAGNOSIS Problems Medical Problems: (1) CHF exacerbation Status: Acute (2) Dyspnea Status: Acute (3) Elevated troponin Status: Acute CONDITION ON DISCHARGE: Stable CODE STATUS: Code Status: Full FDC: SNF STAY <30 DAYS: Yes POST DISCHARGE ORDERS: ACTIVITY ORDERS: Activity as tolerated WEIGHT BEARING STATUS: Full weight bearing, As tolerated DIET AFTER DISCHARGE: Cardiac WOUND/INCISION CARE: No wound care needed CHECKS AFTER DISCHARGE: CHECKS AFTER DISCHARGE: Check blood press - daily, Check your Temp as needed, Weigh Yourself Daily TREATMENT/EQUIPMENT ORDERS: ADAPTIVE EQUIPMENT NEEDED: None RESPIRATORY EQUIPMENT NEEDED: Oxygen Physical Therapy For: Evalulation/Treatment Occupational Therapy For: Evaluation/Treatment DISCHARGE MEDICATIONS: Home Meds Active Scripts Bumetanide (BUMETANIDE) 1 Mg Tablet, 1 MG PO BID for Heart Failure, #60 TAB 3 Refills Prov:PENNIE GONZALEZ MD 03/04/20 Amiodarone Hcl (AMIODARONE HCL) 200 Mg Tablet, 200 MG PO DAILY for A-fib, #30 TAB 3 Refills Prov:PENNIE GONZALEZ MD 03/04/20 Potassium Chloride (POTASSIUM CHLORIDE ) 20 Meq Tablet.er, 20 MEQ PO DAILY for SUPPLEMENT for 30 Days, #30 TAB.SR 2 Refills Prov:CARMEN OROZCO MD 02/02/20 Lisinopril (LISINOPRIL) 40 Mg Tablet, 20 MG PO DAILY for HTN for 30 Days, #15 TAB Prov:HIREN ZHOU MD 05/10/19 Ipratropium/Albuterol Sulfate (DUONEB 0.5-3(2.5) MG/3 ML) 3 Ml Ampul.neb, 3 ML NEB Q4HRS for COPD for 30 Days, #180 EACH Prov:HIREN ZHOU MD 05/09/19 Albuterol Sulfate (ALBUTEROL SULFATE NEB SOLN) 0.63 Mg/3 Ml Vial.neb, 0.63 MG NEB PRN Q4HRS PRN for SHORTNESS OF BREATH for 30 Days, #100 EACH 2 Refills NEEDED Prov:LOU HERNANDEZ MD 10/13/16 Reported Medications Nicotine (NICODERM CQ 21mg) 1 Each Patch.td24, 1 PATCH TP DAILY for smoking cessation, #28 PATCH 1 Refill 01/28/20 Apixaban (ELIQUIS) 5 Mg Tablet, 5 MG PO BID for blood thinner, TAB 08/02/19 Metoprolol Succinate (TOPROL XL) 25 Mg Tab.er.24h, 1 TAB PO DAILY for blood pressure for 30 Days, #30 TAB 0 Refills 08/02/19 Simvastatin (ZOCOR) 20 Mg Tablet, 20 MG PO HS for FOR CHOLESTEROL, #30 TAB 0 Refills NEXT DOSE DUE TONIGHT AT BEDTIME 10/27/14 HIREN ZHOU MD Mar 12, 2020 11:50
--- NOTE | 2020-03-12 11:53 | PDOC3 ---
Discharge Summary Visit Information Date of Admission: Mar 06, 2020 Date of Discharge: Mar 12, 2020 Admitting Diagnosis Comment: Acute exac of CHF Findings cxr, suggest volume overload with cardiomegaly. Trace pleural effusions acute hypoxic respiratory failure Left ventricle systolic function is moderately impaired. recent echo Ejection Fraction is 20 %. Chronic respiratory failure, multifactorial secondary to chronic obstructive pulmonary disease and chronic heart failure. Acute on chronic systolic heart failure. Acute on chronic cor pulmonale. Chronic obstructive pulmonary disease, tobacco dependence, in remission. hx polysubstance use. including cocaine Final Diagnosis Problems Medical Problems: (1) CHF exacerbation Status: Acute (2) Dyspnea Status: Acute (3) Elevated troponin Status: Acute Acute on chronic systolic and diastolic heart failure Prior history of cocaine abuse Noncompliance Hypokalemia Anemia HTN Hyperlipidemia Asthma COPD Brief Hospital Course Allergies Allergies Coded Allergies Type Severity Reaction Last Updated Verified levofloxacin Allergy Intermediate Itching 01/28/20 Yes Vital Signs Vital Signs Date Time Temp Pulse Resp B/P (MAP) Pulse Ox O2 Delivery O2 Flow Rate FiO2 03/12/20 10:38 69 151/102 03/12/20 07:46 98 Nasal Cannula 6.0 03/12/20 07:00 97.9 20 97.9 Lab Results Laboratory Tests Test 03/11/20 04:30 03/12/20 06:50 White Blood Count 5.0 x10^3/uL (4.0-11.0) 4.8 x10^3/uL (4.0-11.0) Red Blood Count 3.73 x10^6/uL (4.30-5.70) 3.73 x10^6/uL (4.30-5.70) Hemoglobin 10.5 g/dL (13.0-17.5) 10.6 g/dL (13.0-17.5) Hematocrit 32.5 % (39.0-53.0) 32.8 % (39.0-53.0) Mean Corpuscular Volume 87 fL (79-100) 88 fL (79-100) Mean Corpuscular Hemoglobin 28 pg (25-35) 28 pg (25-35) Mean Corpuscular Hemoglobin Concent 32 g/dL (31-37) 32 g/dL (31-37) Red Cell Distribution Width 16.5 % (11.5-14.5) 16.6 % (11.5-14.5) Platelet Count 131 x10^3/uL (140-400) 130 x10^3/uL (140-400) Neutrophils (%) (Auto) 70 % (31-73) 72 % (31-73) Lymphocytes (%) (Auto) 13 % (24-48) 13 % (24-48) Monocytes (%) (Auto) 12 % (0-9) 11 % (0-9) Eosinophils (%) (Auto) 3 % (0-3) 4 % (0-3) Basophils (%) (Auto) 1 % (0-3) 1 % (0-3) Neutrophils # (Auto) 3.5 x10^3/uL (1.8-7.7) 3.4 x10^3/uL (1.8-7.7) Lymphocytes # (Auto) 0.6 x10^3/uL (1.0-4.8) 0.6 x10^3/uL (1.0-4.8) Monocytes # (Auto) 0.6 x10^3/uL (0.0-1.1) 0.5 x10^3/uL (0.0-1.1) Eosinophils # (Auto) 0.2 x10^3/uL (0.0-0.7) 0.2 x10^3/uL (0.0-0.7) Basophils # (Auto) 0.1 x10^3/uL (0.0-0.2) 0.0 x10^3/uL (0.0-0.2) Sodium Level 143 mmol/L (136-145) 144 mmol/L (136-145) Potassium Level 3.6 mmol/L (3.5-5.1) 3.3 mmol/L (3.5-5.1) Chloride Level 106 mmol/L (98-107) 105 mmol/L (98-107) Carbon Dioxide Level 37 mmol/L (21-32) 37 mmol/L (21-32) Anion Gap 0 (6-14) 2 (6-14) Blood Urea Nitrogen 24 mg/dL (8-26) 17 mg/dL (8-26) Creatinine 1.6 mg/dL (0.7-1.3) 1.5 mg/dL (0.7-1.3) Estimated GFR (Cockcroft-Gault) 53.1 57.2 BUN/Creatinine Ratio 15 (6-20) 11 (6-20) Glucose Level 86 mg/dL (70-99) 84 mg/dL (70-99) Calcium Level 9.6 mg/dL (8.5-10.1) 9.2 mg/dL (8.5-10.1) Total Bilirubin 0.5 mg/dL (0.2-1.0) 0.6 mg/dL (0.2-1.0) Aspartate Amino Transf (AST/SGOT) 14 U/L (15-37) 12 U/L (15-37) Alanine Aminotransferase (ALT/SGPT) 16 U/L (16-63) 14 U/L (16-63) Alkaline Phosphatase 55 U/L (46-116) 49 U/L (46-116) Total Protein 6.2 g/dL (6.4-8.2) 6.3 g/dL (6.4-8.2) Albumin 2.9 g/dL (3.4-5.0) 2.9 g/dL (3.4-5.0) Albumin/Globulin Ratio 0.9 (1.0-1.7) 0.9 (1.0-1.7) Laboratory Tests Test 03/12/20 06:50 White Blood Count 4.8 x10^3/uL (4.0-11.0) Red Blood Count 3.73 x10^6/uL (4.30-5.70) Hemoglobin 10.6 g/dL (13.0-17.5) Hematocrit 32.8 % (39.0-53.0) Mean Corpuscular Volume 88 fL (79-100) Mean Corpuscular Hemoglobin 28 pg (25-35) Mean Corpuscular Hemoglobin Concent 32 g/dL (31-37) Red Cell Distribution Width 16.6 % (11.5-14.5) Platelet Count 130 x10^3/uL (140-400) Neutrophils (%) (Auto) 72 % (31-73) Lymphocytes (%) (Auto) 13 % (24-48) Monocytes (%) (Auto) 11 % (0-9) Eosinophils (%) (Auto) 4 % (0-3) Basophils (%) (Auto) 1 % (0-3) Neutrophils # (Auto) 3.4 x10^3/uL (1.8-7.7) Lymphocytes # (Auto) 0.6 x10^3/uL (1.0-4.8) Monocytes # (Auto) 0.5 x10^3/uL (0.0-1.1) Eosinophils # (Auto) 0.2 x10^3/uL (0.0-0.7) Basophils # (Auto) 0.0 x10^3/uL (0.0-0.2) Sodium Level 144 mmol/L (136-145) Potassium Level 3.3 mmol/L (3.5-5.1) Chloride Level 105 mmol/L (98-107) Carbon Dioxide Level 37 mmol/L (21-32) Anion Gap 2 (6-14) Blood Urea Nitrogen 17 mg/dL (8-26) Creatinine 1.5 mg/dL (0.7-1.3) Estimated GFR (Cockcroft-Gault) 57.2 BUN/Creatinine Ratio 11 (6-20) Glucose Level 84 mg/dL (70-99) Calcium Level 9.2 mg/dL (8.5-10.1) Total Bilirubin 0.6 mg/dL (0.2-1.0) Aspartate Amino Transf (AST/SGOT) 12 U/L (15-37) Alanine Aminotransferase (ALT/SGPT) 14 U/L (16-63) Alkaline Phosphatase 49 U/L (46-116) Total Protein 6.3 g/dL (6.4-8.2) Albumin 2.9 g/dL (3.4-5.0) Albumin/Globulin Ratio 0.9 (1.0-1.7) Brief Hospital Course History of Present Illness 03/06/20 HPI: "SEEN IN ER WITH WORSENING SOA, 34 year old AA male who presents to the emergency room via EMS with complaints of increased shortness of breath, and an increased cough with pink sputum since yesterday. Patient denies any known Covid-19 exposure. Patient reports that he was admitted a few weeks ago for a COPD exacerbation and he was discharged home on February 26. He denies any chest pain, palpitations, nausea, vomiting, diarrhea, abdominal pain, sore throat, or headache. reports that his breathing has become more labored. TROPONIN I MILDLY ELEVATED." 03/07/2020 Patient seen and examined Discussed with RN Chart reviewed 03/08/20 Pt seen and examined in room. LEFTY RN regarding fluid restriction and low sodium diet. Chart reviewed. Pt claims breathing is improving and denies any chest pain. 03/08/20 No acute events overnight. Currently on milirnone and lasix gtt. Goal weight of 85 kg. 03/10/20 Pt seen and examined in room. Pt currently on nasal canula with lasix and milrinone drip. Pt claims his breathing has improved since yesterday and denies any chest pain. Pt claims he is adhering to the diet and fluid restrictions. DW nurse. LEFTY cardiology. 03/11/2020 Patient seen and examined in bedside. Patient currently saturating 96% on 8 L nasal cannula. -675 cc fluid balance in the past 24 hours. No complaints voiced at this time. Tolerating breakfast. Patient's chart, labs, images were reviewed and discussed with RN 03/12/2020 No acute events reported overnight, he continues to do well and tolerate hismedication swell, awaiting for recommendations from cardiology prior to deaprture. He will transition to a rehab facility since he is a very high reisk for readmission given his frail condition medically. Hoepfully he stays away from the substances as well by being in an institution which will help oversee his medical care. Greater than 35 minutes spent in the discharge process of the patien in counseling coordination of care an darrangements for a safe transfer. Discharge Information Condition at Discharge: Improved Follow Up: Weeks Disposition/Orders: D/C to Home Scheduled Amiodarone Hcl (Amiodarone Hcl) 200 Mg Tablet, 200 MG PO DAILY for A-fib, #30 Ref 3 Prescribed by: PENNIE GONZALEZ MD on 03/04/20 1035 Last Action: Continued on 03/06/201913 by RANJITH RICHARDSON MD Apixaban (Eliquis) 5 Mg Tablet, 5 MG PO BID for blood thinner, (Reported) Entered as Reported by: SULAIMAN MARTIN on 08/02/19 1454 Last Taken: Unknown Dose on 03/02/20 Last Action: Continued on 03/06/201825 by ROYER ADDISON Bumetanide (Bumetanide) 1 Mg Tablet, 1 MG PO BID for Heart Failure, #60 Ref 3 Prescribed by: PENNIE GONZALEZ MD on 03/04/20 1035 Last Action: Continued on 03/06/201913 by RANJITH RICHARDSON MD Ipratropium/Albuterol Sulfate (Duoneb 0.5-3(2.5) Mg/3 Ml) 3 Ml Ampul.neb, 3 ML NEB Q4HRS for COPD for 30 Days, #180 Prescribed by: HIREN ZHOU MD on 05/09/19 1420 Last Taken: Unknown Dose on 03/06/20 Last Action: Continued on 03/06/201913 by RANJITH RICHARDSON MD Lisinopril (Lisinopril) 40 Mg Tablet, 20 MG PO DAILY for HTN for 30 Days, #15 Prescribed by: HIREN ZHOU MD on 05/10/19 1155 Last Action: Continued on 03/06/201913 by RANJITH RICHARDSON MD Metoprolol Succinate (Toprol Xl) 25 Mg Tab.er.24h, 1 TAB PO DAILY for blood pressure for 30 Days, #30 Ref 0 (Reported) Entered as Reported by: SULAIMAN MARTIN on 08/02/19 1458 Last Action: Continued on 03/06/201913 by RANJITH RICHARDSON MD Nicotine (NICODERM CQ 21mg) 1 Each Patch.td24, 1 PATCH TP DAILY for smoking cessation, #28 Ref 1 (Reported) Entered as Reported by: PACO ANDRES on 01/28/20 1600 Last Action: Continued on 03/06/201913 by RANJITH RICHARDSON MD Potassium Chloride (Potassium Chloride ) 20 Meq Tablet.er, 20 MEQ PO DAILY for SUPPLEMENT for 30 Days, #30 Ref 2 Prescribed by: CARMEN OROZCO MD on 02/02/20 1008 Last Action: Continued on 03/06/201913 by RANJITH RICHARDSON MD Simvastatin (Zocor) 20 Mg Tablet, 20 MG PO HS for FOR CHOLESTEROL, #30 Ref 0 (Reported) NEXT DOSE DUE TONIGHT AT BEDTIME Entered as Reported by: Eliceo Herring on 10/27/14 1329 Last Action: Continued on 03/06/201913 by RANJITH RICHARDSON MD Scheduled PRN Albuterol Sulfate (Albuterol Sulfate Neb Soln) 0.63 Mg/3 Ml Vial.neb, 0.63 MG NEB PRN Q4HRS PRN for SHORTNESS OF BREATH for 30 Days, #100 Ref 2 NEEDED Prescribed by: LOU HERNANDEZ on 10/13/16931 Last Action: Converted on 03/06/201913 by RANJITH RICHARDSON MD Justicifation of Admission Dx: Justifications for Admission: Justification of Admission Dx: Yes Respiratory Failure: Severe Resp Distress HIREN ZHOU MD Mar 12, 2020 11:53
--- NOTE | 2020-03-12 12:00 | PDOC ---
PULMONARY PROGRESS NOTES DATE: 03/12/20 TIME: 11:59 Subjective off bipap 40% fio2 8 L nasal cannula during day sob better has occ cough on Lasix drip and milrinone drip Afebrile overnight Vitals Vital Signs Date Time Temp Pulse Resp B/P (MAP) Pulse Ox O2 Delivery O2 Flow Rate FiO2 03/12/20 11:52 98 Nasal Cannula 6.0 03/12/20 11:00 97.9 70 20 132/85 (101) 97.9 ROS: No Nausea, No Chest Pain, No Abdominal Pain, No Increase Cough General: Alert, Oriented X4, No acute distress HEENT: Other (nc at ) Lungs: Crackles Cardiovascular: S1, S2 Abdomen: Soft, Non-tender, Other Extremities: Other (BLE +2) Skin: Warm Labs Laboratory Tests Test 03/11/20 04:30 03/12/20 06:50 White Blood Count 5.0 x10^3/uL (4.0-11.0) 4.8 x10^3/uL (4.0-11.0) Red Blood Count 3.73 x10^6/uL (4.30-5.70) 3.73 x10^6/uL (4.30-5.70) Hemoglobin 10.5 g/dL (13.0-17.5) 10.6 g/dL (13.0-17.5) Hematocrit 32.5 % (39.0-53.0) 32.8 % (39.0-53.0) Mean Corpuscular Volume 87 fL (79-100) 88 fL (79-100) Mean Corpuscular Hemoglobin 28 pg (25-35) 28 pg (25-35) Mean Corpuscular Hemoglobin Concent 32 g/dL (31-37) 32 g/dL (31-37) Red Cell Distribution Width 16.5 % (11.5-14.5) 16.6 % (11.5-14.5) Platelet Count 131 x10^3/uL (140-400) 130 x10^3/uL (140-400) Neutrophils (%) (Auto) 70 % (31-73) 72 % (31-73) Lymphocytes (%) (Auto) 13 % (24-48) 13 % (24-48) Monocytes (%) (Auto) 12 % (0-9) 11 % (0-9) Eosinophils (%) (Auto) 3 % (0-3) 4 % (0-3) Basophils (%) (Auto) 1 % (0-3) 1 % (0-3) Neutrophils # (Auto) 3.5 x10^3/uL (1.8-7.7) 3.4 x10^3/uL (1.8-7.7) Lymphocytes # (Auto) 0.6 x10^3/uL (1.0-4.8) 0.6 x10^3/uL (1.0-4.8) Monocytes # (Auto) 0.6 x10^3/uL (0.0-1.1) 0.5 x10^3/uL (0.0-1.1) Eosinophils # (Auto) 0.2 x10^3/uL (0.0-0.7) 0.2 x10^3/uL (0.0-0.7) Basophils # (Auto) 0.1 x10^3/uL (0.0-0.2) 0.0 x10^3/uL (0.0-0.2) Sodium Level 143 mmol/L (136-145) 144 mmol/L (136-145) Potassium Level 3.6 mmol/L (3.5-5.1) 3.3 mmol/L (3.5-5.1) Chloride Level 106 mmol/L (98-107) 105 mmol/L (98-107) Carbon Dioxide Level 37 mmol/L (21-32) 37 mmol/L (21-32) Anion Gap 0 (6-14) 2 (6-14) Blood Urea Nitrogen 24 mg/dL (8-26) 17 mg/dL (8-26) Creatinine 1.6 mg/dL (0.7-1.3) 1.5 mg/dL (0.7-1.3) Estimated GFR (Cockcroft-Gault) 53.1 57.2 BUN/Creatinine Ratio 15 (6-20) 11 (6-20) Glucose Level 86 mg/dL (70-99) 84 mg/dL (70-99) Calcium Level 9.6 mg/dL (8.5-10.1) 9.2 mg/dL (8.5-10.1) Total Bilirubin 0.5 mg/dL (0.2-1.0) 0.6 mg/dL (0.2-1.0) Aspartate Amino Transf (AST/SGOT) 14 U/L (15-37) 12 U/L (15-37) Alanine Aminotransferase (ALT/SGPT) 16 U/L (16-63) 14 U/L (16-63) Alkaline Phosphatase 55 U/L (46-116) 49 U/L (46-116) Total Protein 6.2 g/dL (6.4-8.2) 6.3 g/dL (6.4-8.2) Albumin 2.9 g/dL (3.4-5.0) 2.9 g/dL (3.4-5.0) Albumin/Globulin Ratio 0.9 (1.0-1.7) 0.9 (1.0-1.7) Laboratory Tests Test 03/12/20 06:50 White Blood Count 4.8 x10^3/uL (4.0-11.0) Red Blood Count 3.73 x10^6/uL (4.30-5.70) Hemoglobin 10.6 g/dL (13.0-17.5) Hematocrit 32.8 % (39.0-53.0) Mean Corpuscular Volume 88 fL (79-100) Mean Corpuscular Hemoglobin 28 pg (25-35) Mean Corpuscular Hemoglobin Concent 32 g/dL (31-37) Red Cell Distribution Width 16.6 % (11.5-14.5) Platelet Count 130 x10^3/uL (140-400) Neutrophils (%) (Auto) 72 % (31-73) Lymphocytes (%) (Auto) 13 % (24-48) Monocytes (%) (Auto) 11 % (0-9) Eosinophils (%) (Auto) 4 % (0-3) Basophils (%) (Auto) 1 % (0-3) Neutrophils # (Auto) 3.4 x10^3/uL (1.8-7.7) Lymphocytes # (Auto) 0.6 x10^3/uL (1.0-4.8) Monocytes # (Auto) 0.5 x10^3/uL (0.0-1.1) Eosinophils # (Auto) 0.2 x10^3/uL (0.0-0.7) Basophils # (Auto) 0.0 x10^3/uL (0.0-0.2) Sodium Level 144 mmol/L (136-145) Potassium Level 3.3 mmol/L (3.5-5.1) Chloride Level 105 mmol/L (98-107) Carbon Dioxide Level 37 mmol/L (21-32) Anion Gap 2 (6-14) Blood Urea Nitrogen 17 mg/dL (8-26) Creatinine 1.5 mg/dL (0.7-1.3) Estimated GFR (Cockcroft-Gault) 57.2 BUN/Creatinine Ratio 11 (6-20) Glucose Level 84 mg/dL (70-99) Calcium Level 9.2 mg/dL (8.5-10.1) Total Bilirubin 0.6 mg/dL (0.2-1.0) Aspartate Amino Transf (AST/SGOT) 12 U/L (15-37) Alanine Aminotransferase (ALT/SGPT) 14 U/L (16-63) Alkaline Phosphatase 49 U/L (46-116) Total Protein 6.3 g/dL (6.4-8.2) Albumin 2.9 g/dL (3.4-5.0) Albumin/Globulin Ratio 0.9 (1.0-1.7) Medications Active Scripts Medications Dose Route/Sig Max Daily Dose Days Date Category Dose Instructions Bumetanide 1 Mg Tablet 1 Mg PO BID 03/04/20 Rx Amiodarone Hcl 200 Mg Tablet 200 Mg PO DAILY 03/04/20 Rx Potassium Chloride (Potassium Chloride) 20 Meq Tablet.er 20 Meq PO DAILY 30 02/02/20 Rx NICODERM CQ 21mg (Nicotine) 1 Each Patch.td24 1 Patch TP DAILY 01/28/20 Reported Eliquis (Apixaban) 5 Mg Tablet 5 Mg PO BID 08/02/19 Reported Toprol Xl (Metoprolol Succinate) 25 Mg Tab.er.24h 1 Tab PO DAILY 30 08/02/19 Reported Lisinopril 40 Mg Tablet 20 Mg PO DAILY 30 05/10/19 Rx Duoneb 0.5-3(2.5) Mg/3 Ml (Albuterol/Ipratropium) 3 Ml Ampul.neb 3 Ml NEB Q4HRS 30 05/09/19 Rx Albuterol Sulfate Neb Soln (Albuterol Sulfate) 0.63 Mg/3 Ml Vial.neb 0.63 Mg NEB PRN Q4HRS PRN 30 10/13/16 Rx NEEDED Zocor (Simvastatin) 20 Mg Tablet 20 Mg PO HS 10/27/14 Reported NEXT DOSE DUE TONIGHT AT BEDTIME Comments CXR Impression: 1. Findings again suggest volume overload with cardiomegaly. Trace effusions are reidentified. Impression . IMPRESSION: 1. Acute on chronic respiratory failure, multifactorial. 2. Acute on chronic systolic and diastolic heart failure. 3. Sick sinus syndrome, status post biventricular pacemaker. 4. Nonischemic cardiomyopathy. 5. Chronic troponin elevation. 6. Paroxysmal atrial fibrillation. 7. Hypertension. 8. Severe chronic obstructive pulmonary disease. 9. Tobacco dependence, in remission. 10. Non-ST segment elevation myocardial infarction. Plan . PLAN: Continue supplemental oxygen, titrate fio2 to keep sat 90% Continue BiPAP/trilogy at night Follow chest x-ray as needed Bronchodilators as needed Follow cardiology recommendations, diuresis per cardiology, currently on milrinone drip and Lasix drip Hypertension Per PCP and cardiology-- LVEF 20-25%. Monitor renal function -- stable Social work for DC planning, plan to discharge to rehab ,medically stable Physical therapy/Occupational Therapy DVT/GI prophylaxis: Eliquis and Protonix Discussed with RN PT. is FULL CODE SHARON ROJAS MD Mar 12, 2020 12:00
--- NOTE | 2020-03-12 12:04 | NUR ---
SS following up with discharge planning. SS reviewed pt chart and discussed with pt RN. Pt is currently requiring oxygen. Pt has home oxygen. COVID19 negative. Pt accepted at [facility] and has insurance authorization. Discharge orders received for [facility], ; fax [phone]. SS phoned and faxed discharge orders to [facility]. Pt will discharge today and go to [facility] at 1400. [facility] to provide transportation. Pt and pt's RN notified.
--- NOTE | 2020-03-12 13:21 | PDOC ---
BRITTON MORAN CARPENTER INSPECTOR 03/12/20 1321: CARDIO Progress Notes Date and Time Date of Service 03/12/20 Time of Evaluation 1245 Subjective Subjective: No Chest Pain, No Palpitations, Other (breathing improved. Mild LE edema persists ) Vitals Vitals Vital Signs Date Time Temp Pulse Resp B/P (MAP) Pulse Ox O2 Delivery O2 Flow Rate FiO2 03/12/20 11:52 98 Nasal Cannula 6.0 03/12/20 11:00 97.9 70 20 132/85 (101) 97.9 Weight Weight [ ] Input and Output Intake and Output Intake and Output 03/12/20 07:00 Intake Total 1396 ml Output Total 3425 ml Balance -2029 ml Intake Oral 1106 ml IV Total 290 ml Output Urine Total 3425 ml Laboratory Labs Laboratory Tests Test 03/12/20 06:50 White Blood Count 4.8 x10^3/uL (4.0-11.0) Red Blood Count 3.73 x10^6/uL (4.30-5.70) Hemoglobin 10.6 g/dL (13.0-17.5) Hematocrit 32.8 % (39.0-53.0) Mean Corpuscular Volume 88 fL (79-100) Mean Corpuscular Hemoglobin 28 pg (25-35) Mean Corpuscular Hemoglobin Concent 32 g/dL (31-37) Red Cell Distribution Width 16.6 % (11.5-14.5) Platelet Count 130 x10^3/uL (140-400) Neutrophils (%) (Auto) 72 % (31-73) Lymphocytes (%) (Auto) 13 % (24-48) Monocytes (%) (Auto) 11 % (0-9) Eosinophils (%) (Auto) 4 % (0-3) Basophils (%) (Auto) 1 % (0-3) Neutrophils # (Auto) 3.4 x10^3/uL (1.8-7.7) Lymphocytes # (Auto) 0.6 x10^3/uL (1.0-4.8) Monocytes # (Auto) 0.5 x10^3/uL (0.0-1.1) Eosinophils # (Auto) 0.2 x10^3/uL (0.0-0.7) Basophils # (Auto) 0.0 x10^3/uL (0.0-0.2) Sodium Level 144 mmol/L (136-145) Potassium Level 3.3 mmol/L (3.5-5.1) Chloride Level 105 mmol/L (98-107) Carbon Dioxide Level 37 mmol/L (21-32) Anion Gap 2 (6-14) Blood Urea Nitrogen 17 mg/dL (8-26) Creatinine 1.5 mg/dL (0.7-1.3) Estimated GFR (Cockcroft-Gault) 57.2 BUN/Creatinine Ratio 11 (6-20) Glucose Level 84 mg/dL (70-99) Calcium Level 9.2 mg/dL (8.5-10.1) Total Bilirubin 0.6 mg/dL (0.2-1.0) Aspartate Amino Transf (AST/SGOT) 12 U/L (15-37) Alanine Aminotransferase (ALT/SGPT) 14 U/L (16-63) Alkaline Phosphatase 49 U/L (46-116) Total Protein 6.3 g/dL (6.4-8.2) Albumin 2.9 g/dL (3.4-5.0) Albumin/Globulin Ratio 0.9 (1.0-1.7) Physical Exam HEENT: Neck Supple W Full Motion Chest: Symmetric LUNGS: Other (diminished bases ) Heart: RRR (Vpaced with first degree AV block) Abdomen: Soft N/T Extremities: Other (1-2+ pitting edema of bilateral LE ) Neurology: alert, oriented, follow commands Assessment Assessment 1. Acute on chronic respiratory failure, multifactorial. 2. Acute on chronic combined systolic/diastolic CHF: Improved. Noncompliance with fluid/dietary restrictions per RN 3. SSS/ NICM s/p BiV PPM/CIRCULAR GANG SAW OPERATOR-P (Biotronik); LVEF 20-25%. Recent device check revealed 31% AFIB burden with no significant RVR episodes since amiodarone. norm al function, BiV pacing 100% 4. Chronic mild troponin elevation; peak 0.153 with h/o chronic troponin elevation. Type II. demand ischemia. CP free. 5. PAFIB; V paced. Continue amiodarone for rhythm maintenance and Eliquis for stroke prophylaxis. 6. HTN: controlled 7. ASHLEY on CKD3; improved 8. Hx of tobaccoism, cocaine and marijuana use. Has been sober 9. COPD 10. NSVT: No further episodes noted on telemetry. Recommendations Titrate off milrinone gtt. Stop IV Lasix Resume Oral Bumex BID Will give dose of metolazone today Replace K Reinforced importance of fluid and Na restrictions Follow up with Dr. Laureano 03/29/20 at 2:00pm Will consider for outpatient ischemic evaluation at that time. Justicifation of Admission Dx: Justifications for Admission: Justification of Admission Dx: Yes Respiratory Failure: Severe Resp Distress CLAUDE LAUREANO MD 03/12/20 1802: CARDIO Progress Notes Assessment Assessment Patient seen and examined I agree with our nurse practitioners assessment and plan as above. Acute on chronic respiratory failure, multifactorial. Improved. Continue medical treatment. Acute on chronic combined systolic/diastolic CHF: Improved. Noncompliance with fluid/dietary restrictions per RN. Tapering off milrinone. On oral Bumex. Outpatient follow-up. SSS/ NICM s/p BiV PPM/CIRCULAR GANG SAW OPERATOR-P (Biotronik); LVEF 20-25%. Recent device check revealed 31% AFIB burden with no significant RVR episodes since amiodarone. normal function, BiV pacing 100% Chronic mild troponin elevation; peak 0.153 with h/o chronic troponin elevation. Type II. demand ischemia. CP free. PAFIB; V paced. Continue amiodarone for rhythm maintenance and Eliquis for stroke prophylaxis. HTN: controlled ASHLEY on CKD3; improved Hx of tobaccoism, cocaine and marijuana use. Has been sober. NSVT: No further episodes noted on telemetry. BRITTON MORAN APRN Mar 12, 2020 13:21 CLAUDE LAUREANO MD Mar 12, 2020 18:02
[2020-03-12] MEDS ORDERED: POTASSIUM CHLORIDE 20 MEQ TABLET.ER. PO ONE (14:30)
[2020-03-12] MEDS ORDERED: metOLazone 2.5 MG TABLET PO SCH (14:30)
[2020-03-12] MEDS ORDERED: BUMETANIDE 1 MG TABLET. PO SCH ×2 (14:30→16:00)
[2020-03-12 15:00] VITALS: BP 145/87
[2020-03-12] MEDS ORDERED: metOLazone 2.5 MG TABLET PO ONE (15:00)
--- NOTE | 2020-03-12 16:10 | NUR ---
Discharge Note: NEIL EWING Discharge instructions and discharge home medications reviewed with Patient and a copy given. All questions have been answered and understanding verbalized. The following instructions and handouts were given: symptoms worsening and follow up Discontinued lines and drains: peripheral lines discontinued. Patient discharged to acute rehab facility.
== END 2020-03-12 16:06 | DRG 682 ==
LOC: ER 11:36 → ED HOLD 13:21 → 2 NORTH 17:33
PROVIDERS: ADMIT Family Medicine; ATTEND Family Medicine
PROC: 5A09357 Assistance with Respiratory Ventilation, Less than 24 Consecutive Hours, Continuous Positive Airway Pressure (ICD-10-PCS; principal; 2020-03-06)
PROC: 5A09357 Assistance with Respiratory Ventilation, Less than 24 Consecutive Hours, Continuous Positive Airway Pressure (ICD-10-PCS; 2020-03-07)
PROC: 4B02XSZ Measurement of Cardiac Pacemaker, External Approach (ICD-10-PCS; 2020-03-07)
PROC: 5A09357 Assistance with Respiratory Ventilation, Less than 24 Consecutive Hours, Continuous Positive Airway Pressure (ICD-10-PCS; 2020-03-08)
PROC: 5A09357 Assistance with Respiratory Ventilation, Less than 24 Consecutive Hours, Continuous Positive Airway Pressure (ICD-10-PCS; 2020-03-09)
PROC: 5A09357 Assistance with Respiratory Ventilation, Less than 24 Consecutive Hours, Continuous Positive Airway Pressure (ICD-10-PCS; 2020-03-10)
PROC: 5A09357 Assistance with Respiratory Ventilation, Less than 24 Consecutive Hours, Continuous Positive Airway Pressure (ICD-10-PCS; 2020-03-11)
PROC: 5A09357 Assistance with Respiratory Ventilation, Less than 24 Consecutive Hours, Continuous Positive Airway Pressure (ICD-10-PCS; 2020-03-12)
DX: N17.9 Acute kidney failure, unspecified (principal); I50.43 Acute on chronic combined systolic (congestive) and diastolic (congestive) heart failure; I21.4 Non-ST elevation (NSTEMI) myocardial infarction; J96.21 Acute and chronic respiratory failure with hypoxia; I13.0 Hypertensive heart and chronic kidney disease with heart failure and stage 1 through stage 4 chronic kidney disease, or unspecified chronic kidney disease; I47.2 Ventricular tachycardia; I42.8 Other cardiomyopathies; D64.9 Anemia, unspecified; E78.00 Pure hypercholesterolemia, unspecified; E78.5 Hyperlipidemia, unspecified; E87.6 Hypokalemia; F12.90 Cannabis use, unspecified, uncomplicated; F14.90 Cocaine use, unspecified, uncomplicated; F17.211 Nicotine dependence, cigarettes, in remission; I48.0 Paroxysmal atrial fibrillation; N18.30 Chronic kidney disease, stage 3 unspecified; Z20.828 Contact with and (suspected) exposure to other viral communicable diseases; Z82.49 Family history of ischemic heart disease and other diseases of the circulatory system; Z83.3 Family history of diabetes mellitus; Z90.49 Acquired absence of other specified parts of digestive tract; Z91.19 Patient's noncompliance with other medical treatment and regimen; Z95.0 Presence of cardiac pacemaker; R54 Age-related physical debility; J44.9 Chronic obstructive pulmonary disease, unspecified; Z71.6 Tobacco abuse counseling; Z88.8 Allergy status to other drugs, medicaments and biological substances
CPT/HCPCS: 36415; 36600; 71045; 80048; 80053; 80307; 81001; 82553; 82805; 83690; 83735; 83880; 84484; 85007; 85025; 87426; 87804; 94640; 94660; 94760; 96374; 99285; J1650; J1940; J2260; J3490; P9046; U0003; 97116-GP; 97530-GO; 97530-GP; 97535-GO; G0378

== ENCOUNTER 2020-08-24 03:56 | Observation (INO) | payer MEDICARE, MEDICAID ==
[~2020-08-24] VITALS: Ht 182.9 cm; Wt 81.8 kg
[~2020-08-24 03:56] MED LIST changes: +ACET325T21 PO; +BISA10SU55 RC; +BUME2TAB3 PO; -ISOS60TA2 PO; +ISOS60TA55 PO; +MAGN24003 PO; +METO2.5T PO
--- NOTE | 2020-08-24 04:26 | EKG ---
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
--- NOTE | 2020-08-24 04:27 | PHYS DOC ---
Past Medical History Past Medical History: A-Fib, Anemia, Asthma, CHF, COPD, High Cholesterol, Hypertension, Renal Disease Additional Past Medical Histor: SUBSTANCE ABUSE Past Surgical History: Other Additional Past Surgical Histo: PACEMAKER Smoking Status: Former Smoker Alcohol Use: Occasionally Drug Use: Cocaine, Marijuana General Adult EDM: Chief Complaint: SHORTNESS OF BREATH HPI: HPI: Patient is a 65-year-old male who presents for dysphagia. This is an acute issue, states he woke up approximately 2 hours prior with feelings of lip and tongue swelling and ever since, reports increased difficulty swallowing. Has history of severe COPD and on 6 L oxygen via nasal cannula daily, reports being on baseline oxygen but just concerned because he had increased air hunger and feeling that his tongue was swelling. Patient also admits submandibular swelling and tenderness with palpation which is new. Denies any recent febrile disease, medication changes, history of C3 esterase deficiency, anaphylaxis, angioedema etc. Reports he has been at his baseline health recently. He has full capacity at present speaking in full sentences, reports he is full CODE STATUS in the event of an emergency requiring urgent airway intervention Review of Systems: Review of Systems: Fourteen body systems of review of systems have been reviewed. See HPI for pertinent positives and negative responses, other rasmussen all other systems are negative, non-pertinent or non-contributory Heart Score: C/O Chest Pain: No HEART Score for Chest Pain: HEART Score for Chest Pain Response (Comments) Value History Slighlty/Non-Suspicious 0 ECG Nonspecific Repolarizatio 1 Age > 65 2 Risk Factors >3 Risk Factors or Hx CAD 2 Troponin < Normal Limit 0 Total 5 Risk Factors: Risk Factors: DM, Current or recent (<one month) smoker, HTN, HLP, family history of CAD, obesity. Risk Scores: Score 0 - 3: 2.5% MACE over next 6 weeks - Discharge Home Score 4 - 6: 20.3% MACE over next 6 weeks - Admit for Clinical Observation Score 7 - 10: 72.7% MACE over next 6 weeks - Early Invasive Strategies Allergies: Allergies: Allergies Coded Allergies Type Severity Reaction Last Updated Verified levofloxacin Allergy Intermediate Itching 01/28/20 Yes Physical Exam: PE: Constitutional: Well developed, well nourished, no acute distress, non-toxic appearance. HENT: Normocephalic, atraumatic, bilateral external ears normal, oropharynx dry with global poor dentition but no obvious signs of abscess or acute infection, large tongue with Mallampati score 4 with unknown baseline, sublingual area visually unremarkable, patient does have palpable bilateral anterior cervical lymphadenopathy and palpable enlargement to submandibular area which patient reports is new without crepitus, erythema, discoloration or other concerning findings. No oral exudates, nose normal. Eyes: PERRLA, EOMI, conjunctiva normal, no discharge. Neck: Normal range of motion, no tenderness, supple, no stridor. Cardiovascular: Heart rate regular, paced rhythm, pacemaker present on left upper outer chest Lungs & Thorax: No obvious respiratory distress or increased work of breathing, no accessory muscle use, patient on 6 L oxygen via nasal cannula without any observed difficulty, crackles present to bilateral lung núñez Abdomen: Bowel sounds normal, soft, no tenderness, no masses, no pulsatile masses. Nonsurgical abdomen, no peritoneal signs Skin: Warm, dry, no erythema, no rash. Back: No tenderness, no CVA tenderness. Extremities: No tenderness, no cyanosis, no clubbing, ROM intact, no edema. Neurologic: Alert and oriented X 3, grossly normal motor & sensory function, no focal deficits noted. Psychologic: Affect normal, judgement normal, mood normal. Current Patient Data: Labs: Current Medications Medications (Trade) Dose Ordered Sig/Dex Route PRN Reason Start Time Stop Time Status Last Admin Dose Admin Methylprednisolone Sodium Succinate (SOLU-Medrol 125MG VIAL) 125 mg 1X ONCE IV 08/24/20 05:00 08/24/20 05:01 DC 08/24/20 05:06 Aspirin (Aspirin Chewable) 162 mg 1X ONCE PO 08/24/20 05:00 08/24/20 05:01 DC 08/24/20 05:06 Ceftriaxone Sodium (Rocephin) 1 gm 1X ONCE IVP 08/24/20 06:00 08/24/20 06:01 DC 08/24/20 05:40 Clindamycin Phosphate 50 ml @ 100 mls/hr 1X ONCE IV 08/24/20 06:00 08/24/20 06:29 DC 08/24/20 05:41 Vital Signs: Vital Signs Date Time Temp Pulse Resp B/P (MAP) Pulse Ox O2 Delivery O2 Flow Rate FiO2 08/24/20 03:57 98.4 67 18 155/91 (112) 97 Nasal Cannula 98.4 Vital Signs Date Time Temp Pulse Resp B/P (MAP) Pulse Ox O2 Delivery O2 Flow Rate FiO2 08/24/20 03:57 98.4 67 18 155/91 (112) 97 Nasal Cannula 98.4 EKG: EKG: EKG ordered and interpreted by myself at 0409 hrs. as a ventricular paced rhythm at 68 bpm, prolonged QRS at 204, prolonged QTC at 536, right axis deviation, no acute ischemic findings, no STEMI. Prior EKG obtained on 03/06/2020 used in comparison, no significant changes noted Radiology/Procedures: Radiology/Procedures: INDICATION: Reason: SUBMANDIBULAR SWELLING / Spl. Instructions: / History: . COMPARISON: None. TECHNIQUE: Axial CT images obtained through the face. One or more of the following individualized dose reduction techniques were utilized for this examination: 1. Automated exposure control; 2. Adjustment of the mA and/or kV according to patient size; 3. Use of iterative reconstruction technique. FINDINGS: Limited evaluation for a fluid collection given lack of intravenous contrast. Paranasal sinuses are well aerated. Mild nasal septal bowing. No retro-orbital hematoma. There are some mild swelling in the prefrontal region subcutaneous soft tissues. There is also some haziness the fat adjacent to the mandible. There is some prominence of the tonsils. IMPRESSION: * Limited evaluation for fluid collection given lack of intravenous contrast. There is some edema to the soft tissues seen adjacent to the mandible. Could be sterile in nature or secondary to infectious etiology such as cellulitis. * Mild prominence of the tonsils. There is also some mild haziness to the fat adjacent to them at the left side of the neck greater than right. Would correlate with symptoms to ensure that this is not secondary to tonsillitis. Could also be from hyperplasia. Electronically signed by: Brooks Pike MD (08/24/2020 6:11 AM) [id number] Course & Med Decision Making: Course & Med Decision Making Vitals stable, HPI and physical exam concerning for potential Jason's angina Immediate intervention with aspirin, steroids and IV antibiotics started while diagnostic ER work-up ensued. Every 15 minute airway checks performed by myself without any change in airway, no immediate need to secure definitive airway Imaging came back concerning for potential abscess formation, patent airway and breathing remained patent on appropriate medication for suspect Jason's angina. I contacted hospitalist service and decision was made to admit for continued airway check and likely specialist consultation I have updated patient on proposed plan of care and he was amenable. I updated oncoming physician about proposed plan of care that included hospital admission and need for close airway check until patient was transferred to ICU unit for further care All questions and concerns oncoming physician and patient had were addressed prior to the end of my shift Critical Care Time This patient required critical care. Due to the fact that the patient required a significant amount of one on one physician - patient contact time, ordering and review of studies, arranging urgent treatment with development of a management plan, evaluation of patients response to treatment with frequent reassessments, and discussions with other providers this patient required 45 minutes of critical care time. Critical care time was indicated due to the inherent instability and/or potential for instability in this patient. The critical care time that is allocated to this patient is above and beyond any time spent on any other billable procedures performed on this patient. Dragon Disclaimer: Dragon Disclaimer: This electronic medical record was generated, in whole or in part, using a voice recognition dictation system. Departure Departure Impression: Primary Impression: Ludwigs angina Additional Impressions: Severe chronic obstructive pulmonary disease NICM (nonischemic cardiomyopathy) Chronic respiratory failure Disposition: ADMITTED INPATIENT Admitting Physician: NOE (erica) Condition: STABLE Referrals: JARED BLAKE MD (PCP) Scripts Prednisone (PREDNISONE) 20 Mg Tablet 20 MG PO DAILY for angioedema for 5 Days, #5 TAB Prov: ANT ALVAREZ MD 08/24/20 Epinephrine (EPIPEN 2-PACO) 0.3 Mg/0.3 Ml Auto.injct 1 SYR IM ONCE for anaphlaxis for 1 Day, #1 PACKET 0 Refills Prov: ANT ALVAREZ MD 08/24/20 Diphenhydramine Hcl (BENADRYL) 25 Mg Capsule 25 MG PO Q8HRS for swelling of tongue or hives for 30 Days, #90 CAP Prov: ANT ALVAREZ MD 08/24/20 NELLY FRANCO DO August 24, 2020 04:27
[2020-08-24 04:47] LABS: BASO # 0.1 x10^3/uL (0.0-0.2); BASO % 1 % (0-3); EOS # 0.1 x10^3/uL (0.0-0.7); EOS % 2 % (0-3); HEMATOCRIT 33.4 % (39.0-53.0); HEMOGLOBIN 11.1 g/dL (13.0-17.5); LYMPH % 14 % (24-48); MEAN CORPUSCULAR HEMOGLOBIN 31 pg (25-35); MEAN CORPUSCULAR HGB CONC 33 g/dL (31-37); MEAN CORPUSCULAR VOLUME 94 fL (79-100); MONO # 0.8 x10^3/uL (0.0-1.1); MONO % 11 % (0-9); NEUT # 5.3 x10^3/uL (1.8-7.7); NEUT % 73 % (31-73); PLATELET COUNT 192 x10^3/uL (140-400); RED BLOOD COUNT 3.57 x10^6/uL (4.30-5.70); RED CELL DISTRIBUTION WIDTH 21.8 % (11.5-14.5); WHITE BLOOD COUNT 7.3 x10^3/uL (4.0-11.0)
[2020-08-24 04:55] LABS: CALCIUM 9.4 mg/dL (8.5-10.1); CREATININE 2.2 mg/dL (0.7-1.3); GFR 36.6; POTASSIUM 3.6 mmol/L (3.5-5.1)
[2020-08-24 04:58] LABS: ALBUMIN 3.6 g/dL (3.4-5.0); ALBUMIN/GLOBULIN RATIO 0.9 (1.0-1.7); TOTAL BILIRUBIN 0.7 mg/dL (0.2-1.0); TOTAL PROTEIN 7.5 g/dL (6.4-8.2)
[2020-08-24] MEDS ORDERED: methylPREDNISolone SOD SUCC PF 125 MG/2 ML VIAL. IV ONE (05:00)
[2020-08-24] MEDS ORDERED: ASPIRIN CHEWABLE 81 MG TABLET. PO ONE (05:00)
[2020-08-24 05:20] LABS: ANISOCYTOSIS MOD; MICROCYTOSIS SLIGHT; PLT ESTIMATE ADEQUATE (ADEQUATE); POLYCHROMASIA SLIGHT
[2020-08-24 05:21] LABS: TEAR DROP CELLS OCC
[2020-08-24] MEDS ORDERED: cefTRIAXone IV Push 1 GM VIAL. IVP ONE (06:00)
[2020-08-24] MEDS ORDERED: CLINDAMYCIN 600MG PREMIX 50 ML IV ONE (06:00)
--- NOTE | 2020-08-24 06:13 | RAD ---
INDICATION: Reason: SUBMANDIBULAR SWELLING / Spl. Instructions: / History: . COMPARISON: None. TECHNIQUE: Axial CT images obtained through the face. One or more of the following individualized dose reduction techniques were utilized for this examinat ion: 1. Automated exposure control; 2. Adjustment of the mA and/or kV according to patient size; 3 . Use of iterative reconstruction technique. FINDINGS: Limited evaluation for a fluid collection given lack of intravenous contrast. Paranasal sinuses are w ell aerated. Mild nasal septal bowing. No retro-orbital hematoma. There are some mild swelling in the prefrontal region subcutaneous soft tissues. There is also some h aziness the fat adjacent to the mandible. There is some prominence of the tonsils. IMPRESSION: * Limited evaluation for fluid collection given lack of intravenous contrast. There is some edema to the soft tissues seen adjacent to the mandible. Could be sterile in nature or secondary to infectiou s etiology such as cellulitis. * Mild prominence of the tonsils. There is also some mild haziness to the fat adjacent to them at th e left side of the neck greater than right. Would correlate with symptoms to ensure that this is not secondary to tonsillitis. Could also be from hyperplasia. Electronically signed by: Brooks Pike MD (08/24/2020 6:11 AM) [id number]
--- NOTE | 2020-08-24 06:30 | RAD ---
INDICATION: Reason: DYSPHAGIA / Spl. Instructions: / History: COMPARISON: March 28, 2020 FINDINGS: Single view of chest obtained. Enlarged cardiomediastinal silhouette with pacemaker. Calcific atherosclerosis. Moderate interstitial and groundglass opacities bilaterally. IMPRESSION: * Moderate interstitial and groundglass opacities bilaterally which could be from edema or infiltrat e. * Enlarged cardiac silhouette. Electronically signed by: Brooks Pike MD (08/24/2020 6:28 AM) [id number]
[2020-08-24] MEDS ORDERED: SENNOSIDES 8.6 MG TABLET PO PRN (07:30)
[2020-08-24] MEDS ORDERED: ONDANSETRON PF 4 MG/2 ML VIAL. IVP PRN (07:30)
[2020-08-24] MEDS ORDERED: ACETAMINOPHEN 325 MG TABLET. PO PRN (07:30)
[2020-08-24] MEDS ORDERED: DOCUSATE SODIUM 100 MG CAPSULE. PO PRN (07:30)
[2020-08-24] MEDS ORDERED: DEXTROSE 50% 25 GM / 50ML DISP.SYRIN. IV PRN (07:30)
--- NOTE | 2020-08-24 07:31 | PDOC1 ---
History and Physical Date of Service: DOS: DATE: 08/24/20 TIME: 07:08 Chief Complaint: Chief Complain: lip swelling History of Present Illness: HPI: 65-year-old male who presents for dysphagia. This is an acute issue, states he woke up approximately 2 hours prior with feelings of lip and tongue swelling and ever since, reports increased difficulty swallowing. Has history of severe COPD and on 6 L oxygen via nasal cannula daily, reports being on baseline oxygen but just concerned because he had increased air hunger and feeling that his tongue was swelling. Patient also admits submandibular swelling and tenderness with palpation which is new. Denies any recent febrile disease, medication changes, history of C3 esterase deficiency, anaphylaxis, angioedema etc. Reports he has been at his baseline health recently. He has full capacity at present speaking in full sentences, reports he is full CODE STATUS in the event of an emergency requiring urgent airway intervention Past Medical/Surgical History: PMH/PSH: Past Medical History: A-Fib, Anemia, Asthma, CHF, COPD, High Cholesterol, Hypertension, Renal Disease, early substance abuse Past Surgical History: PACEMAKER Allergies: Allergies: Coded Allergies: levofloxacin (Verified Allergy, Intermediate, Itching, 01/28/20) Family History: Family History: Reviewed with no relevant findings Social History: Social History: Smoking Status: Former Smoker Alcohol Use: Occasionally Drug Use: Cocaine, Marijuana Current Medications: Current Medications Current Medications Methylprednisolone Sodium Succinate (SOLU-Medrol 125MG VIAL) 125 mg 1X ONCE IV Last administered on 08/24/20at 05:06; Start 08/24/20 at 05:00; Stop 08/24/20 at 05:01; Status DC Aspirin (Aspirin Chewable) 162 mg 1X ONCE PO Last administered on 08/24/20at 05:06; Start 08/24/20 at 05:00; Stop 08/24/20 at 05:01; Status DC Ceftriaxone Sodium (Rocephin) 1 gm 1X ONCE IVP Last administered on 08/24/20at 05:40; Start 08/24/20 at 06:00; Stop 08/24/20 at 06:01; Status DC Clindamycin Phosphate 50 ml @ 100 mls/hr 1X ONCE IV Last administered on 08/24/20at 05:41; Start 08/24/20 at 06:00; Stop 08/24/20 at 06:29; Status DC Active Scripts Active Bumetanide 1 Mg Tablet 1 Mg PO BID 30 Days Metolazone 2.5 Mg Tablet 5 Mg PO DAILY 30 Days Amiodarone Hcl 200 Mg Tablet 200 Mg PO DAILY Potassium Chloride (Potassium Chloride) 20 Meq Tablet.er 20 Meq PO DAILY 30 Days Lisinopril 40 Mg Tablet 20 Mg PO DAILY 30 Days Duoneb 0.5-3(2.5) Mg/3 Ml (Albuterol/Ipratropium) 3 Ml Ampul.neb 3 Ml NEB Q4HRS 30 Days Albuterol Sulfate Neb Soln (Albuterol Sulfate) 0.63 Mg/3 Ml Vial.neb 0.63 Mg NEB PRN Q4HRS PRN 30 Days NEEDED Reported Milk Of Magnesia (Magnesium Hydroxide) 2,400 Mg/10 Ml Oral.susp 2,400 Mg PO PRN DAILY PRN Dulcolax (Bisacodyl) 10 Mg Supp.rect 1 Supp RC DAILY 10 Days Acetaminophen 325 Mg Tablet 2 Tab PO PRN Q4HRS PRN 24 Days NICODERM CQ 21mg (Nicotine) 1 Each Patch.td24 1 Patch TP DAILY Eliquis (Apixaban) 5 Mg Tablet 5 Mg PO BID Toprol Xl (Metoprolol Succinate) 25 Mg Tab.er.24h 1 Tab PO DAILY 30 Days Zocor (Simvastatin) 20 Mg Tablet 20 Mg PO HS NEXT DOSE DUE TONIGHT AT BEDTIME ROS: Review of Systems Review of System REVIEW OF SYSTEMS: GENERAL: Denies weakness SKIN: No bruising, hair changes or rashes. EYES: No blurred, double or loss of vision. NOSE AND THROAT: No history of nosebleeds, hoarseness or sore throat. HEART: No history of palpitations, chest pain or shortness of breath on exertion. LUNGS: Denies cough, hemoptysis, wheezing or shortness of breath. GASTROINTESTINAL: Denies changes in appetite, nausea, vomiting, diarrhea or constipation. GENITOURINARY: No history of frequency, urgency, hesitancy or nocturia. NEUROLOGIC: Denies history of numbness, tingling, or tremor. PSYCHIATRIC: No history of panic, anxiety or depression. ENDOCRINE: No history of heat or cold intolerance, polyuria or polydipsia. EXTREMITIES: Denies joint pain, pain on walking or stiffness. Physical Exam: Vital Signs: Vital Signs Date Time Temp Pulse Resp B/P (MAP) Pulse Ox O2 Delivery O2 Flow Rate FiO2 08/24/20 06:31 67 17 144/98 (113) 98 Nasal Cannula 6.0 08/24/20 03:57 98.4 98.4 Physcial Exam: GEN: No apparent distress. Alert and oriented HEENT: Normal cephalic, atraumatic, external auditory canals are patent EYES: Extraocular muscles are intact, pupil are equally round and reactive to light and accommodation MUSCULOSKELETAL: Well developed , well nourished, good range of motion ENDOCRINE: No thyromegaly was palpated LYMPHATICS: No cervical chain or axillary nodes were noted HEMATOPOIETIC: No bruising NECK: Supple, no JVD, no thyromegaly was noted LUNGS: Clear to auscultation in all lung núñez without rhonchi or wheezing HEART: RRR, S!, S2 present. Peripheral pulses intact, no obvious murmurs noted ABDOMEN: Soft, nontender. Positive bowel sounds, no organomegaly, normal bowel sounds EXTREMITIES: Without clubbing, cyanosis, or edema. Pedal pulses intact. Negative Homans sign NEUROLOGIC: Normal speech and tone. A&O x 3, moves all extremities, no obvious focal deficits PSYCHIATRIC: Normal affect, normal mood. Stable SKIN: No ulcerations or rashes, good skin turgor, no jaundice VASCULAR: Good capillary refill, neurovascular bundle appears to be intact Labs: Labs: Laboratory Tests Test 08/24/20 04:35 White Blood Count 7.3 x10^3/uL (4.0-11.0) Red Blood Count 3.57 x10^6/uL (4.30-5.70) Hemoglobin 11.1 g/dL (13.0-17.5) Hematocrit 33.4 % (39.0-53.0) Mean Corpuscular Volume 94 fL (79-100) Mean Corpuscular Hemoglobin 31 pg (25-35) Mean Corpuscular Hemoglobin Concent 33 g/dL (31-37) Red Cell Distribution Width 21.8 % (11.5-14.5) Platelet Count 192 x10^3/uL (140-400) Neutrophils (%) (Auto) 73 % (31-73) Lymphocytes (%) (Auto) 14 % (24-48) Monocytes (%) (Auto) 11 % (0-9) Eosinophils (%) (Auto) 2 % (0-3) Basophils (%) (Auto) 1 % (0-3) Neutrophils # (Auto) 5.3 x10^3/uL (1.8-7.7) Lymphocytes # (Auto) 1.0 x10^3/uL (1.0-4.8) Monocytes # (Auto) 0.8 x10^3/uL (0.0-1.1) Eosinophils # (Auto) 0.1 x10^3/uL (0.0-0.7) Basophils # (Auto) 0.1 x10^3/uL (0.0-0.2) Platelet Estimate Adequate (ADEQUATE) Polychromasia Slight Anisocytosis Mod Microcytosis Slight Tear Drop Cells Occ Sodium Level 144 mmol/L (136-145) Potassium Level 3.6 mmol/L (3.5-5.1) Chloride Level 106 mmol/L (98-107) Carbon Dioxide Level 28 mmol/L (21-32) Anion Gap 10 (6-14) Blood Urea Nitrogen 23 mg/dL (8-26) Creatinine 2.2 mg/dL (0.7-1.3) Estimated GFR (Cockcroft-Gault) 36.6 BUN/Creatinine Ratio 10 (6-20) Glucose Level 92 mg/dL (70-99) Lactic Acid Level 0.8 mmol/L (0.4-2.0) Calcium Level 9.4 mg/dL (8.5-10.1) Total Bilirubin 0.7 mg/dL (0.2-1.0) Aspartate Amino Transf (AST/SGOT) 20 U/L (15-37) Alanine Aminotransferase (ALT/SGPT) 21 U/L (16-63) Alkaline Phosphatase 56 U/L (46-116) Troponin I Quantitative 0.082 ng/mL (0.000-0.055) Total Protein 7.5 g/dL (6.4-8.2) Albumin 3.6 g/dL (3.4-5.0) Albumin/Globulin Ratio 0.9 (1.0-1.7) Laboratory Tests Test 08/24/20 04:35 White Blood Count 7.3 x10^3/uL (4.0-11.0) Red Blood Count 3.57 x10^6/uL (4.30-5.70) Hemoglobin 11.1 g/dL (13.0-17.5) Hematocrit 33.4 % (39.0-53.0) Mean Corpuscular Volume 94 fL (79-100) Mean Corpuscular Hemoglobin 31 pg (25-35) Mean Corpuscular Hemoglobin Concent 33 g/dL (31-37) Red Cell Distribution Width 21.8 % (11.5-14.5) Platelet Count 192 x10^3/uL (140-400) Neutrophils (%) (Auto) 73 % (31-73) Lymphocytes (%) (Auto) 14 % (24-48) Monocytes (%) (Auto) 11 % (0-9) Eosinophils (%) (Auto) 2 % (0-3) Basophils (%) (Auto) 1 % (0-3) Neutrophils # (Auto) 5.3 x10^3/uL (1.8-7.7) Lymphocytes # (Auto) 1.0 x10^3/uL (1.0-4.8) Monocytes # (Auto) 0.8 x10^3/uL (0.0-1.1) Eosinophils # (Auto) 0.1 x10^3/uL (0.0-0.7) Basophils # (Auto) 0.1 x10^3/uL (0.0-0.2) Platelet Estimate Adequate (ADEQUATE) Polychromasia Slight Anisocytosis Mod Microcytosis Slight Tear Drop Cells Occ Sodium Level 144 mmol/L (136-145) Potassium Level 3.6 mmol/L (3.5-5.1) Chloride Level 106 mmol/L (98-107) Carbon Dioxide Level 28 mmol/L (21-32) Anion Gap 10 (6-14) Blood Urea Nitrogen 23 mg/dL (8-26) Creatinine 2.2 mg/dL (0.7-1.3) Estimated GFR (Cockcroft-Gault) 36.6 BUN/Creatinine Ratio 10 (6-20) Glucose Level 92 mg/dL (70-99) Lactic Acid Level 0.8 mmol/L (0.4-2.0) Calcium Level 9.4 mg/dL (8.5-10.1) Total Bilirubin 0.7 mg/dL (0.2-1.0) Aspartate Amino Transf (AST/SGOT) 20 U/L (15-37) Alanine Aminotransferase (ALT/SGPT) 21 U/L (16-63) Alkaline Phosphatase 56 U/L (46-116) Troponin I Quantitative 0.082 ng/mL (0.000-0.055) Total Protein 7.5 g/dL (6.4-8.2) Albumin 3.6 g/dL (3.4-5.0) Albumin/Globulin Ratio 0.9 (1.0-1.7) Images: Images PROCEDURE: CT MAXILLOFACIAL WO CONTRAST IMPRESSION: * Limited evaluation for fluid collection given lack of intravenous contrast. There is some edema to the soft tissues seen adjacent to the mandible. Could be sterile in nature or secondary to infectious etiology such as cellulitis. * Mild prominence of the tonsils. There is also some mild haziness to the fat adjacent to them at the left side of the neck greater than right. Would correlate with symptoms to ensure that this is not secondary to tonsillitis. Could also be from hyperplasia. PROCEDURE: CHEST AP ONLY IMPRESSION: * Moderate interstitial and groundglass opacities bilaterally which could be from edema or infiltrate. * Enlarged cardiac silhouette. 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 History of paroxysmal atrial fibrillation. History of hypertension. History of COPD History of polysubstance abuse Justifications for Admission Other Justification CHF vs COPD exacerbation hypoxic resp fail ANT ALVAREZ MD August 24, 2020 07:31
[2020-08-24] MEDS ORDERED: ENOXAPARIN 30 MG/0.3 ML SYRINGE. SQ SCH (08:00)
[2020-08-24] MEDS ORDERED: methylPREDNISolone SOD SUCC PF 40 MG/ML VIAL. IV SCH (08:00)
[2020-08-24 08:15] VITALS: BP 149/95
[2020-08-24] MEDS ORDERED: DIPH25CA58 PO (09:35)
[2020-08-24] MEDS ORDERED: PRED20TA PO (09:37)
[2020-08-24] MEDS ORDERED: EPIPEN 2-P0.3 MG/0.3 IM (09:37)
--- NOTE | 2020-08-24 09:39 | DISCH ---
DISCHARGE INSTRUCTIONS Condition on Discharge Condition on Discharge: Stable (Please review your medications and make sure you avoid taking lisinopril or losartan or Entresto) Activity After Discharge Activity Instructions for Disc: Activity as tolerated Lifting Instructions after Dis: No pulling or pushing Exercise Instruction after Dis: Progress as tolerated Driving Instructions after Dis: Do not drive Weight Bearing Status after Di: As tolerated Diet after Discharge Diet after Discharge: Regular Diet Texture: Regular Liquid Texture: Thin Liquid Swallowing Supervision: None needed Wound Incision Care Wound/Incision Care: No wound care needed Checks after Discharge Checks after discharge: Check blood press - daily Contacting the DRCleve after DC Call your doctor for: Concerns you may have Follow-Up Follow up with: PCP ADDISON and review all your medications Follow Up With: Cardiology as needed Treatment/Equipment after DC Adaptive Equipment Issued: None Discharge Respiratory Equipmen: Oxygen ANT ALVAREZ MD August 24, 2020 09:39
[2020-08-24 10:00] VITALS: BP 139/87
[2020-08-24 10:00] LABS: CALCIUM 9.1 mg/dL (8.5-10.1); CREATININE 2.1 mg/dL (0.7-1.3); GFR 38.7; MAGNESIUM 2.1 mg/dL (1.8-2.4); POTASSIUM 4.3 mmol/L (3.5-5.1)
[2020-08-24 12:00] VITALS: BP 135/86
--- NOTE | 2020-08-24 12:25 | NUR ---
SS following for discharge planning. SS reviewed pt chart and discussed with pt RN. Pt is from home and is currently requiring oxygen at six liters nasal canula. Pt has home oxygen. Pt has Trilogy machine through [employer]. Discharge order on the chart for home with self care. Pt requesting transportation for home. Pt will discharge today at 1330 via [facility] transport, [id number]. Pt's RN notified.
[2020-08-24 13:00] VITALS: BP 133/86
--- NOTE | 2020-08-24 13:00 | NUR ---
patient eating and drinking without problem, tolerated lunch no chocking or any other issues, swelling tongue and throat gone, patient states feels back to normal. able to speak clear, plan for discharge at 1330
--- NOTE | 2020-08-24 13:38 | PDOC3 ---
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 History of paroxysmal atrial fibrillation. History of hypertension. History of COPD History of polysubstance abuse Hospital Course: Hospital Course: 65-year-old male who presents for dysphagia. This is an acute issue, states he woke up approximately 2 hours prior with feelings of lip and tongue swelling and ever since, reports increased difficulty swallowing. Has history of severe COPD and on 6 L oxygen via nasal cannula daily, reports being on baseline oxygen but just concerned because he had increased air hunger and feeling that his tongue was swelling. Patient also admits submandibular swelling and tenderness with palpation which is new. Denies any recent febrile disease, medication changes, history of C3 esterase deficiency, anaphylaxis, angioedema etc. Reports he has been at his baseline health recently. He has full capacity at present speaking in full sentences, reports he is full CODE STATUS in the event of an emergency requiring urgent airway intervention Upon further investigation, patient states that he there was no recent medication changes. Patient has low health literacy and does not know what kind of medications he takes and for what reason. Patient was treated with IV steroids and his swelling significantly improved by the time of my examination. I will be discharging him with 5 days of prednisone taper, epinephrine pen, and Benadryl as needed. Patient was instructed to avoid any JOB or ARB. Patient also instructed to review his medications with his PCP. Disposition: Disposition/Orders: D/C to Home Activity: Activity: Resume previous activity Diet: Diet: Cardiac Medications: Home Meds Active Scripts Prednisone (PREDNISONE) 20 Mg Tablet, 20 MG PO DAILY for angioedema for 5 Days, #5 TAB Prov:ANT ALVAREZ MD 08/24/20 Epinephrine (EPIPEN 2-[place]) 0.3 Mg/0.3 Ml Auto.injct, 1 SYR IM ONCE for anaphlaxis for 1 Day, #1 PACKET 0 Refills Prov:ANT ALVAREZ MD 08/24/20 Diphenhydramine Hcl (BENADRYL) 25 Mg Capsule, 25 MG PO Q8HRS for swelling of tongue or hives for 30 Days, #90 CAP Prov:ANT ALVAREZ MD 08/24/20 Bumetanide (BUMETANIDE) 1 Mg Tablet, 1 MG PO BID for Heart Failure for 30 Days, #60 TAB 3 Refills Prov:ANT ALVAREZ MD 04/07/20 Metolazone (METOLAZONE) 2.5 Mg Tablet, 5 MG PO DAILY for heart failure for 30 Days, #60 TAB Prov:ATN ALVAREZ MD 04/07/20 Amiodarone Hcl (AMIODARONE HCL) 200 Mg Tablet, 200 MG PO DAILY for A-fib, #30 TAB 3 Refills Prov:PENNIE GONZALEZ MD 03/04/20 Potassium Chloride (POTASSIUM CHLORIDE ) 20 Meq Tablet.er, 20 MEQ PO DAILY for SUPPLEMENT for 30 Days, #30 TAB.SR 2 Refills Prov:CARMEN OROZCO MD 02/02/20 Ipratropium/Albuterol Sulfate (DUONEB 0.5-3(2.5) MG/3 ML) 3 Ml Ampul.neb, 3 ML NEB Q4HRS for COPD for 30 Days, #180 EACH Prov:HIREN ZHOU MD 05/09/19 Albuterol Sulfate (ALBUTEROL SULFATE NEB SOLN) 0.63 Mg/3 Ml Vial.neb, 0.63 MG NEB PRN Q4HRS PRN for SHORTNESS OF BREATH for 30 Days, #100 EACH 2 Refills NEEDED Prov:LOU HERNANDEZ MD 10/13/16 Reported Medications Magnesium Hydroxide (MILK OF MAGNESIA) 2,400 Mg/10 Ml Oral.susp, 2400 MG PO PRN DAILY PRN for CONSTIPATION, MISC 03/28/20 Bisacodyl (DULCOLAX) 10 Mg Supp.rect, 1 SUPP RC DAILY for constipation for 10 Days, #10 SUPP 0 Refills 03/28/20 Acetaminophen (ACETAMINOPHEN) 325 Mg Tablet, 2 TAB PO PRN Q4HRS PRN for pain or fever for 24 Days, #100 TAB 0 Refills 03/28/20 Nicotine (NICODERM CQ 21mg) 1 Each Patch.td24, 1 PATCH TP DAILY for smoking cess ation, #28 PATCH 1 Refill 01/28/20 Apixaban (ELIQUIS) 5 Mg Tablet, 5 MG PO BID for blood thinner, TAB 08/02/19 Metoprolol Succinate (TOPROL XL) 25 Mg Tab.er.24h, 1 TAB PO DAILY for blood pressure for 30 Days, #30 TAB 0 Refills 08/02/19 Discontinued Reported Medications Simvastatin (ZOCOR) 20 Mg Tablet, 20 MG PO HS for FOR CHOLESTEROL, #30 TAB 0 Refills NEXT DOSE DUE TONIGHT AT BEDTIME 10/27/14 Discontinued Scripts Lisinopril (LISINOPRIL) 40 Mg Tablet, 20 MG PO DAILY for HTN for 30 Days, #15 TAB Prov:HIREN ZHOU MD 05/10/19 Scheduled Amiodarone Hcl (Amiodarone Hcl), 200 MG PO DAILY Apixaban (Eliquis), 5 MG PO BID, (Reported) Bisacodyl (Dulcolax), 1 SUPP RC DAILY, (Reported) Bumetanide (Bumetanide), 1 MG PO BID Diphenhydramine Hcl (Benadryl), 25 MG PO Q8HRS Epinephrine (Epipen 2-[place]), 1 SYR IM ONCE Ipratropium/Albuterol Sulfate (Duoneb 0.5-3(2.5) Mg/3 Ml), 3 ML NEB Q4HRS Metolazone (Metolazone), 5 MG PO DAILY Metoprolol Succinate (Toprol Xl), 1 TAB PO DAILY, (Reported) Nicotine (NICODERM CQ 21mg), 1 PATCH TP DAILY, (Reported) Potassium Chloride (Potassium Chloride ), 20 MEQ PO DAILY Prednisone (Prednisone), 20 MG PO DAILY Scheduled PRN Acetaminophen (Acetaminophen), 2 TAB PO PRN Q4HRS PRN for pain or fever, (Reported) Albuterol Sulfate (Albuterol Sulfate Neb Soln), 0.63 MG NEB PRN Q4HRS PRN for SHORTNESS OF BREATH Magnesium Hydroxide (Milk Of Magnesia), 2,400 MG PO PRN DAILY PRN for CONSTIPATION, (Reported) Discontinued Medications Lisinopril (Lisinopril), 20 MG PO DAILY Simvastatin (Zocor), 20 MG PO HS, (Reported) Total Time: Total Time: Total time spent was 40 minutes in preparing scripts, discharge planning with SWI and RN and preparing this discharge summary Patient seen and examined on day of discharge. No acute abnormal findings. Nicktion of Admission Dx: Justifications for Admission: Justification of Admission Dx: Yes Respiratory Failure: Severe Resp Distress ANT ALVAREZ MD August 24, 2020 13:38
--- NOTE | 2020-08-24 13:40 | NUR ---
patient left per hospital transportation with 02 6L to home. has 02 at home at 6L. discharge inst. given to follow up with primary zenaida. inst no suzan,review meds with primary and pharmacy. RX reviewed epi pen,prednisone,benadryl called in by DR. reyes, PATIENT STABLE UPON DISCHARGE
[2020-09-05] MEDS ORDERED: ATOR40TA59 PO (18:15)
[2020-09-10] MEDS ORDERED: HYDR-2868 PO (10:54)
[2020-09-10] MEDS ORDERED: ISOS30TA68 PO (10:54)
== END 2020-08-24 13:45 | disposition home or self-care (01) ==
LOC: ER 03:56 → 1 WEST ICU 06:08 → INTOOBSV 06:08
PROVIDERS: ADMIT Internal Medicine; ATTEND Internal Medicine
DX: J96.11 Chronic respiratory failure with hypoxia (principal); T78.3XXA Angioneurotic edema, initial encounter; N17.0 Acute kidney failure with tubular necrosis; I13.0 Hypertensive heart and chronic kidney disease with heart failure and stage 1 through stage 4 chronic kidney disease, or unspecified chronic kidney disease; I50.42 Chronic combined systolic (congestive) and diastolic (congestive) heart failure; I48.0 Paroxysmal atrial fibrillation; I49.5 Sick sinus syndrome; J44.9 Chronic obstructive pulmonary disease, unspecified; N18.9 Chronic kidney disease, unspecified; E78.00 Pure hypercholesterolemia, unspecified; I42.8 Other cardiomyopathies; K12.2 Cellulitis and abscess of mouth; F14.90 Cocaine use, unspecified, uncomplicated; R13.10 Dysphagia, unspecified; Z95.0 Presence of cardiac pacemaker; Z87.891 Personal history of nicotine dependence; Z79.82 Long term (current) use of aspirin
CPT/HCPCS: 36415; 70486; 71045; 80048; 80053; 83605; 83735; 84484; 85025; 87040; 93005; 96365; 96375; 96376; 99291; G0378; J0696; J2920; J2930; J3490; G0379; 99285-25

== ENCOUNTER 2020-10-05 15:47 | Inpatient (IN) | payer MEDICARE, MEDICAID ==
[~2020-10-05] VITALS: Ht 185.4 cm; Wt 95.3 kg
[~2020-10-05 15:47] MED LIST changes: +ATOR40TA59 PO; +DIPH25CA58 PO; +DOXY-181 PO; -DOXY100C14 PO; +EPIPEN 2-P0.3 MG/0.3 IM; +ISOS30TA68 PO
[2020-10-05 16:36] LABS: BASO % 0 % (0-3); EOS # 0.1 x10^3/uL (0.0-0.7); EOS % 2 % (0-3); HEMATOCRIT 32.3 % (39.0-53.0); HEMOGLOBIN 10.8 g/dL (13.0-17.5); LYMPH # 0.5 x10^3/uL (1.0-4.8); LYMPH % 7 % (24-48); MEAN CORPUSCULAR HEMOGLOBIN 31 pg (25-35); MEAN CORPUSCULAR HGB CONC 34 g/dL (31-37); MEAN CORPUSCULAR VOLUME 92 fL (79-100); MONO # 0.7 x10^3/uL (0.0-1.1); MONO % 9 % (0-9); NEUT # 6.4 x10^3/uL (1.8-7.7); NEUT % 82 % (31-73); PLATELET COUNT 141 x10^3/uL (140-400); RED CELL DISTRIBUTION WIDTH 16.7 % (11.5-14.5); WHITE BLOOD COUNT 7.8 x10^3/uL (4.0-11.0)
[2020-10-05] MEDS ORDERED: IPRATRPIUM/ALBUTEROL 0.5/2.5MG 3 ML NEBU. NEB ONE (16:45)
--- NOTE | 2020-10-05 16:54 | RAD ---
Exam: Chest one view INDICATION: Short of air TECHNIQUE: Frontal view of the chest Comparisons: None FINDINGS: Pacer with leads remaining the right atrium and ventricle. Heart is mildly enlarged pulmonary vessels are within normal limits. Hazy bilateral airspace disease. IMPRESSION: Findings likely related to pulmonary edema. Superimposed infectious process is difficult to exclude. Electronically signed by: Leroy Irving MD (10/05/2020 4:52 PM) MARCO
--- NOTE | 2020-10-05 17:00 | EKG ---
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
--- NOTE | 2020-10-05 17:38 | PHYS DOC ---
Past Medical History Past Medical History: Asthma, CHF, COPD, Hypertension Additional Past Medical Histor: wears 6lpm NC at home Past Surgical History: Pacemaker, Other Additional Past Surgical Histo: Abdominal Hernia Smoking Status: Former Smoker Alcohol Use: Rarely Drug Use: Cocaine, Marijuana Social History Narrative: Last used cocaine 10/04/20 General Adult EDM: Chief Complaint: SHORTNESS OF BREATH HPI: HPI: Patient is a 65 year old male who was brought here by EMS from home due to trouble breathing. Patient has history of CHF, he is on 6 L of oxygen at home. Patient admitted of using cocaine yesterday. Patient also has a history of COPD. Patient denies any chest pain, no fever. Patient said he was vaccinated for COVID-19 already. Patient denies any abdominal pain, no nausea vomiting. Patient said he been having trouble breathing with exertion, also said he has been retaining fluid. Review of Systems: Review of Systems: Constitutional: Denies fever or chills. [] Eyes: Denies change in visual acuity. [] HENT: Denies nasal congestion or sore throat. [] Respiratory: Denies cough , POSITIVE FOR shortness of breath. [] Cardiovascular: Denies chest pain , POSITIVE FOR edema. [] GI: Denies abdominal pain, nausea, vomiting, bloody stools or diarrhea. [] : Denies dysuria. [] Musculoskeletal: Denies back pain or joint pain. [] Integument: Denies rash. [] Neurologic: Denies headache, focal weakness or sensory changes. [] Endocrine: Denies polyuria or polydipsia. [] Lymphatic: Denies swollen glands. [] Psychiatric: Denies depression or anxiety. [] Heart Score: C/O Chest Pain: N/A HEART Score for Chest Pain: HEART Score for Chest Pain Response (Comments) Value History Slighlty/Non-Suspicious 0 ECG Nonspecific Repolarizatio 1 Age >45 - < 65 1 Risk Factors >3 Risk Factors or Hx CAD 2 Troponin >3 x Normal Limit 2 Total 6 Risk Factors: Risk Factors: DM, Current or recent (<one month) smoker, HTN, HLP, family history of CAD, obesity. Risk Scores: Score 0 - 3: 2.5% MACE over next 6 weeks - Discharge Home Score 4 - 6: 20.3% MACE over next 6 weeks - Admit for Clinical Observation Score 7 - 10: 72.7% MACE over next 6 weeks - Early Invasive Strategies Current Medications: Current Medications Medications (Trade) Dose Ordered Sig/Dex Start Time Stop Time Status Last Admin Dose Admin Albuterol/ Ipratropium (Duoneb) 3 ml 1X ONCE 10/05/20 16:45 10/05/20 16:46 DC 10/05/20 16:49 3 ML Allergies: Allergies: Allergies Coded Allergies Type Severity Reaction Last Updated Verified levofloxacin Allergy Intermediate Itching 01/28/20 Yes Physical Exam: PE: Constitutional: Well developed, well nourished, no acute distress, non-toxic appearance. [] HENT: Normocephalic, atraumatic, bilateral external ears normal, oropharynx moist, no oral exudates, nose normal. [] Eyes: PERRLA, EOMI, conjunctiva normal, no discharge. [] Neck: Normal range of motion, no tenderness, supple, no stridor. [] Cardiovascular:Heart rate regular rhythm, no murmur , POSITIVE FOR EDEMA. Lungs & Thorax: Bilateral breath sounds WITH EXPIRATORY WHEEZING to auscultati on [] Abdomen: Bowel sounds normal, soft, no tenderness, no masses, no pulsatile masses. [] Skin: Warm, dry, no erythema, no rash. [] Back: No tenderness, no CVA tenderness. [] Extremities: No tenderness, no cyanosis, no clubbing, ROM intact, POSITIVE FOR edema. [] Neurologic: Alert and oriented X 3, normal motor function, normal sensory function, no focal deficits noted. [] Psychologic: Affect normal, judgement normal, mood normal. [] Current Patient Data: Labs: Laboratory Tests Test 10/05/20 16:23 White Blood Count 7.8 x10^3/uL (4.0-11.0) Red Blood Count 3.50 x10^6/uL (4.30-5.70) L Hemoglobin 10.8 g/dL (13.0-17.5) L Hematocrit 32.3 % (39.0-53.0) L Mean Corpuscular Volume 92 fL (79-100) Mean Corpuscular Hemoglobin 31 pg (25-35) Mean Corpuscular Hemoglobin Concent 34 g/dL (31-37) Red Cell Distribution Width 16.7 % (11.5-14.5) H Platelet Count 141 x10^3/uL (140-400) Neutrophils (%) (Auto) 82 % (31-73) H Lymphocytes (%) (Auto) 7 % (24-48) L Monocytes (%) (Auto) 9 % (0-9) Eosinophils (%) (Auto) 2 % (0-3) Basophils (%) (Auto) 0 % (0-3) Neutrophils # (Auto) 6.4 x10^3/uL (1.8-7.7) Lymphocytes # (Auto) 0.5 x10^3/uL (1.0-4.8) L Monocytes # (Auto) 0.7 x10^3/uL (0.0-1.1) Eosinophils # (Auto) 0.1 x10^3/uL (0.0-0.7) Basophils # (Auto) 0.0 x10^3/uL (0.0-0.2) Laboratory Tests 10/05/20 16:23 Vital Signs: Vital Signs Date Time Temp Pulse Resp B/P (MAP) Pulse Ox O2 Delivery O2 Flow Rate FiO2 10/05/20 16:49 93 Nasal Cannula 6.0 10/05/20 15:50 98.6 66 20 177/91 (355) 98.6 EKG: EKG: EKG was done at 1604, heart rate of 66 bpm, sinus rhythm, right axis deviation, wide QRS complex Radiology/Procedures: Radiology/Procedures: [][facility] [address] [place] [address] IMAGING REPORT Signed PATIENT: NEIL EWING ACCOUNT: [id number] : 1955 LOCATION: ER AGE: 65 SEX: M EXAM STATUS: REG ER ORD. PHYSICIAN: SEAMUS PRABHAKAR DO REASON: soa PROCEDURE: PORTABLE CHEST 1V Exam: Chest one view INDICATION: Short of air TECHNIQUE: Frontal view of the chest Comparisons: None FINDINGS: Pacer with leads remaining the right atrium and ventricle. Heart is mildly enlarged pulmonary vessels are within normal limits. Hazy bilateral airspace disease. IMPRESSION: Findings likely related to pulmonary edema. Superimposed infectious process is difficult to exclude. Electronically signed by: Leroy Huerta MD (10/05/2020 4:52 PM) [facility] DICTATED and SIGNED BY: LEROY HUERTA MD DATE: 10/05/20 [id number] 0 Course & Med Decision Making: Course & Med Decision Making Pertinent Labs and Imaging studies reviewed. (See chart for details) Patient is a 65-year-old male who presented to ER due to trouble breathing with exertion. Patient has history of COPD and CHF. Patient is on 6 L of oxygen at home all the time. Chest x-ray show pulmonary congestion. Patient will be admitted to hospital for further evaluation and treatment. Discussed with the hospitalist on-call Dr. Paulino who agreed to admit the patient. Dragon Disclaimer: Dragon Disclaimer: This electronic medical record was generated, in whole or in part, using a voice recognition dictation system. Departure Departure Impression: Primary Impression: Acute exacerbation of CHF (congestive heart failure) Additional Impression: COPD exacerbation Disposition: ADMITTED INPATIENT Admitting Physician: AKOSUAS (Dr. Paulino) Condition: STABLE Referrals: JARED BLAKE MD (PCP) SEAMUS PRABHAKAR DO Oct 05, 2020 17:38
[2020-10-05] MEDS ORDERED: methylPREDNISolone SOD SUCC PF 125 MG/2 ML VIAL. IV ONE (17:45)
[2020-10-05 17:53] LABS: CALCIUM 9.7 mg/dL (8.5-10.1); CREATININE 2.1 mg/dL (0.7-1.3); GFR 38.7; POTASSIUM 3.5 mmol/L (3.5-5.1)
[2020-10-05 17:59] LABS: ALBUMIN 3.4 g/dL (3.4-5.0); ALBUMIN/GLOBULIN RATIO 0.9 (1.0-1.7); MAGNESIUM 2.3 mg/dL (1.8-2.4); TOTAL BILIRUBIN 1.1 mg/dL (0.2-1.0); TOTAL PROTEIN 7.4 g/dL (6.4-8.2)
[2020-10-05] MEDS ORDERED: ONDANSETRON PF 4 MG/2 ML VIAL. IV PRN (18:00)
[2020-10-05] MEDS: IPRATRPIUM/ALBUTEROL 0.5/2.5MG 3 ML NEBU. NEB SCH (20:17)
[2020-10-05 20:40] VITALS: BP 129/78
[2020-10-05 23:45] VITALS: BP 126/84
[2020-10-06 04:40] VITALS: BP 126/78
[2020-10-06 07:00] VITALS: BP 123/77
[2020-10-06] MEDS: IPRATRPIUM/ALBUTEROL 0.5/2.5MG 3 ML NEBU. NEB SCH ×4 (07:52→20:36)
--- NOTE | 2020-10-06 10:44 | PDOC1 ---
History and Physical Date of Service: DOS: DATE: 10/06/20 TIME: 10:39 Chief Complaint: Chief Complain: Shortness of breath History of Present Illness: HPI: 65 year old male who was brought here by EMS from home due to trouble breathing. Patient has history of CHF, he is on 6 L of oxygen at home. Patient admitted of using cocaine yesterday. Patient also has a history of COPD. Patient denies any chest pain, no fever. Patient said he was vaccinated for COVID-19 already. Patient denies any abdominal pain, no nausea vomiting. Patient said he been having trouble breathing with exertion, also said he has been retaining fluid. Past Medical/Surgical History: PMH/PSH: Past Medical History: Asthma, CHF, COPD, Hypertension, wears 6lpm NC at home Past Surgical History: Pacemaker, Abdominal Hernia Allergies: Allergies: Coded Allergies: levofloxacin (Verified Allergy, Intermediate, Itching, 01/28/20) Family History: Family History: Reviewed with no relevant findings Social History: Social History: Smoking Status: Former Smoker Alcohol Use: Rarely Drug Use: Cocaine, Marijuana Social History Narrative: Last used cocaine 10/04/20 Current Medications: Current Medications Current Medications Albuterol/ Ipratropium (Duoneb) 3 ml 1X ONCE NEB Last administered on 10/05/20at 16:49; Start 10/05/20 at 16:45; Stop 10/05/20 at 16:46; Status DC Methylprednisolone Sodium Succinate (SOLU-Medrol 125MG VIAL) 125 mg 1X ONCE IV Last administered on 10/05/20at 18:38; Start 10/05/20 at 17:45; Stop 10/05/20 at 17:46; Status DC Ondansetron HCl (Zofran) 4 mg PRN Q8HRS PRN IV NAUSEA/VOMITING Last administered on 10/05/20at 18:38; Start 10/05/20 at 18:00; Stop 10/06/20 at 17:59 Albuterol/ Ipratropium (Duoneb) 3 ml RTQID NEB Last administered on 10/06/20at 07:52; Start 10/05/20 at 20:00; Stop 10/06/20 at 19:59 Active Scripts Active Hydralazine Hcl 25 Mg Tablet 25 Mg PO TID 30 Days Isosorbide Mononitrate Er (Isosorbide Mononitrate) 30 Mg Tab.er.24h 30 Mg PO DAILY 30 Days Bumetanide 1 Mg Tablet 1 Mg PO BID 30 Days Amiodarone Hcl 200 Mg Tablet 200 Mg PO DAILY Potassium Chloride (Potassium Chloride) 20 Meq Tablet.er 20 Meq PO DAILY 30 Days Duoneb 0.5-3(2.5) Mg/3 Ml (Albuterol/Ipratropium) 3 Ml Ampul.neb 3 Ml NEB Q4HRS 30 Days Albuterol Sulfate Neb Soln (Albuterol Sulfate) 0.63 Mg/3 Ml Vial.neb 0.63 Mg NEB PRN Q4HRS PRN 30 Days NEEDED Reported Atorvastatin Calcium 40 Mg Tablet 40 Mg PO HS Milk Of Magnesia (Magnesium Hydroxide) 2,400 Mg/10 Ml Oral.susp 2,400 Mg PO PRN DAILY PRN Eliquis (Apixaban) 5 Mg Tablet 5 Mg PO BID Toprol Xl (Metoprolol Succinate) 25 Mg Tab.er.24h 1 Tab PO DAILY 30 Days ROS: Review of Systems Review of System REVIEW OF SYSTEMS: GENERAL: Denies weakness SKIN: No bruising, hair changes or rashes. EYES: No blurred, double or loss of vision. NOSE AND THROAT: No history of nosebleeds, hoarseness or sore throat. HEART: No history of palpitations, chest pain or shortness of breath on exertion. LUNGS: Denies cough, hemoptysis, wheezing or shortness of breath. GASTROINTESTINAL: Denies changes in appetite, nausea, vomiting, diarrhea or constipation. GENITOURINARY: No history of frequency, urgency, hesitancy or nocturia. NEUROLOGIC: Denies history of numbness, tingling, or tremor. PSYCHIATRIC: No history of panic, anxiety or depression. ENDOCRINE: No history of heat or cold intolerance, polyuria or polydipsia. EXTREMITIES: Denies joint pain, pain on walking or stiffness. Physical Exam: Vital Signs: Vital Signs Date Time Temp Pulse Resp B/P (MAP) Pulse Ox O2 Delivery O2 Flow Rate FiO2 10/06/20 08:09 Nasal Cannula 6.0 10/06/20 07:53 97 10/06/20 07:00 97.4 64 22 123/77 (92) 97.4 Physcial Exam: GEN: No apparent distress. Alert and oriented HEENT: Normal cephalic, atraumatic, external auditory canals are patent EYES: Extraocular muscles are intact, pupil are equally round and reactive to light and accommodation MUSCULOSKELETAL: Well developed , well nourished, good range of motion ENDOCRINE: No thyromegaly was palpated LYMPHATICS: No cervical chain or axillary nodes were noted HEMATOPOIETIC: No bruising NECK: Supple, no JVD, no thyromegaly was noted LUNGS: Clear to auscultation in all lung núñez without rhonchi or wheezing HEART: RRR, S!, S2 present. Peripheral pulses intact, no obvious murmurs noted ABDOMEN: Soft, nontender. Positive bowel sounds, no organomegaly, normal bowel sounds EXTREMITIES: Without clubbing, cyanosis, or edema. Pedal pulses intact. Negative Homans sign NEUROLOGIC: Normal speech and tone. A&O x 3, moves all extremities, no obvious focal deficits PSYCHIATRIC: Normal affect, normal mood. Stable SKIN: No ulcerations or rashes, good skin turgor, no jaundice VASCULAR: Good capillary refill, neurovascular bundle appears to be intact Labs: Labs: Laboratory Tests Test 10/05/20 16:23 10/05/20 17:30 White Blood Count 7.8 x10^3/uL (4.0-11.0) Red Blood Count 3.50 x10^6/uL (4.30-5.70) Hemoglobin 10.8 g/dL (13.0-17.5) Hematocrit 32.3 % (39.0-53.0) Mean Corpuscular Volume 92 fL (79-100) Mean Corpuscular Hemoglobin 31 pg (25-35) Mean Corpuscular Hemoglobin Concent 34 g/dL (31-37) Red Cell Distribution Width 16.7 % (11.5-14.5) Platelet Count 141 x10^3/uL (140-400) Neutrophils (%) (Auto) 82 % (31-73) Lymphocytes (%) (Auto) 7 % (24-48) Monocytes (%) (Auto) 9 % (0-9) Eosinophils (%) (Auto) 2 % (0-3) Basophils (%) (Auto) 0 % (0-3) Neutrophils # (Auto) 6.4 x10^3/uL (1.8-7.7) Lymphocytes # (Auto) 0.5 x10^3/uL (1.0-4.8) Monocytes # (Auto) 0.7 x10^3/uL (0.0-1.1) Eosinophils # (Auto) 0.1 x10^3/uL (0.0-0.7) Basophils # (Auto) 0.0 x10^3/uL (0.0-0.2) Sodium Level 144 mmol/L (136-145) Potassium Level 3.5 mmol/L (3.5-5.1) Chloride Level 105 mmol/L (98-107) Carbon Dioxide Level 29 mmol/L (21-32) Anion Gap 10 (6-14) Blood Urea Nitrogen 18 mg/dL (8-26) Creatinine 2.1 mg/dL (0.7-1.3) Estimated GFR (Cockcroft-Gault) 38.7 BUN/Creatinine Ratio 9 (6-20) Glucose Level 95 mg/dL (70-99) Calcium Level 9.7 mg/dL (8.5-10.1) Magnesium Level 2.3 mg/dL (1.8-2.4) Total Bilirubin 1.1 mg/dL (0.2-1.0) Aspartate Amino Transf (AST/SGOT) 15 U/L (15-37) Alanine Aminotransferase (ALT/SGPT) 15 U/L (16-63) Alkaline Phosphatase 67 U/L (46-116) Troponin I Quantitative 0.064 ng/mL (0.000-0.055) ZG-Dbn-K-Type Natriuretic Peptide 05429 pg/mL (0-124) Total Protein 7.4 g/dL (6.4-8.2) Albumin 3.4 g/dL (3.4-5.0) Albumin/Globulin Ratio 0.9 (1.0-1.7) Laboratory Tests Test 10/05/20 16:23 10/05/20 17:30 White Blood Count 7.8 x10^3/uL (4.0-11.0) Red Blood Count 3.50 x10^6/uL (4.30-5.70) Hemoglobin 10.8 g/dL (13.0-17.5) Hematocrit 32.3 % (39.0-53.0) Mean Corpuscular Volume 92 fL (79-100) Mean Corpuscular Hemoglobin 31 pg (25-35) Mean Corpuscular Hemoglobin Concent 34 g/dL (31-37) Red Cell Distribution Width 16.7 % (11.5-14.5) Platelet Count 141 x10^3/uL (140-400) Neutrophils (%) (Auto) 82 % (31-73) Lymphocytes (%) (Auto) 7 % (24-48) Monocytes (%) (Auto) 9 % (0-9) Eosinophils (%) (Auto) 2 % (0-3) Basophils (%) (Auto) 0 % (0-3) Neutrophils # (Auto) 6.4 x10^3/uL (1.8-7.7) Lymphocytes # (Auto) 0.5 x10^3/uL (1.0-4.8) Monocytes # (Auto) 0.7 x10^3/uL (0.0-1.1) Eosinophils # (Auto) 0.1 x10^3/uL (0.0-0.7) Basophils # (Auto) 0.0 x10^3/uL (0.0-0.2) Sodium Level 144 mmol/L (136-145) Potassium Level 3.5 mmol/L (3.5-5.1) Chloride Level 105 mmol/L (98-107) Carbon Dioxide Level 29 mmol/L (21-32) Anion Gap 10 (6-14) Blood Urea Nitrogen 18 mg/dL (8-26) Creatinine 2.1 mg/dL (0.7-1.3) Estimated GFR (Cockcroft-Gault) 38.7 BUN/Creatinine Ratio 9 (6-20) Glucose Level 95 mg/dL (70-99) Calcium Level 9.7 mg/dL (8.5-10.1) Magnesium Level 2.3 mg/dL (1.8-2.4) Total Bilirubin 1.1 mg/dL (0.2-1.0) Aspartate Amino Transf (AST/SGOT) 15 U/L (15-37) Alanine Aminotransferase (ALT/SGPT) 15 U/L (16-63) Alkaline Phosphatase 67 U/L (46-116) Troponin I Quantitative 0.064 ng/mL (0.000-0.055) HE-Fns-L-Type Natriuretic Peptide 03917 pg/mL (0-124) Total Protein 7.4 g/dL (6.4-8.2) Albumin 3.4 g/dL (3.4-5.0) Albumin/Globulin Ratio 0.9 (1.0-1.7) Images: Images CXR IMPRESSION: Findings likely related to pulmonary edema. Superimposed infectious process is difficult to exclude. Assessment/Plan Assessment/Plan Acute hypoxic respiratory failure Acute on chronic systolic/diastolic CHF exacerbation, EF 20 to 25% History of cocaine abuse last use yesterday Anemia of chronic CHF History of CKD stage IIIstable History of COPDon trilogy CPAP at home History of asthma History of SSS/ NICM s/p BiV PPM/IMPROVEMENT ANALYST-P (Biotronik); LVEF 20-25% Bi-V pacing 100% History of paroxysmal atrial fibrillation Admit to medicine for further management Cardiology consult Pulmonology consult Strict I's and O's Lasix as needed Drug avoidance counseling Eliquis for DVT prophylaxis Protonix GI prophylaxis ADA diet Full code Discussed with RN and SW Disposition inpatient management as above Surrogate decision maker is undesignated Justifications for Admission Other Justification CHF vs COPD exacerbation hypoxic resp fail ANT ALVAREZ MD Oct 06, 2020 10:44
[2020-10-06 11:00] VITALS: BP 126/84
[2020-10-06 15:00] VITALS: BP 121/75
[2020-10-06 19:00] VITALS: BP 126/81
[2020-10-06] MEDS ORDERED: DOCUSATE SODIUM 100 MG CAPSULE. PO PRN (19:30)
[2020-10-06] MEDS ORDERED: DEXTROSE 50% 25 GM / 50ML DISP.SYRIN. IV PRN (19:30)
[2020-10-06] MEDS ORDERED: ONDANSETRON PF 4 MG/2 ML VIAL. IVP PRN (19:30)
[2020-10-06] MEDS ORDERED: SENNOSIDES 8.6 MG TABLET PO PRN (19:30)
[2020-10-06] MEDS ORDERED: ACETAMINOPHEN 325 MG TABLET. PO PRN (19:30)
[2020-10-06] MEDS ORDERED: BUMETANIDE 1 MG TABLET. PO SCH (20:00)
[2020-10-06] MEDS: APIXABAN 5 MG TABLET. PO SCH (20:58)
[2020-10-06] MEDS: ATORVASTATIN CALCIUM 40 MG TABLET. PO SCH (20:59)
[2020-10-06] MEDS: METOPROLOL SUCC 24HR ER 25 MG TAB.ER.24H. PO SCH (20:59)
[2020-10-06] MEDS: hydrALAZINE 25 MG TABLET PO SCH (20:59)
[2020-10-06] MEDS: ISOSORBIDE MONONITRATE ER 30 MG TAB.ER.24H PO SCH (20:59)
[2020-10-06 23:00] VITALS: BP 132/82
[2020-10-07 03:00] VITALS: BP 127/74
[2020-10-07] MEDS: IPRATRPIUM/ALBUTEROL 0.5/2.5MG 3 ML NEBU. NEB SCH ×7 (04:00→23:49)
[2020-10-07 05:05] LABS: BASO % 1 % (0-3); EOS % 0 % (0-3); HEMATOCRIT 32.1 % (39.0-53.0); HEMOGLOBIN 10.3 g/dL (13.0-17.5); LYMPH # 0.6 x10^3/uL (1.0-4.8); LYMPH % 6 % (24-48); MEAN CORPUSCULAR HEMOGLOBIN 30 pg (25-35); MEAN CORPUSCULAR HGB CONC 32 g/dL (31-37); MEAN CORPUSCULAR VOLUME 93 fL (79-100); MONO % 11 % (0-9); NEUT # 7.9 x10^3/uL (1.8-7.7); NEUT % 82 % (31-73); PLATELET COUNT 156 x10^3/uL (140-400); RED BLOOD COUNT 3.46 x10^6/uL (4.30-5.70); RED CELL DISTRIBUTION WIDTH 16.5 % (11.5-14.5); WHITE BLOOD COUNT 9.6 x10^3/uL (4.0-11.0)
[2020-10-07 05:24] LABS: CALCIUM 9.8 mg/dL (8.5-10.1); CREATININE 2.4 mg/dL (0.7-1.3); GFR 33.1; MAGNESIUM 2.5 mg/dL (1.8-2.4); PHOSPHORUS 3.3 mg/dL (2.6-4.7); POTASSIUM 4.5 mmol/L (3.5-5.1)
[2020-10-07 07:00] VITALS: BP 130/83
[2020-10-07] MEDS: hydrALAZINE 25 MG TABLET PO SCH ×3 (08:38→20:59)
[2020-10-07] MEDS: AMIODARONE HCL 200 MG TABLET. PO SCH (08:38)
[2020-10-07] MEDS: ISOSORBIDE MONONITRATE ER 30 MG TAB.ER.24H PO SCH (08:38)
[2020-10-07] MEDS: APIXABAN 5 MG TABLET. PO SCH ×2 (08:38→20:59)
[2020-10-07] MEDS: METOPROLOL SUCC 24HR ER 25 MG TAB.ER.24H. PO SCH (08:38)
[2020-10-07] MEDS: BUMETANIDE 1 MG/4 ML VIAL. IV SCH ×2 (08:44→13:44)
--- NOTE | 2020-10-07 10:30 | PDOC2 ---
CONSULT Date of Consult Date of Consult DATE: 10/07/20 TIME: 10:30 Reason for Consult Reason for Consult: Congestive heart failure Referring Physician Referring Physician: Dr. Copeland Identification/Chief Complaint Chief Complaint Shortness of breath Source Source: Chart review, Patient History of Present Illness Reason for Visit: 65-year-old male with history of chronic systolic heart failure s/p biventricular ICD implantation, paroxysmal atrial fibrillation and COPD on home oxygen therapy presented with 2 to 3-day history of progressive shortness of priyank ath. He has history of substance abuse disorder and apparently used cocaine at a green party 3 days ago. He denied any chest pain, palpitations or syncope. He also denied any ICD firing episodes. Past Medical History Cardiovascular: CHF, HTN, Hyperlipidemia Pulmonary: Asthma, COPD GI: Other Heme/Onc: No pertinent hx Hepatobiliary: No pertinent hx Psych: No pertinent hx, Addictions Rheumatologic: No pertinent hx Infectious disease: No pertinent hx Renal/: Chronic renal insuff Endocrine: No pertinent hx Past Surgical History Past Surgical History: Appendectomy, Hernia Repair, Other Family History Family History: Alcohol Abuse, Coronary Artery Disease, Diabetes, Hypertension Social History ALCOHOL: none Drugs: Cocaine, Marijuana Lives: Alone Domestic Violence: Neg Current Problem List Problem List Problems Medical Problems: (1) Acute exacerbation of CHF (congestive heart failure) Status: Acute (2) COPD exacerbation Status: Acute Current Medications Current Medications Current Medications Albuterol/ Ipratropium (Duoneb) 3 ml 1X ONCE NEB Last administered on 10/05/20at 16:49; Start 10/05/20 at 16:45; Stop 10/05/20 at 16:46; Status DC Methylprednisolone Sodium Succinate (SOLU-Medrol 125MG VIAL) 125 mg 1X ONCE IV Last administered on 10/05/20at 18:38; Start 10/05/20 at 17:45; Stop 10/05/20 at 17:46; Status DC Ondansetron HCl (Zofran) 4 mg PRN Q8HRS PRN IV NAUSEA/VOMITING Last administered on 10/05/20at 18:38; Start 10/05/20 at 18:00; Stop 10/06/20 at 17:59; Status DC Albuterol/ Ipratropium (Duoneb) 3 ml RTQID NEB Last administered on 10/06/20at 15:30; Start 10/05/20 at 20:00; Stop 10/06/20 at 19:33; Status DC Amiodarone HCl (Cordarone) 200 mg DAILY PO Last administered on 10/07/20at 08:38; Start 10/07/20 at 09:00 Apixaban (Eliquis) 5 mg BID PO Last administered on 10/07/20at 08:38; Start 10/06/20 at 21:00 Atorvastatin Calcium (Lipitor) 40 mg HS PO Last administered on 10/06/20at 20:59; Start 10/06/20 at 21:00 Bumetanide (Bumex) 1 mg BID94 PO Last administered on 10/06/20at 20:58; Start 10/06/20 at 20:00; Stop 10/07/20 at 08:33; Status DC Hydralazine HCl (Apresoline) 25 mg TID PO Last administered on 10/07/20at 08:38; Start 10/06/20 at 21:00 Albuterol/ Ipratropium (Duoneb) 3 ml Q4HRS NEB Last administered on 10/07/20at 08:48; Start 10/06/20 at 20:00 Isosorbide Mononitrate (Imdur) 30 mg DAILY PO Last administered on 10/07/20at 08:38; Start 10/06/20 at 20:00 Metoprolol Succinate (Toprol Xl) 25 mg DAILY PO Last administered on 10/07/20at 08:38; Start 10/06/20 at 20:00 Sennosides (Senna) 17.2 mg PRN BID PRN PO CONSTIPATION; Start 10/06/20 at 19:30 Docusate Sodium (Colace) 100 mg PRN DAILY PRN PO HARD STOOLS; Start 10/06/20 at 19:30 Ondansetron HCl (Zofran) 4 mg PRN Q6HRS PRN IVP NAUSEA/VOMITING; Start 10/06/20 at 19:30 Dextrose (Dextrose 50%-Water Syringe) 12.5 gm PRN Q15MIN PRN IV SEE COMMENTS; Start 10/06/20 at 19:30 Acetaminophen (Tylenol) 650 mg PRN Q4HRS PRN PO TEMP OVER 100.4F OR MILD PAIN; Start 10/06/20 at 19:30 Bumetanide (Bumex) 1 mg BID92 IV Last administered on 10/07/20at 08:44; Start 10/07/20 at 09:00 Active Scripts Active Hydralazine Hcl 25 Mg Tablet 25 Mg PO TID 30 Days Isosorbide Mononitrate Er (Isosorbide Mononitrate) 30 Mg Tab.er.24h 30 Mg PO DAILY 30 Days Bumetanide 1 Mg Tablet 1 Mg PO BID 30 Days Amiodarone Hcl 200 Mg Tablet 200 Mg PO DAILY Potassium Chloride (Potassium Chloride) 20 Meq Tablet.er 20 Meq PO DAILY 30 Days Duoneb 0.5-3(2.5) Mg/3 Ml (Albuterol/Ipratropium) 3 Ml Ampul.neb 3 Ml NEB Q4HRS 30 Days Albuterol Sulfate Neb Soln (Albuterol Sulfate) 0.63 Mg/3 Ml Vial.neb 0.63 Mg NEB PRN Q4HRS PRN 30 Days NEEDED Reported Atorvastatin Calcium 40 Mg Tablet 40 Mg PO HS Milk Of Magnesia (Magnesium Hydroxide) 2,400 Mg/10 Ml Oral.susp 2,400 Mg PO PRN DAILY PRN Eliquis (Apixaban) 5 Mg Tablet 5 Mg PO BID Toprol Xl (Metoprolol Succinate) 25 Mg Tab.er.24h 1 Tab PO DAILY 30 Days Allergies Allergies: Coded Allergies: levofloxacin (Verified Allergy, Intermediate, Itching, 01/28/20) ROS PSYCHOLOGICAL ROS: No: Hallucinations Eyes: No Loss of vision HEENT: No: Epistaxis Respiratory: YES: Shortness of breath; No: Hemoptysis Cardiovascular: No Chest Pain Genitourinary: No Hematuria Neurological: No Seizures Skin: No Rash Physical Exam General: Alert, No acute distress HEENT: Atraumatic Lungs: Other (Bilateral basal crepitations) Heart: Regular rate Extremities: No edema Neuro: Normal speech Psych/Mental Status: Mood NL Vitals VITALS Vital Signs Date Time Temp Pulse Resp B/P (MAP) Pulse Ox O2 Delivery O2 Flow Rate FiO2 10/07/20 08:49 95 Nasal Cannula 4.0 10/07/20 08:38 58 130/83 10/07/20 07:00 98.3 20 98.3 Labs Labs Laboratory Tests Test 10/05/20 16:23 10/05/20 17:30 10/07/20 04:45 White Blood Count 7.8 x10^3/uL (4.0-11.0) 9.6 x10^3/uL (4.0-11.0) Red Blood Count 3.50 x10^6/uL (4.30-5.70) 3.46 x10^6/uL (4.30-5.70) Hemoglobin 10.8 g/dL (13.0-17.5) 10.3 g/dL (13.0-17.5) Hematocrit 32.3 % (39.0-53.0) 32.1 % (39.0-53.0) Mean Corpuscular Volume 92 fL (79-100) 93 fL (79-100) Mean Corpuscular Hemoglobin 31 pg (25-35) 30 pg (25-35) Mean Corpuscular Hemoglobin Concent 34 g/dL (31-37) 32 g/dL (31-37) Red Cell Distribution Width 16.7 % (11.5-14.5) 16.5 % (11.5-14.5) Platelet Count 141 x10^3/uL (140-400) 156 x10^3/uL (140-400) Neutrophils (%) (Auto) 82 % (31-73) 82 % (31-73) Lymphocytes (%) (Auto) 7 % (24-48) 6 % (24-48) Monocytes (%) (Auto) 9 % (0-9) 11 % (0-9) Eosinophils (%) (Auto) 2 % (0-3) 0 % (0-3) Basophils (%) (Auto) 0 % (0-3) 1 % (0-3) Neutrophils # (Auto) 6.4 x10^3/uL (1.8-7.7) 7.9 x10^3/uL (1.8-7.7) Lymphocytes # (Auto) 0.5 x10^3/uL (1.0-4.8) 0.6 x10^3/uL (1.0-4.8) Monocytes # (Auto) 0.7 x10^3/uL (0.0-1.1) 1.0 x10^3/uL (0.0-1.1) Eosinophils # (Auto) 0.1 x10^3/uL (0.0-0.7) 0.0 x10^3/uL (0.0-0.7) Basophils # (Auto) 0.0 x10^3/uL (0.0-0.2) 0.0 x10^3/uL (0.0-0.2) Sodium Level 144 mmol/L (136-145) 143 mmol/L (136-145) Potassium Level 3.5 mmol/L (3.5-5.1) 4.5 mmol/L (3.5-5.1) Chloride Level 105 mmol/L (98-107) 106 mmol/L (98-107) Carbon Dioxide Level 29 mmol/L (21-32) 31 mmol/L (21-32) Anion Gap 10 (6-14) 6 (6-14) Blood Urea Nitrogen 18 mg/dL (8-26) 34 mg/dL (8-26) Creatinine 2.1 mg/dL (0.7-1.3) 2.4 mg/dL (0.7-1.3) Estimated GFR (Cockcroft-Gault) 38.7 33.1 BUN/Creatinine Ratio 9 (6-20) Glucose Level 95 mg/dL (70-99) 125 mg/dL (70-99) Calcium Level 9.7 mg/dL (8.5-10.1) 9.8 mg/dL (8.5-10.1) Magnesium Level 2.3 mg/dL (1.8-2.4) 2.5 mg/dL (1.8-2.4) Total Bilirubin 1.1 mg/dL (0.2-1.0) Aspartate Amino Transf (AST/SGOT) 15 U/L (15-37) Alanine Aminotransferase (ALT/SGPT) 15 U/L (16-63) Alkaline Phosphatase 67 U/L (46-116) Troponin I Quantitative 0.064 ng/mL (0.000-0.055) TV-Igi-T-Type Natriuretic Peptide 63011 pg/mL (0-124) Total Protein 7.4 g/dL (6.4-8.2) Albumin 3.4 g/dL (3.4-5.0) Albumin/Globulin Ratio 0.9 (1.0-1.7) Phosphorus Level 3.3 mg/dL (2.6-4.7) Laboratory Tests Test 10/07/20 04:45 White Blood Count 9.6 x10^3/uL (4.0-11.0) Red Blood Count 3.46 x10^6/uL (4.30-5.70) Hemoglobin 10.3 g/dL (13.0-17.5) Hematocrit 32.1 % (39.0-53.0) Mean Corpuscular Volume 93 fL (79-100) Mean Corpuscular Hemoglobin 30 pg (25-35) Mean Corpuscular Hemoglobin Concent 32 g/dL (31-37) Red Cell Distribution Width 16.5 % (11.5-14.5) Platelet Count 156 x10^3/uL (140-400) Neutrophils (%) (Auto) 82 % (31-73) Lymphocytes (%) (Auto) 6 % (24-48) Monocytes (%) (Auto) 11 % (0-9) Eosinophils (%) (Auto) 0 % (0-3) Basophils (%) (Auto) 1 % (0-3) Neutrophils # (Auto) 7.9 x10^3/uL (1.8-7.7) Lymphocytes # (Auto) 0.6 x10^3/uL (1.0-4.8) Monocytes # (Auto) 1.0 x10^3/uL (0.0-1.1) Eosinophils # (Auto) 0.0 x10^3/uL (0.0-0.7) Basophils # (Auto) 0.0 x10^3/uL (0.0-0.2) Sodium Level 143 mmol/L (136-145) Potassium Level 4.5 mmol/L (3.5-5.1) Chloride Level 106 mmol/L (98-107) Carbon Dioxide Level 31 mmol/L (21-32) Anion Gap 6 (6-14) Blood Urea Nitrogen 34 mg/dL (8-26) Creatinine 2.4 mg/dL (0.7-1.3) Estimated GFR (Cockcroft-Gault) 33.1 Glucose Level 125 mg/dL (70-99) Calcium Level 9.8 mg/dL (8.5-10.1) Phosphorus Level 3.3 mg/dL (2.6-4.7) Magnesium Level 2.5 mg/dL (1.8-2.4) Assessment/Plan Assessment/Plan 1. Acute respiratory failure secondary to combination of acute on chronic systolic heart failure and acute COPD exacerbation. 2D echo in August 2020 showed LVEF 25%. Telemetry showed ventricular paced rhythm. Slight troponin elevation probably demand ischemia. Continue diuresis. Pulmonary team following. 2. SSS/NICM s/p BiV PPM/YOUTH COORDINATOR-P (Biotronik); recent device interrogation showed normal function. 3. PAFIB; telemetry showed ventricular paced rhythm. Continue amiodarone for rhythm maintenance and Eliquis for stroke prophylaxis 4. HTN: well controlled 5. Hyperlipidemia: Continue statins 6. Substance abuse: Advised on abstinence from cocaine use especially in lieu of his diminished LVEF Thank you for your consultation KENIA SHEPHERD MD Oct 07, 2020 10:30
[2020-10-07 11:00] VITALS: BP 113/69
--- NOTE | 2020-10-07 11:25 | PDOC ---
[facility] PROGRESS NOTE Date of Service DOS: DATE: 10/07/20 TIME: 11:22 Chief Complaint Chief Complaint Assessment/Plan Acute hypoxic respiratory failure Acute on chronic systolic/diastolic CHF exacerbation, EF 20 to 25% History of cocaine abuse last use yesterday Anemia of chronic CHF History of CKD stage IIIstable History of COPDon trilogy CPAP at home History of asthma History of SSS/ NICM s/p BiV PPM/PROCESS CONTROLLER-P (Biotronik); LVEF 20-25% Bi-V pacing 100% History of paroxysmal atrial fibrillation Admit to medicine for further management Cardiology consult Pulmonology consult Strict I's and O's Lasix as needed Drug avoidance counseling Eliquis for DVT prophylaxis Protonix GI prophylaxis ADA diet Full code Discussed with RN and SW Disposition inpatient management as above Surrogate decision maker is undesignated History of Present Illness History of Present Illness 10/07/2020 No acute events overnight. Patient seen and examined bedside. Documented urine output about 400 cc. Increase of his weight from 90 to 92 kg. We will switch from p.o. to IV Bumex today and monitor for response. Pending cardiology evaluation. Dyspnea is improved. Patient's chart, labs, images were reviewed and discussed with RN 65 year old male who was brought here by EMS from home due to trouble b reathing. Patient has history of CHF, he is on 6 L of oxygen at home. Patient admitted of using cocaine yesterday. Patient also has a history of COPD. Patient denies any chest pain, no fever. Patient said he was vaccinated for COVID-19 already. Patient denies any abdominal pain, no nausea vomiting. Patient said he been having trouble breathing with exertion, also said he has been retaining fluid. Vitals/I&O Vitals/I&O: Vital Signs Date Time Temp Pulse Resp B/P (MAP) Pulse Ox O2 Delivery O2 Flow Rate FiO2 10/07/20 08:49 95 Nasal Cannula 4.0 10/07/20 08:38 58 130/83 10/07/20 07:00 98.3 20 98.3 I & O 10/06/20 10/06/20 10/07/20 15:00 23:00 07:00 Intake Total 540 ml 400 ml 220 ml Output Total 200 ml 200 ml Balance 340 ml 400 ml 20 ml Physical Exam Lungs: Clear Labs Labs: Laboratory Tests Test 10/07/20 04:45 White Blood Count 9.6 x10^3/uL (4.0-11.0) Red Blood Count 3.46 x10^6/uL (4.30-5.70) Hemoglobin 10.3 g/dL (13.0-17.5) Hematocrit 32.1 % (39.0-53.0) Mean Corpuscular Volume 93 fL (79-100) Mean Corpuscular Hemoglobin 30 pg (25-35) Mean Corpuscular Hemoglobin Concent 32 g/dL (31-37) Red Cell Distribution Width 16.5 % (11.5-14.5) Platelet Count 156 x10^3/uL (140-400) Neutrophils (%) (Auto) 82 % (31-73) Lymphocytes (%) (Auto) 6 % (24-48) Monocytes (%) (Auto) 11 % (0-9) Eosinophils (%) (Auto) 0 % (0-3) Basophils (%) (Auto) 1 % (0-3) Neutrophils # (Auto) 7.9 x10^3/uL (1.8-7.7) Lymphocytes # (Auto) 0.6 x10^3/uL (1.0-4.8) Monocytes # (Auto) 1.0 x10^3/uL (0.0-1.1) Eosinophils # (Auto) 0.0 x10^3/uL (0.0-0.7) Basophils # (Auto) 0.0 x10^3/uL (0.0-0.2) Sodium Level 143 mmol/L (136-145) Potassium Level 4.5 mmol/L (3.5-5.1) Chloride Level 106 mmol/L (98-107) Carbon Dioxide Level 31 mmol/L (21-32) Anion Gap 6 (6-14) Blood Urea Nitrogen 34 mg/dL (8-26) Creatinine 2.4 mg/dL (0.7-1.3) Estimated GFR (Cockcroft-Gault) 33.1 Glucose Level 125 mg/dL (70-99) Calcium Level 9.8 mg/dL (8.5-10.1) Phosphorus Level 3.3 mg/dL (2.6-4.7) Magnesium Level 2.5 mg/dL (1.8-2.4) Assessment and Plan Assessmemt and Plan Problems Medical Problems: (1) Acute exacerbation of CHF (congestive heart failure) Status: Acute (2) COPD exacerbation Status: Acute Comment Review of Relevant I have reviewed the following items rishi (where applicable) has been applied. Medications: Current Medications Medications (Trade) Dose Ordered Sig/Dex Route PRN Reason Start Time Stop Time Status Last Admin Dose Admin Amiodarone HCl (Cordarone) 200 mg DAILY PO 10/07/20 09:00 10/07/20 08:38 Apixaban (Eliquis) 5 mg BID PO 10/06/20 21:00 10/07/20 08:38 Atorvastatin Calcium (Lipitor) 40 mg HS PO 10/06/20 21:00 10/06/20 20:59 Bumetanide (Bumex) 1 mg BID94 PO 10/06/20 20:00 10/07/20 08:33 DC 10/06/20 20:58 Hydralazine HCl (Apresoline) 25 mg TID PO 10/06/20 21:00 10/07/20 08:38 Albuterol/ Ipratropium (Duoneb) 3 ml Q4HRS NEB 10/06/20 20:00 10/07/20 08:48 Isosorbide Mononitrate (Imdur) 30 mg DAILY PO 10/06/20 20:00 10/07/20 08:38 Metoprolol Succinate (Toprol Xl) 25 mg DAILY PO 10/06/20 20:00 10/07/20 08:38 Bumetanide (Bumex) 1 mg BID92 IV 10/07/20 09:00 10/07/20 08:44 Justifications for Admission Other Justification CHF vs COPD exacerbation hypoxic resp fail ANT ALVAREZ MD Oct 07, 2020 11:25
[2020-10-07 15:00] VITALS: BP 132/80
[2020-10-07 19:33] VITALS: BP 121/70
[2020-10-07] MEDS: ATORVASTATIN CALCIUM 40 MG TABLET. PO SCH (20:59)
[2020-10-07 22:03] VITALS: BP 120/69
[2020-10-08 03:02] VITALS: BP 128/81
[2020-10-08] MEDS: IPRATRPIUM/ALBUTEROL 0.5/2.5MG 3 ML NEBU. NEB SCH ×6 (03:54→23:46)
[2020-10-08 07:08] VITALS: BP 137/92
[2020-10-08] MEDS: hydrALAZINE 25 MG TABLET PO SCH ×3 (08:56→21:54)
[2020-10-08] MEDS: BUMETANIDE 1 MG/4 ML VIAL. IV SCH ×2 (08:56→14:08)
[2020-10-08] MEDS: ISOSORBIDE MONONITRATE ER 30 MG TAB.ER.24H PO SCH (08:56)
[2020-10-08] MEDS: APIXABAN 5 MG TABLET. PO SCH ×2 (08:57→21:53)
[2020-10-08] MEDS: AMIODARONE HCL 200 MG TABLET. PO SCH (08:57)
[2020-10-08] MEDS: METOPROLOL SUCC 24HR ER 25 MG TAB.ER.24H. PO SCH (09:00)
--- NOTE | 2020-10-08 09:16 | PDOC ---
[facility] PROGRESS NOTE Date of Service DOS: DATE: 10/08/20 TIME: 09:16 Chief Complaint Chief Complaint Assessment/Plan Acute hypoxic respiratory failure Acute on chronic systolic/diastolic CHF exacerbation, EF 20 to 25% History of cocaine abuse last use yesterday Anemia of chronic CHF History of CKD stage IIIstable History of COPDon trilogy CPAP at home History of asthma History of SSS/ NICM s/p BiV PPM/PHP MAGENTO DEVELOPER-P (Biotronik); LVEF 20-25% Bi-V pacing 100% History of paroxysmal atrial fibrillation Admit to medicine for further management Cardiology consult Pulmonology consult Strict I's and O's Lasix as needed Drug avoidance counseling Eliquis for DVT prophylaxis Protonix GI prophylaxis ADA diet Full code Discussed with RN and SW Disposition inpatient management as above Surrogate decision maker is undesignated History of Present Illness History of Present Illness No overnight events, another 2000ml UOP. Dyspnea on exertion improved to 5 feet today. 10/07/2020 No acute events overnight. Patient seen and examined bedside. Documented urine output about 400 cc. Increase of his weight from 90 to 92 kg. We will switch from p.o. to IV Bumex today and monitor for response. Pending cardiology evaluation. Dyspnea is improved. Patient's chart, labs, images were reviewed and discussed with RN 65 year old male who was brought here by EMS from home due to trouble breathing. Patient has history of CHF, he is on 6 L of oxygen at home. Patient admitted of using cocaine yesterday. Patient also has a history of COPD. Aris oliva denies any chest pain, no fever. Patient said he was vaccinated for COVID-19 already. Patient denies any abdominal pain, no nausea vomiting. Patient said he been having trouble breathing with exertion, also said he has been retaining fluid. Vitals/I&O Vitals/I&O: Vital Signs Date Time Temp Pulse Resp B/P (MAP) Pulse Ox O2 Delivery O2 Flow Rate FiO2 10/08/20 07:57 95 Nasal Cannula 6.0 10/08/20 07:08 98.8 65 18 137/92 (107) 98.8 I & O 10/07/20 10/07/20 10/08/20 14:59 22:59 06:59 Intake Total 600 ml 240 ml 760 ml Output Total 300 ml 1700 ml 350 ml Balance 300 ml -1460 ml 410 ml Physical Exam General: Alert, No acute distress Heart: Regular rate Lungs: Clear Extremities: No edema Assessment and Plan Assessmemt and Plan Problems Medical Problems: (1) Acute exacerbation of CHF (congestive heart failure) Status: Acute (2) COPD exacerbation Status: Acute Comment Review of Relevant I have reviewed the following items rishi (where applicable) has been applied. Justifications for Admission Other Justification CHF vs COPD exacerbation hypoxic resp fail CARMEN OROZCO MD Oct 08, 2020 09:16
[2020-10-08 11:27] VITALS: BP 128/80
--- NOTE | 2020-10-08 12:15 | NUR ---
SS following for discharge planning. SS reviewed pt chart and discussed with pt RN. Pt is from home and is currently requiring oxygen at six liters nasal canula. Pt has home oxygen and home trilogy. Pt on IV Bumex and diuresing. PT/OT recommended home. SS will continue to follow for discharge planning.
--- NOTE | 2020-10-08 14:12 | PDOC ---
BRITTON MORAN WELDER SHIELDED METAL ARC 10/08/20 1412: CARDIO Progress Notes Date and Time Date of Service 10/08/20 Time of Evaluation 1400 Subjective Subjective: No Chest Pain, No Palpitations, No Dizziness, Other (not more SOA) Vitals Vitals Vital Signs Date Time Temp Pulse Resp B/P (MAP) Pulse Ox O2 Delivery O2 Flow Rate FiO2 10/08/20 14:09 63 128/80 10/08/20 11:27 98.9 14 93 Nasal Cannula 98.9 10/08/20 11:19 6.0 Weight Weight [ ] Input and Output Intake and Output Intake and Output 10/08/20 07:00 Intake Total 1600 ml Output Total 2350 ml Balance -750 ml Intake Oral 1600 ml Output Urine Total 2350 ml Physical Exam HEENT: Neck Supple W Full Motion Chest: Symmetric LUNGS: Other (crackles ) Heart: RRR (v paced ) Abdomen: Soft N/T Extremities: Other (2+ bilateral LE edema ) Neurology: alert, oriented, follow commands Assessment Assessment 1. Acute on chronic respiratory failure with CHF exacerbation and AE COPD 2. Acute on chronic combined systolic/diastolic CHF; improved IV diuresis 3. Mild troponin elevation; 0.06. most probably type II, demand ischemia. CP free 4. SSS/ NICM s/p BiV PPM/JAVA LEAD ARCHITECT-P (Biotronik); Echo 09/07 with LVEF 20-25%. recent device interrogation showed normal function. 5. PAFIB; v paced 6. HTN: controlled 7. Hyperlipidemia; statin 8. ASHLEY on CKD 9. Substance abuse; reports he used last week. abstinence reinforced Recommendations Ongoing diuresis with close monitoring of renal function 2Gm Na diet 2000cc FR May need inotropic support with milrinone therapy Continue amiodarone for rhythm maintenance Metoprolol for rate control Eliquis for stroke prophylaxis Supportive care Justicifation of Admission Dx: Justifications for Admission: Justification of Admission Dx: Yes Respiratory Failure: Severe Resp Distress CLAUDE LAUREANO MD 10/09/20 3588: CARDIO Progress Notes Assessment Assessment Patient seen and examined on 10/08/20. I agree with our nurse practitioners assessment and plan. Acute on chronic respiratory failure with CHF exacerbation and AE COPD. Continues to improve on present treatment. Acute on chronic combined systolic/diastolic CHF; improved diuresis Mild troponin elevation; 0.06. type II, demand ischemia. CP free SSS/ NICM s/p BiV PPM/JAVA LEAD ARCHITECT-P (Biotronik); Echo 09/07 with LVEF 20-25%. recent device interrogation showed normal function. PAFIB; v paced. Continuing metoprolol and Eliquis. HTN: controlled Hyperlipidemia; statin ASHLEY on CKD Substance abuse BRITTON MORAN APRN Oct 08, 2020 14:12 CLAUDE LAUREANO MD Oct 09, 2020 08:52
[2020-10-08 15:39] VITALS: BP 123/74
[2020-10-08 19:03] VITALS: BP 120/78
[2020-10-08] MEDS: ATORVASTATIN CALCIUM 40 MG TABLET. PO SCH (21:53)
[2020-10-08 22:55] VITALS: BP 137/84
[2020-10-09 02:25] VITALS: BP 133/87
[2020-10-09] MEDS: IPRATRPIUM/ALBUTEROL 0.5/2.5MG 3 ML NEBU. NEB SCH ×3 (04:03→11:25)
[2020-10-09 07:00] VITALS: BP 137/85
--- NOTE | 2020-10-09 07:48 | PDOC ---
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 Patient has history of CHF, he is on 6 L of oxygen at home. Patient admitted of using cocaine yesterday. Patient also has a history of COPD. Patient denies any chest pain, no fever. Patient said he was vaccinated for COVID-19 already. Patient denies any abdominal pain, no nausea vomiting. Patient said he been having trouble breathing with exertion, also said he has been retaining fluid. 10/07: No acute events overnight. Patient seen and examined bedside. Documented urine output about 400 cc. Increase of his weight from 90 to 92 kg. We will switch from p.o. to IV Bumex today and monitor for response. Pending cardiology evaluation. Dyspnea is improved. 10/08: No overnight events, another 2000ml UOP. Dyspnea on exertion improved to 5 feet today. Dyspnea improved. On home 6 L nasal cannula oxygen still with some lower extremity edema. Creatinine improved to 2. He was to go home with home health with cardiology and nephrology outpatient follow-up. Vitals/I&O Vitals/I&O: Vital Signs Date Time Temp Pulse Resp B/P (MAP) Pulse Ox O2 Delivery O2 Flow Rate FiO2 10/09/20 07:35 96 Nasal Cannula 6.0 10/09/20 02:25 98.4 65 18 133/87 (102) 98.4 I & O 10/08/20 10/08/20 10/09/20 15:00 23:00 07:00 Intake Total 240 ml 690 ml Output Total 1175 ml 750 ml 575 ml Balance -1175 ml -510 ml 115 ml Physical Exam General: Alert, No acute distress Heart: Regular rate Lungs: Clear Extremities: No edema Assessment and Plan Assessmemt and Plan Problems Medical Problems: (1) Acute exacerbation of CHF (congestive heart failure) Status: Acute (2) COPD exacerbation Status: Acute Comment Review of Relevant I have reviewed the following items rishi (where applicable) has been applied. Justifications for Admission Other Justification CHF vs COPD exacerbation hypoxic resp fail CARMEN OROZCO MD Oct 09, 2020 07:47
[2020-10-09] MEDS: BUMETANIDE 1 MG/4 ML VIAL. IV SCH (09:35)
[2020-10-09] MEDS: hydrALAZINE 25 MG TABLET PO SCH (09:36)
[2020-10-09] MEDS: METOPROLOL SUCC 24HR ER 25 MG TAB.ER.24H. PO SCH (09:36)
[2020-10-09] MEDS: AMIODARONE HCL 200 MG TABLET. PO SCH (09:36)
[2020-10-09] MEDS: ISOSORBIDE MONONITRATE ER 30 MG TAB.ER.24H PO SCH (09:37)
[2020-10-09] MEDS: APIXABAN 5 MG TABLET. PO SCH (09:37)
[2020-10-09 10:32] LABS: CALCIUM 9.5 mg/dL (8.5-10.1); GFR 40.9; MAGNESIUM 2.7 mg/dL (1.8-2.4); POTASSIUM 3.6 mmol/L (3.5-5.1)
[2020-10-09 11:00] VITALS: BP 130/81
--- NOTE | 2020-10-09 11:06 | SNU/HH DC ---
DISCHARGE WITH HOME HEALTH DISCHARGE INFORMATION: Discharge Date: Oct 09, 2020 Final Diagnosis: Problems Medical Problems: (1) Acute exacerbation of CHF (congestive heart failure) Status: Acute (2) COPD exacerbation Status: Acute Condition on Discharge: Stable CODE STATUS: Code Status: Full HOME HEALTH: Face to Face: I certify this patient is under my care and that I, or a nurse practitioner or physician's marketing communications assistant working with me, had a face to face encounter that meets the physician face to face encounter requirements with this patient on 10/09/2020. Medical Complications: CHF, COPD Shelter For: Assess/Skilled Observatio, Medication Management RN For Eval/Treatment: Yes Physical Therapy For: Evalulation/Treatment Occupational Therapy For: Evaluation/Treatment Pt Meets Homebound Status: Extreme weakness w/ amb., Fatigue w/ amb. POST DISCHARGE ORDERS: Activity Instructions for Disc: Activity as tolerated Weight Bearing Status after Di: As tolerated DIET AFTER DISCHARGE: Cardiac Wound/Incision Care: No wound care needed CHECKS AFTER DISCHARGE: Checks after discharge: Check blood press - daily, Check your Temp as needed, Weigh Yourself Daily FOLLOW-UP: DC TO SNF LABS: CBC, CMP in 1 week TREATMENT/EQUIPMENT ORDERS: Adaptive Equipment Issued: None Discharge Respiratory Equipmen: Oxygen CERTIFICATION STATEMENT: Certification Statement: Certification Statement: Based on the above finding, I certify that this patient is confined to the home and needs intermittent fdc care, physical therapy and/or speech therapy, or continues to need occupational therapy.~ This patient is under my care, and I have initiated the establishment of the plan of care.~ This patient will be followed by myself or a community physician who will periodically review the plan of care. Home Meds Active Scripts Hydralazine Hcl (HYDRALAZINE HCL) 25 Mg Tablet, 25 MG PO TID for CHF for 30 Days, #90 TAB 5 Refills Prov:CARMEN OROZCO MD 09/10/20 Isosorbide Mononitrate (ISOSORBIDE MONONITRATE ER) 30 Mg Tab.er.24h, 30 MG PO DAILY for CHF for 30 Days, #30 TAB.SR 5 Refills Prov:CARMEN OROZCO MD 09/10/20 Bumetanide (BUMETANIDE) 1 Mg Tablet, 1 MG PO BID for Heart Failure for 30 Days, #60 TAB 3 Refills Prov:ANT ALVAREZ MD 04/07/20 Amiodarone Hcl (AMIODARONE HCL) 200 Mg Tablet, 200 MG PO DAILY for A-fib, #30 TAB 3 Refills Prov:PENNIE GONZALEZ MD 03/04/20 Potassium Chloride (POTASSIUM CHLORIDE ) 20 Meq Tablet.er, 20 MEQ PO DAILY for SUPPLEMENT for 30 Days, #30 TAB.SR 2 Refills Prov:CARMEN OROZCO MD 02/02/20 Ipratropium/Albuterol Sulfate (DUONEB 0.5-3(2.5) MG/3 ML) 3 Ml Ampul.neb, 3 ML NEB Q4HRS for COPD for 30 Days, #180 EACH Prov:HIREN ZHOU MD 05/09/19 Albuterol Sulfate (ALBUTEROL SULFATE NEB SOLN) 0.63 Mg/3 Ml Vial.neb, 0.63 MG NEB PRN Q4HRS PRN for SHORTNESS OF BREATH for 30 Days, #100 EACH 2 Refills NEEDED Prov:LOU HERNANDEZ MD 10/13/16 Reported Medications Atorvastatin Calcium (ATORVASTATIN CALCIUM) 40 Mg Tablet, 40 MG PO HS for FOR CHOLESTEROL, #30 TAB 0 Refills 09/05/20 Magnesium Hydroxide (MILK OF MAGNESIA) 2,400 Mg/10 Ml Oral.susp, 2400 MG PO PRN DAILY PRN for CONSTIPATION, MISC 03/28/20 Apixaban (ELIQUIS) 5 Mg Tablet, 5 MG PO BID for blood thinner, TAB 08/02/19 Metoprolol Succinate (TOPROL XL) 25 Mg Tab.er.24h, 1 TAB PO DAILY for blood pressure for 30 Days, #30 TAB 0 Refills 08/02/19 CARMEN OROZCO MD Oct 09, 2020 11:06
--- NOTE | 2020-10-09 11:43 | NUR ---
SS following up with discharge planning. SS reviewed pt chart and discussed with pt RN. Pt is from home and is currently requiring oxygen at six liters nasal canula. Pt has home oxygen and home trilogy. PT/OT recommended home. Discharge orders received for home healthcare. SS met with pt to discuss discharge planning. Pt previously had [facility], ; fax [phone]. Discharge orders and clinical phoned and faxed to [facility]. Pt needing transportation to home. Pt will discharge and return to home between 1300 and 1330 via [facility]. Pt and pt's RN notified.
--- NOTE | 2020-10-09 12:20 | PDOC ---
CARDIO Progress Notes Date and Time Date of Service 10/09/20 Time of Evaluation 1220 Subjective Subjective: No Chest Pain, No Palpitations, No Dizziness, Other (not more SOA, LE edema better) Vitals Vitals Vital Signs Date Time Temp Pulse Resp B/P (MAP) Pulse Ox O2 Delivery O2 Flow Rate FiO2 10/09/20 11:25 96 Nasal Cannula 6.0 10/09/20 11:00 99.0 71 18 130/81 (97) 99.0 Weight Weight [ ] Input and Output Intake and Output Intake and Output 10/09/20 07:00 Intake Total 930 ml Output Total 2500 ml Balance -1570 ml Intake Oral 930 ml Output Urine Total 2500 ml # Bowel Movements 1 Laboratory Labs Laboratory Tests Test 10/09/20 09:35 Sodium Level 143 mmol/L (136-145) Potassium Level 3.6 mmol/L (3.5-5.1) Chloride Level 104 mmol/L (98-107) Carbon Dioxide Level 34 mmol/L (21-32) Anion Gap 5 (6-14) Blood Urea Nitrogen 28 mg/dL (8-26) Creatinine 2.0 mg/dL (0.7-1.3) Estimated GFR (Cockcroft-Gault) 40.9 Glucose Level 123 mg/dL (70-99) Calcium Level 9.5 mg/dL (8.5-10.1) Magnesium Level 2.7 mg/dL (1.8-2.4) Physical Exam HEENT: Neck Supple W Full Motion Chest: Symmetric LUNGS: Other (diminished bases) Heart: RRR (v paced ) Abdomen: Soft N/T Extremities: Other (1+ bilateral LE edema ) Neurology: alert, oriented, follow commands Assessment Assessment 1. Acute on chronic respiratory failure with CHF exacerbation and AE COPD 2. Acute on chronic combined systolic/diastolic CHF; improved with IV diuresis 3. Mild troponin elevation; 0.06. most probably type II, demand ischemia. CP free 4. 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 recent device interrogation showed normal function. 5. PAFIB; v paced 6. HTN: controlled 7. Hyperlipidemia; statin 8. ASHLEY on CKD 9. Substance abuse; reports he used last week. abstinence reinforced Recommendations Resume oral diuresis 2Gm Na diet, 2000cc FR Daily weight monitoring Continue amiodarone for rhythm maintenance Metoprolol for rate control Eliquis for stroke prophylaxis Follow up in our office with Dr. Barakat as scheduled Supportive care Justicifation of Admission Dx: Justifications for Admission: Justification of Admission Dx: Yes Respiratory Failure: Severe Resp Distress BRITTON MORAN APRN Oct 09, 2020 12:20
--- NOTE | 2020-10-09 12:56 | PDOC3 ---
Discharge Summary Visit Information Date of Admission: Oct 05, 2020 Date of Discharge: Oct 09, 2020 Admitting Diagnosis: Acute CHF exacerbation Final Diagnosis Problems Medical Problems: (1) Acute exacerbation of CHF (congestive heart failure) Status: Acute (2) COPD exacerbation Status: Acute Brief Hospital Course Allergies Allergies Coded Allergies Type Severity Reaction Last Updated Verified levofloxacin Allergy Intermediate Itching 01/28/20 Yes Vital Signs Vital Signs Date Time Temp Pulse Resp B/P (MAP) Pulse Ox O2 Delivery O2 Flow Rate FiO2 10/09/20 11:25 96 Nasal Cannula 6.0 10/09/20 11:00 99.0 71 18 130/81 (97) 99.0 Lab Results Laboratory Tests Test 10/09/20 09:35 Sodium Level 143 mmol/L (136-145) Potassium Level 3.6 mmol/L (3.5-5.1) Chloride Level 104 mmol/L (98-107) Carbon Dioxide Level 34 mmol/L (21-32) Anion Gap 5 (6-14) Blood Urea Nitrogen 28 mg/dL (8-26) Creatinine 2.0 mg/dL (0.7-1.3) Estimated GFR (Cockcroft-Gault) 40.9 Glucose Level 123 mg/dL (70-99) Calcium Level 9.5 mg/dL (8.5-10.1) Magnesium Level 2.7 mg/dL (1.8-2.4) Laboratory Tests Test 10/09/20 09:35 Sodium Level 143 mmol/L (136-145) Potassium Level 3.6 mmol/L (3.5-5.1) Chloride Level 104 mmol/L (98-107) Carbon Dioxide Level 34 mmol/L (21-32) Anion Gap 5 (6-14) Blood Urea Nitrogen 28 mg/dL (8-26) Creatinine 2.0 mg/dL (0.7-1.3) Estimated GFR (Cockcroft-Gault) 40.9 Glucose Level 123 mg/dL (70-99) Calcium Level 9.5 mg/dL (8.5-10.1) Magnesium Level 2.7 mg/dL (1.8-2.4) Brief Hospital Course Mr James is a 65 year old male who was brought here by EMS from home due to trouble breathing. Patient has history of CHF, he is on 6 L of oxygen at home. Patient admitted of using cocaine yesterday. Patient also has a history of COPD. Patient denies any chest pain, no fever. Patient said he was vaccinated for COVID-19 already. Patient denies any abdominal pain, no nausea vomiting. Patient said he been having trouble breathing with exertion, also said he has been retaining fluid. 10/07: No acute events overnight. Patient seen and examined bedside. Documented urine output about 400 cc. Increase of his weight from 90 to 92 kg. We will switch from p.o. to IV Bumex today and monitor for response. Pending cardiology evaluation. Dyspnea is improved. 10/08: No overnight events, another 2000ml UOP. Dyspnea on exertion improved to 5 feet today. Dyspnea improved. On home 6 L nasal cannula oxygen still with some lower extremity edema. Creatinine improved to 2. He was to go home with home health with cardiology and nephrology outpatient follow-up. Consults: Cardiology Problem list: Acute hypoxic respiratory failure Acute on chronic systolic/diastolic CHF exacerbation, EF 20 to 25% History of cocaine abuse last use yesterday Anemia of chronic CHF History of CKD stage IIIstable History of COPDon trilogy CPAP at home History of asthma History of SSS/ NICM s/p BiV PPM/MARKETING PROGRAMS SPECIALIST-P (Biotronik); LVEF 20-25% Bi-V pacing 100% History of paroxysmal atrial fibrillation Greater than 30 minutes spent on d/c home with home health Discharge Information Condition at Discharge: Improved Follow Up: Weeks (1) Disposition/Orders: D/C to Home w/ HH Scheduled Amiodarone Hcl (Amiodarone Hcl) 200 Mg Tablet, 200 MG PO DAILY for A-fib, #30 Ref 3 Prescribed by: PENNIE GONZALEZ MD on 03/04/20 1035 Last Action: Continued on 10/06/201925 by ANT ALVAREZ MD Apixaban (Eliquis) 5 Mg Tablet, 5 MG PO BID for blood thinner, (Reported) Entered as Reported by: SULAIMAN MARTIN on 08/02/19 1026 Last Action: Continued on 10/06/201925 by ANT ALVAREZ MD Atorvastatin Calcium (Atorvastatin Calcium) 40 Mg Tablet, 40 MG PO HS for FOR CHOLESTEROL, #30 Ref 0 (Reported) Entered as Reported by: TYAO BENJAMIN RN on 09/05/201814 Last Action: Continued on 10/06/201925 by ANT ALVAREZ MD Bumetanide (Bumetanide) 1 Mg Tablet, 1 MG PO BID for Heart Failure for 30 Days, #60 Ref 3 Prescribed by: ANT ALVAREZ MD on 04/07/20 0805 Last Action: Continued on 10/06/201925 by ANT ALVAREZ MD Hydralazine Hcl (Hydralazine Hcl) 25 Mg Tablet, 25 MG PO TID for CHF for 30 Days, #90 Ref 5 Prescribed by: CARMEN OROZCO MD on 09/10/20 1054 Last Action: Continued on 10/06/201925 by ANT ALVAREZ MD Ipratropium/Albuterol Sulfate (Duoneb 0.5-3(2.5) Mg/3 Ml) 3 Ml Ampul.neb, 3 ML NEB Q4HRS for COPD for 30 Days, #180 Prescribed by: HIREN ZHOU MD on 05/09/19 1420 Last Action: Continued on 10/06/201925 by ANT ALVAREZ MD Isosorbide Mononitrate (Isosorbide Mononitrate Er) 30 Mg Tab.er.24h, 30 MG PO DAILY for CHF for 30 Days, #30 Ref 5 Prescribed by: CARMEN OROZCO MD on 09/10/20 1054 Last Action: Continued on 10/06/201925 by ANT ALVAREZ MD Metoprolol Succinate (Toprol Xl) 25 Mg Tab.er.24h, 1 TAB PO DAILY for blood pressure for 30 Days, #30 Ref 0 (Reported) Entered as Reported by: SULAIMAN MARTIN on 08/02/19 1458 Last Action: Continued on 10/06/201925 by ANT ALVAREZ MD Potassium Chloride (Potassium Chloride ) 20 Meq Tablet.er, 20 MEQ PO DAILY for SUPPLEMENT for 30 Days, #30 Ref 2 Prescribed by: CARMEN OROZCO MD on 02/02/20 1008 Last Action: Reviewed on 10/05/20 2300 by NED JOSEPH RN Scheduled PRN Albuterol Sulfate (Albuterol Sulfate Neb Soln) 0.63 Mg/3 Ml Vial.neb, 0.63 MG NEB PRN Q4HRS PRN for SHORTNESS OF BREATH for 30 Days, #100 Ref 2 NEEDED Prescribed by: LOU HERNANDEZ on 6/26/17 0932 Last Action: Reviewed on 10/05/202299 by NED JOSEPH RN Magnesium Hydroxide (Milk Of Magnesia) 2,400 Mg/10 Ml Oral.susp, 2,400 MG PO PRN DAILY PRN for CONSTIPATION, (Reported) Entered as Reported by: LUIS HORNER on 03/28/201825 Last Action: Reviewed on 10/05/202299 by NED JOSEPH RN Justicifation of Admission Dx: Justifications for Admission: Justification of Admission Dx: Yes Respiratory Failure: Severe Resp Distress CARMEN OROZCO MD Oct 09, 2020 12:55
--- NOTE | 2020-10-09 13:30 | NUR ---
Discharge Note: NEIL EWING Discharge instructions and discharge home medications reviewed with Patient and a copy given. All questions have been answered and understanding verbalized. IV out and monitor placed at nursing station. Patient discharged to home with home health via [facility]. Follow up scheduled for November 20, at 12:45. Advised patient the importance of making sure he attends the appointments.
== END 2020-10-09 13:37 | disposition home health service (06) | DRG 291 ==
LOC: ER 15:47 → 2 NORTH 17:44
PROVIDERS: ADMIT Family Medicine; ATTEND Family Medicine
DX: I13.0 Hypertensive heart and chronic kidney disease with heart failure and stage 1 through stage 4 chronic kidney disease, or unspecified chronic kidney disease (principal); I50.43 Acute on chronic combined systolic (congestive) and diastolic (congestive) heart failure; J96.21 Acute and chronic respiratory failure with hypoxia; J44.1 Chronic obstructive pulmonary disease with (acute) exacerbation; N17.9 Acute kidney failure, unspecified; I42.8 Other cardiomyopathies; D64.9 Anemia, unspecified; E78.5 Hyperlipidemia, unspecified; I48.0 Paroxysmal atrial fibrillation; F14.10 Cocaine abuse, uncomplicated; N18.30 Chronic kidney disease, stage 3 unspecified; Z82.49 Family history of ischemic heart disease and other diseases of the circulatory system; Z83.3 Family history of diabetes mellitus; Z87.891 Personal history of nicotine dependence; Z99.81 Dependence on supplemental oxygen; Z88.1 Allergy status to other antibiotic agents; Z95.810 Presence of automatic (implantable) cardiac defibrillator
CPT/HCPCS: 36415; 71045; 80048; 80053; 83735; 83880; 84100; 84484; 85025; 93005; 94640; 94760; 96374; 96375; J2405; J2930; J3490; 97110-GP; 97535-GO; 99285-25; G0378

== ENCOUNTER 2021-04-22 19:19 | Inpatient (IN) | payer OTHER ==
[~2021-04-22] VITALS: Ht 185.4 cm; Wt 77.3 kg
[~2021-04-22 19:19] MED LIST changes: +AMIO200T53 PO; -AMIO200T6 PO; +ASPI-630 PO; +DOXY50TA8 PO; +LORA2ORA7 PO; +METO50TA6 PO; +MOR20SL SL; +TORS100T3 PO
[2021-04-22] MEDS ORDERED: GLYCOPYRROLATE 1 MG/5 ML VIAL. IV PRN (19:45)
[2021-04-22] MEDS ORDERED: ACETAMINOPHEN 650 MG SUPP.RECT. PR PRN (19:45)
[2021-04-22] MEDS ORDERED: BISACODYL 10 MG SUPP.RECT. PR PRN (19:45)
[2021-04-22] MEDS ORDERED: MORPHINE SULFATE 2 MG/ML INJ. IV PRN (19:45)
[2021-04-22 19:55] VITALS: BP 141/86
[2021-04-22] MEDS ORDERED: MORPHINE SULFATE 4 MG/ML INJ. IVP PRN (20:00)
[2021-04-22] MEDS ORDERED: NALOXONE 0.4 MG/ML VIAL. IV PRN (20:30)
[2021-04-22] MEDS ORDERED: SCOPOLAMINE 1.5MG PATCH. TD SCH (21:00)
[2021-04-22] MEDS: IPRATROPIUM/ALBUTEROL 20/100mcg/INH INHALER. INH SCH (23:16)
[2021-04-22] MEDS: MORPHINE SULFATE 30 ML IV PRN (23:56)
[2021-04-22] MEDS: IV NORMAL SALINE 1000ML BAG 1,000 ML IV SCH (23:58)
[2021-04-23 07:15] VITALS: BP 124/79
[2021-04-23] MEDS: IPRATROPIUM/ALBUTEROL 20/100mcg/INH INHALER. INH SCH ×4 (08:00→20:00)
[2021-04-23] MEDS: MORPHINE SULFATE 30 ML IV PRN ×2 (12:24→23:32)
--- NOTE | 2021-04-23 15:21 | PDOC1 ---
History and Physical Date of Service: DOS: DATE: 04/23/21 TIME: 15:19 History of Present Illness: HPI: 65 year old male with hx of asthma, COPD and CHF here for shortness of breath. Patient is chronically on 6L NC at baseline. Reportedly has not been using his supplemental O2. Per EMS, patient's initial O2 sat was 54% which improved to 75% after 2x DuoNeb and CPAP. Patient reports he has been having worsening shortness of breath for a month now. He denies any nausea or vomiting. He does report feeling ill for a week and states he has intermittent fevers. Patient is unvaccinated for COVID-19. History of present illness is limited secondary to respiratory distress. Patient wanted to go through hospice. Patient was transition to inpatient hospice. Past Medical/Surgical History: PMH/PSH: PMH/PSH: Past Medical History: A-Fib, Angina, Asthma, CHF, COPD, Hypertension, ID, Renal Disease, [id number], ANGIOEDEMA,LUDWIGS ANGINA,CHRONIC RESP FAILURE,NSTEMI,LBBB Past Surgical History: Pacemaker, Abdominal Hernia Allergies: Allergies: Coded Allergies: levofloxacin (Verified Allergy, Intermediate, Itching, 01/28/20) Family History: Family History: Reviewed with no relevant findings in the chart Social History: Social History: Smoking Status: Former Smoker Alcohol Use: Rarely Drug Use: Cocaine, Marijuana Current Medications: Current Medications Current Medications Morphine Sulfate (Morphine Sulfate) 2 mg PRN Q1HR PRN IV SOA/PAIN; Start 04/22/21 at 19:45 Lorazepam (Ativan) 2 mg PRN Q6HRS PRN PO ANXIETY / AGITATION Last administered on 04/23/21at 12:23; Start 04/22/21 at 19:45 Bisacodyl (Dulcolax Supp) 10 mg PRN DAILY PRN AR CONSTIPATION; Start 04/22/21 at 19:45 Acetaminophen (Tylenol Supp) 650 mg PRN Q4HRS PRN AR MILD PAIN / TEMP > 100.3'F; Start 04/22/21 at 19:45 Scopolamine (Transderm-Scop) 1 patch Q3DAYS TD Last administered on 04/23/21at 00:06; Start 04/22/21 at 21:00 Glycopyrrolate (Robinul) 1 mg PRN Q4HRS PRN IV SECRETION; Start 04/22/21 at 19:45 Morphine Sulfate (Morphine Sulfate) 4 mg PRN Q1HR PRN IVP SOA/PAIN; Start at 20:00 Albuterol/ Ipratropium (Combivent Respimat 20-100 Mcg) 1 puff RTQID INH Last administered on 04/22/21at 23:16; Start 04/22/21 at 21:00 Naloxone HCl (Narcan) 0.4 mg PRN Q2MIN PRN IV SEE INSTRUCTIONS; Start 04/22/21 at 20:30 Sodium Chloride 1,000 ml @ 25 mls/hr Q24H IV Last administered on 04/22/21at 23:58; Start 04/22/21 at 20:30 Morphine Sulfate 30 ml @ 0 mls/hr CONT PRN PRN IV PER PROTOCOL Last administered on 04/23/21at 12:24; Start 04/22/21 at 20:30 Active Scripts Active Isosorbide Mononitrate Er (Isosorbide Mononitrate) 30 Mg Tab.er.24h 30 Mg PO DAILY 30 Days Duoneb 0.5-3(2.5) Mg/3 Ml (Albuterol/Ipratropium) 3 Ml Ampul.neb 3 Ml NEB Q4HRS 30 Days Albuterol Sulfate Neb Soln (Albuterol Sulfate) 0.63 Mg/3 Ml Vial.neb 0.63 Mg NEB PRN Q4HRS PRN 30 Days NEEDED Reported Lorazepam Intensol (Lorazepam) 2 Mg/1 Ml Oral.conc 0.5 Mg PO PRN Q2HRS PRN Roxanol Conc (Morphine Sulfate) 20 Mg/1 Ml Solution 10 Mg SL PRN Q2HRS PRN ROS: Review of Systems REVIEW OF SYSTEMS: GENERAL: Denies weakness SKIN: No bruising, hair changes or rashes. EYES: No blurred, double or loss of vision. NOSE AND THROAT: No history of nosebleeds, hoarseness or sore throat. HEART: No history of palpitations, chest pain or shortness of breath on exertion. LUNGS: Shortness of breath GASTROINTESTINAL: Denies changes in appetite, nausea, vomiting, diarrhea or constipation. GENITOURINARY: No history of frequency, urgency, hesitancy or nocturia. NEUROLOGIC: Denies history of numbness, tingling, or tremor. PSYCHIATRIC: No history of panic, anxiety or depression. ENDOCRINE: No history of heat or cold intolerance, polyuria or polydipsia. EXTREMITIES: Denies joint pain, pain on walking or stiffness. Physical Exam: Vital Signs: Vital Signs Date Time Temp Pulse Resp B/P (MAP) Pulse Ox O2 Delivery O2 Flow Rate FiO2 04/23/21 12:24 40 91 04/23/21 11:21 BiPAP/CPAP 04/23/21 07:15 98.0 69 124/79 (94) 98.0 Physcial Exam: General: Well developed, well nourished, no acute distress, well appearing HEENT: Pupils equally round and reactive to light, EOMI, no discharge, normal conjunctiva Neck: Supple, no nuchal rigidity, no JVD, trachea midline, no tenderness Cardiac: RRR, no murmurs, no gallops, no rubs Chest/Lungs: Bilateral rhonchi, moderate respiratory distress, no wheeze, no rhonchi, no crackles Abdomen: soft, non-distended, no guarding, no peritoneal signs, non-tender Back: No tenderness Extremities: +2 edema in bilateral lower extremities, pulses intact, non-tend er,capillary refill <3 sec bilateral upper and lower extremities, Neuro: Alert and oriented x 4, no focal deficits, normal speech Labs: Labs: No recent labs to review Images: Images No recent images to review Assessment/Plan Assessment/Plan Acute hypoxic respiratory failure requiring BiPAP support Acute on chronic CHF exacerbation Elevated troponin suggestive of type II demand ischemia, possible non-STEMI Moderate transaminitis likely related to congestive liver failure Cocaine positivity with history of cocaine abuse ASHLEY due to vasomotor nephropathy, possible cardiorenal syndrome History of combined systolic and diastolic CHF with LVEF of 25% and grade 3 reve rsible restrictive diastolic dysfunction on echocardiogram done in 09/07/2020 History of atrial fibrillation History of COPD History of chronic kidney disease History of SSS/NICM s/p BiV PPM/SHUTTLE PREPARATION SUPERVISOR-P (Biotronik) History of ID Continue with comfort care Justifications for Admission Other Justification CHF vs COPD exacerbation hypoxic resp fail ANT ALVAREZ MD Apr 23, 2021 15:21
[2021-04-23 19:30] VITALS: BP 140/97
[2021-04-24 07:00] VITALS: BP 119/66
[2021-04-24] MEDS: IPRATROPIUM/ALBUTEROL 20/100mcg/INH INHALER. INH SCH ×4 (08:00→20:00)
[2021-04-24] MEDS: IV NORMAL SALINE 1000ML BAG 1,000 ML IV SCH ×2 (08:30→16:56)
--- NOTE | 2021-04-24 13:38 | PDOC ---
[employer] PROGRESS NOTE Date of Service DOS: DATE: 04/24/21 TIME: 13:37 Chief Complaint Chief Complaint Assessment/Plan Acute hypoxic respiratory failure requiring BiPAP support Acute on chronic CHF exacerbation Elevated troponin suggestive of type II demand ischemia, possible non-STEMI Moderate transaminitis likely related to congestive liver failure Cocaine positivity with history of cocaine abuse ASHELY due to vasomotor nephropathy, possible cardiorenal syndrome History of combined systolic and diastolic CHF with LVEF of 25% and grade 3 reversible restrictive diastolic dysfunction on echocardiogram done in 09/07/2020 History of atrial fibrillation History of COPD History of chronic kidney disease History of SSS/NICM s/p BiV PPM/HOME HEALTH RN-P (Biotronik) History of RI Continue with comfort care History of Present Illness History of Present Illness 65 year old male with hx of asthma, COPD and CHF here for shortness of breath. Patient is chronically on 6L NC at baseline. Reportedly has not been using his supplemental O2. Per EMS, patient's initial O2 sat was 54% which improved to 75% after 2x DuoNeb and CPAP. Patient reports he has been having worsening shortness of breath for a month now. He denies any nausea or vomiting. He does report feeling ill for a week and states he has intermittent fevers. Patient is unvaccinated for COVID-19. History of present illness is limited secondary to respiratory distress. Patient wanted to go through hospice. Patient was transition to inpatient hospice. 04/24/2021 Patient seen examined bedside. Still on BiPAP machine and appears to be comfortable and resting. Patient's chart, labs, images were reviewed and di scussed with RN Vitals/I&O Vitals/I&O: Vital Signs Date Time Temp Pulse Resp B/P (MAP) Pulse Ox O2 Delivery O2 Flow Rate FiO2 04/24/21 11:42 73 BiPAP/CPAP 04/24/21 07:00 101.1 70 22 119/66 (83) 20.0 101.1 I & O 04/23/21 04/23/21 04/24/21 15:00 23:00 07:00 Intake Total 50 ml 0 ml 0 ml Balance 50 ml 0 ml 0 ml Physical Exam General: Alert Heart: Regular rate Lungs: Wheezing, Crackles Extremities: No clubbing Skin: No rashes Comment Review of Relevant I have reviewed the following items rishi (where applicable) has been applied. Justifications for Admission Other Justification CHF vs COPD exacerbation hypoxic resp fail ANT ALVAREZ MD Apr 24, 2021 13:38
[2021-04-24] MEDS: MORPHINE SULFATE 30 ML IV PRN (16:57)
--- NOTE | 2021-04-24 16:57 | NUR ---
pt has a full bag of fluids so no need for another bag
[2021-04-24 19:30] VITALS: BP 99/53
--- NOTE | 2021-04-24 22:00 | NUR ---
pt was pronounced at 2127 by rn and rn marily. [facility] was called and went over infor and it was determined that pt was not a [place]. spoke to dr reyes about pt dying. called brother yojana and left message with lev whom called back and he was notified. lemuel at [facility] was here earlier at 1999 and came back to assist with post mortum care. brother yojana could tell us the home and family had to decide tomorrow he said. notified nursing truck supervisor as well. lcrn
--- NOTE | 2021-04-25 11:55 | NUR ---
Patient's son, Saw James, called and notified this nurse that patient to be released to [facility]. His call back number is [phone]. Nursing bakery machine mechanic supervisor notified.
== END 2021-04-24 23:00 ==
LOC: 6 SOUTH 19:19
PROVIDERS: ADMIT Internal Medicine; ATTEND Internal Medicine
PROC: 5A09357 Assistance with Respiratory Ventilation, Less than 24 Consecutive Hours, Continuous Positive Airway Pressure (ICD-10-PCS; principal; 2021-04-22)
PROC: 5A0945A Assistance with Respiratory Ventilation, 24-96 Consecutive Hours, High Flow/Velocity Cannula (ICD-10-PCS; 2021-04-22)
DX: I13.0 Hypertensive heart and chronic kidney disease with heart failure and stage 1 through stage 4 chronic kidney disease, or unspecified chronic kidney disease (principal); J96.21 Acute and chronic respiratory failure with hypoxia; I21.A1 Myocardial infarction type 2; I50.43 Acute on chronic combined systolic (congestive) and diastolic (congestive) heart failure; N17.0 Acute kidney failure with tubular necrosis; I42.8 Other cardiomyopathies; F14.90 Cocaine use, unspecified, uncomplicated; I25.2 Old myocardial infarction; I48.91 Unspecified atrial fibrillation; J44.9 Chronic obstructive pulmonary disease, unspecified; N18.9 Chronic kidney disease, unspecified; Z51.5 Encounter for palliative care; Z87.891 Personal history of nicotine dependence; Z88.8 Allergy status to other drugs, medicaments and biological substances
CPT/HCPCS: 94660; J2270; J7030; G0378